=== PATIENT | male | born 1985 | race Caucasian/White ===

== ENCOUNTER → 2017-09-30 10:38 | Outpatient (CLI) | payer OTHER, SELFPAY ==
[2017-09-30 12:06] LABS: Absolute Neutrophil Count 3.9 X10^3/uL (2.0-7.7); Basophil# 0.03 X10^3/uL; Basophil% 0.4 % (0-1); Eosinophil# 0.58 X10^3/uL; Eosinophils% 7.8 % (0-5); Hematocrit 43.6 % (40-54); Lymphocyte % 32.4 % (19-41); Mean Corp Hgb Conc 34.4 g/gl (32-36); Mean Platelet Vol. 10.6 fl (6.2-12.0); Monocyte# 0.45 X10^3/uL; Monocyte% 6.1 % (0-10); Neutrophil # 3.93 X10^3/uL (2.7-7.7); Neutrophil % 53.2 % (47-70); Platelet Count 225 K/mm3 (150-450); RBC Distribution Width SD 40.1 fl (35.1-43.9); Red Blood Count 4.69 M/mm3 (4.6-6.2); White Blood Count 7.4 K/mm3 (4.4-11.0)
[2017-09-30 12:07] LABS: POSITIVE COUNT NO; POSITIVE DIFFERENTIAL NO; POSITIVE MORPHOLOGY NO
[2017-09-30 12:25] LABS: Anion Gap 8 (5-15); BUN 18 mg/dL (7-18); BUN/Creat Ratio 18.7 RATIO (10-20); Calcium,Total 8.8 mg/dL (8.5-10.1); Chloride 106 mmol/L (98-107); Creatinine, Serum 0.96 mg/dL (0.70-1.30); EST Glomerular Filtration Rate 96 mL/min (>60); Est Glom Filt Rate - Afr Amer 117 mL/min (>60); Glucose 306 mg/dL (74-106); Potassium 4.2 mmol/L (3.5-5.1); Sodium Level 136 mmol/L (136-145)
== END ==
PROVIDERS: Family Provider Family Medicine; PCP Family Medicine; Visit Provider Family Medicine
DX: E11.9 Type 2 diabetes mellitus without complications (principal); I10 Essential (primary) hypertension
CPT/HCPCS: 36415; 80048; 85025

== ENCOUNTER 2017-10-11 11:01 | Emergency (ER) | payer OTHER, SELFPAY ==
[2017-10-11 11:02] VITALS: BP 138/45; PULSE 81; RESP 10; TEMP 36.7; O2SAT 100; BMI 28.5
--- NOTE | 2017-10-11 11:31 | CT_ITS ---
STUDY: CT CHEST WITHOUT CONTRAST REASON FOR EXAM: Male, 32 years old. Trauma, pinned between tree limb and bucket truck, pain to upper back/shoulder. + LOC. RADIATION DOSAGE (If Supplied By Facility): CTDIvol = ( 24.83 ) mGy, DLP = ( 892.86 ) mGycm TECHNIQUE: Transaxial imaging was performed without the administration of intravenous contrast material. Individualized dose optimization techniques were used for this CT. COMPARISON: None. FINDINGS: There is a left lower lobe calcified granuloma. There are minimal dependent atelectatic changes. There is no demonstrated pleural abnormality. Normal heart and pericardium. Normal mediastinum. There are left hilar calcified lymph nodes.. Normal unenhanced pulmonary arteries. Normal aorta arch and descending thoracic aorta. There is an acute nondisplaced fracture of the right transverse process of C7, incompletely imaged. There is an acute nondisplaced fracture of the left 11th rib posteriorly. CT/Chest without Contrast IMPRESSION: There are fractures of the right transverse process of C7 and left 11th rib. Electronically Signed: Lashonda Leiva MD at 12:33 EDT , Service support ,
--- NOTE | 2017-10-11 11:31 | CT_ITS ---
STUDY: CT ABDOMEN AND PELVIS WITHOUT CONTRAST REASON FOR EXAM: Male, 32 years old. Trauma, pinned between tree limb and bucket truck, pain to upper back/shoulder. + LOC. RADIATION DOSAGE (If Supplied By Facility): CTDIvol = ( 24.13 ) mGy, DLP = ( 1324.85 ) mGycm TECHNIQUE: Transaxial images were obtained from the dome of the diaphragm to the symphysis pubis without oral contrast, and without intravenous contrast. Sagittal and coronal images were reconstructed. Individualized dose optimization techniques were used for this CT. COMPARISON: None. FINDINGS: Normal liver. The gallbladder is contracted. There are multiple benign calcified granulomata of the spleen. Normal pancreas. Normal bilateral adrenal glands. Normal right kidney. Normal left kidney. Normal visualized stomach. Normal small intestine. Normal colon. The appendix is visualized and appears normal. Normal abdominal aorta. Normal inferior vena cava. Normal retroperitoneum. Normal urinary bladder. Normal abdominal wall. There are acute minimally displaced fractures of the left transverse processes of L2-L4. CT/Abdomen/Pelvis without Cont IMPRESSION: There are acute minimally displaced fractures of the left transverse processes of L2-L4. Electronically Signed: Lashonda Leiva MD at 12:24 EDT , Service support ,
--- NOTE | 2017-10-11 11:31 | CT_ITS ---
STUDY: CT THORACIC SPINE WITHOUT CONTRAST REASON FOR EXAM: Male, 32 years old. Trauma, pinned between tree limb and bucket truck, pain to upper back/shoulder. + LOC. RADIATION DOSAGE (If Supplied By Facility): CTDIvol = ( 28.91 ) mGy, DLP = ( 1237.30 ) mGycm TECHNIQUE: The patient was scanned in a multi detector CT scanner. High resolution imaging was performed. Sagittal and coronal images were reconstructed. Individualized dose optimization techniques were used for this CT. COMPARISON: None. FINDINGS: Normal kyphosis of the thoracic spine. There is no substantial scoliosis. There is mild endplate spondylosis at T2-3 and T3-4 with mild loss of disc height. There is an acute nondisplaced fracture of the left 11th rib posteriorly. CT/Spine Thoracic without Contras IMPRESSION: No vertebral body fracture. Electronically Signed: Lashonda Leiva MD at 12:36 EDT , Service support ,
--- NOTE | 2017-10-11 11:31 | CT_ITS ---
STUDY: CT BRAIN WITHOUT CONTRAST REASON FOR EXAM: Male, 32 years old. History of trauma and loss of consciousness. RADIATION DOSAGE (If Supplied By Facility): CTDIvol = ( 44.99 ) mGy, DLP = ( 812.98 ) mGycm TECHNIQUE: Transaxial CT imaging of the brain was performed without administration of intravenous contrast material. Individualized dose optimization techniques were used for this CT. COMPARISON: None. FINDINGS: Normal soft tissue structures. Normal calvarium. Normal size ventricles and extra-axial spaces for the patient's age. Normal white matter tracts of the cerebral hemispheres. Normal basal ganglia and thalami. Normal brainstem. Normal cerebellum. There is no intracranial hemorrhage. There are no findings of an acute ischemic infarction. Opacification of the ethmoid sinuses bilaterally. Mucosal thickening of the maxillary sinuses. Mild mucosal thickening of the sphenoid sinus. CT/Brain/Head without Contrast IMPRESSION: Sinusitis. Electronically Signed: Bryant Swan MD at 12:37 EDT Tel [phone], Service support ,
--- NOTE | 2017-10-11 11:31 | CT_ITS ---
STUDY: CT CERVICAL SPINE WITHOUT CONTRAST REASON FOR EXAM: Male, 32 years old. History of trauma. Upper back pain and shoulder pain. Loss of consciousness. RADIATION DOSAGE (If Supplied By Facility): CTDIvol = ( 27.52 ) mGy, DLP = ( 641.04 ) mGycm TECHNIQUE: High resolution transaxial imaging was performed without contrast material. Sagittal and coronal images were reconstructed. Individualized dose optimization techniques were used for this CT. COMPARISON: None FINDINGS: Normal craniovertebral junction. Normal anterior atlantoaxial articulation. Normal odontoid process. Normal cervical lordosis. Normal vertebral bodies and posterior osseous elements. C2-3: Normal endplates. Normal disc height and morphology. Normal central canal and intervertebral neuroforamina. C3-4: Normal endplates. Normal disc height and morphology. Normal central canal and intervertebral neuroforamina. C4-5: Normal endplates. Normal disc height and morphology. Normal central canal and intervertebral neuroforamina. C5-6: There is evidence of a comminuted nondisplaced fracture of the posterior arch of the C6 vertebrae on the right side. Nondisplaced fracture along the medial aspect of the facet joint on the left side. C6-7: Nondisplaced fracture of the lateral mass of the C7 vertebrae on the right side. C7-T1: Normal endplates. Normal disc height and morphology. Normal central canal and intervertebral neuroforamina. Normal visualized soft tissue structures. CT/Spine Cervical without Contras IMPRESSION: Comminuted nondisplaced fracture of the posterior arch of the C6 vertebrae on the right side. Nondisplaced fracture of the lateral mass of the C7 vertebrae on the right side. Electronically Signed: Bryant Swan MD at 12:44 EDT Tel [phone], Service support ,
[2017-10-11 11:57] LABS: Absolute Lymphocyte Count 2.22 X10^3/ul (0.83-4.51); Absolute Neutrophil Count 3.7 X10^3/uL (2.0-7.7); Basophil# 0.04 X10^3/uL; Basophil% 0.6 % (0-1); Eosinophil# 0.46 X10^3/uL; Eosinophils% 6.7 % (0-5); Hematocrit 40.4 % (40-54); Hemoglobin 14.7 g/dl (13.0-16.5); Lymphocyte # 2.22 X10^3/ul (4.0); Lymphocyte % 32.3 % (19-41); Mean Corp Hgb Conc 36.4 g/gl (32-36); Mean Corpuscular Hgb 33.3 pg (27.0-32.0); Mean Corpuscular Volume 91.4 fL (80-94); Mean Platelet Vol. 10.4 fl (6.2-12.0); Monocyte# 0.45 X10^3/uL; Monocyte% 6.5 % (0-10); Neutrophil # 3.69 X10^3/uL (2.7-7.7); Neutrophil % 53.6 % (47-70); Platelet Count 238 K/mm3 (150-450); RBC Distribution Width CV 11.6 % (11.6-14.6); RBC Distribution Width SD 38.5 fl (35.1-43.9); Red Blood Count 4.42 M/mm3 (4.6-6.2); White Blood Count 6.9 K/mm3 (4.4-11.0)
[2017-10-11 11:58] LABS: POSITIVE COUNT NO; POSITIVE DIFFERENTIAL NO; POSITIVE MORPHOLOGY NO
[2017-10-11 12:00] LABS: Anion Gap 7 (5-15); BUN 21 mg/dL (7-18); BUN/Creat Ratio 19.6 RATIO (10-20); Calcium,Total 9.2 mg/dL (8.5-10.1); Chloride 105 mmol/L (98-107); Creatinine, Serum 1.07 mg/dL (0.70-1.30); EST Glomerular Filtration Rate 85 mL/min (>60); Est Glom Filt Rate - Afr Amer 103 mL/min (>60); Estimated Creatinine Clearance 106.54 ml/min; Glucose 295 mg/dL (74-106); International Normalized Ratio 0.9; Potassium 4.1 mmol/L (3.5-5.1); Prothrombin Time (Protime)PT. 12.4 SECONDS (11.7-14.9); Sodium Level 137 mmol/L (136-145)
[2017-10-11 12:21] VITALS: BP 113/72; PULSE 77; RESP 15; O2SAT 97; O2SAT 99
[2017-10-11] MEDS: Morphine 4 MG/ML Syringe IV (12:27)
--- NOTE | 2017-10-11 13:09 | ED.DCSUM_ITS ---
- ER Visit Summary Date of Service: 10/11/17 Chief Complaint: Back pain, injury History of Present Illness: The patient is a 32 M who was cutting down a tree when the tree and then pinned him up against another tree. He has having pain in his head, neck and back. He was unable to move his legs after this injury. He was entrapped for about 10 minutes between 2 trees. EMS then extricated him a put him in a c-collar and backboard. Physical Examination: Vital signs reviewed. HEENT exam unremarkable. C-collar is in place. He has lower cervical spine tenderness to palpation. Heart is regular rhythm. Lungs are clear. Abdomen is soft and nontender. Back exam reveals some thoracic tenderness to palpation. Skin shows no trauma. GCS 15. He has weakness of the bilateral legs with 0 out of 5 strength. His arms are 5 out of 5 strength. He has no sensation on the right below the nipple line and no sensation on the left below the waistline Test Results: Blood work is unremarkable except for glucose of 295. CAT scan of the head reveals no findings. CAT scan of the chest reveals a C7 transverse process fracture. CAT scan of the abdomen and pelvis reveals an L2 and L4 transverse process fracture. Cervical spine CT reveals a C6 posterior arch and a C7 lateral mass fracture. No thoracic spine fractures. He does have a left 11th rib fracture. Emergency Department Course and Treatment: Patient was given morphine for pain. Spinal precautions were maintained. My concern is that he has a spinal cord injury with these fractures. Patient will be transferred to [facility] for a trauma evaluation Treatment Plan: [] Disposition: Transfer Impression: C6 and C7 fracture, L2 through L4 fracture. Left 11th rib fracture. Spinal cord injury This note was generated with [employer]elli[employer] dictation software. It may contain incorrect words, spelling, and punctuation that were not noted in review of the chart prior to signing ED Disposition - Plan for ED Patient: Chief Complaint: Trauma Referrals: Eugene Rodriguez MD [Primary Care Provider] -
[2017-10-11] MEDS: HYDROmorphone 1 MG/ML Syringe IV (13:20)
[2017-10-11 13:32] VITALS: BP 118/72; PULSE 70; RESP 16; O2SAT 94
--- NOTE | 2017-10-11 13:50 | NURSING ---
CALLED ADON[facility] [place]
[2017-10-11] MEDS: fentaNYL 100 MCG/2 ML Ampul IV (14:21)
[2017-10-11 14:24] VITALS: BP 104/64; PULSE 78; RESP 18; O2SAT 96
== END 2017-10-11 14:25 | disposition short-term general hospital (02) ==
PROVIDERS: Emergency Provider Emergency Medicine; Family Provider Family Medicine; PCP Family Medicine
DX: S12.500A Unspecified displaced fracture of sixth cervical vertebra, initial encounter for closed fracture (principal); S12.600A Unspecified displaced fracture of seventh cervical vertebra, initial encounter for closed fracture; S32.029A Unspecified fracture of second lumbar vertebra, initial encounter for closed fracture; S32.039A Unspecified fracture of third lumbar vertebra, initial encounter for closed fracture; S32.049A Unspecified fracture of fourth lumbar vertebra, initial encounter for closed fracture; S22.32XA Fracture of one rib, left side, initial encounter for closed fracture; T14.8XXA Other injury of unspecified body region, initial encounter; W23.1XXA Caught, crushed, jammed, or pinched between stationary objects, initial encounter; Y93.9 Activity, unspecified; Y92.9 Unspecified place or not applicable; E11.9 Type 2 diabetes mellitus without complications; Z79.84 Long term (current) use of oral hypoglycemic drugs; Z79.899 Other long term (current) drug therapy; Z72.0 Tobacco use
CPT/HCPCS: 70450; 71250; 72125; 72128; 74176; 80048; 85025; 85610; 96374; 96375; 99285; A4216

== ENCOUNTER 2018-11-01 11:30 | Outpatient (RCR) | payer OTHER, SELFPAY ==
[2018-10-12 09:54] VITALS: BP 82/48; PULSE 93; RESP 16; TEMP 36.4; BMI 21.8
--- NOTE | 2018-10-12 17:03 | PCM.WC.HP ---
(1) Sacral decubitus ulcer, stage IV Status: Chronic Code(s): L89.154 - Pressure ulcer of sacral region, stage 4 (2) Decubitus ulcer of right buttock, stage 4 Status: Chronic Code(s): L89.314 - Pressure ulcer of right buttock, stage 4 (3) Decubitus ulcer of left buttock, stage 4 Status: Chronic Code(s): L89.324 - Pressure ulcer of left buttock, stage 4 (4) Chronic osteomyelitis involving pelvic region and thigh Status: Chronic Code(s): M86.659 - Other chronic osteomyelitis, unspecified thigh (5) Paraplegia Status: Chronic Code(s): G82.20 - Paraplegia, unspecified History of Present Illness Date of Service: 10/17/18 Chief Complaint: Non healing decubitus ulcers. History of Wound: Mr. Joyce is a 33yo who presents to the wound center for management of his chronic decubitus ulcers. Initial sacral ulcer was said to have started in November and Buttock ulcers were noted subsequently. He has had an extensive hospital stay over the last couple of months following a work related injury. Both during his hopsital and assisted stays, he had wound care ranging from surgical debridement, wound vac and collagen use. He was scheduled to be restarted on his wound Vac prior to his discharge from the [place]. He reports significant drainage from the wounds. Also of note is a history of osteomyelitis for which he was on a 6 week IV antibiotic. His however states they were informed that he had developed chronic extensive pelvic area osteomyelitis. He feels well otherwise at this time and denies chills, fever,nausea, vomitting or change in bowel habit. Past Medical History Past Medical History: Chronic Problems Sacral decubitus ulcer, stage IV (Chronic) Decubitus ulcer of right buttock, stage 4 (Chronic) Decubitus ulcer of left buttock, stage 4 (Chronic) Chronic osteomyelitis involving pelvic region and thigh (Chronic) Paraplegia (Chronic) Allergies/Adverse Reactions: Allergies lidocaine Allergy (Verified 10/12/18 10:43) Unknown Home Medications: Ambulatory Orders Medication Instructions Recorded Atorvastatin Calcium [Lipitor] 20 mg PO QHS 10/11/17 Sitagliptin Phosphate [Januvia] 100 mg PO DAILY 10/11/17 Baclofen 5 mg PO BID 10/12/18 Diazepam [Valium] 5 mg PO BID 10/12/18 Fentanyl 25 ea TD 10/12/18 Ferrous Sulfate 325 mg PO 10/12/18 Insulin Glargine,Hum.rec.anlog 10 unit SQ 10/12/18 [Lantus Solostar] Insulin Lispro [Humalog KwikPen] unit SQ 10/12/18 Magnesium Oxide [Magnesium] 400 mg PO BID 10/12/18 Melatonin 3 mg PO 10/12/18 Metoclopramide HCl [Reglan] 5 mg PO TID 10/12/18 Oxycodone [Oxyfast] 10 mg PO Q4H PRN 10/12/18 Pregabalin [Lyrica] 50 mg PO BID 10/12/18 Sitagliptin Phosphate [Januvia] 100 mg PO 10/12/18 traZODone [Desyrel] 100 mg PO QHS 10/12/18 Smoking Status: Former smoker Review of Systems Constitutional: Denies: Anorexia, Chills, Fever Eyes: Denies: Blurred vision, Redness HEENT: Denies: Difficulty Swallowing Cardiovascular: Denies: Chest Pain, Chest Tightness Respiratory: Denies: Hemoptysis Gastrointestinal: Denies: Hematemesis, Vomiting - Physical Exam Vital Signs Temp Pulse Resp BP 97.6 F L 93 16 82/48 L 10/12/18 09:54 10/12/18 09:54 10/12/18 09:54 10/12/18 09:54 General: Alert, Oriented x3, Cooperative HEENT: Atraumatic, Normocephalic Oral: Moist Mucosa Neck: Supple Abdomen: Non-Distended Extremities: No cyanosis Skin: Ulcer/ Wound Wound Measurements and Assessment WC - Nurse 1 - General Ulcer Measurement Start: 10/12/18 09:54 Freq: Status: Active Protocol: Activity Type Activity Date Activity User E-Sign Co-Sign Detail Recorded Client Recorded Date Recorded By Document 10/12/18 09:54 DL [email or web address] 10/12/18 10:36 DL 10/12/18 09:54 Wound Center Nurse 1 [Ulcer Assessment] #3 L Buttucks -Current Size (cm) - Length 10 -Current Size (cm) - Width 6.3 -Current Size (cm) - Depth 3.4 -Total Square Cm 63.0 -Photo Taken Yes -Tunneling Position (O'clock) 1 -Tunneling Distance (cm) 5 -Classification - Thickness Full Thickness without Exposed Support Structure -Exudate Amt Medium -Exudate Type Serosanguineous -Wound Margin Thickened & Rolled Under -Granulation Amt Medium (34-66%) -Granulation Quality Red -Necrosis Amt Medium (34-66%) -Necrotic Tissue Type Adherent Slough -Structure Exposed N/A -Texture (Sheyla-wound Skin Appearance) Scarring -Moisture (Sheyla-wound Skin Appearance No Abnormality ) -Color (Sheyla-wound Skin Appearance) No Abnormality -Temperature (Sheyla-wound Skin No Abnormality Appearance) (Pt Warm) -Tenderness on Palpation (Sheyla-wound No Skin Appearance) -Ulcer Cleansing Wound Cleanser -Foul Odor after Cleansing No #2 Scaral Cluster -Current Size (cm) - Length 13 -Current Size (cm) - Width 11.2 -Current Size (cm) - Depth 1.8 -Total Square Cm 145.6 -Photo Taken Yes -Undermining/Tunneling Starts (O' 7 clock) -Undermining/Tunneling Ends (O'clock) 11 -Maximum Distance (cm) 1.8 -Undermining/Tunneling Starts #2 (O' 1 clock) -Undermining/Tunneling Ends #2 (O' 4 clock) -Maximum Distance #2 (cm) 2.1 -Circular Undermining No -Classification - Thickness Full Thickness without Exposed Support Structure -Exudate Amt Medium -Exudate Type Serosanguineous -Wound Margin Thickened & Rolled Under -Granulation Amt Large (67-100%) -Granulation Quality Red -Necrosis Amt Medium (34-66%) -Necrotic Tissue Type Adherent Slough -Structure Exposed N/A -Texture (Sheyla-wound Skin Appearance) Scarring -Moisture (Sheyla-wound Skin Appearance No Abnormality ) -Color (Sheyla-wound Skin Appearance) No Abnormality -Temperature (Sheyla-wound Skin No Abnormality Appearance) (Pt Warm) -Foul Odor after Cleansing Yes, Due to Product Use #1 R Buttocks -Current Size (cm) - Length 9.7 -Current Size (cm) - Width 6 -Current Size (cm) - Depth 1.8 -Total Square Cm 58.2 -Photo Taken Yes -Undermining/Tunneling Starts (O' 12 clock) -Undermining/Tunneling Ends (O'clock) 2 -Maximum Distance (cm) 1.8 -Classification - Thickness Full Thickness without Exposed Support Structure -Exudate Amt Medium -Exudate Type Serosanguineous -Wound Margin Thickened & Rolled Under -Granulation Amt Medium (34-66%) -Granulation Quality Red -Necrosis Amt Medium (34-66%) -Necrotic Tissue Type Adherent Slough -Structure Exposed N/A -Texture (Sheyla-wound Skin Appearance) Scarring -Moisture (Sheyla-wound Skin Appearance No Abnormality ) -Color (Sheyla-wound Skin Appearance) Rubor -Temperature (Sheyla-wound Skin No Abnormality Appearance) (Pt Warm) -Tenderness on Palpation (Sheyla-wound No Skin Appearance) -Ulcer Cleansing Wound Cleanser -Foul Odor after Cleansing No WC - Nurse 2 - General Ulcer CM Notes Start: 10/12/18 09:54 Freq: Status: Active Protocol: Activity Type Activity Date Activity User E-Sign Co-Sign Detail Recorded Client Recorded Date Recorded By Document 10/12/18 11:30 MW [id number] 10/12/18 11:55 MW 10/12/18 11:30 Wound Center Nurse 2 [Procedure/Treatment] #3 L Buttucks -Time 11:33 -Correct Patient Yes -Correct Side, Site, Position Yes -Correct Procedure Yes -Procedure Performed Yes -Type of Procedure Debridement -Clinical Debridement Subcutaneous -Post Debridement Size (cm) - Length 10.0 -Post Debridement Size (cm) - Width 7.0 -Post Debridement Size (cm) - Depth 4.0 -Total Square Cm 70.00 -Wound/Ulcer Outcome Not Healed -Ulcer Cleansing Rinsed/ Irrigated with Saline -Foul Odor after Cleansing No -Bioengineered Tissue No -Bleeding Controlled with Pressure -Offloading No -Treatment Response Procedure Tolerated Well #2 Scaral Cluster -Time 11:33 -Correct Patient Yes -Correct Side, Site, Position Yes -Correct Procedure Yes -Procedure Performed Yes -Type of Procedure Debridement -Clinical Debridement Subcutaneous -Post Debridement Size (cm) - Length 12.0 -Post Debridement Size (cm) - Width 14.5 -Post Debridement Size (cm) - Depth 3.3 -Total Square Cm 174.00 -Wound/Ulcer Outcome Not Healed -Ulcer Cleansing Rinsed/ Irrigated with Saline -Foul Odor after Cleansing No -Bioengineered Tissue No -Bleeding Controlled with Pressure -Other UNDERMINING 7- 11 & 12-5, 3. 0CM -Offloading No -Treatment Response Procedure Tolerated Well #1 R Buttocks -Time 11:32 -Correct Patient Yes -Correct Side, Site, Position Yes -Correct Procedure Yes -Procedure Performed Yes -Type of Procedure Debridement -Clinical Debridement Subcutaneous -Post Debridement Size (cm) - Length 10.0 -Post Debridement Size (cm) - Width 5.0 -Post Debridement Size (cm) - Depth 2.0 -Total Square Cm 50.00 -Wound/Ulcer Outcome Not Healed -Ulcer Cleansing Rinsed/ Irrigated with Saline -Foul Odor after Cleansing No -Bioengineered Tissue No -Bleeding Controlled with Pressure -Other UNDERMINING 12- 4, 3.0CM -Offloading No -Treatment Response Procedure Tolerated Well [See Physician Procedure note for Specifics] Pain Scale: 0-10 Numeric [Pain] -Is Patient Pain Free? Yes Neurological: Cranial nerves II-XII grossly intact Psych/Mental Status: Normal Affect Debridement Note Post-Debridement Measurements/Treatment WC - Nurse 2 - General Ulcer CM Notes Start: 10/12/18 09:54 Freq: Status: Active Protocol: Activity Type Activity Date Activity User E-Sign Co-Sign Detail Recorded Client Recorded Date Recorded By Document 10/12/18 11:30 MW [id number] 10/12/18 11:55 MW 10/12/18 11:30 Wound Center Nurse 2 #3 L Buttucks -Time 11:33 -Correct Patient Yes -Correct Side, Site, Position Yes -Correct Procedure Yes -Procedure Performed Yes -Type of Procedure Debridement -Clinical Debridement Subcutaneous -Post Debridement Size (cm) - Length 10.0 -Post Debridement Size (cm) - Width 7.0 -Post Debridement Size (cm) - Depth 4.0 -Total Square Cm 70.00 -Wound/Ulcer Outcome Not Healed -Ulcer Cleansing Rinsed/ Irrigated with Saline -Foul Odor after Cleansing No -Bioengineered Tissue No -Bleeding Controlled with Pressure -Offloading No -Treatment Response Procedure Tolerated Well #2 Scaral Cluster -Time 11:33 -Correct Patient Yes -Correct Side, Site, Position Yes -Correct Procedure Yes -Procedure Performed Yes -Type of Procedure Debridement -Clinical Debridement Subcutaneous -Post Debridement Size (cm) - Length 12.0 -Post Debridement Size (cm) - Width 14.5 -Post Debridement Size (cm) - Depth 3.3 -Total Square Cm 174.00 -Wound/Ulcer Outcome Not Healed -Ulcer Cleansing Rinsed/ Irrigated with Saline -Foul Odor after Cleansing No -Bioengineered Tissue No -Bleeding Controlled with Pressure -Other UNDERMINING 7- 11 & 12-5, 3. 0CM -Offloading No -Treatment Response Procedure Tolerated Well #1 R Buttocks -Time 11:32 -Correct Patient Yes -Correct Side, Site, Position Yes -Correct Procedure Yes -Procedure Performed Yes -Type of Procedure Debridement -Clinical Debridement Subcutaneous -Post Debridement Size (cm) - Length 10.0 -Post Debridement Size (cm) - Width 5.0 -Post Debridement Size (cm) - Depth 2.0 -Total Square Cm 50.00 -Wound/Ulcer Outcome Not Healed -Ulcer Cleansing Rinsed/ Irrigated with Saline -Foul Odor after Cleansing No -Bioengineered Tissue No -Bleeding Controlled with Pressure -Other UNDERMINING 12- 4, 3.0CM -Offloading No -Treatment Response Procedure Tolerated Well Pain Scale: 0-10 Numeric Is Patient Pain Free? Yes Wound debrided: Sacral Cluster Wound Grade/Stage: Stage IV Type of Debridement: Excisional debridement Depth: Down to and including healthy tissue, in the subcutaneous layer Percentage of wound debrided: 100 Instrument Used: 7mm curette Tissue Removed: Slough and devitalized tissue Severity: Fat Layer Exposed Amount of bleeding with debridement: Mild Bleeding Controlled with: Pressure Patient tolerated procedure well - Additional Wound Wound debrided: Right Buttock Wound Grade/Stage: Stage IV Type of Debridement: Excisional debridement Depth: Down to and including healthy tissue, in the subcutaneous layer Percentage of wound debrided: 100 Instrument Used: 7mm curette Tissue Removed: Slough and devitalized tissue Severity: Fat Layer Exposed Amount of bleeding with debridement: Mild Bleeding Controlled with: Pressure Patient tolerated procedure: Patient tolerated procedure well - Additional Wound Wound debrided: Left Buttock Wound Grade/Stage: Stage IV Type of Debridement: Excisional debridement Depth: Down to and including healthy tissue, in the subcutaneous layer Percentage of wound debrided: 100 Instrument Used: 7mm curette Tissue Removed: Slough and devitalized tissue Severity: Fat Layer Exposed Amount of bleeding with debridement: Mild Bleeding Controlled with: Pressure Patient tolerated procedure: Patient tolerated procedure well Assessment/Plan Assessment: Same as above. Plan: Debridement done as documented above, procedure was well tolerated. Extensive and significant decubitus ulcers in the setting of chronic osteomyelitis. Also copious drainage mostly of the sacral ulcers. New clusters around sacral ulcer said to have started after NH discharge again largely due to concerns with drainage. Patient will definitely benefit from a wound Vac to all ulcers due to depth and drainage however, at this time he wants this only to the sacral ulcer. He states that he had concerns when he had all three ulcers bridged in the past. Diverting colostomy also recommended to reduce the risk of infection however, patient states that he is not open to this at this time. Due to his chronic osteomyeliis Carlos Manuel will be a good candidate for HBO therapy. Will get records from [facility] and begin the process to get this started. They have been applying collagen and calium aglinate dressing over top. Will continue this as they believe this is helping. They were however advsed to apply Santyl to the right top necrotoc sacral area. Continue optimal dietary and protein intake. Offloading also recommended. His questions were answered and they were advised to call with any further questions or concerns. Follow up in 1 week.
--- NOTE | 2018-10-25 11:49 | WC ---
This nurse spoke with Bailey from [facility] regarding Carlos Manuel Joyce, 87. This nurse was informed that they have not received any orders from the appointments here at the [facility]. This nurse verified fax number and sent fax with the understanding that if Bailey did not receive the physician order within 5 minutes to please call back right away to let us know. Bailey also informed this nurse that while we were on the phone, Carlos Manuel was being taken by [facility] to [facility] in [place] due to his confusion and suspected UTI. Bailey stated that she would inform the , Anitha, to call the center and let us know if he will keep his appt on , 10/26/18 or cancel due to admission to the hospital. In regards to the application of pts wound vac, this nurse informed Bailey that we will change his appointments to Wednesdays d/t his vac order stating it is to be changed three times a week. Home health is not in the home on the weekends, so the vac needs changed on Mondays, Wednesdays, and Fridays. Bailey stated that she will inform the patient's . This nurse informed Karele JOHNSTON and Juju of conversation.
[2018-11-01 11:36] VITALS: BP 98/51; PULSE 86; RESP 18; TEMP 36.5; BMI 21.8
--- NOTE | 2018-11-01 19:25 | PN.PCM_ITS ---
(1) Sacral decubitus ulcer, stage IV Status: Chronic Current Visit: Yes Code(s): L89.154 - Pressure ulcer of sacral region, stage 4 (2) Decubitus ulcer of right buttock, stage 4 Status: Chronic Current Visit: Yes Code(s): L89.314 - Pressure ulcer of right buttock, stage 4 (3) Decubitus ulcer of left buttock, stage 4 Status: Chronic Current Visit: Yes Code(s): L89.324 - Pressure ulcer of left buttock, stage 4 (4) Chronic osteomyelitis involving pelvic region and thigh Status: Chronic Current Visit: Yes Code(s): M86.659 - Other chronic osteomyelitis, unspecified thigh (5) Paraplegia Status: Chronic Current Visit: Yes Code(s): G82.20 - Paraplegia, unspecified Type of Wound Date of Service: 11/01/18 Chief Complaint: Non healing decubitus ulcers. History of Wound: Mr. Joyce is a 33yo who presents to the wound center for management of his chronic decubitus ulcers. Initial sacral ulcer was said to have started in November and Buttock ulcers were noted subsequently. He has had an extensive hospital stay over the last couple of months following a work related injury. Both during his hopsital and shelter stays, he had wound care ranging from surgical debridement, wound vac and collagen use. He was aura eduled to be restarted on his wound Vac prior to his discharge from the [facility]. He reports significant drainage from the wounds. Also of note is a history of osteomyelitis for which he was on a 6 week IV antibiotic. His however states they were informed that he had developed chronic extensive pelvic area osteomyelitis. He feels well otherwise at this time and denies chills, fever,nausea, vomitting or change in bowel habit. Progress of Wound: Status post recent hospital admission for sepsis/UTI. Recently completed antibiotics. Now approved for wound VAC. No other concerns at this time. - Physical Exam Vital Signs Temp Pulse Resp BP 97.7 F L 86 18 98/51 L 11/01/18 11:36 11/01/18 11:36 11/01/18 11:36 11/01/18 11:36 General: Alert, Oriented x3, Cooperative, No apparent distress HEENT: Atraumatic, Normocephalic Oral: Moist Mucosa Neck: Supple Lungs: Normal air movement Skin: Ulcer/ Wound Wound Measurements and Assessment WC - Nurse 1 - General Ulcer Measurement Start: 10/12/18 09:54 Freq: Status: Active Protocol: Activity Type Activity Date Activity User E-Sign Co-Sign Detail Recorded Client Recorded Date Recorded By Document 11/01/18 11:36 BABAK [id number] 11/01/18 11:57 AN 11/01/18 11:36 Wound Center Nurse 1 [Ulcer Assessment] #3 L Buttucks -Combined with other wound No -Current Size (cm) - Length 9 -Current Size (cm) - Width 6 -Current Size (cm) - Depth 2.8 -Total Square Cm 54 -Photo Taken No -Epithelialization None Present -Tunneling No -Undermining/Tunneling Yes -Undermining/Tunneling Starts (O' 12 clock) -Undermining/Tunneling Ends (O'clock) 3 -Maximum Distance (cm) 4.6 -Circular Undermining No -Exudate Amt Medium -Exudate Type Serosanguineous -Wound Margin Thickened & Rolled Under -Granulation Amt Large (67-100%) -Granulation Quality Red -Slough/Fibrin Yes -Necrosis Amt Small (1-33%) -Necrotic Tissue Type Adherent Slough -Texture (Sheyla-wound Skin Appearance) Assessed -Moisture (Sheyla-wound Skin Appearance Assessed ) -Color (Sheyla-wound Skin Appearance) Assessed, Erythema -Temperature (Sheyla-wound Skin No Abnormality Appearance) (Pt Warm) -Tenderness on Palpation (Sheyla-wound Yes Skin Appearance) -Ulcer Cleansing soap and water -Foul Odor after Cleansing No #2 Sacral Cluster -Combined with other wound No -Current Size (cm) - Length 9 -Current Size (cm) - Width 13.4 -Current Size (cm) - Depth 1.8 -Total Square Cm 120.6 -Photo Taken No -Epithelialization None Present -Tunneling No -Undermining/Tunneling Yes -Undermining/Tunneling Starts (O' 7 clock) -Undermining/Tunneling Ends (O'clock) 10 -Maximum Distance (cm) 3.3 -Undermining/Tunneling Starts #2 (O' 1 clock) -Undermining/Tunneling Ends #2 (O' 4 clock) -Maximum Distance #2 (cm) 2.8 -Circular Undermining No -Exudate Amt Medium -Exudate Type Serosanguineous -Wound Margin Thickened & Rolled Under -Granulation Amt Large (67-100%) -Granulation Quality Red -Slough/Fibrin Yes -Necrosis Amt Small (1-33%) -Necrotic Tissue Type Adherent Slough -Texture (Sheyla-wound Skin Appearance) Assessed, Scarring -Moisture (Sheyla-wound Skin Appearance Assessed ) -Color (Sheyla-wound Skin Appearance) Assessed, Erythema -Temperature (Sheyla-wound Skin No Abnormality Appearance) (Pt Warm) -Tenderness on Palpation (Sheyla-wound Yes Skin Appearance) -Ulcer Cleansing soap and water -Foul Odor after Cleansing No #1 R Buttocks -Combined with other wound No -Current Size (cm) - Length 9.7 -Current Size (cm) - Width 6.7 -Current Size (cm) - Depth 1.2 -Total Square Cm 64.99 -Photo Taken No -Epithelialization None Present -Tunneling No -Undermining/Tunneling No -Circular Undermining No -Exudate Amt Medium -Exudate Type Serosanguineous -Wound Margin Thickened & Rolled Under -Granulation Amt Large (67-100%) -Granulation Quality Red -Slough/Fibrin Yes -Necrosis Amt Small (1-33%) -Necrotic Tissue Type Adherent Slough -Texture (Sheyla-wound Skin Appearance) Assessed, Scarring -Moisture (Sheyla-wound Skin Appearance Assessed ) -Color (Sheyla-wound Skin Appearance) Assessed, Erythema -Temperature (Sheyla-wound Skin No Abnormality Appearance) (Pt Warm) -Tenderness on Palpation (Sheyla-wound Yes Skin Appearance) -Ulcer Cleansing soap and water -Foul Odor after Cleansing No WC - Nurse 2 - General Ulcer CM Notes Start: 10/12/18 09:54 Freq: Status: Active Protocol: Activity Type Activity Date Activity User E-Sign Co-Sign Detail Recorded Client Recorded Date Recorded By Document 11/01/18 12:22 MW [id number] 11/01/18 12:47 MW 11/01/18 12:22 Wound Center Nurse 2 [Procedure/Treatment] #3 L Buttucks -Time 12:22 -Correct Patient Yes -Correct Side, Site, Position Yes -Correct Procedure Yes -Procedure Performed Yes -Type of Procedure Debridement -Clinical Debridement Subcutaneous -Post Debridement Size (cm) - Length 8.5 -Post Debridement Size (cm) - Width 6.5 -Post Debridement Size (cm) - Depth 3.9 -Total Square Cm 55.25 -Wound/Ulcer Outcome Not Healed -Ulcer Cleansing Rinsed/ Irrigated with Saline -Foul Odor after Cleansing No -Bioengineered Tissue No -Bleeding Controlled with Pressure -Other tunnel @1 , 5. 9cm -Offloading No -Treatment Response Procedure Tolerated Well #2 Sacral Cluster -Time 12:23 -Correct Patient Yes -Correct Side, Site, Position Yes -Correct Procedure Yes -Procedure Performed Yes -Type of Procedure Debridement -Clinical Debridement Subcutaneous -Post Debridement Size (cm) - Length 12.0 -Post Debridement Size (cm) - Width 14.0 -Post Debridement Size (cm) - Depth 3.0 -Total Square Cm 168.00 -Wound/Ulcer Outcome Not Healed -Ulcer Cleansing Rinsed/ Irrigated with Saline -Foul Odor after Cleansing No -Bioengineered Tissue No -Bleeding Controlled with Pressure -Other undermining 7- 11, 3.5cm & 12 -5, 2.5cm -Offloading No -Treatment Response Procedure Tolerated Well #1 R Buttocks -Time 12:23 -Correct Patient Yes -Correct Side, Site, Position Yes -Correct Procedure Yes -Procedure Performed Yes -Type of Procedure Debridement -Clinical Debridement Subcutaneous -Post Debridement Size (cm) - Length 9.0 -Post Debridement Size (cm) - Width 5.0 -Post Debridement Size (cm) - Depth 1.5 -Total Square Cm 45.00 -Wound/Ulcer Outcome Not Healed -Ulcer Cleansing Rinsed/ Irrigated with Saline -Foul Odor after Cleansing No -Bioengineered Tissue No -Bleeding Controlled with Pressure -Other undermining 12- 4, 2.7cm -Offloading No -Treatment Response Procedure Tolerated Well [See Physician Procedure note for Specifics] Pain Scale: 0-10 Numeric [Pain] -Is Patient Pain Free? Yes Musculoskeletal: Muscle Wasting Neurological: Cranial nerves II-XII grossly intact Psych/Mental Status: Normal Affect Debridement Note Post-Debridement Measurements/Treatment WC - Nurse 2 - General Ulcer CM Notes Start: 10/12/18 09:54 Freq: Status: Active Protocol: Activity Type Activity Date Activity User E-Sign Co-Sign Detail Recorded Client Recorded Date Recorded By Document 10/12/18 11:30 MW [id number] 10/12/18 11:55 MW Document 11/01/18 12:22 MW [id number] 11/01/18 12:47 MW 10/12/18 11/01/18 11:30 12:22 Wound Center Nurse 2 #3 L Buttucks -Time 11:33 12:22 -Correct Patient Yes Yes -Correct Side, Site, Position Yes Yes -Correct Procedure Yes Yes -Procedure Performed Yes Yes -Type of Procedure Debridement Debridement -Clinical Debridement Subcutaneous Subcutaneous -Post Debridement Size (cm) - Length 10.0 8.5 -Post Debridement Size (cm) - Width 7.0 6.5 -Post Debridement Size (cm) - Depth 4.0 3.9 -Total Square Cm 70.00 55.25 -Wound/Ulcer Outcome Not Healed Not Healed -Ulcer Cleansing Rinsed/ Rinsed/ Irrigated with Irrigated with Saline Saline -Foul Odor after Cleansing No No -Bioengineered Tissue No No -Bleeding Controlled with Pressure Pressure -Other tunnel @1 , 5. 9cm -Offloading No No -Treatment Response Procedure Procedure Tolerated Well Tolerated Well #2 Sacral Cluster -Time 11:33 12:23 -Correct Patient Yes Yes -Correct Side, Site, Position Yes Yes -Correct Procedure Yes Yes -Procedure Performed Yes Yes -Type of Procedure Debridement Debridement -Clinical Debridement Subcutaneous Subcutaneous -Post Debridement Size (cm) - Length 12.0 12.0 -Post Debridement Size (cm) - Width 14.5 14.0 -Post Debridement Size (cm) - Depth 3.3 3.0 -Total Square Cm 174.00 168.00 -Wound/Ulcer Outcome Not Healed Not Healed -Ulcer Cleansing Rinsed/ Rinsed/ Irrigated with Irrigated with Saline Saline -Foul Odor after Cleansing No No -Bioengineered Tissue No No -Bleeding Controlled with Pressure Pressure -Other UNDERMINING 7- undermining 7- 11 & 12-5, 3. 11, 3.5cm & 12 0CM -5, 2.5cm -Offloading No No -Treatment Response Procedure Procedure Tolerated Well Tolerated Well #1 R Buttocks -Time 11:32 12:23 -Correct Patient Yes Yes -Correct Side, Site, Position Yes Yes -Correct Procedure Yes Yes -Procedure Performed Yes Yes -Type of Procedure Debridement Debridement -Clinical Debridement Subcutaneous Subcutaneous -Post Debridement Size (cm) - Length 10.0 9.0 -Post Debridement Size (cm) - Width 5.0 5.0 -Post Debridement Size (cm) - Depth 2.0 1.5 -Total Square Cm 50.00 45.00 -Wound/Ulcer Outcome Not Healed Not Healed -Ulcer Cleansing Rinsed/ Rinsed/ Irrigated with Irrigated with Saline Saline -Foul Odor after Cleansing No No -Bioengineered Tissue No No -Bleeding Controlled with Pressure Pressure -Other UNDERMINING 12- undermining 12- 4, 3.0CM 4, 2.7cm -Offloading No No -Treatment Response Procedure Procedure Tolerated Well Tolerated Well Pain Scale: 0-10 Numeric Is Patient Pain Free? Yes Yes Wound debrided: Sacrum Wound Grade/Stage: Stage IV Type of Debridement: Excisional debridement Anesthesia Used: 4% Lidocaine Solution Depth: Down to and including healthy tissue, in the subcutaneous layer Percentage of wound debrided: 100 Instrument Used: 7mm curette, #15 blade, Forceps Tissue Removed: Slough and devitalized tissue Severity: Fat Layer Exposed Amount of bleeding with debridement: Mild Bleeding Controlled with: Pressure Patient tolerated procedure well - Additional Wound Wound debrided: Right buttock Wound Grade/Stage: Stage IV Type of Debridement: Excisional debridement Anesthesia Used: 4% Lidocaine Solution Depth: Down to and including healthy tissue, in the subcutaneous layer Percentage of wound debrided: 100 Instrument Used: 7mm curette Tissue Removed: Slough and devitalized tissue Severity: Fat Layer Exposed Amount of bleeding with debridement: Mild Bleeding Controlled with: Pressure Patient tolerated procedure: Patient tolerated procedure well - Additional Wound Wound debrided: Left buttock Wound Grade/Stage: Stage IV Type of Debridement: Excisional debridement Anesthesia Used: 4% Lidocaine Solution Depth: Down to and including healthy tissue, in the subcutaneous layer Percentage of wound debrided: 100 Instrument Used: 7mm curette Tissue Removed: Slough and devitalized tissue Severity: Fat Layer Exposed Amount of bleeding with debridement: Mild Bleeding Controlled with: Pressure Patient tolerated procedure: Patient tolerated procedure well Assessment/Plan Active Problems Sacral decubitus ulcer, stage IV (Chronic) Decubitus ulcer of right buttock, stage 4 (Chronic) Decubitus ulcer of left buttock, stage 4 (Chronic) Chronic osteomyelitis involving pelvic region and thigh (Chronic) Paraplegia (Chronic) Assessment: Same as above. Plan: Debridement done as documented above, procedure was well tolerated. Ulcers largely stable. Now approved for wound VAC however he wants this Applied to his sacral ulcer for now. Start wound VAC at 125 mmHg to sacral ulcer. Change every other day. He states that he had concerns when he had all three ulcers bridged in the past. Diverting colostomy also recommended to reduce the risk of infection however, patient states that he is not open to this at this time. Due to his chronic osteomyeliis Carlos Manuel will be a good candidate for HBO therapy. Will get records from [facility] and begin the process to get this started. Continue collagen and calium aglinate dressing over top. Continue Santyl to right top sacral area before wound VAC. Continue optimal dietary and protein intake. Offloading also recommended. His questions were answered and they were advised to call with any further questions or concerns. Follow up in 1 week.
== END 2018-11-11 23:59 ==
LOC: WC 11:30
PROVIDERS: Family Provider Family Medicine; PCP Family Medicine; Visit Provider Internal Medicine
DX: L89.154 Pressure ulcer of sacral region, stage 4 (principal); G82.20 Paraplegia, unspecified; M86.659 Other chronic osteomyelitis, unspecified thigh; L89.314 Pressure ulcer of right buttock, stage 4; L89.324 Pressure ulcer of left buttock, stage 4; Z87.891 Personal history of nicotine dependence; Z79.899 Other long term (current) drug therapy
CPT/HCPCS: 11042; 11045; 99203; G0463

== ENCOUNTER 2018-11-30 11:30 | Outpatient (RCR) | payer OTHER, SELFPAY ==
[2018-11-12 01:05] VITALS: BP 98/51; PULSE 86; RESP 18; TEMP 36.5
[2018-11-16 12:12] VITALS: BP 96/53; PULSE 110; RESP 16; TEMP 36; BMI 21.8
--- NOTE | 2018-11-16 22:15 | PN.PCM_ITS ---
(1) Chronic osteomyelitis involving pelvic region and thigh Status: Chronic Current Visit: Yes Code(s): M86.659 - Other chronic osteomyelitis, unspecified thigh (2) Decubitus ulcer of left buttock, stage 4 Status: Chronic Current Visit: Yes Code(s): L89.324 - Pressure ulcer of left buttock, stage 4 (3) Decubitus ulcer of right buttock, stage 4 Status: Chronic Current Visit: Yes Code(s): L89.314 - Pressure ulcer of right buttock, stage 4 (4) Paraplegia Status: Chronic Current Visit: Yes Code(s): G82.20 - Paraplegia, unspecified (5) Sacral decubitus ulcer, stage IV Status: Chronic Current Visit: Yes Code(s): L89.154 - Pressure ulcer of sacral region, stage 4 Type of Wound Date of Service: 11/16/18 Chief Complaint: Non healing decubitus ulcers. History of Wound: Mr. Joyce is a 33yo who presents to the wound center for management of his chronic decubitus ulcers. Initial sacral ulcer was said to have started in November and Buttock ulcers were noted subsequently. He has had an extensive hospital stay over the last couple of months following a work related injury. Both during his [facility] and [facility] stays, he had wound care ranging from surgical debridement, wound vac and collagen use. He was aura eduled to be restarted on his wound Vac prior to his discharge from the [facility]. He reports significant drainage from the wounds. Also of note is a history of osteomyelitis for which he was on a 6 week IV antibiotic. His however states they were informed that he had developed chronic extensive pelvic area osteomyelitis. He feels well otherwise at this time and denies chills, fever,nausea, vomitting or change in bowel habit. Progress of Wound: Increased drainage from the sacral ulcer and worsening noted over the past week. Missed his last appointment 1 week ago and worsening said to have been noted since tuesday. Tolerated the wound vac well for a week but subsequently had problems with application./sealing. - Physical Exam Vital Signs Temp Pulse Resp BP 96.8 F L 110 H 16 96/53 L 11/16/18 12:12 11/16/18 12:12 11/16/18 12:12 11/16/18 12:12 General: No apparent distress, Lethargic HEENT: Atraumatic, Normocephalic Abdomen: Gravid Extremities: No cyanosis Skin: Ulcer/ Wound Wound Measurements and Assessment WC - Nurse 1 - General Ulcer Measurement Start: 11/16/18 12:12 Freq: Status: Active Protocol: Activity Type Activity Date Activity User E-Sign Co-Sign Detail Recorded Client Recorded Date Recorded By Document 11/16/18 12:12 [facility] [id number] 11/16/18 12:35 [facility] 11/16/18 12:12 Wound Center Nurse 1 [Ulcer Assessment] #3 L Buttucks -Combined with other wound No -Current Size (cm) - Length 9.4 -Current Size (cm) - Width 5.8 -Current Size (cm) - Depth 4 -Total Square Cm 54.52 -Photo Taken No -Epithelialization None Present -Tunneling No -Undermining/Tunneling Yes -Undermining/Tunneling Starts (O' 1 clock) -Undermining/Tunneling Ends (O'clock) 4 -Maximum Distance (cm) 4.6 -Circular Undermining No -Classification - Thickness Full Thickness with Exposed Support Structure -Exudate Amt Medium -Exudate Type Yellow/Green -Wound Margin Thickened & Rolled Under -Granulation Amt Large (67-100%) -Granulation Quality Red -Slough/Fibrin Yes -Necrosis Amt Small (1-33%) -Necrotic Tissue Type Adherent Slough -Texture (Sheyla-wound Skin Appearance) Assessed, Scarring -Moisture (Sheyla-wound Skin Appearance Assessed ) -Color (Sheyla-wound Skin Appearance) Assessed -Temperature (Sheyla-wound Skin No Abnormality Appearance) (Pt Warm) -Tenderness on Palpation (Sheyla-wound No Skin Appearance) -Ulcer Cleansing SOAP AND WATER -Foul Odor after Cleansing No #2 Sacral Cluster -Combined with other wound No -Current Size (cm) - Length 8 -Current Size (cm) - Width 13.6 -Current Size (cm) - Depth 1.7 -Total Square Cm 108.8 -Photo Taken No -Epithelialization None Present -Tunneling No -Undermining/Tunneling Yes -Undermining/Tunneling Starts (O' 8 clock) -Undermining/Tunneling Ends (O'clock) 5 -Maximum Distance (cm) 2 -Circular Undermining No -Exudate Amt Large -Exudate Type Serosanguineous -Wound Margin Thickened & Rolled Under -Granulation Amt Medium (34-66%) -Granulation Quality Red -Slough/Fibrin Yes -Necrosis Amt Medium (34-66%) -Necrotic Tissue Type Adherent Slough -Texture (Sheyla-wound Skin Appearance) Assessed, Scarring -Moisture (Sheyla-wound Skin Appearance Assessed ) -Color (Sheyla-wound Skin Appearance) Assessed -Temperature (Sheyla-wound Skin No Abnormality Appearance) (Pt Warm) -Tenderness on Palpation (Sheyla-wound No Skin Appearance) -Ulcer Cleansing SOAP AND WATER -Foul Odor after Cleansing No #1 R Buttocks -Combined with other wound No -Current Size (cm) - Length 9.3 -Current Size (cm) - Width 5.8 -Current Size (cm) - Depth 1.1 -Total Square Cm 53.94 -Photo Taken No -Epithelialization None Present -Tunneling No -Undermining/Tunneling Yes -Undermining/Tunneling Starts (O' 12 clock) -Undermining/Tunneling Ends (O'clock) 2 -Maximum Distance (cm) 2.1 -Circular Undermining No -Exudate Amt Small -Exudate Type Serosanguineous -Wound Margin Distinct, Outline Attached -Granulation Amt Large (67-100%) -Granulation Quality Red -Slough/Fibrin Yes -Necrosis Amt Small (1-33%) -Necrotic Tissue Type Adherent Slough -Texture (Sheyla-wound Skin Appearance) Assessed, Scarring -Moisture (Sheyla-wound Skin Appearance Assessed ) -Color (Sheyla-wound Skin Appearance) Assessed -Temperature (Sheyla-wound Skin No Abnormality Appearance) (Pt Warm) -Tenderness on Palpation (Sheyla-wound No Skin Appearance) -Ulcer Cleansing SOAP AND WATER -Foul Odor after Cleansing No WC - Nurse 2 - General Ulcer CM Notes Start: 11/16/18 12:12 Freq: Status: Active Protocol: Activity Type Activity Date Activity User E-Sign Co-Sign Detail Recorded Client Recorded Date Recorded By Document 11/16/18 12:42 MW [id number] 11/16/18 13:01 MW 11/16/18 12:42 Wound Center Nurse 2 [Procedure/Treatment] #4 SACRAL ULCER - SUPERIOR -Time 12:51 -Correct Patient Yes -Correct Side, Site, Position Yes -Correct Procedure Yes -Procedure Performed Yes -Type of Procedure Debridement -Clinical Debridement Subcutaneous -Post Debridement Size (cm) - Length 4.0 -Post Debridement Size (cm) - Width 3.0 -Post Debridement Size (cm) - Depth 2.0 -Total Square Cm 12.00 -Wound/Ulcer Outcome Not Healed -Ulcer Cleansing Rinsed/ Irrigated with Saline -Foul Odor after Cleansing No -Bioengineered Tissue No -Bleeding Controlled with Pressure -Other UNDERMINING 10- 5, @2 -2.0CM , @12 -2.5CM -Offloading No -Treatment Response Procedure Tolerated Well #3 L Buttucks -Time 12:45 -Correct Patient Yes -Correct Side, Site, Position Yes -Correct Procedure Yes -Procedure Performed Yes -Type of Procedure Debridement -Clinical Debridement Subcutaneous -Post Debridement Size (cm) - Length 7.5 -Post Debridement Size (cm) - Width 6.0 -Post Debridement Size (cm) - Depth 2.0 -Total Square Cm 45.00 -Wound/Ulcer Outcome Not Healed -Ulcer Cleansing Rinsed/ Irrigated with Saline -Foul Odor after Cleansing No -Bioengineered Tissue No -Bleeding Controlled with Pressure -Offloading No -Treatment Response Procedure Tolerated Well #2 Sacral Cluster -Time 12:45 -Correct Patient Yes -Correct Side, Site, Position Yes -Correct Procedure Yes -Procedure Performed Yes -Type of Procedure Debridement -Clinical Debridement Subcutaneous -Post Debridement Size (cm) - Length 7.5 -Post Debridement Size (cm) - Width 11.0 -Post Debridement Size (cm) - Depth 3.0 -Total Square Cm 82.50 -Wound/Ulcer Outcome Not Healed -Foul Odor after Cleansing No -Bioengineered Tissue No -Bleeding Controlled with Pressure -Offloading No -Treatment Response Procedure Tolerated Well #1 R Buttocks -Time 12:46 -Correct Patient Yes -Correct Side, Site, Position Yes -Correct Procedure Yes -Procedure Performed Yes -Type of Procedure Debridement -Clinical Debridement Subcutaneous -Post Debridement Size (cm) - Length 7.0 -Post Debridement Size (cm) - Width 5.0 -Post Debridement Size (cm) - Depth 3.0 -Total Square Cm 35.00 -Wound/Ulcer Outcome Not Healed -Ulcer Cleansing Rinsed/ Irrigated with Saline -Foul Odor after Cleansing No -Bioengineered Tissue No -Bleeding Controlled with Pressure -Offloading No -Treatment Response Procedure Tolerated Well [See Physician Procedure note for Specifics] Pain Scale: 0-10 Numeric [Pain] -Is Patient Pain Free? Yes Musculoskeletal: Muscle Wasting Neurological: Cranial nerves II-XII grossly intact Debridement Note Post-Debridement Measurements/Treatment WC - Nurse 2 - General Ulcer CM Notes Start: 11/16/18 12:12 Freq: Status: Active Protocol: Activity Type Activity Date Activity User E-Sign Co-Sign Detail Recorded Client Recorded Date Recorded By Document 11/16/18 12:42 MW [id number] 11/16/18 13:01 MW 11/16/18 12:42 Wound Center Nurse 2 #4 SACRAL ULCER - SUPERIOR -Time 12:51 -Correct Patient Yes -Correct Side, Site, Position Yes -Correct Procedure Yes -Procedure Performed Yes -Type of Procedure Debridement -Clinical Debridement Subcutaneous -Post Debridement Size (cm) - Length 4.0 -Post Debridement Size (cm) - Width 3.0 -Post Debridement Size (cm) - Depth 2.0 -Total Square Cm 12.00 -Wound/Ulcer Outcome Not Healed -Ulcer Cleansing Rinsed/ Irrigated with Saline -Foul Odor after Cleansing No -Bioengineered Tissue No -Bleeding Controlled with Pressure -Other UNDERMINING 10- 5, @2 -2.0CM , @12 -2.5CM -Offloading No -Treatment Response Procedure Tolerated Well #3 L Buttucks -Time 12:45 -Correct Patient Yes -Correct Side, Site, Position Yes -Correct Procedure Yes -Procedure Performed Yes -Type of Procedure Debridement -Clinical Debridement Subcutaneous -Post Debridement Size (cm) - Length 7.5 -Post Debridement Size (cm) - Width 6.0 -Post Debridement Size (cm) - Depth 2.0 -Total Square Cm 45.00 -Wound/Ulcer Outcome Not Healed -Ulcer Cleansing Rinsed/ Irrigated with Saline -Foul Odor after Cleansing No -Bioengineered Tissue No -Bleeding Controlled with Pressure -Offloading No -Treatment Response Procedure Tolerated Well #2 Sacral Cluster -Time 12:45 -Correct Patient Yes -Correct Side, Site, Position Yes -Correct Procedure Yes -Procedure Performed Yes -Type of Procedure Debridement -Clinical Debridement Subcutaneous -Post Debridement Size (cm) - Length 7.5 -Post Debridement Size (cm) - Width 11.0 -Post Debridement Size (cm) - Depth 3.0 -Total Square Cm 82.50 -Wound/Ulcer Outcome Not Healed -Foul Odor after Cleansing No -Bioengineered Tissue No -Bleeding Controlled with Pressure -Offloading No -Treatment Response Procedure Tolerated Well #1 R Buttocks -Time 12:46 -Correct Patient Yes -Correct Side, Site, Position Yes -Correct Procedure Yes -Procedure Performed Yes -Type of Procedure Debridement -Clinical Debridement Subcutaneous -Post Debridement Size (cm) - Length 7.0 -Post Debridement Size (cm) - Width 5.0 -Post Debridement Size (cm) - Depth 3.0 -Total Square Cm 35.00 -Wound/Ulcer Outcome Not Healed -Ulcer Cleansing Rinsed/ Irrigated with Saline -Foul Odor after Cleansing No -Bioengineered Tissue No -Bleeding Controlled with Pressure -Offloading No -Treatment Response Procedure Tolerated Well Pain Scale: 0-10 Numeric Is Patient Pain Free? Yes Wound debrided: Sacral ( midline ) Wound Grade/Stage: Stage IV Type of Debridement: Excisional debridement Anesthesia Used: 4% Lidocaine Solution Depth: Down to and including healthy tissue, in the subcutaneous layer Percentage of wound debrided: 100 Instrument Used: 7mm curette, #15 blade, Forceps Tissue Removed: Slough and devitalized tissue Severity: Fat Layer Exposed Amount of bleeding with debridement: Moderate Bleeding Controlled with: Pressure Patient tolerated procedure well - Additional Wound Wound debrided: Sacral ( Right sided ) Wound Grade/Stage: Stage IV Type of Debridement: Excisional debridement Anesthesia Used: 4% Lidocaine Solution Depth: Down to and including healthy tissue, in the subcutaneous layer Percentage of wound debrided: 100 Instrument Used: 7mm curette, #15 blade, Forceps Tissue Removed: SLough and devitalized tissue Severity: Fat Layer Exposed Amount of bleeding with debridement: Mild Bleeding Controlled with: Pressure Patient tolerated procedure: Patient tolerated procedure well - Additional Wound Wound debrided: Right buttock Wound Grade/Stage: Stage III Type of Debridement: Excisional debridement Anesthesia Used: 4% Lidocaine Solution Depth: Down to and including healthy tissue, in the subcutaneous layer Percentage of wound debrided: 100 Instrument Used: 7mm curette Tissue Removed: Slough and devitalized tissue Severity: Fat Layer Exposed Amount of bleeding with debridement: Mild Bleeding Controlled with: Pressure Patient tolerated procedure: Patient tolerated procedure well - Additional Wound Wound debrided: Left Buttock Wound Grade/Stage: Stage III Type of Debridement: Excisional debridement Anesthesia Used: 4% Lidocaine Solution Depth: Down to and including healthy tissue, in the subcutaneous layer Percentage of wound debrided: 100 Instrument Used: 7mm curette Tissue Removed: Slough and devitalized tissue Severity: Fat Layer Exposed Amount of bleeding with debridement: Mild Bleeding Controlled with: Pressure Patient tolerated procedure: Patient tolerated procedure well Assessment/Plan Active Problems Sacral decubitus ulcer, stage IV (Chronic) Decubitus ulcer of right buttock, stage 4 (Chronic) Decubitus ulcer of left buttock, stage 4 (Chronic) Chronic osteomyelitis involving pelvic region and thigh (Chronic) Paraplegia (Chronic) Assessment: Same as above. Plan: Mr. Joyce does not look well today. Lethargic, foul smelling decubitus ulcer with worsenng ulcer, drainage and slough. Patient was advised to go to the ER but he declined. Debridement done as documented above, procedure was well tolerated. Worsening undermining and increased slough noted. Cultures taken. Spoke with his who states that he has had a change in his Mental status/ lethargy over the last cople of days. She also states he has an appointment at the [facility] in the morning for a Broncoscopy. They would consider [facility] stay / work up at that time. For now, due to concerns for infected ulcers, will switch dressing to acetic acid BID. Vac holiday and reassses in 1 week. Due to his chronic osteomyeliis Carlos Manuel will be a good candidate for HBO therapy. Cont inue optimal dietary and protein intake. Offloading also recommended. His questions were answered and they were advised to call with any further questions or concerns. Follow up in 1 week.
[2018-11-22 11:43] VITALS: BP 86/44; PULSE 105; RESP 18; TEMP 36.6; BMI 21.8
[2018-11-22 11:56] VITALS: BMI 21.8
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
--- NOTE | 2018-11-22 18:02 | PN.PCM_ITS ---
(1) Chronic osteomyelitis involving pelvic region and thigh Status: Chronic Current Visit: Yes Code(s): M86.659 - Other chronic osteomyelitis, unspecified thigh (2) Decubitus ulcer of left buttock, stage 4 Status: Chronic Current Visit: Yes Code(s): L89.324 - Pressure ulcer of left buttock, stage 4 (3) Decubitus ulcer of right buttock, stage 4 Status: Chronic Current Visit: Yes Code(s): L89.314 - Pressure ulcer of right buttock, stage 4 (4) Paraplegia Status: Chronic Current Visit: Yes Code(s): G82.20 - Paraplegia, unspecified (5) Sacral decubitus ulcer, stage IV Status: Chronic Current Visit: Yes Code(s): L89.154 - Pressure ulcer of sacral region, stage 4 Type of Wound Date of Service: 11/22/18 Chief Complaint: Non healing decubitus ulcers. History of Wound: Mr. Joyce is a 33yo who presents to the wound center for management of his chronic decubitus ulcers. Initial sacral ulcer was said to have started in November and Buttock ulcers were noted subsequently. He has had an extensive hospital stay over the last couple of months following a work related injury. Both during his hopsital and long-term stays, he had wound care ranging from surgical debridement, wound vac and collagen use. He was aura eduled to be restarted on his wound Vac prior to his discharge from the [place]. He reports significant drainage from the wounds. Also of note is a history of osteomyelitis for which he was on a 6 week IV antibiotic. His however states they were informed that he had developed chronic extensive pelvic area osteomyelitis. He feels well otherwise at this time and denies chills, fever,nausea, vomitting or change in bowel habit. Progress of Wound: Started acetic acid dressing. No concerns. Foul smell improved. Drainage also improved. Cultures reviewed. Appreciate ID input. They deny any concerns at this time. - Physical Exam Vital Signs Temp Pulse Resp BP 98 F 105 H 18 86/44 L 11/22/18 11:43 11/22/18 11:43 11/22/18 11:43 11/22/18 11:43 General: Alert, Oriented x3, Cooperative, No apparent distress HEENT: Atraumatic, Normocephalic Oral: Moist Mucosa Neck: Supple Lungs: Normal air movement Extremities: No cyanosis Skin: Ulcer/ Wound Wound Measurements and Assessment WC - Nurse 1 - General Ulcer Measurement Start: 11/16/18 12:12 Freq: Status: Active Protocol: Activity Type Activity Date Activity User E-Sign Co-Sign Detail Recorded Client Recorded Date Recorded By Document 11/22/18 12:02 RB [id number] 11/22/18 12:03 RB Document 11/22/18 13:06 [id number] 11/22/18 13:16 11/22/18 11/22/18 12:02 13:06 Wound Center Nurse 1 [Ulcer Assessment] #4 SACRAL ULCER - SUPERIOR -Combined with other wound No No -Current Size (cm) - Length 5 5 -Current Size (cm) - Width 4 4 -Current Size (cm) - Depth 1.5 1.5 -Total Square Cm 20 20 -Photo Taken No No -Epithelialization None Present None Present -Tunneling No -Undermining/Tunneling Yes Yes -Undermining/Tunneling Starts (O' 12 12 clock) -Undermining/Tunneling Ends (O'clock) 3 3 -Maximum Distance (cm) 2.6 2.6 -Circular Undermining No No -Classification - Thickness Full Thickness Full Thickness with Exposed without Exposed Support Support Structure Structure -Classification - Pressure Ulcer Stage 4 Stage 3 -Exudate Amt Large Large -Exudate Type Serosanguineous Serosanguineous -Wound Margin Well Defined, Well Defined, Not Attached Not Attached -Granulation Amt None Present (0 None Present (0 %) %) -Granulation Quality N/A N/A -Slough/Fibrin Yes Yes -Necrosis Amt Large (67-100%) Small (1-33%) -Necrotic Tissue Type Adherent Slough Adherent Slough -Structure Exposed Tendon Fat Layer Exposed -Moisture (Sheyla-wound Skin Appearance No Abnormality, ) Assessed -Color (Sheyla-wound Skin Appearance) No Abnormality, Assessed,Palor -Temperature (Sheyla-wound Skin No Abnormality Appearance) (Pt Warm) -Tenderness on Palpation (Sheyla-wound Yes Skin Appearance) -Foul Odor after Cleansing No #3 L Buttucks -Combined with other wound No -Current Size (cm) - Length 9.6 -Current Size (cm) - Width 6.5 -Current Size (cm) - Depth 3.2 -Total Square Cm 62.40 -Photo Taken No -Epithelialization None Present -Tunneling No -Undermining/Tunneling No -Circular Undermining No -Classification - Thickness Full Thickness without Exposed Support Structure -Classification - Pressure Ulcer Stage 4 -Change in Wound Grade/Stage No Query Text:If change please identify the Stage/Grade in the comment (ie. S2 G3) -Exudate Amt Large -Exudate Type Serosanguineous -Wound Margin Distinct, Outline Attached -Granulation Amt None Present (0 %) -Granulation Quality N/A -Slough/Fibrin Yes -Necrosis Amt Small (1-33%) -Necrotic Tissue Type Adherent Slough -Structure Exposed Bone -Texture (Sheyla-wound Skin Appearance) No Abnormality, Assessed -Moisture (Sheyla-wound Skin Appearance No Abnormality, ) Assessed -Color (Sheyla-wound Skin Appearance) Assessed,Palor -Temperature (Sheyla-wound Skin No Abnormality Appearance) (Pt Warm) -Tenderness on Palpation (Sheyla-wound Yes Skin Appearance) -Foul Odor after Cleansing No #2 Sacral Cluster -Combined with other wound No -Current Size (cm) - Length 8 -Current Size (cm) - Width 13 -Current Size (cm) - Depth 3.5 -Total Square Cm 104 -Photo Taken No -Epithelialization None Present -Tunneling No -Undermining/Tunneling Yes -Undermining/Tunneling Starts (O' 7 clock) -Undermining/Tunneling Ends (O'clock) 5 -Maximum Distance (cm) 3.5 -Circular Undermining No -Classification - Thickness Full Thickness without Exposed Support Structure -Classification - Pressure Ulcer Stage 4 -Exudate Amt Large -Exudate Type Serosanguineous -Wound Margin Well Defined, Not Attached -Granulation Amt None Present (0 %) -Granulation Quality N/A -Slough/Fibrin Yes -Necrosis Amt Medium (34-66%) -Structure Exposed Bone -Texture (Sheyla-wound Skin Appearance) No Abnormality, Assessed -Moisture (Sheyla-wound Skin Appearance No Abnormality, ) Assessed -Color (Sheyla-wound Skin Appearance) Assessed,Palor -Temperature (Sheyla-wound Skin No Abnormality Appearance) (Pt Warm) -Tenderness on Palpation (Sheyla-wound Yes Skin Appearance) -Foul Odor after Cleansing No #1 R Buttocks -Combined with other wound No -Current Size (cm) - Length 10 -Current Size (cm) - Width 6 -Current Size (cm) - Depth 2 -Total Square Cm 60 -Photo Taken No -Epithelialization None Present -Undermining/Tunneling Yes -Undermining/Tunneling Starts (O' 12 clock) -Undermining/Tunneling Ends (O'clock) 3 -Maximum Distance (cm) 2.5 -Circular Undermining No -Classification - Thickness Full Thickness without Exposed Support Structure -Classification - Pressure Ulcer Stage 3 -Exudate Amt Large -Exudate Type Serosanguineous -Wound Margin Well Defined, Not Attached -Granulation Amt None Present (0 %) -Granulation Quality N/A -Slough/Fibrin Yes -Necrosis Amt Small (1-33%) -Necrotic Tissue Type Adherent Slough -Structure Exposed Fat Layer Exposed -Texture (Sheyla-wound Skin Appearance) No Abnormality, Assessed -Moisture (Sheyla-wound Skin Appearance No Abnormality, ) Assessed -Color (Sheyla-wound Skin Appearance) Assessed,Palor -Temperature (Sehyla-wound Skin No Abnormality Appearance) (Pt Warm) -Tenderness on Palpation (Sheyla-wound Yes Skin Appearance) -Foul Odor after Cleansing No [Edema Assessment] -Lower Limb Edema Present NA WC - Nurse 2 - General Ulcer CM Notes Start: 11/16/18 12:12 Freq: Status: Active Protocol: Activity Type Activity Date Activity User E-Sign Co-Sign Detail Recorded Client Recorded Date Recorded By Document 11/22/18 12:18 MW [id number] 11/22/18 12:36 MW 11/22/18 12:18 Wound Center Nurse 2 [Procedure/Treatment] #4 SACRAL ULCER - SUPERIOR -Time 12:18 -Correct Patient Yes -Correct Side, Site, Position Yes -Correct Procedure Yes -Procedure Performed Yes -Type of Procedure Debridement -Clinical Debridement Subcutaneous -Post Debridement Size (cm) - Length 5.0 -Post Debridement Size (cm) - Width 2.5 -Post Debridement Size (cm) - Depth 2.0 -Total Square Cm 12.50 -Wound/Ulcer Outcome Not Healed -Ulcer Cleansing Rinsed/ Irrigated with Saline -Foul Odor after Cleansing No -Bioengineered Tissue No -Bleeding Controlled with Pressure -Offloading No -Treatment Response Procedure Tolerated Well #3 L Buttucks -Time 12:18 -Correct Patient Yes -Correct Side, Site, Position Yes -Correct Procedure Yes -Procedure Performed Yes -Type of Procedure Debridement -Clinical Debridement Subcutaneous -Post Debridement Size (cm) - Length 9.5 -Post Debridement Size (cm) - Width 7.5 -Post Debridement Size (cm) - Depth 2.3 -Total Square Cm 71.25 -Wound/Ulcer Outcome Not Healed -Ulcer Cleansing Rinsed/ Irrigated with Saline -Foul Odor after Cleansing No -Bioengineered Tissue No -Bleeding Controlled with Pressure -Offloading No -Treatment Response Procedure Tolerated Well #2 Sacral Cluster -Time 12:18 -Correct Patient Yes -Correct Side, Site, Position Yes -Correct Procedure Yes -Procedure Performed Yes -Type of Procedure Debridement -Clinical Debridement Subcutaneous -Post Debridement Size (cm) - Length 7.0 -Post Debridement Size (cm) - Width 12.5 -Post Debridement Size (cm) - Depth 3.0 -Total Square Cm 87.50 -Wound/Ulcer Outcome Not Healed -Ulcer Cleansing Rinsed/ Irrigated with Saline -Foul Odor after Cleansing No -Bioengineered Tissue No -Bleeding Controlled with Pressure -Offloading No -Treatment Response Procedure Tolerated Well #1 R Buttocks -Time 12:18 -Correct Patient Yes -Correct Side, Site, Position Yes -Correct Procedure Yes -Procedure Performed Yes -Type of Procedure Debridement -Clinical Debridement Subcutaneous -Post Debridement Size (cm) - Length 9.5 -Post Debridement Size (cm) - Width 5.0 -Post Debridement Size (cm) - Depth 1.8 -Total Square Cm 47.50 -Wound/Ulcer Outcome Not Healed -Ulcer Cleansing Rinsed/ Irrigated with Saline -Foul Odor after Cleansing No -Bioengineered Tissue No -Bleeding Controlled with Pressure -Offloading No -Treatment Response Procedure Tolerated Well [See Physician Procedure note for Specifics] Pain Scale: 0-10 Numeric [Pain] -Is Patient Pain Free? Yes Neurological: Cranial nerves II-XII grossly intact Psych/Mental Status: Normal Affect Debridement Note Post-Debridement Measurements/Treatment WC - Nurse 2 - General Ulcer CM Notes Start: 11/16/18 12:12 Freq: Status: Active Protocol: Activity Type Activity Date Activity User E-Sign Co-Sign Detail Recorded Client Recorded Date Recorded By Document 11/16/18 12:42 MW [id number] 11/16/18 13:01 MW Document 11/22/18 12:18 MW [id number] 11/22/18 12:36 MW 11/16/18 11/22/18 12:42 12:18 Wound Center Nurse 2 #4 SACRAL ULCER - SUPERIOR -Time 12:51 12:18 -Correct Patient Yes Yes -Correct Side, Site, Position Yes Yes -Correct Procedure Yes Yes -Procedure Performed Yes Yes -Type of Procedure Debridement Debridement -Clinical Debridement Subcutaneous Subcutaneous -Post Debridement Size (cm) - Length 4.0 5.0 -Post Debridement Size (cm) - Width 3.0 2.5 -Post Debridement Size (cm) - Depth 2.0 2.0 -Total Square Cm 12.00 12.50 -Wound/Ulcer Outcome Not Healed Not Healed -Ulcer Cleansing Rinsed/ Rinsed/ Irrigated with Irrigated with Saline Saline -Foul Odor after Cleansing No No -Bioengineered Tissue No No -Bleeding Controlled with Pressure Pressure -Other UNDERMINING 10- 5, @2 -2.0CM , @12 -2.5CM -Offloading No No -Treatment Response Procedure Procedure Tolerated Well Tolerated Well #3 L Buttucks -Time 12:45 12:18 -Correct Patient Yes Yes -Correct Side, Site, Position Yes Yes -Correct Procedure Yes Yes -Procedure Performed Yes Yes -Type of Procedure Debridement Debridement -Clinical Debridement Subcutaneous Subcutaneous -Post Debridement Size (cm) - Length 7.5 9.5 -Post Debridement Size (cm) - Width 6.0 7.5 -Post Debridement Size (cm) - Depth 2.0 2.3 -Total Square Cm 45.00 71.25 -Wound/Ulcer Outcome Not Healed Not Healed -Ulcer Cleansing Rinsed/ Rinsed/ Irrigated with Irrigated with Saline Saline -Foul Odor after Cleansing No No -Bioengineered Tissue No No -Bleeding Controlled with Pressure Pressure -Offloading No No -Treatment Response Procedure Procedure Tolerated Well Tolerated Well #2 Sacral Cluster -Time 12:45 12:18 -Correct Patient Yes Yes -Correct Side, Site, Position Yes Yes -Correct Procedure Yes Yes -Procedure Performed Yes Yes -Type of Procedure Debridement Debridement -Clinical Debridement Subcutaneous Subcutaneous -Post Debridement Size (cm) - Length 7.5 7.0 -Post Debridement Size (cm) - Width 11.0 12.5 -Post Debridement Size (cm) - Depth 3.0 3.0 -Total Square Cm 82.50 87.50 -Wound/Ulcer Outcome Not Healed Not Healed -Ulcer Cleansing Rinsed/ Irrigated with Saline -Foul Odor after Cleansing No No -Bioengineered Tissue No No -Bleeding Controlled with Pressure Pressure -Offloading No No -Treatment Response Procedure Procedure Tolerated Well Tolerated Well #1 R Buttocks -Time 12:46 12:18 -Correct Patient Yes Yes -Correct Side, Site, Position Yes Yes -Correct Procedure Yes Yes -Procedure Performed Yes Yes -Type of Procedure Debridement Debridement -Clinical Debridement Subcutaneous Subcutaneous -Post Debridement Size (cm) - Length 7.0 9.5 -Post Debridement Size (cm) - Width 5.0 5.0 -Post Debridement Size (cm) - Depth 3.0 1.8 -Total Square Cm 35.00 47.50 -Wound/Ulcer Outcome Not Healed Not Healed -Ulcer Cleansing Rinsed/ Rinsed/ Irrigated with Irrigated with Saline Saline -Foul Odor after Cleansing No No -Bioengineered Tissue No No -Bleeding Controlled with Pressure Pressure -Offloading No No -Treatment Response Procedure Procedure Tolerated Well Tolerated Well Pain Scale: 0-10 Numeric Is Patient Pain Free? Yes Yes Wound debrided: Midline sacral Wound Grade/Stage: Stage IV Type of Debridement: Excisional debridement Anesthesia Used: 4% Lidocaine Solution Depth: Down to and including healthy tissue, in the subcutaneous layer Percentage of wound debrided: 100 Instrument Used: 7mm curette, #15 blade, Forceps Tissue Removed: Slough and devitalized tissue Severity: Fat Layer Exposed Amount of bleeding with debridement: Mild Bleeding Controlled with: Pressure Patient tolerated procedure well - Additional Wound Wound debrided: Right-sided sacral Wound Grade/Stage: Stage IV Type of Debridement: Excisional debridement Depth: Down to and including healthy tissue Percentage of wound debrided: 100 Instrument Used: 7mm curette, #15 blade, Forceps Tissue Removed: Slough and devitalized tissue Severity: Fat Layer Exposed Amount of bleeding with debridement: Mild Bleeding Controlled with: Pressure Patient tolerated procedure: Patient tolerated procedure well - Additional Wound Wound debrided: Left buttock Wound Grade/Stage: Stage III Type of Debridement: Excisional debridement Anesthesia Used: 4% Lidocaine Solution Depth: Down to and including healthy tissue, in the subcutaneous layer Percentage of wound debrided: 100 Instrument Used: 7mm curette Tissue Removed: Slough and devitalized tissue Severity: Fat Layer Exposed Amount of bleeding with debridement: Mild Bleeding Controlled with: Pressure Patient tolerated procedure: Patient tolerated procedure well - Additional Wound Wound debrided: Right buttock Wound Grade/Stage: Stage III Type of Debridement: Excisional debridement Anesthesia Used: 4% Lidocaine Solution Depth: Down to and including healthy tissue, in the subcutaneous layer Percentage of wound debrided: 100 Instrument Used: 7mm curette Tissue Removed: Slough and devitalized tissue Severity: Fat Layer Exposed Amount of bleeding with debridement: Mild Bleeding Controlled with: Pressure Patient tolerated procedure: Patient tolerated procedure well Assessment/Plan Active Problems Sacral decubitus ulcer, stage IV (Chronic) Decubitus ulcer of right buttock, stage 4 (Chronic) Decubitus ulcer of left buttock, stage 4 (Chronic) Chronic osteomyelitis involving pelvic region and thigh (Chronic) Paraplegia (Chronic) Assessment: Same as above. Plan: Mr. Joyce looks better today. Not lethargic. Slough and foul smell have both improved. Debridement done as documented above, procedure was well tolerated. Left decubitus ulcer tunnels to sacral. Cultures reviewed. Appreciate ID improved. Continue acetic acid BID. DC VAC for now due to his chronic osteomyeliis Carlos Manuel will be a good candidate for HBO therapy however, due to his ongoing lung/respiratory issues, will hold off HBO assessment for now. Continue optimal dietary and protein intake. Offloading also recommended. His questions were answered and they were advised to call with any further questions or concerns. Follow up in 1 week.
[2018-11-30 12:34] VITALS: BP 99/63; PULSE 94; RESP 16; TEMP 36.6; BMI 21.8
--- NOTE | 2018-11-30 14:29 | PCM.WC.PN ---
(1) Chronic osteomyelitis involving pelvic region and thigh Status: Chronic Current Visit: Yes Code(s): M86.659 - Other chronic osteomyelitis, unspecified thigh (2) Decubitus ulcer of left buttock, stage 4 Status: Chronic Current Visit: Yes Code(s): L89.324 - Pressure ulcer of left buttock, stage 4 (3) Decubitus ulcer of right buttock, stage 4 Status: Chronic Current Visit: Yes Code(s): L89.314 - Pressure ulcer of right buttock, stage 4 (4) Paraplegia Status: Chronic Current Visit: Yes Code(s): G82.20 - Paraplegia, unspecified (5) Sacral decubitus ulcer, stage IV Status: Chronic Current Visit: Yes Code(s): L89.154 - Pressure ulcer of sacral region, stage 4 Type of Wound Date of Service: 11/30/18 Chief Complaint: Non healing decubitus ulcers. History of Wound: Mr. Joyce is a 33yo who presents to the wound center for management of his chronic decubitus ulcers. Initial sacral ulcer was said to have started in November and Buttock ulcers were noted subsequently. He has had an extensive hospital stay over the last couple of months following a work related injury. Both during his hopsital and group home stays, he had wound care ranging from surgical debridement, wound vac and collagen use. He was scheduled to be restarted on his wound Vac prior to his discharge from the [place]. He reports significant drainage from the wounds. Also of note is a history of osteomyelitis for which he was on a 6 week IV antibiotic. His however states they were informed that he had developed chronic extensive pelvic area osteomyelitis. He feels well otherwise at this time and denies chills, fever,nausea, vomitting or change in bowel habit. Progress of Wound: Recent hospital admission for MRSA pneumonia. Per his , coded during and Tuesday. Currently on Zyvox. No new concerns. - Physical Exam Vital Signs Temp Pulse Resp BP 97.8 F 94 16 99/63 11/30/18 12:34 11/30/18 12:34 11/30/18 12:34 11/30/18 12:34 General: Alert, Oriented x3, Cooperative, No apparent distress HEENT: Atraumatic, Normocephalic Oral: Moist Mucosa Neck: Supple Lungs: Normal air movement Extremities: No cyanosis Skin: Ulcer/ Wound Wound Measurements and Assessment WC - Nurse 1 - General Ulcer Measurement Start: 11/16/18 12:12 Freq: Status: Active Protocol: Activity Type Activity Date Activity User E-Sign Co-Sign Detail Recorded Client Recorded Date Recorded By Document 11/30/18 12:34 PELON [id number] 11/30/18 12:49 PELON 11/30/18 12:34 Wound Center Nurse 1 [Ulcer Assessment] #4 SACRAL ULCER - SUPERIOR -Combined with other wound No -Current Size (cm) - Length 4.5 -Current Size (cm) - Width 2.8 -Current Size (cm) - Depth 1.8 -Total Square Cm 12.60 -Photo Taken No -Epithelialization None Present -Tunneling No -Undermining/Tunneling Yes -Undermining/Tunneling Starts (O' 11 clock) -Undermining/Tunneling Ends (O'clock) 2 -Maximum Distance (cm) 3.6 -Exudate Amt Large -Exudate Type Serosanguineous -Wound Margin Distinct, Outline Attached -Granulation Amt Large (67-100%) -Granulation Quality Red -Slough/Fibrin Yes -Necrosis Amt Small (1-33%) -Necrotic Tissue Type Adherent Slough -Texture (Sheyla-wound Skin Appearance) Assessed, Scarring -Moisture (Sheyla-wound Skin Appearance Assessed ) -Color (Sheyla-wound Skin Appearance) Assessed, Erythema -Temperature (Sheyla-wound Skin No Abnormality Appearance) (Pt Warm) -Tenderness on Palpation (Sheyla-wound No Skin Appearance) -Ulcer Cleansing soap and water -Foul Odor after Cleansing No #3 L Buttucks -Combined with other wound No -Current Size (cm) - Length 10 -Current Size (cm) - Width 6 -Current Size (cm) - Depth 3.2 -Total Square Cm 60 -Photo Taken No -Epithelialization None Present -Tunneling No -Undermining/Tunneling Yes -Undermining/Tunneling Starts (O' 11 clock) -Undermining/Tunneling Ends (O'clock) 1 -Maximum Distance (cm) 5 -Circular Undermining No -Exudate Amt Large -Exudate Type Serosanguineous -Wound Margin Distinct, Outline Attached -Granulation Amt Large (67-100%) -Granulation Quality Red -Texture (Sheyla-wound Skin Appearance) Assessed, Scarring -Moisture (Sheyla-wound Skin Appearance Assessed ) -Color (Sheyla-wound Skin Appearance) Assessed, Erythema -Temperature (Sheyla-wound Skin No Abnormality Appearance) (Pt Warm) -Tenderness on Palpation (Sheyla-wound No Skin Appearance) -Ulcer Cleansing soap and water -Foul Odor after Cleansing No #2 Sacral Cluster -Combined with other wound No -Current Size (cm) - Length 9.6 -Current Size (cm) - Width 12 -Current Size (cm) - Depth 2.6 -Total Square Cm 115.2 -Photo Taken No -Epithelialization None Present -Tunneling No -Undermining/Tunneling Yes -Undermining/Tunneling Starts (O' 11 clock) -Undermining/Tunneling Ends (O'clock) 2 -Maximum Distance (cm) 3 -Circular Undermining No -Exudate Amt Large -Exudate Type Serosanguineous -Granulation Amt Large (67-100%) -Granulation Quality Red -Slough/Fibrin Yes -Necrosis Amt Small (1-33%) -Necrotic Tissue Type Adherent Slough -Structure Exposed Bone -Texture (Sheyla-wound Skin Appearance) Assessed, Scarring -Moisture (Sheyla-wound Skin Appearance Assessed ) -Color (Sheyla-wound Skin Appearance) Assessed, Erythema -Temperature (Sheyla-wound Skin No Abnormality Appearance) (Pt Warm) -Tenderness on Palpation (Sheyla-wound No Skin Appearance) -Ulcer Cleansing soap and water -Foul Odor after Cleansing No #1 R Buttocks -Combined with other wound No -Current Size (cm) - Length 10 -Current Size (cm) - Width 5.4 -Current Size (cm) - Depth 2.2 -Total Square Cm 54.0 -Photo Taken No -Epithelialization None Present -Tunneling No -Undermining/Tunneling Yes -Undermining/Tunneling Starts (O' 12 clock) -Undermining/Tunneling Ends (O'clock) 2 -Maximum Distance (cm) 2.4 -Circular Undermining No -Exudate Amt Large -Exudate Type Serosanguineous -Wound Margin Distinct, Outline Attached -Granulation Amt Large (67-100%) -Granulation Quality Red -Slough/Fibrin Yes -Necrosis Amt Small (1-33%) -Necrotic Tissue Type Adherent Slough -Texture (Sheyla-wound Skin Appearance) Assessed, Scarring -Moisture (Sheyla-wound Skin Appearance Assessed ) -Color (Sheyla-wound Skin Appearance) Erythema -Temperature (Sheyla-wound Skin No Abnormality Appearance) (Pt Warm) -Tenderness on Palpation (Sheyla-wound No Skin Appearance) -Ulcer Cleansing soap and water -Foul Odor after Cleansing No WC - Nurse 2 - General Ulcer CM Notes Start: 11/16/18 12:12 Freq: Status: Active Protocol: Activity Type Activity Date Activity User E-Sign Co-Sign Detail Recorded Client Recorded Date Recorded By Document 11/30/18 12:59 MW [id number] 11/30/18 13:16 MW 11/30/18 12:59 Wound Center Nurse 2 [Procedure/Treatment] #4 SACRAL ULCER - SUPERIOR -Time 13:01 -Correct Patient Yes -Correct Side, Site, Position Yes -Correct Procedure Yes -Procedure Performed Yes -Type of Procedure Debridement -Clinical Debridement Subcutaneous -Post Debridement Size (cm) - Length 3.0 -Post Debridement Size (cm) - Width 4.5 -Post Debridement Size (cm) - Depth 2.0 -Total Square Cm 13.50 -Wound/Ulcer Outcome Not Healed -Ulcer Cleansing Rinsed/ Irrigated with Saline -Foul Odor after Cleansing No -Bioengineered Tissue No -Bleeding Controlled with Pressure -Offloading No -Treatment Response Procedure Tolerated Well #3 L Buttucks -Time 13:01 -Correct Patient Yes -Correct Side, Site, Position Yes -Correct Procedure Yes -Procedure Performed Yes -Type of Procedure Debridement -Clinical Debridement Subcutaneous -Post Debridement Size (cm) - Length 8.5 -Post Debridement Size (cm) - Width 5.5 -Post Debridement Size (cm) - Depth 2.0 -Total Square Cm 46.75 -Wound/Ulcer Outcome Not Healed -Ulcer Cleansing Rinsed/ Irrigated with Saline -Foul Odor after Cleansing No -Bioengineered Tissue No -Bleeding Controlled with Pressure -Offloading No -Treatment Response Procedure Tolerated Well #2 Sacral Cluster -Time 13:01 -Correct Patient Yes -Correct Side, Site, Position Yes -Correct Procedure Yes -Procedure Performed Yes -Type of Procedure Debridement -Clinical Debridement Subcutaneous -Post Debridement Size (cm) - Length 8.0 -Post Debridement Size (cm) - Width 12.5 -Post Debridement Size (cm) - Depth 2.5 -Total Square Cm 100.00 -Wound/Ulcer Outcome Not Healed -Ulcer Cleansing Rinsed/ Irrigated with Saline -Foul Odor after Cleansing No -Bioengineered Tissue No -Bleeding Controlled with Pressure -Offloading No -Treatment Response Procedure Tolerated Well #1 R Buttocks -Time 13:03 -Correct Patient Yes -Correct Side, Site, Position Yes -Correct Procedure Yes -Procedure Performed Yes -Type of Procedure Debridement -Clinical Debridement Subcutaneous -Post Debridement Size (cm) - Length 10.0 -Post Debridement Size (cm) - Width 7.5 -Post Debridement Size (cm) - Depth 1.7 -Total Square Cm 75.00 -Wound/Ulcer Outcome Not Healed -Ulcer Cleansing Rinsed/ Irrigated with Saline -Foul Odor after Cleansing No -Bioengineered Tissue No -Bleeding Controlled with Pressure -Offloading No -Treatment Response Procedure Tolerated Well [See Physician Procedure note for Specifics] Pain Scale: 0-10 Numeric [Pain] -Is Patient Pain Free? Yes Neurological: Cranial nerves II-XII grossly intact Psych/Mental Status: Normal Affect Debridement Note Post-Debridement Measurements/Treatment WC - Nurse 2 - General Ulcer CM Notes Start: 11/16/18 12:12 Freq: Status: Active Protocol: Activity Type Activity Date Activity User E-Sign Co-Sign Detail Recorded Client Recorded Date Recorded By Document 11/16/18 12:42 MW [id number] 11/16/18 13:01 MW Document 11/22/18 12:18 MW [id number] 11/22/18 12:36 MW Document 11/30/18 12:59 MW [id number] 11/30/18 13:16 MW 11/16/18 11/22/18 11/30/18 12:42 12:18 12:59 Wound Center Nurse 2 #4 SACRAL ULCER - SUPERIOR -Time 12:51 12:18 13:01 -Correct Patient Yes Yes Yes -Correct Side, Site, Position Yes Yes Yes -Correct Procedure Yes Yes Yes -Procedure Performed Yes Yes Yes -Type of Procedure Debridement Debridement Debridement -Clinical Debridement Subcutaneous Subcutaneous Subcutaneous -Post Debridement Size (cm) - Length 4.0 5.0 3.0 -Post Debridement Size (cm) - Width 3.0 2.5 4.5 -Post Debridement Size (cm) - Depth 2.0 2.0 2.0 -Total Square Cm 12.00 12.50 13.50 -Wound/Ulcer Outcome Not Healed Not Healed Not Healed -Ulcer Cleansing Rinsed/ Rinsed/ Rinsed/ Irrigated with Irrigated with Irrigated with Saline Saline Saline -Foul Odor after Cleansing No No No -Bioengineered Tissue No No No -Bleeding Controlled with Pressure Pressure Pressure -Other UNDERMINING 10- 5, @2 -2.0CM , @12 -2.5CM -Offloading No No No -Treatment Response Procedure Procedure Procedure Tolerated Well Tolerated Well Tolerated Well #3 L Buttucks -Time 12:45 12:18 13:01 -Correct Patient Yes Yes Yes -Correct Side, Site, Position Yes Yes Yes -Correct Procedure Yes Yes Yes -Procedure Performed Yes Yes Yes -Type of Procedure Debridement Debridement Debridement -Clinical Debridement Subcutaneous Subcutaneous Subcutaneous -Post Debridement Size (cm) - Length 7.5 9.5 8.5 -Post Debridement Size (cm) - Width 6.0 7.5 5.5 -Post Debridement Size (cm) - Depth 2.0 2.3 2.0 -Total Square Cm 45.00 71.25 46.75 -Wound/Ulcer Outcome Not Healed Not Healed Not Healed -Ulcer Cleansing Rinsed/ Rinsed/ Rinsed/ Irrigated with Irrigated with Irrigated with Saline Saline Saline -Foul Odor after Cleansing No No No -Bioengineered Tissue No No No -Bleeding Controlled with Pressure Pressure Pressure -Offloading No No No -Treatment Response Procedure Procedure Procedure Tolerated Well Tolerated Well Tolerated Well #2 Sacral Cluster -Time 12:45 12:18 13:01 -Correct Patient Yes Yes Yes -Correct Side, Site, Position Yes Yes Yes -Correct Procedure Yes Yes Yes -Procedure Performed Yes Yes Yes -Type of Procedure Debridement Debridement Debridement -Clinical Debridement Subcutaneous Subcutaneous Subcutaneous -Post Debridement Size (cm) - Length 7.5 7.0 8.0 -Post Debridement Size (cm) - Width 11.0 12.5 12.5 -Post Debridement Size (cm) - Depth 3.0 3.0 2.5 -Total Square Cm 82.50 87.50 100.00 -Wound/Ulcer Outcome Not Healed Not Healed Not Healed -Ulcer Cleansing Rinsed/ Rinsed/ Irrigated with Irrigated with Saline Saline -Foul Odor after Cleansing No No No -Bioengineered Tissue No No No -Bleeding Controlled with Pressure Pressure Pressure -Offloading No No No -Treatment Response Procedure Procedure Procedure Tolerated Well Tolerated Well Tolerated Well #1 R Buttocks -Time 12:46 12:18 13:03 -Correct Patient Yes Yes Yes -Correct Side, Site, Position Yes Yes Yes -Correct Procedure Yes Yes Yes -Procedure Performed Yes Yes Yes -Type of Procedure Debridement Debridement Debridement -Clinical Debridement Subcutaneous Subcutaneous Subcutaneous -Post Debridement Size (cm) - Length 7.0 9.5 10.0 -Post Debridement Size (cm) - Width 5.0 5.0 7.5 -Post Debridement Size (cm) - Depth 3.0 1.8 1.7 -Total Square Cm 35.00 47.50 75.00 -Wound/Ulcer Outcome Not Healed Not Healed Not Healed -Ulcer Cleansing Rinsed/ Rinsed/ Rinsed/ Irrigated with Irrigated with Irrigated with Saline Saline Saline -Foul Odor after Cleansing No No No -Bioengineered Tissue No No No -Bleeding Controlled with Pressure Pressure Pressure -Offloading No No No -Treatment Response Procedure Procedure Procedure Tolerated Well Tolerated Well Tolerated Well Pain Scale: 0-10 Numeric Is Patient Pain Free? Yes Yes Yes Wound debrided: Sacral Wound Grade/Stage: Stage IV Type of Debridement: Excisional debridement Anesthesia Used: 4% Lidocaine Solution Depth: Down to and including healthy tissue, in the subcutaneous layer Percentage of wound debrided: 100 Instrument Used: 7mm curette Tissue Removed: Slough and devitalized tissue Severity: Fat Layer Exposed Amount of bleeding with debridement: Mild Bleeding Controlled with: Pressure Patient tolerated procedure well - Additional Wound Wound debrided: Right sacral (upper) Wound Grade/Stage: Stage 3 Type of Debridement: Excisional debridement Anesthesia Used: 4% Lidocaine Solution Depth: Down to and including healthy tissue, in the subcutaneous layer Percentage of wound debrided: 100 Instrument Used: 7mm curette, #15 blade, Forceps Tissue Removed: Slough and devitalized tissue Severity: Fat Layer Exposed Amount of bleeding with debridement: Mild Bleeding Controlled with: Pressure Patient tolerated procedure: Patient tolerated procedure well - Additional Wound Wound debrided: Right buttock Wound Grade/Stage: Stage III Type of Debridement: Excisional debridement Anesthesia Used: 4% Lidocaine Solution Depth: Down to and including healthy tissue, in the subcutaneous layer Percentage of wound debrided: 100 Instrument Used: 7mm curette Tissue Removed: Slough and devitalized tissue Severity: Fat Layer Exposed Amount of bleeding with debridement: Mild Bleeding Controlled with: Pressure Patient tolerated procedure: Patient tolerated procedure well - Additional Wound Wound debrided: Left buttock Wound Grade/Stage: Stage III Type of Debridement: Excisional debridement Anesthesia Used: 4% Lidocaine Solution Depth: Down to and including healthy tissue, in the subcutaneous layer Instrument Used: 7mm curette, #15 blade, Forceps Tissue Removed: Slough and devitalized tissue Severity: Fat Layer Exposed Amount of bleeding with debridement: Mild Bleeding Controlled with: Pressure Patient tolerated procedure: Patient tolerated procedure well Assessment/Plan Active Problems Sacral decubitus ulcer, stage IV (Chronic) Decubitus ulcer of right buttock, stage 4 (Chronic) Decubitus ulcer of left buttock, stage 4 (Chronic) Chronic osteomyelitis involving pelvic region and thigh (Chronic) Paraplegia (Chronic) Assessment: Same as above. Plan: Sacral ulcers look stable/well granulated. Right and left buttock doing as well. He appears to have done better with the prior dressing. Debridement done as documented above, procedure well-tolerated. Continue acetic acid BID to sacral ulcers. Acetic acid soak to both buttocks and then calcium alginate/collagen dressing. Due to his chronic osteomyeliis Carlos Manuel will be a good candidate for HBO therapy however, due to his ongoing lung/respiratory issues, will hold off HBO assessment for now. Continue optimal dietary and protein intake. Offloading also recommended. His questions were answered and they were advised to call with any further questions or concerns. Follow up in 1 week.
== END 2018-12-11 23:59 ==
LOC: WC 11:30
PROVIDERS: Family Provider Family Medicine; PCP Family Medicine; Referring Provider Internal Medicine; Visit Provider Internal Medicine
DX: L89.154 Pressure ulcer of sacral region, stage 4 (principal); G82.20 Paraplegia, unspecified; M86.659 Other chronic osteomyelitis, unspecified thigh; L89.313 Pressure ulcer of right buttock, stage 3; L89.323 Pressure ulcer of left buttock, stage 3; Z79.899 Other long term (current) drug therapy; Z79.4 Long term (current) use of insulin; L89.153 Pressure ulcer of sacral region, stage 3
CPT/HCPCS: 11042; 11045; 87070; 87075; 87077; 87186; 87205

== ENCOUNTER 2018-12-28 10:22 | Outpatient (RCR) | payer OTHER, SELFPAY ==
[2018-12-12 00:58] VITALS: BP 99/63; PULSE 94; RESP 16; TEMP 36.6
[2018-12-28 11:28] VITALS: BP 78/39; PULSE 91; RESP 16; TEMP 37.6; BMI 21.8
--- NOTE | 2018-12-28 12:19 | PN.PCM_ITS ---
(1) Chronic osteomyelitis involving pelvic region and thigh Status: Chronic Current Visit: Yes Code(s): M86.659 - Other chronic osteomyelitis, unspecified thigh (2) Decubitus ulcer of left buttock, stage 4 Status: Chronic Current Visit: Yes Code(s): L89.324 - Pressure ulcer of left buttock, stage 4 (3) Decubitus ulcer of right buttock, stage 4 Status: Chronic Current Visit: Yes Code(s): L89.314 - Pressure ulcer of right buttock, stage 4 (4) Paraplegia Status: Chronic Current Visit: Yes Code(s): G82.20 - Paraplegia, unspecified (5) Sacral decubitus ulcer, stage IV Status: Chronic Current Visit: Yes Code(s): L89.154 - Pressure ulcer of sacral region, stage 4 Type of Wound Date of Service: 12/28/18 Chief Complaint: Non healing decubitus ulcers. History of Wound: Mr. Joyce is a 33yo who presents to the wound center for management of his chronic decubitus ulcers. Initial sacral ulcer was said to have started in November and Buttock ulcers were noted subsequently. He has had an extensive hospital stay over the last couple of months following a work related injury. Both during his hopsital and alf stays, he had wound care ranging from surgical debridement, wound vac and collagen use. He was aura eduled to be restarted on his wound Vac prior to his discharge from the [facility]. He reports significant drainage from the wounds. Also of note is a history of osteomyelitis for which he was on a 6 week IV antibiotic. His however states they were informed that he had developed chronic extensive pelvic area osteomyelitis. He feels well otherwise at this time and denies chills, fever,nausea, vomitting or change in bowel habit. Progress of Wound: No new concerns at this time. Stable Ulcers. Missed appointmenst due to hospital admission. - Physical Exam Vital Signs Temp Pulse Resp BP 99.6 F H 91 16 78/39 L 12/28/18 11:28 12/28/18 11:28 12/28/18 11:28 12/28/18 11:28 General: Alert, Oriented x3, Cooperative, No apparent distress HEENT: Atraumatic, Normocephalic Oral: Moist Mucosa Neck: Supple Extremities: No cyanosis Skin: Ulcer/ Wound Wound Measurements and Assessment WC - Nurse 1 - General Ulcer Measurement Start: 12/28/18 11:28 Freq: Status: Active Protocol: Activity Type Activity Date Activity User E-Sign Co-Sign Detail Recorded Client Recorded Date Recorded By Document 12/28/18 11:28 [id number] 12/28/18 11:39 12/28/18 11:28 Wound Center Nurse 1 [Ulcer Assessment] #4 SACRAL ULCER - SUPERIO -Combined with other wound Yes -Combined with (Name of Wound-Exactly #2 Sacral as it is documented) cluster -Current Size (cm) - Length 3 -Current Size (cm) - Width 4.4 -Current Size (cm) - Depth 1.5 -Total Square Cm 13.2 -Photo Taken No #3 L Buttucks -Current Size (cm) - Length 8.3 -Current Size (cm) - Width 6.4 -Current Size (cm) - Depth 2.5 -Total Square Cm 53.12 -Photo Taken No -Undermining/Tunneling Starts (O' 12 clock) -Undermining/Tunneling Ends (O'clock) 4 -Maximum Distance (cm) 3.5 -Exudate Amt Large -Exudate Type Serosanguineous -Wound Margin Distinct, Outline Attached -Granulation Amt Medium (34-66%) -Granulation Quality Pale,[place] -Necrosis Amt Medium (34-66%) -Necrotic Tissue Type Adherent Slough -Structure Exposed N/A -Texture (Sheyla-wound Skin Appearance) Scarring -Moisture (Sheyla-wound Skin Appearance No Abnormality ) -Color (Sheyla-wound Skin Appearance) Rubor -Temperature (Sheyla-wound Skin No Abnormality Appearance) (Pt Warm) -Tenderness on Palpation (Sheyla-wound No Skin Appearance) -Foul Odor after Cleansing No #2 Sacral Cluster -Combined with other wound Yes -Combined with (Name of Wound-Exactly #4 Sacral Sup as it is documented) -Current Size (cm) - Length 9.5 -Current Size (cm) - Width 14.1 -Current Size (cm) - Depth 1.5 -Total Square Cm 133.95 -Photo Taken No -Undermining/Tunneling Starts (O' 10 clock) -Undermining/Tunneling Ends (O'clock) 2 -Maximum Distance (cm) 3.2 -Exudate Amt Large -Exudate Type Serosanguineous -Wound Margin Thickened -Granulation Amt Medium (34-66%) -Granulation Quality Red -Necrosis Amt Medium (34-66%) -Necrotic Tissue Type Adherent Slough -Structure Exposed N/A -Texture (Sheyla-wound Skin Appearance) Scarring -Moisture (Sheyla-wound Skin Appearance No Abnormality ) -Color (Sheyla-wound Skin Appearance) Rubor -Temperature (Sheyla-wound Skin No Abnormality Appearance) (Pt Warm) -Tenderness on Palpation (Sheyla-wound No Skin Appearance) -Ulcer Cleansing Wound Cleanser -Foul Odor after Cleansing No #1 R Buttocks -Current Size (cm) - Length 9.9 -Current Size (cm) - Width 7.2 -Current Size (cm) - Depth 1.2 -Total Square Cm 71.28 -Undermining/Tunneling Starts (O' 12 clock) -Undermining/Tunneling Ends (O'clock) 1 -Maximum Distance (cm) 1.1 -Exudate Amt Large -Exudate Type Serosanguineous -Wound Margin Distinct, Outline Attached -Granulation Amt Medium (34-66%) -Granulation Quality Pale,[place] -Necrosis Amt Medium (34-66%) -Necrotic Tissue Type Adherent Slough -Structure Exposed Bone -Texture (Sheyla-wound Skin Appearance) Scarring -Moisture (Sheyla-wound Skin Appearance No Abnormality ) -Color (Sheyla-wound Skin Appearance) Rubor -Temperature (Sheyla-wound Skin No Abnormality Appearance) (Pt Warm) -Tenderness on Palpation (Sheyla-wound No Skin Appearance) -Ulcer Cleansing Wound Cleanser -Foul Odor after Cleansing No WC - Nurse 2 - General Ulcer CM Notes Start: 12/28/18 11:28 Freq: Status: Active Protocol: Activity Type Activity Date Activity User E-Sign Co-Sign Detail Recorded Client Recorded Date Recorded By Document 12/28/18 11:46 MW [id number] 12/28/18 11:56 MW 12/28/18 11:46 Wound Center Nurse 2 [Procedure/Treatment] #3 L Buttucks -Time 11:46 -Correct Patient Yes -Correct Side, Site, Position Yes -Correct Procedure Yes -Procedure Performed Yes -Type of Procedure Debridement -Clinical Debridement Subcutaneous -Post Debridement Size (cm) - Length 7.9 -Post Debridement Size (cm) - Width 6.0 -Post Debridement Size (cm) - Depth 2.0 -Total Square Cm 47.40 -Wound/Ulcer Outcome Not Healed -Ulcer Cleansing Rinsed/ Irrigated with Saline -Foul Odor after Cleansing No -Bioengineered Tissue No -Bleeding Controlled with Pressure -Offloading No -Treatment Response Procedure Tolerated Well #2 Sacral Cluster -Time 11:46 -Correct Patient Yes -Correct Side, Site, Position Yes -Correct Procedure Yes -Procedure Performed Yes -Type of Procedure Debridement -Clinical Debridement Subcutaneous -Post Debridement Size (cm) - Length 9.5 -Post Debridement Size (cm) - Width 15.5 -Post Debridement Size (cm) - Depth 2.0 -Total Square Cm 147.25 -Wound/Ulcer Outcome Not Healed -Ulcer Cleansing Rinsed/ Irrigated with Saline -Foul Odor after Cleansing No -Bioengineered Tissue No -Bleeding Controlled with Pressure -Offloading No #1 R Buttocks -Time 11:47 -Correct Patient Yes -Correct Side, Site, Position Yes -Correct Procedure Yes -Procedure Performed Yes -Type of Procedure Debridement -Clinical Debridement Subcutaneous -Post Debridement Size (cm) - Length 9.0 -Post Debridement Size (cm) - Width 7.2 -Post Debridement Size (cm) - Depth 1.1 -Total Square Cm 64.80 -Wound/Ulcer Outcome Not Healed -Ulcer Cleansing Rinsed/ Irrigated with Saline -Foul Odor after Cleansing No -Bioengineered Tissue No -Bleeding Controlled with Pressure -Offloading No -Treatment Response Procedure Tolerated Well [See Physician Procedure note for Specifics] Pain Scale: 0-10 Numeric [Pain] -Is Patient Pain Free? Yes Neurological: Cranial nerves II-XII grossly intact Psych/Mental Status: Normal Affect Debridement Note Post-Debridement Measurements/Treatment WC - Nurse 2 - General Ulcer CM Notes Start: 12/28/18 11:28 Freq: Status: Active Protocol: Activity Type Activity Date Activity User E-Sign Co-Sign Detail Recorded Client Recorded Date Recorded By Document 12/28/18 11:46 MW [id number] 12/28/18 11:56 MW 12/28/18 11:46 Wound Center Nurse 2 #3 L Buttucks -Time 11:46 -Correct Patient Yes -Correct Side, Site, Position Yes -Correct Procedure Yes -Procedure Performed Yes -Type of Procedure Debridement -Clinical Debridement Subcutaneous -Post Debridement Size (cm) - Length 7.9 -Post Debridement Size (cm) - Width 6.0 -Post Debridement Size (cm) - Depth 2.0 -Total Square Cm 47.40 -Wound/Ulcer Outcome Not Healed -Ulcer Cleansing Rinsed/ Irrigated with Saline -Foul Odor after Cleansing No -Bioengineered Tissue No -Bleeding Controlled with Pressure -Offloading No -Treatment Response Procedure Tolerated Well #2 Sacral Cluster -Time 11:46 -Correct Patient Yes -Correct Side, Site, Position Yes -Correct Procedure Yes -Procedure Performed Yes -Type of Procedure Debridement -Clinical Debridement Subcutaneous -Post Debridement Size (cm) - Length 9.5 -Post Debridement Size (cm) - Width 15.5 -Post Debridement Size (cm) - Depth 2.0 -Total Square Cm 147.25 -Wound/Ulcer Outcome Not Healed -Ulcer Cleansing Rinsed/ Irrigated with Saline -Foul Odor after Cleansing No -Bioengineered Tissue No -Bleeding Controlled with Pressure -Offloading No #1 R Buttocks -Time 11:47 -Correct Patient Yes -Correct Side, Site, Position Yes -Correct Procedure Yes -Procedure Performed Yes -Type of Procedure Debridement -Clinical Debridement Subcutaneous -Post Debridement Size (cm) - Length 9.0 -Post Debridement Size (cm) - Width 7.2 -Post Debridement Size (cm) - Depth 1.1 -Total Square Cm 64.80 -Wound/Ulcer Outcome Not Healed -Ulcer Cleansing Rinsed/ Irrigated with Saline -Foul Odor after Cleansing No -Bioengineered Tissue No -Bleeding Controlled with Pressure -Offloading No -Treatment Response Procedure Tolerated Well Pain Scale: 0-10 Numeric Is Patient Pain Free? Yes Wound debrided: Sacral Cluster Wound Grade/Stage: Stage IV Type of Debridement: Excisional debridement Anesthesia Used: 4% Lidocaine Solution Depth: Down to and including healthy tissue, in the subcutaneous layer Percentage of wound debrided: 100 Instrument Used: 7mm curette, #15 blade, Forceps Tissue Removed: Slough and devitalized tissue Severity: Fat Layer Exposed Amount of bleeding with debridement: Mild Bleeding Controlled with: Pressure Patient tolerated procedure well - Additional Wound Wound debrided: Right Buttock Wound Grade/Stage: Stage IV Type of Debridement: Excisional debridement Anesthesia Used: 4% Lidocaine Solution Depth: Down to and including healthy tissue, in the subcutaneous layer Percentage of wound debrided: 100 Instrument Used: 7mm curette Tissue Removed: Slough and devitalized tissue Severity: Fat Layer Exposed Amount of bleeding with debridement: Mild Bleeding Controlled with: Pressure Patient tolerated procedure: Patient tolerated procedure well - Additional Wound Wound debrided: Left Buttock Wound Grade/Stage: Stage IV Type of Debridement: Excisional debridement Anesthesia Used: 4% Lidocaine Solution Depth: Down to and including healthy tissue, in the subcutaneous layer Instrument Used: 7mm curette Tissue Removed: Slough and devitalized tissue Severity: Fat Layer Exposed Amount of bleeding with debridement: Mild Bleeding Controlled with: Pressure Patient tolerated procedure: Patient tolerated procedure well Assessment/Plan Active Problems Sacral decubitus ulcer, stage IV (Chronic) Decubitus ulcer of right buttock, stage 4 (Chronic) Decubitus ulcer of left buttock, stage 4 (Chronic) Chronic osteomyelitis involving pelvic region and thigh (Chronic) Paraplegia (Chronic) Assessment: Same as above. Plan: Stable Ulcers. No concerns at this time. Sacral ulcer now clustered. Left buttock communicates with sacrum. Debridement done as documented above, procedure well-tolerated. Continue 10 minute Acetic acid soak to all ulcers then calcium alginate/collagen dressing. Due to his chronic osteomyeliis Carlos Manuel will be a good candidate for HBO therapy however, due to his ongoing lung/respiratory issues, will hold off HBO assessment for now. Continue optimal dietary and protein intake. Offloading also recommended. His questions were answered and they were advised to call with any further questions or concerns. Follow up in 1 week.
== END 2019-01-11 23:59 ==
LOC: WC 10:22
PROVIDERS: Family Provider Family Medicine; PCP Family Medicine; Referring Provider Internal Medicine; Visit Provider Internal Medicine
DX: L89.154 Pressure ulcer of sacral region, stage 4 (principal); L89.324 Pressure ulcer of left buttock, stage 4; L89.314 Pressure ulcer of right buttock, stage 4; G82.20 Paraplegia, unspecified; M86.659 Other chronic osteomyelitis, unspecified thigh
CPT/HCPCS: 11042; 11045

== ENCOUNTER 2019-03-01 09:15 | Outpatient (RCR) | payer OTHER, SELFPAY ==
[2019-02-22 12:14] VITALS: BMI 21.8
--- NOTE | 2019-02-22 13:56 | HP.PCM_ITS ---
(1) Chronic osteomyelitis involving pelvic region and thigh Status: Chronic Current Visit: Yes Code(s): M86.659 - Other chronic osteomyelitis, unspecified thigh (2) Decubitus ulcer of left buttock, stage 4 Status: Chronic Current Visit: Yes Code(s): L89.324 - Pressure ulcer of left buttock, stage 4 (3) Decubitus ulcer of right buttock, stage 4 Status: Chronic Current Visit: Yes Code(s): L89.314 - Pressure ulcer of right buttock, stage 4 (4) Paraplegia Status: Chronic Current Visit: Yes Code(s): G82.20 - Paraplegia, unspecified (5) Sacral decubitus ulcer, stage IV Status: Chronic Current Visit: Yes Code(s): L89.154 - Pressure ulcer of sacral region, stage 4 History of Present Illness Date of Service: 02/22/19 Chief Complaint: Non healing decubitus ulcers. History of Wound: Mr. Joyce is a 33yo well known to the wound center but was last seen here over a month ago. Initial sacral ulcer was said to have started in November and Buttock ulcers were noted subsequently. He has had an extensive hospital stay over the last couple of months following a work related injury. Both during his hopsital and assisted stays, he had wound care ranging from surgical debridement, wound vac and collagen use. He was scheduled to be restarted on his wound Vac prior to his discharge from the [place]. He reports significant drainage from the wounds. Also of note is a history of osteomyelitis for which he was on a 6 week IV antibiotic. His however states they were informed that he had developed chronic extensive pelvic area osteomyelitis. He feels well otherwise at this time and denies chills, fever,nausea, vomitting or change in bowel habit. 02/22/2019: Above, he was last seen here over a month ago. Had an extensive hospital stay [facility] due to complications from prior neck surgery. They state that his ulcers have been stable. Been doing the acetic acid soak for 10 minutes and then calcium alginate/collagen dressings. Is any concerns at this time. Past Medical History Past Medical History: Chronic Problems Sacral decubitus ulcer, stage IV (Chronic) Decubitus ulcer of right buttock, stage 4 (Chronic) Decubitus ulcer of left buttock, stage 4 (Chronic) Chronic osteomyelitis involving pelvic region and thigh (Chronic) Paraplegia (Chronic) Allergies/Adverse Reactions: Allergies lidocaine Allergy (Verified 10/12/18 10:43) Unknown Home Medications: Ambulatory Orders Medication Instructions Recorded Sitagliptin Phosphate [Januvia] 100 mg PO DAILY 10/11/17 Baclofen 5 mg PO BID 10/12/18 Diazepam [Valium] 5 mg PO BID 10/12/18 Fentanyl 200 ea TD 10/12/18 Ferrous Sulfate 325 mg PO 10/12/18 Insulin Glargine,Hum.rec.anlog 10 unit SQ 10/12/18 [Lantus Solostar] Insulin Lispro [Humalog KwikPen] unit SQ 10/12/18 Magnesium Oxide [Magnesium] 400 mg PO BID 10/12/18 Melatonin 3 mg PO 10/12/18 Metoclopramide HCl [Reglan] 5 mg PO TID 10/12/18 Oxycodone [Oxyfast] 30 mg PO Q4H PRN 10/12/18 Pregabalin [Lyrica] 50 mg PO BID 10/12/18 Sitagliptin Phosphate [Januvia] 100 mg PO 10/12/18 traZODone [Desyrel] 50 mg PO QHS 10/12/18 Smoking Status: Never smoker Review of Systems Constitutional: Denies: Anorexia, Chills, Fever Eyes: Denies: Pain HEENT: Denies: Difficulty Hearing, Head Aches Cardiovascular: Denies: Chest Pain, Chest Pressure Gastrointestinal: Denies: Hematemesis Skin: Denies: Jaundice - Physical Exam General: Alert, Oriented x3, Cooperative, No apparent distress HEENT: Atraumatic, Normocephalic Oral: Moist Mucosa Neck: Supple Extremities: No cyanosis Skin: Ulcer/ Wound Wound Measurements and Assessment WC - Nurse 1 - General Ulcer Measurement Start: 02/22/19 12:14 Freq: Status: Active Protocol: Activity Type Activity Date Activity User E-Sign Co-Sign Detail Recorded Client Recorded Date Recorded By Document 02/22/19 12:14 DL [id number] 02/22/19 12:37 DL 02/22/19 12:14 Wound Center Nurse 1 [Ulcer Assessment] #7 Sacral -Current Size (cm) - Length 10.5 -Current Size (cm) - Width 15 -Current Size (cm) - Depth 1.1 -Total Square Cm 157.5 -Photo Taken Yes -Undermining/Tunneling Starts (O' 9 clock) -Undermining/Tunneling Ends (O'clock) 2 -Maximum Distance (cm) 4.5 -Classification - Thickness Full Thickness with Exposed Support Structure -Exudate Amt Medium -Wound Margin Thickened & Rolled Under -Granulation Amt Large (67-100%) -Granulation Quality Red -Necrosis Amt Small (1-33%) -Necrotic Tissue Type Adherent Slough -Structure Exposed Bone -Texture (Sheyla-wound Skin Appearance) Scarring -Moisture (Sheyla-wound Skin Appearance No Abnormality ) -Color (Sheyla-wound Skin Appearance) No Abnormality -Temperature (Sheyla-wound Skin No Abnormality Appearance) (Pt Warm) -Tenderness on Palpation (Sheyla-wound No Skin Appearance) -Ulcer Cleansing Wound Cleanser -Foul Odor after Cleansing No #6 R Buttocks -Current Size (cm) - Length 9.5 -Current Size (cm) - Width 7 -Current Size (cm) - Depth 1.3 -Total Square Cm 66.5 -Photo Taken Yes -Undermining/Tunneling Starts (O' 10 clock) -Undermining/Tunneling Ends (O'clock) 1 -Maximum Distance (cm) 1.1 -Classification - Thickness Full Thickness with Exposed Support Structure -Exudate Amt Medium -Exudate Type Serosanguineous -Wound Margin Thickened & Rolled Under -Granulation Amt Large (67-100%) -Granulation Quality Red -Necrosis Amt Small (1-33%) -Necrotic Tissue Type Adherent Slough -Structure Exposed Bone -Texture (Sheyla-wound Skin Appearance) Scarring -Moisture (Sheyla-wound Skin Appearance No Abnormality ) -Color (Sheyla-wound Skin Appearance) No Abnormality -Temperature (Sheyla-wound Skin No Abnormality Appearance) (Pt Warm) -Tenderness on Palpation (Sheyla-wound No Skin Appearance) -Ulcer Cleansing Wound Cleanser -Foul Odor after Cleansing No #5 L Buttocks -Current Size (cm) - Length 8.4 -Current Size (cm) - Width 6.5 -Current Size (cm) - Depth 1.4 -Total Square Cm 54.60 -Photo Taken Yes -Undermining/Tunneling Starts (O' 11 clock) -Undermining/Tunneling Ends (O'clock) 2 -Maximum Distance (cm) 3.6 -Exudate Amt Medium -Exudate Type Serosanguineous -Wound Margin Thickened & Rolled Under -Granulation Amt Large (67-100%) -Granulation Quality Red -Necrosis Amt Small (1-33%) -Necrotic Tissue Type Adherent Slough -Structure Exposed N/A -Texture (Sheyla-wound Skin Appearance) Scarring -Moisture (Sheyla-wound Skin Appearance No Abnormality ) -Color (Sheyla-wound Skin Appearance) No Abnormality -Temperature (Sheyla-wound Skin No Abnormality Appearance) (Pt Warm) -Tenderness on Palpation (Sheyla-wound No Skin Appearance) -Ulcer Cleansing Wound Cleanser -Foul Odor after Cleansing No WC - Nurse 2 - General Ulcer CM Notes Start: 02/22/19 12:14 Freq: Status: Active Protocol: Activity Type Activity Date Activity User E-Sign Co-Sign Detail Recorded Client Recorded Date Recorded By Document 02/22/19 12:49 MW [id number] 02/22/19 13:01 MW 02/22/19 12:49 Wound Center Nurse 2 [Procedure/Treatment] #7 Sacral -Time 12:51 -Correct Patient Yes -Correct Side, Site, Position Yes -Correct Procedure Yes -Procedure Performed Yes -Type of Procedure Debridement -Clinical Debridement Subcutaneous -Post Debridement Size (cm) - Length 7.0 -Post Debridement Size (cm) - Width 14.5 -Post Debridement Size (cm) - Depth 2.0 -Total Square Cm 101.50 -Wound/Ulcer Outcome Not Healed -Ulcer Cleansing Rinsed/ Irrigated with Saline -Foul Odor after Cleansing No -Bioengineered Tissue No -Bleeding Controlled with Pressure -Other undermining @12 - 3.3cm -Offloading No -Treatment Response Procedure Tolerated Well #6 R Buttocks -Time 12:51 -Correct Patient Yes -Correct Side, Site, Position Yes -Correct Procedure Yes -Procedure Performed Yes -Type of Procedure Debridement -Clinical Debridement Subcutaneous -Post Debridement Size (cm) - Length 10.0 -Post Debridement Size (cm) - Width 5.0 -Post Debridement Size (cm) - Depth 2.0 -Total Square Cm 50.00 -Wound/Ulcer Outcome Not Healed -Ulcer Cleansing Rinsed/ Irrigated with Saline -Foul Odor after Cleansing No -Bioengineered Tissue No -Bleeding Controlled with Pressure -Other undermining @12 - 2.7cm -Offloading No -Treatment Response Procedure Tolerated Well #5 L Buttocks -Time 12:51 -Correct Patient Yes -Correct Side, Site, Position Yes -Correct Procedure Yes -Procedure Performed Yes -Type of Procedure Debridement -Clinical Debridement Subcutaneous -Post Debridement Size (cm) - Length 8.0 -Post Debridement Size (cm) - Width 6.0 -Post Debridement Size (cm) - Depth 1.8 -Total Square Cm 48.00 -Wound/Ulcer Outcome Not Healed -Ulcer Cleansing Rinsed/ Irrigated with Saline -Foul Odor after Cleansing No -Bioengineered Tissue No -Bleeding Controlled with Pressure -Other undermining @12 - 4.5cm -Offloading No -Treatment Response Procedure Tolerated Well [See Physician Procedure note for Specifics] Pain Scale: 0-10 Numeric [Pain] -Is Patient Pain Free? Yes Neurological: Cranial nerves II-XII grossly intact Psych/Mental Status: Normal Affect Debridement Note Post-Debridement Measurements/Treatment WC - Nurse 2 - General Ulcer CM Notes Start: 02/22/19 12:14 Freq: Status: Active Protocol: Activity Type Activity Date Activity User E-Sign Co-Sign Detail Recorded Client Recorded Date Recorded By Document 02/22/19 12:49 MW [id number] 02/22/19 13:01 MW 02/22/19 12:49 Wound Center Nurse 2 #7 Sacral -Time 12:51 -Correct Patient Yes -Correct Side, Site, Position Yes -Correct Procedure Yes -Procedure Performed Yes -Type of Procedure Debridement -Clinical Debridement Subcutaneous -Post Debridement Size (cm) - Length 7.0 -Post Debridement Size (cm) - Width 14.5 -Post Debridement Size (cm) - Depth 2.0 -Total Square Cm 101.50 -Wound/Ulcer Outcome Not Healed -Ulcer Cleansing Rinsed/ Irrigated with Saline -Foul Odor after Cleansing No -Bioengineered Tissue No -Bleeding Controlled with Pressure -Other undermining @12 - 3.3cm -Offloading No -Treatment Response Procedure Tolerated Well #6 R Buttocks -Time 12:51 -Correct Patient Yes -Correct Side, Site, Position Yes -Correct Procedure Yes -Procedure Performed Yes -Type of Procedure Debridement -Clinical Debridement Subcutaneous -Post Debridement Size (cm) - Length 10.0 -Post Debridement Size (cm) - Width 5.0 -Post Debridement Size (cm) - Depth 2.0 -Total Square Cm 50.00 -Wound/Ulcer Outcome Not Healed -Ulcer Cleansing Rinsed/ Irrigated with Saline -Foul Odor after Cleansing No -Bioengineered Tissue No -Bleeding Controlled with Pressure -Other undermining @12 - 2.7cm -Offloading No -Treatment Response Procedure Tolerated Well #5 L Buttocks -Time 12:51 -Correct Patient Yes -Correct Side, Site, Position Yes -Correct Procedure Yes -Procedure Performed Yes -Type of Procedure Debridement -Clinical Debridement Subcutaneous -Post Debridement Size (cm) - Length 8.0 -Post Debridement Size (cm) - Width 6.0 -Post Debridement Size (cm) - Depth 1.8 -Total Square Cm 48.00 -Wound/Ulcer Outcome Not Healed -Ulcer Cleansing Rinsed/ Irrigated with Saline -Foul Odor after Cleansing No -Bioengineered Tissue No -Bleeding Controlled with Pressure -Other undermining @12 - 4.5cm -Offloading No -Treatment Response Procedure Tolerated Well Pain Scale: 0-10 Numeric Is Patient Pain Free? Yes Wound debrided: Sacral cluster Wound Grade/Stage: Stage 4 Type of Debridement: Excisional debridement Anesthesia Used: 4% Lidocaine Solution Depth: Down to and including healthy tissue, in the subcutaneous layer Percentage of wound debrided: 100 Instrument Used: 7mm curette Tissue Removed: Slough and devitalized tissue Severity: Fat Layer Exposed Amount of bleeding with debridement: Mild Bleeding Controlled with: Pressure Patient tolerated procedure well - Additional Wound Wound debrided: Left Buttock Wound Grade/Stage: Stage IV Type of Debridement: Excisional debridement Depth: Down to and including healthy tissue, in the subcutaneous layer Percentage of wound debrided: 100 Instrument Used: 7mm curette Tissue Removed: Slough and devitalized tissue Severity: Fat Layer Exposed Amount of bleeding with debridement: Mild Bleeding Controlled with: Pressure Patient tolerated procedure: Patient tolerated procedure well - Additional Wound Wound debrided: Right Buttock Wound Grade/Stage: Stage IV Type of Debridement: Excisional debridement Depth: Down to and including healthy tissue, in the subcutaneous layer Percentage of wound debrided: 100 Instrument Used: 7mm curette Tissue Removed: Slough and devitalized tissue Severity: Fat Layer Exposed Amount of bleeding with debridement: Mild Bleeding Controlled with: Pressure Patient tolerated procedure: Patient tolerated procedure well Assessment/Plan Active Problems Sacral decubitus ulcer, stage IV (Chronic) Decubitus ulcer of right buttock, stage 4 (Chronic) Decubitus ulcer of left buttock, stage 4 (Chronic) Chronic osteomyelitis involving pelvic region and thigh (Chronic) Paraplegia (Chronic) Assessment: Same as above. Plan: Stable Ulcers. No concerns at this time. Sacral ulcer still clustered andLeft buttock communicates with sacrum. Debridement done as documented above, procedure well-tolerated. Continue 10 minute Acetic acid soak to all ulcers then calcium alginate/collagen dressing. Due to his chronic osteomyeliis Carlos Manuel will be a good candidate for HBO therapy however, due to his ongoing lung/respiratory issues, will hold off HBO assessment for now. Continue optimal dietary and protein intake. Offloading also recommended. His questions were answered and they were advised to call with any further questions or concerns. Follow up in 1 week. This note was generated with [employer] dictation software. It may contain incorrect words, spelling, and punctuation that were not noted in checking the note before signing. Multi Select Codes - Visit Charges Office Visit/Consults: 12658 OV L3 Est - E and M level 3 - Integumentary Integumentary CPT Codes: 47589 [place] subq tissue 20 sq cm/< - Additional sq cm debrided. Please refer to clinical note.
[2019-03-01 09:13] VITALS: BP 90/45; PULSE 90; RESP 18; TEMP 37.1; BMI 21.8
--- NOTE | 2019-03-01 11:57 | PCM.WC.PN ---
(1) Chronic osteomyelitis involving pelvic region and thigh Status: Chronic Current Visit: Yes Code(s): M86.659 - Other chronic osteomyelitis, unspecified thigh (2) Decubitus ulcer of left buttock, stage 4 Status: Chronic Current Visit: Yes Code(s): L89.324 - Pressure ulcer of left buttock, stage 4 (3) Decubitus ulcer of right buttock, stage 4 Status: Chronic Current Visit: Yes Code(s): L89.314 - Pressure ulcer of right buttock, stage 4 (4) Paraplegia Status: Chronic Current Visit: Yes Code(s): G82.20 - Paraplegia, unspecified (5) Sacral decubitus ulcer, stage IV Status: Chronic Current Visit: Yes Code(s): L89.154 - Pressure ulcer of sacral region, stage 4 Type of Wound Date of Service: 03/01/19 Chief Complaint: Non healing decubitus ulcers. History of Wound: Mr. Joyce is a 33yo well known to the wound center but was last seen here over a month ago. Initial sacral ulcer was said to have started in November and Buttock ulcers were noted subsequently. He has had an extensive hospital stay over the last couple of months following a work related injury. Both during his hopsital and custodial stays, he had wound care ranging from surgical debridement, wound vac and collagen use. He was scheduled to be restarted on his wound Vac prior to his discharge from the [place]. He reports significant drainage from the wounds. Also of note is a history of osteomyelitis for which he was on a 6 week IV antibiotic. His however states they were informed that he had developed chronic extensive pelvic area osteomyelitis. He feels well otherwise at this time and denies chills, fever,nausea, vomitting or change in bowel habit. 02/22/2019: Above, he was last seen here over a month ago. Had an extensive hospital stay [facility] due to complications from prior neck surgery. They state that his ulcers have been stable. Been doing the acetic acid soak for 10 minutes and then calcium alginate/collagen dressings. Is any concerns at this time. Progress of Wound: No new concerns. Stable. - Physical Exam Vital Signs Temp Pulse Resp BP 98.8 F 90 18 90/45 L 03/01/19 09:13 03/01/19 09:13 03/01/19 09:13 03/01/19 09:13 General: Alert, Oriented x3, No apparent distress HEENT: Atraumatic Oral: Moist Mucosa Lungs: Normal air movement Extremities: No cyanosis Skin: Ulcer/ Wound Wound Measurements and Assessment WC - Nurse 1 - General Ulcer Measurement Start: 02/22/19 12:14 Freq: Status: Active Protocol: Activity Type Activity Date Activity User E-Sign Co-Sign Detail Recorded Client Recorded Date Recorded By Document 03/01/19 09:13 [id number] 03/01/19 09:31 HERBER 03/01/19 09:13 Wound Center Nurse 1 [Ulcer Assessment] #7 Sacral -Current Size (cm) - Length 10.4 -Current Size (cm) - Width 15.1 -Current Size (cm) - Depth 1.5 -Total Square Cm 157.04 -Photo Taken No -Undermining/Tunneling Starts (O' 10 clock) -Undermining/Tunneling Ends (O'clock) 2 -Maximum Distance (cm) 5 -Exudate Amt Medium -Exudate Type Serosanguineous -Wound Margin Distinct, Outline Attached -Granulation Amt Medium (34-66%) -Granulation Quality Red -Necrosis Amt Medium (34-66%) -Necrotic Tissue Type Adherent Slough -Structure Exposed Bone -Texture (Sheyla-wound Skin Appearance) Excoriation, Scarring -Moisture (Sheyla-wound Skin Appearance No Abnormality ) -Color (Sheyla-wound Skin Appearance) Rubor -Temperature (Sheyla-wound Skin No Abnormality Appearance) (Pt Warm) -Tenderness on Palpation (Sheyla-wound No Skin Appearance) -Ulcer Cleansing Wound Cleanser -Foul Odor after Cleansing No #6 R Buttocks -Current Size (cm) - Length 10.3 -Current Size (cm) - Width 5.6 -Current Size (cm) - Depth 1.7 -Total Square Cm 57.68 -Photo Taken No -Exudate Amt Medium -Exudate Type Serosanguineous -Wound Margin Thickened & Rolled Under -Granulation Amt Large (67-100%) -Granulation Quality Red -Necrosis Amt Small (1-33%) -Necrotic Tissue Type Adherent Slough -Texture (Sheyla-wound Skin Appearance) Excoriation, Scarring -Moisture (Sheyla-wound Skin Appearance No Abnormality ) -Color (Sheyla-wound Skin Appearance) Rubor -Temperature (Sheyla-wound Skin No Abnormality Appearance) (Pt Warm) -Tenderness on Palpation (Sheyla-wound No Skin Appearance) -Ulcer Cleansing Wound Cleanser -Foul Odor after Cleansing No #5 L Buttocks -Current Size (cm) - Length 7.8 -Current Size (cm) - Width 8.8 -Current Size (cm) - Depth 2.5 -Total Square Cm 68.64 -Photo Taken No -Exudate Amt Medium -Exudate Type Serosanguineous -Wound Margin Thickened & Rolled Under -Granulation Amt Medium (34-66%) -Granulation Quality Red -Necrosis Amt Medium (34-66%) -Necrotic Tissue Type Adherent Slough -Structure Exposed N/A -Texture (Sheyla-wound Skin Appearance) Excoriation, Scarring -Moisture (Sheyla-wound Skin Appearance No Abnormality ) -Color (Sheyla-wound Skin Appearance) Rubor -Temperature (Sheyla-wound Skin No Abnormality Appearance) (Pt Warm) -Tenderness on Palpation (Sheyla-wound No Skin Appearance) -Ulcer Cleansing Wound Cleanser -Foul Odor after Cleansing No [Edema Assessment] -Lower Limb Edema Present NA WC - Nurse 2 - General Ulcer CM Notes Start: 02/22/19 12:14 Freq: Status: Active Protocol: Activity Type Activity Date Activity User E-Sign Co-Sign Detail Recorded Client Recorded Date Recorded By Document 03/01/19 09:38 MW [id number] 03/01/19 09:55 MW 03/01/19 09:38 Wound Center Nurse 2 [Procedure/Treatment] #7 Sacral -Time 09:41 -Correct Patient Yes -Correct Side, Site, Position Yes -Correct Procedure Yes -Procedure Performed Yes -Type of Procedure Debridement -Clinical Debridement Subcutaneous -Post Debridement Size (cm) - Length 9.0 -Post Debridement Size (cm) - Width 14.5 -Post Debridement Size (cm) - Depth 2.0 -Total Square Cm 130.50 -Wound/Ulcer Outcome Not Healed -Ulcer Cleansing Rinsed/ Irrigated with Saline -Foul Odor after Cleansing No -Bioengineered Tissue No -Bleeding Controlled with Pressure -Other undermining @12 , 2.2cm -Offloading No -Treatment Response Procedure Tolerated Well #6 R Buttocks -Time 09:41 -Correct Patient Yes -Correct Side, Site, Position Yes -Correct Procedure Yes -Procedure Performed Yes -Type of Procedure Debridement -Clinical Debridement Subcutaneous -Post Debridement Size (cm) - Length 10.0 -Post Debridement Size (cm) - Width 6.0 -Post Debridement Size (cm) - Depth 1.0 -Total Square Cm 60.00 -Wound/Ulcer Outcome Not Healed -Ulcer Cleansing Rinsed/ Irrigated with Saline -Foul Odor after Cleansing No -Bioengineered Tissue No -Bleeding Controlled with Pressure -Other undermining @12 , 2.0cm -Offloading No -Treatment Response Procedure Tolerated Well #5 L Buttocks -Time 09:41 -Correct Patient Yes -Correct Side, Site, Position Yes -Correct Procedure Yes -Procedure Performed Yes -Type of Procedure Debridement -Clinical Debridement Subcutaneous -Post Debridement Size (cm) - Length 9.0 -Post Debridement Size (cm) - Width 7.0 -Post Debridement Size (cm) - Depth 2.5 -Total Square Cm 63.00 -Wound/Ulcer Outcome Not Healed -Ulcer Cleansing Rinsed/ Irrigated with Saline -Foul Odor after Cleansing No -Bioengineered Tissue No -Bleeding Controlled with Pressure -Other underming @12, 3.5cm -Offloading No -Treatment Response Procedure Tolerated Well [See Physician Procedure note for Specifics] Pain Scale: 0-10 Numeric [Pain] -Is Patient Pain Free? Yes Psych/Mental Status: Normal Affect Debridement Note Post-Debridement Measurements/Treatment WC - Nurse 2 - General Ulcer CM Notes Start: 02/22/19 12:14 Freq: Status: Active Protocol: Activity Type Activity Date Activity User E-Sign Co-Sign Detail Recorded Client Recorded Date Recorded By Document 02/22/19 12:49 MW [id number] 02/22/19 13:01 MW Document 03/01/19 09:38 MW [id number] 03/01/19 09:55 MW 02/22/19 03/01/19 12:49 09:38 Wound Center Nurse 2 #7 Sacral -Time 12:51 09:41 -Correct Patient Yes Yes -Correct Side, Site, Position Yes Yes -Correct Procedure Yes Yes -Procedure Performed Yes Yes -Type of Procedure Debridement Debridement -Clinical Debridement Subcutaneous Subcutaneous -Post Debridement Size (cm) - Length 7.0 9.0 -Post Debridement Size (cm) - Width 14.5 14.5 -Post Debridement Size (cm) - Depth 2.0 2.0 -Total Square Cm 101.50 130.50 -Wound/Ulcer Outcome Not Healed Not Healed -Ulcer Cleansing Rinsed/ Rinsed/ Irrigated with Irrigated with Saline Saline -Foul Odor after Cleansing No No -Bioengineered Tissue No No -Bleeding Controlled with Pressure Pressure -Other undermining @12 undermining @12 - 3.3cm , 2.2cm -Offloading No No -Treatment Response Procedure Procedure Tolerated Well Tolerated Well #6 R Buttocks -Time 12:51 09:41 -Correct Patient Yes Yes -Correct Side, Site, Position Yes Yes -Correct Procedure Yes Yes -Procedure Performed Yes Yes -Type of Procedure Debridement Debridement -Clinical Debridement Subcutaneous Subcutaneous -Post Debridement Size (cm) - Length 10.0 10.0 -Post Debridement Size (cm) - Width 5.0 6.0 -Post Debridement Size (cm) - Depth 2.0 1.0 -Total Square Cm 50.00 60.00 -Wound/Ulcer Outcome Not Healed Not Healed -Ulcer Cleansing Rinsed/ Rinsed/ Irrigated with Irrigated with Saline Saline -Foul Odor after Cleansing No No -Bioengineered Tissue No No -Bleeding Controlled with Pressure Pressure -Other undermining @12 undermining @12 - 2.7cm , 2.0cm -Offloading No No -Treatment Response Procedure Procedure Tolerated Well Tolerated Well #5 L Buttocks -Time 12:51 09:41 -Correct Patient Yes Yes -Correct Side, Site, Position Yes Yes -Correct Procedure Yes Yes -Procedure Performed Yes Yes -Type of Procedure Debridement Debridement -Clinical Debridement Subcutaneous Subcutaneous -Post Debridement Size (cm) - Length 8.0 9.0 -Post Debridement Size (cm) - Width 6.0 7.0 -Post Debridement Size (cm) - Depth 1.8 2.5 -Total Square Cm 48.00 63.00 -Wound/Ulcer Outcome Not Healed Not Healed -Ulcer Cleansing Rinsed/ Rinsed/ Irrigated with Irrigated with Saline Saline -Foul Odor after Cleansing No No -Bioengineered Tissue No No -Bleeding Controlled with Pressure Pressure -Other undermining @12 underming @12, - 4.5cm 3.5cm -Offloading No No -Treatment Response Procedure Procedure Tolerated Well Tolerated Well Pain Scale: 0-10 Numeric Is Patient Pain Free? Yes Yes Wound debrided: Sacral Wound Grade/Stage: Stage IV Type of Debridement: Excisional debridement Anesthesia Used: 4% Lidocaine Solution Depth: Down to and including healthy tissue, in the subcutaneous layer Percentage of wound debrided: 100 Instrument Used: 7mm curette Tissue Removed: Slough and devitalized tissue Severity: Fat Layer Exposed Amount of bleeding with debridement: Mild Bleeding Controlled with: Pressure Patient tolerated procedure well - Additional Wound Wound debrided: Right Buttock Wound Grade/Stage: Stage IV Type of Debridement: Excisional debridement Anesthesia Used: 4% Lidocaine Solution Depth: Down to and including healthy tissue, in the subcutaneous layer Percentage of wound debrided: 100 Instrument Used: 7mm curette Tissue Removed: Slough and devitalized tissue Severity: Fat Layer Exposed Amount of bleeding with debridement: Mild Bleeding Controlled with: Pressure Patient tolerated procedure: Patient tolerated procedure well - Additional Wound Wound debrided: Left Buttock Wound Grade/Stage: Stage IV Type of Debridement: Excisional debridement Anesthesia Used: 4% Lidocaine Solution Depth: Down to and including healthy tissue, in the subcutaneous layer Percentage of wound debrided: 100 Instrument Used: 7mm curette Tissue Removed: Slough and devitalized tissue Severity: Fat Layer Exposed Amount of bleeding with debridement: Mild Bleeding Controlled with: Pressure Patient tolerated procedure: Patient tolerated procedure well Assessment/Plan Active Problems Sacral decubitus ulcer, stage IV (Chronic) Decubitus ulcer of right buttock, stage 4 (Chronic) Decubitus ulcer of left buttock, stage 4 (Chronic) Chronic osteomyelitis involving pelvic region and thigh (Chronic) Paraplegia (Chronic) Assessment: Same as above. Plan: Stable Ulcers. No concerns at this time. Sacral ulcer still clustered and Left buttock communicates with sacrum. Debridement done as documented above, procedure well-tolerated. Continue 10 minute Acetic acid soak to all ulcers then calcium alginate/collagen dressing. Due to his chronic osteomyeliis Carlos Manuel will be a good candidate for HBO therapy however, due to his ongoing lung/respiratory issues, will hold off HBO. Continue optimal dietary and protein intake. Offloading also recommended. His questions were answered and they were advised to call with any further questions or concerns. Follow up in 2 weeks. This note was generated with [employer] software. It may contain incorrect words, spelling, and punctuation that were not noted in checking the note before signing. Code Visit [id number]: [id number] [place] subq tissue 20 sq cm/< - Additional Sq CM debrided. Please refer to clinical note.
== END 2019-03-13 23:59 ==
LOC: WC 09:15
PROVIDERS: Family Provider Family Medicine; PCP Family Medicine; Visit Provider Internal Medicine
DX: L89.154 Pressure ulcer of sacral region, stage 4 (principal); L89.314 Pressure ulcer of right buttock, stage 4; L89.324 Pressure ulcer of left buttock, stage 4; M86.659 Other chronic osteomyelitis, unspecified thigh; G82.20 Paraplegia, unspecified
CPT/HCPCS: 11042; 11045; 99213; G0463

== ENCOUNTER 2019-04-12 11:00 | Outpatient (RCR) | payer OTHER, SELFPAY ==
[2019-03-14 01:05] VITALS: BP 90/45; PULSE 90; RESP 18; TEMP 37.1
[2019-03-15 13:17] VITALS: BP 100/36; PULSE 86; RESP 18; TEMP 37.6; BMI 21.8
--- NOTE | 2019-03-15 14:38 | PN.PCM_ITS ---
(1) Chronic osteomyelitis involving pelvic region and thigh Status: Chronic Current Visit: Yes Code(s): M86.659 - Other chronic osteomyelitis, unspecified thigh (2) Decubitus ulcer of left buttock, stage 4 Status: Chronic Current Visit: Yes Code(s): L89.324 - Pressure ulcer of left buttock, stage 4 (3) Decubitus ulcer of right buttock, stage 4 Status: Chronic Current Visit: Yes Code(s): L89.314 - Pressure ulcer of right buttock, stage 4 (4) Paraplegia Status: Chronic Current Visit: Yes Code(s): G82.20 - Paraplegia, unspecified (5) Sacral decubitus ulcer, stage IV Status: Chronic Current Visit: Yes Code(s): L89.154 - Pressure ulcer of sacral region, stage 4 Type of Wound Date of Service: 03/15/19 Chief Complaint: Non healing decubitus ulcers. History of Wound: Mr. Joyce is a 33yo well known to the wound center but was last seen here over a month ago. Initial sacral ulcer was said to have started in November and Buttock ulcers were noted subsequently. He has had an extensive hospital stay over the last couple of months following a work related injury. Both during his hopsital and longterm stays, he had wound care ranging from surgical debridement, wound vac and collagen use. He was scheduled to be restarted on his wound Vac prior to his discharge from the [facility]. He reports significant drainage from the wounds. Also of note is a history of osteomyelitis for which he was on a 6 week IV antibiotic. His however states they were informed that he had developed chronic extensive pelvic area osteomyelitis. He feels well otherwise at this time and denies chills, fever,nausea, vomitting or change in bowel habit. 02/22/2019: Above, he was last seen here over a month ago. Had an extensive hospital stay [facility] due to complications from prior neck surgery. They state that his ulcers have been stable. Been doing the acetic acid soak for 10 minutes and then calcium alginate/collagen dressings. Is any concerns at this time. Progress of Wound: courtesy visit for Dr. Holland-No new concerns. Stable. - Physical Exam Vital Signs Temp Pulse Resp BP 99.6 F H 86 18 100/36 L 03/15/19 13:17 03/15/19 13:17 03/15/19 13:17 03/15/19 13:17 General: Alert, Oriented x3, Cooperative, No apparent distress HEENT: Atraumatic Oral: Moist Mucosa Lungs: Clear to auscultation, Normal air movement Cardiovascular: Regular rate Abdomen: Soft, Non Tender Extremities: No clubbing, No cyanosis, No edema Skin: Ulcer/ Wound - see nursing documentation, slough and devitalized tissue present, no signs of obvious infection at this time Wound Measurements and Assessment WC - Nurse 1 - General Ulcer Measurement Start: 03/15/19 13:17 Freq: Status: Active Protocol: Activity Type Activity Date Activity User E-Sign Co-Sign Detail Recorded Client Recorded Date Recorded By Document 03/15/19 13:17 DL [id number] 03/15/19 13:24 DL 03/15/19 13:17 Wound Center Nurse 1 [Ulcer Assessment] #7 Sacral -Current Size (cm) - Length 8.2 -Current Size (cm) - Width 15.4 -Current Size (cm) - Depth 1.5 -Total Square Cm 126.28 -Undermining/Tunneling Starts (O' 10 clock) -Undermining/Tunneling Ends (O'clock) 2 -Maximum Distance (cm) 4.2 -Exudate Amt Medium -Exudate Type Serosanguineous -Wound Margin Thickened & Rolled Under -Granulation Amt Large (67-100%) -Granulation Quality Pale,Red -Necrosis Amt Small (1-33%) -Necrotic Tissue Type Adherent Slough -Structure Exposed N/A -Texture (Sheyla-wound Skin Appearance) Scarring -Moisture (Sheyla-wound Skin Appearance No Abnormality ) -Color (Sheyla-wound Skin Appearance) No Abnormality -Temperature (Sheyla-wound Skin No Abnormality Appearance) (Pt Warm) -Tenderness on Palpation (Sheyla-wound No Skin Appearance) -Ulcer Cleansing Wound Cleanser -Foul Odor after Cleansing No #6 R Buttocks -Current Size (cm) - Length 11 -Current Size (cm) - Width 5.5 -Current Size (cm) - Depth 1.5 -Total Square Cm 60.5 -Photo Taken No -Undermining/Tunneling Starts (O' 12 clock) -Undermining/Tunneling Ends (O'clock) 2 -Maximum Distance (cm) 1.8 -Exudate Amt Medium -Exudate Type Serosanguineous -Wound Margin Thickened & Rolled Under -Granulation Amt Large (67-100%) -Granulation Quality Pale,Red -Slough/Fibrin Yes -Necrosis Amt Small (1-33%) -Necrotic Tissue Type Adherent Slough -Structure Exposed N/A -Texture (Sheyla-wound Skin Appearance) Scarring -Moisture (Sheyla-wound Skin Appearance No Abnormality ) -Color (Sheyla-wound Skin Appearance) No Abnormality -Temperature (Sheyla-wound Skin No Abnormality Appearance) (Pt Warm) -Tenderness on Palpation (Sheyla-wound No Skin Appearance) #5 L Buttocks -Current Size (cm) - Length 5.5 -Current Size (cm) - Width 9.7 -Current Size (cm) - Depth 2.1 -Total Square Cm 53.35 -Photo Taken No -Undermining/Tunneling Starts (O' 12 clock) -Undermining/Tunneling Ends (O'clock) 4 -Maximum Distance (cm) 3.3 -Exudate Amt Medium -Exudate Type Serosanguineous -Wound Margin Thickened & Rolled Under -Granulation Amt Large (67-100%) -Granulation Quality Edie,Red -Necrosis Amt Small (1-33%) -Necrotic Tissue Type Adherent Slough -Structure Exposed N/A -Texture (Sheyla-wound Skin Appearance) Scarring -Moisture (Sheyla-wound Skin Appearance No Abnormality ) -Color (Sheyla-wound Skin Appearance) No Abnormality -Temperature (Sheyla-wound Skin No Abnormality Appearance) (Pt Warm) -Tenderness on Palpation (Sheyla-wound No Skin Appearance) -Ulcer Cleansing Wound Cleanser -Foul Odor after Cleansing No WC - Nurse 2 - General Ulcer CM Notes Start: 03/15/19 13:17 Freq: Status: Active Protocol: Activity Type Activity Date Activity User E-Sign Co-Sign Detail Recorded Client Recorded Date Recorded By Document 03/15/19 13:31 DL [id number] 03/15/19 13:41 DL 03/15/19 13:31 Wound Center Nurse 2 [Procedure/Treatment] #7 Sacral -Time 13:31 -Correct Patient Yes -Correct Side, Site, Position Yes -Correct Procedure Yes -Procedure Performed Yes -Type of Procedure Debridement -Clinical Debridement Subcutaneous -Post Debridement Size (cm) - Length 9.5 -Post Debridement Size (cm) - Width 16.0 -Post Debridement Size (cm) - Depth 2.5 -Total Square Cm 152.00 -Wound/Ulcer Outcome Not Healed -Ulcer Cleansing Rinsed/ Irrigated with Saline -Foul Odor after Cleansing No -Bioengineered Tissue No -Bleeding Controlled with Pressure -Other undermining @12 , 3.8cm -Offloading No -Treatment Response Procedure Tolerated Well #6 R Buttocks -Time 13:32 -Correct Patient Yes -Correct Side, Site, Position Yes -Correct Procedure Yes -Procedure Performed Yes -Type of Procedure Debridement -Clinical Debridement Subcutaneous -Post Debridement Size (cm) - Length 11.0 -Post Debridement Size (cm) - Width 8.0 -Post Debridement Size (cm) - Depth 1.8 -Total Square Cm 88.00 -Wound/Ulcer Outcome Not Healed -Ulcer Cleansing Rinsed/ Irrigated with Saline -Foul Odor after Cleansing No -Bioengineered Tissue No -Bleeding Controlled with Pressure -Other undermining @ 12, 2.0cm -Offloading No -Treatment Response Procedure Tolerated Well #5 L Buttocks -Time 13:32 -Correct Patient Yes -Correct Side, Site, Position Yes -Correct Procedure Yes -Procedure Performed Yes -Type of Procedure Debridement -Clinical Debridement Subcutaneous -Post Debridement Size (cm) - Length 9.0 -Post Debridement Size (cm) - Width 9.3 -Post Debridement Size (cm) - Depth 2.8 -Total Square Cm 83.70 -Wound/Ulcer Outcome Not Healed -Ulcer Cleansing Rinsed/ Irrigated with Saline -Foul Odor after Cleansing No -Bioengineered Tissue No -Bleeding Controlled with Pressure -Other underminging @ 12, 3.6cm -Offloading No -Treatment Response Procedure Tolerated Well [See Physician Procedure note for Specifics] Pain Scale: 0-10 Numeric [Pain] -Is Patient Pain Free? Yes Neurological: Neuro grossly intact Psych/Mental Status: Normal Affect, Appropriate, Alert and oriented to time, place, person, mood and affect Debridement Note Post-Debridement Measurements/Treatment WC - Nurse 2 - General Ulcer CM Notes Start: 03/15/19 13:17 Freq: Status: Active Protocol: Activity Type Activity Date Activity User E-Sign Co-Sign Detail Recorded Client Recorded Date Recorded By Document 03/15/19 13:31 DL [id number] 03/15/19 13:41 DL 03/15/19 13:31 Wound Center Nurse 2 #7 Sacral -Time 13:31 -Correct Patient Yes -Correct Side, Site, Position Yes -Correct Procedure Yes -Procedure Performed Yes -Type of Procedure Debridement -Clinical Debridement Subcutaneous -Post Debridement Size (cm) - Length 9.5 -Post Debridement Size (cm) - Width 16.0 -Post Debridement Size (cm) - Depth 2.5 -Total Square Cm 152.00 -Wound/Ulcer Outcome Not Healed -Ulcer Cleansing Rinsed/ Irrigated with Saline -Foul Odor after Cleansing No -Bioengineered Tissue No -Bleeding Controlled with Pressure -Other undermining @12 , 3.8cm -Offloading No -Treatment Response Procedure Tolerated Well #6 R Buttocks -Time 13:32 -Correct Patient Yes -Correct Side, Site, Position Yes -Correct Procedure Yes -Procedure Performed Yes -Type of Procedure Debridement -Clinical Debridement Subcutaneous -Post Debridement Size (cm) - Length 11.0 -Post Debridement Size (cm) - Width 8.0 -Post Debridement Size (cm) - Depth 1.8 -Total Square Cm 88.00 -Wound/Ulcer Outcome Not Healed -Ulcer Cleansing Rinsed/ Irrigated with Saline -Foul Odor after Cleansing No -Bioengineered Tissue No -Bleeding Controlled with Pressure -Other undermining @ 12, 2.0cm -Offloading No -Treatment Response Procedure Tolerated Well #5 L Buttocks -Time 13:32 -Correct Patient Yes -Correct Side, Site, Position Yes -Correct Procedure Yes -Procedure Performed Yes -Type of Procedure Debridement -Clinical Debridement Subcutaneous -Post Debridement Size (cm) - Length 9.0 -Post Debridement Size (cm) - Width 9.3 -Post Debridement Size (cm) - Depth 2.8 -Total Square Cm 83.70 -Wound/Ulcer Outcome Not Healed -Ulcer Cleansing Rinsed/ Irrigated with Saline -Foul Odor after Cleansing No -Bioengineered Tissue No -Bleeding Controlled with Pressure -Other underminging @ 12, 3.6cm -Offloading No -Treatment Response Procedure Tolerated Well Pain Scale: 0-10 Numeric Is Patient Pain Free? Yes Wound debrided: Stage IV right buttock, stage IV left buttock, stage IV sacral Type of Debridement: Excisional debridement Anesthesia Used: 5% Lidocaine Gel Depth: in the subcutaneous layer Percentage of wound debrided: 100 Instrument Used: 7mm curette Tissue Removed: Slough and devitalized tissue Severity: Fat Layer Exposed Amount of bleeding with debridement: Mild Bleeding Controlled with: Pressure Patient tolerated procedure well Assessment/Plan Active Problems Sacral decubitus ulcer, stage IV (Chronic) Decubitus ulcer of right buttock, stage 4 (Chronic) Decubitus ulcer of left buttock, stage 4 (Chronic) Chronic osteomyelitis involving pelvic region and thigh (Chronic) Paraplegia (Chronic) Assessment: Same as above. Plan: Courtesy visit for Dr. Holland?stable Ulcers. No concerns at this time. Sacral ulcer still clustered and Left buttock communicates with sacrum. Debridement done as documented above, procedure well-tolerated. Continue 10 minute Acetic acid soak to all ulcers then calcium alginate/collagen dressing. Due to his chronic osteomyeliis Carlos Manuel will be a good candidate for HBO therapy however, due to his ongoing lung/respiratory issues, will hold off HBO. Continue optimal dietary and protein intake. Offloading also recommended. His questions were answered and they were advised to call with any further questions or concerns. Follow up in 2 weeks. This note was generated with Etable dictation software. It may contain incorrect words, spelling, and punctuation that were not noted in checking the note before signing. Code Visit 111xxx-113xx: 28377 [place] subq tissue 20 sq cm/< Add On Codes: 87179 Oxana subq tissue add-on
[2019-03-29 09:44] VITALS: BP 105/60; PULSE 96; RESP 16; TEMP 37.1; BMI 21.8
--- NOTE | 2019-03-29 10:48 | PN.PCM_ITS ---
(1) Chronic osteomyelitis involving pelvic region and thigh Status: Chronic Current Visit: Yes Code(s): M86.659 - Other chronic osteomyelitis, unspecified thigh (2) Decubitus ulcer of left buttock, stage 4 Status: Chronic Current Visit: Yes Code(s): L89.324 - Pressure ulcer of left buttock, stage 4 (3) Decubitus ulcer of right buttock, stage 4 Status: Chronic Current Visit: Yes Code(s): L89.314 - Pressure ulcer of right buttock, stage 4 (4) Paraplegia Status: Chronic Current Visit: Yes Code(s): G82.20 - Paraplegia, unspecified (5) Sacral decubitus ulcer, stage IV Status: Chronic Current Visit: Yes Code(s): L89.154 - Pressure ulcer of sacral region, stage 4 Type of Wound Date of Service: 03/29/19 Chief Complaint: Non healing decubitus ulcers. History of Wound: Mr. Joyce is a 33yo well known to the wound center but was last seen here over a month ago. Initial sacral ulcer was said to have started in November and Buttock ulcers were noted subsequently. He has had an extensive hospital stay over the last couple of months following a work related injury. Both during his hopsital and long-term stays, he had wound care ranging from surgical debridement, wound vac and collagen use. He was scheduled to be restarted on his wound Vac prior to his discharge from the [place]. He reports significant drainage from the wounds. Also of note is a history of osteomyelitis for which he was on a 6 week IV antibiotic. His however states they were informed that he had developed chronic extensive pelvic area osteomyelitis. He feels well otherwise at this time and denies chills, fever,nausea, vomitting or change in bowel habit. 02/22/2019: Above, he was last seen here over a month ago. Had an extensive hospital stay [facility] due to complications from prior neck surgery. They state that his ulcers have been stable. Been doing the acetic acid soak for 10 minutes and then calcium alginate/collagen dressings. Is any concerns at this time. Progress of Wound: No new concerns. Stable. - Physical Exam Vital Signs Temp Pulse Resp BP 98.7 F 96 16 105/60 03/29/19 09:44 03/29/19 09:44 03/29/19 09:44 03/29/19 09:44 General: Alert, Oriented x3, Cooperative, No apparent distress HEENT: Atraumatic, Normocephalic Oral: Moist Mucosa Neck: Supple Lungs: Normal air movement Extremities: No cyanosis Skin: Ulcer/ Wound Wound Measurements and Assessment WC - Nurse 1 - General Ulcer Measurement Start: 03/15/19 13:17 Freq: Status: Active Protocol: Activity Type Activity Date Activity User E-Sign Co-Sign Detail Recorded Client Recorded Date Recorded By Document 03/29/19 09:44 [id number] 03/29/19 09:52 HERBER 03/29/19 09:44 Wound Center Nurse 1 [Ulcer Assessment] #7 Sacral -Combined with other wound No -Current Size (cm) - Length 8.5 -Current Size (cm) - Width 14.3 -Current Size (cm) - Depth 0.9 -Total Square Cm 121.55 -Photo Taken No -Epithelialization None Present -Tunneling No -Undermining/Tunneling Yes -Undermining/Tunneling Starts (O' 7 clock) -Undermining/Tunneling Ends (O'clock) 3 -Maximum Distance (cm) 3.9 -Circular Undermining No -Exudate Amt Large -Exudate Type Serosanguineous -Wound Margin Flat & Intact -Granulation Amt Large (67-100%) -Granulation Quality Red -Slough/Fibrin Yes -Necrosis Amt Small (1-33%) -Necrotic Tissue Type Adherent Slough -Structure Exposed Bone -Texture (Sheyla-wound Skin Appearance) Assessed -Moisture (Sheyla-wound Skin Appearance Assessed,Dry/ ) Scaly -Color (Sheyla-wound Skin Appearance) Assessed -Temperature (Sheyla-wound Skin No Abnormality Appearance) (Pt Warm) -Tenderness on Palpation (Sheyla-wound No Skin Appearance) -Ulcer Cleansing Wound Cleanser -Foul Odor after Cleansing No #6 R Buttocks -Combined with other wound No -Current Size (cm) - Length 11.9 -Current Size (cm) - Width 6.7 -Total Square Cm 79.73 -Photo Taken No -Epithelialization None Present -Tunneling No -Undermining/Tunneling No -Circular Undermining No -Exudate Amt Large -Exudate Type Serosanguineous -Wound Margin Flat & Intact -Granulation Amt Large (67-100%) -Granulation Quality Red -Slough/Fibrin Yes -Necrosis Amt Small (1-33%) -Necrotic Tissue Type Adherent Slough -Texture (Sheyla-wound Skin Appearance) Assessed, Friable -Moisture (Sheyla-wound Skin Appearance Assessed,Dry/ ) Scaly -Color (Sheyla-wound Skin Appearance) Assessed -Temperature (Sheyla-wound Skin No Abnormality Appearance) (Pt Warm) -Tenderness on Palpation (Sheyla-wound No Skin Appearance) -Ulcer Cleansing Rinsed/ Irrigated with Saline -Foul Odor after Cleansing No #5 L Buttocks -Combined with other wound No -Current Size (cm) - Length 11.6 -Current Size (cm) - Width 5.7 -Current Size (cm) - Depth 1.1 -Total Square Cm 66.12 -Photo Taken No -Epithelialization None Present -Tunneling No -Undermining/Tunneling Yes -Undermining/Tunneling Starts (O' 10 clock) -Undermining/Tunneling Ends (O'clock) 4 -Maximum Distance (cm) 2.6 -Circular Undermining No -Exudate Amt Large -Exudate Type Serosanguineous -Wound Margin Flat & Intact -Granulation Amt Medium (34-66%) -Granulation Quality Red -Slough/Fibrin Yes -Necrosis Amt Medium (34-66%) -Necrotic Tissue Type Adherent Slough -Structure Exposed Bone -Texture (Sheyla-wound Skin Appearance) Assessed -Moisture (Sheyla-wound Skin Appearance Dry/Scaly ) -Color (Sheyla-wound Skin Appearance) Assessed -Temperature (Sheyla-wound Skin No Abnormality Appearance) (Pt Warm) -Tenderness on Palpation (Sheyla-wound No Skin Appearance) -Ulcer Cleansing Wound Cleanser -Foul Odor after Cleansing No WC - Nurse 2 - General Ulcer CM Notes Start: 03/15/19 13:17 Freq: Status: Active Protocol: Activity Type Activity Date Activity User E-Sign Co-Sign Detail Recorded Client Recorded Date Recorded By Document 03/29/19 10:27 MW [id number] 03/29/19 10:37 MW 03/29/19 10:27 Wound Center Nurse 2 [Procedure/Treatment] #7 Sacral -Time 10:28 -Correct Patient Yes -Correct Side, Site, Position Yes -Correct Procedure Yes -Procedure Performed Yes -Type of Procedure Debridement -Clinical Debridement Subcutaneous -Post Debridement Size (cm) - Length 9.0 -Post Debridement Size (cm) - Width 13.5 -Post Debridement Size (cm) - Depth 2.0 -Total Square Cm 121.50 -Wound/Ulcer Outcome Not Healed -Ulcer Cleansing Rinsed/ Irrigated with Saline -Foul Odor after Cleansing No -Bioengineered Tissue No -Bleeding Controlled with Pressure -Offloading No -Treatment Response Procedure Tolerated Well #6 R Buttocks -Time 10:28 -Correct Patient Yes -Correct Side, Site, Position Yes -Correct Procedure Yes -Procedure Performed Yes -Type of Procedure Debridement -Clinical Debridement Subcutaneous -Post Debridement Size (cm) - Length 11.0 -Post Debridement Size (cm) - Width 5.5 -Post Debridement Size (cm) - Depth 1.6 -Total Square Cm 60.50 -Wound/Ulcer Outcome Not Healed -Ulcer Cleansing Rinsed/ Irrigated with Saline -Foul Odor after Cleansing No -Bioengineered Tissue No -Bleeding Controlled with Pressure -Offloading No -Treatment Response Procedure Tolerated Well #5 L Buttocks -Time 10:28 -Correct Patient Yes -Correct Side, Site, Position Yes -Correct Procedure Yes -Procedure Performed Yes -Type of Procedure Debridement -Clinical Debridement Subcutaneous -Post Debridement Size (cm) - Length 10.5 -Post Debridement Size (cm) - Width 6.0 -Post Debridement Size (cm) - Depth 2.5 -Total Square Cm 63.00 -Wound/Ulcer Outcome Not Healed -Ulcer Cleansing Rinsed/ Irrigated with Saline -Foul Odor after Cleansing No -Bioengineered Tissue No -Bleeding Controlled with Pressure -Offloading No -Treatment Response Procedure Tolerated Well [See Physician Procedure note for Specifics] Pain Scale: 0-10 Numeric [Pain] -Is Patient Pain Free? Yes Musculoskeletal: No Muscle Wasting Neurological: Cranial nerves II-XII grossly intact Psych/Mental Status: Normal Affect Debridement Note Post-Debridement Measurements/Treatment WC - Nurse 2 - General Ulcer CM Notes Start: 03/15/19 13:17 Freq: Status: Active Protocol: Activity Type Activity Date Activity User E-Sign Co-Sign Detail Recorded Client Recorded Date Recorded By Document 03/15/19 13:31 DL [id number] 03/15/19 13:41 DL Document 03/29/19 10:27 MW [id number] 03/29/19 10:37 MW 03/15/19 03/29/19 13:31 10:27 Wound Center Nurse 2 #7 Sacral -Time 13:31 10:28 -Correct Patient Yes Yes -Correct Side, Site, Position Yes Yes -Correct Procedure Yes Yes -Procedure Performed Yes Yes -Type of Procedure Debridement Debridement -Clinical Debridement Subcutaneous Subcutaneous -Post Debridement Size (cm) - Length 9.5 9.0 -Post Debridement Size (cm) - Width 16.0 13.5 -Post Debridement Size (cm) - Depth 2.5 2.0 -Total Square Cm 152.00 121.50 -Wound/Ulcer Outcome Not Healed Not Healed -Ulcer Cleansing Rinsed/ Rinsed/ Irrigated with Irrigated with Saline Saline -Foul Odor after Cleansing No No -Bioengineered Tissue No No -Bleeding Controlled with Pressure Pressure -Other undermining @12 , 3.8cm -Offloading No No -Treatment Response Procedure Procedure Tolerated Well Tolerated Well #6 R Buttocks -Time 13:32 10:28 -Correct Patient Yes Yes -Correct Side, Site, Position Yes Yes -Correct Procedure Yes Yes -Procedure Performed Yes Yes -Type of Procedure Debridement Debridement -Clinical Debridement Subcutaneous Subcutaneous -Post Debridement Size (cm) - Length 11.0 11.0 -Post Debridement Size (cm) - Width 8.0 5.5 -Post Debridement Size (cm) - Depth 1.8 1.6 -Total Square Cm 88.00 60.50 -Wound/Ulcer Outcome Not Healed Not Healed -Ulcer Cleansing Rinsed/ Rinsed/ Irrigated with Irrigated with Saline Saline -Foul Odor after Cleansing No No -Bioengineered Tissue No No -Bleeding Controlled with Pressure Pressure -Other undermining @ 12, 2.0cm -Offloading No No -Treatment Response Procedure Procedure Tolerated Well Tolerated Well #5 L Buttocks -Time 13:32 10:28 -Correct Patient Yes Yes -Correct Side, Site, Position Yes Yes -Correct Procedure Yes Yes -Procedure Performed Yes Yes -Type of Procedure Debridement Debridement -Clinical Debridement Subcutaneous Subcutaneous -Post Debridement Size (cm) - Length 9.0 10.5 -Post Debridement Size (cm) - Width 9.3 6.0 -Post Debridement Size (cm) - Depth 2.8 2.5 -Total Square Cm 83.70 63.00 -Wound/Ulcer Outcome Not Healed Not Healed -Ulcer Cleansing Rinsed/ Rinsed/ Irrigated with Irrigated with Saline Saline -Foul Odor after Cleansing No No -Bioengineered Tissue No No -Bleeding Controlled with Pressure Pressure -Other underminging @ 12, 3.6cm -Offloading No No -Treatment Response Procedure Procedure Tolerated Well Tolerated Well Pain Scale: 0-10 Numeric Is Patient Pain Free? Yes Yes Wound debrided: Scaral Cluster Wound Grade/Stage: Stage IV Type of Debridement: Excisional debridement Anesthesia Used: 4% Lidocaine Solution Depth: Down to and including healthy tissue, in the subcutaneous layer Percentage of wound debrided: 100 Instrument Used: 7mm curette Tissue Removed: Slough and devitalized tissue Severity: Fat Layer Exposed Amount of bleeding with debridement: Mild Bleeding Controlled with: Pressure Patient tolerated procedure well - Additional Wound Wound debrided: Right Buttock Wound Grade/Stage: Stage IV Type of Debridement: Excisional debridement Anesthesia Used: 4% Lidocaine Solution Depth: Down to and including healthy tissue, in the subcutaneous layer Percentage of wound debrided: 100 Instrument Used: 7mm curette Tissue Removed: Slough and devitalized tissue Severity: Fat Layer Exposed Amount of bleeding with debridement: Mild Bleeding Controlled with: Pressure Patient tolerated procedure: Patient tolerated procedure well - Additional Wound Wound debrided: Left Buttock Wound Grade/Stage: Stage IV Type of Debridement: Excisional debridement Anesthesia Used: 4% Lidocaine Solution Depth: Down to and including healthy tissue, in the subcutaneous layer Percentage of wound debrided: 100 Instrument Used: 7mm curette Tissue Removed: Slough and devitalized tissue Severity: Fat Layer Exposed Amount of bleeding with debridement: Mild Bleeding Controlled with: Pressure Patient tolerated procedure: Patient tolerated procedure well Assessment/Plan Active Problems Sacral decubitus ulcer, stage IV (Chronic) Decubitus ulcer of right buttock, stage 4 (Chronic) Decubitus ulcer of left buttock, stage 4 (Chronic) Chronic osteomyelitis involving pelvic region and thigh (Chronic) Paraplegia (Chronic) Assessment: Same as above. Plan: Stable Ulcers. No concerns at this time. Sacral ulcer still clustered and Left buttock communicates with sacrum. Debridement done as documented above, procedure well-tolerated. Continue 10 minute Acetic acid soak to all ulcers then calcium alginate/collagen dressing. Due to his chronic osteomyeliis Carlos Manuel will be a good candidate for HBO therapy however, due to his ongoing lung/respiratory issues, will hold off HBO. Continue optimal dietary and protein intake. Offloading also recommended. His questions were answered and they were advised to call with any further questions or concerns. Follow up in 2 weeks. This note was generated with [employer] dictation software. It may contain incorrect words, spelling, and punctuation that were not noted in checking the note before signing. Code Visit [id number]: [id number] [place] subq tissue 20 sq cm/< - Additional Sq CM debrided. Please refer to clinical note
[2019-04-12 11:04] VITALS: BP 89/57; PULSE 88; RESP 18; TEMP 37.5; BMI 21.8
--- NOTE | 2019-04-12 12:42 | PN.PCM_ITS ---
(1) Chronic osteomyelitis involving pelvic region and thigh Status: Chronic Current Visit: Yes Code(s): M86.659 - Other chronic osteomyelitis, unspecified thigh (2) Decubitus ulcer of left buttock, stage 4 Status: Chronic Current Visit: Yes Code(s): L89.324 - Pressure ulcer of left buttock, stage 4 (3) Decubitus ulcer of right buttock, stage 4 Status: Chronic Current Visit: Yes Code(s): L89.314 - Pressure ulcer of right buttock, stage 4 (4) Paraplegia Status: Chronic Current Visit: Yes Code(s): G82.20 - Paraplegia, unspecified (5) Sacral decubitus ulcer, stage IV Status: Chronic Current Visit: Yes Code(s): L89.154 - Pressure ulcer of sacral region, stage 4 Type of Wound Date of Service: 04/12/19 Chief Complaint: Non healing decubitus ulcers. History of Wound: Mr. Joyce is a 33yo well known to the wound center but was last seen here over a month ago. Initial sacral ulcer was said to have started in November and Buttock ulcers were noted subsequently. He has had an extensive hospital stay over the last couple of months following a work related injury. Both during his [facility] and [facility] stays, he had wound care ranging from surgical debridement, wound vac and collagen use. He was scheduled to be restarted on his wound Vac prior to his discharge from [facility] [place]. He reports significant drainage from the wounds. Also of note is a history of osteomyelitis for which he was on a 6 week IV antibiotic. His however states they were informed that he had developed chronic extensive pelvic area osteomyelitis. He feels well otherwise at this time and denies chills, fever,nausea, vomitting or change in bowel habit. 02/22/2019: Above, he was last seen here over a month ago. Had an extensive hospital stay [facility] due to complications from prior neck surgery. They state that his ulcers have been stable. Been doing the acetic acid soak for 10 minutes and then calcium alginate/collagen dressings. Is any concerns at this time. Progress of Wound: No new concerns. Stable. - Physical Exam Vital Signs Temp Pulse Resp BP 99.5 F H 88 18 89/57 L 04/12/19 11:04 04/12/19 11:04 04/12/19 11:04 04/12/19 11:04 General: Alert, Oriented x3, Cooperative, No apparent distress HEENT: Atraumatic, Normocephalic Oral: Moist Mucosa Neck: Supple Lungs: Normal air movement Extremities: No cyanosis Skin: Ulcer/ Wound Wound Measurements and Assessment WC - Nurse 1 - General Ulcer Measurement Start: 03/15/19 13:17 Freq: Status: Active Protocol: Activity Type Activity Date Activity User E-Sign Co-Sign Detail Recorded Client Recorded Date Recorded By Document 04/12/19 11:04 HERBER [id number] 04/12/19 11:17 HERBER 04/12/19 11:04 Wound Center Nurse 1 [Ulcer Assessment] #7 Sacral -Combined with other wound No -Current Size (cm) - Length 8 -Current Size (cm) - Width 16.1 -Current Size (cm) - Depth 1.5 -Total Square Cm 128.8 -Tunneling No -Undermining/Tunneling Yes -Undermining/Tunneling Starts (O' 10 clock) -Undermining/Tunneling Ends (O'clock) 3 -Maximum Distance (cm) 4.5 -Exudate Amt Large -Exudate Type Serosanguineous -Wound Margin Thickened & Rolled Under -Granulation Amt Large (67-100%) -Granulation Quality [place] -Slough/Fibrin Yes -Necrosis Amt Medium (34-66%) -Necrotic Tissue Type Adherent Slough -Structure Exposed N/A -Texture (Sheyla-wound Skin Appearance) Excoriation -Moisture (Sheyla-wound Skin Appearance Assessed ) -Color (Sheyla-wound Skin Appearance) Assessed -Temperature (Sheyla-wound Skin No Abnormality Appearance) (Pt Warm) -Tenderness on Palpation (Sheyla-wound No Skin Appearance) -Ulcer Cleansing Wound Cleanser -Foul Odor after Cleansing No #6 R Buttocks -Combined with other wound No -Current Size (cm) - Length 12.6 -Current Size (cm) - Width 6.3 -Current Size (cm) - Depth 2.9 -Total Square Cm 79.38 -Tunneling No -Undermining/Tunneling Yes -Undermining/Tunneling Starts (O' 12 clock) -Undermining/Tunneling Ends (O'clock) 12 -Maximum Distance (cm) 1.1 -Exudate Amt Large -Exudate Type Serosanguineous -Wound Margin Thickened & Rolled Under -Granulation Amt Large (67-100%) -Granulation Quality [place] -Slough/Fibrin Yes -Necrosis Amt Small (1-33%) -Necrotic Tissue Type Adherent Slough -Structure Exposed N/A -Texture (Sheyla-wound Skin Appearance) Assessed, Excoriation, Friable -Moisture (Sheyla-wound Skin Appearance Assessed ) -Color (Sheyla-wound Skin Appearance) Assessed -Temperature (Sheyla-wound Skin No Abnormality Appearance) (Pt Warm) -Tenderness on Palpation (Sheyla-wound No Skin Appearance) -Ulcer Cleansing Wound Cleanser -Foul Odor after Cleansing No #5 L Buttocks -Combined with other wound No -Current Size (cm) - Length 9.6 -Current Size (cm) - Width 7 -Current Size (cm) - Depth 2.3 -Total Square Cm 67.2 -Tunneling No -Undermining/Tunneling Yes -Undermining/Tunneling Starts (O' 11 clock) -Undermining/Tunneling Ends (O'clock) 11 -Maximum Distance (cm) 3.2 -Exudate Amt Large -Exudate Type Serosanguineous -Wound Margin Thickened & Rolled Under -Granulation Amt Large (67-100%) -Granulation Quality [place] -Slough/Fibrin Yes -Necrosis Amt Small (1-33%) -Necrotic Tissue Type Adherent Slough -Structure Exposed N/A -Texture (Sheyla-wound Skin Appearance) Assessed, Excoriation, Friable -Moisture (Sheyla-wound Skin Appearance Assessed ) -Color (Sheyla-wound Skin Appearance) Assessed -Temperature (Sheyla-wound Skin No Abnormality Appearance) (Pt Warm) -Tenderness on Palpation (Sheyla-wound No Skin Appearance) -Ulcer Cleansing Wound Cleanser -Foul Odor after Cleansing No WC - Nurse 2 - General Ulcer CM Notes Start: 03/15/19 13:17 Freq: Status: Active Protocol: Activity Type Activity Date Activity User E-Sign Co-Sign Detail Recorded Client Recorded Date Recorded By Document 04/12/19 11:38 MW [id number] 04/12/19 11:52 MW 04/12/19 11:38 Wound Center Nurse 2 [Procedure/Treatment] #7 Sacral -Time 11:40 -Correct Patient Yes -Correct Side, Site, Position Yes -Correct Procedure Yes -Procedure Performed Yes -Type of Procedure Debridement -Clinical Debridement Subcutaneous -Post Debridement Size (cm) - Length 7.8 -Post Debridement Size (cm) - Width 15.0 -Post Debridement Size (cm) - Depth 1.8 -Total Square Cm 117.00 -Wound/Ulcer Outcome Not Healed -Ulcer Cleansing Rinsed/ Irrigated with Saline -Foul Odor after Cleansing No -Bioengineered Tissue No -Bleeding Controlled with Pressure -Other undermining @10 -11, 4.5cm -Offloading No -Treatment Response Procedure Tolerated Well #6 R Buttocks -Time 11:40 -Correct Patient Yes -Correct Side, Site, Position Yes -Correct Procedure Yes -Procedure Performed Yes -Type of Procedure Debridement -Clinical Debridement Subcutaneous -Post Debridement Size (cm) - Length 9.7 -Post Debridement Size (cm) - Width 6.0 -Post Debridement Size (cm) - Depth 2.1 -Total Square Cm 58.20 -Wound/Ulcer Outcome Not Healed -Ulcer Cleansing Rinsed/ Irrigated with Saline -Foul Odor after Cleansing No -Bioengineered Tissue No -Bleeding Controlled with Pressure -Offloading No -Treatment Response Procedure Tolerated Well #5 L Buttocks -Time 11:41 -Correct Patient Yes -Correct Side, Site, Position Yes -Correct Procedure Yes -Procedure Performed Yes -Type of Procedure Debridement -Clinical Debridement Subcutaneous -Post Debridement Size (cm) - Length 11.0 -Post Debridement Size (cm) - Width 5.5 -Post Debridement Size (cm) - Depth 2.3 -Total Square Cm 60.50 -Wound/Ulcer Outcome Not Healed -Ulcer Cleansing Rinsed/ Irrigated with Saline -Foul Odor after Cleansing No -Bioengineered Tissue No -Bleeding Controlled with Pressure -Other undermining @12 , 4.0 cm -Offloading No -Treatment Response Procedure Tolerated Well [See Physician Procedure note for Specifics] Pain Scale: 0-10 Numeric [Pain] -Is Patient Pain Free? Yes Neurological: Cranial nerves II-XII grossly intact Psych/Mental Status: Normal Affect Debridement Note Post-Debridement Measurements/Treatment WC - Nurse 2 - General Ulcer CM Notes Start: 03/15/19 13:17 Freq: Status: Active Protocol: Activity Type Activity Date Activity User E-Sign Co-Sign Detail Recorded Client Recorded Date Recorded By Document 03/15/19 13:31 DL [id number] 03/15/19 13:41 DL Document 03/29/19 10:27 MW [id number] 03/29/19 10:37 MW Document 04/12/19 11:38 MW [id number] 04/12/19 11:52 MW 03/15/19 03/29/19 04/12/19 13:31 10:27 11:38 Wound Center Nurse 2 #7 Sacral -Time 13:31 10:28 11:40 -Correct Patient Yes Yes Yes -Correct Side, Site, Position Yes Yes Yes -Correct Procedure Yes Yes Yes -Procedure Performed Yes Yes Yes -Type of Procedure Debridement Debridement Debridement -Clinical Debridement Subcutaneous Subcutaneous Subcutaneous -Post Debridement Size (cm) - Length 9.5 9.0 7.8 -Post Debridement Size (cm) - Width 16.0 13.5 15.0 -Post Debridement Size (cm) - Depth 2.5 2.0 1.8 -Total Square Cm 152.00 121.50 117.00 -Wound/Ulcer Outcome Not Healed Not Healed Not Healed -Ulcer Cleansing Rinsed/ Rinsed/ Rinsed/ Irrigated with Irrigated with Irrigated with Saline Saline Saline -Foul Odor after Cleansing No No No -Bioengineered Tissue No No No -Bleeding Controlled with Pressure Pressure Pressure -Other undermining @12 undermining @10 , 3.8cm -11, 4.5cm -Offloading No No No -Treatment Response Procedure Procedure Procedure Tolerated Well Tolerated Well Tolerated Well #6 R Buttocks -Time 13:32 10:28 11:40 -Correct Patient Yes Yes Yes -Correct Side, Site, Position Yes Yes Yes -Correct Procedure Yes Yes Yes -Procedure Performed Yes Yes Yes -Type of Procedure Debridement Debridement Debridement -Clinical Debridement Subcutaneous Subcutaneous Subcutaneous -Post Debridement Size (cm) - Length 11.0 11.0 9.7 -Post Debridement Size (cm) - Width 8.0 5.5 6.0 -Post Debridement Size (cm) - Depth 1.8 1.6 2.1 -Total Square Cm 88.00 60.50 58.20 -Wound/Ulcer Outcome Not Healed Not Healed Not Healed -Ulcer Cleansing Rinsed/ Rinsed/ Rinsed/ Irrigated with Irrigated with Irrigated with Saline Saline Saline -Foul Odor after Cleansing No No No -Bioengineered Tissue No No No -Bleeding Controlled with Pressure Pressure Pressure -Other undermining @ 12, 2.0cm -Offloading No No No -Treatment Response Procedure Procedure Procedure Tolerated Well Tolerated Well Tolerated Well #5 L Buttocks -Time 13:32 10:28 11:41 -Correct Patient Yes Yes Yes -Correct Side, Site, Position Yes Yes Yes -Correct Procedure Yes Yes Yes -Procedure Performed Yes Yes Yes -Type of Procedure Debridement Debridement Debridement -Clinical Debridement Subcutaneous Subcutaneous Subcutaneous -Post Debridement Size (cm) - Length 9.0 10.5 11.0 -Post Debridement Size (cm) - Width 9.3 6.0 5.5 -Post Debridement Size (cm) - Depth 2.8 2.5 2.3 -Total Square Cm 83.70 63.00 60.50 -Wound/Ulcer Outcome Not Healed Not Healed Not Healed -Ulcer Cleansing Rinsed/ Rinsed/ Rinsed/ Irrigated with Irrigated with Irrigated with Saline Saline Saline -Foul Odor after Cleansing No No No -Bioengineered Tissue No No No -Bleeding Controlled with Pressure Pressure Pressure -Other underminging @ undermining @12 12, 3.6cm , 4.0 cm -Offloading No No No -Treatment Response Procedure Procedure Procedure Tolerated Well Tolerated Well Tolerated Well Pain Scale: 0-10 Numeric Is Patient Pain Free? Yes Yes Yes Wound debrided: Sacral Wound Grade/Stage: Stage IV Type of Debridement: Excisional debridement Anesthesia Used: 4% Lidocaine Solution Depth: Down to and including healthy tissue, in the subcutaneous layer Percentage of wound debrided: 100 Instrument Used: 7mm curette Tissue Removed: Slough and devitalized tissue Severity: Fat Layer Exposed Amount of bleeding with debridement: Mild Bleeding Controlled with: Pressure Patient tolerated procedure well - Additional Wound Wound debrided: Left buttock Wound Grade/Stage: Stage IV Type of Debridement: Excisional debridement Anesthesia Used: 4% Lidocaine Solution Depth: Down to and including healthy tissue, in the subcutaneous layer Percentage of wound debrided: 100 Instrument Used: 7mm curette Tissue Removed: Slough and devitalized tissue Severity: Fat Layer Exposed Amount of bleeding with debridement: Mild Bleeding Controlled with: Pressure Patient tolerated procedure: Patient tolerated procedure well - Additional Wound Wound debrided: Right buttock Wound Grade/Stage: Stage IV Type of Debridement: Excisional debridement Anesthesia Used: 4% Lidocaine Solution Depth: Down to and including healthy tissue, in the subcutaneous layer Percentage of wound debrided: 100 Instrument Used: 7mm curette Tissue Removed: Slough and devitalized tissue Severity: Fat Layer Exposed Amount of bleeding with debridement: Mild Bleeding Controlled with: Pressure Patient tolerated procedure: Patient tolerated procedure well Assessment/Plan Active Problems Sacral decubitus ulcer, stage IV (Chronic) Decubitus ulcer of right buttock, stage 4 (Chronic) Decubitus ulcer of left buttock, stage 4 (Chronic) Chronic osteomyelitis involving pelvic region and thigh (Chronic) Paraplegia (Chronic) Assessment: Same as above. Plan: Stable Ulcers. No concerns at this time. Sacral ulcer still clustered and Left buttock communicates with sacrum. Debridement done as documented above, procedure well-tolerated. Continue 10 minute Acetic acid soak to all ulcers then calcium alginate/collagen dressing. Due to his chronic osteomyeliis Carlos Manuel will be a good candidate for HBO therapy however, this was held due to his respiratory issues however, he is remained stable since January. Will revisit this shortly. Continue optimal dietary and protein intake. Offloading also recommended. His questions were answered and they were advised to call with any further questions or concerns. Follow up in 2 weeks. This note was generated with [employer] dictation software. It may contain incorrect words, spelling, and punctuation that were not noted in checking the note before signing. Code Visit [id number]: [id number] [place] subq tissue 20 sq cm/< - Additional square centimeter debrided. Please refer to clinical note.
== END 2019-04-13 23:59 ==
LOC: WC 11:00
PROVIDERS: Family Provider Family Medicine; PCP Family Medicine; Visit Provider Internal Medicine
DX: L89.154 Pressure ulcer of sacral region, stage 4 (principal); L89.324 Pressure ulcer of left buttock, stage 4; L89.314 Pressure ulcer of right buttock, stage 4; G82.20 Paraplegia, unspecified; M86.68 Other chronic osteomyelitis, other site
CPT/HCPCS: 11042; 11045

== ENCOUNTER 2019-05-10 10:30 | Outpatient (RCR) | payer OTHER, SELFPAY ==
[2019-04-14 00:57] VITALS: BP 89/57; PULSE 88; RESP 18; TEMP 37.5
[2019-04-26 11:14] VITALS: BP 81/42; PULSE 91; RESP 18; TEMP 37.6; BMI 21.8
--- NOTE | 2019-04-26 12:43 | PN.PCM_ITS ---
(1) Chronic osteomyelitis involving pelvic region and thigh Status: Chronic Current Visit: Yes Code(s): M86.659 - Other chronic osteomyelitis, unspecified thigh (2) Decubitus ulcer of left buttock, stage 4 Status: Chronic Current Visit: Yes Code(s): L89.324 - Pressure ulcer of left buttock, stage 4 (3) Decubitus ulcer of right buttock, stage 4 Status: Chronic Current Visit: Yes Code(s): L89.314 - Pressure ulcer of right buttock, stage 4 (4) Paraplegia Status: Chronic Current Visit: Yes Code(s): G82.20 - Paraplegia, unspecified (5) Sacral decubitus ulcer, stage IV Status: Chronic Current Visit: Yes Code(s): L89.154 - Pressure ulcer of sacral region, stage 4 Type of Wound Date of Service: 04/26/19 Chief Complaint: Non healing decubitus ulcers. History of Wound: Mr. Joyce is a 33yo well known to the wound center but was last seen here over a month ago. Initial sacral ulcer was said to have started in November and Buttock ulcers were noted subsequently. He has had an extensive hospital stay over the last couple of months following a work related injury. Both during his [facility] and [facility] stays, he had wound care ranging from surgical debridement, wound vac and collagen use. He was scheduled to be restarted on his wound Vac prior to his discharge from the [place]. He reports significant drainage from the wounds. Also of note is a history of osteomyelitis for which he was on a 6 week IV antibiotic. His however states they were informed that he had developed chronic extensive pelvic area osteomyelitis. He feels well otherwise at this time and denies chills, fever,nausea, vomitting or change in bowel habit. 02/22/2019: Above, he was last seen here over a month ago. Had an extensive hospital stay [facility] due to complications from prior neck surgery. They state that his ulcers have been stable. Been doing the acetic acid soak for 10 minutes and then calcium alginate/collagen dressings. Is any concerns at this time. Progress of Wound: No new concerns. Stable. - Physical Exam Vital Signs Temp Pulse Resp BP 99.6 F H 91 18 81/42 L 04/26/19 11:14 04/26/19 11:14 04/26/19 11:14 04/26/19 11:14 General: Alert, Oriented x3, Cooperative, No apparent distress HEENT: Atraumatic, Normocephalic Neck: Supple Lungs: Normal air movement Extremities: No cyanosis Skin: Ulcer/ Wound Wound Measurements and Assessment WC - Nurse 1 - General Ulcer Measurement Start: 04/26/19 11:14 Freq: Status: Active Protocol: Activity Type Activity Date Activity User E-Sign Co-Sign Detail Recorded Client Recorded Date Recorded By Document 04/26/19 11:14 RB [id number] 04/26/19 11:20 RB 04/26/19 11:14 Wound Center Nurse 1 [Ulcer Assessment] #7 Sacral -Combined with other wound No -Current Size (cm) - Length 8.3 -Current Size (cm) - Width 15.2 -Current Size (cm) - Depth 1.6 -Total Square Cm 126.16 -Tunneling No -Undermining/Tunneling Yes -Undermining/Tunneling Starts (O' 10 clock) -Undermining/Tunneling Ends (O'clock) 12 -Maximum Distance (cm) 3.5 -Undermining/Tunneling Starts #2 (O' 1 clock) -Undermining/Tunneling Ends #2 (O' 4 clock) -Maximum Distance #2 (cm) 4 -Circular Undermining No -Exudate Amt Medium -Exudate Type Serosanguineous -Wound Margin Thickened & Rolled Under -Granulation Amt Large (67-100%) -Granulation Quality [place],Red -Slough/Fibrin Yes -Necrosis Amt Small (1-33%) -Necrotic Tissue Type Adherent Slough -Structure Exposed N/A -Texture (Sheyla-wound Skin Appearance) Assessed, Scarring -Moisture (Sheyla-wound Skin Appearance Assessed, ) Maceration -Color (Sheyla-wound Skin Appearance) Assessed -Temperature (Sheyla-wound Skin No Abnormality Appearance) (Pt Warm) -Tenderness on Palpation (Sheyla-wound No Skin Appearance) -Ulcer Cleansing Wound Cleanser -Foul Odor after Cleansing No #6 R Buttocks -Combined with other wound No -Current Size (cm) - Length 11.5 -Current Size (cm) - Width 1.3 -Current Size (cm) - Depth 1.5 -Total Square Cm 14.95 -Tunneling No -Undermining/Tunneling Yes -Undermining/Tunneling Starts (O' 1 clock) -Undermining/Tunneling Ends (O'clock) 4 -Maximum Distance (cm) 1.8 -Exudate Amt Large -Exudate Type Serosanguineous -Wound Margin Thickened & Rolled Under -Granulation Amt Medium (34-66%) -Granulation Quality [place] -Slough/Fibrin Yes -Necrosis Amt Large (67-100%) -Necrotic Tissue Type Adherent Slough -Structure Exposed N/A -Texture (Sheyla-wound Skin Appearance) Assessed, Scarring -Moisture (Sheyla-wound Skin Appearance Assessed ) -Color (Sheyla-wound Skin Appearance) Assessed -Temperature (Sheyla-wound Skin No Abnormality Appearance) (Pt Warm) -Tenderness on Palpation (Sheyla-wound No Skin Appearance) -Ulcer Cleansing Wound Cleanser -Foul Odor after Cleansing No #5 L Buttocks -Combined with other wound No -Current Size (cm) - Length 10.2 -Current Size (cm) - Width 5.5 -Current Size (cm) - Depth 2 -Total Square Cm 56.10 -Photo Taken No -Tunneling No -Undermining/Tunneling Yes -Undermining/Tunneling Starts (O' 1 clock) -Undermining/Tunneling Ends (O'clock) 5 -Maximum Distance (cm) 3.8 -Circular Undermining No -Exudate Amt Large -Exudate Type Serosanguineous -Wound Margin Thickened & Rolled Under -Granulation Amt Medium (34-66%) -Granulation Quality [place] -Slough/Fibrin Yes -Necrosis Amt Medium (34-66%) -Necrotic Tissue Type Adherent Slough -Structure Exposed N/A -Texture (Sheyla-wound Skin Appearance) Assessed, Scarring -Moisture (Sheyla-wound Skin Appearance Assessed ) -Color (Sheyla-wound Skin Appearance) Assessed -Temperature (Sheyla-wound Skin No Abnormality Appearance) (Pt Warm) -Tenderness on Palpation (Sheyla-wound No Skin Appearance) -Ulcer Cleansing Wound Cleanser -Foul Odor after Cleansing No WC - Nurse 2 - General Ulcer CM Notes Start: 04/26/19 11:14 Freq: Status: Active Protocol: Activity Type Activity Date Activity User E-Sign Co-Sign Detail Recorded Client Recorded Date Recorded By Document 04/26/19 11:50 MW [id number] 04/26/19 12:07 MW 04/26/19 11:50 Wound Center Nurse 2 [Procedure/Treatment] #7 Sacral -Time 11:53 -Correct Patient Yes -Correct Side, Site, Position Yes -Correct Procedure Yes -Procedure Performed Yes -Type of Procedure Debridement -Clinical Debridement Subcutaneous -Post Debridement Size (cm) - Length 6.5 -Post Debridement Size (cm) - Width 14.0 -Post Debridement Size (cm) - Depth 1.8 -Total Square Cm 91.00 -Wound/Ulcer Outcome Not Healed -Ulcer Cleansing Rinsed/ Irrigated with Saline -Foul Odor after Cleansing No -Bioengineered Tissue No -Bleeding Controlled with Pressure -Other UNDERMINING @ 11, 2.5CM -Offloading No -Treatment Response Procedure Tolerated Well #6 R Buttocks -Time 11:53 -Correct Patient Yes -Correct Side, Site, Position Yes -Correct Procedure Yes -Procedure Performed Yes -Type of Procedure Debridement -Clinical Debridement Subcutaneous -Post Debridement Size (cm) - Length 11.5 -Post Debridement Size (cm) - Width 5.0 -Post Debridement Size (cm) - Depth 2.0 -Total Square Cm 57.50 -Wound/Ulcer Outcome Not Healed -Ulcer Cleansing Rinsed/ Irrigated with Saline -Foul Odor after Cleansing No -Bioengineered Tissue No -Bleeding Controlled with Pressure -Other UNDERMINING @ 12, 2.0CM -Offloading No -Treatment Response Procedure Tolerated Well #5 L Buttocks -Time 11:54 -Correct Patient Yes -Correct Side, Site, Position Yes -Correct Procedure Yes -Procedure Performed Yes -Type of Procedure Debridement -Clinical Debridement Subcutaneous -Post Debridement Size (cm) - Length 10.0 -Post Debridement Size (cm) - Width 5.5 -Post Debridement Size (cm) - Depth 2.3 -Total Square Cm 55.00 -Wound/Ulcer Outcome Not Healed -Ulcer Cleansing Rinsed/ Irrigated with Saline -Foul Odor after Cleansing No -Bioengineered Tissue No -Bleeding Controlled with Pressure -Other UNDERMINING @ 12, 4.0CM -Offloading No -Treatment Response Procedure Tolerated Well [See Physician Procedure note for Specifics] Pain Scale: 0-10 Numeric [Pain] -Is Patient Pain Free? Yes Neurological: Cranial nerves II-XII grossly intact Psych/Mental Status: Normal Affect Debridement Note Post-Debridement Measurements/Treatment WC - Nurse 2 - General Ulcer CM Notes Start: 04/26/19 11:14 Freq: Status: Active Protocol: Activity Type Activity Date Activity User E-Sign Co-Sign Detail Recorded Client Recorded Date Recorded By Document 04/26/19 11:50 MW [id number] 04/26/19 12:07 MW 04/26/19 11:50 Wound Center Nurse 2 #7 Sacral -Time 11:53 -Correct Patient Yes -Correct Side, Site, Position Yes -Correct Procedure Yes -Procedure Performed Yes -Type of Procedure Debridement -Clinical Debridement Subcutaneous -Post Debridement Size (cm) - Length 6.5 -Post Debridement Size (cm) - Width 14.0 -Post Debridement Size (cm) - Depth 1.8 -Total Square Cm 91.00 -Wound/Ulcer Outcome Not Healed -Ulcer Cleansing Rinsed/ Irrigated with Saline -Foul Odor after Cleansing No -Bioengineered Tissue No -Bleeding Controlled with Pressure -Other UNDERMINING @ 11, 2.5CM -Offloading No -Treatment Response Procedure Tolerated Well #6 R Buttocks -Time 11:53 -Correct Patient Yes -Correct Side, Site, Position Yes -Correct Procedure Yes -Procedure Performed Yes -Type of Procedure Debridement -Clinical Debridement Subcutaneous -Post Debridement Size (cm) - Length 11.5 -Post Debridement Size (cm) - Width 5.0 -Post Debridement Size (cm) - Depth 2.0 -Total Square Cm 57.50 -Wound/Ulcer Outcome Not Healed -Ulcer Cleansing Rinsed/ Irrigated with Saline -Foul Odor after Cleansing No -Bioengineered Tissue No -Bleeding Controlled with Pressure -Other UNDERMINING @ 12, 2.0CM -Offloading No -Treatment Response Procedure Tolerated Well #5 L Buttocks -Time 11:54 -Correct Patient Yes -Correct Side, Site, Position Yes -Correct Procedure Yes -Procedure Performed Yes -Type of Procedure Debridement -Clinical Debridement Subcutaneous -Post Debridement Size (cm) - Length 10.0 -Post Debridement Size (cm) - Width 5.5 -Post Debridement Size (cm) - Depth 2.3 -Total Square Cm 55.00 -Wound/Ulcer Outcome Not Healed -Ulcer Cleansing Rinsed/ Irrigated with Saline -Foul Odor after Cleansing No -Bioengineered Tissue No -Bleeding Controlled with Pressure -Other UNDERMINING @ 12, 4.0CM -Offloading No -Treatment Response Procedure Tolerated Well Pain Scale: 0-10 Numeric Is Patient Pain Free? Yes Wound debrided: Sacral Cluster Wound Grade/Stage: Stage IV Type of Debridement: Excisional debridement Anesthesia Used: 4% Lidocaine Solution Depth: Down to and including healthy tissue, in the subcutaneous layer Percentage of wound debrided: 100 Instrument Used: 7mm curette Tissue Removed: Slough and devitalized tissue Severity: Fat Layer Exposed Amount of bleeding with debridement: Mild Bleeding Controlled with: Pressure Patient tolerated procedure well - Additional Wound Wound debrided: Right Buttock Wound Grade/Stage: Stage IV Anesthesia Used: 4% Lidocaine Solution Depth: Down to and including healthy tissue, in the subcutaneous layer Percentage of wound debrided: 100 Instrument Used: 7mm curette Tissue Removed: Slough and devitalized tissue Severity: Fat Layer Exposed Amount of bleeding with debridement: Mild Bleeding Controlled with: Pressure Patient tolerated procedure: Patient tolerated procedure well - Additional Wound Wound debrided: Left Buttock Wound Grade/Stage: Stage IV Type of Debridement: Excisional debridement Anesthesia Used: 4% Lidocaine Solution Depth: Down to and including healthy tissue, in the subcutaneous layer Percentage of wound debrided: 100 Instrument Used: 7mm curette Tissue Removed: Slough and devitalized tissue Severity: Fat Layer Exposed Amount of bleeding with debridement: Mild Bleeding Controlled with: Pressure Patient tolerated procedure: Patient tolerated procedure well Assessment/Plan Active Problems Sacral decubitus ulcer, stage IV (Chronic) Decubitus ulcer of right buttock, stage 4 (Chronic) Decubitus ulcer of left buttock, stage 4 (Chronic) Chronic osteomyelitis involving pelvic region and thigh (Chronic) Paraplegia (Chronic) Assessment: Same as above. Plan: Stable Ulcers. No concerns at this time. Sacral ulcer still clustered and Left buttock communicates with sacrum. Debridement done as documented above, procedure well-tolerated. Continue 10 minute Acetic acid soak to all ulcers then calcium alginate/collagen dressing. Due to his chronic osteomyeliis Carlos Manuel will be a good candidate for HBO therapy however, this was held due to his respiratory issues however, he is remained stable since January. He is open to this but need needs more time to think about it. Continue optimal dietary and protein intake. Offloading also recommended. His questions were answered and they were advised to call with any further questions or concerns. Follow up in 2 weeks. This note was generated with [employer]ent[employer] software. It may contain incorrect words, spelling, and punctuation that were not noted in checking the note before signing. Code Visit [id number]: [id number] [place] subq tissue 20 sq cm/< - Additional Sq Cm debrided. Please refer to the clinical note.
[2019-05-10 11:24] VITALS: BP 89/59; PULSE 110; RESP 16; TEMP 37.6; BMI 21.8
--- NOTE | 2019-05-10 16:27 | PCM.WC.PN ---
(1) Chronic osteomyelitis involving pelvic region and thigh Status: Chronic Current Visit: Yes Code(s): M86.659 - Other chronic osteomyelitis, unspecified thigh (2) Decubitus ulcer of left buttock, stage 4 Status: Chronic Current Visit: Yes Code(s): L89.324 - Pressure ulcer of left buttock, stage 4 (3) Decubitus ulcer of right buttock, stage 4 Status: Chronic Current Visit: Yes Code(s): L89.314 - Pressure ulcer of right buttock, stage 4 (4) Paraplegia Status: Chronic Current Visit: Yes Code(s): G82.20 - Paraplegia, unspecified (5) Sacral decubitus ulcer, stage IV Status: Chronic Current Visit: Yes Code(s): L89.154 - Pressure ulcer of sacral region, stage 4 Type of Wound Date of Service: 05/10/19 Chief Complaint: Non healing decubitus ulcers. History of Wound: Mr. Joyce is a 33yo well known to the wound center but was last seen here over a month ago. Initial sacral ulcer was said to have started in November and Buttock ulcers were noted subsequently. He has had an extensive hospital stay over the last couple of months following a work related injury. Both during his hopsital and jail stays, he had wound care ranging from surgical debridement, wound vac and collagen use. He was scheduled to be restarted on his wound Vac prior to his discharge from the [place]. He reports significant drainage from the wounds. Also of note is a history of osteomyelitis for which he was on a 6 week IV antibiotic. His however states they were informed that he had developed chronic extensive pelvic area osteomyelitis. He feels well otherwise at this time and denies chills, fever,nausea, vomitting or change in bowel habit. 02/22/2019: Above, he was last seen here over a month ago. Had an extensive hospital stay [facility] due to complications from prior neck surgery. They state that his ulcers have been stable. Been doing the acetic acid soak for 10 minutes and then calcium alginate/collagen dressings. Is any concerns at this time. Progress of Wound: No new concerns. Stable. - Physical Exam Vital Signs Temp Pulse Resp BP 99.6 F H 110 H 16 89/59 L 05/10/19 11:24 05/10/19 11:24 05/10/19 11:24 05/10/19 11:24 General: Alert, Oriented x3, Cooperative, No apparent distress HEENT: Atraumatic, Normocephalic Oral: Moist Mucosa Neck: Supple Extremities: No cyanosis Skin: Ulcer/ Wound Wound Measurements and Assessment WC - Nurse 1 - General Ulcer Measurement Start: 04/26/19 11:14 Freq: Status: Active Protocol: Activity Type Activity Date Activity User E-Sign Co-Sign Detail Recorded Client Recorded Date Recorded By Document 05/10/19 11:24 [facility] [id number] 05/10/19 11:40 [facility] 05/10/19 11:24 Wound Center Nurse 1 [Ulcer Assessment] #7 Sacral -Combined with other wound No -Current Size (cm) - Length 9.4 -Current Size (cm) - Width 15.3 -Current Size (cm) - Depth 1.5 -Total Square Cm 143.82 -Photo Taken Yes -Epithelialization Small 1-33% -Tunneling No -Undermining/Tunneling No -Circular Undermining No -Exudate Amt Large -Exudate Type Serosanguineous -Wound Margin Thickened & Rolled Under -Granulation Amt Large (67-100%) -Granulation Quality Pale,Red -Slough/Fibrin Yes -Necrosis Amt Small (1-33%) -Necrotic Tissue Type Adherent Slough -Texture (Sheyla-wound Skin Appearance) Assessed, Scarring -Moisture (Sheyla-wound Skin Appearance Assessed ) -Color (Sheyla-wound Skin Appearance) Assessed -Temperature (Sheyla-wound Skin No Abnormality Appearance) (Pt Warm) -Tenderness on Palpation (Sheyla-wound No Skin Appearance) -Ulcer Cleansing soapy water -Foul Odor after Cleansing No #6 R Buttocks -Combined with other wound No -Current Size (cm) - Length 11 -Current Size (cm) - Width 5.9 -Current Size (cm) - Depth 1.2 -Total Square Cm 64.9 -Photo Taken No -Epithelialization None Present -Tunneling No -Undermining/Tunneling Yes -Undermining/Tunneling Starts (O' 12 clock) -Undermining/Tunneling Ends (O'clock) 4 -Maximum Distance (cm) 1.5 -Circular Undermining No -Exudate Amt Large -Exudate Type Serosanguineous -Wound Margin Distinct, Outline Attached -Granulation Amt Large (67-100%) -Granulation Quality Pale,Red -Slough/Fibrin Yes -Necrosis Amt Small (1-33%) -Necrotic Tissue Type Adherent Slough -Texture (Sheyla-wound Skin Appearance) Assessed, Scarring -Moisture (Sheyla-wound Skin Appearance Assessed ) -Color (Sheyla-wound Skin Appearance) Assessed -Temperature (Sheyla-wound Skin No Abnormality Appearance) (Pt Warm) -Tenderness on Palpation (Sheyla-wound No Skin Appearance) -Ulcer Cleansing soapy water -Foul Odor after Cleansing No #5 L Buttocks -Combined with other wound No -Current Size (cm) - Length 6.5 -Current Size (cm) - Width 7.7 -Current Size (cm) - Depth 3.5 -Total Square Cm 50.05 -Photo Taken No -Epithelialization None Present -Tunneling No -Undermining/Tunneling Yes -Undermining/Tunneling Starts (O' 12 clock) -Undermining/Tunneling Ends (O'clock) 5 -Maximum Distance (cm) 1.9 -Circular Undermining No -Exudate Amt Small -Exudate Type Sanguineous -Wound Margin Thickened & Rolled Under -Granulation Amt Large (67-100%) -Granulation Quality Pale,Red -Slough/Fibrin Yes -Necrosis Amt Small (1-33%) -Necrotic Tissue Type Adherent Slough -Texture (Sheyla-wound Skin Appearance) Assessed, Scarring -Moisture (Sheyla-wound Skin Appearance Assessed ) -Color (Sheyla-wound Skin Appearance) Assessed -Temperature (Sheyla-wound Skin No Abnormality Appearance) (Pt Warm) -Tenderness on Palpation (Sheyla-wound No Skin Appearance) -Ulcer Cleansing soapy water -Foul Odor after Cleansing No WC - Nurse 2 - General Ulcer CM Notes Start: 04/26/19 11:14 Freq: Status: Active Protocol: Activity Type Activity Date Activity User E-Sign Co-Sign Detail Recorded Client Recorded Date Recorded By Document 05/10/19 12:23 MW [id number] 05/10/19 12:27 MW 05/10/19 12:23 Wound Center Nurse 2 [Procedure/Treatment] #7 Sacral -Time 12:23 -Correct Patient Yes -Correct Side, Site, Position Yes -Correct Procedure Yes -Procedure Performed Yes -Type of Procedure Debridement -Clinical Debridement Subcutaneous -Post Debridement Size (cm) - Length 8.5 -Post Debridement Size (cm) - Width 14.0 -Post Debridement Size (cm) - Depth 2.0 -Total Square Cm 119.00 -Wound/Ulcer Outcome Not Healed -Ulcer Cleansing Rinsed/ Irrigated with Saline -Foul Odor after Cleansing No -Bioengineered Tissue No -Bleeding Controlled with Pressure -Offloading No -Treatment Response Procedure Tolerated Well #6 R Buttocks -Time 12:24 -Correct Patient Yes -Correct Side, Site, Position Yes -Correct Procedure Yes -Procedure Performed Yes -Type of Procedure Debridement -Clinical Debridement Subcutaneous -Post Debridement Size (cm) - Length 11.0 -Post Debridement Size (cm) - Width 5.0 -Post Debridement Size (cm) - Depth 1.5 -Total Square Cm 55.00 -Wound/Ulcer Outcome Not Healed -Ulcer Cleansing Rinsed/ Irrigated with Saline -Foul Odor after Cleansing No -Bioengineered Tissue No -Bleeding Controlled with Pressure -Offloading No -Treatment Response Procedure Tolerated Well #5 L Buttocks -Time 12:24 -Correct Patient Yes -Correct Side, Site, Position Yes -Procedure Performed Yes -Type of Procedure Debridement -Clinical Debridement Subcutaneous -Post Debridement Size (cm) - Length 9.0 -Post Debridement Size (cm) - Width 6.0 -Post Debridement Size (cm) - Depth 2.0 -Total Square Cm 54.00 -Wound/Ulcer Outcome Not Healed -Ulcer Cleansing Rinsed/ Irrigated with Saline -Foul Odor after Cleansing No -Bioengineered Tissue No -Bleeding Controlled with Pressure -Offloading No -Treatment Response Procedure Tolerated Well [See Physician Procedure note for Specifics] Pain Scale: 0-10 Numeric [Pain] -Is Patient Pain Free? Yes Neurological: Cranial nerves II-XII grossly intact Psych/Mental Status: Normal Affect Debridement Note Post-Debridement Measurements/Treatment WC - Nurse 2 - General Ulcer CM Notes Start: 04/26/19 11:14 Freq: Status: Active Protocol: Activity Type Activity Date Activity User E-Sign Co-Sign Detail Recorded Client Recorded Date Recorded By Document 04/26/19 11:50 MW [id number] 04/26/19 12:07 MW Document 05/10/19 12:23 MW [id number] 05/10/19 12:27 MW 04/26/19 05/10/19 11:50 12:23 Wound Center Nurse 2 #7 Sacral -Time 11:53 12:23 -Correct Patient Yes Yes -Correct Side, Site, Position Yes Yes -Correct Procedure Yes Yes -Procedure Performed Yes Yes -Type of Procedure Debridement Debridement -Clinical Debridement Subcutaneous Subcutaneous -Post Debridement Size (cm) - Length 6.5 8.5 -Post Debridement Size (cm) - Width 14.0 14.0 -Post Debridement Size (cm) - Depth 1.8 2.0 -Total Square Cm 91.00 119.00 -Wound/Ulcer Outcome Not Healed Not Healed -Ulcer Cleansing Rinsed/ Rinsed/ Irrigated with Irrigated with Saline Saline -Foul Odor after Cleansing No No -Bioengineered Tissue No No -Bleeding Controlled with Pressure Pressure -Other UNDERMINING @ 11, 2.5CM -Offloading No No -Treatment Response Procedure Procedure Tolerated Well Tolerated Well #6 R Buttocks -Time 11:53 12:24 -Correct Patient Yes Yes -Correct Side, Site, Position Yes Yes -Correct Procedure Yes Yes -Procedure Performed Yes Yes -Type of Procedure Debridement Debridement -Clinical Debridement Subcutaneous Subcutaneous -Post Debridement Size (cm) - Length 11.5 11.0 -Post Debridement Size (cm) - Width 5.0 5.0 -Post Debridement Size (cm) - Depth 2.0 1.5 -Total Square Cm 57.50 55.00 -Wound/Ulcer Outcome Not Healed Not Healed -Ulcer Cleansing Rinsed/ Rinsed/ Irrigated with Irrigated with Saline Saline -Foul Odor after Cleansing No No -Bioengineered Tissue No No -Bleeding Controlled with Pressure Pressure -Other UNDERMINING @ 12, 2.0CM -Offloading No No -Treatment Response Procedure Procedure Tolerated Well Tolerated Well #5 L Buttocks -Time 11:54 12:24 -Correct Patient Yes Yes -Correct Side, Site, Position Yes Yes -Correct Procedure Yes -Procedure Performed Yes Yes -Type of Procedure Debridement Debridement -Clinical Debridement Subcutaneous Subcutaneous -Post Debridement Size (cm) - Length 10.0 9.0 -Post Debridement Size (cm) - Width 5.5 6.0 -Post Debridement Size (cm) - Depth 2.3 2.0 -Total Square Cm 55.00 54.00 -Wound/Ulcer Outcome Not Healed Not Healed -Ulcer Cleansing Rinsed/ Rinsed/ Irrigated with Irrigated with Saline Saline -Foul Odor after Cleansing No No -Bioengineered Tissue No No -Bleeding Controlled with Pressure Pressure -Other UNDERMINING @ 12, 4.0CM -Offloading No No -Treatment Response Procedure Procedure Tolerated Well Tolerated Well Pain Scale: 0-10 Numeric Is Patient Pain Free? Yes Yes Wound debrided: Sacral Wound Grade/Stage: Stage IV Type of Debridement: Excisional debridement Anesthesia Used: 4% Lidocaine Solution Depth: Down to and including healthy tissue, in the subcutaneous layer Percentage of wound debrided: 100 Instrument Used: 7mm curette Tissue Removed: Slough and devitalized tissue Severity: Fat Layer Exposed Amount of bleeding with debridement: Mild Bleeding Controlled with: Pressure Patient tolerated procedure well - Additional Wound Wound debrided: Right Buttock Wound Grade/Stage: Stage IV Type of Debridement: Excisional debridement Anesthesia Used: 4% Lidocaine Solution Depth: Down to and including healthy tissue, in the subcutaneous layer Percentage of wound debrided: 100 Instrument Used: 7mm curette Tissue Removed: Slough and devitalized tissue Severity: Fat Layer Exposed Amount of bleeding with debridement: Mild Bleeding Controlled with: Pressure Patient tolerated procedure: Patient tolerated procedure well - Additional Wound Wound debrided: Left Buttock Wound Grade/Stage: Stage IV Type of Debridement: Excisional debridement Anesthesia Used: 4% Lidocaine Solution Depth: Down to and including healthy tissue, in the subcutaneous layer Percentage of wound debrided: 100 Instrument Used: 7mm curette Tissue Removed: Slough and devitalized tissue Severity: Fat Layer Exposed Amount of bleeding with debridement: Mild Bleeding Controlled with: Pressure Patient tolerated procedure: Patient tolerated procedure well Assessment/Plan Active Problems Sacral decubitus ulcer, stage IV (Chronic) Decubitus ulcer of right buttock, stage 4 (Chronic) Decubitus ulcer of left buttock, stage 4 (Chronic) Chronic osteomyelitis involving pelvic region and thigh (Chronic) Paraplegia (Chronic) Assessment: Same as above. Plan: Stable Ulcers. No concerns at this time. Sacral ulcer still clustered and Left buttock communicates with sacrum. Debridement done as documented above, procedure well-tolerated. Continue 10 minute Acetic acid soak to all ulcers then calcium alginate/collagen dressing. Due to his chronic osteomyeliis Carlos Manuel will be a good candidate for HBO therapy however, this was held due to his respiratory issues however, he has remained stable since January. He is now open to this. Continue optimal dietary and protein intake. Offloading also recommended. His questions were answered and they were advised to call with any further questions or concerns. Follow up in 1 week. This note was generated with [employer] dictation software. It may contain incorrect words, spelling, and punctuation that were not noted in checking the note before signing. Code Visit 111xxx-113xx: 81084 Oxana subq tissue 20 sq cm/< Add On Codes: 81889 Oxana subq tissue add-on - Refer to clinical panel for additional sq cm debrided.
== END 2019-05-12 23:59 ==
LOC: WC 10:30
PROVIDERS: Family Provider Family Medicine; PCP Family Medicine; Visit Provider Internal Medicine
DX: L89.154 Pressure ulcer of sacral region, stage 4 (principal); L89.314 Pressure ulcer of right buttock, stage 4; G82.20 Paraplegia, unspecified; M86.68 Other chronic osteomyelitis, other site; L89.324 Pressure ulcer of left buttock, stage 4
CPT/HCPCS: 11042; 11045

== ENCOUNTER 2019-06-07 10:45 | Outpatient (RCR) | payer OTHER, SELFPAY ==
[2019-05-13 00:43] VITALS: BP 89/59; PULSE 110; RESP 16; TEMP 37.6
[2019-05-17 11:18] VITALS: BP 100/40; PULSE 96; RESP 18; TEMP 36.6; BMI 21.8
--- NOTE | 2019-05-17 12:00 | PCM.WC.PN ---
(1) Decubitus ulcer of left buttock, stage 4 Status: Chronic Current Visit: Yes Code(s): L89.324 - Pressure ulcer of left buttock, stage 4 (2) Decubitus ulcer of right buttock, stage 4 Status: Chronic Current Visit: Yes Code(s): L89.314 - Pressure ulcer of right buttock, stage 4 (3) Paraplegia Status: Chronic Current Visit: Yes Code(s): G82.20 - Paraplegia, unspecified (4) Sacral decubitus ulcer, stage IV Status: Chronic Current Visit: Yes Code(s): L89.154 - Pressure ulcer of sacral region, stage 4 (5) Chronic osteomyelitis involving pelvic region and thigh Status: Chronic Current Visit: Yes Code(s): M86.659 - Other chronic osteomyelitis, unspecified thigh Type of Wound Date of Service: 05/17/19 Chief Complaint: Non healing decubitus ulcers. History of Wound: Mr. Joyce is a 33yo well known to the wound center but was last seen here over a month ago. Initial sacral ulcer was said to have started in November and Buttock ulcers were noted subsequently. He has had an extensive hospital stay over the last couple of months following a work related injury. Both during his hopsital and long-term stays, he had wound care ranging from surgical debridement, wound vac and collagen use. He was scheduled to be restarted on his wound Vac prior to his discharge from the [place]. He reports significant drainage from the wounds. Also of note is a history of osteomyelitis for which he was on a 6 week IV antibiotic. His however states they were informed that he had developed chronic extensive pelvic area osteomyelitis. He feels well otherwise at this time and denies chills, fever,nausea, vomitting or change in bowel habit. 02/22/2019: Above, he was last seen here over a month ago. Had an extensive hospital stay [facility] due to complications from prior neck surgery. They state that his ulcers have been stable. Been doing the acetic acid soak for 10 minutes and then calcium alginate/collagen dressings. Is any concerns at this time. Progress of Wound: No new concerns. Stable. - Physical Exam Vital Signs Temp Pulse Resp BP 97.8 F 96 18 100/40 L 05/17/19 11:18 05/17/19 11:18 05/17/19 11:18 05/17/19 11:18 General: Alert, Oriented x3, Cooperative, No apparent distress HEENT: Atraumatic, Normocephalic Oral: Moist Mucosa Neck: Supple Lungs: Normal air movement Cardiovascular: Regular rate, Regular Rhythm, Normal S1, Normal S2 Abdomen: Non Tender Extremities: No cyanosis Skin: Ulcer/ Wound Wound Measurements and Assessment WC - Nurse 1 - General Ulcer Measurement Start: 05/17/19 11:18 Freq: Status: Active Protocol: Activity Type Activity Date Activity User E-Sign Co-Sign Detail Recorded Client Recorded Date Recorded By Document 05/17/19 11:18 DL [id number] 05/17/19 11:37 DL 05/17/19 11:18 Wound Center Nurse 1 [Ulcer Assessment] #7 Sacral -Combined with other wound No -Current Size (cm) - Length 8 -Current Size (cm) - Width 15 -Current Size (cm) - Depth 1.6 -Total Square Cm 120 -Date of Last Picture (Recall this 05/17/19 field) -Photo Taken Yes -Epithelialization None Present -Tunneling No -Undermining/Tunneling Yes -Undermining/Tunneling Starts (O' 10 clock) -Undermining/Tunneling Ends (O'clock) 12 -Maximum Distance (cm) 3.6 -Undermining/Tunneling Starts #2 (O' 1 clock) -Undermining/Tunneling Ends #2 (O' 4 clock) -Maximum Distance #2 (cm) 4 -Circular Undermining No -Exudate Amt Medium -Exudate Type Serosanguineous -Wound Margin Thickened -Granulation Amt Medium (34-66%) -Granulation Quality Pale,Red -Slough/Fibrin No -Necrosis Amt None Present (0 %) -Texture (Sheyla-wound Skin Appearance) Assessed, Scarring -Moisture (Sheyla-wound Skin Appearance Assessed ) -Color (Sheyla-wound Skin Appearance) Assessed -Temperature (Sheyla-wound Skin No Abnormality Appearance) (Pt Warm) -Tenderness on Palpation (Sheyla-wound No Skin Appearance) -Ulcer Cleansing soapy water -Foul Odor after Cleansing No #6 R Buttocks -Combined with other wound No -Current Size (cm) - Length 11.2 -Current Size (cm) - Width 4.2 -Current Size (cm) - Depth 1.5 -Total Square Cm 47.04 -Date of Last Picture (Recall this 05/17/19 field) -Photo Taken Yes -Epithelialization None Present -Tunneling No -Undermining/Tunneling Yes -Undermining/Tunneling Starts (O' 1 clock) -Undermining/Tunneling Ends (O'clock) 4 -Maximum Distance (cm) 2 -Circular Undermining No -Exudate Amt Medium -Exudate Type Serosanguineous -Wound Margin Thickened -Granulation Amt Large (67-100%) -Granulation Quality Pale,Red -Slough/Fibrin No -Necrosis Amt None Present (0 %) -Texture (Sheyla-wound Skin Appearance) Assessed, Scarring -Moisture (Sheyla-wound Skin Appearance Assessed ) -Color (Sheyla-wound Skin Appearance) Assessed -Temperature (Sheyla-wound Skin No Abnormality Appearance) (Pt Warm) -Tenderness on Palpation (Sheyla-wound No Skin Appearance) -Ulcer Cleansing soapy water -Foul Odor after Cleansing No #5 L Buttocks -Combined with other wound No -Current Size (cm) - Length 10.3 -Current Size (cm) - Width 5 -Current Size (cm) - Depth 3.2 -Total Square Cm 51.5 -Date of Last Picture (Recall this 05/17/19 field) -Photo Taken Yes -Epithelialization None Present -Tunneling No -Undermining/Tunneling Yes -Undermining/Tunneling Starts (O' 11 clock) -Undermining/Tunneling Ends (O'clock) 5 -Maximum Distance (cm) 2 -Circular Undermining No -Exudate Amt Medium -Exudate Type Serosanguineous -Wound Margin Thickened -Granulation Amt Large (67-100%) -Granulation Quality Pale,Red -Slough/Fibrin No -Necrosis Amt None Present (0 %) -Texture (Sheyla-wound Skin Appearance) Assessed, Scarring -Moisture (Sheyla-wound Skin Appearance Assessed ) -Color (Sheyla-wound Skin Appearance) Assessed -Temperature (Sheyla-wound Skin No Abnormality Appearance) (Pt Warm) -Tenderness on Palpation (Sheyla-wound No Skin Appearance) -Ulcer Cleansing soapy water -Foul Odor after Cleansing No Neurological: Cranial nerves II-XII grossly intact Psych/Mental Status: Normal Affect Debridement Note Wound debrided: Sacral Wound Grade/Stage: Stage IV Type of Debridement: Excisional debridement Anesthesia Used: 4% Lidocaine Solution Depth: Down to and including healthy tissue, in the subcutaneous layer Percentage of wound debrided: 100 Instrument Used: 7mm curette Tissue Removed: Slough and devitalized tissue Severity: Fat Layer Exposed Amount of bleeding with debridement: Mild Bleeding Controlled with: Compression and gauze Patient tolerated procedure well - Additional Wound Wound debrided: Left Buttock Wound Grade/Stage: Stage IV Type of Debridement: Excisional debridement Anesthesia Used: 4% Lidocaine Solution Depth: Down to and including healthy tissue, in the subcutaneous layer Percentage of wound debrided: 100 Instrument Used: 7mm curette Tissue Removed: Slough and devitalized tissue Severity: Fat Layer Exposed Amount of bleeding with debridement: Mild Bleeding Controlled with: Pressure Patient tolerated procedure: Patient tolerated procedure well - Additional Wound Wound debrided: Right Buttock Wound Grade/Stage: Stage IV Type of Debridement: Excisional debridement Anesthesia Used: 4% Lidocaine Solution Depth: Down to and including healthy tissue, in the subcutaneous layer Percentage of wound debrided: 100 Instrument Used: 7mm curette Tissue Removed: Slough and devitalized tissue Severity: Fat Layer Exposed Amount of bleeding with debridement: Mild Bleeding Controlled with: Pressure Patient tolerated procedure: Patient tolerated procedure well Assessment/Plan Active Problems Sacral decubitus ulcer, stage IV (Chronic) Decubitus ulcer of right buttock, stage 4 (Chronic) Decubitus ulcer of left buttock, stage 4 (Chronic) Chronic osteomyelitis involving pelvic region and thigh (Chronic) Paraplegia (Chronic) Assessment: Same as above. Plan: Stable Ulcers. No concerns at this time. Sacral ulcer still clustered and Left buttock communicates with sacrum. Debridement done as documented above, procedure well-tolerated. Continue 10 minute Acetic acid soak to all ulcers then calcium alginate/collagen dressing. Due to his chronic osteomyeliis Carlos Manuel will be a good candidate for HBO therapy however, this was held due to his respiratory issues however, he has remained stable since January. He is now open to this. Continue optimal dietary and protein intake. Offloading also recommended. His questions were answered and they were advised to call with any further questions or concerns. Follow up in 2 weeks per patient preference. This note was generated with [employer] software. It may contain incorrect words, spelling, and punctuation that were not noted in checking the note before signing. 111xxx-113xx: [id number] Oxana subq tissue 20 sq cm/< Add On Codes: 41787 Oxana subq tissue add-on
--- NOTE | 2019-05-17 12:37 | HBO.CON.PC_ITS ---
(1) Decubitus ulcer of left buttock, stage 4 Status: Chronic Current Visit: Yes Code(s): L89.324 - Pressure ulcer of left buttock, stage 4 (2) Decubitus ulcer of right buttock, stage 4 Status: Chronic Current Visit: Yes Code(s): L89.314 - Pressure ulcer of right buttock, stage 4 (3) Paraplegia Status: Chronic Current Visit: Yes Code(s): G82.20 - Paraplegia, unspecified (4) Sacral decubitus ulcer, stage IV Status: Chronic Current Visit: Yes Code(s): L89.154 - Pressure ulcer of sacral region, stage 4 (5) Chronic osteomyelitis involving pelvic region and thigh Status: Chronic Current Visit: Yes Code(s): M86.659 - Other chronic osteomyelitis, unspecified thigh History of Present Illness Date of Service: 05/17/19 Presenting Chief Complaint: Non healing decubitus ulcers. The patient is a 34 year old M who [facility] the possibility of initiating hyperbaric oxygen therapy for treatment of nonhealing sacral ( Stage IV ) ,bilateral buttock decubitus ulcers (stage IV) and chronic osteomyelitis of his pelvic region. Mr. Joyce is paraplegic following an accident. Sacral ulcer was said to have started in October 2017 and bilateral buttock ulcers in December 2017. He had been extensively managed at the [facility] and had management including surgical debridement, 6- week course of antibiotics treatment for osteomyelitis. Over the last couple of months/years, his ulcers have largely been stable however no significant progress reduction in size. HBO had been recommended due to chronicity and chronic pelvic osteomyelitis however, this was held off due to his respiratory issues. Now off trach and has been cleared by his [employer] to undergo HBO therapy. He denies chest or ear pain. He has had no recent hospitalizations. No known history of heart disease. He feels well at this time. Past Medical History Chronic Problems Sacral decubitus ulcer, stage IV (Chronic) Decubitus ulcer of right buttock, stage 4 (Chronic) Decubitus ulcer of left buttock, stage 4 (Chronic) Chronic osteomyelitis involving pelvic region and thigh (Chronic) Paraplegia (Chronic) Allergies/Adverse Reactions: Allergies lidocaine Allergy (Verified 10/12/18 10:43) Unknown Home Medications: Ambulatory Orders Medication Instructions Recorded Sitagliptin Phosphate [Januvia] 100 mg PO DAILY 10/11/17 Baclofen 5 mg PO BID 10/12/18 Diazepam [Valium] 5 mg PO BID 10/12/18 Fentanyl 200 ea TD 10/12/18 Ferrous Sulfate 325 mg PO 10/12/18 Insulin Glargine,Hum.rec.anlog 10 unit SQ 10/12/18 [Lantus Solostar] Insulin Lispro [Humalog KwikPen] unit SQ 10/12/18 Magnesium Oxide [Magnesium] 400 mg PO BID 10/12/18 Melatonin 3 mg PO 10/12/18 Metoclopramide HCl [Reglan] 5 mg PO TID 10/12/18 Oxycodone [Oxyfast] 30 mg PO Q4H PRN 10/12/18 Pregabalin [Lyrica] 50 mg PO BID 10/12/18 Sitagliptin Phosphate [Januvia] 100 mg PO 10/12/18 traZODone [Desyrel] 50 mg PO QHS 10/12/18 Meloxicam 7.5 mg PO BID PRN 05/17/19 Methenamine Hippurate [Hiprex] 1 gm PO BID 05/17/19 Smoking Status: Former smoker Review of Systems Constitutional: Denies: Anorexia, Chills, Fever Eyes: Denies: Blurred vision, Pain, Redness HEENT: Denies: Difficulty Hearing, Difficulty Swallowing Cardiovascular: Denies: Chest Pain, Chest Pressure Respiratory: Denies: Hemoptysis Gastrointestinal: Denies: Abdominal Pain, Hematemesis, Vomiting Skin: Denies: Jaundice - Physical Exam Vital Signs Temp Pulse Resp BP 97.8 F 96 18 100/40 L 05/17/19 11:18 05/17/19 11:18 05/17/19 11:18 05/17/19 11:18 General: Alert, Oriented x3, Cooperative, No apparent distress HEENT: Atraumatic, Normocephalic Oral: Moist Mucosa Neck: Supple Lungs: Clear to auscultation, Normal air movement Cardiovascular: Regular rate, Regular Rhythm, Normal S1, Normal S2 Abdomen: Non Tender Extremities: No cyanosis Skin: Ulcer/ Wound Wound Measurements and Assessment WC - Nurse 1 - General Ulcer Measurement Start: 05/17/19 11:18 Freq: Status: Active Protocol: Activity Type Activity Date Activity User E-Sign Co-Sign Detail Recorded Client Recorded Date Recorded By Document 05/17/19 11:18 PELON [id number] 05/17/19 11:37 DL 05/17/19 11:18 Wound Center Nurse 1 [Ulcer Assessment] #7 Sacral -Combined with other wound No -Current Size (cm) - Length 8 -Current Size (cm) - Width 15 -Current Size (cm) - Depth 1.6 -Total Square Cm 120 -Date of Last Picture (Recall this 05/17/19 field) -Photo Taken Yes -Epithelialization None Present -Tunneling No -Undermining/Tunneling Yes -Undermining/Tunneling Starts (O' 10 clock) -Undermining/Tunneling Ends (O'clock) 12 -Maximum Distance (cm) 3.6 -Undermining/Tunneling Starts #2 (O' 1 clock) -Undermining/Tunneling Ends #2 (O' 4 clock) -Maximum Distance #2 (cm) 4 -Circular Undermining No -Exudate Amt Medium -Exudate Type Serosanguineous -Wound Margin Thickened -Granulation Amt Medium (34-66%) -Granulation Quality Pale,Red -Slough/Fibrin No -Necrosis Amt None Present (0 %) -Texture (Sheyla-wound Skin Appearance) Assessed, Scarring -Moisture (Sheyla-wound Skin Appearance Assessed ) -Color (Sheyla-wound Skin Appearance) Assessed -Temperature (Sheyla-wound Skin No Abnormality Appearance) (Pt Warm) -Tenderness on Palpation (Sheyla-wound No Skin Appearance) -Ulcer Cleansing soapy water -Foul Odor after Cleansing No #6 R Buttocks -Combined with other wound No -Current Size (cm) - Length 11.2 -Current Size (cm) - Width 4.2 -Current Size (cm) - Depth 1.5 -Total Square Cm 47.04 -Date of Last Picture (Recall this 05/17/19 field) -Photo Taken Yes -Epithelialization None Present -Tunneling No -Undermining/Tunneling Yes -Undermining/Tunneling Starts (O' 1 clock) -Undermining/Tunneling Ends (O'clock) 4 -Maximum Distance (cm) 2 -Circular Undermining No -Exudate Amt Medium -Exudate Type Serosanguineous -Wound Margin Thickened -Granulation Amt Large (67-100%) -Granulation Quality Pale,Red -Slough/Fibrin No -Necrosis Amt None Present (0 %) -Texture (Sheyla-wound Skin Appearance) Assessed, Scarring -Moisture (Sheyla-wound Skin Appearance Assessed ) -Color (Sheyla-wound Skin Appearance) Assessed -Temperature (Sheyla-wound Skin No Abnormality Appearance) (Pt Warm) -Tenderness on Palpation (Sheyla-wound No Skin Appearance) -Ulcer Cleansing soapy water -Foul Odor after Cleansing No #5 L Buttocks -Combined with other wound No -Current Size (cm) - Length 10.3 -Current Size (cm) - Width 5 -Current Size (cm) - Depth 3.2 -Total Square Cm 51.5 -Date of Last Picture (Recall this 05/17/19 field) -Photo Taken Yes -Epithelialization None Present -Tunneling No -Undermining/Tunneling Yes -Undermining/Tunneling Starts (O' 11 clock) -Undermining/Tunneling Ends (O'clock) 5 -Maximum Distance (cm) 2 -Circular Undermining No -Exudate Amt Medium -Exudate Type Serosanguineous -Wound Margin Thickened -Granulation Amt Large (67-100%) -Granulation Quality Pale,Red -Slough/Fibrin No -Necrosis Amt None Present (0 %) -Texture (Sheyla-wound Skin Appearance) Assessed, Scarring -Moisture (Sheyla-wound Skin Appearance Assessed ) -Color (Sheyla-wound Skin Appearance) Assessed -Temperature (Sheyla-wound Skin No Abnormality Appearance) (Pt Warm) -Tenderness on Palpation (Sheyla-wound No Skin Appearance) -Ulcer Cleansing soapy water -Foul Odor after Cleansing No WC - Nurse 2 - General Ulcer CM Notes Start: 05/17/19 11:18 Freq: Status: Active Protocol: Activity Type Activity Date Activity User E-Sign Co-Sign Detail Recorded Client Recorded Date Recorded By Document 05/17/19 12:06 MW [id number] 05/17/19 12:16 MW 05/17/19 12:06 Wound Center Nurse 2 [Procedure/Treatment] #7 Sacral -Time 12:09 -Correct Patient Yes -Correct Side, Site, Position Yes -Correct Procedure Yes -Procedure Performed Yes -Type of Procedure Debridement -Clinical Debridement Subcutaneous -Post Debridement Size (cm) - Length 7.5 -Post Debridement Size (cm) - Width 15.0 -Post Debridement Size (cm) - Depth 2.0 -Total Square Cm 112.50 -Wound/Ulcer Outcome Not Healed -Ulcer Cleansing Rinsed/ Irrigated with Saline -Foul Odor after Cleansing No -Bioengineered Tissue No -Bleeding Controlled with Pressure -Offloading No -Treatment Response Procedure Tolerated Well #6 R Buttocks -Time 12:09 -Correct Patient Yes -Correct Side, Site, Position Yes -Correct Procedure Yes -Procedure Performed Yes -Type of Procedure Debridement -Clinical Debridement Subcutaneous -Post Debridement Size (cm) - Length 12.0 -Post Debridement Size (cm) - Width 6.0 -Post Debridement Size (cm) - Depth 1.5 -Total Square Cm 72.00 -Wound/Ulcer Outcome Not Healed -Ulcer Cleansing Rinsed/ Irrigated with Saline -Foul Odor after Cleansing No -Bioengineered Tissue No -Bleeding Controlled with Pressure -Offloading No -Treatment Response Procedure Tolerated Well #5 L Buttocks -Time 12:09 -Correct Patient Yes -Correct Side, Site, Position Yes -Correct Procedure Yes -Procedure Performed Yes -Type of Procedure Debridement -Clinical Debridement Subcutaneous -Post Debridement Size (cm) - Length 11.0 -Post Debridement Size (cm) - Width 5.5 -Post Debridement Size (cm) - Depth 2.8 -Total Square Cm 60.50 -Wound/Ulcer Outcome Not Healed -Ulcer Cleansing Rinsed/ Irrigated with Saline -Foul Odor after Cleansing No -Bioengineered Tissue No -Bleeding Controlled with Pressure -Offloading No -Treatment Response Procedure Tolerated Well [See Physician Procedure note for Specifics] Pain Scale: 0-10 Numeric [Pain] -Is Patient Pain Free? Yes Neurological: Cranial nerves II-XII grossly intact Assessment/Plan Active Problems Sacral decubitus ulcer, stage IV (Chronic) Decubitus ulcer of right buttock, stage 4 (Chronic) Decubitus ulcer of left buttock, stage 4 (Chronic) Chronic osteomyelitis involving pelvic region and thigh (Chronic) Paraplegia (Chronic) GABBI JOYCE is an appropriate candidate for hyperbaric oxygen therapy. Hyperbaric Oxygen Therapy would be an essential adjunct in the resolution and treatment of this patient's presenting problem. This patient has sufficient physiologic and psychological stamina to undergo the rigors of hyperbaric oxygen therapy. He has also been cleared by his [employer] to undergo HBO. Records requested. As such, I recommend the following: Hyperbaric Oxygen Treatments at 2.0 KRISTEN in 100% Oxygen for 90 minutes per treatment, for 40 treatments. I have discussed the possible benefits of hyperbaric oxygen therapy with this patient. I have also presented and described the risks, including: air gas embolism, pneumothorax, central nervous system and pulmonary oxygen toxicity, flash pulmonary edema, hypoglycemia, reversible visual refractive changes, ear and sinus matthew-trauma, and confinement anxiety. The patient has verbalized understanding of these risks, and is still wanting to undergo hyperbaric oxygen therapy. The patient understands the significant time and transportation commitment involved in daily treatments of up to two hours duration and has stated that they are willing to commit to this therapy. - HBOT Diagnosis Chronic Refractory Osteomyelitis (730.1) Recent X - ray, EKG and blood work at the [facility]. Records requested. Wax build up also noted bilaterally. OTC Debrox recommended. revaluate at next visit Office Visits / Consults: [id number] OV L4 Est - HBO Consult.
== END 2019-06-12 23:59 ==
LOC: WC 10:45
PROVIDERS: Family Provider Family Medicine; PCP Family Medicine; Visit Provider Internal Medicine
DX: L89.314 Pressure ulcer of right buttock, stage 4 (principal); L89.324 Pressure ulcer of left buttock, stage 4; G82.20 Paraplegia, unspecified; L89.154 Pressure ulcer of sacral region, stage 4; M86.68 Other chronic osteomyelitis, other site; Z79.899 Other long term (current) drug therapy
CPT/HCPCS: 11042; 11045

== ENCOUNTER 2019-07-12 11:00 | Outpatient (RCR) | payer OTHER, SELFPAY ==
[2019-05-17 11:18] VITALS: BMI 21.8
[2019-06-13 00:34] VITALS: BP 100/40; PULSE 96; RESP 18; TEMP 36.6
[2019-06-14 11:32] VITALS: BP 95/54; PULSE 91; RESP 16; TEMP 36.5; BMI 21.8
--- NOTE | 2019-06-14 12:03 | PCM.WC.PN ---
(1) Chronic osteomyelitis involving pelvic region and thigh Status: Chronic Current Visit: Yes Code(s): M86.659 - Other chronic osteomyelitis, unspecified thigh (2) Decubitus ulcer of left buttock, stage 4 Status: Chronic Current Visit: Yes Code(s): L89.324 - Pressure ulcer of left buttock, stage 4 (3) Decubitus ulcer of right buttock, stage 4 Status: Chronic Current Visit: Yes Code(s): L89.314 - Pressure ulcer of right buttock, stage 4 (4) Paraplegia Status: Chronic Current Visit: Yes Code(s): G82.20 - Paraplegia, unspecified (5) Sacral decubitus ulcer, stage IV Status: Chronic Current Visit: Yes Code(s): L89.154 - Pressure ulcer of sacral region, stage 4 Type of Wound Date of Service: 06/14/19 Chief Complaint: Non healing decubitus ulcers. History of Wound: Mr. Joyce is a 33yo well known to the wound center but was last seen here over a month ago. Initial sacral ulcer was said to have started in November and Buttock ulcers were noted subsequently. He has had an extensive hospital stay over the last couple of months following a work related injury. Both during his [facility] and [facility] stays, he had wound care ranging from surgical debridement, wound vac and collagen use. He was scheduled to be restarted on his wound Vac prior to his discharge from the [facility]. He reports significant drainage from the wounds. Also of note is a history of osteomyelitis for which he was on a 6 week IV antibiotic. His however states they were informed that he had developed chronic extensive pelvic area osteomyelitis. He feels well otherwise at this time and denies chills, fever,nausea, vomitting or change in bowel habit. 02/22/2019: Above, he was last seen here over a month ago. Had an extensive hospital stay [facility] due to complications from prior neck surgery. They state that his ulcers have been stable. Been doing the acetic acid soak for 10 minutes and then calcium alginate/collagen dressings. Is any concerns at this time. Progress of Wound: Increased drainage and skin tear. - Physical Exam Vital Signs Temp Pulse Resp BP 97.7 F L 91 16 95/54 L 06/14/19 11:32 06/14/19 11:32 06/14/19 11:32 06/14/19 11:32 General: Alert, Oriented x3, Cooperative, No apparent distress HEENT: Atraumatic, Normocephalic Oral: Moist Mucosa Neck: Supple Abdomen: Non Tender Extremities: No cyanosis Skin: Ulcer/ Wound Wound Measurements and Assessment WC - Nurse 1 - General Ulcer Measurement Start: 06/14/19 11:32 Freq: Status: Active Protocol: Activity Type Activity Date Activity User E-Sign Co-Sign Detail Recorded Client Recorded Date Recorded By Document 06/14/19 11:32 [facility] [id number] 06/14/19 11:35 [facility] 06/14/19 11:32 Wound Center Nurse 1 [Ulcer Assessment] #7 Sacral -Combined with other wound No -Current Size (cm) - Length 8 -Current Size (cm) - Width 14.6 -Current Size (cm) - Depth 1.2 -Total Square Cm 116.8 -Date of Last Picture (Recall this 06/14/19 field) -Photo Taken Yes -Epithelialization Small 1-33% -Tunneling No -Undermining/Tunneling Yes -Undermining/Tunneling Starts (O' 10 clock) -Undermining/Tunneling Ends (O'clock) 4 -Maximum Distance (cm) 4.1 -Circular Undermining No -Exudate Amt Large -Exudate Type Serosanguineous -Wound Margin Thickened & Rolled Under -Granulation Amt Large (67-100%) -Granulation Quality Pale,Red -Slough/Fibrin Yes -Necrosis Amt Small (1-33%) -Necrotic Tissue Type Adherent Slough -Texture (Sheyla-wound Skin Appearance) Assessed, Scarring -Moisture (Sheyla-wound Skin Appearance Assessed ) -Color (Sheyla-wound Skin Appearance) Assessed -Temperature (Sheyla-wound Skin No Abnormality Appearance) (Pt Warm) -Tenderness on Palpation (Sheyla-wound No Skin Appearance) -Ulcer Cleansing soapy water -Foul Odor after Cleansing No #6 R Buttocks -Combined with other wound No -Current Size (cm) - Length 10.5 -Current Size (cm) - Width 5.5 -Current Size (cm) - Depth 1.6 -Total Square Cm 57.75 -Date of Last Picture (Recall this 06/14/19 field) -Photo Taken Yes -Epithelialization Small 1-33% -Tunneling No -Undermining/Tunneling No -Circular Undermining No -Exudate Amt Medium -Exudate Type Serosanguineous -Wound Margin Distinct, Outline Attached -Granulation Amt Large (67-100%) -Granulation Quality Red -Slough/Fibrin Yes -Necrosis Amt Small (1-33%) -Necrotic Tissue Type Adherent Slough -Texture (Sheyla-wound Skin Appearance) Assessed, Scarring -Moisture (Sheyla-wound Skin Appearance Assessed ) -Color (Sheyla-wound Skin Appearance) Assessed -Temperature (Sheyla-wound Skin No Abnormality Appearance) (Pt Warm) -Tenderness on Palpation (Sheyla-wound No Skin Appearance) -Ulcer Cleansing soapy water -Foul Odor after Cleansing No #5 L Buttocks -Combined with other wound No -Current Size (cm) - Length 9.8 -Current Size (cm) - Width 5.7 -Current Size (cm) - Depth 3.2 -Total Square Cm 55.86 -Date of Last Picture (Recall this 06/14/19 field) -Photo Taken Yes -Epithelialization Small 1-33% -Tunneling No -Undermining/Tunneling No -Circular Undermining No -Exudate Amt Medium -Exudate Type Serosanguineous -Wound Margin Thickened & Rolled Under -Granulation Amt Large (67-100%) -Granulation Quality Pale,Red -Slough/Fibrin Yes -Necrosis Amt Small (1-33%) -Necrotic Tissue Type Adherent Slough -Texture (Sheyla-wound Skin Appearance) Assessed, Scarring -Moisture (Sheyla-wound Skin Appearance Assessed ) -Color (Sheyla-wound Skin Appearance) Assessed -Temperature (Sheyla-wound Skin No Abnormality Appearance) (Pt Warm) -Tenderness on Palpation (Sheyla-wound No Skin Appearance) -Ulcer Cleansing soapy water -Foul Odor after Cleansing No WC - Nurse 2 - General Ulcer CM Notes Start: 06/14/19 11:32 Freq: Status: Active Protocol: Activity Type Activity Date Activity User E-Sign Co-Sign Detail Recorded Client Recorded Date Recorded By Document 06/14/19 11:38 MW [id number] 06/14/19 11:54 MW 06/14/19 11:38 Wound Center Nurse 2 [Procedure/Treatment] #7 Sacral -Time 11:43 -Correct Patient Yes -Correct Side, Site, Position Yes -Correct Procedure Yes -Procedure Performed Yes -Type of Procedure Debridement -Clinical Debridement Subcutaneous -Post Debridement Size (cm) - Length 8.0 -Post Debridement Size (cm) - Width 14.0 -Post Debridement Size (cm) - Depth 2.0 -Total Square Cm 112.00 -Wound/Ulcer Outcome Not Healed -Ulcer Cleansing Rinsed/ Irrigated with Saline -Foul Odor after Cleansing No -Bioengineered Tissue No -Bleeding Controlled with Pressure -Offloading No -Treatment Response Procedure Tolerated Well #6 R Buttocks -Time 11:43 -Correct Patient Yes -Correct Side, Site, Position Yes -Correct Procedure Yes -Procedure Performed Yes -Type of Procedure Debridement -Clinical Debridement Subcutaneous -Post Debridement Size (cm) - Length 10.0 -Post Debridement Size (cm) - Width 6.0 -Post Debridement Size (cm) - Depth 1.6 -Total Square Cm 60.00 -Wound/Ulcer Outcome Not Healed -Ulcer Cleansing Rinsed/ Irrigated with Saline -Foul Odor after Cleansing No -Bioengineered Tissue No -Bleeding Controlled with Pressure -Offloading No -Treatment Response Procedure Tolerated Well #5 L Buttocks -Time 11:44 -Correct Patient Yes -Correct Side, Site, Position Yes -Correct Procedure Yes -Procedure Performed Yes -Type of Procedure Debridement -Clinical Debridement Subcutaneous -Post Debridement Size (cm) - Length 10.0 -Post Debridement Size (cm) - Width 6.5 -Post Debridement Size (cm) - Depth 2.3 -Total Square Cm 65.00 -Wound/Ulcer Outcome Not Healed -Ulcer Cleansing Rinsed/ Irrigated with Saline -Foul Odor after Cleansing No -Bioengineered Tissue No -Bleeding Controlled with Pressure -Offloading No -Treatment Response Procedure Tolerated Well [See Physician Procedure note for Specifics] Pain Scale: 0-10 Numeric [Pain] -Is Patient Pain Free? Yes Neurological: Cranial nerves II-XII grossly intact Psych/Mental Status: Normal Affect Debridement Note Post-Debridement Measurements/Treatment WC - Nurse 2 - General Ulcer CM Notes Start: 06/14/19 11:32 Freq: Status: Active Protocol: Activity Type Activity Date Activity User E-Sign Co-Sign Detail Recorded Client Recorded Date Recorded By Document 06/14/19 11:38 MW [id number] 06/14/19 11:54 MW 06/14/19 11:38 Wound Center Nurse 2 #7 Sacral -Time 11:43 -Correct Patient Yes -Correct Side, Site, Position Yes -Correct Procedure Yes -Procedure Performed Yes -Type of Procedure Debridement -Clinical Debridement Subcutaneous -Post Debridement Size (cm) - Length 8.0 -Post Debridement Size (cm) - Width 14.0 -Post Debridement Size (cm) - Depth 2.0 -Total Square Cm 112.00 -Wound/Ulcer Outcome Not Healed -Ulcer Cleansing Rinsed/ Irrigated with Saline -Foul Odor after Cleansing No -Bioengineered Tissue No -Bleeding Controlled with Pressure -Offloading No -Treatment Response Procedure Tolerated Well #6 R Buttocks -Time 11:43 -Correct Patient Yes -Correct Side, Site, Position Yes -Correct Procedure Yes -Procedure Performed Yes -Type of Procedure Debridement -Clinical Debridement Subcutaneous -Post Debridement Size (cm) - Length 10.0 -Post Debridement Size (cm) - Width 6.0 -Post Debridement Size (cm) - Depth 1.6 -Total Square Cm 60.00 -Wound/Ulcer Outcome Not Healed -Ulcer Cleansing Rinsed/ Irrigated with Saline -Foul Odor after Cleansing No -Bioengineered Tissue No -Bleeding Controlled with Pressure -Offloading No -Treatment Response Procedure Tolerated Well #5 L Buttocks -Time 11:44 -Correct Patient Yes -Correct Side, Site, Position Yes -Correct Procedure Yes -Procedure Performed Yes -Type of Procedure Debridement -Clinical Debridement Subcutaneous -Post Debridement Size (cm) - Length 10.0 -Post Debridement Size (cm) - Width 6.5 -Post Debridement Size (cm) - Depth 2.3 -Total Square Cm 65.00 -Wound/Ulcer Outcome Not Healed -Ulcer Cleansing Rinsed/ Irrigated with Saline -Foul Odor after Cleansing No -Bioengineered Tissue No -Bleeding Controlled with Pressure -Offloading No -Treatment Response Procedure Tolerated Well Pain Scale: 0-10 Numeric Is Patient Pain Free? Yes Wound debrided: Sacral Ulcer Wound Grade/Stage: Stage IV Type of Debridement: Excisional debridement Anesthesia Used: 4% Lidocaine Solution Depth: Down to and including healthy tissue, in the subcutaneous layer Percentage of wound debrided: 100 Instrument Used: 7mm curette Tissue Removed: Slough and devitalized tissue Severity: Fat Layer Exposed Amount of bleeding with debridement: Mild Bleeding Controlled with: Pressure Patient tolerated procedure well - Additional Wound Wound debrided: Left Buttock Wound Grade/Stage: Stage IV Type of Debridement: Excisional debridement Anesthesia Used: 4% Lidocaine Solution Depth: Down to and including healthy tissue, in the subcutaneous layer Percentage of wound debrided: 100 Instrument Used: 7mm curette Tissue Removed: Slough and devitalized tissue Severity: Fat Layer Exposed Amount of bleeding with debridement: Mild Bleeding Controlled with: Pressure Patient tolerated procedure: Patient tolerated procedure well - Additional Wound Wound debrided: Right Buttock Wound Grade/Stage: Stage IV Type of Debridement: Excisional debridement Anesthesia Used: 4% Lidocaine Solution Depth: Down to and including healthy tissue, in the subcutaneous layer Percentage of wound debrided: 100 Instrument Used: 7mm curette Tissue Removed: Slough and devitalized tissue Severity: Fat Layer Exposed Amount of bleeding with debridement: Mild Bleeding Controlled with: Pressure Patient tolerated procedure: Patient tolerated procedure well Assessment/Plan Active Problems Sacral decubitus ulcer, stage IV (Chronic) Decubitus ulcer of right buttock, stage 4 (Chronic) Decubitus ulcer of left buttock, stage 4 (Chronic) Chronic osteomyelitis involving pelvic region and thigh (Chronic) Paraplegia (Chronic) Assessment: Same as above. Plan: Superfiscial skin breakdown ? due to increased draiange. Sacral ulcer still clustered and Left buttock communicates with sacrum. Debridement done as documented above, procedure well-tolerated. Cultures taken due to drainage and breakdown. Continue 10 minute Acetic acid soak to all ulcers then calcium alginate/collagen dressing. Change daily to twice daily depending on drainage. Due to his chronic osteomyeliis Carlos Manuel will be a good candidate for HBO therapy however, this was held due to his respiratory issues however, he has remained stable since January. He is now open to this. Continue optimal dietary and protein intake. Offloading also recommended. His questions were answered and they were advised to call with any further questions or concerns. Follow up in 2 weeks. This note was generated with [email or web address] software. It may contain incorrect words, spelling, and punctuation that were not noted in checking the note before signing. [id number]: [id number] Oxana subq tissue 20 sq cm/< Add On Codes: [id number] Oxana subq tissue add-on - Additional Sq Cm debrided. Please refer to clinical note.
[2019-06-28 11:14] VITALS: BP 89/34; PULSE 80; RESP 18; TEMP 37.4; BMI 21.8
--- NOTE | 2019-06-28 12:26 | PN.PCM_ITS ---
(1) Chronic osteomyelitis involving pelvic region and thigh Status: Chronic Current Visit: Yes Code(s): M86.659 - Other chronic osteomyelitis, unspecified thigh (2) Decubitus ulcer of left buttock, stage 4 Status: Chronic Current Visit: Yes Code(s): L89.324 - Pressure ulcer of left buttock, stage 4 (3) Decubitus ulcer of right buttock, stage 4 Status: Chronic Current Visit: Yes Code(s): L89.314 - Pressure ulcer of right buttock, stage 4 (4) Paraplegia Status: Chronic Current Visit: Yes Code(s): G82.20 - Paraplegia, unspecified (5) Sacral decubitus ulcer, stage IV Status: Chronic Current Visit: Yes Code(s): L89.154 - Pressure ulcer of sacral region, stage 4 Type of Wound Date of Service: 06/28/19 Chief Complaint: Non healing decubitus ulcers. History of Wound: Mr. Joyce is a 33yo well known to the wound center but was last seen here over a month ago. Initial sacral ulcer was said to have started in November and Buttock ulcers were noted subsequently. He has had an extensive hospital stay over the last couple of months following a work related injury. Both during his hopsital and alf stays, he had wound care ranging from surgical debridement, wound vac and collagen use. He was scheduled to be restarted on his wound Vac prior to his discharge from the [place]. He reports significant drainage from the wounds. Also of note is a history of osteomyelitis for which he was on a 6 week IV antibiotic. His however states they were informed that he had developed chronic extensive pelvic area osteomyelitis. He feels well otherwise at this time and denies chills, fever,nausea, vomitting or change in bowel habit. 02/22/2019: Above, he was last seen here over a month ago. Had an extensive hospital stay [facility] [place] [place] due to complications from prior neck surgery. They state that his ulcers have been stable. Been doing the acetic acid soak for 10 minutes and then calcium alginate/collagen dressings. Is any concerns at this time. Progress of Wound: Started on antibiotics per culture and sensitivity. Drainage and skin breakdown has improved. - Physical Exam Vital Signs Temp Pulse Resp BP 99.4 F H 80 18 89/34 L 06/28/19 11:14 06/28/19 11:14 06/28/19 11:14 06/28/19 11:14 General: Alert, Oriented x3, Cooperative, No apparent distress HEENT: Atraumatic, Normocephalic Oral: Moist Mucosa Neck: Supple Lungs: Normal air movement Extremities: No cyanosis Skin: Ulcer/ Wound Wound Measurements and Assessment WC - Nurse 1 - General Ulcer Measurement Start: 06/14/19 11:32 Freq: Status: Active Protocol: Activity Type Activity Date Activity User E-Sign Co-Sign Detail Recorded Client Recorded Date Recorded By Document 06/28/19 11:14 PL [id number] 06/28/19 11:33 PL 06/28/19 11:14 Wound Center Nurse 1 [Ulcer Assessment] #7 Sacral -Combined with other wound No -Current Size (cm) - Length 7 -Current Size (cm) - Width 13 -Current Size (cm) - Depth 3 -Total Square Cm 91 -Photo Taken No -Epithelialization Small 1-33% -Undermining/Tunneling Yes -Undermining/Tunneling Starts (O' 9 clock) -Undermining/Tunneling Ends (O'clock) 2 -Maximum Distance (cm) 3.5 -Circular Undermining No -Exudate Amt Large -Exudate Type Serosanguineous -Granulation Amt Large (67-100%) -Granulation Quality Eighty Four,Red -Slough/Fibrin Yes -Necrosis Amt Small (1-33%) -Necrotic Tissue Type Eschar -Texture (Sheyla-wound Skin Appearance) No Abnormality -Moisture (Sheyla-wound Skin Appearance No Abnormality ) -Color (Sheyla-wound Skin Appearance) No Abnormality -Temperature (Sheyla-wound Skin No Abnormality Appearance) (Pt Warm) -Ulcer Cleansing soap and water -Foul Odor after Cleansing No #6 R Buttocks -Combined with other wound No -Current Size (cm) - Length 8 -Current Size (cm) - Width 5 -Current Size (cm) - Depth 1 -Total Square Cm 40 -Photo Taken No -Epithelialization None Present -Undermining/Tunneling Yes -Undermining/Tunneling Starts (O' 1 clock) -Undermining/Tunneling Ends (O'clock) 3 -Maximum Distance (cm) 1 -Circular Undermining No -Exudate Amt Large -Exudate Type Serosanguineous -Granulation Amt Large (67-100%) -Granulation Quality Eighty Four,Red -Slough/Fibrin Yes -Necrosis Amt Small (1-33%) -Necrotic Tissue Type Adherent Slough -Texture (Sheyla-wound Skin Appearance) No Abnormality -Moisture (Sheyla-wound Skin Appearance No Abnormality ) -Color (Sheyla-wound Skin Appearance) No Abnormality -Temperature (Sheyla-wound Skin No Abnormality Appearance) (Pt Warm) -Tenderness on Palpation (Sheyla-wound No Skin Appearance) -Ulcer Cleansing soap and water #5 L Buttocks -Combined with other wound No -Current Size (cm) - Length 9.5 -Current Size (cm) - Width 5.5 -Current Size (cm) - Depth 3 -Total Square Cm 52.25 -Photo Taken No -Epithelialization None Present -Tunneling Yes -Tunneling Position (O'clock) 12 -Tunneling Distance (cm) 2.5 -Undermining/Tunneling Yes -Undermining/Tunneling Starts (O' 1 clock) -Undermining/Tunneling Ends (O'clock) 3 -Maximum Distance (cm) 1 -Circular Undermining No -Exudate Amt Large -Exudate Type Serosanguineous -Granulation Amt Large (67-100%) -Granulation Quality Eighty Four,Red -Slough/Fibrin Yes -Necrosis Amt Small (1-33%) -Necrotic Tissue Type Adherent Slough -Texture (Sheyla-wound Skin Appearance) No Abnormality -Moisture (Sheyla-wound Skin Appearance No Abnormality ) -Color (Sheyla-wound Skin Appearance) No Abnormality -Temperature (Sheyla-wound Skin No Abnormality Appearance) (Pt Warm) -Tenderness on Palpation (Sheyla-wound No Skin Appearance) -Ulcer Cleansing soap and water WC - Nurse 2 - General Ulcer CM Notes Start: 06/14/19 11:32 Freq: Status: Active Protocol: Activity Type Activity Date Activity User E-Sign Co-Sign Detail Recorded Client Recorded Date Recorded By Document 06/28/19 11:45 MW [id number] 06/28/19 11:53 MW 06/28/19 11:45 Wound Center Nurse 2 [Procedure/Treatment] #7 Sacral -Time 11:45 -Correct Patient Yes -Correct Side, Site, Position Yes -Correct Procedure Yes -Procedure Performed Yes -Type of Procedure Debridement -Clinical Debridement Subcutaneous -Post Debridement Size (cm) - Length 7.5 -Post Debridement Size (cm) - Width 14.5 -Post Debridement Size (cm) - Depth 1.5 -Total Square Cm 108.75 -Wound/Ulcer Outcome Not Healed -Ulcer Cleansing Rinsed/ Irrigated with Saline -Foul Odor after Cleansing No -Bioengineered Tissue No -Bleeding Controlled with Pressure -Offloading No -Treatment Response Procedure Tolerated Well #6 R Buttocks -Time 11:45 -Correct Patient Yes -Correct Side, Site, Position Yes -Correct Procedure Yes -Procedure Performed Yes -Type of Procedure Debridement -Clinical Debridement Subcutaneous -Post Debridement Size (cm) - Length 9.5 -Post Debridement Size (cm) - Width 5.3 -Post Debridement Size (cm) - Depth 1.8 -Total Square Cm 50.35 -Wound/Ulcer Outcome Not Healed -Ulcer Cleansing Rinsed/ Irrigated with Saline -Foul Odor after Cleansing No -Bioengineered Tissue No -Bleeding Controlled with Pressure -Offloading No -Treatment Response Procedure Tolerated Well #5 L Buttocks -Time 11:45 -Correct Patient Yes -Correct Side, Site, Position Yes -Correct Procedure Yes -Procedure Performed Yes -Type of Procedure Debridement -Clinical Debridement Subcutaneous -Post Debridement Size (cm) - Length 9.5 -Post Debridement Size (cm) - Width 6.5 -Post Debridement Size (cm) - Depth 2.5 -Total Square Cm 61.75 -Wound/Ulcer Outcome Not Healed -Ulcer Cleansing Rinsed/ Irrigated with Saline -Foul Odor after Cleansing No -Bioengineered Tissue No -Bleeding Controlled with Pressure -Offloading No -Treatment Response Procedure Tolerated Well [See Physician Procedure note for Specifics] Pain Scale: 0-10 Numeric [Pain] -Is Patient Pain Free? Yes Musculoskeletal: No Muscle Wasting Neurological: Cranial nerves II-XII grossly intact Psych/Mental Status: Normal Affect Debridement Note Post-Debridement Measurements/Treatment WC - Nurse 2 - General Ulcer CM Notes Start: 06/14/19 11:32 Freq: Status: Active Protocol: Activity Type Activity Date Activity User E-Sign Co-Sign Detail Recorded Client Recorded Date Recorded By Document 06/14/19 11:38 MW [id number] 06/14/19 11:54 MW Document 06/28/19 11:45 MW [id number] 06/28/19 11:53 MW 06/14/19 06/28/19 11:38 11:45 Wound Center Nurse 2 #7 Sacral -Time 11:43 11:45 -Correct Patient Yes Yes -Correct Side, Site, Position Yes Yes -Correct Procedure Yes Yes -Procedure Performed Yes Yes -Type of Procedure Debridement Debridement -Clinical Debridement Subcutaneous Subcutaneous -Post Debridement Size (cm) - Length 8.0 7.5 -Post Debridement Size (cm) - Width 14.0 14.5 -Post Debridement Size (cm) - Depth 2.0 1.5 -Total Square Cm 112.00 108.75 -Wound/Ulcer Outcome Not Healed Not Healed -Ulcer Cleansing Rinsed/ Rinsed/ Irrigated with Irrigated with Saline Saline -Foul Odor after Cleansing No No -Bioengineered Tissue No No -Bleeding Controlled with Pressure Pressure -Offloading No No -Treatment Response Procedure Procedure Tolerated Well Tolerated Well #6 R Buttocks -Time 11:43 11:45 -Correct Patient Yes Yes -Correct Side, Site, Position Yes Yes -Correct Procedure Yes Yes -Procedure Performed Yes Yes -Type of Procedure Debridement Debridement -Clinical Debridement Subcutaneous Subcutaneous -Post Debridement Size (cm) - Length 10.0 9.5 -Post Debridement Size (cm) - Width 6.0 5.3 -Post Debridement Size (cm) - Depth 1.6 1.8 -Total Square Cm 60.00 50.35 -Wound/Ulcer Outcome Not Healed Not Healed -Ulcer Cleansing Rinsed/ Rinsed/ Irrigated with Irrigated with Saline Saline -Foul Odor after Cleansing No No -Bioengineered Tissue No No -Bleeding Controlled with Pressure Pressure -Offloading No No -Treatment Response Procedure Procedure Tolerated Well Tolerated Well #5 L Buttocks -Time 11:44 11:45 -Correct Patient Yes Yes -Correct Side, Site, Position Yes Yes -Correct Procedure Yes Yes -Procedure Performed Yes Yes -Type of Procedure Debridement Debridement -Clinical Debridement Subcutaneous Subcutaneous -Post Debridement Size (cm) - Length 10.0 9.5 -Post Debridement Size (cm) - Width 6.5 6.5 -Post Debridement Size (cm) - Depth 2.3 2.5 -Total Square Cm 65.00 61.75 -Wound/Ulcer Outcome Not Healed Not Healed -Ulcer Cleansing Rinsed/ Rinsed/ Irrigated with Irrigated with Saline Saline -Foul Odor after Cleansing No No -Bioengineered Tissue No No -Bleeding Controlled with Pressure Pressure -Offloading No No -Treatment Response Procedure Procedure Tolerated Well Tolerated Well Pain Scale: 0-10 Numeric Is Patient Pain Free? Yes Yes Wound debrided: Sacral Wound Grade/Stage: Stage IV Type of Debridement: Excisional debridement Anesthesia Used: 4% Lidocaine Solution Depth: Down to and including healthy tissue, in the subcutaneous layer Percentage of wound debrided: 100 Instrument Used: 7mm curette Tissue Removed: Slough and devitalized tissue Severity: Fat Layer Exposed Amount of bleeding with debridement: Mild Bleeding Controlled with: Pressure Patient tolerated procedure well - Additional Wound Wound debrided: Left Buttock Wound Grade/Stage: Stage IV Type of Debridement: Excisional debridement Anesthesia Used: 4% Lidocaine Solution Depth: Down to and including healthy tissue, in the subcutaneous layer Percentage of wound debrided: 100 Instrument Used: 7mm curette Tissue Removed: Slough and devitalized tissue Severity: Fat Layer Exposed Amount of bleeding with debridement: Mild Bleeding Controlled with: Pressure Patient tolerated procedure: Patient tolerated procedure well - Additional Wound Wound debrided: Right Buttock Wound Grade/Stage: Stage IV Type of Debridement: Excisional debridement Anesthesia Used: 4% Lidocaine Solution Depth: Down to and including healthy tissue, in the subcutaneous layer Percentage of wound debrided: 100 Instrument Used: 7mm curette Tissue Removed: Slough and devitalized tissue Severity: Fat Layer Exposed Amount of bleeding with debridement: Mild Bleeding Controlled with: Pressure Assessment/Plan Active Problems Sacral decubitus ulcer, stage IV (Chronic) Decubitus ulcer of right buttock, stage 4 (Chronic) Decubitus ulcer of left buttock, stage 4 (Chronic) Chronic osteomyelitis involving pelvic region and thigh (Chronic) Paraplegia (Chronic) Assessment: Same as above. Plan: Ulcers stable. Skin breakdown has improved. Still on antibiotics. Debridement done as documented above, procedure well-tolerated. Continue 10 minute Acetic acid soak to all ulcers then calcium alginate/collagen dressing. Change daily to twice daily depending on drainage. Due to his chronic osteomyeliis Carlos Manuel is be a good candidate for HBO therapy however, this was held due to his respiratory issues however, he has remained stable since January. He is now open to this and has been cleared by his [employer]. Continue optimal dietary and protein intake. Offloading also recommended. His questions were answered and they were advised to call with any further questions or concerns. Follow up in 2 weeks. This note was generated with [employer] software. It may contain incorrect words, spelling, and punctuation that were not noted in checking the note before signing. [id number]: [id number] Oxana subq tissue 20 sq cm/< Add On Codes: [id number] Oxana subq tissue add-on - Additional Sq Cm debrided. Please refer to clinical note.
== END 2019-07-12 23:59 ==
LOC: WC 11:00
PROVIDERS: Family Provider Family Medicine; PCP Family Medicine; Visit Provider Internal Medicine
DX: L89.314 Pressure ulcer of right buttock, stage 4 (principal); L89.324 Pressure ulcer of left buttock, stage 4; M86.68 Other chronic osteomyelitis, other site; L89.154 Pressure ulcer of sacral region, stage 4; G82.20 Paraplegia, unspecified
CPT/HCPCS: 11042; 11045; 87070; 87075; 87077; 87186; 87205

== ENCOUNTER 2019-08-02 11:33 | Outpatient (RCR) | payer OTHER, SELFPAY ==
[2019-06-28 11:14] VITALS: BMI 21.8
[2019-07-13 00:12] VITALS: BP 89/34; PULSE 80; RESP 18; TEMP 37.4
[2019-08-02 11:46] VITALS: BP 88/55; PULSE 73; RESP 18; TEMP 36.2; BMI 21.8
--- NOTE | 2019-08-02 12:57 | PCM.WC.PN ---
(1) Chronic osteomyelitis involving pelvic region and thigh Status: Chronic Current Visit: Yes Code(s): M86.659 - Other chronic osteomyelitis, unspecified thigh (2) Decubitus ulcer of left buttock, stage 4 Status: Chronic Current Visit: Yes Code(s): L89.324 - Pressure ulcer of left buttock, stage 4 (3) Decubitus ulcer of right buttock, stage 4 Status: Chronic Current Visit: Yes Code(s): L89.314 - Pressure ulcer of right buttock, stage 4 (4) Paraplegia Status: Chronic Current Visit: Yes Code(s): G82.20 - Paraplegia, unspecified (5) Sacral decubitus ulcer, stage IV Status: Chronic Current Visit: No Code(s): L89.154 - Pressure ulcer of sacral region, stage 4 Type of Wound Date of Service: 08/02/19 Chief Complaint: Non healing decubitus ulcers. History of Wound: Mr. Joyce is a 33yo well known to the wound center but was last seen here over a month ago. Initial sacral ulcer was said to have started in November and Buttock ulcers were noted subsequently. He has had an extensive hospital stay over the last couple of months following a work related injury. Both during his hopsital and residential stays, he had wound care ranging from surgical debridement, wound vac and collagen use. He was scheduled to be restarted on his wound Vac prior to his discharge from the [place]. He reports significant drainage from the wounds. Also of note is a history of osteomyelitis for which he was on a 6 week IV antibiotic. His however states they were informed that he had developed chronic extensive pelvic area osteomyelitis. He feels well otherwise at this time and denies chills, fever,nausea, vomitting or change in bowel habit. 02/22/2019: Above, he was last seen here over a month ago. Had an extensive hospital stay [facility] due to complications from prior neck surgery. They state that his ulcers have been stable. Been doing the acetic acid soak for 10 minutes and then calcium alginate/collagen dressings. Is any concerns at this time. Progress of Wound: S/P Recent hospital admission with perforated esophagus. Doing well. Currently on a 6 week course of Unasyn. - Physical Exam Vital Signs Temp Pulse Resp BP 97.2 F L 73 18 88/55 L 08/02/19 11:46 08/02/19 11:46 08/02/19 11:46 08/02/19 11:46 General: Alert, Oriented x3, Cooperative, No apparent distress HEENT: Atraumatic, Normocephalic Oral: Moist Mucosa Neck: Supple Lungs: Normal air movement Skin: Ulcer/ Wound Wound Measurements and Assessment WC - Nurse 1 - General Ulcer Measurement Start: 08/02/19 11:46 Freq: Status: Active Protocol: Activity Type Activity Date Activity User E-Sign Co-Sign Detail Recorded Client Recorded Date Recorded By Document 08/02/19 11:46 DL [id number] 08/02/19 12:04 DL 08/02/19 11:46 Wound Center Nurse 1 [Ulcer Assessment] #7 Sacral -Current Size (cm) - Length 7.8 -Current Size (cm) - Width 15 -Current Size (cm) - Depth 1.5 -Total Square Cm 117.0 -Photo Taken Yes -Undermining/Tunneling Starts (O' 10 clock) -Undermining/Tunneling Ends (O'clock) 2 -Maximum Distance (cm) 3 -Circular Undermining No -Exudate Amt Medium -Exudate Type Serosanguineous -Wound Margin Thickened -Granulation Amt Large (67-100%) -Granulation Quality Red -Slough/Fibrin Yes -Necrosis Amt Small (1-33%) -Necrotic Tissue Type Adherent Slough -Structure Exposed N/A -Texture (Sheyla-wound Skin Appearance) Scarring -Moisture (Sheyla-wound Skin Appearance No Abnormality ) -Color (Sheyla-wound Skin Appearance) Rubor -Temperature (Sheyla-wound Skin No Abnormality Appearance) (Pt Warm) -Tenderness on Palpation (Sheyla-wound No Skin Appearance) -Ulcer Cleansing Wound Cleanser -Foul Odor after Cleansing No #6 R Buttocks -Current Size (cm) - Length 9 -Current Size (cm) - Width 4.7 -Current Size (cm) - Depth 1.3 -Total Square Cm 42.3 -Photo Taken Yes -Undermining/Tunneling Starts (O' 12 clock) -Undermining/Tunneling Ends (O'clock) 1 -Maximum Distance (cm) 1.3 -Exudate Amt Medium -Exudate Type Serosanguineous -Wound Margin Distinct, Outline Attached -Granulation Amt Large (67-100%) -Granulation Quality [place],Red -Necrosis Amt Small (1-33%) -Necrotic Tissue Type Adherent Slough -Structure Exposed N/A -Texture (Sheyla-wound Skin Appearance) Scarring -Moisture (Sheyla-wound Skin Appearance No Abnormality ) -Color (Sheyla-wound Skin Appearance) Rubor -Ulcer Cleansing Wound Cleanser -Foul Odor after Cleansing No -Anesthetic Used 4% Lidocaine Solution #5 L Buttocks -Current Size (cm) - Length 7 -Current Size (cm) - Width 7 -Current Size (cm) - Depth 1.7 -Total Square Cm 49 -Photo Taken Yes -Undermining/Tunneling Starts (O' 12 clock) -Undermining/Tunneling Ends (O'clock) 6 -Maximum Distance (cm) 1.3 -Exudate Amt Medium -Exudate Type Serosanguineous -Wound Margin Distinct, Outline Attached -Granulation Amt Large (67-100%) -Granulation Quality Flow[place]ree,Red -Necrosis Amt Small (1-33%) -Necrotic Tissue Type Adherent Slough -Structure Exposed N/A -Texture (Sheyla-wound Skin Appearance) Scarring -Moisture (Sheyla-wound Skin Appearance No Abnormality ) -Color (Sheyla-wound Skin Appearance) Rubor -Temperature (Sheyla-wound Skin No Abnormality Appearance) (Pt Warm) -Tenderness on Palpation (Sheyla-wound No Skin Appearance) -Ulcer Cleansing Wound Cleanser -Foul Odor after Cleansing No WC - Nurse 2 - General Ulcer CM Notes Start: 08/02/19 11:46 Freq: Status: Active Protocol: Activity Type Activity Date Activity User E-Sign Co-Sign Detail Recorded Client Recorded Date Recorded By Document 08/02/19 12:21 MW [id number] 08/02/19 12:25 MW 08/02/19 12:21 Wound Center Nurse 2 [Procedure/Treatment] #7 Sacral -Time 12:21 -Correct Patient Yes -Correct Side, Site, Position Yes -Correct Procedure Yes -Procedure Performed Yes -Type of Procedure Debridement -Clinical Debridement Subcutaneous -Post Debridement Size (cm) - Length 7.0 -Post Debridement Size (cm) - Width 14.0 -Post Debridement Size (cm) - Depth 1.5 -Total Square Cm 98.00 -Wound/Ulcer Outcome Not Healed -Ulcer Cleansing Rinsed/ Irrigated with Saline -Foul Odor after Cleansing No -Bioengineered Tissue No -Bleeding Controlled with Pressure -Offloading No -Treatment Response Procedure Tolerated Well #6 R Buttocks -Time 12:21 -Correct Patient Yes -Correct Side, Site, Position Yes -Correct Procedure Yes -Procedure Performed Yes -Type of Procedure Debridement -Clinical Debridement Subcutaneous -Post Debridement Size (cm) - Length 8.5 -Post Debridement Size (cm) - Width 5.0 -Post Debridement Size (cm) - Depth 1.5 -Total Square Cm 42.50 -Wound/Ulcer Outcome Not Healed -Ulcer Cleansing Rinsed/ Irrigated with Saline -Foul Odor after Cleansing No -Bioengineered Tissue No -Bleeding Controlled with Pressure -Offloading No -Treatment Response Procedure Tolerated Well #5 L Buttocks -Time 12:21 -Correct Patient Yes -Correct Side, Site, Position Yes -Correct Procedure Yes -Procedure Performed Yes -Type of Procedure Debridement -Clinical Debridement Subcutaneous -Post Debridement Size (cm) - Length 8.0 -Post Debridement Size (cm) - Width 6.0 -Post Debridement Size (cm) - Depth 2.3 -Total Square Cm 48.00 -Wound/Ulcer Outcome Not Healed -Ulcer Cleansing Rinsed/ Irrigated with Saline -Foul Odor after Cleansing No -Bioengineered Tissue No -Bleeding Controlled with Pressure -Offloading No -Treatment Response Procedure Tolerated Well [See Physician Procedure note for Specifics] Pain Scale: 0-10 Numeric [Pain] -Is Patient Pain Free? Yes Musculoskeletal: No Muscle Wasting Neurological: Cranial nerves II-XII grossly intact Psych/Mental Status: Normal Affect Debridement Note Post-Debridement Measurements/Treatment WC - Nurse 2 - General Ulcer CM Notes Start: 08/02/19 11:46 Freq: Status: Active Protocol: Activity Type Activity Date Activity User E-Sign Co-Sign Detail Recorded Client Recorded Date Recorded By Document 08/02/19 12:21 MW [id number] 08/02/19 12:25 MW 08/02/19 12:21 Wound Center Nurse 2 #7 Sacral -Time 12:21 -Correct Patient Yes -Correct Side, Site, Position Yes -Correct Procedure Yes -Procedure Performed Yes -Type of Procedure Debridement -Clinical Debridement Subcutaneous -Post Debridement Size (cm) - Length 7.0 -Post Debridement Size (cm) - Width 14.0 -Post Debridement Size (cm) - Depth 1.5 -Total Square Cm 98.00 -Wound/Ulcer Outcome Not Healed -Ulcer Cleansing Rinsed/ Irrigated with Saline -Foul Odor after Cleansing No -Bioengineered Tissue No -Bleeding Controlled with Pressure -Offloading No -Treatment Response Procedure Tolerated Well #6 R Buttocks -Time 12:21 -Correct Patient Yes -Correct Side, Site, Position Yes -Correct Procedure Yes -Procedure Performed Yes -Type of Procedure Debridement -Clinical Debridement Subcutaneous -Post Debridement Size (cm) - Length 8.5 -Post Debridement Size (cm) - Width 5.0 -Post Debridement Size (cm) - Depth 1.5 -Total Square Cm 42.50 -Wound/Ulcer Outcome Not Healed -Ulcer Cleansing Rinsed/ Irrigated with Saline -Foul Odor after Cleansing No -Bioengineered Tissue No -Bleeding Controlled with Pressure -Offloading No -Treatment Response Procedure Tolerated Well #5 L Buttocks -Time 12:21 -Correct Patient Yes -Correct Side, Site, Position Yes -Correct Procedure Yes -Procedure Performed Yes -Type of Procedure Debridement -Clinical Debridement Subcutaneous -Post Debridement Size (cm) - Length 8.0 -Post Debridement Size (cm) - Width 6.0 -Post Debridement Size (cm) - Depth 2.3 -Total Square Cm 48.00 -Wound/Ulcer Outcome Not Healed -Ulcer Cleansing Rinsed/ Irrigated with Saline -Foul Odor after Cleansing No -Bioengineered Tissue No -Bleeding Controlled with Pressure -Offloading No -Treatment Response Procedure Tolerated Well Pain Scale: 0-10 Numeric Is Patient Pain Free? Yes Wound debrided: Sacral Wound Grade/Stage: Stage IV Type of Debridement: Excisional debridement Anesthesia Used: 4% Lidocaine Solution Depth: Down to and including healthy tissue, in the subcutaneous layer Percentage of wound debrided: 100 Instrument Used: 5mm curette Tissue Removed: Slough and devitalized tissue Severity: Fat Layer Exposed Amount of bleeding with debridement: Mild Bleeding Controlled with: Pressure Patient tolerated procedure well - Additional Wound Wound debrided: Left Buttock Wound Grade/Stage: Stage IV Type of Debridement: Excisional debridement Anesthesia Used: 4% Lidocaine Solution Depth: Down to and including healthy tissue, in the subcutaneous layer Percentage of wound debrided: 100 Instrument Used: 5mm curette Tissue Removed: Slough and devitalized tissue Severity: Fat Layer Exposed Amount of bleeding with debridement: Mild Bleeding Controlled with: Pressure Patient tolerated procedure: Patient tolerated procedure well - Additional Wound Wound debrided: Right Buttock Wound Grade/Stage: Stage IV Type of Debridement: Excisional debridement Anesthesia Used: 4% Lidocaine Solution Depth: Down to and including healthy tissue, in the subcutaneous layer Percentage of wound debrided: 100 Instrument Used: 5mm curette Tissue Removed: Slough and devitalized tissue Severity: Fat Layer Exposed Amount of bleeding with debridement: Mild Bleeding Controlled with: Pressure Patient tolerated procedure: Patient tolerated procedure well Assessment/Plan Active Problems Decubitus ulcer of right buttock, stage 4 (Chronic) Decubitus ulcer of left buttock, stage 4 (Chronic) Chronic osteomyelitis involving pelvic region and thigh (Chronic) Paraplegia (Chronic) Assessment: Same as above. Plan: Stable ulcers. Debridement done as documented above, procedure well-tolerated. Continue 10 minute Acetic acid soak to all ulcers then calcium alginate/collagen dressing. Change daily to twice daily depending on drainage. Due to his chronic osteomyeliis Carlos Manuel is a good candidate for HBO therapy however, this was held due to his respiratory issues. He has remained stable since January. He is now open to this and has been cleared by his [employer]. Continue optimal dietary and protein intake. Offloading also recommended. His questions were answered and they were advised to call with any further questions or concerns. Follow up in 2 weeks. This note was generated with [employer] dictation software. It may contain incorrect words, spelling, and punctuation that were not noted in checking the note before signing. [id number]: [id number] Oxana subq tissue 20 sq cm/< Add On Codes: 18814 Oxana subq tissue add-on - Additional square centimeter debrided, please refer to clinical note.
== END 2019-08-12 23:59 ==
LOC: WC 11:33
PROVIDERS: Family Provider Family Medicine; PCP Family Medicine; Visit Provider Internal Medicine
DX: L89.324 Pressure ulcer of left buttock, stage 4 (principal); L89.314 Pressure ulcer of right buttock, stage 4; G82.20 Paraplegia, unspecified; L89.154 Pressure ulcer of sacral region, stage 4; M86.68 Other chronic osteomyelitis, other site
CPT/HCPCS: 11042; 11045; 99213; G0463

== ENCOUNTER 2019-09-11 08:30 | Outpatient (RCR) | payer OTHER, SELFPAY ==
[2019-08-13 00:24] VITALS: BP 88/55; PULSE 73; RESP 18; TEMP 36.2
[2019-08-16 11:30] VITALS: BP 98/62; PULSE 99; RESP 18; TEMP 36.8; BMI 21.8
--- NOTE | 2019-08-16 12:32 | PN.PCM_ITS ---
(1) Chronic osteomyelitis involving pelvic region and thigh Status: Chronic Current Visit: Yes Code(s): M86.659 - Other chronic osteomyelitis, unspecified thigh (2) Decubitus ulcer of left buttock, stage 4 Status: Chronic Current Visit: Yes Code(s): L89.324 - Pressure ulcer of left buttock, stage 4 (3) Decubitus ulcer of right buttock, stage 4 Status: Chronic Current Visit: Yes Code(s): L89.314 - Pressure ulcer of right buttock, stage 4 (4) Paraplegia Status: Chronic Current Visit: Yes Code(s): G82.20 - Paraplegia, unspecified (5) Sacral decubitus ulcer, stage IV Status: Chronic Current Visit: Yes Code(s): L89.154 - Pressure ulcer of sacral region, stage 4 Type of Wound Date of Service: 08/16/19 Chief Complaint: Non healing decubitus ulcers. History of Wound: Mr. Joyce is a 33yo well known to the wound center but was last seen here over a month ago. Initial sacral ulcer was said to have started in November and Buttock ulcers were noted subsequently. He has had an extensive hospital stay over the last couple of months following a work related injury. Both during his hopsital and intermediate stays, he had wound care ranging from surgical debridement, wound vac and collagen use. He was scheduled to be restarted on his wound Vac prior to his discharge from the [place]. He reports significant drainage from the wounds. Also of note is a history of osteomyelitis for which he was on a 6 week IV antibiotic. His however states they were informed that he had developed chronic extensive pelvic area osteomyelitis. He feels well otherwise at this time and denies chills, fever,nausea, vomitting or change in bowel habit. 02/22/2019: Above, he was last seen here over a month ago. Had an extensive hospital stay [facility] due to complications from prior neck surgery. They state that his ulcers have been stable. Been doing the acetic acid soak for 10 minutes and then calcium alginate/collagen dressings. Is any concerns at this time. Progress of Wound: No new concerns. HBO approval underway. - Physical Exam Vital Signs Temp Pulse Resp BP 98.3 F 99 18 98/62 08/16/19 11:30 08/16/19 11:30 08/16/19 11:30 08/16/19 11:30 General: Alert, Oriented x3, Cooperative, No apparent distress HEENT: Atraumatic, Normocephalic Oral: Moist Mucosa Neck: Supple Lungs: Normal air movement Abdomen: Non Tender Skin: Ulcer/ Wound Wound Measurements and Assessment WC - Nurse 1 - General Ulcer Measurement Start: 08/16/19 11:30 Freq: Status: Active Protocol: Activity Type Activity Date Activity User E-Sign Co-Sign Detail Recorded Client Recorded Date Recorded By Document 08/16/19 11:30 [facility] [id number] 08/16/19 11:42 [facility] 08/16/19 11:30 Wound Center Nurse 1 [Ulcer Assessment] #7 Sacral -Combined with other wound No -Current Size (cm) - Length 7.7 -Current Size (cm) - Width 14 -Current Size (cm) - Depth 1.3 -Total Square Cm 107.8 -Epithelialization None Present -Tunneling No -Undermining/Tunneling Yes -Undermining/Tunneling Starts (O' 10 clock) -Undermining/Tunneling Ends (O'clock) 11 -Maximum Distance (cm) 3.5 -Undermining/Tunneling Starts #2 (O' 1 clock) -Undermining/Tunneling Ends #2 (O' 3 clock) -Maximum Distance #2 (cm) 2.8 -Circular Undermining No -Exudate Amt Medium -Exudate Type Serosanguineous -Wound Margin Thickened & Rolled Under -Granulation Amt Large (67-100%) -Granulation Quality N/A,Pale,Red -Slough/Fibrin Yes -Necrosis Amt Small (1-33%) -Necrotic Tissue Type Adherent Slough -Texture (Sheyla-wound Skin Appearance) Assessed, Scarring -Moisture (Sheyla-wound Skin Appearance Assessed ) -Color (Sheyla-wound Skin Appearance) Assessed -Temperature (Sheyla-wound Skin No Abnormality Appearance) (Pt Warm) -Tenderness on Palpation (Sheyla-wound No Skin Appearance) -Ulcer Cleansing soapy water -Foul Odor after Cleansing No #6 R Buttocks -Combined with other wound No -Current Size (cm) - Length 10 -Current Size (cm) - Width 6 -Current Size (cm) - Depth 1 -Total Square Cm 60 -Photo Taken No -Epithelialization None Present -Tunneling No -Undermining/Tunneling No -Circular Undermining No -Exudate Amt Medium -Exudate Type Serosanguineous -Wound Margin Thickened & Rolled Under -Granulation Amt Large (67-100%) -Granulation Quality Pale,Red -Slough/Fibrin Yes -Necrosis Amt Small (1-33%) -Necrotic Tissue Type Adherent Slough -Texture (Sheyla-wound Skin Appearance) Assessed, Scarring -Moisture (Sheyla-wound Skin Appearance Assessed, ) Maceration -Color (Sheyla-wound Skin Appearance) Assessed -Temperature (Sheyla-wound Skin No Abnormality Appearance) (Pt Warm) -Tenderness on Palpation (Sheyla-wound No Skin Appearance) -Ulcer Cleansing soapy water -Foul Odor after Cleansing No #5 L Buttocks -Combined with other wound No -Current Size (cm) - Length 10 -Current Size (cm) - Width 5.8 -Current Size (cm) - Depth 3.4 -Total Square Cm 58.0 -Photo Taken No -Tunneling Yes -Tunneling Position (O'clock) 1 -Tunneling Distance (cm) 2.3 -Undermining/Tunneling No -Circular Undermining No -Exudate Amt Medium -Exudate Type Serosanguineous -Wound Margin Thickened & Rolled Under -Granulation Amt Large (67-100%) -Granulation Quality Pale,Red -Slough/Fibrin Yes -Necrosis Amt Small (1-33%) -Necrotic Tissue Type Adherent Slough -Texture (Sheyla-wound Skin Appearance) Assessed, Scarring -Moisture (Sheyla-wound Skin Appearance Assessed, ) Maceration -Color (Sheyla-wound Skin Appearance) Assessed,Palor -Temperature (Sheyla-wound Skin No Abnormality Appearance) (Pt Warm) -Tenderness on Palpation (Sheyla-wound No Skin Appearance) -Ulcer Cleansing soapy water -Foul Odor after Cleansing No WC - Nurse 2 - General Ulcer CM Notes Start: 08/16/19 11:30 Freq: Status: Active Protocol: Activity Type Activity Date Activity User E-Sign Co-Sign Detail Recorded Client Recorded Date Recorded By Document 08/16/19 12:07 MW [id number] 08/16/19 12:11 MW 08/16/19 12:07 Wound Center Nurse 2 [Procedure/Treatment] #7 Sacral -Time 12:07 -Correct Patient Yes -Correct Side, Site, Position Yes -Correct Procedure Yes -Procedure Performed Yes -Type of Procedure Debridement -Clinical Debridement Subcutaneous -Post Debridement Size (cm) - Length 7.0 -Post Debridement Size (cm) - Width 14.5 -Post Debridement Size (cm) - Depth 1.5 -Total Square Cm 101.50 -Wound/Ulcer Outcome Not Healed -Ulcer Cleansing Rinsed/ Irrigated with Saline -Foul Odor after Cleansing No -Bioengineered Tissue No -Bleeding Controlled with Pressure -Offloading No -Treatment Response Procedure Tolerated Well #6 R Buttocks -Time 12:07 -Correct Patient Yes -Correct Side, Site, Position Yes -Correct Procedure Yes -Procedure Performed Yes -Type of Procedure Debridement -Clinical Debridement Subcutaneous -Post Debridement Size (cm) - Length 8.5 -Post Debridement Size (cm) - Width 6.0 -Post Debridement Size (cm) - Depth 1.4 -Total Square Cm 51.00 -Wound/Ulcer Outcome Not Healed -Ulcer Cleansing Rinsed/ Irrigated with Saline -Foul Odor after Cleansing No -Bioengineered Tissue No -Bleeding Controlled with Pressure -Offloading No -Treatment Response Procedure Tolerated Well #5 L Buttocks -Time 12:08 -Correct Patient Yes -Correct Side, Site, Position Yes -Correct Procedure Yes -Procedure Performed Yes -Type of Procedure Debridement -Clinical Debridement Subcutaneous -Post Debridement Size (cm) - Length 9.5 -Post Debridement Size (cm) - Width 5.5 -Post Debridement Size (cm) - Depth 2.3 -Total Square Cm 52.25 -Wound/Ulcer Outcome Not Healed -Ulcer Cleansing Rinsed/ Irrigated with Saline -Foul Odor after Cleansing No -Bioengineered Tissue No -Bleeding Controlled with Pressure -Offloading No -Treatment Response Procedure Tolerated Well [See Physician Procedure note for Specifics] Pain Scale: 0-10 Numeric [Pain] -Is Patient Pain Free? Yes Musculoskeletal: No Muscle Wasting Neurological: Cranial nerves II-XII grossly intact Psych/Mental Status: Normal Affect Debridement Note Post-Debridement Measurements/Treatment WC - Nurse 2 - General Ulcer CM Notes Start: 08/16/19 11:30 Freq: Status: Active Protocol: Activity Type Activity Date Activity User E-Sign Co-Sign Detail Recorded Client Recorded Date Recorded By Document 08/16/19 12:07 MW [id number] 08/16/19 12:11 MW 08/16/19 12:07 Wound Center Nurse 2 #7 Sacral -Time 12:07 -Correct Patient Yes -Correct Side, Site, Position Yes -Correct Procedure Yes -Procedure Performed Yes -Type of Procedure Debridement -Clinical Debridement Subcutaneous -Post Debridement Size (cm) - Length 7.0 -Post Debridement Size (cm) - Width 14.5 -Post Debridement Size (cm) - Depth 1.5 -Total Square Cm 101.50 -Wound/Ulcer Outcome Not Healed -Ulcer Cleansing Rinsed/ Irrigated with Saline -Foul Odor after Cleansing No -Bioengineered Tissue No -Bleeding Controlled with Pressure -Offloading No -Treatment Response Procedure Tolerated Well #6 R Buttocks -Time 12:07 -Correct Patient Yes -Correct Side, Site, Position Yes -Correct Procedure Yes -Procedure Performed Yes -Type of Procedure Debridement -Clinical Debridement Subcutaneous -Post Debridement Size (cm) - Length 8.5 -Post Debridement Size (cm) - Width 6.0 -Post Debridement Size (cm) - Depth 1.4 -Total Square Cm 51.00 -Wound/Ulcer Outcome Not Healed -Ulcer Cleansing Rinsed/ Irrigated with Saline -Foul Odor after Cleansing No -Bioengineered Tissue No -Bleeding Controlled with Pressure -Offloading No -Treatment Response Procedure Tolerated Well #5 L Buttocks -Time 12:08 -Correct Patient Yes -Correct Side, Site, Position Yes -Correct Procedure Yes -Procedure Performed Yes -Type of Procedure Debridement -Clinical Debridement Subcutaneous -Post Debridement Size (cm) - Length 9.5 -Post Debridement Size (cm) - Width 5.5 -Post Debridement Size (cm) - Depth 2.3 -Total Square Cm 52.25 -Wound/Ulcer Outcome Not Healed -Ulcer Cleansing Rinsed/ Irrigated with Saline -Foul Odor after Cleansing No -Bioengineered Tissue No -Bleeding Controlled with Pressure -Offloading No -Treatment Response Procedure Tolerated Well Pain Scale: 0-10 Numeric Is Patient Pain Free? Yes Wound debrided: Sacral Wound Grade/Stage: Stage IV Type of Debridement: Excisional debridement Anesthesia Used: 4% Lidocaine Solution Depth: Down to and including healthy tissue, in the subcutaneous layer Percentage of wound debrided: 100 Instrument Used: 7mm curette Tissue Removed: Slough and devitalized tissue Severity: Fat Layer Exposed Amount of bleeding with debridement: Mild Bleeding Controlled with: Pressure Patient tolerated procedure well - Additional Wound Wound debrided: Right Buttock Wound Grade/Stage: Stage IV Type of Debridement: Excisional debridement Anesthesia Used: 4% Lidocaine Solution Depth: Down to and including healthy tissue, in the subcutaneous layer Percentage of wound debrided: 100 Instrument Used: 7mm curette Tissue Removed: Slough and devitalized tissue Severity: Fat Layer Exposed Amount of bleeding with debridement: Mild Bleeding Controlled with: Pressure Patient tolerated procedure: Patient tolerated procedure well - Additional Wound Wound debrided: Left Buttock Wound Grade/Stage: Stage IV Type of Debridement: Excisional debridement Anesthesia Used: 4% Lidocaine Solution Depth: Down to and including healthy tissue, in the subcutaneous layer Percentage of wound debrided: 100 Instrument Used: 7mm curette Tissue Removed: Slough and devitalized tissue Severity: Fat Layer Exposed Amount of bleeding with debridement: Mild Bleeding Controlled with: Pressure Patient tolerated procedure: Patient tolerated procedure well Assessment/Plan Active Problems Sacral decubitus ulcer, stage IV (Chronic) Decubitus ulcer of right buttock, stage 4 (Chronic) Decubitus ulcer of left buttock, stage 4 (Chronic) Chronic osteomyelitis involving pelvic region and thigh (Chronic) Paraplegia (Chronic) Assessment: Same as above. Plan: Stable ulcers. Debridement done as documented above, procedure well-tolerated. Continue 10 minute Acetic acid soak to all ulcers then calcium alginate/collagen dressing. Change daily to twice daily depending on drainage. Due to his chronic osteomyeliis Carlos Manuel is a good candidate for HBO therapy however, this was held due to his respiratory issues. He has remained stable since January. He is now open to this and has been cleared by his [employer]. Approval is underway. Continue optimal dietary and protein intake. Offloading also recommended. His questions were answered and they were advised to call with any further questions or concerns. Follow up in 2 weeks. This note was generated with [employer] software. It may contain incorrect words, spelling, and punctuation that were not noted in checking the note before signing. [id number]: [id number] Oxana subq tissue 20 sq cm/< Add On Codes: [id number] Oxana subq tissue add-on - Additional Sq Cm debrided. Please refer to clinical note.
--- NOTE | 2019-08-16 12:55 | RAD_ITS ---
STUDY: X-RAY CHEST REASON FOR EXAM: Male, 34 years old. CHRONIC OSTEOMYELITIS, PRE HYPERBARIC, NO CURRENT CHEST COMPLAINTS TECHNIQUE: PA and lateral views of the chest. COMPARISON: None. FINDINGS: Minimal increased linear markings at the left lung base suggestive overlying atelectasis and/or scarring. There is no demonstrated pleural abnormality. Normal size heart. Normal mediastinum and lesly. Normal visualized pulmonary arteries. Normal visualized aortic arch and descending thoracic aorta. Normal visualized thoracic spine. Prior laminectomy and fusion of the lower cervical spine. There is no demonstrated abnormality of the visualized soft tissue structures of the upper abdomen. RAD/Chest PA and Lateral IMPRESSION: Minimal increased linear markings at the left lung base suggestive of linear atelectasis and/or scarring. Electronically Signed: Bryant Swan, at 13:24 EDT , Service support ,
[2019-08-30 10:42] VITALS: BP 100/53; PULSE 105; RESP 18; TEMP 36.9; BMI 21.8
--- NOTE | 2019-08-30 11:48 | PCM.WC.PN ---
(1) Chronic osteomyelitis involving pelvic region and thigh Status: Chronic Current Visit: Yes Code(s): M86.659 - Other chronic osteomyelitis, unspecified thigh (2) Decubitus ulcer of left buttock, stage 4 Status: Chronic Current Visit: Yes Code(s): L89.324 - Pressure ulcer of left buttock, stage 4 (3) Decubitus ulcer of right buttock, stage 4 Status: Chronic Current Visit: Yes Code(s): L89.314 - Pressure ulcer of right buttock, stage 4 (4) Paraplegia Status: Chronic Current Visit: Yes Code(s): G82.20 - Paraplegia, unspecified (5) Sacral decubitus ulcer, stage IV Status: Chronic Current Visit: Yes Code(s): L89.154 - Pressure ulcer of sacral region, stage 4 Type of Wound Date of Service: 08/30/19 Chief Complaint: Non healing decubitus ulcers. History of Wound: Mr. Joyce is a 33yo well known to the wound center but was last seen here over a month ago. Initial sacral ulcer was said to have started in November and Buttock ulcers were noted subsequently. He has had an extensive hospital stay over the last couple of months following a work related injury. Both during his hopsital and senior care stays, he had wound care ranging from surgical debridement, wound vac and collagen use. He was scheduled to be restarted on his wound Vac prior to his discharge from the [place]. He reports significant drainage from the wounds. Also of note is a history of osteomyelitis for which he was on a 6 week IV antibiotic. His however states they were informed that he had developed chronic extensive pelvic area osteomyelitis. He feels well otherwise at this time and denies chills, fever,nausea, vomitting or change in bowel habit. 02/22/2019: Above, he was last seen here over a month ago. Had an extensive hospital stay [facility] due to complications from prior neck surgery. They state that his ulcers have been stable. Been doing the acetic acid soak for 10 minutes and then calcium alginate/collagen dressings. Is any concerns at this time. Progress of Wound: No new concerns. HBO approval underway. - Physical Exam Vital Signs Temp Pulse Resp BP 98.5 F 105 H 18 100/53 L 08/30/19 10:42 08/30/19 10:42 08/30/19 10:42 08/30/19 10:42 General: Alert, Oriented x3, Cooperative, No apparent distress HEENT: Atraumatic, Normocephalic Oral: Moist Mucosa Neck: Supple Lungs: Normal air movement Extremities: No cyanosis Skin: Ulcer/ Wound Wound Measurements and Assessment WC - Nurse 1 - General Ulcer Measurement Start: 08/16/19 11:30 Freq: Status: Active Protocol: Activity Type Activity Date Activity User E-Sign Co-Sign Detail Recorded Client Recorded Date Recorded By Document 08/30/19 10:42 PELON [id number] 08/30/19 11:01 DL 08/30/19 10:42 Wound Center Nurse 1 [Ulcer Assessment] #7 Sacral -Current Size (cm) - Length 8.5 -Current Size (cm) - Width 9 -Current Size (cm) - Depth 1.2 -Total Square Cm 76.5 -Undermining/Tunneling Starts (O' 11 clock) -Undermining/Tunneling Ends (O'clock) 2 -Maximum Distance (cm) 3.3 -Exudate Amt Medium -Exudate Type Yellow/Green -Wound Margin Distinct, Outline Attached -Granulation Amt Large (67-100%) -Granulation Quality [place],Red -Necrosis Amt Small (1-33%) -Necrotic Tissue Type Adherent Slough -Structure Exposed N/A -Texture (Sheyla-wound Skin Appearance) Scarring -Moisture (Sheyla-wound Skin Appearance Maceration ) -Color (Sheyla-wound Skin Appearance) Ecchymosis, Rubor -Temperature (Sheyla-wound Skin No Abnormality Appearance) (Pt Warm) -Tenderness on Palpation (Sheyla-wound No Skin Appearance) -Ulcer Cleansing Wound Cleanser -Foul Odor after Cleansing No #6 R Buttocks -Current Size (cm) - Length 8.6 -Current Size (cm) - Width 5.7 -Current Size (cm) - Depth 1.2 -Total Square Cm 49.02 -Photo Taken No -Exudate Amt Medium -Exudate Type Yellow/Green -Wound Margin Distinct, Outline Attached -Granulation Amt Large (67-100%) -Granulation Quality [place],Red -Necrotic Tissue Type Adherent Slough -Structure Exposed N/A -Texture (Sheyla-wound Skin Appearance) Scarring -Moisture (Sheyla-wound Skin Appearance Maceration ) -Color (Sheyla-wound Skin Appearance) Erythema,Rubor -Temperature (Sheyla-wound Skin No Abnormality Appearance) (Pt Warm) -Tenderness on Palpation (Sheyla-wound No Skin Appearance) -Ulcer Cleansing Wound Cleanser -Foul Odor after Cleansing No #5 L Buttocks -Current Size (cm) - Length 5 -Current Size (cm) - Width 8 -Current Size (cm) - Depth 3.4 -Total Square Cm 40 -Photo Taken No -Exudate Amt Medium -Exudate Type Yellow/Green -Granulation Amt Large (67-100%) -Granulation Quality [place],Red -Necrosis Amt Small (1-33%) -Necrotic Tissue Type Adherent Slough -Structure Exposed N/A -Texture (Sheyla-wound Skin Appearance) Scarring -Moisture (Sheyla-wound Skin Appearance Maceration ) -Color (Sheyla-wound Skin Appearance) Erythema,Rubor -Temperature (Sheyla-wound Skin No Abnormality Appearance) (Pt Warm) -Tenderness on Palpation (Sheyla-wound No Skin Appearance) -Ulcer Cleansing Wound Cleanser -Foul Odor after Cleansing No Musculoskeletal: No Muscle Wasting Neurological: Cranial nerves II-XII grossly intact Psych/Mental Status: Normal Affect Debridement Note Post-Debridement Measurements/Treatment WC - Nurse 2 - General Ulcer CM Notes Start: 08/16/19 11:30 Freq: Status: Active Protocol: Activity Type Activity Date Activity User E-Sign Co-Sign Detail Recorded Client Recorded Date Recorded By Document 08/16/19 12:07 MW [id number] 08/16/19 12:11 MW 08/16/19 12:07 Wound Center Nurse 2 #7 Sacral -Time 12:07 -Correct Patient Yes -Correct Side, Site, Position Yes -Correct Procedure Yes -Procedure Performed Yes -Type of Procedure Debridement -Clinical Debridement Subcutaneous -Post Debridement Size (cm) - Length 7.0 -Post Debridement Size (cm) - Width 14.5 -Post Debridement Size (cm) - Depth 1.5 -Total Square Cm 101.50 -Wound/Ulcer Outcome Not Healed -Ulcer Cleansing Rinsed/ Irrigated with Saline -Foul Odor after Cleansing No -Bioengineered Tissue No -Bleeding Controlled with Pressure -Offloading No -Treatment Response Procedure Tolerated Well #6 R Buttocks -Time 12:07 -Correct Patient Yes -Correct Side, Site, Position Yes -Correct Procedure Yes -Procedure Performed Yes -Type of Procedure Debridement -Clinical Debridement Subcutaneous -Post Debridement Size (cm) - Length 8.5 -Post Debridement Size (cm) - Width 6.0 -Post Debridement Size (cm) - Depth 1.4 -Total Square Cm 51.00 -Wound/Ulcer Outcome Not Healed -Ulcer Cleansing Rinsed/ Irrigated with Saline -Foul Odor after Cleansing No -Bioengineered Tissue No -Bleeding Controlled with Pressure -Offloading No -Treatment Response Procedure Tolerated Well #5 L Buttocks -Time 12:08 -Correct Patient Yes -Correct Side, Site, Position Yes -Correct Procedure Yes -Procedure Performed Yes -Type of Procedure Debridement -Clinical Debridement Subcutaneous -Post Debridement Size (cm) - Length 9.5 -Post Debridement Size (cm) - Width 5.5 -Post Debridement Size (cm) - Depth 2.3 -Total Square Cm 52.25 -Wound/Ulcer Outcome Not Healed -Ulcer Cleansing Rinsed/ Irrigated with Saline -Foul Odor after Cleansing No -Bioengineered Tissue No -Bleeding Controlled with Pressure -Offloading No -Treatment Response Procedure Tolerated Well Pain Scale: 0-10 Numeric Is Patient Pain Free? Yes Wound debrided: Sacral Wound Grade/Stage: Stage IV Type of Debridement: Excisional debridement Anesthesia Used: 4% Lidocaine Solution Depth: Down to and including healthy tissue, in the subcutaneous layer Percentage of wound debrided: 100 Instrument Used: 7mm curette Tissue Removed: Slough and devitalized tissue Severity: Fat Layer Exposed Amount of bleeding with debridement: Mild Bleeding Controlled with: Pressure Patient tolerated procedure well - Additional Wound Wound debrided: Right buttock Wound Grade/Stage: Stage 4 Type of Debridement: Excisional debridement Anesthesia Used: 4% Lidocaine Solution Depth: Down to and including healthy tissue, in the subcutaneous layer Percentage of wound debrided: 100 Instrument Used: 7mm curette Tissue Removed: Slough and devitalized tissue Severity: Fat Layer Exposed Amount of bleeding with debridement: Mild Bleeding Controlled with: Pressure Patient tolerated procedure: Patient tolerated procedure well - Additional Wound Wound debrided: Left buttock Wound Grade/Stage: Stage 4 Type of Debridement: Excisional debridement Anesthesia Used: 4% Lidocaine Solution Depth: Down to and including healthy tissue, in the subcutaneous layer Percentage of wound debrided: 100 Instrument Used: 7mm curette Tissue Removed: Slough and devitalized tissue Severity: Fat Layer Exposed Amount of bleeding with debridement: Mild Bleeding Controlled with: Pressure Patient tolerated procedure: Patient tolerated procedure well Assessment/Plan Clinical Impression(s) from Imaging Studies Chest X-Ray 08/16/19 12:55 IMPRESSION: Minimal increased linear markings at the left lung base suggestive of linear atelectasis and/or scarring. Electronically Signed: Bryant Swan, at 13:24 EDT , Service support , Active Problems Sacral decubitus ulcer, stage IV (Chronic) Decubitus ulcer of right buttock, stage 4 (Chronic) Decubitus ulcer of left buttock, stage 4 (Chronic) Chronic osteomyelitis involving pelvic region and thigh (Chronic) Paraplegia (Chronic) Assessment: Same as above. Plan: Stable ulcers. Debridement done as documented above, procedure well-tolerated. Continue 10 minute Acetic acid soak to all ulcers then calcium alginate/collagen dressing. Change daily to twice daily depending on drainage. Due to his chronic osteomyeliis Carlos Manuel is a good candidate for HBO therapy however, this was held due to his respiratory issues. He has remained stable since January. Has an appointment with [place] [facility]. Approval is underway. Continue optimal dietary and protein intake. Offloading also recommended. His questions were answered and they were advised to call with any further questions or concerns. Follow up in 2 weeks. This note was generated with [email or web address] dictation software. It may contain incorrect words, spelling, and punctuation that were not noted in checking the note before signing. [id number]: [id number] Oxana subq tissue 20 sq cm/< Add On Codes: [id number] Oxana subq tissue add-on - Additional square centimeter debrided, please refer to clinical note
[2019-09-10 09:51] LABS: Bedside Glucose 157 mg/dL (70-110)
[2019-09-10 12:20] LABS: Bedside Glucose 106 mg/dL (70-110)
--- NOTE | 2019-09-10 15:46 | PCM.HBO.PN ---
History of Present Illness Date of Service: 09/10/19 Presenting Chief Complaint: Non healing decubitus ulcers. GABBI CARBAJAL is a 34 year old currently undergoing hyperbaric oxygen therapy for Chronic Refractory Osteomyelitis right posterior proximal thigh. Progress:Today represents 1st hyperbaric oxygen treatment of 40 planned treatments. Tolerance of hyperbaric oxygen therapy: Hyperbaric oxygen treatment was provided as per the facility's protocol at 2.0 KRISTEN and 100% oxygen for 90 minutes. The patient tolerated hyperbaric oxygen well, without complications or complaints. Upon emergence of the hyperbaric chamber the patient's vital signs remained stable. Pre and post blood glucose levels as documented. Past Medical History Chronic Problems (Last Reviewed 09/04/19 @ 08:49 by Corazon Lehman) Sacral decubitus ulcer, stage IV (Chronic) Decubitus ulcer of right buttock, stage 4 (Chronic) Decubitus ulcer of left buttock, stage 4 (Chronic) Chronic osteomyelitis involving pelvic region and thigh (Chronic) Paraplegia (Chronic) Allergies/Adverse Reactions: Allergies lidocaine Allergy (Verified 09/03/19 13:05) Unknown Home Medications: Ambulatory Orders Medication Instructions Recorded Sitagliptin Phosphate [Januvia] 100 mg PO DAILY 10/11/17 Baclofen 5 mg PO BID 10/12/18 Diazepam [Valium] 5 mg PO BID 10/12/18 Fentanyl 200 ea TD 10/12/18 Ferrous Sulfate 325 mg PO 10/12/18 Insulin Glargine,Hum.rec.anlog 10 unit SQ 10/12/18 [Lantus Solostar] Insulin Lispro [Humalog KwikPen] unit SQ 10/12/18 Magnesium Oxide [Magnesium] 400 mg PO BID 10/12/18 Melatonin 3 mg PO 10/12/18 Metoclopramide HCl [Reglan] 5 mg PO TID 10/12/18 Oxycodone [Oxyfast] 30 mg PO Q4H PRN 10/12/18 Pregabalin [Lyrica] 50 mg PO BID 10/12/18 Sitagliptin Phosphate [Januvia] 100 mg PO 10/12/18 traZODone [Desyrel] 50 mg PO QHS 10/12/18 Meloxicam 7.5 mg PO BID PRN 05/17/19 Methenamine Hippurate [Hiprex] 1 gm PO BID 05/17/19 Smoking Status: Former smoker Physical Exam Vital Signs Temp Pulse Resp BP 98.5 F 105 H 18 100/53 L 08/30/19 10:42 08/30/19 10:42 08/30/19 10:42 08/30/19 10:42 General: Alert, Oriented x3, Cooperative HEENT: Atraumatic Lungs: Clear to auscultation, Normal air movement Cardiovascular: Regular rate, Regular Rhythm Psych/Mental Status: Normal Affect, Appropriate Assessment/Plan Active Problems (Last Reviewed 09/04/19 @ 08:49 by Corazon Lehman) Sacral decubitus ulcer, stage IV (Chronic) Decubitus ulcer of right buttock, stage 4 (Chronic) Decubitus ulcer of left buttock, stage 4 (Chronic) Chronic osteomyelitis involving pelvic region and thigh (Chronic) Paraplegia (Chronic) The patient tolerated the Hyperbaric oxygen treatment well, which will be continued as per his medical plan. [id number]
[2019-09-10 16:13] VITALS: BP 120/55; BP 91/65; PULSE 79; PULSE 97; RESP 18; TEMP 36.8; TEMP 36.9
[2019-09-11 08:45] LABS: Bedside Glucose 148 mg/dL (70-110)
[2019-09-11 10:51] LABS: Bedside Glucose 108 mg/dL (70-110)
[2019-09-11 11:21] VITALS: BP 102/58; BP 99/61; PULSE 83; PULSE 91; RESP 18; TEMP 37.1
--- NOTE | 2019-09-11 13:21 | PCM.HBO.PN ---
History of Present Illness Date of Service: 09/11/19 Presenting Chief Complaint: Non healing, chronic decubitus pressure ulcers, stage IV, with osteomyelitis. GABBI CARBAJAL is a 34 year old currently undergoing hyperbaric oxygen therapy for stage IV pressure ulceration and chronic refractory osteomyelitis right posterior proximal thigh/buttock/sacral region. Progress:Today represents 2nd hyperbaric oxygen treatment of 40 planned treatments. Tolerance of hyperbaric oxygen therapy: Hyperbaric oxygen treatment was provided as per the facility's protocol at 2.0 KRISTEN and 100% oxygen for 90 minutes. The patient tolerated hyperbaric oxygen well, without complications or complaints. Upon emergence of the hyperbaric chamber the patient's vital signs remained stable. Pre and post blood glucose levels as documented. Patient was discharged in good condition. Past Medical History Chronic Problems (Last Reviewed 09/04/19 @ 08:49 by Corazon Lehman) Sacral decubitus ulcer, stage IV (Chronic) Decubitus ulcer of right buttock, stage 4 (Chronic) Decubitus ulcer of left buttock, stage 4 (Chronic) Chronic osteomyelitis involving pelvic region and thigh (Chronic) Paraplegia (Chronic) Allergies/Adverse Reactions: Allergies lidocaine Allergy (Verified 09/03/19 13:05) Unknown Home Medications: Ambulatory Orders Medication Instructions Recorded Sitagliptin Phosphate [Januvia] 100 mg PO DAILY 10/11/17 Baclofen 5 mg PO BID 10/12/18 Diazepam [Valium] 5 mg PO BID 10/12/18 Fentanyl 200 ea TD 10/12/18 Ferrous Sulfate 325 mg PO 10/12/18 Insulin Glargine,Hum.rec.anlog 10 unit SQ 10/12/18 [Lantus Solostar] Insulin Lispro [Humalog KwikPen] unit SQ 10/12/18 Magnesium Oxide [Magnesium] 400 mg PO BID 10/12/18 Melatonin 3 mg PO 10/12/18 Metoclopramide HCl [Reglan] 5 mg PO TID 10/12/18 Oxycodone [Oxyfast] 30 mg PO Q4H PRN 10/12/18 Pregabalin [Lyrica] 50 mg PO BID 10/12/18 Sitagliptin Phosphate [Januvia] 100 mg PO 10/12/18 traZODone [Desyrel] 50 mg PO QHS 10/12/18 Meloxicam 7.5 mg PO BID PRN 05/17/19 Methenamine Hippurate [Hiprex] 1 gm PO BID 05/17/19 Smoking Status: Former smoker Physical Exam Vital Signs Temp Pulse Resp BP 98.7 F 83 18 102/58 L 09/11/19 11:21 09/11/19 11:21 09/11/19 11:21 09/11/19 11:21 General: Alert, Oriented x3, Cooperative, No apparent distress, Well developed, - - The patient is noted to be wheelchair-bound, consistent with his diagnosis of paraplegia. HEENT: Atraumatic, PERRLA, EOMI, Normocephalic Lungs: Normal air movement Psych/Mental Status: Normal Affect, Appropriate, Alert and oriented to time, place, person, mood and affect Assessment/Plan Active Problems (Last Reviewed 09/04/19 @ 08:49 by Corazon Lehman) Sacral decubitus ulcer, stage IV (Chronic) Decubitus ulcer of right buttock, stage 4 (Chronic) Decubitus ulcer of left buttock, stage 4 (Chronic) Chronic osteomyelitis involving pelvic region and thigh (Chronic) Paraplegia (Chronic) The patient tolerated hyperbaric oxygen therapy well, which will be continued as per the patient's medical plan.
== END 2019-09-11 23:59 ==
LOC: WC 08:30
PROVIDERS: Family Provider Family Medicine; Referring Provider Internal Medicine; Visit Provider Internal Medicine
DX: L89.324 Pressure ulcer of left buttock, stage 4 (principal); L89.314 Pressure ulcer of right buttock, stage 4; G82.20 Paraplegia, unspecified; L89.154 Pressure ulcer of sacral region, stage 4; M86.68 Other chronic osteomyelitis, other site; Z79.899 Other long term (current) drug therapy; Z87.891 Personal history of nicotine dependence
CPT/HCPCS: 11042; 11045; 71046; 82962; 99183; G0277

== ENCOUNTER 2019-10-12 10:15 | Outpatient (RCR) | payer OTHER, SELFPAY ==
[2019-08-30 10:42] VITALS: BMI 21.8
[2019-09-12 00:24] VITALS: BP 102/58; PULSE 83; RESP 18; TEMP 37.1
--- NOTE | 2019-09-12 14:24 | PCM.HBO.PN ---
History of Present Illness Date of Service: 09/12/19 Presenting Chief Complaint: Non healing, chronic decubitus pressure ulcers, stage IV, with osteomyelitis. GABBI CARBAJAL is a 34 year old currently undergoing hyperbaric oxygen therapy for stage IV pressure ulceration and chronic refractory osteomyelitis right posterior proximal thigh/buttock/sacral region. Progress:Today represents 3rd hyperbaric oxygen treatment of 40 planned treatments. Tolerance of hyperbaric oxygen therapy: Hyperbaric oxygen treatment was provided as per the facility's protocol at 2.0 KRISTEN and 100% oxygen for 90 minutes. The patient tolerated hyperbaric oxygen well, without complications or complaints. Upon emergence of the hyperbaric chamber the patient's vital signs remained stable. Pre and post blood glucose levels as documented. Patient was discharged in good condition. Past Medical History Chronic Problems (Last Reviewed 09/04/19 @ 08:49 by Corazon Lehman) Sacral decubitus ulcer, stage IV (Chronic) Decubitus ulcer of right buttock, stage 4 (Chronic) Decubitus ulcer of left buttock, stage 4 (Chronic) Chronic osteomyelitis involving pelvic region and thigh (Chronic) Paraplegia (Chronic) Allergies/Adverse Reactions: Allergies lidocaine Allergy (Verified 09/03/19 13:05) Unknown Home Medications: Ambulatory Orders Medication Instructions Recorded Sitagliptin Phosphate [Januvia] 100 mg PO DAILY 10/11/17 Baclofen 5 mg PO BID 10/12/18 Diazepam [Valium] 5 mg PO BID 10/12/18 Fentanyl 200 ea TD 10/12/18 Ferrous Sulfate 325 mg PO 10/12/18 Insulin Glargine,Hum.rec.anlog 10 unit SQ 10/12/18 [Lantus Solostar] Insulin Lispro [Humalog KwikPen] unit SQ 10/12/18 Magnesium Oxide [Magnesium] 400 mg PO BID 10/12/18 Melatonin 3 mg PO 10/12/18 Metoclopramide HCl [Reglan] 5 mg PO TID 10/12/18 Oxycodone [Oxyfast] 30 mg PO Q4H PRN 10/12/18 Pregabalin [Lyrica] 50 mg PO BID 10/12/18 Sitagliptin Phosphate [Januvia] 100 mg PO 10/12/18 traZODone [Desyrel] 50 mg PO QHS 10/12/18 Meloxicam 7.5 mg PO BID PRN 05/17/19 Methenamine Hippurate [Hiprex] 1 gm PO BID 05/17/19 Smoking Status: Former smoker Physical Exam Vital Signs Temp Pulse Resp BP 98.7 F 83 18 102/58 L 09/12/19 00:24 09/12/19 00:24 09/12/19 00:24 09/12/19 00:24 General: Alert, Oriented x3, Cooperative HEENT: Atraumatic, - - right TM with increased fluid but no pain or pressure left TM slightly cloudy but no pain or pressure Lungs: Clear to auscultation, Normal air movement Cardiovascular: Regular rate, Regular Rhythm Psych/Mental Status: Normal Affect, Appropriate, Alert and oriented to time, place, person, mood and affect Assessment/Plan Treatment Course Number Treatment Course Number 1 Treatment # 3 Other - Detail Chronic Refractory Yes Osteomyelitis (specify site in comment) The patient tolerated hyperbaric oxygen therapy well, which will be continued as per the patient's medical plan.
[2019-09-12 14:50] LABS: Bedside Glucose 149 mg/dL (70-110)
[2019-09-12 15:45] LABS: Bedside Glucose 167 mg/dL (70-110)
[2019-09-13 08:38] VITALS: BP 104/62; BP 110/65; PULSE 85; PULSE 86; RESP 18; TEMP 36.5; TEMP 36.6
[2019-09-13 09:06] LABS: Bedside Glucose 151 mg/dL (70-110)
[2019-09-13 09:29] VITALS: BP 105/59; BP 96/52; PULSE 101; PULSE 85; RESP 18; TEMP 36.6; TEMP 36.8
[2019-09-13 11:11] LABS: Bedside Glucose 101 mg/dL (70-110)
[2019-09-13 11:16] VITALS: BP 105/59; PULSE 85; RESP 18; TEMP 36.6; BMI 21.8
--- NOTE | 2019-09-13 12:16 | PN.PCM_ITS ---
(1) Chronic osteomyelitis involving pelvic region and thigh Status: Chronic Current Visit: Yes Code(s): M86.659 - Other chronic osteomyelitis, unspecified thigh (2) Decubitus ulcer of left buttock, stage 4 Status: Chronic Current Visit: Yes Code(s): L89.324 - Pressure ulcer of left buttock, stage 4 (3) Decubitus ulcer of right buttock, stage 4 Status: Chronic Current Visit: Yes Code(s): L89.314 - Pressure ulcer of right buttock, stage 4 (4) Paraplegia Status: Chronic Current Visit: Yes Code(s): G82.20 - Paraplegia, unspecified (5) Sacral decubitus ulcer, stage IV Status: Chronic Current Visit: Yes Code(s): L89.154 - Pressure ulcer of sacral region, stage 4 Type of Wound Date of Service: 09/13/19 Chief Complaint: Non healing, chronic decubitus pressure ulcers, stage IV, with osteomyelitis. History of Wound: Mr. Joyce is a 33yo well known to the wound center but was last seen here over a month ago. Initial sacral ulcer was said to have started in November and Buttock ulcers were noted subsequently. He has had an extensive hospital stay over the last couple of months following a work related injury. Both during his hopsital and half-way stays, he had wound care ranging from surgical debridement, wound vac and collagen use. He was scheduled to be restarted on his wound Vac prior to his discharge from the [place]. He reports significant drainage from the wounds. Also of note is a history of osteomyelitis for which he was on a 6 week IV antibiotic. His however states they were informed that he had developed chronic extensive pelvic area osteomyelitis. He feels well otherwise at this time and denies chills, fever,nausea, vomitting or change in bowel habit. 02/22/2019: Above, he was last seen here over a month ago. Had an extensive hospital stay [facility] due to c omplications from prior neck surgery. They state that his ulcers have been stable. Been doing the acetic acid soak for 10 minutes and then calcium alginate/collagen dressings. Is any concerns at this time. Progress of Wound: No new concerns in regards to ulcers. Tolerating HBO well, has had 4 sessions. - Physical Exam Vital Signs Temp Pulse Resp BP 97.8 F 85 18 105/59 L 09/13/19 11:16 09/13/19 11:16 09/13/19 11:16 09/13/19 11:16 General: Alert, Oriented x3, Cooperative, No apparent distress HEENT: Atraumatic, Normocephalic Oral: Moist Mucosa Neck: Supple Lungs: Normal air movement Extremities: No cyanosis Skin: Ulcer/ Wound Wound Measurements and Assessment WC - Nurse 1 - General Ulcer Measurement Start: 09/12/19 14:10 Freq: Status: Active Protocol: Activity Type Activity Date Activity User E-Sign Co-Sign Detail Recorded Client Recorded Date Recorded By Document 09/13/19 11:16 DV [id number] 09/13/19 11:21 DV 09/13/19 11:16 Wound Center Nurse 1 [Ulcer Assessment] #7 Sacral -Combined with other wound No -Current Size (cm) - Length 7.6 -Current Size (cm) - Width 14.7 -Current Size (cm) - Depth 1.1 -Total Square Cm 111.72 -Tunneling No -Undermining/Tunneling Yes -Undermining/Tunneling Starts (O' 11 clock) -Undermining/Tunneling Ends (O'clock) 3 -Maximum Distance (cm) 3.2 -Exudate Amt Large -Exudate Type Serosanguineous -Wound Margin Thickened & Rolled Under -Granulation Amt Large (67-100%) -Granulation Quality Red -Slough/Fibrin Yes -Necrosis Amt Small (1-33%) -Necrotic Tissue Type Adherent Slough -Structure Exposed N/A -Texture (Sheyla-wound Skin Appearance) Scarring -Moisture (Sheyla-wound Skin Appearance Assessed ) -Color (Sheyla-wound Skin Appearance) Assessed, Erythema -Temperature (Sheyla-wound Skin No Abnormality Appearance) (Pt Warm) -Tenderness on Palpation (Sheyla-wound No Skin Appearance) -Ulcer Cleansing Wound Cleanser -Foul Odor after Cleansing No #6 R Buttocks -Combined with other wound No -Current Size (cm) - Length 9.8 -Current Size (cm) - Width 5.8 -Current Size (cm) - Depth 1 -Total Square Cm 56.84 -Tunneling No -Undermining/Tunneling No -Circular Undermining No -Exudate Amt Large -Exudate Type Serosanguineous -Wound Margin Thickened & Rolled Under -Granulation Amt Large (67-100%) -Granulation Quality Red -Slough/Fibrin Yes -Necrosis Amt Small (1-33%) -Necrotic Tissue Type Adherent Slough -Structure Exposed N/A -Texture (Sheyla-wound Skin Appearance) Assessed -Moisture (Sheyla-wound Skin Appearance Maceration ) -Color (Sheyla-wound Skin Appearance) Assessed -Temperature (Sheyla-wound Skin No Abnormality Appearance) (Pt Warm) -Tenderness on Palpation (Sheyla-wound No Skin Appearance) -Ulcer Cleansing Wound Cleanser -Foul Odor after Cleansing No #5 L Buttocks -Combined with other wound No -Current Size (cm) - Length 7.9 -Current Size (cm) - Width 6.1 -Current Size (cm) - Depth 2.9 -Total Square Cm 48.19 -Tunneling No -Undermining/Tunneling Yes -Undermining/Tunneling Starts (O' 12 clock) -Undermining/Tunneling Ends (O'clock) 5 -Maximum Distance (cm) 1.2 -Circular Undermining No -Exudate Amt Large -Exudate Type Serosanguineous -Wound Margin Thickened & Rolled Under -Granulation Amt Large (67-100%) -Granulation Quality Red -Slough/Fibrin Yes -Necrosis Amt Small (1-33%) -Necrotic Tissue Type Adherent Slough -Structure Exposed N/A -Texture (Sheyla-wound Skin Appearance) Assessed -Moisture (Sheyla-wound Skin Appearance Maceration ) -Color (Sheyla-wound Skin Appearance) Assessed -Temperature (Sheyla-wound Skin No Abnormality Appearance) (Pt Warm) -Tenderness on Palpation (Sheyla-wound No Skin Appearance) -Ulcer Cleansing Wound Cleanser -Foul Odor after Cleansing No WC - Nurse 2 - General Ulcer CM Notes Start: 09/12/19 14:10 Freq: Status: Active Protocol: Activity Type Activity Date Activity User E-Sign Co-Sign Detail Recorded Client Recorded Date Recorded By Document 09/13/19 11:47 MW [id number] 09/13/19 11:51 MW 09/13/19 11:47 Wound Center Nurse 2 [Procedure/Treatment] #7 Sacral -Time 11:48 -Correct Patient Yes -Correct Side, Site, Position Yes -Correct Procedure Yes -Procedure Performed Yes -Type of Procedure Debridement -Clinical Debridement Subcutaneous -Post Debridement Size (cm) - Length 7.5 -Post Debridement Size (cm) - Width 14.0 -Post Debridement Size (cm) - Depth 1.5 -Total Square Cm 105.00 -Wound/Ulcer Outcome Not Healed -Ulcer Cleansing Rinsed/ Irrigated with Saline -Foul Odor after Cleansing No -Bioengineered Tissue No -Bleeding Controlled with Pressure -Offloading No -Treatment Response Procedure Tolerated Well #6 R Buttocks -Time 11:48 -Correct Patient Yes -Correct Side, Site, Position Yes -Correct Procedure Yes -Procedure Performed Yes -Type of Procedure Debridement -Clinical Debridement Subcutaneous -Post Debridement Size (cm) - Length 9.0 -Post Debridement Size (cm) - Width 5.0 -Post Debridement Size (cm) - Depth 1.5 -Total Square Cm 45.00 -Wound/Ulcer Outcome Not Healed -Ulcer Cleansing Rinsed/ Irrigated with Saline -Foul Odor after Cleansing No -Bioengineered Tissue No -Bleeding Controlled with Pressure -Offloading No -Treatment Response Procedure Tolerated Well #5 L Buttocks -Time 11:48 -Correct Patient Yes -Correct Side, Site, Position Yes -Correct Procedure Yes -Procedure Performed Yes -Type of Procedure Debridement -Clinical Debridement Subcutaneous -Post Debridement Size (cm) - Length 9.0 -Post Debridement Size (cm) - Width 6.0 -Post Debridement Size (cm) - Depth 2.3 -Total Square Cm 54.00 -Wound/Ulcer Outcome Not Healed -Ulcer Cleansing Rinsed/ Irrigated with Saline -Foul Odor after Cleansing No -Bioengineered Tissue No -Bleeding Controlled with Pressure -Offloading No -Treatment Response Procedure Tolerated Well [See Physician Procedure note for Specifics] Pain Scale: 0-10 Numeric [Pain] -Is Patient Pain Free? Yes Musculoskeletal: No Muscle Wasting Neurological: Cranial nerves II-XII grossly intact Psych/Mental Status: Normal Affect Debridement Note Post-Debridement Measurements/Treatment WC - Nurse 2 - General Ulcer CM Notes Start: 09/12/19 14:10 Freq: Status: Active Protocol: Activity Type Activity Date Activity User E-Sign Co-Sign Detail Recorded Client Recorded Date Recorded By Document 09/13/19 11:47 MW [id number] 09/13/19 11:51 MW 09/13/19 11:47 Wound Center Nurse 2 #7 Sacral -Time 11:48 -Correct Patient Yes -Correct Side, Site, Position Yes -Correct Procedure Yes -Procedure Performed Yes -Type of Procedure Debridement -Clinical Debridement Subcutaneous -Post Debridement Size (cm) - Length 7.5 -Post Debridement Size (cm) - Width 14.0 -Post Debridement Size (cm) - Depth 1.5 -Total Square Cm 105.00 -Wound/Ulcer Outcome Not Healed -Ulcer Cleansing Rinsed/ Irrigated with Saline -Foul Odor after Cleansing No -Bioengineered Tissue No -Bleeding Controlled with Pressure -Offloading No -Treatment Response Procedure Tolerated Well #6 R Buttocks -Time 11:48 -Correct Patient Yes -Correct Side, Site, Position Yes -Correct Procedure Yes -Procedure Performed Yes -Type of Procedure Debridement -Clinical Debridement Subcutaneous -Post Debridement Size (cm) - Length 9.0 -Post Debridement Size (cm) - Width 5.0 -Post Debridement Size (cm) - Depth 1.5 -Total Square Cm 45.00 -Wound/Ulcer Outcome Not Healed -Ulcer Cleansing Rinsed/ Irrigated with Saline -Foul Odor after Cleansing No -Bioengineered Tissue No -Bleeding Controlled with Pressure -Offloading No -Treatment Response Procedure Tolerated Well #5 L Buttocks -Time 11:48 -Correct Patient Yes -Correct Side, Site, Position Yes -Correct Procedure Yes -Procedure Performed Yes -Type of Procedure Debridement -Clinical Debridement Subcutaneous -Post Debridement Size (cm) - Length 9.0 -Post Debridement Size (cm) - Width 6.0 -Post Debridement Size (cm) - Depth 2.3 -Total Square Cm 54.00 -Wound/Ulcer Outcome Not Healed -Ulcer Cleansing Rinsed/ Irrigated with Saline -Foul Odor after Cleansing No -Bioengineered Tissue No -Bleeding Controlled with Pressure -Offloading No -Treatment Response Procedure Tolerated Well Pain Scale: 0-10 Numeric Is Patient Pain Free? Yes Wound debrided: Sacral Wound Grade/Stage: Stage IV Type of Debridement: Excisional debridement Anesthesia Used: 4% Lidocaine Solution Depth: Down to and including healthy tissue, in the subcutaneous layer Percentage of wound debrided: 100 Instrument Used: 7mm curette Tissue Removed: Slough and devitalized tissue Severity: Fat Layer Exposed Amount of bleeding with debridement: Mild Bleeding Controlled with: Pressure Patient tolerated procedure well - Additional Wound Wound debrided: Right Buttock Wound Grade/Stage: Stage IV Type of Debridement: Excisional debridement Anesthesia Used: 4% Lidocaine Solution Depth: Down to and including healthy tissue, in the subcutaneous layer Percentage of wound debrided: 100 Instrument Used: 7mm curette Tissue Removed: Slough and devitalized tissue Severity: Fat Layer Exposed Amount of bleeding with debridement: Mild Bleeding Controlled with: Pressure Patient tolerated procedure: Patient tolerated procedure well - Additional Wound Wound debrided: Left Buttock Wound Grade/Stage: Stage IV Type of Debridement: Excisional debridement Anesthesia Used: 4% Lidocaine Solution Depth: Down to and including healthy tissue, in the subcutaneous layer Percentage of wound debrided: 100 Instrument Used: 7mm curette Tissue Removed: Slough and devitalized tissue Severity: Fat Layer Exposed Amount of bleeding with debridement: Mild Bleeding Controlled with: Pressure Patient tolerated procedure: Patient tolerated procedure well Assessment/Plan Active Problems (Last Reviewed 09/04/19 @ 08:49 by Corazon Lehman) Sacral decubitus ulcer, stage IV (Chronic) Decubitus ulcer of right buttock, stage 4 (Chronic) Decubitus ulcer of left buttock, stage 4 (Chronic) Chronic osteomyelitis involving pelvic region and thigh (Chronic) Paraplegia (Chronic) Assessment: Same as above. Plan: Stable ulcers. Debridement done as documented above, procedure well- tolerated. Continue 10 minute Acetic acid soak to all ulcers then calcium alginate/collagen dressing. Change daily to twice daily depending on drainage. Due to his chronic osteomyeliis Carlos Manuel is a good candidate for HBO theray. Had 4 sessions and tolerating them well so far. Continue optimal dietary and protein intake. Offloading also recommended. His questions were answered and they were advised to call with any further questions or concerns. Follow up in 2 weeks. This note was generated with [employer] dictation software. It may contain incorrect words, spelling, and punctuation that were not noted in checking the note before signing. [id number]: [id number] Oxana subq tissue 20 sq cm/< Add On Codes: 21124 Oxana subq tissue add-on - Additional square centimeter debrided, please refer to clinical note
--- NOTE | 2019-09-13 12:22 | PCM.HBO.PN ---
History of Present Illness Date of Service: 09/13/19 Presenting Chief Complaint: Non healing, chronic decubitus pressure ulcers, stage IV, with osteomyelitis. GABBI CARBAJAL is a 34 year old currently undergoing hyperbaric oxygen therapy for stage IV pressure ulceration and chronic refractory osteomyelitis right posterior proximal thigh/buttock/sacral region. Progress:Today represents 4th hyperbaric oxygen treatment of 40 planned treatments. Tolerance of hyperbaric oxygen therapy: Hyperbaric oxygen treatment was provided as per the facility's protocol at 2.0 KRISTEN and 100% oxygen for 90 minutes. The patient tolerated hyperbaric oxygen well, without complications or complaints. Upon emergence of the hyperbaric chamber the patient's vital signs remained stable. Pre and post blood glucose levels as documented. Patient was discharged in good condition. Past Medical History Chronic Problems (Last Reviewed 09/04/19 @ 08:49 by Corazon Lehman) Sacral decubitus ulcer, stage IV (Chronic) Decubitus ulcer of right buttock, stage 4 (Chronic) Decubitus ulcer of left buttock, stage 4 (Chronic) Chronic osteomyelitis involving pelvic region and thigh (Chronic) Paraplegia (Chronic) Allergies/Adverse Reactions: Allergies lidocaine Allergy (Verified 09/03/19 13:05) Unknown Home Medications: Ambulatory Orders Medication Instructions Recorded Sitagliptin Phosphate [Januvia] 100 mg PO DAILY 10/11/17 Baclofen 5 mg PO BID 10/12/18 Diazepam [Valium] 5 mg PO BID 10/12/18 Fentanyl 200 ea TD 10/12/18 Ferrous Sulfate 325 mg PO 10/12/18 Insulin Glargine,Hum.rec.anlog 10 unit SQ 10/12/18 [Lantus Solostar] Insulin Lispro [Humalog KwikPen] unit SQ 10/12/18 Magnesium Oxide [Magnesium] 400 mg PO BID 10/12/18 Melatonin 3 mg PO 10/12/18 Metoclopramide HCl [Reglan] 5 mg PO TID 10/12/18 Oxycodone [Oxyfast] 30 mg PO Q4H PRN 10/12/18 Pregabalin [Lyrica] 50 mg PO BID 10/12/18 Sitagliptin Phosphate [Januvia] 100 mg PO 10/12/18 traZODone [Desyrel] 50 mg PO QHS 10/12/18 Meloxicam 7.5 mg PO BID PRN 05/17/19 Methenamine Hippurate [Hiprex] 1 gm PO BID 05/17/19 Smoking Status: Former smoker Physical Exam Vital Signs Temp Pulse Resp BP 97.8 F 85 18 105/59 L 09/13/19 11:16 09/13/19 11:16 09/13/19 11:16 09/13/19 11:16 General: Alert, Oriented x3, Cooperative, No apparent distress HEENT: Atraumatic, Normocephalic Lungs: Normal air movement Psych/Mental Status: Normal Affect Assessment/Plan Active Problems (Last Reviewed 09/04/19 @ 08:49 by Corazon Lehman) Sacral decubitus ulcer, stage IV (Chronic) Decubitus ulcer of right buttock, stage 4 (Chronic) Decubitus ulcer of left buttock, stage 4 (Chronic) Chronic osteomyelitis involving pelvic region and thigh (Chronic) Paraplegia (Chronic) Same as above. Treatment Course Number Number of HBO Treatments 40 Ordered Treatment Course Number 1 Treatment # 4 Chamber # 674-40 Chamber Type Monoplace Other - Detail Chronic Refractory Yes Osteomyelitis (specify site in comment) Treatment Plan KRISTEN (Atmospheric Absolute) 2.0 Number of Minutes 90 Number of Air Breaks 0 Patient tolerated hyperbaric oxygen therapy well which will be continued as per the patient's medical plan. HBO supervision.
[2019-09-17 09:13] VITALS: BP 105/72; BP 114/63; PULSE 103; PULSE 106; RESP 16; RESP 18; TEMP 36.6
[2019-09-17 09:16] LABS: Bedside Glucose 166 mg/dL (70-110)
[2019-09-17 11:15] LABS: Bedside Glucose 225 mg/dL (70-110)
--- NOTE | 2019-09-17 12:20 | PCM.HBO.PN ---
History of Present Illness Date of Service: 09/17/19 Presenting Chief Complaint: Non healing, chronic decubitus pressure ulcers, stage IV, with osteomyelitis. GABBI CARBAJAL is a 34 year old currently undergoing hyperbaric oxygen therapy for stage IV pressure ulceration and chronic refractory osteomyelitis right posterior proximal thigh/buttock/sacral region. Progress:Today represents 5th hyperbaric oxygen treatment of 40 planned treatments. Tolerance of hyperbaric oxygen therapy: Hyperbaric oxygen treatment was provided as per the facility's protocol at 2.0 KRISTEN and 100% oxygen for 90 minutes. The patient tolerated hyperbaric oxygen well, without complications or complaints. Upon emergence of the hyperbaric chamber the patient's vital signs remained stable. Pre and post blood glucose levels as documented. Patient was discharged in good condition. Past Medical History Chronic Problems (Last Reviewed 09/04/19 @ 08:49 by Corazon Lehman) Sacral decubitus ulcer, stage IV (Chronic) Decubitus ulcer of right buttock, stage 4 (Chronic) Decubitus ulcer of left buttock, stage 4 (Chronic) Chronic osteomyelitis involving pelvic region and thigh (Chronic) Paraplegia (Chronic) Allergies/Adverse Reactions: Allergies lidocaine Allergy (Verified 09/03/19 13:05) Unknown Home Medications: Ambulatory Orders Medication Instructions Recorded Sitagliptin Phosphate [Januvia] 100 mg PO DAILY 10/11/17 Baclofen 5 mg PO BID 10/12/18 Diazepam [Valium] 5 mg PO BID 10/12/18 Fentanyl 200 ea TD 10/12/18 Ferrous Sulfate 325 mg PO 10/12/18 Insulin Glargine,Hum.rec.anlog 10 unit SQ 10/12/18 [Lantus Solostar] Insulin Lispro [Humalog KwikPen] unit SQ 10/12/18 Magnesium Oxide [Magnesium] 400 mg PO BID 10/12/18 Melatonin 3 mg PO 10/12/18 Metoclopramide HCl [Reglan] 5 mg PO TID 10/12/18 Oxycodone [Oxyfast] 30 mg PO Q4H PRN 10/12/18 Pregabalin [Lyrica] 50 mg PO BID 10/12/18 Sitagliptin Phosphate [Januvia] 100 mg PO 10/12/18 traZODone [Desyrel] 50 mg PO QHS 10/12/18 Meloxicam 7.5 mg PO BID PRN 05/17/19 Methenamine Hippurate [Hiprex] 1 gm PO BID 05/17/19 Smoking Status: Former smoker Physical Exam Vital Signs Temp Pulse Resp BP 97.8 F 103 H 18 105/72 09/17/19 09:13 09/17/19 09:13 09/17/19 09:13 09/17/19 09:13 General: Alert, Oriented x3, Cooperative HEENT: Atraumatic Lungs: Clear to auscultation, Normal air movement Cardiovascular: Regular rate, Regular Rhythm Psych/Mental Status: Normal Affect, Appropriate Assessment/Plan Active Problems (Last Reviewed 09/04/19 @ 08:49 by Corazon Lehman) Sacral decubitus ulcer, stage IV (Chronic) Decubitus ulcer of right buttock, stage 4 (Chronic) Decubitus ulcer of left buttock, stage 4 (Chronic) Chronic osteomyelitis involving pelvic region and thigh (Chronic) Paraplegia (Chronic) ASSESSMENT 1. Sacral decubitus ulcer, stage IV 2. Decubitus ulcer of right buttock, stage 4 3. Decubitus ulcer of left buttock, stage 4 4. Chronic osteomyelitis involving pelvic region and thigh 5. Paraplegia PLAN The patient tolerated the Hyperbaric oxygen treatment well, which he will continue as per his medical plan. Treatment Course Number Number of HBO Treatments 40 Ordered Treatment Course Number 1 Treatment # 5 Chamber # 674-40 Chamber Type Monoplace Diabetes - Detail Diabetes Diabetes Type II Other - Detail Chronic Refractory Yes: Pelvic region and thigh Osteomyelitis (specify site in comment) Treatment Plan KRISTEN (Atmospheric Absolute) 2 Number of Minutes 90 Number of Air Breaks 0 [id number]
[2019-09-18 09:11] LABS: Bedside Glucose 217 mg/dL (70-110)
[2019-09-18 09:20] VITALS: BP 117/66; BP 123/60; PULSE 74; PULSE 89; RESP 16; TEMP 37; TEMP 37.4
[2019-09-18 11:20] LABS: Bedside Glucose 192 mg/dL (70-110)
--- NOTE | 2019-09-18 13:50 | PCM.HBO.PN ---
History of Present Illness Date of Service: 09/18/19 Presenting Chief Complaint: Non healing, chronic decubitus pressure ulcers, stage IV, with osteomyelitis - thigh, buttock, sacrum. GABBI CARBAJAL is a 34 year old currently undergoing hyperbaric oxygen therapy for stage IV pressure ulceration and chronic refractory osteomyelitis right posterior proximal thigh/buttock/sacral region. Progress:Today represents 6th hyperbaric oxygen treatment of 40 planned treatments. Tolerance of hyperbaric oxygen therapy: Hyperbaric oxygen treatment was provided as per the facility's protocol at 2.0 KRISTEN and 100% oxygen for 90 minutes. There were no air breaks. The patient tolerated hyperbaric oxygen well, without complications or complaints. Upon emergence of the hyperbaric chamber the patient's vital signs remained stable. Pre and post blood glucose levels as documented. Patient was discharged in good condition. Past Medical History Chronic Problems (Last Reviewed 09/04/19 @ 08:49 by Corazon Lehman) Sacral decubitus ulcer, stage IV (Chronic) Decubitus ulcer of right buttock, stage 4 (Chronic) Decubitus ulcer of left buttock, stage 4 (Chronic) Chronic osteomyelitis involving pelvic region and thigh (Chronic) Paraplegia (Chronic) Allergies/Adverse Reactions: Allergies lidocaine Allergy (Verified 09/03/19 13:05) Unknown Home Medications: Ambulatory Orders Medication Instructions Recorded Sitagliptin Phosphate [Januvia] 100 mg PO DAILY 10/11/17 Baclofen 5 mg PO BID 10/12/18 Diazepam [Valium] 5 mg PO BID 10/12/18 Fentanyl 200 ea TD 10/12/18 Ferrous Sulfate 325 mg PO 10/12/18 Insulin Glargine,Hum.rec.anlog 10 unit SQ 10/12/18 [Lantus Solostar] Insulin Lispro [Humalog KwikPen] unit SQ 10/12/18 Magnesium Oxide [Magnesium] 400 mg PO BID 10/12/18 Melatonin 3 mg PO 10/12/18 Metoclopramide HCl [Reglan] 5 mg PO TID 10/12/18 Oxycodone [Oxyfast] 30 mg PO Q4H PRN 10/12/18 Pregabalin [Lyrica] 50 mg PO BID 10/12/18 Sitagliptin Phosphate [Januvia] 100 mg PO 10/12/18 traZODone [Desyrel] 50 mg PO QHS 10/12/18 Meloxicam 7.5 mg PO BID PRN 05/17/19 Methenamine Hippurate [Hiprex] 1 gm PO BID 05/17/19 Smoking Status: Former smoker Physical Exam Vital Signs Temp Pulse Resp BP 99.3 F H 74 16 123/60 H 09/18/19 09:20 09/18/19 09:20 09/18/19 09:20 09/18/19 09:20 General: Alert, Oriented x3, Cooperative, No apparent distress, - - The patient is wheelchair-bound and paraplegic HEENT: Atraumatic, PERRLA, EOMI, Normocephalic Lungs: Normal air movement Psych/Mental Status: Normal Affect, Appropriate, Alert and oriented to time, place, person, mood and affect Assessment/Plan Active Problems (Last Reviewed 09/04/19 @ 08:49 by Corazon Lehman) Sacral decubitus ulcer, stage IV (Chronic) Decubitus ulcer of right buttock, stage 4 (Chronic) Decubitus ulcer of left buttock, stage 4 (Chronic) Chronic osteomyelitis involving pelvic region and thigh (Chronic) Paraplegia (Chronic) The patient appears to be tolerating hyperbaric oxygen therapy, which will be continued as per the patient's medical treatment plan. Treatment Course Number Number of HBO Treatments 40 Ordered Treatment Course Number 1 Treatment # 6 Chamber # 674-40 Chamber Type Monoplace Diabetes - Detail Diabetes Diabetes Type II Other - Detail Chronic Refractory Yes: Pelvic region and thigh Osteomyelitis (specify site in comment) Treatment Plan KRISTEN (Atmospheric Absolute) 2 Number of Minutes 90 Number of Air Breaks 0
[2019-09-20 13:05] LABS: Bedside Glucose 150 mg/dL (70-110)
--- NOTE | 2019-09-20 13:17 | PCM.HBO.PN ---
History of Present Illness Date of Service: 09/20/19 Presenting Chief Complaint: Non healing, chronic decubitus pressure ulcers, stage IV, with osteomyelitis - thigh, buttock, sacrum. GABBI CARBAJAL is a 34 year old currently undergoing hyperbaric oxygen therapy for stage IV pressure ulceration and chronic refractory osteomyelitis right posterior proximal thigh/buttock/sacral region. Progress:Today represents 7th hyperbaric oxygen treatment of 40 planned treatments. Tolerance of hyperbaric oxygen therapy: Hyperbaric oxygen treatment was provided as per the facility's protocol at 2.0 KRISTEN and 100% oxygen for 90 minutes. There were no air breaks. The patient tolerated hyperbaric oxygen well, without complications or complaints. Upon emergence of the hyperbaric chamber the patient's vital signs remained stable. Pre and post blood glucose levels as documented. Patient was discharged in good condition. Past Medical History Chronic Problems (Last Reviewed 09/04/19 @ 08:49 by Corazon Lehman) Sacral decubitus ulcer, stage IV (Chronic) Decubitus ulcer of right buttock, stage 4 (Chronic) Decubitus ulcer of left buttock, stage 4 (Chronic) Chronic osteomyelitis involving pelvic region and thigh (Chronic) Paraplegia (Chronic) Allergies/Adverse Reactions: Allergies lidocaine Allergy (Verified 09/03/19 13:05) Unknown Home Medications: Ambulatory Orders Medication Instructions Recorded Sitagliptin Phosphate [Januvia] 100 mg PO DAILY 10/11/17 Baclofen 5 mg PO BID 10/12/18 Diazepam [Valium] 5 mg PO BID 10/12/18 Fentanyl 200 ea TD 10/12/18 Ferrous Sulfate 325 mg PO 10/12/18 Insulin Glargine,Hum.rec.anlog 10 unit SQ 10/12/18 [Lantus Solostar] Insulin Lispro [Humalog KwikPen] unit SQ 10/12/18 Magnesium Oxide [Magnesium] 400 mg PO BID 10/12/18 Melatonin 3 mg PO 10/12/18 Metoclopramide HCl [Reglan] 5 mg PO TID 10/12/18 Oxycodone [Oxyfast] 30 mg PO Q4H PRN 10/12/18 Pregabalin [Lyrica] 50 mg PO BID 10/12/18 Sitagliptin Phosphate [Januvia] 100 mg PO 10/12/18 traZODone [Desyrel] 50 mg PO QHS 10/12/18 Meloxicam 7.5 mg PO BID PRN 05/17/19 Methenamine Hippurate [Hiprex] 1 gm PO BID 05/17/19 Smoking Status: Former smoker Physical Exam Vital Signs Temp Pulse Resp BP 99.3 F H 74 16 123/60 H 09/18/19 09:20 09/18/19 09:20 09/18/19 09:20 09/18/19 09:20 General: Alert, Oriented x3, Cooperative HEENT: Atraumatic, TM's Clear Lungs: Clear to auscultation, Normal air movement Cardiovascular: Regular rate, Regular Rhythm Psych/Mental Status: Normal Affect, Appropriate, Alert and oriented to time, place, person, mood and affect Assessment/Plan Active Problems (Last Reviewed 09/04/19 @ 08:49 by Corazon Lehman) Sacral decubitus ulcer, stage IV (Chronic) Decubitus ulcer of right buttock, stage 4 (Chronic) Decubitus ulcer of left buttock, stage 4 (Chronic) Chronic osteomyelitis involving pelvic region and thigh (Chronic) Paraplegia (Chronic) Treatment Course Number Number of HBO Treatments 40 Ordered Treatment Course Number 1 Treatment # 7 Chamber # [id number] Chamber Type Monoplace Diabetes - Detail Diabetes Diabetes Type II Other - Detail Chronic Refractory Yes: Pelvic region and thigh Osteomyelitis (specify site in comment) Treatment Plan KRISTEN (Atmospheric Absolute) 2 Number of Minutes 90 Number of Air Breaks 0
[2019-09-20 13:30] VITALS: BP 102/56; BP 115/70; PULSE 86; PULSE 87; RESP 16; TEMP 36.8; TEMP 37.2
[2019-09-20 15:16] LABS: Bedside Glucose 118 mg/dL (70-110)
[2019-09-21 09:31] LABS: Bedside Glucose 219 mg/dL (70-110)
[2019-09-21 09:31] LABS: Bedside Glucose 265 mg/dL (70-110)
[2019-09-21 09:35] VITALS: BP 109/77; BP 121/73; PULSE 100; PULSE 82; RESP 16; RESP 18; TEMP 37.3
[2019-09-21 11:41] LABS: Bedside Glucose 169 mg/dL (70-110)
--- NOTE | 2019-09-21 15:33 | PCM.HBO.PN ---
History of Present Illness Date of Service: 09/21/19 Presenting Chief Complaint: Non healing, chronic decubitus pressure ulcers, stage IV, with osteomyelitis - thigh, buttock, sacrum. GABBI CARBAJAL is a 34 year old currently undergoing hyperbaric oxygen therapy for stage IV pressure ulceration and chronic refractory osteomyelitis right posterior proximal thigh/buttock/sacral region. Progress:Today represents 8th hyperbaric oxygen treatment of 40 planned treatments. Tolerance of hyperbaric oxygen therapy: Hyperbaric oxygen treatment was provided as per the facility's protocol at 2.0 KRISTEN and 100% oxygen for 90 minutes. There were no air breaks. The patient tolerated hyperbaric oxygen well, without complications or complaints. Upon emergence of the hyperbaric chamber the patient's vital signs remained stable. Pre and post blood glucose levels as documented. Patient was discharged in good condition. Past Medical History Chronic Problems (Last Reviewed 09/04/19 @ 08:49 by Corazon Lehman) Sacral decubitus ulcer, stage IV (Chronic) Decubitus ulcer of right buttock, stage 4 (Chronic) Decubitus ulcer of left buttock, stage 4 (Chronic) Chronic osteomyelitis involving pelvic region and thigh (Chronic) Paraplegia (Chronic) Allergies/Adverse Reactions: Allergies lidocaine Allergy (Verified 09/03/19 13:05) Unknown Home Medications: Ambulatory Orders Medication Instructions Recorded Sitagliptin Phosphate [Januvia] 100 mg PO DAILY 10/11/17 Baclofen 5 mg PO BID 10/12/18 Diazepam [Valium] 5 mg PO BID 10/12/18 Fentanyl 200 ea TD 10/12/18 Ferrous Sulfate 325 mg PO 10/12/18 Insulin Glargine,Hum.rec.anlog 10 unit SQ 10/12/18 [Lantus Solostar] Insulin Lispro [Humalog KwikPen] unit SQ 10/12/18 Magnesium Oxide [Magnesium] 400 mg PO BID 10/12/18 Melatonin 3 mg PO 10/12/18 Metoclopramide HCl [Reglan] 5 mg PO TID 10/12/18 Oxycodone [Oxyfast] 30 mg PO Q4H PRN 10/12/18 Pregabalin [Lyrica] 50 mg PO BID 10/12/18 Sitagliptin Phosphate [Januvia] 100 mg PO 10/12/18 traZODone [Desyrel] 50 mg PO QHS 10/12/18 Meloxicam 7.5 mg PO BID PRN 05/17/19 Methenamine Hippurate [Hiprex] 1 gm PO BID 05/17/19 Maternal Family History: No pertinent history Lives: Spouse/ Significant Other Smoking Status: Former smoker Tobacco Use: Non-smoker Alcohol: None Drugs: None Physical Exam Vital Signs Temp Pulse Resp BP 99.1 F 100 16 109/77 09/21/19 09:35 09/21/19 09:35 09/21/19 09:35 09/21/19 09:35 General: Alert, Oriented x3, Cooperative, No apparent distress Psych/Mental Status: Normal Affect, Appropriate Assessment/Plan Active Problems (Last Reviewed 09/04/19 @ 08:49 by Corazon Lehman) Sacral decubitus ulcer, stage IV (Chronic) Decubitus ulcer of right buttock, stage 4 (Chronic) Decubitus ulcer of left buttock, stage 4 (Chronic) Chronic osteomyelitis involving pelvic region and thigh (Chronic) Paraplegia (Chronic) The patient appears to be tolerating hyperbaric oxygen therapy, which will be continued as per the patient's medical treatment plan. Treatment Course Number Number of HBO Treatments 40 Ordered Treatment Course Number 1 Treatment # 8 Chamber # 674-40 Chamber Type Monoplace Diabetes - Detail Diabetes Diabetes Type II Other - Detail Chronic Refractory Yes: Pelvic region and Thigh Osteomyelitis (specify site in comment) Treatment Plan KRISTEN (Atmospheric Absolute) 2 Number of Minutes 90 Number of Air Breaks 0
[2019-09-24 09:10] LABS: Bedside Glucose 157 mg/dL (70-110)
[2019-09-24 09:49] VITALS: BP 103/46; BP 112/65; PULSE 95; PULSE 97; RESP 14; RESP 16; TEMP 36.6; TEMP 37
[2019-09-24 11:40] LABS: Bedside Glucose 107 mg/dL (70-110)
--- NOTE | 2019-09-24 13:20 | PCM.HBO.PN ---
History of Present Illness Date of Service: 09/24/19 Presenting Chief Complaint: Non healing, chronic decubitus pressure ulcers, stage IV, with osteomyelitis - thigh, buttock, sacrum. GABBI CARBAJAL is a 34 year old currently undergoing hyperbaric oxygen therapy for stage IV pressure ulceration and chronic refractory osteomyelitis right posterior proximal thigh/buttock/sacral region. Progress:Today represents 9th hyperbaric oxygen treatment of 40 planned treatments. Tolerance of hyperbaric oxygen therapy: Hyperbaric oxygen treatment was provided as per the facility's protocol at 2.0 KRISTEN and 100% oxygen for 90 minutes. There were no air breaks. The patient tolerated hyperbaric oxygen well, without complications or complaints. Upon emergence of the hyperbaric chamber the patient's vital signs remained stable. Pre and post blood glucose levels as documented. Patient was discharged in good condition. Past Medical History Chronic Problems (Last Reviewed 09/04/19 @ 08:49 by Corazon Lehman) Sacral decubitus ulcer, stage IV (Chronic) Decubitus ulcer of right buttock, stage 4 (Chronic) Decubitus ulcer of left buttock, stage 4 (Chronic) Chronic osteomyelitis involving pelvic region and thigh (Chronic) Paraplegia (Chronic) Allergies/Adverse Reactions: Allergies lidocaine Allergy (Verified 09/03/19 13:05) Unknown Home Medications: Ambulatory Orders Medication Instructions Recorded Sitagliptin Phosphate [Januvia] 100 mg PO DAILY 10/11/17 Baclofen 5 mg PO BID 10/12/18 Diazepam [Valium] 5 mg PO BID 10/12/18 Fentanyl 200 ea TD 10/12/18 Ferrous Sulfate 325 mg PO 10/12/18 Insulin Glargine,Hum.rec.anlog 10 unit SQ 10/12/18 [Lantus Solostar] Insulin Lispro [Humalog KwikPen] unit SQ 10/12/18 Magnesium Oxide [Magnesium] 400 mg PO BID 10/12/18 Melatonin 3 mg PO 10/12/18 Metoclopramide HCl [Reglan] 5 mg PO TID 10/12/18 Oxycodone [Oxyfast] 30 mg PO Q4H PRN 10/12/18 Pregabalin [Lyrica] 50 mg PO BID 10/12/18 Sitagliptin Phosphate [Januvia] 100 mg PO 10/12/18 traZODone [Desyrel] 50 mg PO QHS 10/12/18 Meloxicam 7.5 mg PO BID PRN 05/17/19 Methenamine Hippurate [Hiprex] 1 gm PO BID 05/17/19 Maternal Family History: No pertinent history Lives: Spouse/ Significant Other Smoking Status: Former smoker Tobacco Use: Non-smoker Alcohol: None Drugs: None Physical Exam Vital Signs Temp Pulse Resp BP 98.6 F 95 14 112/65 09/24/19 09:49 09/24/19 09:49 09/24/19 09:49 09/24/19 09:49 General: Alert, Oriented x3, Cooperative HEENT: Atraumatic, TM's Clear - Bilateral TM clear. Right ear canal is mildly erythematous. Lungs: Clear to auscultation, Normal air movement Cardiovascular: Regular rate, Regular Rhythm Psych/Mental Status: Normal Affect, Appropriate Assessment/Plan Active Problems (Last Reviewed 09/04/19 @ 08:49 by Corazon Lehman) Sacral decubitus ulcer, stage IV (Chronic) Decubitus ulcer of right buttock, stage 4 (Chronic) Decubitus ulcer of left buttock, stage 4 (Chronic) Chronic osteomyelitis involving pelvic region and thigh (Chronic) Paraplegia (Chronic) The patient appears to be tolerating hyperbaric oxygen therapy, which will be continued as per the patient's medical treatment plan. Treatment Course Number Number of HBO Treatments 40 Ordered Treatment Course Number 1 Treatment # 9 Chamber # 674-40 Chamber Type Monoplace Diabetes - Detail Diabetes Diabetes Type II Other - Detail Chronic Refractory Yes: Pelvic region and Thigh Osteomyelitis (specify site in comment) Treatment Plan KRISTEN (Atmospheric Absolute) 2 Number of Minutes 90 Number of Air Breaks 0 [id number]
[2019-09-25 09:26] LABS: Bedside Glucose 199 mg/dL (70-110)
[2019-09-25 10:24] VITALS: BP 133/58; BP 99/54; PULSE 90; PULSE 99; RESP 16; TEMP 36.6; TEMP 37.2
[2019-09-25 11:31] LABS: Bedside Glucose 137 mg/dL (70-110)
--- NOTE | 2019-09-25 14:36 | PCM.HBO.PN ---
History of Present Illness Date of Service: 09/25/19 Presenting Chief Complaint: Non healing, chronic decubitus pressure ulcers, stage IV, with osteomyelitis - thigh, buttock, sacrum. GABBI CARBAJAL is a 34 year old currently undergoing hyperbaric oxygen therapy for stage IV pressure ulceration and chronic refractory osteomyelitis right posterior proximal thigh/buttock/sacral region. Progress:Today represents 10th hyperbaric oxygen treatment of 40 planned treatments. Tolerance of hyperbaric oxygen therapy: Hyperbaric oxygen treatment was provided as per the facility's protocol at 2.0 KRISTEN and 100% oxygen for 90 minutes. There were no air breaks. The patient tolerated hyperbaric oxygen well, without complications or complaints. Upon emergence of the hyperbaric chamber the patient's vital signs remained stable. Pre and post blood glucose levels as documented. Patient was discharged in good condition. Past Medical History Chronic Problems (Last Reviewed 09/04/19 @ 08:49 by Corazon Lehman) Sacral decubitus ulcer, stage IV (Chronic) Decubitus ulcer of right buttock, stage 4 (Chronic) Decubitus ulcer of left buttock, stage 4 (Chronic) Chronic osteomyelitis involving pelvic region and thigh (Chronic) Paraplegia (Chronic) Allergies/Adverse Reactions: Allergies lidocaine Allergy (Verified 09/03/19 13:05) Unknown Home Medications: Ambulatory Orders Medication Instructions Recorded Sitagliptin Phosphate [Januvia] 100 mg PO DAILY 10/11/17 Baclofen 5 mg PO BID 10/12/18 Diazepam [Valium] 5 mg PO BID 10/12/18 Fentanyl 200 ea TD 10/12/18 Ferrous Sulfate 325 mg PO 10/12/18 Insulin Glargine,Hum.rec.anlog 10 unit SQ 10/12/18 [Lantus Solostar] Insulin Lispro [Humalog KwikPen] unit SQ 10/12/18 Magnesium Oxide [Magnesium] 400 mg PO BID 10/12/18 Melatonin 3 mg PO 10/12/18 Metoclopramide HCl [Reglan] 5 mg PO TID 10/12/18 Oxycodone [Oxyfast] 30 mg PO Q4H PRN 10/12/18 Pregabalin [Lyrica] 50 mg PO BID 10/12/18 Sitagliptin Phosphate [Januvia] 100 mg PO 10/12/18 traZODone [Desyrel] 50 mg PO QHS 10/12/18 Meloxicam 7.5 mg PO BID PRN 05/17/19 Methenamine Hippurate [Hiprex] 1 gm PO BID 05/17/19 Maternal Family History: No pertinent history Lives: Spouse/ Significant Other Smoking Status: Former smoker Tobacco Use: Non-smoker Alcohol: None Drugs: None Physical Exam Vital Signs Temp Pulse Resp BP 98.9 F 99 16 99/54 L 09/25/19 10:24 09/25/19 10:24 09/25/19 10:24 09/25/19 10:24 General: Alert, Oriented x3, Cooperative, No apparent distress, Well developed HEENT: Atraumatic, PERRLA, EOMI, Normocephalic Lungs: Normal air movement Psych/Mental Status: Normal Affect, Appropriate, Alert and oriented to time, place, person, mood and affect Assessment/Plan Active Problems (Last Reviewed 09/04/19 @ 08:49 by Corazon Lehman) Sacral decubitus ulcer, stage IV (Chronic) Decubitus ulcer of right buttock, stage 4 (Chronic) Decubitus ulcer of left buttock, stage 4 (Chronic) Chronic osteomyelitis involving pelvic region and thigh (Chronic) Paraplegia (Chronic) The patient appears to be tolerating hyperbaric oxygen therapy well, which will be continued as per the patient's medical plan. Treatment Course Number Number of HBO Treatments 40 Ordered Treatment Course Number 1 Treatment # 10 Chamber # 674-40 Chamber Type Monoplace Diabetes - Detail Diabetes Diabetes Type II Other - Detail Chronic Refractory Yes: Pelvic region and Thigh Osteomyelitis (specify site in comment) Treatment Plan KRISTEN (Atmospheric Absolute) 2 Number of Minutes 90 Number of Air Breaks 0
[2019-09-26 10:45] LABS: Bedside Glucose 183 mg/dL (70-110)
[2019-09-26 11:08] VITALS: BP 106/61; BP 107/54; PULSE 105; PULSE 99; RESP 16; TEMP 36.9; TEMP 37.6
--- NOTE | 2019-09-26 12:34 | PCM.HBO.PN ---
History of Present Illness Date of Service: 09/26/19 Presenting Chief Complaint: Non healing, chronic decubitus pressure ulcers, stage IV, with osteomyelitis - thigh, buttock, sacrum. GABBI CARBAJAL is a 34 year old currently undergoing hyperbaric oxygen therapy for stage IV pressure ulceration and chronic refractory osteomyelitis right posterior proximal thigh/buttock/sacral region. Progress:Today represents 11th hyperbaric oxygen treatment of 40 planned treatments. Tolerance of hyperbaric oxygen therapy: Hyperbaric oxygen treatment was provided as per the facility's protocol at 2.0 KRISTEN and 100% oxygen for 90 minutes. There were no air breaks. The patient tolerated hyperbaric oxygen well, without complications or complaints. Upon emergence of the hyperbaric chamber the patient's vital signs remained stable. Pre and post blood glucose levels as documented. Patient was discharged in good condition. Past Medical History Chronic Problems (Last Reviewed 09/04/19 @ 08:49 by Corazon Lehman) Sacral decubitus ulcer, stage IV (Chronic) Decubitus ulcer of right buttock, stage 4 (Chronic) Decubitus ulcer of left buttock, stage 4 (Chronic) Chronic osteomyelitis involving pelvic region and thigh (Chronic) Paraplegia (Chronic) Allergies/Adverse Reactions: Allergies lidocaine Allergy (Verified 09/03/19 13:05) Unknown Home Medications: Ambulatory Orders Medication Instructions Recorded Sitagliptin Phosphate [Januvia] 100 mg PO DAILY 10/11/17 Baclofen 5 mg PO BID 10/12/18 Diazepam [Valium] 5 mg PO BID 10/12/18 Fentanyl 200 ea TD 10/12/18 Ferrous Sulfate 325 mg PO 10/12/18 Insulin Glargine,Hum.rec.anlog 10 unit SQ 10/12/18 [Lantus Solostar] Insulin Lispro [Humalog KwikPen] unit SQ 10/12/18 Magnesium Oxide [Magnesium] 400 mg PO BID 10/12/18 Melatonin 3 mg PO 10/12/18 Metoclopramide HCl [Reglan] 5 mg PO TID 10/12/18 Oxycodone [Oxyfast] 30 mg PO Q4H PRN 10/12/18 Pregabalin [Lyrica] 50 mg PO BID 10/12/18 Sitagliptin Phosphate [Januvia] 100 mg PO 10/12/18 traZODone [Desyrel] 50 mg PO QHS 10/12/18 Meloxicam 7.5 mg PO BID PRN 05/17/19 Methenamine Hippurate [Hiprex] 1 gm PO BID 05/17/19 Maternal Family History: No pertinent history Lives: Spouse/ Significant Other Smoking Status: Former smoker Tobacco Use: Non-smoker Alcohol: None Drugs: None Physical Exam Vital Signs Temp Pulse Resp BP 99.6 F H 99 16 107/54 L 09/26/19 11:08 09/26/19 11:08 09/26/19 11:08 09/26/19 11:08 Assessment/Plan Active Problems (Last Reviewed 09/04/19 @ 08:49 by Corazon Lehman) Sacral decubitus ulcer, stage IV (Chronic) Decubitus ulcer of right buttock, stage 4 (Chronic) Decubitus ulcer of left buttock, stage 4 (Chronic) Chronic osteomyelitis involving pelvic region and thigh (Chronic) Paraplegia (Chronic) The patient appears to be tolerating hyperbaric oxygen therapy well, which will be continued as per the patient's medical plan. Treatment Course Number Number of HBO Treatments 40 Ordered Treatment Course Number 1 Treatment # 11 Chamber # [id number] Chamber Type Monoplace Diabetes - Detail Diabetes Diabetes Type II Other - Detail Chronic Refractory Yes: Pelvic region and Thigh Osteomyelitis (specify site in comment) Treatment Plan KRISTEN (Atmospheric Absolute) 2 Number of Minutes 90 Number of Air Breaks 0
[2019-09-26 12:45] LABS: Bedside Glucose 92 mg/dL (70-110)
[2019-09-27 09:25] VITALS: BP 115/55; PULSE 98; RESP 18; TEMP 36.5; BMI 21.8
[2019-09-27 10:45] LABS: Bedside Glucose 152 mg/dL (70-110)
--- NOTE | 2019-09-27 10:57 | PN.PCM_ITS ---
(1) Chronic osteomyelitis involving pelvic region and thigh Status: Chronic Current Visit: Yes Code(s): M86.659 - Other chronic osteomyelitis, unspecified thigh (2) Decubitus ulcer of left buttock, stage 4 Status: Chronic Current Visit: Yes Code(s): L89.324 - Pressure ulcer of left buttock, stage 4 (3) Decubitus ulcer of right buttock, stage 4 Status: Chronic Current Visit: Yes Code(s): L89.314 - Pressure ulcer of right buttock, stage 4 (4) Paraplegia Status: Chronic Current Visit: Yes Code(s): G82.20 - Paraplegia, unspecified (5) Sacral decubitus ulcer, stage IV Status: Chronic Current Visit: Yes Code(s): L89.154 - Pressure ulcer of sacral region, stage 4 Type of Wound Date of Service: 09/27/19 Chief Complaint: Non healing, chronic decubitus pressure ulcers, stage IV, with osteomyelitis - thigh, buttock, sacrum. History of Wound: Mr. Joyce is a 33yo well known to the wound center but was last seen here over a month ago. Initial sacral ulcer was said to have started in November and Buttock ulcers were noted subsequently. He has had an extensive hospital stay over the last couple of months following a work related injury. Both during his hopsital and longterm stays, he had wound care ranging from surgical debridement, wound vac and collagen use. He was scheduled to be restarted on his wound Vac prior to his discharge from the [facility]. He reports significant drainage from the wounds. Also of note is a history of osteomyelitis for which he was on a 6 week IV antibiotic. His however states they were informed that he had developed chronic extensive pelvic area osteomyelitis. He feels well otherwise at this time and denies chills, fever,nausea, vomitting or change in bowel habit. 02/22/2019: Above, he was last seen here over a month ago. Had an extensive hospital stay [facility] due to complications from prior neck surgery. They state that his ulcers have been stable. Been doing the acetic acid soak for 10 minutes and then calcium alginate/collagen dressings. Is any concerns at this time. Progress of Wound: No new concerns in regards to ulcers. Tolerating HBO well. - Physical Exam Vital Signs Temp Pulse Resp BP 97.7 F L 98 18 115/55 L 07/16/20 09:25 09/27/19 09:25 09/27/19 09:25 09/27/19 09:25 General: Alert, Oriented x3, Cooperative, No apparent distress HEENT: Atraumatic, Normocephalic Oral: Moist Mucosa Neck: Supple Lungs: Normal air movement Extremities: No cyanosis Wound Measurements and Assessment WC - Nurse 1 - General Ulcer Measurement Start: 09/12/19 14:10 Freq: Status: Active Protocol: Activity Type Activity Date Activity User E-Sign Co-Sign Detail Recorded Client Recorded Date Recorded By Document 09/27/19 09:25 PL [id number] 09/27/19 09:46 PL 09/27/19 09:25 Wound Center Nurse 1 [Ulcer Assessment] #7 Sacral -Current Size (cm) - Length 6.0 -Current Size (cm) - Width 12.0 -Current Size (cm) - Depth 1.0 -Total Square Cm 72.00 -Undermining/Tunneling Yes -Undermining/Tunneling Starts (O' 1 clock) -Undermining/Tunneling Ends (O'clock) 2 -Maximum Distance (cm) 3 -Wound Margin Thickened & Rolled Under -Granulation Amt Large (67-100%) -Granulation Quality Goehner,Red -Texture (Sheyla-wound Skin Appearance) No Abnormality -Moisture (Sheyla-wound Skin Appearance No Abnormality ) -Color (Sheyla-wound Skin Appearance) No Abnormality -Temperature (Sheyla-wound Skin No Abnormality Appearance) (Pt Warm) -Ulcer Cleansing Rinsed/ Irrigated with Saline -Foul Odor after Cleansing No #6 R Buttocks -Combined with other wound No -Current Size (cm) - Length 8.0 -Current Size (cm) - Width 5.5 -Current Size (cm) - Depth 0.5 -Total Square Cm 44.00 -Photo Taken No -Epithelialization None Present -Tunneling No -Undermining/Tunneling No -Exudate Amt Large -Exudate Type Serosanguineous -Granulation Amt Large (67-100%) -Granulation Quality Goehner,Red -Slough/Fibrin Yes -Necrosis Amt Small (1-33%) -Necrotic Tissue Type Adherent Slough -Texture (Sheyla-wound Skin Appearance) No Abnormality -Moisture (Sheyla-wound Skin Appearance No Abnormality ) -Color (Sheyla-wound Skin Appearance) No Abnormality -Temperature (Sheyla-wound Skin No Abnormality Appearance) (Pt Warm) -Ulcer Cleansing Rinsed/ Irrigated with Saline -Foul Odor after Cleansing No #5 L Buttocks -Current Size (cm) - Length 8.5 -Current Size (cm) - Width 4.0 -Current Size (cm) - Depth 1.6 -Total Square Cm 34.00 -Photo Taken No -Epithelialization None Present -Tunneling No -Undermining/Tunneling No -Exudate Amt Large -Exudate Type Serosanguineous -Granulation Amt Large (67-100%) -Granulation Quality Goehner,Red -Necrosis Amt None Present (0 %) -Necrotic Tissue Type Adherent Slough -Texture (Sheyla-wound Skin Appearance) No Abnormality -Moisture (Sheyla-wound Skin Appearance No Abnormality ) -Color (Sheyla-wound Skin Appearance) No Abnormality -Temperature (Sheyla-wound Skin No Abnormality Appearance) (Pt Warm) -Ulcer Cleansing Rinsed/ Irrigated with Saline -Foul Odor after Cleansing No WC - Nurse 2 - General Ulcer CM Notes Start: 09/12/19 14:10 Freq: Status: Active Protocol: Activity Type Activity Date Activity User E-Sign Co-Sign Detail Recorded Client Recorded Date Recorded By Document 09/27/19 09:57 MW [id number] 09/27/19 10:03 MW 09/27/19 09:57 Wound Center Nurse 2 [Procedure/Treatment] #7 Sacral -Time 09:57 -Correct Patient Yes -Correct Side, Site, Position Yes -Correct Procedure Yes -Procedure Performed Yes -Type of Procedure Debridement -Clinical Debridement Subcutaneous -Post Debridement Size (cm) - Length 6.6 -Post Debridement Size (cm) - Width 14.0 -Post Debridement Size (cm) - Depth 1.5 -Total Square Cm 92.40 -Wound/Ulcer Outcome Not Healed -Ulcer Cleansing Rinsed/ Irrigated with Saline -Foul Odor after Cleansing No -Bioengineered Tissue No -Bleeding Controlled with Pressure -Offloading No -Treatment Response Procedure Tolerated Well #6 R Buttocks -Time 09:57 -Correct Patient Yes -Correct Side, Site, Position Yes -Correct Procedure Yes -Procedure Performed Yes -Type of Procedure Debridement -Clinical Debridement Subcutaneous -Post Debridement Size (cm) - Length 8.5 -Post Debridement Size (cm) - Width 5.5 -Post Debridement Size (cm) - Depth 1.4 -Total Square Cm 46.75 -Wound/Ulcer Outcome Not Healed -Ulcer Cleansing Rinsed/ Irrigated with Saline -Foul Odor after Cleansing No -Bioengineered Tissue No -Bleeding Controlled with Pressure -Offloading No -Treatment Response Procedure Tolerated Well #5 L Buttocks -Time 09:57 -Correct Patient Yes -Correct Side, Site, Position Yes -Correct Procedure Yes -Procedure Performed Yes -Type of Procedure Debridement -Clinical Debridement Subcutaneous -Post Debridement Size (cm) - Length 8.5 -Post Debridement Size (cm) - Width 6.5 -Post Debridement Size (cm) - Depth 2.3 -Total Square Cm 55.25 -Wound/Ulcer Outcome Not Healed -Ulcer Cleansing Rinsed/ Irrigated with Saline -Foul Odor after Cleansing No -Bioengineered Tissue No -Bleeding Controlled with Pressure -Offloading No -Treatment Response Procedure Tolerated Well [See Physician Procedure note for Specifics] Pain Scale: 0-10 Numeric [Pain] -Is Patient Pain Free? Yes Musculoskeletal: No Muscle Wasting Neurological: Cranial nerves II-XII grossly intact Psych/Mental Status: Normal Affect Debridement Note Post-Debridement Measurements/Treatment WC - Nurse 2 - General Ulcer CM Notes Start: 09/12/19 14:10 Freq: Status: Active Protocol: Activity Type Activity Date Activity User E-Sign Co-Sign Detail Recorded Client Recorded Date Recorded By Document 09/13/19 11:47 MW [id number] 09/13/19 11:51 MW Document 09/27/19 09:57 MW [id number] 09/27/19 10:03 MW 09/13/19 09/27/19 11:47 09:57 Wound Center Nurse 2 #7 Sacral -Time 11:48 09:57 -Correct Patient Yes Yes -Correct Side, Site, Position Yes Yes -Correct Procedure Yes Yes -Procedure Performed Yes Yes -Type of Procedure Debridement Debridement -Clinical Debridement Subcutaneous Subcutaneous -Post Debridement Size (cm) - Length 7.5 6.6 -Post Debridement Size (cm) - Width 14.0 14.0 -Post Debridement Size (cm) - Depth 1.5 1.5 -Total Square Cm 105.00 92.40 -Wound/Ulcer Outcome Not Healed Not Healed -Ulcer Cleansing Rinsed/ Rinsed/ Irrigated with Irrigated with Saline Saline -Foul Odor after Cleansing No No -Bioengineered Tissue No No -Bleeding Controlled with Pressure Pressure -Offloading No No -Treatment Response Procedure Procedure Tolerated Well Tolerated Well #6 R Buttocks -Time 11:48 09:57 -Correct Patient Yes Yes -Correct Side, Site, Position Yes Yes -Correct Procedure Yes Yes -Procedure Performed Yes Yes -Type of Procedure Debridement Debridement -Clinical Debridement Subcutaneous Subcutaneous -Post Debridement Size (cm) - Length 9.0 8.5 -Post Debridement Size (cm) - Width 5.0 5.5 -Post Debridement Size (cm) - Depth 1.5 1.4 -Total Square Cm 45.00 46.75 -Wound/Ulcer Outcome Not Healed Not Healed -Ulcer Cleansing Rinsed/ Rinsed/ Irrigated with Irrigated with Saline Saline -Foul Odor after Cleansing No No -Bioengineered Tissue No No -Bleeding Controlled with Pressure Pressure -Offloading No No -Treatment Response Procedure Procedure Tolerated Well Tolerated Well #5 L Buttocks -Time 11:48 09:57 -Correct Patient Yes Yes -Correct Side, Site, Position Yes Yes -Correct Procedure Yes Yes -Procedure Performed Yes Yes -Type of Procedure Debridement Debridement -Clinical Debridement Subcutaneous Subcutaneous -Post Debridement Size (cm) - Length 9.0 8.5 -Post Debridement Size (cm) - Width 6.0 6.5 -Post Debridement Size (cm) - Depth 2.3 2.3 -Total Square Cm 54.00 55.25 -Wound/Ulcer Outcome Not Healed Not Healed -Ulcer Cleansing Rinsed/ Rinsed/ Irrigated with Irrigated with Saline Saline -Foul Odor after Cleansing No No -Bioengineered Tissue No No -Bleeding Controlled with Pressure Pressure -Offloading No No -Treatment Response Procedure Procedure Tolerated Well Tolerated Well Pain Scale: 0-10 Numeric Is Patient Pain Free? Yes Yes Wound debrided: Sacral Wound Grade/Stage: Stage IV Type of Debridement: Excisional debridement Anesthesia Used: 4% Lidocaine Solution Depth: Down to and including healthy tissue, in the subcutaneous layer Percentage of wound debrided: 100 Instrument Used: 7mm curette Tissue Removed: Slough and devitalized tissue Severity: Fat Layer Exposed Amount of bleeding with debridement: Mild Bleeding Controlled with: Pressure Patient tolerated procedure well - Additional Wound Wound debrided: Left Buttock Wound Grade/Stage: Stage IV Type of Debridement: Excisional debridement Anesthesia Used: 4% Lidocaine Solution Depth: Down to and including healthy tissue, in the subcutaneous layer Percentage of wound debrided: 100 Instrument Used: 7mm curette Tissue Removed: Slough and devitalized tissue Severity: Fat Layer Exposed Amount of bleeding with debridement: Mild Bleeding Controlled with: Pressure Patient tolerated procedure: Patient tolerated procedure well - Additional Wound Wound debrided: Right Buttock Wound Grade/Stage: Stage IV Type of Debridement: Excisional debridement Anesthesia Used: 4% Lidocaine Solution Depth: Down to and including healthy tissue, in the subcutaneous layer Percentage of wound debrided: 100 Instrument Used: 7mm curette Tissue Removed: Slough and devitalized tissue Severity: Fat Layer Exposed Amount of bleeding with debridement: Mild Bleeding Controlled with: Pressure Patient tolerated procedure: Patient tolerated procedure well Assessment/Plan Active Problems (Last Reviewed 09/04/19 @ 08:49 by Corazon Lehman) Sacral decubitus ulcer, stage IV (Chronic) Decubitus ulcer of right buttock, stage 4 (Chronic) Decubitus ulcer of left buttock, stage 4 (Chronic) Chronic osteomyelitis involving pelvic region and thigh (Chronic) Paraplegia (Chronic) Assessment: Same as above. Plan: Stable ulcers. Debridement done as documented above, procedure well- tolerated. Continue 10 minute Acetic acid soak to all ulcers then calcium alginate/collagen dressing. Change daily to twice daily depending on drainage. Due to his chronic osteomyeliis Carlos Manuel is a good candidate for HBO theray. Had 4 sessions and tolerating them well so far. Continue optimal dietary and protein intake. Offloading also recommended. His questions were answered and they were advised to call with any further questions or concerns. Follow up in 2 weeks. This note was generated with [employer] dictation software. It may contain incorrect words, spelling, and punctuation that were not noted in checking the note before signing. [id number]: [id number] Oxana subq tissue 20 sq cm/< Add On Codes: [id number] Oxana musc/fascia add-on - Additional Sq Cm debrided, please refer to clinical note.
[2019-09-27 11:04] VITALS: BP 115/55; BP 117/51; PULSE 93; PULSE 98; RESP 18; TEMP 36.4; TEMP 36.6
--- NOTE | 2019-09-27 11:07 | PCM.HBO.PN ---
History of Present Illness Date of Service: 09/27/19 Presenting Chief Complaint: Non healing, chronic decubitus pressure ulcers, stage IV, with osteomyelitis - thigh, buttock, sacrum. GABBI CARBAJAL is a 34 year old currently undergoing hyperbaric oxygen therapy for stage IV pressure ulceration and chronic refractory osteomyelitis right posterior proximal thigh/buttock/sacral region. Progress:Today represents 12th hyperbaric oxygen treatment of 40 planned treatments. Tolerance of hyperbaric oxygen therapy: Hyperbaric oxygen treatment was provided as per the facility's protocol at 2.0 KRISTEN and 100% oxygen for 90 minutes. There were no air breaks. The patient tolerated hyperbaric oxygen well, without complications or complaints. Upon emergence of the hyperbaric chamber the patient's vital signs remained stable. Pre and post blood glucose levels as documented. Patient was discharged in good condition. Past Medical History Chronic Problems (Last Reviewed 09/04/19 @ 08:49 by Corazon Lehman) Sacral decubitus ulcer, stage IV (Chronic) Decubitus ulcer of right buttock, stage 4 (Chronic) Decubitus ulcer of left buttock, stage 4 (Chronic) Chronic osteomyelitis involving pelvic region and thigh (Chronic) Paraplegia (Chronic) Allergies/Adverse Reactions: Allergies lidocaine Allergy (Verified 09/03/19 13:05) Unknown Home Medications: Ambulatory Orders Medication Instructions Recorded Sitagliptin Phosphate [Januvia] 100 mg PO DAILY 10/11/17 Baclofen 5 mg PO BID 10/12/18 Diazepam [Valium] 5 mg PO BID 10/12/18 Fentanyl 200 ea TD 10/12/18 Ferrous Sulfate 325 mg PO 10/12/18 Insulin Glargine,Hum.rec.anlog 10 unit SQ 10/12/18 [Lantus Solostar] Insulin Lispro [Humalog KwikPen] unit SQ 10/12/18 Magnesium Oxide [Magnesium] 400 mg PO BID 10/12/18 Melatonin 3 mg PO 10/12/18 Metoclopramide HCl [Reglan] 5 mg PO TID 10/12/18 Oxycodone [Oxyfast] 30 mg PO Q4H PRN 10/12/18 Pregabalin [Lyrica] 50 mg PO BID 10/12/18 Sitagliptin Phosphate [Januvia] 100 mg PO 10/12/18 traZODone [Desyrel] 50 mg PO QHS 10/12/18 Meloxicam 7.5 mg PO BID PRN 05/17/19 Methenamine Hippurate [Hiprex] 1 gm PO BID 05/17/19 Maternal Family History: No pertinent history Lives: Spouse/ Significant Other Smoking Status: Former smoker Tobacco Use: Non-smoker Alcohol: None Drugs: None Physical Exam Vital Signs Temp Pulse Resp BP 97.7 F L 98 18 115/55 L 09/27/19 09:25 09/27/19 09:25 09/27/19 09:25 09/27/19 09:25 General: Alert, Oriented x3, Cooperative, No apparent distress HEENT: Atraumatic, Normocephalic Lungs: Normal air movement Psych/Mental Status: Normal Affect Assessment/Plan Active Problems (Last Reviewed 09/04/19 @ 08:49 by Corazon Lehman) Sacral decubitus ulcer, stage IV (Chronic) Decubitus ulcer of right buttock, stage 4 (Chronic) Decubitus ulcer of left buttock, stage 4 (Chronic) Chronic osteomyelitis involving pelvic region and thigh (Chronic) Paraplegia (Chronic) The patient appears to be tolerating hyperbaric oxygen therapy well, which will be continued as per the patient's medical plan. Treatment Course Number Number of HBO Treatments 40 Ordered Treatment Course Number 1 Treatment # 12 Chamber # [id number] Chamber Type Monoplace Diabetes - Detail Diabetes Diabetes Type II Other - Detail Chronic Refractory Yes: Pelvic region and Thigh Osteomyelitis (specify site in comment) Treatment Plan KRISTEN (Atmospheric Absolute) 2 Number of Minutes 90 Number of Air Breaks 0 Multi Select Codes - Addendum HBO supervision.
[2019-09-27 12:46] LABS: Bedside Glucose 82 mg/dL (70-110)
[2019-09-28 10:36] LABS: Bedside Glucose 209 mg/dL (70-110)
[2019-09-28 12:46] LABS: Bedside Glucose 160 mg/dL (70-110)
[2019-09-28 12:51] VITALS: BP 129/77; BP 140/83; PULSE 110; PULSE 82; RESP 18; TEMP 36.7; TEMP 36.8
--- NOTE | 2019-09-28 16:20 | PCM.HBO.PN ---
History of Present Illness Date of Service: 09/28/19 Presenting Chief Complaint: Non healing, chronic decubitus pressure ulcers, stage IV, with osteomyelitis - thigh, buttock, sacrum. GABBI CARBAJAL is a 34 year old currently undergoing hyperbaric oxygen therapy for stage IV pressure ulceration and chronic refractory osteomyelitis right posterior proximal thigh/buttock/sacral region. Progress:Today represents 12th hyperbaric oxygen treatment of 40 planned treatments. Tolerance of hyperbaric oxygen therapy: Hyperbaric oxygen treatment was provided as per the facility's protocol at 2.0 KRISTEN and 100% oxygen for 90 minutes. There were no air breaks. The patient tolerated hyperbaric oxygen well, without complications or complaints. Upon emergence of the hyperbaric chamber the patient's vital signs remained stable. Pre and post blood glucose levels as documented. Patient was discharged in good condition. Past Medical History Chronic Problems (Last Reviewed 09/04/19 @ 08:49 by Corazon Lehman) Sacral decubitus ulcer, stage IV (Chronic) Decubitus ulcer of right buttock, stage 4 (Chronic) Decubitus ulcer of left buttock, stage 4 (Chronic) Chronic osteomyelitis involving pelvic region and thigh (Chronic) Paraplegia (Chronic) Allergies/Adverse Reactions: Allergies lidocaine Allergy (Verified 09/03/19 13:05) Unknown Home Medications: Ambulatory Orders Medication Instructions Recorded Sitagliptin Phosphate [Januvia] 100 mg PO DAILY 10/11/17 Baclofen 5 mg PO BID 10/12/18 Diazepam [Valium] 5 mg PO BID 10/12/18 Fentanyl 200 ea TD 10/12/18 Ferrous Sulfate 325 mg PO 10/12/18 Insulin Glargine,Hum.rec.anlog 10 unit SQ 10/12/18 [Lantus Solostar] Insulin Lispro [Humalog KwikPen] unit SQ 10/12/18 Magnesium Oxide [Magnesium] 400 mg PO BID 10/12/18 Melatonin 3 mg PO 10/12/18 Metoclopramide HCl [Reglan] 5 mg PO TID 10/12/18 Oxycodone [Oxyfast] 30 mg PO Q4H PRN 10/12/18 Pregabalin [Lyrica] 50 mg PO BID 10/12/18 Sitagliptin Phosphate [Januvia] 100 mg PO 10/12/18 traZODone [Desyrel] 50 mg PO QHS 10/12/18 Meloxicam 7.5 mg PO BID PRN 05/17/19 Methenamine Hippurate [Hiprex] 1 gm PO BID 05/17/19 Maternal Family History: No pertinent history Lives: Spouse/ Significant Other Smoking Status: Former smoker Tobacco Use: Non-smoker Alcohol: None Drugs: None Physical Exam Vital Signs Temp Pulse Resp BP 98.2 F 110 H 18 129/77 H 09/28/19 12:51 09/28/19 12:51 09/28/19 12:51 09/28/19 12:51 General: Alert, Oriented x3, Cooperative, No apparent distress Psych/Mental Status: Normal Affect, Appropriate Assessment/Plan Active Problems (Last Reviewed 09/04/19 @ 08:49 by Corazon Lehman) Sacral decubitus ulcer, stage IV (Chronic) Decubitus ulcer of right buttock, stage 4 (Chronic) Decubitus ulcer of left buttock, stage 4 (Chronic) Chronic osteomyelitis involving pelvic region and thigh (Chronic) Paraplegia (Chronic) The patient appears to be tolerating hyperbaric oxygen therapy well, which will be continued as per the patient's medical plan. Treatment Course Number Number of HBO Treatments 40 Ordered Treatment Course Number 1 Treatment # 13 Chamber # [id number] Chamber Type Monoplace Diabetes - Detail Diabetes Diabetes Type II Other - Detail Chronic Refractory Yes Osteomyelitis (specify site in comment) Treatment Plan KRISTEN (Atmospheric Absolute) 2.0 Number of Minutes 90 Number of Air Breaks 0
[2019-10-02 12:54] VITALS: BP 103/49; BP 85/54; PULSE 106; PULSE 87; RESP 16; TEMP 36.6; TEMP 37
--- NOTE | 2019-10-02 13:02 | PCM.HBO.PN ---
History of Present Illness Date of Service: 10/02/19 Presenting Chief Complaint: Non healing, chronic decubitus pressure ulcers, stage IV, with osteomyelitis - thigh, buttock, sacrum. GABBI CARBAJAL is a 34 year old currently undergoing hyperbaric oxygen therapy for stage IV pressure ulceration and chronic refractory osteomyelitis right posterior proximal thigh/buttock/sacral region. Progress:Today represents 13th hyperbaric oxygen treatment of 40 planned treatments. Tolerance of hyperbaric oxygen therapy: Hyperbaric oxygen treatment was provided as per the facility's protocol at 2.0 KRISTEN and 100% oxygen for 90 minutes. There were no air breaks. The patient tolerated hyperbaric oxygen well, without complications or complaints. Upon emergence of the hyperbaric chamber the patient's vital signs remained stable. Pre and post blood glucose levels as documented. Patient was discharged in good condition. Past Medical History Chronic Problems (Last Reviewed 09/04/19 @ 08:49 by Corazon Lehman) Sacral decubitus ulcer, stage IV (Chronic) Decubitus ulcer of right buttock, stage 4 (Chronic) Decubitus ulcer of left buttock, stage 4 (Chronic) Chronic osteomyelitis involving pelvic region and thigh (Chronic) Paraplegia (Chronic) Allergies/Adverse Reactions: Allergies lidocaine Allergy (Verified 09/03/19 13:05) Unknown Home Medications: Ambulatory Orders Medication Instructions Recorded Sitagliptin Phosphate [Januvia] 100 mg PO DAILY 10/11/17 Baclofen 5 mg PO BID 10/12/18 Diazepam [Valium] 5 mg PO BID 10/12/18 Fentanyl 200 ea TD 10/12/18 Ferrous Sulfate 325 mg PO 10/12/18 Insulin Glargine,Hum.rec.anlog 10 unit SQ 10/12/18 [Lantus Solostar] Insulin Lispro [Humalog KwikPen] unit SQ 10/12/18 Magnesium Oxide [Magnesium] 400 mg PO BID 10/12/18 Melatonin 3 mg PO 10/12/18 Metoclopramide HCl [Reglan] 5 mg PO TID 10/12/18 Oxycodone [Oxyfast] 30 mg PO Q4H PRN 10/12/18 Pregabalin [Lyrica] 50 mg PO BID 10/12/18 Sitagliptin Phosphate [Januvia] 100 mg PO 10/12/18 traZODone [Desyrel] 50 mg PO QHS 10/12/18 Meloxicam 7.5 mg PO BID PRN 05/17/19 Methenamine Hippurate [Hiprex] 1 gm PO BID 05/17/19 Maternal Family History: No pertinent history Lives: Spouse/ Significant Other Smoking Status: Former smoker Tobacco Use: Non-smoker Alcohol: None Drugs: None Physical Exam Vital Signs Temp Pulse Resp BP 97.8 F 106 H 16 85/54 L 10/02/19 12:54 10/02/19 12:54 10/02/19 12:54 10/02/19 12:54 General: Alert, Oriented x3, Cooperative, No apparent distress, Well developed, Well nourished HEENT: Atraumatic, PERRLA, EOMI, Normocephalic Lungs: Normal air movement Psych/Mental Status: Normal Affect, Appropriate, Alert and oriented to time, place, person, mood and affect Assessment/Plan Active Problems (Last Reviewed 09/04/19 @ 08:49 by Corazon Lehman) Sacral decubitus ulcer, stage IV (Chronic) Decubitus ulcer of right buttock, stage 4 (Chronic) Decubitus ulcer of left buttock, stage 4 (Chronic) Chronic osteomyelitis involving pelvic region and thigh (Chronic) Paraplegia (Chronic) The patient appears to be tolerating hyperbaric oxygen therapy well, which will be continued as per the patient's medical plan. Treatment Course Number Number of HBO Treatments 40 Ordered Treatment Course Number 1 Treatment # 13 Chamber # 2 Chamber Type Monoplace Diabetes - Detail Diabetes Diabetes Type II Other - Detail Chronic Refractory Yes Osteomyelitis (specify site in comment) Treatment Plan KRISTEN (Atmospheric Absolute) 2 Number of Minutes 90 Number of Air Breaks 0
[2019-10-03 10:11] LABS: Bedside Glucose 153 mg/dL (70-110)
--- NOTE | 2019-10-03 12:15 | PCM.HBO.PN ---
History of Present Illness Date of Service: 10/03/19 Presenting Chief Complaint: Non healing, chronic decubitus pressure ulcers, stage IV, with osteomyelitis - thigh, buttock, sacrum. GABBI CARBAJAL is a 34 year old currently undergoing hyperbaric oxygen therapy for stage IV pressure ulceration and chronic refractory osteomyelitis right posterior proximal thigh/buttock/sacral region. Progress:Today represents 13th hyperbaric oxygen treatment of 40 planned treatments. Tolerance of hyperbaric oxygen therapy: Hyperbaric oxygen treatment was provided as per the facility's protocol at 2.0 KRISTEN and 100% oxygen for 90 minutes. There were no air breaks. The patient tolerated hyperbaric oxygen well, without complications or complaints. Upon emergence of the hyperbaric chamber the patient's vital signs remained stable. Pre and post blood glucose levels as documented. Patient was discharged in good condition. Past Medical History Chronic Problems (Last Reviewed 09/04/19 @ 08:49 by Corazon Lehman) Sacral decubitus ulcer, stage IV (Chronic) Decubitus ulcer of right buttock, stage 4 (Chronic) Decubitus ulcer of left buttock, stage 4 (Chronic) Chronic osteomyelitis involving pelvic region and thigh (Chronic) Paraplegia (Chronic) Allergies/Adverse Reactions: Allergies lidocaine Allergy (Verified 09/03/19 13:05) Unknown Home Medications: Ambulatory Orders Medication Instructions Recorded Sitagliptin Phosphate [Januvia] 100 mg PO DAILY 10/11/17 Baclofen 5 mg PO BID 10/12/18 Diazepam [Valium] 5 mg PO BID 10/12/18 Fentanyl 200 ea TD 10/12/18 Ferrous Sulfate 325 mg PO 10/12/18 Insulin Glargine,Hum.rec.anlog 10 unit SQ 10/12/18 [Lantus Solostar] Insulin Lispro [Humalog KwikPen] unit SQ 10/12/18 Magnesium Oxide [Magnesium] 400 mg PO BID 10/12/18 Melatonin 3 mg PO 10/12/18 Metoclopramide HCl [Reglan] 5 mg PO TID 10/12/18 Oxycodone [Oxyfast] 30 mg PO Q4H PRN 10/12/18 Pregabalin [Lyrica] 50 mg PO BID 10/12/18 Sitagliptin Phosphate [Januvia] 100 mg PO 10/12/18 traZODone [Desyrel] 50 mg PO QHS 10/12/18 Meloxicam 7.5 mg PO BID PRN 05/17/19 Methenamine Hippurate [Hiprex] 1 gm PO BID 05/17/19 Maternal Family History: No pertinent history Lives: Spouse/ Significant Other Smoking Status: Former smoker Tobacco Use: Non-smoker Alcohol: None Drugs: None Physical Exam Vital Signs Temp Pulse Resp BP 97.8 F 106 H 16 85/54 L 10/02/19 12:54 10/02/19 12:54 10/02/19 12:54 10/02/19 12:54 Assessment/Plan Active Problems (Last Reviewed 09/04/19 @ 08:49 by Corazon Lehman) Sacral decubitus ulcer, stage IV (Chronic) Decubitus ulcer of right buttock, stage 4 (Chronic) Decubitus ulcer of left buttock, stage 4 (Chronic) Chronic osteomyelitis involving pelvic region and thigh (Chronic) Paraplegia (Chronic) The patient appears to be tolerating hyperbaric oxygen therapy well, which will be continued as per the patient's medical plan. Treatment Course Number Number of HBO Treatments 40 Ordered Treatment Course Number 1 Treatment # 13 Chamber # 2 Chamber Type Monoplace Diabetes - Detail Diabetes Diabetes Type II Other - Detail Chronic Refractory Yes Osteomyelitis (specify site in comment) Treatment Plan KRISTEN (Atmospheric Absolute) 2 Number of Minutes 90 Number of Air Breaks 0
[2019-10-03 12:20] VITALS: BP 100/48; BP 110/53; PULSE 80; PULSE 84; RESP 16; TEMP 35.8; TEMP 36.9
[2019-10-03 12:25] LABS: Bedside Glucose 138 mg/dL (70-110)
[2019-10-04 10:02] VITALS: BP 92/45; PULSE 102; RESP 16; TEMP 36.6; BMI 21.8
--- NOTE | 2019-10-04 10:29 | PCM.WC.PN ---
(1) Chronic osteomyelitis involving pelvic region and thigh Status: Chronic Current Visit: Yes Code(s): M86.659 - Other chronic osteomyelitis, unspecified thigh (2) Decubitus ulcer of left buttock, stage 4 Status: Chronic Current Visit: Yes Code(s): L89.324 - Pressure ulcer of left buttock, stage 4 (3) Decubitus ulcer of right buttock, stage 4 Status: Chronic Current Visit: Yes Code(s): L89.314 - Pressure ulcer of right buttock, stage 4 (4) Paraplegia Status: Chronic Current Visit: Yes Code(s): G82.20 - Paraplegia, unspecified (5) Sacral decubitus ulcer, stage IV Status: Chronic Current Visit: Yes Code(s): L89.154 - Pressure ulcer of sacral region, stage 4 Type of Wound Date of Service: 10/04/19 Chief Complaint: Non healing, chronic decubitus pressure ulcers, stage IV, with osteomyelitis - thigh, buttock, sacrum. History of Wound: Mr. Joyce is a 33yo well known to the wound center but was last seen here over a month ago. Initial sacral ulcer was said to have started in November and Buttock ulcers were noted subsequently. He has had an extensive hospital stay over the last couple of months following a work related injury. Both during his hopsital and half-way stays, he had wound care ranging from surgical debridement, wound vac and collagen use. He was scheduled to be restarted on his wound Vac prior to his discharge from the [facility]. He reports significant drainage from the wounds. Also of note is a history of osteomyelitis for which he was on a 6 week IV antibiotic. His however states they were informed that he had developed chronic extensive pelvic area osteomyelitis. He feels well otherwise at this time and denies chills, fever,nausea, vomitting or change in bowel habit. 02/22/2019: Above, he was last seen here over a month ago. Had an extensive hospital stay [facility] due to complications from prior neck surgery. They state that his ulcers have been stable. Been doing the acetic acid soak for 10 minutes and then calcium alginate/collagen dressings. Is any concerns at this time. Progress of Wound: No new concerns. Stable/Improving ulcers. - Physical Exam Vital Signs Temp Pulse Resp BP 97.8 F 102 H 16 92/45 L 10/04/19 10:02 10/04/19 10:02 10/04/19 10:02 10/04/19 10:02 General: Alert, Oriented x3, Cooperative, No apparent distress HEENT: Atraumatic, Normocephalic Oral: Moist Mucosa Neck: Supple Lungs: Normal air movement Extremities: No cyanosis Skin: Ulcer/ Wound Wound Measurements and Assessment WC - Nurse 1 - General Ulcer Measurement Start: 09/12/19 14:10 Freq: Status: Active Protocol: Activity Type Activity Date Activity User E-Sign Co-Sign Detail Recorded Client Recorded Date Recorded By Document 10/04/19 10:02 [facility] [id number] 10/04/19 10:11 [facility] 10/04/19 10:02 Wound Center Nurse 1 [Ulcer Assessment] #7 Sacral -Combined with other wound No -Current Size (cm) - Length 8.1 -Current Size (cm) - Width 14.5 -Current Size (cm) - Depth 1.5 -Total Square Cm 117.45 -Photo Taken No -Epithelialization Small 1-33% -Tunneling No -Undermining/Tunneling Yes -Undermining/Tunneling Starts (O' 10 clock) -Undermining/Tunneling Ends (O'clock) 12 -Maximum Distance (cm) 4 -Undermining/Tunneling Starts #2 (O' 1 clock) -Undermining/Tunneling Ends #2 (O' 2 clock) -Maximum Distance #2 (cm) 3.4 -Circular Undermining No -Exudate Amt Medium -Exudate Type Serosanguineous -Wound Margin Thickened & Rolled Under -Granulation Amt Large (67-100%) -Granulation Quality Pale,Red -Slough/Fibrin Yes -Necrosis Amt Small (1-33%) -Necrotic Tissue Type Adherent Slough -Texture (Sheyla-wound Skin Appearance) Assessed, Scarring -Moisture (Sheyla-wound Skin Appearance Assessed ) -Color (Sheyla-wound Skin Appearance) Assessed -Temperature (Sheyla-wound Skin No Abnormality Appearance) (Pt Warm) -Tenderness on Palpation (Sheyla-wound No Skin Appearance) -Ulcer Cleansing soaqpy water -Foul Odor after Cleansing No #6 R Buttocks -Combined with other wound No -Current Size (cm) - Length 8.5 -Current Size (cm) - Width 5.5 -Current Size (cm) - Depth 1.9 -Total Square Cm 46.75 -Photo Taken No -Epithelialization Small 1-33% -Tunneling No -Undermining/Tunneling No -Circular Undermining No -Exudate Amt Medium -Exudate Type Serosanguineous -Wound Margin Thickened & Rolled Under -Granulation Amt Large (67-100%) -Granulation Quality Pale,Red -Slough/Fibrin Yes -Necrosis Amt Small (1-33%) -Necrotic Tissue Type Adherent Slough -Texture (Sheyla-wound Skin Appearance) Assessed, Scarring -Moisture (Sheyla-wound Skin Appearance Assessed ) -Color (Sheyla-wound Skin Appearance) Assessed -Temperature (Sheyla-wound Skin No Abnormality Appearance) (Pt Warm) -Tenderness on Palpation (Sheyla-wound No Skin Appearance) -Ulcer Cleansing soapy water -Foul Odor after Cleansing No #5 L Buttocks -Combined with other wound No -Current Size (cm) - Length 4.8 -Current Size (cm) - Width 5.4 -Current Size (cm) - Depth 2.7 -Total Square Cm 25.92 -Photo Taken No -Epithelialization Small 1-33% -Tunneling No -Undermining/Tunneling No -Circular Undermining No -Exudate Amt Medium -Exudate Type Serosanguineous -Wound Margin Thickened & Rolled Under -Granulation Amt Large (67-100%) -Granulation Quality Pale,Red -Slough/Fibrin Yes -Necrosis Amt Small (1-33%) -Necrotic Tissue Type Adherent Slough -Texture (Sheyla-wound Skin Appearance) Assessed, Scarring -Moisture (Sheyla-wound Skin Appearance Assessed ) -Color (Sheyla-wound Skin Appearance) Assessed -Temperature (Sheyla-wound Skin No Abnormality Appearance) (Pt Warm) -Tenderness on Palpation (Sheyla-wound No Skin Appearance) -Ulcer Cleansing soapy water -Foul Odor after Cleansing No Musculoskeletal: No Muscle Wasting Neurological: Cranial nerves II-XII grossly intact Psych/Mental Status: Normal Affect Debridement Note Post-Debridement Measurements/Treatment WC - Nurse 2 - General Ulcer CM Notes Start: 09/12/19 14:10 Freq: Status: Active Protocol: Activity Type Activity Date Activity User E-Sign Co-Sign Detail Recorded Client Recorded Date Recorded By Document 09/13/19 11:47 MW [id number] 09/13/19 11:51 MW Document 09/27/19 09:57 MW [id number] 09/27/19 10:03 MW 09/13/19 09/27/19 11:47 09:57 Wound Center Nurse 2 #7 Sacral -Time 11:48 09:57 -Correct Patient Yes Yes -Correct Side, Site, Position Yes Yes -Correct Procedure Yes Yes -Procedure Performed Yes Yes -Type of Procedure Debridement Debridement -Clinical Debridement Subcutaneous Subcutaneous -Post Debridement Size (cm) - Length 7.5 6.6 -Post Debridement Size (cm) - Width 14.0 14.0 -Post Debridement Size (cm) - Depth 1.5 1.5 -Total Square (cm) 105.00 92.40 -Wound/Ulcer Outcome Not Healed Not Healed -Ulcer Cleansing Rinsed/ Rinsed/ Irrigated with Irrigated with Saline Saline -Foul Odor after Cleansing No No -Bioengineered Tissue No No -Bleeding Controlled with Pressure Pressure -Offloading No No -Treatment Response Procedure Procedure Tolerated Well Tolerated Well #6 R Buttocks -Time 11:48 09:57 -Correct Patient Yes Yes -Correct Side, Site, Position Yes Yes -Correct Procedure Yes Yes -Procedure Performed Yes Yes -Type of Procedure Debridement Debridement -Clinical Debridement Subcutaneous Subcutaneous -Post Debridement Size (cm) - Length 9.0 8.5 -Post Debridement Size (cm) - Width 5.0 5.5 -Post Debridement Size (cm) - Depth 1.5 1.4 -Total Square (cm) 45.00 46.75 -Wound/Ulcer Outcome Not Healed Not Healed -Ulcer Cleansing Rinsed/ Rinsed/ Irrigated with Irrigated with Saline Saline -Foul Odor after Cleansing No No -Bioengineered Tissue No No -Bleeding Controlled with Pressure Pressure -Offloading No No -Treatment Response Procedure Procedure Tolerated Well Tolerated Well #5 L Buttocks -Time 11:48 09:57 -Correct Patient Yes Yes -Correct Side, Site, Position Yes Yes -Correct Procedure Yes Yes -Procedure Performed Yes Yes -Type of Procedure Debridement Debridement -Clinical Debridement Subcutaneous Subcutaneous -Post Debridement Size (cm) - Length 9.0 8.5 -Post Debridement Size (cm) - Width 6.0 6.5 -Post Debridement Size (cm) - Depth 2.3 2.3 -Total Square (cm) 54.00 55.25 -Wound/Ulcer Outcome Not Healed Not Healed -Ulcer Cleansing Rinsed/ Rinsed/ Irrigated with Irrigated with Saline Saline -Foul Odor after Cleansing No No -Bioengineered Tissue No No -Bleeding Controlled with Pressure Pressure -Offloading No No -Treatment Response Procedure Procedure Tolerated Well Tolerated Well Pain Scale: 0-10 Numeric Is Patient Pain Free? Yes Yes Wound debrided: Sacral Wound Grade/Stage: Stage IV Type of Debridement: Excisional debridement Anesthesia Used: 4% Lidocaine Solution Depth: Down to and including healthy tissue, in the subcutaneous layer Percentage of wound debrided: 100 Instrument Used: 7mm curette Tissue Removed: Slough and devitalized tissue Severity: Fat Layer Exposed Amount of bleeding with debridement: Mild Bleeding Controlled with: Pressure Patient tolerated procedure well - Additional Wound Wound debrided: Left Buttock Wound Grade/Stage: Stage IV Type of Debridement: Excisional debridement Anesthesia Used: 4% Lidocaine Solution Depth: Down to and including healthy tissue, in the subcutaneous layer Percentage of wound debrided: 100 Instrument Used: 7mm curette Tissue Removed: Slough and devitalized tissue Severity: Fat Layer Exposed Amount of bleeding with debridement: Mild Bleeding Controlled with: Pressure Patient tolerated procedure: Patient tolerated procedure well - Additional Wound Wound debrided: Right Buttock Wound Grade/Stage: Stage IV Type of Debridement: Excisional debridement Anesthesia Used: 4% Lidocaine Solution Depth: Down to and including healthy tissue, in the subcutaneous layer Percentage of wound debrided: 100 Instrument Used: 5mm curette Tissue Removed: Slough and devitalized tissue Severity: Fat Layer Exposed Amount of bleeding with debridement: Mild Bleeding Controlled with: Pressure Patient tolerated procedure: Patient tolerated procedure well Assessment/Plan Active Problems (Last Reviewed 09/04/19 @ 08:49 by Corazon Lehman) Sacral decubitus ulcer, stage IV (Chronic) Decubitus ulcer of right buttock, stage 4 (Chronic) Decubitus ulcer of left buttock, stage 4 (Chronic) Chronic osteomyelitis involving pelvic region and thigh (Chronic) Paraplegia (Chronic) Assessment: Same as above. Plan: Stable/improving ulcers. Debridement done as documented above, procedure well-tolerated. Continue 10 minute Acetic acid soak to all ulcers then calcium alginate/collagen dressing. Change daily to twice daily depending on drainage. Continue optimal dietary and protein intake. Offloading also recommended. His questions were answered and they were advised to call with any further questions or concerns. Follow up in 1 week. This note was generated with Dragon dictation software. It may contain incorrect words, spelling, and punctuation that were not noted in checking the note before signing. [id number]: [id number] Oxana subq tissue 20 sq cm/< Add On Codes: 68139 Oxana subq tissue add-on - Additional square centimeter debrided, please refer to clinical note.
[2019-10-04 11:50] LABS: Bedside Glucose 152 mg/dL (70-110)
--- NOTE | 2019-10-04 13:04 | PCM.HBO.PN ---
History of Present Illness Date of Service: 10/04/19 Presenting Chief Complaint: Non healing, chronic decubitus pressure ulcers, stage IV, with osteomyelitis - thigh, buttock, sacrum. GABBI CARBAJAL is a 34 year old currently undergoing hyperbaric oxygen therapy for stage IV pressure ulceration and chronic refractory osteomyelitis right posterior proximal thigh/buttock/sacral region. Progress:Today represents 14th hyperbaric oxygen treatment of 40 planned treatments. Tolerance of hyperbaric oxygen therapy: Hyperbaric oxygen treatment was provided as per the facility's protocol at 2.0 KRISTEN and 100% oxygen for 90 minutes. There were no air breaks. The patient tolerated hyperbaric oxygen well, without complications or complaints. Upon emergence of the hyperbaric chamber the patient's vital signs remained stable. Pre and post blood glucose levels as documented. Patient was discharged in good condition. Past Medical History Chronic Problems (Last Reviewed 09/04/19 @ 08:49 by Corazon Lehman) Sacral decubitus ulcer, stage IV (Chronic) Decubitus ulcer of right buttock, stage 4 (Chronic) Decubitus ulcer of left buttock, stage 4 (Chronic) Chronic osteomyelitis involving pelvic region and thigh (Chronic) Paraplegia (Chronic) Allergies/Adverse Reactions: Allergies lidocaine Allergy (Verified 09/03/19 13:05) Unknown Home Medications: Ambulatory Orders Medication Instructions Recorded Sitagliptin Phosphate [Januvia] 100 mg PO DAILY 10/11/17 Baclofen 5 mg PO BID 10/12/18 Diazepam [Valium] 5 mg PO BID 10/12/18 Fentanyl 200 ea TD 10/12/18 Ferrous Sulfate 325 mg PO 10/12/18 Insulin Glargine,Hum.rec.anlog 10 unit SQ 10/12/18 [Lantus Solostar] Insulin Lispro [Humalog KwikPen] unit SQ 10/12/18 Magnesium Oxide [Magnesium] 400 mg PO BID 10/12/18 Melatonin 3 mg PO 10/12/18 Metoclopramide HCl [Reglan] 5 mg PO TID 10/12/18 Oxycodone [Oxyfast] 30 mg PO Q4H PRN 10/12/18 Pregabalin [Lyrica] 50 mg PO BID 10/12/18 Sitagliptin Phosphate [Januvia] 100 mg PO 10/12/18 traZODone [Desyrel] 50 mg PO QHS 10/12/18 Meloxicam 7.5 mg PO BID PRN 05/17/19 Methenamine Hippurate [Hiprex] 1 gm PO BID 05/17/19 Maternal Family History: No pertinent history Lives: Spouse/ Significant Other Smoking Status: Former smoker Tobacco Use: Non-smoker Alcohol: None Drugs: None Physical Exam Vital Signs Temp Pulse Resp BP 97.8 F 102 H 16 92/45 L 10/04/19 10:02 10/04/19 10:02 10/04/19 10:02 10/04/19 10:02 General: Alert, Oriented x3, Cooperative, No apparent distress HEENT: Atraumatic, Normocephalic Lungs: Normal air movement Psych/Mental Status: Normal Affect Assessment/Plan Active Problems (Last Reviewed 09/04/19 @ 08:49 by Corazon Lehman) Sacral decubitus ulcer, stage IV (Chronic) Decubitus ulcer of right buttock, stage 4 (Chronic) Decubitus ulcer of left buttock, stage 4 (Chronic) Chronic osteomyelitis involving pelvic region and thigh (Chronic) Paraplegia (Chronic) The patient appears to be tolerating hyperbaric oxygen therapy well, which will be continued as per the patient's medical plan. Treatment Course Number Number of HBO Treatments 40 Ordered Treatment Course Number 1 Treatment # 14 Chamber # 670 Chamber Type Monoplace Diabetes - Detail Diabetes Diabetes Type II Other - Detail Chronic Refractory Yes Osteomyelitis (specify site in comment) Treatment Plan KRISTEN (Atmospheric Absolute) 2.0 Number of Minutes 90 Number of Air Breaks 0 HBO supervision.
[2019-10-04 13:20] VITALS: BP 113/66; BP 92/45; PULSE 102; PULSE 80; RESP 16; TEMP 36.6; TEMP 36.7
[2019-10-04 14:15] LABS: Bedside Glucose 153 mg/dL (70-110)
[2019-10-05 10:40] LABS: Bedside Glucose 233 mg/dL (70-110)
[2019-10-05 12:46] LABS: Bedside Glucose 131 mg/dL (70-110)
[2019-10-05 13:55] VITALS: BP 124/80; BP 131/79; PULSE 84; PULSE 85; RESP 18; TEMP 36.4; TEMP 36.6
--- NOTE | 2019-10-05 16:15 | PCM.HBO.PN ---
History of Present Illness Date of Service: 10/05/19 Presenting Chief Complaint: Non healing, chronic decubitus pressure ulcers, stage IV, with osteomyelitis - thigh, buttock, sacrum. GABBI CARBAJAL is a 34 year old currently undergoing hyperbaric oxygen therapy for stage IV pressure ulceration and chronic refractory osteomyelitis right posterior proximal thigh/buttock/sacral region. Progress:Today represents 15th hyperbaric oxygen treatment of 40 planned treatments. Tolerance of hyperbaric oxygen therapy: Hyperbaric oxygen treatment was provided as per the facility's protocol at 2.0 KRISTEN and 100% oxygen for 90 minutes. There were no air breaks. The patient tolerated hyperbaric oxygen well, without complications or complaints. Upon emergence of the hyperbaric chamber the patient's vital signs remained stable. Pre and post blood glucose levels as documented. Patient was discharged in good condition. Past Medical History Chronic Problems (Last Reviewed 09/04/19 @ 08:49 by Corazon Lehman) Sacral decubitus ulcer, stage IV (Chronic) Decubitus ulcer of right buttock, stage 4 (Chronic) Decubitus ulcer of left buttock, stage 4 (Chronic) Chronic osteomyelitis involving pelvic region and thigh (Chronic) Paraplegia (Chronic) Allergies/Adverse Reactions: Allergies lidocaine Allergy (Verified 09/03/19 13:05) Unknown Home Medications: Ambulatory Orders Medication Instructions Recorded Sitagliptin Phosphate [Januvia] 100 mg PO DAILY 10/11/17 Baclofen 5 mg PO BID 10/12/18 Diazepam [Valium] 5 mg PO BID 10/12/18 Fentanyl 200 ea TD 10/12/18 Ferrous Sulfate 325 mg PO 10/12/18 Insulin Glargine,Hum.rec.anlog 10 unit SQ 10/12/18 [Lantus Solostar] Insulin Lispro [Humalog KwikPen] unit SQ 10/12/18 Magnesium Oxide [Magnesium] 400 mg PO BID 10/12/18 Melatonin 3 mg PO 10/12/18 Metoclopramide HCl [Reglan] 5 mg PO TID 10/12/18 Oxycodone [Oxyfast] 30 mg PO Q4H PRN 10/12/18 Pregabalin [Lyrica] 50 mg PO BID 10/12/18 Sitagliptin Phosphate [Januvia] 100 mg PO 10/12/18 traZODone [Desyrel] 50 mg PO QHS 10/12/18 Meloxicam 7.5 mg PO BID PRN 05/17/19 Methenamine Hippurate [Hiprex] 1 gm PO BID 05/17/19 Maternal Family History: No pertinent history Lives: Spouse/ Significant Other Smoking Status: Former smoker Tobacco Use: Non-smoker Alcohol: None Drugs: None Physical Exam Vital Signs Temp Pulse Resp BP 97.8 F 84 18 131/79 H 10/05/19 13:55 10/05/19 13:55 10/05/19 13:55 10/05/19 13:55 General: Alert, Oriented x3, Cooperative, No apparent distress Psych/Mental Status: Normal Affect, Appropriate Assessment/Plan Active Problems (Last Reviewed 09/04/19 @ 08:49 by Corazon Lehman) Sacral decubitus ulcer, stage IV (Chronic) Decubitus ulcer of right buttock, stage 4 (Chronic) Decubitus ulcer of left buttock, stage 4 (Chronic) Chronic osteomyelitis involving pelvic region and thigh (Chronic) Paraplegia (Chronic) The patient appears to be tolerating hyperbaric oxygen therapy well, which will be continued as per the patient's medical plan. Treatment Course Number Number of HBO Treatments 40 Ordered Treatment Course Number 1 Treatment # 17 Chamber # [id number] Chamber Type Monoplace Diabetes - Detail Diabetes Diabetes Type II Other - Detail Chronic Refractory Yes Osteomyelitis (specify site in comment) Treatment Plan KRISTEN (Atmospheric Absolute) 2.0 Number of Minutes 90 Number of Air Breaks 0
[2019-10-08 11:01] LABS: Bedside Glucose 241 mg/dL (70-110)
[2019-10-08 12:08] VITALS: BP 101/66; BP 112/72; PULSE 77; PULSE 86; RESP 16; TEMP 36.7; TEMP 36.9
[2019-10-08 13:11] LABS: Bedside Glucose 104 mg/dL (70-110)
--- NOTE | 2019-10-08 13:32 | PCM.HBO.PN ---
History of Present Illness Date of Service: 10/08/19 Presenting Chief Complaint: Non healing, chronic decubitus pressure ulcers, stage IV, with osteomyelitis - thigh, buttock, sacrum. GABBI CARBAJAL is a 34 year old currently undergoing hyperbaric oxygen therapy for stage IV pressure ulceration and chronic refractory osteomyelitis right posterior proximal thigh/buttock/sacral region. Progress:Today represents 17th hyperbaric oxygen treatment of 40 planned treatments. Tolerance of hyperbaric oxygen therapy: Hyperbaric oxygen treatment was provided as per the facility's protocol at 2.0 KRISTEN and 100% oxygen for 90 minutes. There were no air breaks. The patient tolerated hyperbaric oxygen well, without complications or complaints. Upon emergence of the hyperbaric chamber the patient's vital signs remained stable. Pre and post blood glucose levels as documented. Patient was discharged in good condition. Past Medical History Chronic Problems (Last Reviewed 09/04/19 @ 08:49 by Corazon Lehman) Sacral decubitus ulcer, stage IV (Chronic) Decubitus ulcer of right buttock, stage 4 (Chronic) Decubitus ulcer of left buttock, stage 4 (Chronic) Chronic osteomyelitis involving pelvic region and thigh (Chronic) Paraplegia (Chronic) Allergies/Adverse Reactions: Allergies lidocaine Allergy (Verified 09/03/19 13:05) Unknown Home Medications: Ambulatory Orders Medication Instructions Recorded Sitagliptin Phosphate [Januvia] 100 mg PO DAILY 10/11/17 Baclofen 5 mg PO BID 10/12/18 Diazepam [Valium] 5 mg PO BID 10/12/18 Fentanyl 200 ea TD 10/12/18 Ferrous Sulfate 325 mg PO 10/12/18 Insulin Glargine,Hum.rec.anlog 10 unit SQ 10/12/18 [Lantus Solostar] Insulin Lispro [Humalog KwikPen] unit SQ 10/12/18 Magnesium Oxide [Magnesium] 400 mg PO BID 10/12/18 Melatonin 3 mg PO 10/12/18 Metoclopramide HCl [Reglan] 5 mg PO TID 10/12/18 Oxycodone [Oxyfast] 30 mg PO Q4H PRN 10/12/18 Pregabalin [Lyrica] 50 mg PO BID 10/12/18 Sitagliptin Phosphate [Januvia] 100 mg PO 10/12/18 traZODone [Desyrel] 50 mg PO QHS 10/12/18 Meloxicam 7.5 mg PO BID PRN 05/17/19 Methenamine Hippurate [Hiprex] 1 gm PO BID 05/17/19 Maternal Family History: No pertinent history Lives: Spouse/ Significant Other Smoking Status: Former smoker Tobacco Use: Non-smoker Alcohol: None Drugs: None Physical Exam Vital Signs Temp Pulse Resp BP 98.4 F 77 16 101/66 10/08/19 12:08 10/08/19 12:08 10/08/19 12:08 10/08/19 12:08 General: Alert, Oriented x3, Cooperative HEENT: Atraumatic, TM's Clear Lungs: Clear to auscultation, Normal air movement Cardiovascular: Regular rate, Regular Rhythm Psych/Mental Status: Normal Affect, Appropriate Assessment/Plan Active Problems (Last Reviewed 09/04/19 @ 08:49 by Corazon Lehman) Sacral decubitus ulcer, stage IV (Chronic) Decubitus ulcer of right buttock, stage 4 (Chronic) Decubitus ulcer of left buttock, stage 4 (Chronic) Chronic osteomyelitis involving pelvic region and thigh (Chronic) Paraplegia (Chronic) The patient appears to be tolerating hyperbaric oxygen therapy well, which will be continued as per the patient's medical plan. Treatment Course Number Number of HBO Treatments 40 Ordered Treatment Course Number 1 Treatment # 18 Chamber # [id number] Chamber Type Monoplace Diabetes - Detail Diabetes Diabetes Type II Diabetes Control Controlled Other - Detail Chronic Refractory Yes Osteomyelitis (specify site in comment) Treatment Plan KRISTEN (Atmospheric Absolute) 2 Number of Minutes 90 Number of Air Breaks [id number]
[2019-10-09 10:41] LABS: Bedside Glucose 250 mg/dL (70-110)
[2019-10-09 13:01] LABS: Bedside Glucose 142 mg/dL (70-110)
[2019-10-09 13:03] VITALS: BP 117/44; BP 95/53; PULSE 100; PULSE 54; RESP 16; TEMP 36.7
--- NOTE | 2019-10-09 14:21 | PCM.HBO.PN ---
History of Present Illness Date of Service: 10/09/19 Presenting Chief Complaint: Non healing, chronic decubitus pressure ulcers, stage IV, with osteomyelitis - thigh, buttock, sacrum. GABBI CARBAJAL is a 34 year old currently undergoing hyperbaric oxygen therapy for stage IV pressure ulceration and chronic refractory osteomyelitis right posterior proximal thigh/buttock/sacral region. Progress:Today represents the th hyperbaric oxygen treatment of 40 planned treatments. Tolerance of hyperbaric oxygen therapy: Hyperbaric oxygen treatment was provided as per the facility's protocol at 2.0 KRISTEN and 100% oxygen for 90 minutes. There were no air breaks. The patient tolerated hyperbaric oxygen well, without complications or complaints. Upon emergence of the hyperbaric chamber the patient's vital signs remained stable. Pre and post blood glucose levels as documented. Patient was discharged in good condition. Past Medical History Chronic Problems (Last Reviewed 09/04/19 @ 08:49 by Corazon Lehman) Sacral decubitus ulcer, stage IV (Chronic) Decubitus ulcer of right buttock, stage 4 (Chronic) Decubitus ulcer of left buttock, stage 4 (Chronic) Chronic osteomyelitis involving pelvic region and thigh (Chronic) Paraplegia (Chronic) Allergies/Adverse Reactions: Allergies lidocaine Allergy (Verified 09/03/19 13:05) Unknown Home Medications: Ambulatory Orders Medication Instructions Recorded Sitagliptin Phosphate [Januvia] 100 mg PO DAILY 10/11/17 Baclofen 5 mg PO BID 10/12/18 Diazepam [Valium] 5 mg PO BID 10/12/18 Fentanyl 200 ea TD 10/12/18 Ferrous Sulfate 325 mg PO 10/12/18 Insulin Glargine,Hum.rec.anlog 10 unit SQ 10/12/18 [Lantus Solostar] Insulin Lispro [Humalog KwikPen] unit SQ 10/12/18 Magnesium Oxide [Magnesium] 400 mg PO BID 10/12/18 Melatonin 3 mg PO 10/12/18 Metoclopramide HCl [Reglan] 5 mg PO TID 10/12/18 Oxycodone [Oxyfast] 30 mg PO Q4H PRN 10/12/18 Pregabalin [Lyrica] 50 mg PO BID 10/12/18 Sitagliptin Phosphate [Januvia] 100 mg PO 10/12/18 traZODone [Desyrel] 50 mg PO QHS 10/12/18 Meloxicam 7.5 mg PO BID PRN 05/17/19 Methenamine Hippurate [Hiprex] 1 gm PO BID 05/17/19 Maternal Family History: No pertinent history Lives: Spouse/ Significant Other Smoking Status: Former smoker Tobacco Use: Non-smoker Alcohol: None Drugs: None Physical Exam Vital Signs Temp Pulse Resp BP 98.1 F 54 L 16 95/53 L 10/09/19 13:03 10/09/19 13:03 10/09/19 13:03 10/09/19 13:03 General: Alert, Oriented x3, Cooperative, No apparent distress HEENT: Atraumatic, PERRLA, EOMI, Normocephalic Lungs: Normal air movement Psych/Mental Status: Normal Affect, Appropriate, Alert and oriented to time, place, person, mood and affect Assessment/Plan Active Problems (Last Reviewed 09/04/19 @ 08:49 by Corazon Lehman) Sacral decubitus ulcer, stage IV (Chronic) Decubitus ulcer of right buttock, stage 4 (Chronic) Decubitus ulcer of left buttock, stage 4 (Chronic) Chronic osteomyelitis involving pelvic region and thigh (Chronic) Paraplegia (Chronic) The patient appears to be tolerating hyperbaric oxygen therapy well, which will be continued as per the patient's medical plan. Treatment Course Number Number of HBO Treatments 40 Ordered Treatment Course Number 1 Treatment # 19 Chamber # 2 Chamber Type Monoplace Diabetes - Detail Diabetes Diabetes Type II Diabetes Control Controlled Other - Detail Chronic Refractory Yes Osteomyelitis (specify site in comment) Treatment Plan KRISTEN (Atmospheric Absolute) 2 Number of Minutes 90 Number of Air Breaks 0
[2019-10-11 09:54] VITALS: BP 117/52; PULSE 83; RESP 16; TEMP 36.3; BMI 21.8
[2019-10-11 11:51] VITALS: BP 117/52; BP 122/76; PULSE 83; PULSE 94; RESP 16; TEMP 36.3; TEMP 36.5
--- NOTE | 2019-10-11 12:22 | PN.PCM_ITS ---
(1) Chronic osteomyelitis involving pelvic region and thigh Status: Chronic Current Visit: Yes Code(s): M86.659 - Other chronic osteomyelitis, unspecified thigh (2) Decubitus ulcer of left buttock, stage 4 Status: Chronic Current Visit: Yes Code(s): L89.324 - Pressure ulcer of left buttock, stage 4 (3) Decubitus ulcer of right buttock, stage 4 Status: Chronic Current Visit: Yes Code(s): L89.314 - Pressure ulcer of right buttock, stage 4 (4) Paraplegia Status: Chronic Current Visit: Yes Code(s): G82.20 - Paraplegia, unspecified (5) Sacral decubitus ulcer, stage IV Status: Chronic Current Visit: Yes Code(s): L89.154 - Pressure ulcer of sacral region, stage 4 Type of Wound Date of Service: 10/11/19 Chief Complaint: Non healing, chronic decubitus pressure ulcers, stage IV, with osteomyelitis - thigh, buttock, sacrum. History of Wound: Mr. Joyce is a 33yo well known to the wound center but was last seen here over a month ago. Initial sacral ulcer was said to have started in November and Buttock ulcers were noted subsequently. He has had an extensive hospital stay over the last couple of months following a work related injury. Both during his hopsital and half-way stays, he had wound care ranging from surgical debridement, wound vac and collagen use. He was scheduled to be restarted on his wound Vac prior to his discharge from the [facility]. He reports significant drainage from the wounds. Also of note is a history of osteomyelitis for which he was on a 6 week IV antibiotic. His however states they were informed that he had developed chronic extensive pelvic area osteomyelitis. He feels well otherwise at this time and denies chills, fever,nausea, vomitting or change in bowel habit. 02/22/2019: Above, he was last seen here over a month ago. Had an extensive hospital stay [facility] due to complications from prior neck surgery. They state that his ulcers have been stable. Been doing the acetic acid soak for 10 minutes and then calcium alginate/collagen dressings. Is any concerns at this time. Progress of Wound: No new concerns. Stable/Improving ulcers. - Physical Exam Vital Signs Temp Pulse Resp BP 97.4 F L 83 16 117/52 L 10/11/19 09:54 10/11/19 09:54 10/11/19 09:54 10/11/19 09:54 General: Alert, Oriented x3, Cooperative, No apparent distress HEENT: Atraumatic, Normocephalic Oral: Moist Mucosa Neck: Supple Lungs: Normal air movement Extremities: No cyanosis Skin: Ulcer/ Wound Wound Measurements and Assessment WC - Nurse 1 - General Ulcer Measurement Start: 09/12/19 14:10 Freq: Status: Active Protocol: Activity Type Activity Date Activity User E-Sign Co-Sign Detail Recorded Client Recorded Date Recorded By Document 10/11/19 09:54 [facility] [id number] 10/11/19 10:02 [facility] 10/11/19 09:54 Wound Center Nurse 1 [Ulcer Assessment] #7 Sacral -Combined with other wound No -Current Size (cm) - Length 14 -Current Size (cm) - Width 7 -Current Size (cm) - Depth 0.2 -Total Square Cm 98 -Undermining/Tunneling Yes -Undermining/Tunneling Starts (O' 10 clock) -Undermining/Tunneling Ends (O'clock) 11 -Maximum Distance (cm) 4 -Undermining/Tunneling Starts #2 (O' 1 clock) -Undermining/Tunneling Ends #2 (O' 3 clock) -Maximum Distance #2 (cm) 3.6 -Exudate Amt Large -Exudate Type Yellow/Green -Wound Margin Thickened & Rolled Under -Granulation Amt Large (67-100%) -Granulation Quality Pale,Red -Slough/Fibrin No -Necrosis Amt None Present (0 %) -Texture (Sheyla-wound Skin Appearance) Assessed -Moisture (Sheyla-wound Skin Appearance Assessed ) -Color (Sheyla-wound Skin Appearance) Assessed -Temperature (Sheyla-wound Skin No Abnormality Appearance) (Pt Warm) -Tenderness on Palpation (Sheyla-wound No Skin Appearance) -Ulcer Cleansing SOAPY WATER -Foul Odor after Cleansing No #6 R Buttocks -Combined with other wound No -Current Size (cm) - Length 9.7 -Current Size (cm) - Width 6 -Current Size (cm) - Depth 0.2 -Total Square Cm 58.2 -Photo Taken No -Epithelialization Small 1-33% -Tunneling No -Undermining/Tunneling No -Circular Undermining No -Exudate Amt Medium -Exudate Type Yellow/Green -Wound Margin Thickened & Rolled Under -Granulation Amt Large (67-100%) -Granulation Quality Pale,Red -Slough/Fibrin No -Necrosis Amt None Present (0 %) -Texture (Sheyla-wound Skin Appearance) Assessed, Scarring -Moisture (Sheyla-wound Skin Appearance Assessed ) -Color (Sheyla-wound Skin Appearance) Assessed -Temperature (Sheyla-wound Skin No Abnormality Appearance) (Pt Warm) -Tenderness on Palpation (Sheyla-wound No Skin Appearance) -Ulcer Cleansing SOAPY WATER -Foul Odor after Cleansing No #5 L Buttocks -Combined with other wound No -Current Size (cm) - Length 9 -Current Size (cm) - Width 7 -Current Size (cm) - Depth 1.4 -Total Square Cm 63 -Epithelialization Small 1-33% -Tunneling No -Undermining/Tunneling No -Circular Undermining Yes -Exudate Amt Medium -Exudate Type Yellow/Green -Wound Margin Thickened & Rolled Under -Granulation Amt Large (67-100%) -Granulation Quality Pale,Red -Slough/Fibrin No -Necrosis Amt None Present (0 %) -Texture (Sheyla-wound Skin Appearance) Assessed, Scarring -Moisture (Sheyla-wound Skin Appearance Assessed ) -Color (Sheyla-wound Skin Appearance) Assessed -Temperature (Sheyla-wound Skin No Abnormality Appearance) (Pt Warm) -Tenderness on Palpation (Sheyla-wound No Skin Appearance) -Ulcer Cleansing SOAPY WATER -Foul Odor after Cleansing No WC - Nurse 2 - General Ulcer CM Notes Start: 09/12/19 14:10 Freq: Status: Active Protocol: Activity Type Activity Date Activity User E-Sign Co-Sign Detail Recorded Client Recorded Date Recorded By Document 10/11/19 10:16 MW [id number] 10/11/19 10:25 MW 10/11/19 10:16 Wound Center Nurse 2 [Procedure/Treatment] #7 Sacral -Time 10:18 -Correct Patient Yes -Correct Side, Site, Position Yes -Correct Procedure Yes -Procedure Performed Yes -Type of Procedure Debridement -Clinical Debridement Subcutaneous -Post Debridement Size (cm) - Length 6.5 -Post Debridement Size (cm) - Width 14.0 -Post Debridement Size (cm) - Depth 1.5 -Total Square (cm) 91.00 -Wound/Ulcer Outcome Not Healed -Ulcer Cleansing Rinsed/ Irrigated with Saline -Foul Odor after Cleansing No -Bioengineered Tissue No -Bleeding Controlled with Pressure -Offloading No -Treatment Response Procedure Tolerated Well #6 R Buttocks -Time 10:18 -Correct Patient Yes -Correct Side, Site, Position Yes -Correct Procedure Yes -Procedure Performed Yes -Type of Procedure Debridement -Clinical Debridement Subcutaneous -Post Debridement Size (cm) - Length 8.0 -Post Debridement Size (cm) - Width 5.0 -Post Debridement Size (cm) - Depth 1.5 -Total Square (cm) 40.00 -Wound/Ulcer Outcome Not Healed -Ulcer Cleansing Rinsed/ Irrigated with Saline -Foul Odor after Cleansing No -Bioengineered Tissue No -Bleeding Controlled with Pressure -Offloading No -Treatment Response Procedure Tolerated Well #5 L Buttocks -Time 10:18 -Correct Patient Yes -Correct Side, Site, Position Yes -Correct Procedure Yes -Procedure Performed Yes -Type of Procedure Debridement -Clinical Debridement Subcutaneous -Post Debridement Size (cm) - Length 8.5 -Post Debridement Size (cm) - Width 6.5 -Post Debridement Size (cm) - Depth 2.5 -Total Square (cm) 55.25 -Wound/Ulcer Outcome Not Healed -Ulcer Cleansing Rinsed/ Irrigated with Saline -Foul Odor after Cleansing No -Bioengineered Tissue No -Bleeding Controlled with Pressure -Offloading No -Treatment Response Procedure Tolerated Well [See Physician Procedure note for Specifics] Pain Scale: 0-10 Numeric [Pain] -Is Patient Pain Free? Yes Musculoskeletal: No Muscle Wasting Neurological: Cranial nerves II-XII grossly intact Psych/Mental Status: Normal Affect Debridement Note Post-Debridement Measurements/Treatment WC - Nurse 2 - General Ulcer CM Notes Start: 09/12/19 14:10 Freq: Status: Active Protocol: Activity Type Activity Date Activity User E-Sign Co-Sign Detail Recorded Client Recorded Date Recorded By Document 09/13/19 11:47 MW [id number] 09/13/19 11:51 MW Document 09/27/19 09:57 MW [id number] 09/27/19 10:03 MW Document 10/04/19 13:07 PL [id number] 10/04/19 13:08 PL Document 10/11/19 10:16 MW [id number] 10/11/19 10:25 MW 09/13/19 09/27/19 10/04/19 11:47 09:57 13:07 Wound Center Nurse 2 #7 Sacral -Time 11: 09:57 10:15 -Correct Patient Yes Yes Yes -Correct Side, Site, Position Yes Yes Yes -Correct Procedure Yes Yes Yes -Procedure Performed Yes Yes Yes -Type of Procedure Debridement Debridement Debridement -Clinical Debridement Subcutaneous Subcutaneous Subcutaneous -Post Debridement Size (cm) - Length 7.5 6.6 6.5 -Post Debridement Size (cm) - Width 14.0 14.0 14 -Post Debridement Size (cm) - Depth 1.5 1.5 1.6 -Total Square (cm) 105.00 92.40 91.0 -Wound/Ulcer Outcome Not Healed Not Healed Not Healed -Ulcer Cleansing Rinsed/ Rinsed/ Rinsed/ Irrigated with Irrigated with Irrigated with Saline Saline Saline -Foul Odor after Cleansing No No No -Bioengineered Tissue No No -Bleeding Controlled with Pressure Pressure Pressure -Offloading No No -Treatment Response Procedure Procedure Procedure Tolerated Well Tolerated Well Tolerated Well #6 R Buttocks -Time 09:57 10:15 -Correct Patient Yes Yes Yes -Correct Side, Site, Position Yes Yes Yes -Correct Procedure Yes Yes Yes -Procedure Performed Yes Yes Yes -Type of Procedure Debridement Debridement Debridement -Clinical Debridement Subcutaneous Subcutaneous Subcutaneous -Post Debridement Size (cm) - Length 9.0 8.5 7.5 -Post Debridement Size (cm) - Width 5.0 5.5 4.4 -Post Debridement Size (cm) - Depth 1.5 1.4 1.6 -Total Square (cm) 45.00 46.75 33.00 -Wound/Ulcer Outcome Not Healed Not Healed Not Healed -Ulcer Cleansing Rinsed/ Rinsed/ Rinsed/ Irrigated with Irrigated with Irrigated with Saline Saline Saline -Foul Odor after Cleansing No No No -Bioengineered Tissue No No -Bleeding Controlled with Pressure Pressure Pressure -Offloading No No -Treatment Response Procedure Procedure Procedure Tolerated Well Tolerated Well Tolerated Well #5 L Buttocks -Time 09:57 10:15 -Correct Patient Yes Yes Yes -Correct Side, Site, Position Yes Yes Yes -Correct Procedure Yes Yes Yes -Procedure Performed Yes Yes Yes -Type of Procedure Debridement Debridement Debridement -Clinical Debridement Subcutaneous Subcutaneous Subcutaneous -Post Debridement Size (cm) - Length 9.0 8.5 8 -Post Debridement Size (cm) - Width 6.0 6.5 6 -Post Debridement Size (cm) - Depth 2.3 2.3 2.5 -Total Square (cm) 54.00 55.25 48 -Wound/Ulcer Outcome Not Healed Not Healed Not Healed -Ulcer Cleansing Rinsed/ Rinsed/ Rinsed/ Irrigated with Irrigated with Irrigated with Saline Saline Saline -Foul Odor after Cleansing No No No -Bioengineered Tissue No No -Bleeding Controlled with Pressure Pressure Pressure -Offloading No No -Treatment Response Procedure Procedure Procedure Tolerated Well Tolerated Well Tolerated Well Pain Scale: 0-10 Numeric Is Patient Pain Free? Yes Yes Yes 10/11/19 10:16 Wound Center Nurse 2 #7 Sacral -Time 10:18 -Correct Patient Yes -Correct Side, Site, Position Yes -Correct Procedure Yes -Procedure Performed Yes -Type of Procedure Debridement -Clinical Debridement Subcutaneous -Post Debridement Size (cm) - Length 6.5 -Post Debridement Size (cm) - Width 14.0 -Post Debridement Size (cm) - Depth 1.5 -Total Square (cm) 91.00 -Wound/Ulcer Outcome Not Healed -Ulcer Cleansing Rinsed/ Irrigated with Saline -Foul Odor after Cleansing No -Bioengineered Tissue No -Bleeding Controlled with Pressure -Offloading No -Treatment Response Procedure Tolerated Well #6 R Buttocks -Time 10:18 -Correct Patient Yes -Correct Side, Site, Position Yes -Correct Procedure Yes -Procedure Performed Yes -Type of Procedure Debridement -Clinical Debridement Subcutaneous -Post Debridement Size (cm) - Length 8.0 -Post Debridement Size (cm) - Width 5.0 -Post Debridement Size (cm) - Depth 1.5 -Total Square (cm) 40.00 -Wound/Ulcer Outcome Not Healed -Ulcer Cleansing Rinsed/ Irrigated with Saline -Foul Odor after Cleansing No -Bioengineered Tissue No -Bleeding Controlled with Pressure -Offloading No -Treatment Response Procedure Tolerated Well #5 L Buttocks -Time 10:18 -Correct Patient Yes -Correct Side, Site, Position Yes -Correct Procedure Yes -Procedure Performed Yes -Type of Procedure Debridement -Clinical Debridement Subcutaneous -Post Debridement Size (cm) - Length 8.5 -Post Debridement Size (cm) - Width 6.5 -Post Debridement Size (cm) - Depth 2.5 -Total Square (cm) 55.25 -Wound/Ulcer Outcome Not Healed -Ulcer Cleansing Rinsed/ Irrigated with Saline -Foul Odor after Cleansing No -Bioengineered Tissue No -Bleeding Controlled with Pressure -Offloading No -Treatment Response Procedure Tolerated Well Pain Scale: 0-10 Numeric Is Patient Pain Free? Yes Wound debrided: Sacral Wound Grade/Stage: Stage IV Type of Debridement: Excisional debridement Anesthesia Used: 4% Lidocaine Solution Depth: Down to and including healthy tissue, in the subcutaneous layer Percentage of wound debrided: 100 Instrument Used: 7mm curette Tissue Removed: Slough and devitalized tissue Severity: Fat Layer Exposed Amount of bleeding with debridement: Mild Bleeding Controlled with: Pressure Patient tolerated procedure well - Additional Wound Wound debrided: Right Buttock Wound Grade/Stage: Stage IV Type of Debridement: Excisional debridement Anesthesia Used: 4% Lidocaine Solution Depth: Down to and including healthy tissue, in the subcutaneous layer Instrument Used: 7mm curette Tissue Removed: Slough and devitalized tissue Severity: Fat Layer Exposed Amount of bleeding with debridement: Mild - Additional Wound Wound debrided: Left Buttock Wound Grade/Stage: Stage IV Type of Debridement: Excisional debridement Anesthesia Used: 4% Lidocaine Solution Depth: Down to and including healthy tissue, in the subcutaneous layer Percentage of wound debrided: 100 Instrument Used: 7mm curette Tissue Removed: Slough and devitalized tissue Severity: Fat Layer Exposed Amount of bleeding with debridement: Mild Bleeding Controlled with: Pressure Patient tolerated procedure: Patient tolerated procedure well Assessment/Plan Active Problems (Last Reviewed 09/04/19 @ 08:49 by Corazon Lehman) Sacral decubitus ulcer, stage IV (Chronic) Decubitus ulcer of right buttock, stage 4 (Chronic) Decubitus ulcer of left buttock, stage 4 (Chronic) Chronic osteomyelitis involving pelvic region and thigh (Chronic) Paraplegia (Chronic) Assessment: Same as above. Plan: Stable/improving ulcers. Debridement done as documented above, procedure well-tolerated. Continue 10 minute Acetic acid soak to all ulcers then calcium alginate/collagen dressing. Change daily to twice daily depending on drainage. Continue optimal dietary and protein intake. Offloading also recommended. His questions were answered and they were advised to call with any further questions or concerns. Follow up in 1 week. This note was generated with [employer] software. It may contain incorrect words, spelling, and punctuation th at were not noted in checking the note before signing. [id number]: [id number] Oxana subq tissue 20 sq cm/< Add On Codes: [id number] Oxana subq tissue add-on - Additional square centimeters debrided, please refer to clinical note.
--- NOTE | 2019-10-11 12:43 | PCM.HBO.PN ---
History of Present Illness Date of Service: 10/11/19 Presenting Chief Complaint: Non healing, chronic decubitus pressure ulcers, stage IV, with osteomyelitis - thigh, buttock, sacrum. GABBI CARBAJAL is a 34 year old currently undergoing hyperbaric oxygen therapy for stage IV pressure ulceration and chronic refractory osteomyelitis right posterior proximal thigh/buttock/sacral region. Progress:Today represents 20th hyperbaric oxygen treatment of 40 planned treatments. Tolerance of hyperbaric oxygen therapy: Hyperbaric oxygen treatment was provided as per the facility's protocol at 2.0 KRISTEN and 100% oxygen for 90 minutes. There were no air breaks. The patient tolerated hyperbaric oxygen well, without complications or complaints. Upon emergence of the hyperbaric chamber the patient's vital signs remained stable. Pre and post blood glucose levels as documented. Patient was discharged in good condition. Past Medical History Chronic Problems (Last Reviewed 09/04/19 @ 08:49 by Corazon Lehman) Sacral decubitus ulcer, stage IV (Chronic) Decubitus ulcer of right buttock, stage 4 (Chronic) Decubitus ulcer of left buttock, stage 4 (Chronic) Chronic osteomyelitis involving pelvic region and thigh (Chronic) Paraplegia (Chronic) Allergies/Adverse Reactions: Allergies lidocaine Allergy (Verified 09/03/19 13:05) Unknown Home Medications: Ambulatory Orders Medication Instructions Recorded Sitagliptin Phosphate [Januvia] 100 mg PO DAILY 10/11/17 Baclofen 5 mg PO BID 10/12/18 Diazepam [Valium] 5 mg PO BID 10/12/18 Fentanyl 200 ea TD 10/12/18 Ferrous Sulfate 325 mg PO 10/12/18 Insulin Glargine,Hum.rec.anlog 10 unit SQ 10/12/18 [Lantus Solostar] Insulin Lispro [Humalog KwikPen] unit SQ 10/12/18 Magnesium Oxide [Magnesium] 400 mg PO BID 10/12/18 Melatonin 3 mg PO 10/12/18 Metoclopramide HCl [Reglan] 5 mg PO TID 10/12/18 Oxycodone [Oxyfast] 30 mg PO Q4H PRN 10/12/18 Pregabalin [Lyrica] 50 mg PO BID 10/12/18 Sitagliptin Phosphate [Januvia] 100 mg PO 10/12/18 traZODone [Desyrel] 50 mg PO QHS 10/12/18 Meloxicam 7.5 mg PO BID PRN 05/17/19 Methenamine Hippurate [Hiprex] 1 gm PO BID 05/17/19 Maternal Family History: No pertinent history Lives: Spouse/ Significant Other Smoking Status: Former smoker Tobacco Use: Non-smoker Alcohol: None Drugs: None Physical Exam Vital Signs Temp Pulse Resp BP 97.4 F L 83 16 117/52 L 10/11/19 09:54 10/11/19 09:54 10/11/19 09:54 10/11/19 09:54 General: Alert, Oriented x3, Cooperative, No apparent distress HEENT: Atraumatic, Normocephalic Lungs: Normal air movement Psych/Mental Status: Normal Affect Assessment/Plan Active Problems (Last Reviewed 09/04/19 @ 08:49 by Corazon Lehman) Sacral decubitus ulcer, stage IV (Chronic) Decubitus ulcer of right buttock, stage 4 (Chronic) Decubitus ulcer of left buttock, stage 4 (Chronic) Chronic osteomyelitis involving pelvic region and thigh (Chronic) Paraplegia (Chronic) The patient appears to be tolerating hyperbaric oxygen therapy well, which will be continued as per the patient's medical plan. Treatment Course Number Number of HBO Treatments 40 Ordered Treatment Course Number 1 Treatment # 20 Chamber # [id number] Chamber Type Monoplace Diabetes - Detail Diabetes Diabetes Type II Diabetes Control Controlled Other - Detail Chronic Refractory Yes Osteomyelitis (specify site in comment) Treatment Plan KRISTEN (Atmospheric Absolute) 2 Number of Minutes 90 Number of Air Breaks 0 HBO supervision
[2019-10-11 13:11] LABS: Bedside Glucose 137 mg/dL (70-110)
[2019-10-12 10:01] LABS: Bedside Glucose 242 mg/dL (70-110)
[2019-10-12 12:00] LABS: Bedside Glucose 135 mg/dL (70-110)
--- NOTE | 2019-10-12 13:42 | PCM.HBO.PN ---
History of Present Illness Date of Service: 10/12/19 Presenting Chief Complaint: Non healing, chronic decubitus pressure ulcers, stage IV, with osteomyelitis - thigh, buttock, sacrum. GABBI CARBAJAL is a 34 year old currently undergoing hyperbaric oxygen therapy for stage IV pressure ulceration and chronic refractory osteomyelitis right posterior proximal thigh/buttock/sacral region. Progress:Today represents 21st hyperbaric oxygen treatment of 40 planned treatments. Tolerance of hyperbaric oxygen therapy: Hyperbaric oxygen treatment was provided as per the facility's protocol at 2.0 KRISTEN and 100% oxygen for 90 minutes. There were no air breaks. The patient tolerated hyperbaric oxygen well, without complications or complaints. Upon emergence of the hyperbaric chamber the patient's vital signs remained stable. Pre and post blood glucose levels as documented. Patient was discharged in good condition. Past Medical History Chronic Problems (Last Reviewed 09/04/19 @ 08:49 by Corazon Lehman) Sacral decubitus ulcer, stage IV (Chronic) Decubitus ulcer of right buttock, stage 4 (Chronic) Decubitus ulcer of left buttock, stage 4 (Chronic) Chronic osteomyelitis involving pelvic region and thigh (Chronic) Paraplegia (Chronic) Allergies/Adverse Reactions: Allergies lidocaine Allergy (Verified 09/03/19 13:05) Unknown Home Medications: Ambulatory Orders Medication Instructions Recorded Sitagliptin Phosphate [Januvia] 100 mg PO DAILY 10/11/17 Baclofen 5 mg PO BID 10/12/18 Diazepam [Valium] 5 mg PO BID 10/12/18 Fentanyl 200 ea TD 10/12/18 Ferrous Sulfate 325 mg PO 10/12/18 Insulin Glargine,Hum.rec.anlog 10 unit SQ 10/12/18 [Lantus Solostar] Insulin Lispro [Humalog KwikPen] unit SQ 10/12/18 Magnesium Oxide [Magnesium] 400 mg PO BID 10/12/18 Melatonin 3 mg PO 10/12/18 Metoclopramide HCl [Reglan] 5 mg PO TID 10/12/18 Oxycodone [Oxyfast] 30 mg PO Q4H PRN 10/12/18 Pregabalin [Lyrica] 50 mg PO BID 10/12/18 Sitagliptin Phosphate [Januvia] 100 mg PO 10/12/18 traZODone [Desyrel] 50 mg PO QHS 10/12/18 Meloxicam 7.5 mg PO BID PRN 05/17/19 Methenamine Hippurate [Hiprex] 1 gm PO BID 05/17/19 Maternal Family History: No pertinent history Lives: Spouse/ Significant Other Smoking Status: Former smoker Tobacco Use: Non-smoker Alcohol: None Drugs: None Physical Exam Vital Signs Temp Pulse Resp BP 97.4 F L 83 16 117/52 L 10/11/19 11:51 10/11/19 11:51 10/11/19 11:51 10/11/19 11:51 General: Alert, Oriented x3, Cooperative, No apparent distress Psych/Mental Status: Normal Affect, Appropriate Assessment/Plan Active Problems (Last Reviewed 09/04/19 @ 08:49 by Corazon Lehman) Sacral decubitus ulcer, stage IV (Chronic) Decubitus ulcer of right buttock, stage 4 (Chronic) Decubitus ulcer of left buttock, stage 4 (Chronic) Chronic osteomyelitis involving pelvic region and thigh (Chronic) Paraplegia (Chronic) The patient appears to be tolerating hyperbaric oxygen therapy well, which will be continued as per the patient's medical plan. Treatment Course Number Number of HBO Treatments 40 Ordered Treatment Course Number 1 Treatment # 20 Chamber # [id number] Chamber Type Monoplace Diabetes - Detail Diabetes Diabetes Type II Diabetes Control Controlled Other - Detail Chronic Refractory Yes Osteomyelitis (specify site in comment) Treatment Plan KRISTEN (Atmospheric Absolute) 2 Number of Minutes 90 Number of Air Breaks 0
[2019-10-12 15:26] LABS: Bedside Glucose 121 mg/dL (70-110)
[2019-10-12 15:26] LABS: Bedside Glucose 144 mg/dL (70-110)
[2019-10-12 16:47] VITALS: BP 106/64; BP 115/67; PULSE 105; PULSE 94; RESP 18; TEMP 36.4; TEMP 36.6
== END 2019-10-12 23:59 ==
LOC: WC 10:15
PROVIDERS: Family Provider Family Medicine; Referring Provider Internal Medicine; Visit Provider Internal Medicine
DX: L89.324 Pressure ulcer of left buttock, stage 4 (principal); G82.20 Paraplegia, unspecified; L89.314 Pressure ulcer of right buttock, stage 4; L89.154 Pressure ulcer of sacral region, stage 4; M86.68 Other chronic osteomyelitis, other site; Z79.899 Other long term (current) drug therapy; Z87.891 Personal history of nicotine dependence; E11.9 Type 2 diabetes mellitus without complications; Z79.4 Long term (current) use of insulin
CPT/HCPCS: 11042; 11045; 82962; 99183; G0277

== ENCOUNTER 2019-11-12 10:00 | Outpatient (RCR) | payer OTHER, SELFPAY ==
[2019-10-11 09:54] VITALS: BMI 21.8
[2019-10-13 00:24] VITALS: BP 115/67; PULSE 94; RESP 18; TEMP 36.6
[2019-10-15 10:10] LABS: Bedside Glucose 187 mg/dL (70-110)
[2019-10-15 10:21] VITALS: BP 102/53; BP 92/61; PULSE 105; PULSE 96; RESP 16; RESP 18; TEMP 36.8; TEMP 37
--- NOTE | 2019-10-15 10:54 | HBO.PN.PCM_ITS ---
History of Present Illness Date of Service: 10/15/19 Presenting Chief Complaint: Non healing, chronic decubitus pressure ulcers, stage IV, with osteomyelitis - thigh, buttock, sacrum. GABBI CARBAJAL is a 34 year old currently undergoing hyperbaric oxygen therapy for for stage IV pressure ulceration and chronic refractory osteomyelitis right posterior proximal thigh/buttock/sacral region. Progress: Today represents 22nd hyperbaric oxygen treatment of 40 planned treatments. Tolerance of hyperbaric oxygen therapy: Hyperbaric oxygen treatment was provided as per the facility's protocol at 2.0 KRISTEN and 100% oxygen for 90 minutes. There were no air breaks. The patient tolerated hyperbaric oxygen wel l, without complications or complaints. Upon emergence of the hyperbaric chamber the patient's vital signs remained stable. Pre and post blood glucose levels as documented. Patient was discharged in good condition. Past Medical History Chronic Problems (Last Reviewed 09/04/19 @ 08:49 by Corazon Lehman) Sacral decubitus ulcer, stage IV (Chronic) Decubitus ulcer of right buttock, stage 4 (Chronic) Decubitus ulcer of left buttock, stage 4 (Chronic) Chronic osteomyelitis involving pelvic region and thigh (Chronic) Paraplegia (Chronic) Allergies/Adverse Reactions: Allergies lidocaine Allergy (Verified 09/03/19 13:05) Unknown Home Medications: Ambulatory Orders Medication Instructions Recorded Sitagliptin Phosphate [Januvia] 100 mg PO DAILY 10/11/17 Baclofen 5 mg PO BID 10/12/18 Diazepam [Valium] 5 mg PO BID 10/12/18 Fentanyl 200 ea TD 10/12/18 Ferrous Sulfate 325 mg PO 10/12/18 Insulin Glargine,Hum.rec.anlog 10 unit SQ 10/12/18 [Lantus Solostar] Insulin Lispro [Humalog KwikPen] unit SQ 10/12/18 Magnesium Oxide [Magnesium] 400 mg PO BID 10/12/18 Melatonin 3 mg PO 10/12/18 Metoclopramide HCl [Reglan] 5 mg PO TID 10/12/18 Oxycodone [Oxyfast] 30 mg PO Q4H PRN 10/12/18 Pregabalin [Lyrica] 50 mg PO BID 10/12/18 Sitagliptin Phosphate [Januvia] 100 mg PO 10/12/18 traZODone [Desyrel] 50 mg PO QHS 10/12/18 Meloxicam 7.5 mg PO BID PRN 05/17/19 Methenamine Hippurate [Hiprex] 1 gm PO BID 05/17/19 Maternal Family History: No pertinent history Smoking Status: Former smoker Tobacco Use: Non-smoker Physical Exam Vital Signs Temp Pulse Resp BP 98.2 F 105 H 18 92/61 10/15/19 10:21 10/15/19 10:21 10/15/19 10:21 10/15/19 10:21 General: Alert, Oriented x3, Cooperative HEENT: Atraumatic, TM's Clear Lungs: Clear to auscultation, Normal air movement Cardiovascular: Regular rate, Regular Rhythm Psych/Mental Status: Normal Affect, Appropriate Assessment/Plan ASSESSMENT Sacral decubitus ulcer, stage IV (Chronic) Decubitus ulcer of right buttock, stage 4 (Chronic) Decubitus ulcer of left buttock, stage 4 (Chronic) Chronic osteomyelitis involving pelvic region and thigh (Chronic) Paraplegia (Chronic) PLAN The patient appears to be tolerating hyperbaric oxygen therapy well, which will be continued as per the patient's medical plan. Treatment Course Number Number of HBO Treatments 40 Ordered Treatment Course Number 1 Treatment # 22 Chamber # [id number] Chamber Type Monoplace HBO Diagnosis/Indication Diagnosis/Indication(s) for Standard/Conservative Hyperbaric Therapy Diabetes - Detail Diabetes Diabetes Type II Diabetes Control Uncontrolled Other - Detail Chronic Refractory Yes: Pelvic Region and Thigh Osteomyelitis (specify site in comment) Treatment Plan KRISTEN (Atmospheric Absolute) 2 Number of Minutes 90 Number of Air Breaks 0 [id number] HBOT FINISH REPAIRER coverage
[2019-10-15 13:10] LABS: Bedside Glucose 168 mg/dL (70-110)
[2019-10-16 10:00] LABS: Bedside Glucose 209 mg/dL (70-110)
[2019-10-16 12:00] LABS: Bedside Glucose 172 mg/dL (70-110)
--- NOTE | 2019-10-16 13:02 | HBO.PN.PCM_ITS ---
History of Present Illness Date of Service: 10/16/19 Presenting Chief Complaint: Non healing, chronic decubitus pressure ulcers, stage IV, with osteomyelitis - thigh, buttock, sacrum. GABBI CARBAJAL is a 34 year old currently undergoing hyperbaric oxygen therapy for for stage IV pressure ulceration and chronic refractory osteomyelitis right posterior proximal thigh/buttock/sacral region. Progress: Today represents hyperbaric oxygen treatment of 40 planned treatments. Tolerance of hyperbaric oxygen therapy: Hyperbaric oxygen treatment was provided as per the facility's protocol at 2.0 KRISTEN and 100% oxygen for 90 minutes. There were no air breaks. The patient tolerated hyperbaric oxygen wel l, without complications or complaints. Upon emergence of the hyperbaric chamber the patient's vital signs remained stable. Pre and post blood glucose levels as documented. Patient was discharged in good condition. Past Medical History Chronic Problems (Last Reviewed 09/04/19 @ 08:49 by Corazon Lehman) Sacral decubitus ulcer, stage IV (Chronic) Decubitus ulcer of right buttock, stage 4 (Chronic) Decubitus ulcer of left buttock, stage 4 (Chronic) Chronic osteomyelitis involving pelvic region and thigh (Chronic) Paraplegia (Chronic) Allergies/Adverse Reactions: Allergies lidocaine Allergy (Verified 09/03/19 13:05) Unknown Home Medications: Ambulatory Orders Medication Instructions Recorded Sitagliptin Phosphate [Januvia] 100 mg PO DAILY 10/11/17 Baclofen 5 mg PO BID 10/12/18 Diazepam [Valium] 5 mg PO BID 10/12/18 Fentanyl 200 ea TD 10/12/18 Ferrous Sulfate 325 mg PO 10/12/18 Insulin Glargine,Hum.rec.anlog 10 unit SQ 10/12/18 [Lantus Solostar] Insulin Lispro [Humalog KwikPen] unit SQ 10/12/18 Magnesium Oxide [Magnesium] 400 mg PO BID 10/12/18 Melatonin 3 mg PO 10/12/18 Metoclopramide HCl [Reglan] 5 mg PO TID 10/12/18 Oxycodone [Oxyfast] 30 mg PO Q4H PRN 10/12/18 Pregabalin [Lyrica] 50 mg PO BID 10/12/18 Sitagliptin Phosphate [Januvia] 100 mg PO 10/12/18 traZODone [Desyrel] 50 mg PO QHS 10/12/18 Meloxicam 7.5 mg PO BID PRN 05/17/19 Methenamine Hippurate [Hiprex] 1 gm PO BID 05/17/19 Maternal Family History: No pertinent history Smoking Status: Former smoker Tobacco Use: Non-smoker Physical Exam Vital Signs Temp Pulse Resp BP 98.2 F 105 H 18 92/61 10/15/19 10:21 10/15/19 10:21 10/15/19 10:21 10/15/19 10:21 General: Alert, Oriented x3, Cooperative, No apparent distress, Well developed, Well nourished HEENT: Atraumatic, PERRLA, EOMI, Normocephalic Lungs: Normal air movement Psych/Mental Status: Normal Affect, Appropriate, Alert and oriented to time, place, person, mood and affect Assessment/Plan The patient appears to be tolerating hyperbaric oxygen therapy treatment well, which will be continued as per the patient's medical plan. Treatment Course Number Number of HBO Treatments 40 Ordered Treatment Course Number 1 Treatment # 22 Chamber # [id number] Chamber Type Monoplace HBO Diagnosis/Indication Diagnosis/Indication(s) for Standard/Conservative Hyperbaric Therapy Diabetes - Detail Diabetes Diabetes Type II Diabetes Control Uncontrolled Other - Detail Chronic Refractory Yes: Pelvic Region and Thigh Osteomyelitis (specify site in comment) Treatment Plan KRISTEN (Atmospheric Absolute) 2 Number of Minutes 90 Number of Air Breaks 0
[2019-10-16 13:06] VITALS: BP 133/84; BP 90/56; PULSE 112; PULSE 96; RESP 16; RESP 18; TEMP 36.5; TEMP 36.6
[2019-10-17 09:40] LABS: Bedside Glucose 167 mg/dL (70-110)
[2019-10-17 09:48] VITALS: BP 89/59; BP 94/61; PULSE 90; PULSE 91; RESP 16; TEMP 36.2; TEMP 37.2
--- NOTE | 2019-10-17 10:58 | HBO.PN.PCM_ITS ---
History of Present Illness Date of Service: 10/17/19 Presenting Chief Complaint: Non healing, chronic decubitus pressure ulcers, stage IV, with osteomyelitis - thigh, buttock, sacrum. GABBI CARBAJAL is a 34 year old currently undergoing hyperbaric oxygen therapy for for stage IV pressure ulceration and chronic refractory osteomyelitis right posterior proximal thigh/buttock/sacral region. Progress: Today represents 24 hyperbaric oxygen treatment of 40 planned treatments. Tolerance of hyperbaric oxygen therapy: Hyperbaric oxygen treatment was provided as per the facility's protocol at 2.0 KRISTEN and 100% oxygen for 90 minutes. There were no air breaks. The patient tolerated hyperbaric oxygen wel l, without complications or complaints. Upon emergence of the hyperbaric chamber the patient's vital signs remained stable. Pre and post blood glucose levels as documented. Patient was discharged in good condition. Past Medical History Chronic Problems (Last Reviewed 09/04/19 @ 08:49 by Corazon Lehman) Sacral decubitus ulcer, stage IV (Chronic) Decubitus ulcer of right buttock, stage 4 (Chronic) Decubitus ulcer of left buttock, stage 4 (Chronic) Chronic osteomyelitis involving pelvic region and thigh (Chronic) Paraplegia (Chronic) Allergies/Adverse Reactions: Allergies lidocaine Allergy (Verified 09/03/19 13:05) Unknown Home Medications: Ambulatory Orders Medication Instructions Recorded Sitagliptin Phosphate [Januvia] 100 mg PO DAILY 10/11/17 Baclofen 5 mg PO BID 10/12/18 Diazepam [Valium] 5 mg PO BID 10/12/18 Fentanyl 200 ea TD 10/12/18 Ferrous Sulfate 325 mg PO 10/12/18 Insulin Glargine,Hum.rec.anlog 10 unit SQ 10/12/18 [Lantus Solostar] Insulin Lispro [Humalog KwikPen] unit SQ 10/12/18 Magnesium Oxide [Magnesium] 400 mg PO BID 10/12/18 Melatonin 3 mg PO 10/12/18 Metoclopramide HCl [Reglan] 5 mg PO TID 10/12/18 Oxycodone [Oxyfast] 30 mg PO Q4H PRN 10/12/18 Pregabalin [Lyrica] 50 mg PO BID 10/12/18 Sitagliptin Phosphate [Januvia] 100 mg PO 10/12/18 traZODone [Desyrel] 50 mg PO QHS 10/12/18 Meloxicam 7.5 mg PO BID PRN 05/17/19 Methenamine Hippurate [Hiprex] 1 gm PO BID 05/17/19 Maternal Family History: No pertinent history Smoking Status: Former smoker Tobacco Use: Non-smoker Physical Exam Vital Signs Temp Pulse Resp BP 97.2 F L 90 16 89/59 L 10/17/19 09:48 10/17/19 09:48 10/17/19 09:48 10/17/19 09:48 Assessment/Plan The patient appears to be tolerating hyperbaric oxygen therapy treatment well, which will be continued as per the patient's medical plan. Treatment Course Number Number of HBO Treatments 40 Ordered Treatment Course Number 1 Treatment # 24 Chamber # [id number] Chamber Type Monoplace HBO Diagnosis/Indication Diagnosis/Indication(s) for Standard/Conservative Hyperbaric Therapy Diabetes - Detail Diabetes Diabetes Type II Diabetes Control Uncontrolled Other - Detail Chronic Refractory Yes: Pelvic Region and Thigh Osteomyelitis (specify site in comment) Treatment Plan KRISTEN (Atmospheric Absolute) 2 Number of Minutes 90 Number of Air Breaks 0
[2019-10-17 11:50] LABS: Bedside Glucose 134 mg/dL (70-110)
--- NOTE | 2019-10-22 11:41 | HBO.PN.PCM_ITS ---
History of Present Illness Date of Service: 10/22/19 Presenting Chief Complaint: Non healing, chronic decubitus pressure ulcers, stage IV, with osteomyelitis - thigh, buttock, sacrum. GABBI CARBAJAL is a 34 year old currently undergoing hyperbaric oxygen therapy for for stage IV pressure ulceration and chronic refractory osteomyelitis right posterior proximal thigh/buttock/sacral region. Progress: Today represents 25th hyperbaric oxygen treatment of 40 planned treatments. Tolerance of hyperbaric oxygen therapy: Hyperbaric oxygen treatment was provided as per the facility's protocol at 2.0 KRISTEN and 100% oxygen for 90 minutes. There were no air breaks. The patient tolerated hyperbaric oxygen wel l, without complications or complaints. Upon emergence of the hyperbaric chamber the patient's vital signs remained stable. Pre and post blood glucose levels as documented. Patient was discharged in good condition. Past Medical History Chronic Problems (Last Reviewed 09/04/19 @ 08:49 by Corazon Lehman) Sacral decubitus ulcer, stage IV (Chronic) Decubitus ulcer of right buttock, stage 4 (Chronic) Decubitus ulcer of left buttock, stage 4 (Chronic) Chronic osteomyelitis involving pelvic region and thigh (Chronic) Paraplegia (Chronic) Allergies/Adverse Reactions: Allergies lidocaine Allergy (Verified 09/03/19 13:05) Unknown Home Medications: Ambulatory Orders Medication Instructions Recorded Sitagliptin Phosphate [Januvia] 100 mg PO DAILY 10/11/17 Baclofen 5 mg PO BID 10/12/18 Diazepam [Valium] 5 mg PO BID 10/12/18 Fentanyl 200 ea TD 10/12/18 Ferrous Sulfate 325 mg PO 10/12/18 Insulin Glargine,Hum.rec.anlog 10 unit SQ 10/12/18 [Lantus Solostar] Insulin Lispro [Humalog KwikPen] unit SQ 10/12/18 Magnesium Oxide [Magnesium] 400 mg PO BID 10/12/18 Melatonin 3 mg PO 10/12/18 Metoclopramide HCl [Reglan] 5 mg PO TID 10/12/18 Oxycodone [Oxyfast] 30 mg PO Q4H PRN 10/12/18 Pregabalin [Lyrica] 50 mg PO BID 10/12/18 Sitagliptin Phosphate [Januvia] 100 mg PO 10/12/18 traZODone [Desyrel] 50 mg PO QHS 10/12/18 Meloxicam 7.5 mg PO BID PRN 05/17/19 Methenamine Hippurate [Hiprex] 1 gm PO BID 05/17/19 Maternal Family History: No pertinent history Smoking Status: Former smoker Tobacco Use: Non-smoker Physical Exam Vital Signs Temp Pulse Resp BP 97.2 F L 90 16 89/59 L 10/17/19 09:48 10/17/19 09:48 10/17/19 09:48 10/17/19 09:48 General: Alert, Oriented x3, Cooperative, No apparent distress HEENT: Atraumatic, TM's Clear Lungs: Clear to auscultation, Normal air movement Cardiovascular: Regular rate, Regular Rhythm Psych/Mental Status: Normal Affect, Appropriate, Alert and oriented to time, place, person, mood and affect Assessment/Plan Treatment Course Number Number of HBO Treatments 40 Ordered Treatment Course Number 1 Treatment # 25 Chamber # [id number] Chamber Type Monoplace HBO Diagnosis/Indication Diagnosis/Indication(s) for Standard/Conservative Hyperbaric Therapy Diabetes - Detail Diabetes Diabetes Type II Diabetes Control Uncontrolled Other - Detail Chronic Refractory Yes: Pelvic Region and Thigh Osteomyelitis (specify site in comment) Treatment Plan KRISTEN (Atmospheric Absolute) 2 Number of Minutes 90 Number of Air Breaks 0 Has tolerated therapy well, which will be continued as per the patient's medical.
[2019-10-22 12:07] VITALS: BP 136/78; BP 87/56; PULSE 104; PULSE 81; RESP 16; TEMP 35.6; TEMP 35.9
[2019-10-22 12:10] LABS: Bedside Glucose 180 mg/dL (70-110)
[2019-10-22 13:15] LABS: Bedside Glucose 143 mg/dL (70-110)
[2019-10-23 11:41] LABS: Bedside Glucose 312 mg/dL (70-110)
[2019-10-23 11:41] LABS: Bedside Glucose 317 mg/dL (70-110)
[2019-10-23 11:56] LABS: Bedside Glucose 333 mg/dL (70-110)
--- NOTE | 2019-10-23 12:09 | WC ---
Patient arrived for his tx today. First initial blood sugar registered at 317 at 1059. Patient's spouse had some of the pt's insulin with them, Spouse administered four units at 1103. Rechecked pt's blood sugar at 1126, which registered at 312. Discussed the situation with Dr. Copeland, Dr. Copeland ordered the pt's blood sugar to be retaken after waiting another 20 minutes. At 1147, pt's blood sugar registered at 333. Notified Dr. Copeland, to which he had ordered to cancel today's tx d/t elevated blood sugar. Notified pt today's tx was canceled, pt voiced understanding.
[2019-10-24 11:01] LABS: Bedside Glucose 265 mg/dL (70-110)
[2019-10-24 11:25] LABS: Bedside Glucose 255 mg/dL (70-110)
[2019-10-24 12:25] LABS: Bedside Glucose 225 mg/dL (70-110)
[2019-10-24 12:25] LABS: Bedside Glucose 251 mg/dL (70-110)
[2019-10-24 12:45] VITALS: BP 122/73; BP 144/56; PULSE 102; PULSE 85; RESP 16; TEMP 36.4; TEMP 37.3
[2019-10-24 13:11] LABS: Bedside Glucose 173 mg/dL (70-110)
--- NOTE | 2019-10-24 15:12 | HBO.PN.PCM_ITS ---
History of Present Illness Date of Service: 10/24/19 Presenting Chief Complaint: Non healing, chronic decubitus pressure ulcers, stage IV, with osteomyelitis - thigh, buttock, sacrum. GABBI CARBAJAL is a 34 year old currently undergoing hyperbaric oxygen therapy for for stage IV pressure ulceration and chronic refractory osteomyelitis right posterior proximal thigh/buttock/sacral region. Progress: Today represents 26th hyperbaric oxygen treatment of 40 planned treatments. Tolerance of hyperbaric oxygen therapy: He initially presented today and during his initial evaluation was found to have an elevated blood glucose level. He had just recently been treated with 2 units of Humalog, he was retested to watch for response to that medication. Additional blood glucose levels did show some decline. After the peak of the medication his blood glucose level was in a safe range for him to have hyperbaric oxygen therapy. Therapy was initiated per protocol. Upon reaching 13.5 PSI, the patient reported increased pressure to the right ear and the inability to relieve that pressure. Decompression was began. Symptoms improved upon emergence of the hyperbaric oxygen therapy chamber. Symptoms were not completely resolved. He has been referred to an research chief engineer for evaluation and possible treatment. Past Medical History Chronic Problems (Last Reviewed 09/04/19 @ 08:49 by Corazon Lehman) Sacral decubitus ulcer, stage IV (Chronic) Decubitus ulcer of right buttock, stage 4 (Chronic) Decubitus ulcer of left buttock, stage 4 (Chronic) Chronic osteomyelitis involving pelvic region and thigh (Chronic) Paraplegia (Chronic) Allergies/Adverse Reactions: Allergies lidocaine Allergy (Verified 09/03/19 13:05) Unknown Home Medications: Ambulatory Orders Medication Instructions Recorded Sitagliptin Phosphate [Januvia] 100 mg PO DAILY 10/11/17 Baclofen 5 mg PO BID 10/12/18 Diazepam [Valium] 5 mg PO BID 10/12/18 Fentanyl 200 ea TD 10/12/18 Ferrous Sulfate 325 mg PO 10/12/18 Insulin Glargine,Hum.rec.anlog 10 unit SQ 10/12/18 [Lantus Solostar] Insulin Lispro [Humalog KwikPen] unit SQ 10/12/18 Magnesium Oxide [Magnesium] 400 mg PO BID 10/12/18 Melatonin 3 mg PO 10/12/18 Metoclopramide HCl [Reglan] 5 mg PO TID 10/12/18 Oxycodone [Oxyfast] 30 mg PO Q4H PRN 10/12/18 Pregabalin [Lyrica] 50 mg PO BID 10/12/18 Sitagliptin Phosphate [Januvia] 100 mg PO 10/12/18 traZODone [Desyrel] 50 mg PO QHS 10/12/18 Meloxicam 7.5 mg PO BID PRN 05/17/19 Methenamine Hippurate [Hiprex] 1 gm PO BID 05/17/19 Maternal Family History: No pertinent history Smoking Status: Former smoker Tobacco Use: Non-smoker Physical Exam Vital Signs Temp Pulse Resp BP 97.5 F L 102 H 16 122/73 H 10/24/19 12:45 10/24/19 12:45 10/24/19 12:45 10/24/19 12:45 General: Alert, Oriented x3, Cooperative, No apparent distress HEENT: Atraumatic, TM's Clear Lungs: Clear to auscultation, Normal air movement Cardiovascular: Regular rate, Regular Rhythm Psych/Mental Status: Normal Affect, Appropriate, Alert and oriented to time, place, person, mood and affect Assessment/Plan Treatment Course Number Number of HBO Treatments 40 Ordered Treatment Course Number 1 Treatment # 26 Chamber # [id number] Chamber Type Monoplace HBO Diagnosis/Indication Diagnosis/Indication(s) for Standard/Conservative Hyperbaric Therapy Diabetes - Detail Diabetes Diabetes Type II Diabetes Control Uncontrolled Other - Detail Chronic Refractory Yes: Pelvic Region and Thigh Osteomyelitis (specify site in comment) Treatment Plan KRISTEN (Atmospheric Absolute) 2 Number of Minutes 90 Number of Air Breaks 0 Patient was not able to tolerate full depth of dive today. He has been referred to research chief engineer for evaluation.
[2019-10-25 10:45] LABS: Bedside Glucose 193 mg/dL (70-110)
--- NOTE | 2019-10-25 13:08 | PCM.HBO.PN ---
History of Present Illness Date of Service: 10/25/19 Presenting Chief Complaint: Non healing, chronic decubitus pressure ulcers, stage IV, with osteomyelitis - thigh, buttock, sacrum. GABBI CARBAJAL is a 34 year old currently undergoing hyperbaric oxygen therapy for for stage IV pressure ulceration and chronic refractory osteomyelitis right posterior proximal thigh/buttock/sacral region. Progress: Today represents 26th hyperbaric oxygen treatment of 40 planned treatments. Tolerance of hyperbaric oxygen therapy: Hyperbaric oxygen treatment was provided as per the facility's protocol at 2.0 KRISTEN and 100% oxygen for 90 minutes. There were no air breaks. The patient tolerated hyperbaric oxygen well, without complications or complaints. He underwent bilateral myringotomy tube placement on October 25, 2019. Upon emergence of the hyperbaric chamber the patient's vital signs remained stable. Pre and post blood glucose levels as documented. Patient was discharged in good condition. Past Medical History Chronic Problems (Last Reviewed 09/04/19 @ 08:49 by Corazon Lehman) Sacral decubitus ulcer, stage IV (Chronic) Decubitus ulcer of right buttock, stage 4 (Chronic) Decubitus ulcer of left buttock, stage 4 (Chronic) Chronic osteomyelitis involving pelvic region and thigh (Chronic) Paraplegia (Chronic) Allergies/Adverse Reactions: Allergies lidocaine Allergy (Verified 09/03/19 13:05) Unknown Home Medications: Ambulatory Orders Medication Instructions Recorded Sitagliptin Phosphate [Januvia] 100 mg PO DAILY 10/11/17 Baclofen 5 mg PO BID 10/12/18 Diazepam [Valium] 5 mg PO BID 10/12/18 Fentanyl 200 ea TD 10/12/18 Ferrous Sulfate 325 mg PO 10/12/18 Insulin Glargine,Hum.rec.anlog 10 unit SQ 10/12/18 [Lantus Solostar] Insulin Lispro [Humalog KwikPen] unit SQ 10/12/18 Magnesium Oxide [Magnesium] 400 mg PO BID 10/12/18 Melatonin 3 mg PO 10/12/18 Metoclopramide HCl [Reglan] 5 mg PO TID 10/12/18 Oxycodone [Oxyfast] 30 mg PO Q4H PRN 10/12/18 Pregabalin [Lyrica] 50 mg PO BID 10/12/18 Sitagliptin Phosphate [Januvia] 100 mg PO 10/12/18 traZODone [Desyrel] 50 mg PO QHS 10/12/18 Meloxicam 7.5 mg PO BID PRN 05/17/19 Methenamine Hippurate [Hiprex] 1 gm PO BID 05/17/19 Maternal Family History: No pertinent history Smoking Status: Former smoker Tobacco Use: Non-smoker Physical Exam Vital Signs Temp Pulse Resp BP 97.5 F L 102 H 16 122/73 H 10/24/19 12:45 10/24/19 12:45 10/24/19 12:45 10/24/19 12:45 General: Alert, Oriented x3, Cooperative, No apparent distress HEENT: Atraumatic, TM's Clear Lungs: Clear to auscultation, Normal air movement Cardiovascular: Regular Rhythm Psych/Mental Status: Normal Affect, Appropriate, Alert and oriented to time, place, person, mood and affect Assessment/Plan Treatment Course Number Number of HBO Treatments 40 Ordered Treatment Course Number 1 Treatment # 25 Chamber # [id number] Chamber Type Monoplace HBO Diagnosis/Indication Diagnosis/Indication(s) for Standard/Conservative Hyperbaric Therapy Diabetes - Detail Diabetes Diabetes Type II Diabetes Control Uncontrolled Other - Detail Chronic Refractory Yes: Pelvic Region and Thigh Osteomyelitis (specify site in comment) Treatment Plan KRISTEN (Atmospheric Absolute) 2 Number of Minutes 90 Number of Air Breaks 0
[2019-10-25 13:16] LABS: Bedside Glucose 142 mg/dL (70-110)
[2019-10-25 13:43] VITALS: BP 106/59; BP 119/71; PULSE 85; PULSE 88; RESP 16; TEMP 36.4; TEMP 37.1
[2019-10-26 11:16] VITALS: BP 133/71; BP 85/56; PULSE 100; PULSE 84; RESP 16; RESP 18; TEMP 36.4; TEMP 36.7
[2019-10-26 11:25] LABS: Bedside Glucose 169 mg/dL (70-110)
[2019-10-26 13:06] LABS: Bedside Glucose 145 mg/dL (70-110)
--- NOTE | 2019-10-26 15:44 | PCM.HBO.PN ---
History of Present Illness Date of Service: 10/26/19 Presenting Chief Complaint: Non healing, chronic decubitus pressure ulcers, stage IV, with osteomyelitis - thigh, buttock, sacrum. GABBI CARBAJAL is a 34 year old currently undergoing hyperbaric oxygen therapy for for stage IV pressure ulceration and chronic refractory osteomyelitis right posterior proximal thigh/buttock/sacral region. Progress: Today represents 27th hyperbaric oxygen treatment of 40 planned treatments. Tolerance of hyperbaric oxygen therapy: Hyperbaric oxygen treatment was provided as per the facility's protocol at 2.0 KRISTEN and 100% oxygen for 90 minutes. There were no air breaks. The patient tolerated hyperbaric oxygen well, without complications or complaints. He underwent bilateral myringotomy tube placement on October 25, 2019. Upon emergence of the hyperbaric chamber the patient's vital signs remained stable. Pre and post blood glucose levels as documented. Patient was discharged in good condition. Past Medical History Chronic Problems (Last Reviewed 09/04/19 @ 08:49 by Corazon Lehman) Sacral decubitus ulcer, stage IV (Chronic) Decubitus ulcer of right buttock, stage 4 (Chronic) Decubitus ulcer of left buttock, stage 4 (Chronic) Chronic osteomyelitis involving pelvic region and thigh (Chronic) Paraplegia (Chronic) Allergies/Adverse Reactions: Allergies lidocaine Allergy (Verified 09/03/19 13:05) Unknown Home Medications: Ambulatory Orders Medication Instructions Recorded Sitagliptin Phosphate [Januvia] 100 mg PO DAILY 10/11/17 Baclofen 5 mg PO BID 10/12/18 Diazepam [Valium] 5 mg PO BID 10/12/18 Fentanyl 200 ea TD 10/12/18 Ferrous Sulfate 325 mg PO 10/12/18 Insulin Glargine,Hum.rec.anlog 10 unit SQ 10/12/18 [Lantus Solostar] Insulin Lispro [Humalog KwikPen] unit SQ 10/12/18 Magnesium Oxide [Magnesium] 400 mg PO BID 10/12/18 Melatonin 3 mg PO 10/12/18 Metoclopramide HCl [Reglan] 5 mg PO TID 10/12/18 Oxycodone [Oxyfast] 30 mg PO Q4H PRN 10/12/18 Pregabalin [Lyrica] 50 mg PO BID 10/12/18 Sitagliptin Phosphate [Januvia] 100 mg PO 10/12/18 traZODone [Desyrel] 50 mg PO QHS 10/12/18 Meloxicam 7.5 mg PO BID PRN 05/17/19 Methenamine Hippurate [Hiprex] 1 gm PO BID 05/17/19 Maternal Family History: No pertinent history Smoking Status: Former smoker Tobacco Use: Non-smoker Physical Exam Vital Signs Temp Pulse Resp BP 97.5 F L 100 18 85/56 L 10/26/19 11:16 10/26/19 11:16 10/26/19 11:16 10/26/19 11:16 General: Alert, Oriented x3, Cooperative, No apparent distress Psych/Mental Status: Normal Affect, Appropriate Assessment/Plan Active Problems (Last Reviewed 09/04/19 @ 08:49 by Corazon Lehman) Sacral decubitus ulcer, stage IV (Chronic) Decubitus ulcer of right buttock, stage 4 (Chronic) Decubitus ulcer of left buttock, stage 4 (Chronic) Chronic osteomyelitis involving pelvic region and thigh (Chronic) Paraplegia (Chronic) The patient appears to be tolerating hyperbaric oxygen therapy treatment well, which will be continued as per the patient's medical plan. Treatment Course Number Number of HBO Treatments 40 Ordered Treatment Course Number 1 Treatment # 28 Chamber # [id number] Chamber Type Monoplace HBO Diagnosis/Indication Diagnosis/Indication(s) for Standard/Conservative Hyperbaric Therapy Diabetes - Detail Diabetes Diabetes Type II Diabetes Control Uncontrolled Other - Detail Chronic Refractory Yes: Pelvic Region and Thigh Osteomyelitis (specify site in comment) Treatment Plan KRISTEN (Atmospheric Absolute) 2 Number of Minutes 90 Number of Air Breaks 0
[2019-10-30 10:55] LABS: Bedside Glucose 187 mg/dL (70-110)
[2019-10-30 13:01] LABS: Bedside Glucose 132 mg/dL (70-110)
[2019-10-30 13:05] VITALS: BP 100/75; BP 114/55; PULSE 80; PULSE 91; RESP 16; TEMP 36.6
--- NOTE | 2019-10-30 13:28 | PCM.HBO.PN ---
History of Present Illness Date of Service: 10/30/19 Presenting Chief Complaint: Non healing, chronic decubitus pressure ulcers, stage IV, with osteomyelitis - thigh, buttock, sacrum. GABBI CARBAJAL is a 34 year old currently undergoing hyperbaric oxygen therapy for for stage IV pressure ulceration and chronic refractory osteomyelitis right posterior proximal thigh/buttock/sacral region. Progress: Today represents 29th hyperbaric oxygen treatment of 40 planned treatments. Tolerance of hyperbaric oxygen therapy: Hyperbaric oxygen treatment was provided as per the facility's protocol at 2.0 KRISTEN and 100% oxygen for 90 minutes. There were no air breaks. The patient tolerated hyperbaric oxygen well, without complications or complaints. He underwent bilateral myringotomy tube placement on October 25, 2019. Upon emergence of the hyperbaric chamber the patient's vital signs remained stable. Pre and post blood glucose levels as documented. Patient was discharged in good condition. Past Medical History Chronic Problems (Last Updated 10/26/19 @ 15:[address] Meena Coyne, DO) Sacral decubitus ulcer, stage IV (Chronic) Decubitus ulcer of right buttock, stage 4 (Chronic) Decubitus ulcer of left buttock, stage 4 (Chronic) Chronic osteomyelitis involving pelvic region and thigh (Chronic) Paraplegia (Chronic) Allergies/Adverse Reactions: Allergies lidocaine Allergy (Verified 09/03/19 13:05) Unknown Home Medications: Ambulatory Orders Medication Instructions Recorded Sitagliptin Phosphate [Januvia] 100 mg PO DAILY 10/11/17 Baclofen 5 mg PO BID 10/12/18 Diazepam [Valium] 5 mg PO BID 10/12/18 Fentanyl 200 ea TD 10/12/18 Ferrous Sulfate 325 mg PO 10/12/18 Insulin Glargine,Hum.rec.anlog 10 unit SQ 10/12/18 [Lantus Solostar] Insulin Lispro [Humalog KwikPen] unit SQ 10/12/18 Magnesium Oxide [Magnesium] 400 mg PO BID 10/12/18 Melatonin 3 mg PO 10/12/18 Metoclopramide HCl [Reglan] 5 mg PO TID 10/12/18 Oxycodone [Oxyfast] 30 mg PO Q4H PRN 10/12/18 Pregabalin [Lyrica] 50 mg PO BID 10/12/18 Sitagliptin Phosphate [Januvia] 100 mg PO 10/12/18 traZODone [Desyrel] 50 mg PO QHS 10/12/18 Meloxicam 7.5 mg PO BID PRN 05/17/19 Methenamine Hippurate [Hiprex] 1 gm PO BID 05/17/19 Maternal Family History: No pertinent history Smoking Status: Former smoker Tobacco Use: Non-smoker Physical Exam Vital Signs Temp Pulse Resp BP 97.8 F 91 16 100/75 10/30/19 13:05 10/30/19 13:05 10/30/19 13:05 10/30/19 13:05 General: Alert, Oriented x3, Cooperative, No apparent distress, Well developed, Well nourished HEENT: Atraumatic, PERRLA, EOMI, Normocephalic Lungs: Normal air movement Psych/Mental Status: Normal Affect, Appropriate, Alert and oriented to time, place, person, mood and affect Assessment/Plan The patient appears to be tolerating hyperbaric oxygen therapy well, which will be continued as per the patient's medical plan. Treatment Course Number Number of HBO Treatments 40 Ordered Treatment Course Number 1 Treatment # 29 Chamber # 2 Chamber Type Monoplace HBO Diagnosis/Indication Diagnosis/Indication(s) for Standard/Conservative Hyperbaric Therapy Diabetes - Detail Diabetes Diabetes Type II Diabetes Control Uncontrolled Other - Detail Chronic Refractory Yes: Pelvic Region and Thigh Osteomyelitis (specify site in comment) Treatment Plan KRISTEN (Atmospheric Absolute) 2 Number of Minutes 90 Number of Air Breaks 0
[2019-10-31 10:11] LABS: Bedside Glucose 164 mg/dL (70-110)
--- NOTE | 2019-10-31 11:33 | PCM.HBO.PN ---
History of Present Illness Date of Service: 10/31/19 Presenting Chief Complaint: Non healing, chronic decubitus pressure ulcers, stage IV, with osteomyelitis - thigh, buttock, sacrum. GABBI CARBAJAL is a 34 year old currently undergoing hyperbaric oxygen therapy for for stage IV pressure ulceration and chronic refractory osteomyelitis right posterior proximal thigh/buttock/sacral region. Progress: Today represents 30th hyperbaric oxygen treatment of 40 planned treatments. Tolerance of hyperbaric oxygen therapy: Hyperbaric oxygen treatment was provided as per the facility's protocol at 2.0 KRISTEN and 100% oxygen for 90 minutes. There were no air breaks. The patient tolerated hyperbaric oxygen well, without complications or complaints. He underwent bilateral myringotomy tube placement on October 25, 2019. Upon emergence of the hyperbaric chamber the patient's vital signs remained stable. Pre and post blood glucose levels as documented. Patient was discharged in good condition. Past Medical History Chronic Problems (Last Updated 10/26/19 @ 15:[address] Meena Coyne, DO) Sacral decubitus ulcer, stage IV (Chronic) Decubitus ulcer of right buttock, stage 4 (Chronic) Decubitus ulcer of left buttock, stage 4 (Chronic) Chronic osteomyelitis involving pelvic region and thigh (Chronic) Paraplegia (Chronic) Allergies/Adverse Reactions: Allergies lidocaine Allergy (Verified 09/03/19 13:05) Unknown Home Medications: Ambulatory Orders Medication Instructions Recorded Sitagliptin Phosphate [Januvia] 100 mg PO DAILY 10/11/17 Baclofen 5 mg PO BID 10/12/18 Diazepam [Valium] 5 mg PO BID 10/12/18 Fentanyl 200 ea TD 10/12/18 Ferrous Sulfate 325 mg PO 10/12/18 Insulin Glargine,Hum.rec.anlog 10 unit SQ 10/12/18 [Lantus Solostar] Insulin Lispro [Humalog KwikPen] unit SQ 10/12/18 Magnesium Oxide [Magnesium] 400 mg PO BID 10/12/18 Melatonin 3 mg PO 10/12/18 Metoclopramide HCl [Reglan] 5 mg PO TID 10/12/18 Oxycodone [Oxyfast] 30 mg PO Q4H PRN 10/12/18 Pregabalin [Lyrica] 50 mg PO BID 10/12/18 Sitagliptin Phosphate [Januvia] 100 mg PO 10/12/18 traZODone [Desyrel] 50 mg PO QHS 10/12/18 Meloxicam 7.5 mg PO BID PRN 05/17/19 Methenamine Hippurate [Hiprex] 1 gm PO BID 05/17/19 Maternal Family History: No pertinent history Smoking Status: Former smoker Tobacco Use: Non-smoker Physical Exam Vital Signs Temp Pulse Resp BP 97.8 F 91 16 100/75 10/30/19 13:05 10/30/19 13:05 10/30/19 13:05 10/30/19 13:05 Assessment/Plan The patient appears to be tolerating hyperbaric oxygen therapy well, which will be continued as per the patient's medical plan. Treatment Course Number Number of HBO Treatments 40 Ordered Treatment Course Number 1 Treatment # 29 Chamber # 2 Chamber Type Monoplace HBO Diagnosis/Indication Diagnosis/Indication(s) for Standard/Conservative Hyperbaric Therapy Diabetes - Detail Diabetes Diabetes Type II Diabetes Control Uncontrolled Other - Detail Chronic Refractory Yes: Pelvic Region and Thigh Osteomyelitis (specify site in comment) Treatment Plan KRISTEN (Atmospheric Absolute) 2 Number of Minutes 90 Number of Air Breaks 0
[2019-10-31 12:11] LABS: Bedside Glucose 155 mg/dL (70-110)
[2019-10-31 13:16] VITALS: BP 110/70; BP 89/55; PULSE 83; PULSE 92; RESP 18; TEMP 36.4
[2019-11-01 10:22] VITALS: BP 107/63; PULSE 88; RESP 16; TEMP 36.6; BMI 21.8
--- NOTE | 2019-11-01 11:26 | PCM.WC.PN ---
(1) Chronic osteomyelitis involving pelvic region and thigh Status: Chronic Current Visit: Yes Code(s): M86.659 - Other chronic osteomyelitis, unspecified thigh (2) Decubitus ulcer of left buttock, stage 4 Status: Chronic Current Visit: Yes Code(s): L89.324 - Pressure ulcer of left buttock, stage 4 (3) Decubitus ulcer of right buttock, stage 4 Status: Chronic Current Visit: Yes Code(s): L89.314 - Pressure ulcer of right buttock, stage 4 (4) Paraplegia Status: Chronic Current Visit: Yes Code(s): G82.20 - Paraplegia, unspecified (5) Sacral decubitus ulcer, stage IV Status: Chronic Current Visit: Yes Code(s): L89.154 - Pressure ulcer of sacral region, stage 4 Type of Wound Date of Service: 11/01/19 Chief Complaint: Non healing, chronic decubitus pressure ulcers, stage IV, with osteomyelitis - thigh, buttock, sacrum. History of Wound: Mr. Joyce is a 33yo well known to the wound center but was last seen here over a month ago. Initial sacral ulcer was said to have started in November and Buttock ulcers were noted subsequently. He has had an extensive hospital stay over the last couple of months following a work related injury. Both during his hopsital and halfway stays, he had wound care ranging from surgical debridement, wound vac and collagen use. He was scheduled to be restarted on his wound Vac prior to his discharge from the [place]. He reports significant drainage from the wounds. Also of note is a history of osteomyelitis for which he was on a 6 week IV antibiotic. His however states they were informed that he had developed chronic extensive pelvic area osteomyelitis. He feels well otherwise at this time and denies chills, fever,nausea, vomitting or change in bowel habit. 02/22/2019: Above, he was last seen here over a month ago. Had an extensive hospital stay [facility] due to complications from prior neck surgery. They state that his ulcers have been stable. Been doing the acetic acid soak for 10 minutes and then calcium alginate/collagen dressings. Is any concerns at this time. Progress of Wound: No new concerns. Stable/Improving ulcers. - Physical Exam Vital Signs Temp Pulse Resp BP 97.8 F 88 16 107/63 11/01/19 10:22 11/01/19 10:22 11/01/19 10:22 11/01/19 10:22 General: Alert, Oriented x3, Cooperative, No apparent distress HEENT: Atraumatic, Normocephalic Oral: Moist Mucosa Neck: Supple Lungs: Normal air movement Extremities: No cyanosis Skin: Ulcer/ Wound Wound Measurements and Assessment WC - Nurse 1 - General Ulcer Measurement Start: 10/15/19 10:21 Freq: Status: Active Protocol: Activity Type Activity Date Activity User E-Sign Co-Sign Detail Recorded Client Recorded Date Recorded By Document 11/01/19 10:22 OK [id number] 11/01/19 10:37 OK 11/01/19 10:22 Wound Center Nurse 1 [Ulcer Assessment] #7 Sacral -Combined with other wound No -Current Size (cm) - Length 6.8 -Current Size (cm) - Width 14.5 -Current Size (cm) - Depth 0.3 -Total Square Cm 98.60 -Photo Taken No -Epithelialization None Present -Tunneling No -Undermining/Tunneling Yes -Undermining/Tunneling Starts (O' 9 clock) -Undermining/Tunneling Ends (O'clock) 11 -Maximum Distance (cm) 6.1 -Undermining/Tunneling Starts #2 (O' 1 clock) -Undermining/Tunneling Ends #2 (O' 3 clock) -Maximum Distance #2 (cm) 3.2 -Circular Undermining Yes -Exudate Amt Medium -Exudate Type Serosanguineous -Wound Margin Distinct, Outline Attached -Granulation Amt Large (67-100%) -Granulation Quality Pale,Red -Slough/Fibrin No -Necrosis Amt None Present (0 %) -Texture (Sheyla-wound Skin Appearance) Assessed, Scarring -Moisture (Sheyla-wound Skin Appearance Assessed ) -Color (Sheyla-wound Skin Appearance) Assessed -Temperature (Sheyla-wound Skin No Abnormality Appearance) (Pt Warm) -Tenderness on Palpation (Sheyla-wound No Skin Appearance) -Ulcer Cleansing soapy water -Foul Odor after Cleansing No #6 R Buttocks -Combined with other wound No -Current Size (cm) - Length 9.5 -Current Size (cm) - Width 4.9 -Current Size (cm) - Depth 0.9 -Total Square Cm 46.55 -Photo Taken No -Epithelialization None Present -Tunneling No -Undermining/Tunneling No -Circular Undermining Yes -Exudate Amt Medium -Exudate Type Serosanguineous -Wound Margin Distinct, Outline Attached -Granulation Amt Large (67-100%) -Granulation Quality Pale,Red -Slough/Fibrin No -Necrosis Amt None Present (0 %) -Texture (Sheyla-wound Skin Appearance) Assessed, Scarring -Moisture (Sheyla-wound Skin Appearance Assessed ) -Color (Sheyla-wound Skin Appearance) Assessed -Temperature (Sheyla-wound Skin No Abnormality Appearance) (Pt Warm) -Tenderness on Palpation (Sheyla-wound No Skin Appearance) -Ulcer Cleansing soapy water -Foul Odor after Cleansing No #5 L Buttocks -Combined with other wound No -Current Size (cm) - Length 8.5 -Current Size (cm) - Width 6 -Current Size (cm) - Depth 4 -Total Square Cm 51.0 -Photo Taken No -Epithelialization Small 1-33% -Tunneling No -Undermining/Tunneling No -Circular Undermining No -Exudate Type Sanguineous -Wound Margin Distinct, Outline Attached -Granulation Amt Large (67-100%) -Granulation Quality Pale,Red -Slough/Fibrin No -Necrosis Amt None Present (0 %) -Texture (Sheyla-wound Skin Appearance) Assessed, Scarring -Moisture (Sheyla-wound Skin Appearance Assessed ) -Color (Sheyla-wound Skin Appearance) Assessed -Temperature (Sheyla-wound Skin No Abnormality Appearance) (Pt Warm) -Tenderness on Palpation (Sheyla-wound No Skin Appearance) -Ulcer Cleansing soapy water -Foul Odor after Cleansing No WC - Nurse 2 - General Ulcer CM Notes Start: 10/29/19 10:29 Freq: Status: Active Protocol: Activity Type Activity Date Activity User E-Sign Co-Sign Detail Recorded Client Recorded Date Recorded By Document 11/01/19 10:46 MW [id number] 11/01/19 10:52 MW 11/01/19 10:46 Wound Center Nurse 2 [Procedure/Treatment] #7 Sacral -Time 10:47 -Correct Patient Yes -Correct Side, Site, Position Yes -Correct Procedure Yes -Procedure Performed Yes -Type of Procedure Debridement -Clinical Debridement Subcutaneous -Tissue Removed Subcutaneous -Post Debridement (cm) - Length 6.5 -Post Debridement (cm) - Width 13.0 -Post Debridement (cm) - Depth 1.8 -Total Square (Post) (cm) 84.50 -Area of Debridement (cm) - Length 6.5 -Area of Debridement (cm) - Width 13.0 -Total Square (Area) (cm) 84.50 -Tunneling No -Undermining/Tunneling No -Circular Undermining No -Wound/Ulcer Outcome Not Healed -Ulcer Cleansing Rinsed/ Irrigated with Saline -Foul Odor after Cleansing No -Bioengineered Tissue No -Bleeding Controlled with Pressure -Offloading No -Treatment Response Procedure Tolerated Well -Debridement - Subq, 1st 20sq cm No #6 R Buttocks -Time 10:48 -Correct Patient Yes -Correct Side, Site, Position Yes -Correct Procedure Yes -Procedure Performed Yes -Type of Procedure Debridement -Clinical Debridement Subcutaneous -Tissue Removed Subcutaneous -Post Debridement (cm) - Length 8.5 -Post Debridement (cm) - Width 4.4 -Post Debridement (cm) - Depth 1.0 -Total Square (Post) (cm) 37.40 -Area of Debridement (cm) - Length 8.5 -Area of Debridement (cm) - Width 4.4 -Total Square (Area) (cm) 37.40 -Tunneling No -Undermining/Tunneling No -Circular Undermining No -Wound/Ulcer Outcome Not Healed -Ulcer Cleansing Rinsed/ Irrigated with Saline -Foul Odor after Cleansing No -Bioengineered Tissue No -Bleeding Controlled with Pressure -Offloading No -Debridement - Subq, 1st 20sq cm No #5 L Buttocks -Time 10:48 -Correct Patient Yes -Correct Side, Site, Position Yes -Correct Procedure Yes -Procedure Performed Yes -Type of Procedure Debridement -Clinical Debridement Subcutaneous -Tissue Removed Subcutaneous -Post Debridement (cm) - Length 8.0 -Post Debridement (cm) - Width 5.0 -Post Debridement (cm) - Depth 1.8 -Total Square (Post) (cm) 40.00 -Area of Debridement (cm) - Length 8.0 -Area of Debridement (cm) - Width 5.0 -Total Square (Area) (cm) 40.00 -Tunneling No -Undermining/Tunneling No -Circular Undermining No -Ulcer Cleansing Rinsed/ Irrigated with Saline -Foul Odor after Cleansing No -Bioengineered Tissue No -Bleeding Controlled with Pressure -Offloading No -Debridement - Subq, 1st 20sq cm Yes -Debridement, SubQ, ea addt'l 20sq cm 8 or part thereof [See Physician Procedure note for Specifics] Pain Scale: 0-10 Numeric [Pain] -Is Patient Pain Free? Yes - Nurse 3 - General Ulcer D/C NN Start: 10/29/19 23:27 Freq: Status: Active Protocol: Activity Type Activity Date Activity User E-Sign Co-Sign Detail Recorded Client Recorded Date Recorded By Document 10/30/19 13:05 JF [id number] 10/30/19 13:08 JF Document 11/01/19 11:02 RB [id number] 11/01/19 11:07 RB 10/30/19 11/01/19 13:05 11:02 Wound Care Nurse 3 [Wound Dressing] #7 Sacral -Ulcer Cleansing acetic acid 0. 25% then rinse w saline to all ulcer -Other Dressing collagen then calcium alginate mepilex #6 R Buttocks -Ulcer Cleansing acetic ACID then rinse saline -Other Dressing collagen , clacium alginate then abd #5 L Buttocks -Ulcer Cleansing acetic acid the rinse saline -Other Dressing collagen then calcium alginate , abd [Post Procedure Tolerated] -Treatment Response Procedure Tolerated Well Pain Scale: 0-10 Numeric [Pain] -Is Patient Pain Free? Yes Yes Teaching: Wound Center [Wound Center Education] (Items with an * have Printed Materials Available- Please identify what is given to patient under the Teaching materials given to patient and caregiver Section. Offload: Mattress, Cushion, Reposition -Person Taught Patient,Primary Caregiver -Teaching Method Discussion -Response to teaching Verbalize understanding - Visit Discharge [Visit Discharge Information] -Discharge Condition Stable Stable -Ambulatory Status Wheelchair Stretcher -Transportation Private Auto Private Auto -Accompanied by -Medication Reconcilliation completed Yes No & provided to patient/care provider -Clinical Summary of Care Provided Yes Yes -Notes: pt to HBO after appointment Musculoskeletal: No Muscle Wasting Neurological: Cranial nerves II-XII grossly intact Psych/Mental Status: Normal Affect Debridement Note Post-Debridement Measurements/Treatment - Nurse 2 - General Ulcer CM Notes Start: 10/29/19 10:29 Freq: Status: Active Protocol: Activity Type Activity Date Activity User E-Sign Co-Sign Detail Recorded Client Recorded Date Recorded By Document 11/01/19 10:46 MW [id number] 11/01/19 10:52 MW 11/01/19 10:46 Wound Center Nurse 2 #7 Sacral -Time 10:47 -Correct Patient Yes -Correct Side, Site, Position Yes -Correct Procedure Yes -Procedure Performed Yes -Type of Procedure Debridement -Clinical Debridement Subcutaneous -Tissue Removed Subcutaneous -Post Debridement (cm) - Length 6.5 -Post Debridement (cm) - Width 13.0 -Post Debridement (cm) - Depth 1.8 -Total Square (Post) (cm) 84.50 -Area of Debridement (cm) - Length 6.5 -Area of Debridement (cm) - Width 13.0 -Total Square (Area) (cm) 84.50 -Tunneling No -Undermining/Tunneling No -Circular Undermining No -Wound/Ulcer Outcome Not Healed -Ulcer Cleansing Rinsed/ Irrigated with Saline -Foul Odor after Cleansing No -Bioengineered Tissue No -Bleeding Controlled with Pressure -Offloading No -Treatment Response Procedure Tolerated Well -Debridement - Subq, 1st 20sq cm No #6 R Buttocks -Time 10:48 -Correct Patient Yes -Correct Side, Site, Position Yes -Correct Procedure Yes -Procedure Performed Yes -Type of Procedure Debridement -Clinical Debridement Subcutaneous -Tissue Removed Subcutaneous -Post Debridement (cm) - Length 8.5 -Post Debridement (cm) - Width 4.4 -Post Debridement (cm) - Depth 1.0 -Total Square (Post) (cm) 37.40 -Area of Debridement (cm) - Length 8.5 -Area of Debridement (cm) - Width 4.4 -Total Square (Area) (cm) 37.40 -Tunneling No -Undermining/Tunneling No -Circular Undermining No -Wound/Ulcer Outcome Not Healed -Ulcer Cleansing Rinsed/ Irrigated with Saline -Foul Odor after Cleansing No -Bioengineered Tissue No -Bleeding Controlled with Pressure -Offloading No -Debridement - Subq, 1st 20sq cm No #5 L Buttocks -Time 10:48 -Correct Patient Yes -Correct Side, Site, Position Yes -Correct Procedure Yes -Procedure Performed Yes -Type of Procedure Debridement -Clinical Debridement Subcutaneous -Tissue Removed Subcutaneous -Post Debridement (cm) - Length 8.0 -Post Debridement (cm) - Width 5.0 -Post Debridement (cm) - Depth 1.8 -Total Square (Post) (cm) 40.00 -Area of Debridement (cm) - Length 8.0 -Area of Debridement (cm) - Width 5.0 -Total Square (Area) (cm) 40.00 -Tunneling No -Undermining/Tunneling No -Circular Undermining No -Ulcer Cleansing Rinsed/ Irrigated with Saline -Foul Odor after Cleansing No -Bioengineered Tissue No -Bleeding Controlled with Pressure -Offloading No -Debridement - Subq, 1st 20sq cm Yes -Debridement, SubQ, ea addt'l 20sq cm 8 or part thereof Pain Scale: 0-10 Numeric Is Patient Pain Free? Yes - Nurse 3 - General Ulcer D/C NN Start: 10/29/19 23:27 Freq: Status: Active Protocol: Activity Type Activity Date Activity User E-Sign Co-Sign Detail Recorded Client Recorded Date Recorded By Document 10/30/19 13:05 [id number] 10/30/19 13:08 Document 11/01/19 11:02 RB [id number] 11/01/19 11:07 RB 10/30/19 11/01/19 13:05 11:02 Wound Care Nurse 3 #7 Sacral -Ulcer Cleansing acetic acid 0. 25% then rinse w saline to all ulcer -Other Dressing collagen then calcium alginate mepilex #6 R Buttocks -Ulcer Cleansing acetic ACID then rinse saline -Other Dressing collagen , clacium alginate then abd #5 L Buttocks -Ulcer Cleansing acetic acid the rinse saline -Other Dressing collagen then calcium alginate , abd Treatment Response Procedure Tolerated Well Pain Scale: 0-10 Numeric Is Patient Pain Free? Yes Yes Teaching: Wound Center Offload: Mattress, Cushion, Reposition -Person Taught Patient,Primary Caregiver -Teaching Method Discussion -Response to teaching Verbalize understanding WC - Visit Discharge Discharge Condition Stable Stable Ambulatory Status Wheelchair Stretcher Transportation Private Auto Private Auto Accompanied by Medication Reconcilliation completed & Yes No provided to patient/care provider Clinical Summary of Care Provided Yes Yes Notes: pt to HBO after appointment Wound debrided: Sacral Ulcer Wound Grade/Stage: Stage IV Type of Debridement: Excisional debridement Anesthesia Used: 4% Lidocaine Solution Depth: Down to and including healthy tissue, in the subcutaneous layer Percentage of wound debrided: 100 Instrument Used: 5mm curette Tissue Removed: Slough and devitalized tissue Severity: Fat Layer Exposed Amount of bleeding with debridement: Mild Bleeding Controlled with: Pressure Patient tolerated procedure well - Additional Wound Wound debrided: Right Buttock Wound Grade/Stage: Stage IV Type of Debridement: Excisional debridement Anesthesia Used: 4% Lidocaine Solution Depth: Down to and including healthy tissue, in the subcutaneous layer Percentage of wound debrided: 100 Instrument Used: 5mm curette Tissue Removed: Slough and devitalized tissue Severity: Fat Layer Exposed Amount of bleeding with debridement: Mild Bleeding Controlled with: Pressure Patient tolerated procedure: Patient tolerated procedure well - Additional Wound Wound debrided: Left Buttock Wound Grade/Stage: Stage IV Type of Debridement: Excisional debridement Anesthesia Used: 4% Lidocaine Solution Depth: Down to and including healthy tissue, in the subcutaneous layer Percentage of wound debrided: 100 Instrument Used: 5mm curette Tissue Removed: Slough and devitalized tissue Severity: Fat Layer Exposed Amount of bleeding with debridement: Mild Bleeding Controlled with: Pressure Patient tolerated procedure: Patient tolerated procedure well Assessment/Plan Active Problems (Last Updated 10/26/19 @ 15:[address] Meena Coyne, DO) Sacral decubitus ulcer, stage IV (Chronic) Decubitus ulcer of right buttock, stage 4 (Chronic) Decubitus ulcer of left buttock, stage 4 (Chronic) Chronic osteomyelitis involving pelvic region and thigh (Chronic) Paraplegia (Chronic) Assessment: Same as above. Plan: Stable/improving ulcers. Debridement done as documented above, procedure well-tolerated. Continue 10 minute Acetic acid soak to all ulcers then calcium alginate/collagen dressing. Change daily to twice daily depending on drainage. Continue optimal dietary and protein intake. Offloading also recommended. His questions were answered and they were advised to call with any further questions or concerns. Follow up in 1 week. This note was generated with [employer] software. It may contain incorrect words, spelling, and punctuation that were not noted in checking the note before signing. [id number]: [id number] Oxana subq tissue 20 sq cm/< Add On Codes: 15969 Oxana subq tissue add-on - Additional Sq Cm debrided. Please refer to clinical note.
[2019-11-01 11:41] LABS: Bedside Glucose 131 mg/dL (70-110)
[2019-11-01 11:59] VITALS: BP 107/63; BP 109/84; PULSE 80; PULSE 88; RESP 16; RESP 18; TEMP 36.3; TEMP 36.6
--- NOTE | 2019-11-01 12:30 | PCM.CONHBO ---
(1) Chronic osteomyelitis involving pelvic region and thigh Status: Chronic Current Visit: Yes Code(s): M86.659 - Other chronic osteomyelitis, unspecified thigh (2) Decubitus ulcer of left buttock, stage 4 Status: Chronic Current Visit: Yes Code(s): L89.324 - Pressure ulcer of left buttock, stage 4 (3) Decubitus ulcer of right buttock, stage 4 Status: Chronic Current Visit: Yes Code(s): L89.314 - Pressure ulcer of right buttock, stage 4 (4) Paraplegia Status: Chronic Current Visit: Yes Code(s): G82.20 - Paraplegia, unspecified (5) Sacral decubitus ulcer, stage IV Status: Chronic Current Visit: Yes Code(s): L89.154 - Pressure ulcer of sacral region, stage 4 History of Present Illness Date of Service: 11/01/19 Presenting Chief Complaint: Non healing, chronic decubitus pressure ulcers, stage IV, with osteomyelitis - thigh, buttock, sacrum. The patient is a 34 year old M who [facility] ongoing hyperbaric oxygen therapy for treatment of sacral and bilateral buttock decubitus ulcers. Has had about 30 treatments so far and has tolerated them really well. Ulcers are improving. Past Medical History Chronic Problems (Last Updated 10/26/19 @ 15:[address] Meena Coyne DO) Sacral decubitus ulcer, stage IV (Chronic) Decubitus ulcer of right buttock, stage 4 (Chronic) Decubitus ulcer of left buttock, stage 4 (Chronic) Chronic osteomyelitis involving pelvic region and thigh (Chronic) Paraplegia (Chronic) Allergies/Adverse Reactions: Allergies lidocaine Allergy (Verified 09/03/19 13:05) Unknown Home Medications: Ambulatory Orders Medication Instructions Recorded Sitagliptin Phosphate [Januvia] 100 mg PO DAILY 10/11/17 Baclofen 5 mg PO BID 10/12/18 Diazepam [Valium] 5 mg PO BID 10/12/18 Fentanyl 200 ea TD 10/12/18 Ferrous Sulfate 325 mg PO 10/12/18 Insulin Glargine,Hum.rec.anlog 10 unit SQ 10/12/18 [Lantus Solostar] Insulin Lispro [Humalog KwikPen] unit SQ 10/12/18 Magnesium Oxide [Magnesium] 400 mg PO BID 10/12/18 Melatonin 3 mg PO 10/12/18 Metoclopramide HCl [Reglan] 5 mg PO TID 10/12/18 Oxycodone [Oxyfast] 30 mg PO Q4H PRN 10/12/18 Pregabalin [Lyrica] 50 mg PO BID 10/12/18 Sitagliptin Phosphate [Januvia] 100 mg PO 10/12/18 traZODone [Desyrel] 50 mg PO QHS 10/12/18 Meloxicam 7.5 mg PO BID PRN 05/17/19 Methenamine Hippurate [Hiprex] 1 gm PO BID 05/17/19 Maternal Family History: No pertinent history Smoking Status: Former smoker Tobacco Use: Non-smoker Review of Systems Constitutional: Denies: Anorexia, Chills, Fever, Night Sweats Eyes: Denies: Blurred vision, Pain, Redness HEENT: Denies: Difficulty Hearing, Difficulty Swallowing Cardiovascular: Denies: Chest Pain, Claudication, Orthopnea, Palpitations Respiratory: Denies: Hemoptysis, Pleuritic Pain Gastrointestinal: Denies: Abdominal Pain, Hematemesis, Vomiting Skin: Denies: Dryness, Jaundice - Physical Exam Vital Signs Temp Pulse Resp BP 97.8 F 88 16 107/63 11/01/19 10:22 11/01/19 10:22 11/01/19 10:22 11/01/19 10:22 General: Alert, Oriented x3, Cooperative, No apparent distress HEENT: Atraumatic, Normocephalic Oral: Moist Mucosa Neck: Supple Lungs: Normal air movement Abdomen: Soft, Non Tender Extremities: No cyanosis Skin: Ulcer/ Wound Wound Measurements and Assessment - Nurse 1 - General Ulcer Measurement Start: 10/15/19 10:21 Freq: Status: Active Protocol: Activity Type Activity Date Activity User E-Sign Co-Sign Detail Recorded Client Recorded Date Recorded By Document 11/01/19 10:22 MD [id number] 11/01/19 10:37 MD 11/01/19 10:22 Wound Center Nurse 1 [Ulcer Assessment] #7 Sacral -Combined with other wound No -Current Size (cm) - Length 6.8 -Current Size (cm) - Width 14.5 -Current Size (cm) - Depth 0.3 -Total Square Cm 98.60 -Photo Taken No -Epithelialization None Present -Tunneling No -Undermining/Tunneling Yes -Undermining/Tunneling Starts (O' 9 clock) -Undermining/Tunneling Ends (O'clock) 11 -Maximum Distance (cm) 6.1 -Undermining/Tunneling Starts #2 (O' 1 clock) -Undermining/Tunneling Ends #2 (O' 3 clock) -Maximum Distance #2 (cm) 3.2 -Circular Undermining Yes -Exudate Amt Medium -Exudate Type Serosanguineous -Wound Margin Distinct, Outline Attached -Granulation Amt Large (67-100%) -Granulation Quality Pale,Red -Slough/Fibrin No -Necrosis Amt None Present (0 %) -Texture (Sheyla-wound Skin Appearance) Assessed, Scarring -Moisture (Sheyla-wound Skin Appearance Assessed ) -Color (Sheyla-wound Skin Appearance) Assessed -Temperature (Sheyla-wound Skin No Abnormality Appearance) (Pt Warm) -Tenderness on Palpation (Sheyla-wound No Skin Appearance) -Ulcer Cleansing soapy water -Foul Odor after Cleansing No #6 R Buttocks -Combined with other wound No -Current Size (cm) - Length 9.5 -Current Size (cm) - Width 4.9 -Current Size (cm) - Depth 0.9 -Total Square Cm 46.55 -Photo Taken No -Epithelialization None Present -Tunneling No -Undermining/Tunneling No -Circular Undermining Yes -Exudate Amt Medium -Exudate Type Serosanguineous -Wound Margin Distinct, Outline Attached -Granulation Amt Large (67-100%) -Granulation Quality Pale,Red -Slough/Fibrin No -Necrosis Amt None Present (0 %) -Texture (Sheyla-wound Skin Appearance) Assessed, Scarring -Moisture (Sheyla-wound Skin Appearance Assessed ) -Color (Sheyla-wound Skin Appearance) Assessed -Temperature (Sheyla-wound Skin No Abnormality Appearance) (Pt Warm) -Tenderness on Palpation (Sheyla-wound No Skin Appearance) -Ulcer Cleansing soapy water -Foul Odor after Cleansing No #5 L Buttocks -Combined with other wound No -Current Size (cm) - Length 8.5 -Current Size (cm) - Width 6 -Current Size (cm) - Depth 4 -Total Square Cm 51.0 -Photo Taken No -Epithelialization Small 1-33% -Tunneling No -Undermining/Tunneling No -Circular Undermining No -Exudate Type Sanguineous -Wound Margin Distinct, Outline Attached -Granulation Amt Large (67-100%) -Granulation Quality Pale,Red -Slough/Fibrin No -Necrosis Amt None Present (0 %) -Texture (Sheyla-wound Skin Appearance) Assessed, Scarring -Moisture (Sheyla-wound Skin Appearance Assessed ) -Color (Sheyla-wound Skin Appearance) Assessed -Temperature (Sheyla-wound Skin No Abnormality Appearance) (Pt Warm) -Tenderness on Palpation (Sheyla-wound No Skin Appearance) -Ulcer Cleansing soapy water -Foul Odor after Cleansing No WC - Nurse 2 - General Ulcer CM Notes Start: 10/29/19 10:29 Freq: Status: Active Protocol: Activity Type Activity Date Activity User E-Sign Co-Sign Detail Recorded Client Recorded Date Recorded By Document 11/01/19 10:46 MW [id number] 11/01/19 10:52 MW 11/01/19 10:46 Wound Center Nurse 2 [Procedure/Treatment] #7 Sacral -Time 10:47 -Correct Patient Yes -Correct Side, Site, Position Yes -Correct Procedure Yes -Procedure Performed Yes -Type of Procedure Debridement -Clinical Debridement Subcutaneous -Tissue Removed Subcutaneous -Post Debridement (cm) - Length 6.5 -Post Debridement (cm) - Width 13.0 -Post Debridement (cm) - Depth 1.8 -Total Square (Post) (cm) 84.50 -Area of Debridement (cm) - Length 6.5 -Area of Debridement (cm) - Width 13.0 -Total Square (Area) (cm) 84.50 -Tunneling No -Undermining/Tunneling No -Circular Undermining No -Wound/Ulcer Outcome Not Healed -Ulcer Cleansing Rinsed/ Irrigated with Saline -Foul Odor after Cleansing No -Bioengineered Tissue No -Bleeding Controlled with Pressure -Offloading No -Treatment Response Procedure Tolerated Well -Debridement - Subq, 1st 20sq cm No #6 R Buttocks -Time 10:48 -Correct Patient Yes -Correct Side, Site, Position Yes -Correct Procedure Yes -Procedure Performed Yes -Type of Procedure Debridement -Clinical Debridement Subcutaneous -Tissue Removed Subcutaneous -Post Debridement (cm) - Length 8.5 -Post Debridement (cm) - Width 4.4 -Post Debridement (cm) - Depth 1.0 -Total Square (Post) (cm) 37.40 -Area of Debridement (cm) - Length 8.5 -Area of Debridement (cm) - Width 4.4 -Total Square (Area) (cm) 37.40 -Tunneling No -Undermining/Tunneling No -Circular Undermining No -Wound/Ulcer Outcome Not Healed -Ulcer Cleansing Rinsed/ Irrigated with Saline -Foul Odor after Cleansing No -Bioengineered Tissue No -Bleeding Controlled with Pressure -Offloading No -Debridement - Subq, 1st 20sq cm No #5 L Buttocks -Time 10:48 -Correct Patient Yes -Correct Side, Site, Position Yes -Correct Procedure Yes -Procedure Performed Yes -Type of Procedure Debridement -Clinical Debridement Subcutaneous -Tissue Removed Subcutaneous -Post Debridement (cm) - Length 8.0 -Post Debridement (cm) - Width 5.0 -Post Debridement (cm) - Depth 1.8 -Total Square (Post) (cm) 40.00 -Area of Debridement (cm) - Length 8.0 -Area of Debridement (cm) - Width 5.0 -Total Square (Area) (cm) 40.00 -Tunneling No -Undermining/Tunneling No -Circular Undermining No -Ulcer Cleansing Rinsed/ Irrigated with Saline -Foul Odor after Cleansing No -Bioengineered Tissue No -Bleeding Controlled with Pressure -Offloading No -Debridement - Subq, 1st 20sq cm Yes -Debridement, SubQ, ea addt'l 20sq cm 8 or part thereof [See Physician Procedure note for Specifics] Pain Scale: 0-10 Numeric [Pain] -Is Patient Pain Free? Yes WC - Nurse 3 - General Ulcer D/C NN Start: 10/29/19 23:27 Freq: Status: Active Protocol: Activity Type Activity Date Activity User E-Sign Co-Sign Detail Recorded Client Recorded Date Recorded By Document 10/30/19 13:05 [id number] 10/30/19 13:08 JF Document 11/01/19 11:02 RB [id number] 11/01/19 11:07 RB 10/30/19 11/01/19 13:05 11:02 Wound Care Nurse 3 [Wound Dressing] #7 Sacral -Ulcer Cleansing acetic acid 0. 25% then rinse w saline to all ulcer -Other Dressing collagen then calcium alginate mepilex #6 R Buttocks -Ulcer Cleansing acetic ACID then rinse saline -Other Dressing collagen , clacium alginate then abd #5 L Buttocks -Ulcer Cleansing acetic acid the rinse saline -Other Dressing collagen then calcium alginate , abd [Post Procedure Tolerated] -Treatment Response Procedure Tolerated Well Pain Scale: 0-10 Numeric [Pain] -Is Patient Pain Free? Yes Yes Teaching: Wound Center [Wound Center Education] (Items with an * have Printed Materials Available- Please identify what is given to patient under the Teaching materials given to patient and caregiver Section. Offload: Mattress, Cushion, Reposition -Person Taught Patient,Primary Caregiver -Teaching Method Discussion -Response to teaching Verbalize understanding WC - Visit Discharge [Visit Discharge Information] -Discharge Condition Stable Stable -Ambulatory Status Wheelchair Stretcher -Transportation Private Auto Private Auto -Accompanied by -Medication Reconcilliation completed Yes No & provided to patient/care provider -Clinical Summary of Care Provided Yes Yes -Notes: pt to HBO after appointment Musculoskeletal: No Muscle Wasting Neurological: Cranial nerves II-XII grossly intact Psych/Mental Status: Normal Affect Assessment/Plan Active Problems (Last Updated 10/26/19 @ 15:[address] Menea Coyne, DO) Sacral decubitus ulcer, stage IV (Chronic) Decubitus ulcer of right buttock, stage 4 (Chronic) Decubitus ulcer of left buttock, stage 4 (Chronic) Chronic osteomyelitis involving pelvic region and thigh (Chronic) Paraplegia (Chronic) GABBI YORK RAVEN is an appropriate candidate for hyperbaric oxygen therapy. Hyperbaric Oxygen Therapy would be an essential adjunct in the resolution and treatment of this patient's presenting problem. This patient has sufficient physiologic and psychological stamina to undergo the rigors of hyperbaric oxygen therapy. As such, I recommend the following: Continued Hyperbaric Oxygen Treatments at 2.0 KRISTEN in 100% Oxygen for 90 minutes per treatment. I have discussed the possible benefits of hyperbaric oxygen therapy with this patient. I have also presented and described the risks, including: air gas embolism, pneumothorax, central nervous system and pulmonary oxygen toxicity, flash pulmonary edema, hypoglycemia, reversible visual refractive changes, ear and sinus matthew-trauma, and confinement anxiety. The patient has verbalized understanding of these risks, and is still wanting to undergo hyperbaric oxygen therapy. The patient understands the significant time and transportation commitment involved in daily treatments of up to two hours duration and has stated that they are willing to commit to this therapy. HBO Supervision.
[2019-11-01 13:46] LABS: Bedside Glucose 138 mg/dL (70-110)
[2019-11-05 09:56] LABS: Bedside Glucose 203 mg/dL (70-110)
[2019-11-05 10:27] VITALS: BP 91/53; BP 96/63; PULSE 79; PULSE 86; RESP 16; TEMP 35.8; TEMP 36.3
--- NOTE | 2019-11-05 10:35 | PCM.HBO.PN ---
History of Present Illness Date of Service: 11/05/19 Presenting Chief Complaint: Non healing, chronic decubitus pressure ulcers, stage IV, with osteomyelitis - thigh, buttock, sacrum. GABBI CARBAJAL is a 34 year old currently undergoing hyperbaric oxygen therapy for for stage IV pressure ulceration and chronic refractory osteomyelitis right posterior proximal thigh/buttock/sacral region. Progress: Today represents 32nd hyperbaric oxygen treatment of 40 planned treatments. Tolerance of hyperbaric oxygen therapy: Hyperbaric oxygen treatment was provided as per the facility's protocol at 2.0 KRISTEN and 100% oxygen for 90 minutes. There were no air breaks. The patient tolerated hyperbaric oxygen well, without complications or complaints. He underwent bilateral myringotomy tube placement on October 25, 2019. Upon emergence of the hyperbaric chamber the patient's vital signs remained stable. Pre and post blood glucose levels as documented. Patient was discharged in good condition. Past Medical History Chronic Problems (Last Updated 10/26/19 @ 15:[address] Meena Coyne, DO) Sacral decubitus ulcer, stage IV (Chronic) Decubitus ulcer of right buttock, stage 4 (Chronic) Decubitus ulcer of left buttock, stage 4 (Chronic) Chronic osteomyelitis involving pelvic region and thigh (Chronic) Paraplegia (Chronic) Allergies/Adverse Reactions: Allergies lidocaine Allergy (Verified 09/03/19 13:05) Unknown Home Medications: Ambulatory Orders Medication Instructions Recorded Sitagliptin Phosphate [Januvia] 100 mg PO DAILY 10/11/17 Baclofen 5 mg PO BID 10/12/18 Diazepam [Valium] 5 mg PO BID 10/12/18 Fentanyl 200 ea TD 10/12/18 Ferrous Sulfate 325 mg PO 10/12/18 Insulin Glargine,Hum.rec.anlog 10 unit SQ 10/12/18 [Lantus Solostar] Insulin Lispro [Humalog KwikPen] unit SQ 10/12/18 Magnesium Oxide [Magnesium] 400 mg PO BID 10/12/18 Melatonin 3 mg PO 10/12/18 Metoclopramide HCl [Reglan] 5 mg PO TID 10/12/18 Oxycodone [Oxyfast] 30 mg PO Q4H PRN 10/12/18 Pregabalin [Lyrica] 50 mg PO BID 10/12/18 Sitagliptin Phosphate [Januvia] 100 mg PO 10/12/18 traZODone [Desyrel] 50 mg PO QHS 10/12/18 Meloxicam 7.5 mg PO BID PRN 05/17/19 Methenamine Hippurate [Hiprex] 1 gm PO BID 05/17/19 Maternal Family History: No pertinent history Smoking Status: Former smoker Tobacco Use: Non-smoker Physical Exam Vital Signs Temp Pulse Resp BP 97.8 F 88 18 107/63 11/01/19 11:59 11/01/19 11:59 11/01/19 11:59 11/01/19 11:59 General: Alert, Oriented x3, Cooperative, No apparent distress HEENT: Atraumatic, TM's Clear Lungs: Clear to auscultation, Normal air movement Cardiovascular: Regular rate, Regular Rhythm Psych/Mental Status: Normal Affect, Appropriate, Alert and oriented to time, place, person, mood and affect Assessment/Plan Active Problems (Last Updated 10/26/19 @ 15:[address] Meena Coyne, DO) Sacral decubitus ulcer, stage IV (Chronic) Decubitus ulcer of right buttock, stage 4 (Chronic) Decubitus ulcer of left buttock, stage 4 (Chronic) Chronic osteomyelitis involving pelvic region and thigh (Chronic) Paraplegia (Chronic) Treatment Course Number Number of HBO Treatments 40 Ordered Treatment Course Number 1 Treatment # 32 Chamber # [id number] Chamber Type Monoplace HBO Diagnosis/Indication Diagnosis/Indication(s) for Standard/Conservative Hyperbaric Therapy Diabetes - Detail Diabetes Diabetes Type II Diabetes Control Uncontrolled Other - Detail Chronic Refractory Yes Osteomyelitis (specify site in comment) Treatment Plan KRISTEN (Atmospheric Absolute) 2 Number of Minutes 90 Number of Air Breaks 0 2
[2019-11-05 12:21] LABS: Bedside Glucose 132 mg/dL (70-110)
[2019-11-06 09:56] LABS: Bedside Glucose 172 mg/dL (70-110)
[2019-11-06 12:05] LABS: Bedside Glucose 140 mg/dL (70-110)
[2019-11-06 12:48] VITALS: BP 116/61; BP 90/53; PULSE 101; PULSE 94; RESP 16; TEMP 36.7; TEMP 37.1
--- NOTE | 2019-11-06 12:51 | PCM.HBO.PN ---
History of Present Illness Date of Service: 11/06/19 Presenting Chief Complaint: Non healing, chronic decubitus pressure ulcers, stage IV, with osteomyelitis - thigh, buttock, sacrum. GABBI CARBAJAL is a 34 year old currently undergoing hyperbaric oxygen therapy for for stage IV pressure ulceration and chronic refractory osteomyelitis right posterior proximal thigh/buttock/sacral region. Progress: Today represents 33rd hyperbaric oxygen treatment of 40 planned treatments. Tolerance of hyperbaric oxygen therapy: Hyperbaric oxygen treatment was provided as per the facility's protocol at 2.0 KRISTEN and 100% oxygen for 90 minutes. There were no air breaks. The patient tolerated hyperbaric oxygen well, without complications or complaints. He underwent bilateral myringotomy tube placement on October 25, 2019. Upon emergence of the hyperbaric chamber the patient's vital signs remained stable. Pre and post blood glucose levels as documented. Patient was discharged in good condition. Past Medical History Chronic Problems (Last Updated 10/26/19 @ 15:[address] Meena Coyne, DO) Sacral decubitus ulcer, stage IV (Chronic) Decubitus ulcer of right buttock, stage 4 (Chronic) Decubitus ulcer of left buttock, stage 4 (Chronic) Chronic osteomyelitis involving pelvic region and thigh (Chronic) Paraplegia (Chronic) Allergies/Adverse Reactions: Allergies lidocaine Allergy (Verified 09/03/19 13:05) Unknown Home Medications: Ambulatory Orders Medication Instructions Recorded Sitagliptin Phosphate [Januvia] 100 mg PO DAILY 10/11/17 Baclofen 5 mg PO BID 10/12/18 Diazepam [Valium] 5 mg PO BID 10/12/18 Fentanyl 200 ea TD 10/12/18 Ferrous Sulfate 325 mg PO 10/12/18 Insulin Glargine,Hum.rec.anlog 10 unit SQ 10/12/18 [Lantus Solostar] Insulin Lispro [Humalog KwikPen] unit SQ 10/12/18 Magnesium Oxide [Magnesium] 400 mg PO BID 10/12/18 Melatonin 3 mg PO 10/12/18 Metoclopramide HCl [Reglan] 5 mg PO TID 10/12/18 Oxycodone [Oxyfast] 30 mg PO Q4H PRN 10/12/18 Pregabalin [Lyrica] 50 mg PO BID 10/12/18 Sitagliptin Phosphate [Januvia] 100 mg PO 10/12/18 traZODone [Desyrel] 50 mg PO QHS 10/12/18 Meloxicam 7.5 mg PO BID PRN 05/17/19 Methenamine Hippurate [Hiprex] 1 gm PO BID 05/17/19 Maternal Family History: No pertinent history Smoking Status: Former smoker Tobacco Use: Non-smoker Physical Exam Vital Signs Temp Pulse Resp BP 98.0 F 94 16 90/53 L 11/06/19 12:48 11/06/19 12:48 11/06/19 12:48 11/06/19 12:48 General: Alert, Oriented x3, Cooperative, No apparent distress, Well developed, Well nourished HEENT: Atraumatic, PERRLA, EOMI, Normocephalic Lungs: Normal air movement Psych/Mental Status: Normal Affect, Appropriate, Alert and oriented to time, place, person, mood and affect Assessment/Plan Active Problems (Last Updated 10/26/19 @ 15:[address] Meena Coyne, DO) Sacral decubitus ulcer, stage IV (Chronic) Decubitus ulcer of right buttock, stage 4 (Chronic) Decubitus ulcer of left buttock, stage 4 (Chronic) Chronic osteomyelitis involving pelvic region and thigh (Chronic) Paraplegia (Chronic) The patient appears to be tolerating hyperbaric oxygen therapy well, which will be continued as per the patient's medical plan. Treatment Course Number Number of HBO Treatments 40 Ordered Treatment Course Number 1 Treatment # 33 Chamber # 2 Chamber Type Monoplace HBO Diagnosis/Indication Diagnosis/Indication(s) for Standard/Conservative Hyperbaric Therapy Diabetes - Detail Diabetes Diabetes Type II Diabetes Control Uncontrolled Other - Detail Chronic Refractory Yes Osteomyelitis (specify site in comment) Treatment Plan KRISTEN (Atmospheric Absolute) 2 Number of Minutes 90 Number of Air Breaks 0
[2019-11-07 10:06] LABS: Bedside Glucose 172 mg/dL (70-110)
[2019-11-07 12:10] LABS: Bedside Glucose 188 mg/dL (70-110)
--- NOTE | 2019-11-07 12:33 | PCM.HBO.PN ---
History of Present Illness Date of Service: 11/07/19 Presenting Chief Complaint: Non healing, chronic decubitus pressure ulcers, stage IV, with osteomyelitis - thigh, buttock, sacrum. GABBI CARBAJAL is a 34 year old currently undergoing hyperbaric oxygen therapy for for stage IV pressure ulceration and chronic refractory osteomyelitis right posterior proximal thigh/buttock/sacral region. Progress: Today represents 34th hyperbaric oxygen treatment of 40 planned treatments. Tolerance of hyperbaric oxygen therapy: Hyperbaric oxygen treatment was provided as per the facility's protocol at 2.0 KRISTEN and 100% oxygen for 90 minutes. There were no air breaks. The patient tolerated hyperbaric oxygen well, without complications or complaints. He underwent bilateral myringotomy tube placement on October 25, 2019. Upon emergence of the hyperbaric chamber the patient's vital signs remained stable. Pre and post blood glucose levels as documented. Patient was discharged in good condition. Past Medical History Chronic Problems (Last Updated 10/26/19 @ 15:[address] Meena Coyen, DO) Sacral decubitus ulcer, stage IV (Chronic) Decubitus ulcer of right buttock, stage 4 (Chronic) Decubitus ulcer of left buttock, stage 4 (Chronic) Chronic osteomyelitis involving pelvic region and thigh (Chronic) Paraplegia (Chronic) Allergies/Adverse Reactions: Allergies lidocaine Allergy (Verified 09/03/19 13:05) Unknown Home Medications: Ambulatory Orders Medication Instructions Recorded Sitagliptin Phosphate [Januvia] 100 mg PO DAILY 10/11/17 Baclofen 5 mg PO BID 10/12/18 Diazepam [Valium] 5 mg PO BID 10/12/18 Fentanyl 200 ea TD 10/12/18 Ferrous Sulfate 325 mg PO 10/12/18 Insulin Glargine,Hum.rec.anlog 10 unit SQ 10/12/18 [Lantus Solostar] Insulin Lispro [Humalog KwikPen] unit SQ 10/12/18 Magnesium Oxide [Magnesium] 400 mg PO BID 10/12/18 Melatonin 3 mg PO 10/12/18 Metoclopramide HCl [Reglan] 5 mg PO TID 10/12/18 Oxycodone [Oxyfast] 30 mg PO Q4H PRN 10/12/18 Pregabalin [Lyrica] 50 mg PO BID 10/12/18 Sitagliptin Phosphate [Januvia] 100 mg PO 10/12/18 traZODone [Desyrel] 50 mg PO QHS 10/12/18 Meloxicam 7.5 mg PO BID PRN 05/17/19 Methenamine Hippurate [Hiprex] 1 gm PO BID 05/17/19 Maternal Family History: No pertinent history Smoking Status: Former smoker Tobacco Use: Non-smoker Physical Exam Vital Signs Temp Pulse Resp BP 98.0 F 94 16 90/53 L 11/06/19 12:48 11/06/19 12:48 11/06/19 12:48 11/06/19 12:48 Assessment/Plan Active Problems (Last Updated 10/26/19 @ 15:[address] Meena Coyne, DO) Sacral decubitus ulcer, stage IV (Chronic) Decubitus ulcer of right buttock, stage 4 (Chronic) Decubitus ulcer of left buttock, stage 4 (Chronic) Chronic osteomyelitis involving pelvic region and thigh (Chronic) Paraplegia (Chronic) The patient appears to be tolerating hyperbaric oxygen therapy well, which will be continued as per the patient's medical plan. Treatment Course Number Number of HBO Treatments 40 Ordered Treatment Course Number 1 Treatment # 33 Chamber # 2 Chamber Type Monoplace HBO Diagnosis/Indication Diagnosis/Indication(s) for Standard/Conservative Hyperbaric Therapy Diabetes - Detail Diabetes Diabetes Type II Diabetes Control Uncontrolled Other - Detail Chronic Refractory Yes Osteomyelitis (specify site in comment) Treatment Plan KRISTEN (Atmospheric Absolute) 2 Number of Minutes 90 Number of Air Breaks 0
[2019-11-07 15:01] VITALS: BP 110/61; BP 133/52; PULSE 80; PULSE 81; RESP 18; TEMP 36; TEMP 36.6
[2019-11-08 09:41] VITALS: BP 92/34; PULSE 85; RESP 16; TEMP 36.4; BMI 21.8
--- NOTE | 2019-11-08 10:15 | PCM.WC.PN ---
(1) Chronic osteomyelitis involving pelvic region and thigh Status: Chronic Current Visit: Yes Code(s): M86.659 - Other chronic osteomyelitis, unspecified thigh (2) Decubitus ulcer of left buttock, stage 4 Status: Chronic Current Visit: Yes Code(s): L89.324 - Pressure ulcer of left buttock, stage 4 (3) Decubitus ulcer of right buttock, stage 4 Status: Chronic Current Visit: Yes Code(s): L89.314 - Pressure ulcer of right buttock, stage 4 (4) Paraplegia Status: Chronic Current Visit: Yes Code(s): G82.20 - Paraplegia, unspecified (5) Sacral decubitus ulcer, stage IV Status: Chronic Current Visit: Yes Code(s): L89.154 - Pressure ulcer of sacral region, stage 4 Type of Wound Date of Service: 11/08/19 Chief Complaint: Non healing, chronic decubitus pressure ulcers, stage IV, with osteomyelitis - thigh, buttock, sacrum. History of Wound: Mr. Joyce is a 33yo well known to the wound center but was last seen here over a month ago. Initial sacral ulcer was said to have started in November and Buttock ulcers were noted subsequently. He has had an extensive hospital stay over the last couple of months following a work related injury. Both during his hopsital and care home stays, he had wound care ranging from surgical debridement, wound vac and collagen use. He was scheduled to be restarted on his wound Vac prior to his discharge from the [facility]. He reports significant drainage from the wounds. Also of note is a history of osteomyelitis for which he was on a 6 week IV antibiotic. His however states they were informed that he had developed chronic extensive pelvic area osteomyelitis. He feels well otherwise at this time and denies chills, fever,nausea, vomitting or change in bowel habit. 02/22/2019: Above, he was last seen here over a month ago. Had an extensive hospital stay [facility] due to complications from prior neck surgery. They state that his ulcers have been stable. Been doing the acetic acid soak for 10 minutes and then calcium alginate/collagen dressings. Is any concerns at this time. Progress of Wound: No new concerns. Stable/Improving ulcers. - Physical Exam Vital Signs Temp Pulse Resp BP 97.5 F L 85 16 92/34 L 11/08/19 09:41 11/08/19 09:41 11/08/19 09:41 11/08/19 09:41 General: Alert, Oriented x3, Cooperative, No apparent distress HEENT: Atraumatic, Normocephalic Oral: Moist Mucosa Neck: Supple Lungs: Normal air movement Extremities: No cyanosis Skin: Ulcer/ Wound Wound Measurements and Assessment WC - Nurse 1 - General Ulcer Measurement Start: 10/15/19 10:21 Freq: Status: Active Protocol: Activity Type Activity Date Activity User E-Sign Co-Sign Detail Recorded Client Recorded Date Recorded By Document 11/08/19 09:41 [facility] [id number] 11/08/19 09:53 [facility] 11/08/19 09:41 Wound Center Nurse 1 [Ulcer Assessment] #7 Sacral -Combined with other wound No -Current Size (cm) - Length 6 -Current Size (cm) - Width 13.4 -Current Size (cm) - Depth 1.3 -Total Square Cm 80.4 -Photo Taken No -Tunneling No -Undermining/Tunneling Yes -Undermining/Tunneling Starts (O' 1 clock) -Undermining/Tunneling Ends (O'clock) 3 -Maximum Distance (cm) 3.1 -Circular Undermining No -Exudate Amt Large -Exudate Type Serosanguineous -Wound Margin Thickened & Rolled Under -Granulation Amt Medium (34-66%) -Granulation Quality Red -Slough/Fibrin Yes -Necrosis Amt Small (1-33%) -Necrotic Tissue Type Adherent Slough -Structure Exposed N/A -Texture (Sheyla-wound Skin Appearance) Assessed -Moisture (Sheyla-wound Skin Appearance Maceration ) -Color (Sheyla-wound Skin Appearance) Assessed -Temperature (Sheyla-wound Skin No Abnormality Appearance) (Pt Warm) -Tenderness on Palpation (Sheyla-wound No Skin Appearance) -Ulcer Cleansing Wound Cleanser -Foul Odor after Cleansing No #6 R Buttocks -Combined with other wound No -Current Size (cm) - Length 8.6 -Current Size (cm) - Width 4.2 -Current Size (cm) - Depth 1.4 -Total Square Cm 36.12 -Photo Taken No -Tunneling Yes -Tunneling Position (O'clock) 1 -Tunneling Distance (cm) 1.2 -Undermining/Tunneling No -Circular Undermining No -Exudate Amt Large -Exudate Type Serosanguineous -Wound Margin Flat & Intact -Granulation Amt Large (67-100%) -Granulation Quality Red -Slough/Fibrin Yes -Necrosis Amt Small (1-33%) -Necrotic Tissue Type Adherent Slough -Structure Exposed N/A -Texture (Sheyla-wound Skin Appearance) Assessed -Moisture (Sheyla-wound Skin Appearance Assessed ) -Color (Sheyla-wound Skin Appearance) Assessed -Temperature (Sheyla-wound Skin No Abnormality Appearance) (Pt Warm) -Tenderness on Palpation (Sheyla-wound No Skin Appearance) -Ulcer Cleansing Wound Cleanser -Foul Odor after Cleansing No #5 L Buttocks -Combined with other wound No -Current Size (cm) - Length 7.8 -Current Size (cm) - Width 4.9 -Current Size (cm) - Depth 2 -Total Square Cm 38.22 -Photo Taken No -Tunneling No -Undermining/Tunneling Yes -Undermining/Tunneling Starts (O' 12 clock) -Undermining/Tunneling Ends (O'clock) 5 -Maximum Distance (cm) 1.9 -Circular Undermining No -Exudate Amt Large -Exudate Type Serosanguineous -Wound Margin Flat & Intact -Granulation Amt Large (67-100%) -Granulation Quality Red -Slough/Fibrin Yes -Necrosis Amt Small (1-33%) -Necrotic Tissue Type Adherent Slough -Structure Exposed N/A -Texture (Sheyla-wound Skin Appearance) Assessed -Moisture (Sheyla-wound Skin Appearance Assessed ) -Color (Sheyla-wound Skin Appearance) Assessed -Temperature (Sheyla-wound Skin No Abnormality Appearance) (Pt Warm) -Tenderness on Palpation (Sheyla-wound No Skin Appearance) -Ulcer Cleansing Wound Cleanser -Foul Odor after Cleansing No WC - Nurse 2 - General Ulcer CM Notes Start: 10/29/19 10:29 Freq: Status: Active Protocol: Activity Type Activity Date Activity User E-Sign Co-Sign Detail Recorded Client Recorded Date Recorded By Document 11/08/19 10:00 MW [id number] 11/08/19 10:05 MW 11/08/19 10:00 Wound Center Nurse 2 [Procedure/Treatment] #7 Sacral -Time 10:01 -Correct Patient Yes -Correct Side, Site, Position Yes -Correct Procedure Yes -Procedure Performed Yes -Type of Procedure Debridement -Clinical Debridement Subcutaneous -Tissue Removed Subcutaneous -Post Debridement (cm) - Length 6.1 -Post Debridement (cm) - Width 13.0 -Post Debridement (cm) - Depth 1.5 -Total Square (Post) (cm) 79.30 -Area of Debridement (cm) - Length 6.1 -Area of Debridement (cm) - Width 13.0 -Total Square (Area) (cm) 79.30 -Tunneling No -Undermining/Tunneling No -Circular Undermining No -Wound/Ulcer Outcome Not Healed -Ulcer Cleansing Rinsed/ Irrigated with Saline -Foul Odor after Cleansing No -Bioengineered Tissue No -Bleeding Controlled with Pressure -Offloading No -Treatment Response Procedure Tolerated Well -Debridement - Subq, 1st 20sq cm Yes -Debridement, SubQ, ea addt'l 20sq cm 7 or part thereof #6 R Buttocks -Time 10:02 -Correct Patient Yes -Correct Side, Site, Position Yes -Correct Procedure Yes -Procedure Performed Yes -Type of Procedure Debridement -Clinical Debridement Subcutaneous -Post Debridement (cm) - Length 7.5 -Post Debridement (cm) - Width 4.5 -Post Debridement (cm) - Depth 1.5 -Total Square (Post) (cm) 33.75 -Area of Debridement (cm) - Length 7.5 -Area of Debridement (cm) - Width 4.5 -Total Square (Area) (cm) 33.75 -Tunneling No -Undermining/Tunneling No -Circular Undermining No -Wound/Ulcer Outcome Not Healed -Ulcer Cleansing Rinsed/ Irrigated with Saline -Foul Odor after Cleansing No -Bioengineered Tissue No -Bleeding Controlled with Pressure -Offloading No -Debridement - Subq, 1st 20sq cm No #5 L Buttocks -Time 10:03 -Correct Patient Yes -Correct Side, Site, Position Yes -Correct Procedure Yes -Procedure Performed Yes -Type of Procedure Debridement -Clinical Debridement Subcutaneous -Tissue Removed Subcutaneous -Post Debridement (cm) - Length 8.0 -Post Debridement (cm) - Width 5.5 -Post Debridement (cm) - Depth 2.1 -Total Square (Post) (cm) 44.00 -Area of Debridement (cm) - Length 8.0 -Area of Debridement (cm) - Width 5.5 -Total Square (Area) (cm) 44.00 -Tunneling No -Undermining/Tunneling No -Circular Undermining No -Wound/Ulcer Outcome Not Healed -Ulcer Cleansing Rinsed/ Irrigated with Saline -Foul Odor after Cleansing No -Bioengineered Tissue No -Bleeding Controlled with Pressure -Offloading No -Treatment Response Procedure Tolerated Well -Debridement - Subq, 1st 20sq cm No [See Physician Procedure note for Specifics] Pain Scale: 0-10 Numeric [Pain] -Is Patient Pain Free? Yes - Nurse 3 - General Ulcer D/C NN Start: 10/29/19 23:27 Freq: Status: Active Protocol: Activity Type Activity Date Activity User E-Sign Co-Sign Detail Recorded Client Recorded Date Recorded By Document 11/06/19 12:48 [id number] 11/06/19 12:51 11/06/19 12:48 -Is Patient Pain Free? Yes - Visit Discharge [Visit Discharge Information] -Discharge Condition Stable -Ambulatory Status Wheelchair -Transportation Private Auto -Accompanied by caregiver -Medication Reconcilliation completed Yes & provided to patient/care provider -Clinical Summary of Care Provided Yes Musculoskeletal: No Muscle Wasting Neurological: Cranial nerves II-XII grossly intact Psych/Mental Status: Normal Affect Debridement Note Post-Debridement Measurements/Treatment - Nurse 2 - General Ulcer CM Notes Start: 10/29/19 10:29 Freq: Status: Active Protocol: Activity Type Activity Date Activity User E-Sign Co-Sign Detail Recorded Client Recorded Date Recorded By Document 11/01/19 10:46 MW [id number] 11/01/19 10:52 MW Document 11/08/19 10:00 MW [id number] 11/08/19 10:05 MW 11/01/19 11/08/19 10:46 10:00 Wound Center Nurse 2 #7 Sacral -Time 10:47 10:01 -Correct Patient Yes Yes -Correct Side, Site, Position Yes Yes -Correct Procedure Yes Yes -Procedure Performed Yes Yes -Type of Procedure Debridement Debridement -Clinical Debridement Subcutaneous Subcutaneous -Tissue Removed Subcutaneous Subcutaneous -Post Debridement (cm) - Length 6.5 6.1 -Post Debridement (cm) - Width 13.0 13.0 -Post Debridement (cm) - Depth 1.8 1.5 -Total Square (Post) (cm) 84.50 79.30 -Area of Debridement (cm) - Length 6.5 6.1 -Area of Debridement (cm) - Width 13.0 13.0 -Total Square (Area) (cm) 84.50 79.30 -Tunneling No No -Undermining/Tunneling No No -Circular Undermining No No -Wound/Ulcer Outcome Not Healed Not Healed -Ulcer Cleansing Rinsed/ Rinsed/ Irrigated with Irrigated with Saline Saline -Foul Odor after Cleansing No No -Bioengineered Tissue No No -Bleeding Controlled with Pressure Pressure -Offloading No No -Treatment Response Procedure Procedure Tolerated Well Tolerated Well -Debridement - Subq, 1st 20sq cm No Yes -Debridement, SubQ, ea addt'l 20sq cm 7 or part thereof #6 R Buttocks -Time 10:48 10:02 -Correct Patient Yes Yes -Correct Side, Site, Position Yes Yes -Correct Procedure Yes Yes -Procedure Performed Yes Yes -Type of Procedure Debridement Debridement -Clinical Debridement Subcutaneous Subcutaneous -Tissue Removed Subcutaneous -Post Debridement (cm) - Length 8.5 7.5 -Post Debridement (cm) - Width 4.4 4.5 -Post Debridement (cm) - Depth 1.0 1.5 -Total Square (Post) (cm) 37.40 33.75 -Area of Debridement (cm) - Length 8.5 7.5 -Area of Debridement (cm) - Width 4.4 4.5 -Total Square (Area) (cm) 37.40 33.75 -Tunneling No No -Undermining/Tunneling No No -Circular Undermining No No -Wound/Ulcer Outcome Not Healed Not Healed -Ulcer Cleansing Rinsed/ Rinsed/ Irrigated with Irrigated with Saline Saline -Foul Odor after Cleansing No No -Bioengineered Tissue No No -Bleeding Controlled with Pressure Pressure -Offloading No No -Debridement - Subq, 1st 20sq cm No No #5 L Buttocks -Time 10:48 10:03 -Correct Patient Yes Yes -Correct Side, Site, Position Yes Yes -Correct Procedure Yes Yes -Procedure Performed Yes Yes -Type of Procedure Debridement Debridement -Clinical Debridement Subcutaneous Subcutaneous -Tissue Removed Subcutaneous Subcutaneous -Post Debridement (cm) - Length 8.0 8.0 -Post Debridement (cm) - Width 5.0 5.5 -Post Debridement (cm) - Depth 1.8 2.1 -Total Square (Post) (cm) 40.00 44.00 -Area of Debridement (cm) - Length 8.0 8.0 -Area of Debridement (cm) - Width 5.0 5.5 -Total Square (Area) (cm) 40.00 44.00 -Tunneling No No -Undermining/Tunneling No No -Circular Undermining No No -Wound/Ulcer Outcome Not Healed -Ulcer Cleansing Rinsed/ Rinsed/ Irrigated with Irrigated with Saline Saline -Foul Odor after Cleansing No No -Bioengineered Tissue No No -Bleeding Controlled with Pressure Pressure -Offloading No No -Treatment Response Procedure Tolerated Well -Debridement - Subq, 1st 20sq cm Yes No -Debridement, SubQ, ea addt'l 20sq cm 8 or part thereof Pain Scale: 0-10 Numeric Is Patient Pain Free? Yes Yes - Nurse 3 - General Ulcer D/C NN Start: 10/29/19 23:27 Freq: Status: Active Protocol: Activity Type Activity Date Activity User E-Sign Co-Sign Detail Recorded Client Recorded Date Recorded By Document 10/30/19 13:05 [id number] 10/30/19 13:08 Document 11/01/19 11:02 RB [id number] 11/01/19 11:07 Document 11/06/19 12:48 [id number] 11/06/19 12:51 10/30/19 11/01/19 11/06/19 13:05 11:02 12:48 Wound Care Nurse 3 #7 Sacral -Ulcer Cleansing acetic acid 0. 25% then rinse w saline to all ulcer -Other Dressing collagen then calcium alginate mepilex #6 R Buttocks -Ulcer Cleansing acetic ACID then rinse saline -Other Dressing collagen , clacium alginate then abd #5 L Buttocks -Ulcer Cleansing acetic acid the rinse saline -Other Dressing collagen then calcium alginate , abd Treatment Response Procedure Tolerated Well Pain Scale: 0-10 Numeric Is Patient Pain Free? Yes Yes Yes Teaching: Wound Center Offload: Mattress, Cushion, Reposition -Person Taught Patient,Primary Caregiver -Teaching Method Discussion -Response to teaching Verbalize understanding - Visit Discharge Discharge Condition Stable Stable Stable Ambulatory Status Wheelchair Stretcher Wheelchair Transportation Private Auto Private Auto Private Auto Accompanied by caregiver Medication Reconcilliation completed & Yes No Yes provided to patient/care provider Clinical Summary of Care Provided Yes Yes Yes Notes: pt to HBO after appointment Wound debrided: Sacral Wound Grade/Stage: Stage IV Type of Debridement: Excisional debridement Anesthesia Used: 4% Lidocaine Solution Depth: Down to and including healthy tissue, in the subcutaneous layer Percentage of wound debrided: 100 Instrument Used: 7mm curette Tissue Removed: Slough and devitalized tissue Severity: Fat Layer Exposed Amount of bleeding with debridement: Mild Bleeding Controlled with: Pressure Patient tolerated procedure well - Additional Wound Wound debrided: Right Buttock Wound Grade/Stage: Stage IV Type of Debridement: Excisional debridement Anesthesia Used: 4% Lidocaine Solution Depth: Down to and including healthy tissue, in the subcutaneous layer Percentage of wound debrided: 100 Instrument Used: 7mm curette Tissue Removed: Slough and devitalized tissue Severity: Fat Layer Exposed Amount of bleeding with debridement: Mild Bleeding Controlled with: Pressure Patient tolerated procedure: Patient tolerated procedure well - Additional Wound Wound debrided: Left Buttock Wound Grade/Stage: Stage IV Type of Debridement: Excisional debridement Anesthesia Used: 4% Lidocaine Solution Depth: Down to and including healthy tissue, in the subcutaneous layer Percentage of wound debrided: 100 Instrument Used: 7mm curette Tissue Removed: Slough and devitalized tissue Severity: Fat Layer Exposed Amount of bleeding with debridement: Mild Bleeding Controlled with: Pressure Patient tolerated procedure: Patient tolerated procedure well Assessment/Plan Active Problems (Last Updated 10/26/19 @ 15:[address] Meena Coyne DO) Sacral decubitus ulcer, stage IV (Chronic) Decubitus ulcer of right buttock, stage 4 (Chronic) Decubitus ulcer of left buttock, stage 4 (Chronic) Chronic osteomyelitis involving pelvic region and thigh (Chronic) Paraplegia (Chronic) Assessment: Same as above. Plan: Stable/improving ulcers. Debridement done as documented above, procedure well-tolerated. Continue 10 minute Acetic acid soak to all ulcers then calcium alginate/collagen dressing. Change daily to twice daily depending on drainage. Continue optimal dietary and protein intake. Offloading also recommended. His questions were answered and they were advised to call with any further questions or concerns. Follow up in 1 week. This note was generated with [employer] software. It may contain incorrect words, spelling, and punctuation that were not noted in checking the note before signing. [id number]: [id number] Oxana subq tissue 20 sq cm/< Add On Codes: 37772 Oxana subq tissue add-on - Additional Sq Cm debrided, please refer to clinical note.
[2019-11-08 10:46] LABS: Bedside Glucose 267 mg/dL (70-110)
[2019-11-08 11:02] VITALS: BP 132/50; BP 92/34; PULSE 84; PULSE 85; RESP 16; RESP 18; TEMP 36.2; TEMP 36.6
--- NOTE | 2019-11-08 12:24 | PCM.HBO.PN ---
History of Present Illness Date of Service: 11/08/19 Presenting Chief Complaint: Non healing, chronic decubitus pressure ulcers, stage IV, with osteomyelitis - thigh, buttock, sacrum. GABBI CARBAJAL is a 34 year old currently undergoing hyperbaric oxygen therapy for for stage IV pressure ulceration and chronic refractory osteomyelitis right posterior proximal thigh/buttock/sacral region. Progress: Today represents 35th hyperbaric oxygen treatment of 40 planned treatments for this session. Tolerance of hyperbaric oxygen therapy: Hyperbaric oxygen treatment was provided as per the facility's protocol at 2.0 KRISTEN and 100% oxygen for 90 minutes. There were no air breaks. The patient tolerated hyperbaric oxygen well, without complications or complaints. He underwent bilateral myringotomy tube placement on October 25, 2019. Upon emergence of the hyperbaric chamber the patient's vital signs remained stable. Pre and post blood glucose levels as documented. Patient was discharged in good condition. Past Medical History Chronic Problems (Last Updated 10/26/19 @ 15:[address] Meena Coyne, DO) Sacral decubitus ulcer, stage IV (Chronic) Decubitus ulcer of right buttock, stage 4 (Chronic) Decubitus ulcer of left buttock, stage 4 (Chronic) Chronic osteomyelitis involving pelvic region and thigh (Chronic) Paraplegia (Chronic) Allergies/Adverse Reactions: Allergies lidocaine Allergy (Verified 09/03/19 13:05) Unknown Home Medications: Ambulatory Orders Medication Instructions Recorded Sitagliptin Phosphate [Januvia] 100 mg PO DAILY 10/11/17 Baclofen 5 mg PO BID 10/12/18 Diazepam [Valium] 5 mg PO BID 10/12/18 Fentanyl 200 ea TD 10/12/18 Ferrous Sulfate 325 mg PO 10/12/18 Insulin Glargine,Hum.rec.anlog 10 unit SQ 10/12/18 [Lantus Solostar] Insulin Lispro [Humalog KwikPen] unit SQ 10/12/18 Magnesium Oxide [Magnesium] 400 mg PO BID 10/12/18 Melatonin 3 mg PO 10/12/18 Metoclopramide HCl [Reglan] 5 mg PO TID 10/12/18 Oxycodone [Oxyfast] 30 mg PO Q4H PRN 10/12/18 Pregabalin [Lyrica] 50 mg PO BID 10/12/18 Sitagliptin Phosphate [Januvia] 100 mg PO 10/12/18 traZODone [Desyrel] 50 mg PO QHS 10/12/18 Meloxicam 7.5 mg PO BID PRN 05/17/19 Methenamine Hippurate [Hiprex] 1 gm PO BID 05/17/19 Maternal Family History: No pertinent history Smoking Status: Former smoker Tobacco Use: Non-smoker Physical Exam Vital Signs Temp Pulse Resp BP 97.5 F L 85 16 92/34 L 11/08/19 09:41 11/08/19 09:41 11/08/19 09:41 11/08/19 09:41 General: Alert, Oriented x3, Cooperative, No apparent distress HEENT: Atraumatic, Normocephalic Lungs: Normal air movement Cardiovascular: Regular Rhythm Psych/Mental Status: Normal Affect Assessment/Plan Active Problems (Last Updated 10/26/19 @ 15:[address] Meena Coyen, DO) Sacral decubitus ulcer, stage IV (Chronic) Decubitus ulcer of right buttock, stage 4 (Chronic) Decubitus ulcer of left buttock, stage 4 (Chronic) Chronic osteomyelitis involving pelvic region and thigh (Chronic) Paraplegia (Chronic) The patient appears to be tolerating hyperbaric oxygen therapy well, which will be continued as per the patient's medical plan. Treatment Course Number Number of HBO Treatments 40 Ordered Treatment Course Number 1 Treatment # 35 Chamber # [id number] Chamber Type Monoplace HBO Diagnosis/Indication Diagnosis/Indication(s) for Standard/Conservative Hyperbaric Therapy Diabetes - Detail Diabetes Diabetes Type II Diabetes Control Uncontrolled Other - Detail Chronic Refractory Yes Osteomyelitis (specify site in comment) Treatment Plan KRISTEN (Atmospheric Absolute) 2 Number of Minutes 90 Number of Air Breaks 0 HBO supervision.
[2019-11-08 12:36] LABS: Bedside Glucose 167 mg/dL (70-110)
[2019-11-09 10:16] LABS: Bedside Glucose 153 mg/dL (70-110)
[2019-11-09 12:10] LABS: Bedside Glucose 178 mg/dL (70-110)
[2019-11-09 12:54] VITALS: BP 105/79; BP 88/42; PULSE 91; PULSE 96; RESP 18; TEMP 37.3; TEMP 38.1
--- NOTE | 2019-11-09 16:22 | HBO.PN.PCM_ITS ---
History of Present Illness Date of Service: 11/09/19 Presenting Chief Complaint: Non healing, chronic decubitus pressure ulcers, stage IV, with osteomyelitis - thigh, buttock, sacrum. GABBI CARBAJAL is a 34 year old currently undergoing hyperbaric oxygen therapy for for stage IV pressure ulceration and chronic refractory osteomyelitis right posterior proximal thigh/buttock/sacral region. Progress: Today represents 36th hyperbaric oxygen treatment of 40 planned treatments for this session. Tolerance of hyperbaric oxygen therapy: Hyperbaric oxygen treatment was provided as per the facility's protocol at 2.0 KRISTEN and 100% oxygen for 90 minutes. There were no air breaks. The patient tolerated hyperbaric oxygen well, without complications or complaints. He underwent bilateral myringotomy tube placement on October 25, 2019. Upon emergence of the hyperbaric chamber the patient's vital signs remained stable. Pre and post blood glucose levels as documented. Patient was discharged in good condition. While preparing to transfer the patient from the stretcher, his nurse noted erythema and warmth to his left inner thigh, this was not present when he entered the chamber or this morning when she was getting him dressed. His temperature was checked and it was 100.5. Earlier he had a temperature of 99.2. I examined the patient and he denied any tenderness, no palpable cords present. I recommended that he be started on antibiotics to treat for cellulitis given his clinical appearance and history. Augmentin 875/125 mg twice daily for 10 days prescribed and called into his pharmacy. The area was outlined with marker and they were encouraged to go to ER if it spread beyond the markings. They a greed with the plan. Past Medical History Chronic Problems (Last Updated 10/26/19 @ 15:[address] Meena Coyne, DO) Sacral decubitus ulcer, stage IV (Chronic) Decubitus ulcer of right buttock, stage 4 (Chronic) Decubitus ulcer of left buttock, stage 4 (Chronic) Chronic osteomyelitis involving pelvic region and thigh (Chronic) Paraplegia (Chronic) Allergies/Adverse Reactions: Allergies lidocaine Allergy (Verified 09/03/19 13:05) Unknown Home Medications: Ambulatory Orders Medication Instructions Recorded Sitagliptin Phosphate [Januvia] 100 mg PO DAILY 10/11/17 Baclofen 5 mg PO BID 10/12/18 Diazepam [Valium] 5 mg PO BID 10/12/18 Fentanyl 200 ea TD 10/12/18 Ferrous Sulfate 325 mg PO 10/12/18 Insulin Glargine,Hum.rec.anlog 10 unit SQ 10/12/18 [Lantus Solostar] Insulin Lispro [Humalog KwikPen] unit SQ 10/12/18 Magnesium Oxide [Magnesium] 400 mg PO BID 10/12/18 Melatonin 3 mg PO 10/12/18 Metoclopramide HCl [Reglan] 5 mg PO TID 10/12/18 Oxycodone [Oxyfast] 30 mg PO Q4H PRN 10/12/18 Pregabalin [Lyrica] 50 mg PO BID 10/12/18 Sitagliptin Phosphate [Januvia] 100 mg PO 10/12/18 traZODone [Desyrel] 50 mg PO QHS 10/12/18 Meloxicam 7.5 mg PO BID PRN 05/17/19 Methenamine Hippurate [Hiprex] 1 gm PO BID 05/17/19 Maternal Family History: No pertinent history Smoking Status: Former smoker Tobacco Use: Non-smoker Physical Exam Vital Signs Temp Pulse Resp BP 99.2 F H 91 18 88/42 L 11/09/19 12:54 11/09/19 12:54 11/09/19 12:54 11/09/19 12:54 General: Alert, Oriented x3, Cooperative, No apparent distress Psych/Mental Status: Normal Affect, Appropriate Comment: left inner thigh from groin to mid thigh mildly erythematous and warm Assessment/Plan Active Problems (Last Updated 10/26/19 @ 15:[address] Meena Coyne, DO) Sacral decubitus ulcer, stage IV (Chronic) Decubitus ulcer of right buttock, stage 4 (Chronic) Decubitus ulcer of left buttock, stage 4 (Chronic) Chronic osteomyelitis involving pelvic region and thigh (Chronic) Paraplegia (Chronic) The patient appears to be tolerating hyperbaric oxygen therapy well, which will be continued as per the patient's medical plan. Treatment Course Number Number of HBO Treatments 40 Ordered Treatment Course Number 1 Treatment # 36 Chamber # [id number] Chamber Type Monoplace HBO Diagnosis/Indication Diagnosis/Indication(s) for Standard/Conservative Hyperbaric Therapy Diabetes - Detail Diabetes Diabetes Type II Diabetes Control Uncontrolled Other - Detail Chronic Refractory Yes Osteomyelitis (specify site in comment) Treatment Plan KRISTEN (Atmospheric Absolute) 2.0 Number of Minutes 90 Number of Air Breaks 0
[2019-11-12 09:56] LABS: Bedside Glucose 122 mg/dL (70-110)
[2019-11-12 10:11] LABS: Bedside Glucose 137 mg/dL (70-110)
[2019-11-12 10:25] VITALS: BP 110/67; BP 127/76; PULSE 89; PULSE 97; RESP 16; TEMP 36.9
[2019-11-12 12:10] LABS: Bedside Glucose 199 mg/dL (70-110)
--- NOTE | 2019-11-12 13:03 | PCM.HBO.PN ---
History of Present Illness Date of Service: 11/12/19 Presenting Chief Complaint: Non healing, chronic decubitus pressure ulcers, stage IV, with osteomyelitis - thigh, buttock, sacrum. GABBI CARBAJAL is a 34 year old currently undergoing hyperbaric oxygen therapy for for stage IV pressure ulceration and chronic refractory osteomyelitis right posterior proximal thigh/buttock/sacral region. Progress: Today represents 37th hyperbaric oxygen treatment of 40 planned treatments for this session. Tolerance of hyperbaric oxygen therapy: Hyperbaric oxygen treatment was provided as per the facility's protocol at 2.0 KRISTEN and 100% oxygen for 90 minutes. There were no air breaks. The patient tolerated hyperbaric oxygen well, without complications or complaints. He underwent bilateral myringotomy tube placement on October 25, 2019. Upon emergence of the hyperbaric chamber the patient's vital signs remained stable. Pre and post blood glucose levels as documented. Patient was discharged in good condition. Past Medical History Chronic Problems (Last Updated 10/26/19 @ 15:[address] Meena Coyne, DO) Sacral decubitus ulcer, stage IV (Chronic) Decubitus ulcer of right buttock, stage 4 (Chronic) Decubitus ulcer of left buttock, stage 4 (Chronic) Chronic osteomyelitis involving pelvic region and thigh (Chronic) Paraplegia (Chronic) Allergies/Adverse Reactions: Allergies lidocaine Allergy (Verified 09/03/19 13:05) Unknown Home Medications: Ambulatory Orders Medication Instructions Recorded Sitagliptin Phosphate [Januvia] 100 mg PO DAILY 10/11/17 Baclofen 5 mg PO BID 10/12/18 Diazepam [Valium] 5 mg PO BID 10/12/18 Fentanyl 200 ea TD 10/12/18 Ferrous Sulfate 325 mg PO 10/12/18 Insulin Glargine,Hum.rec.anlog 10 unit SQ 10/12/18 [Lantus Solostar] Insulin Lispro [Humalog KwikPen] unit SQ 10/12/18 Magnesium Oxide [Magnesium] 400 mg PO BID 10/12/18 Melatonin 3 mg PO 10/12/18 Metoclopramide HCl [Reglan] 5 mg PO TID 10/12/18 Oxycodone [Oxyfast] 30 mg PO Q4H PRN 10/12/18 Pregabalin [Lyrica] 50 mg PO BID 10/12/18 Sitagliptin Phosphate [Januvia] 100 mg PO 10/12/18 traZODone [Desyrel] 50 mg PO QHS 10/12/18 Meloxicam 7.5 mg PO BID PRN 05/17/19 Methenamine Hippurate [Hiprex] 1 gm PO BID 05/17/19 Maternal Family History: No pertinent history Smoking Status: Former smoker Tobacco Use: Non-smoker Physical Exam Vital Signs Temp Pulse Resp BP 98.4 F 97 16 110/67 11/12/19 10:25 11/12/19 10:25 11/12/19 10:25 11/12/19 10:25 General: Alert, Oriented x3, Cooperative, No apparent distress HEENT: Atraumatic, TM's Clear Lungs: Clear to auscultation, Normal air movement Cardiovascular: Regular rate, Regular Rhythm Psych/Mental Status: Normal Affect, Appropriate, Alert and oriented to time, place, person, mood and affect Assessment/Plan Active Problems (Last Updated 10/26/19 @ 15:[address] Meena Coyne, DO) Sacral decubitus ulcer, stage IV (Chronic) Decubitus ulcer of right buttock, stage 4 (Chronic) Decubitus ulcer of left buttock, stage 4 (Chronic) Chronic osteomyelitis involving pelvic region and thigh (Chronic) Paraplegia (Chronic) Treatment Course Number Number of HBO Treatments 40 Ordered Treatment Course Number 1 Treatment # 37 Chamber # [id number] Chamber Type Monoplace HBO Diagnosis/Indication Diagnosis/Indication(s) for Standard/Conservative Hyperbaric Therapy Diabetes - Detail Diabetes Diabetes Type II Diabetes Control Uncontrolled Other - Detail Chronic Refractory Yes Osteomyelitis (specify site in comment) Treatment Plan KRISTEN (Atmospheric Absolute) 2 Number of Minutes 90 Number of Air Breaks 0
== END 2019-11-12 23:59 ==
LOC: WC 10:00
PROVIDERS: Family Provider Family Medicine; Referring Provider Internal Medicine; Visit Provider Internal Medicine
DX: L89.324 Pressure ulcer of left buttock, stage 4 (principal); L89.314 Pressure ulcer of right buttock, stage 4; L89.154 Pressure ulcer of sacral region, stage 4; G82.20 Paraplegia, unspecified; M86.68 Other chronic osteomyelitis, other site; Z87.891 Personal history of nicotine dependence; Z79.899 Other long term (current) drug therapy; E11.9 Type 2 diabetes mellitus without complications; Z79.4 Long term (current) use of insulin
CPT/HCPCS: 11042; 11045; 82962; 99183; G0277

== ENCOUNTER 2019-12-12 10:30 | Outpatient (RCR) | payer OTHER, SELFPAY ==
[2019-11-08 09:41] VITALS: BMI 21.8
[2019-11-15 10:02] VITALS: BP 102/73; PULSE 93; RESP 18; TEMP 36.4; BMI 21.8
[2019-11-15 11:54] VITALS: BP 102/73; BP 116/54; PULSE 85; PULSE 93; RESP 16; RESP 18; TEMP 36.4
[2019-11-16 12:38] VITALS: BP 100/49; BP 133/64; PULSE 90; PULSE 95; RESP 16; TEMP 36.7; TEMP 36.9
--- NOTE | 2019-11-21 12:51 | PCM.HBO.PN ---
History of Present Illness Date of Service: 11/21/19 Presenting Chief Complaint: Non healing, chronic decubitus pressure ulcers, stage IV, with osteomyelitis - thigh, buttock, sacrum. GABBI CARBAJAL is a 34 year old currently undergoing hyperbaric oxygen therapy for osteomyelitis Progress:this is his 40th treatment and is receiving KRISTEN 2.0 90 min per treatment with no air breaks Tolerance of hyperbaric oxygen therapy:vital geoffrey stable before and after treatment Past Medical History Chronic Problems (Last Updated 10/26/19 @ 15:[address] Meena Coyne, DO) Chronic osteomyelitis involving pelvic region and thigh (Chronic) Sacral decubitus ulcer, stage IV (Chronic) Decubitus ulcer of right buttock, stage 4 (Chronic) Decubitus ulcer of left buttock, stage 4 (Chronic) Chronic osteomyelitis involving pelvic region and thigh (Chronic) Paraplegia (Chronic) Allergies/Adverse Reactions: Allergies lidocaine Allergy (Verified 09/03/19 13:05) Unknown Home Medications: Ambulatory Orders Medication Instructions Recorded Sitagliptin Phosphate [Januvia] 100 mg PO DAILY 10/11/17 Baclofen 5 mg PO BID 10/12/18 Diazepam [Valium] 5 mg PO BID 10/12/18 Fentanyl 200 ea TD 10/12/18 Ferrous Sulfate 325 mg PO 10/12/18 Insulin Glargine,Hum.rec.anlog 10 unit SQ 10/12/18 [Lantus Solostar] Insulin Lispro [Humalog KwikPen] unit SQ 10/12/18 Magnesium Oxide [Magnesium] 400 mg PO BID 10/12/18 Melatonin 3 mg PO 10/12/18 Metoclopramide HCl [Reglan] 5 mg PO TID 10/12/18 Oxycodone [Oxyfast] 30 mg PO Q4H PRN 10/12/18 Pregabalin [Lyrica] 50 mg PO BID 10/12/18 Sitagliptin Phosphate [Januvia] 100 mg PO 10/12/18 traZODone [Desyrel] 50 mg PO QHS 10/12/18 Meloxicam 7.5 mg PO BID PRN 05/17/19 Methenamine Hippurate [Hiprex] 1 gm PO BID 05/17/19 Maternal Family History: No pertinent history Smoking Status: Former smoker Physical Exam Vital Signs Temp Pulse Resp BP 97.5 F L 93 18 102/73 11/15/19 10:02 11/15/19 10:02 11/15/19 10:02 11/15/19 10:02 Assessment/Plan Chronic decubitus ulcer stage IV with osteomyelitis of thigh buttocks and sacrum Treatment Course Number Treatment Course Number 1 Treatment # 39 HBO Diagnosis/Indication Diagnosis/Indication(s) for Standard/Conservative Hyperbaric Therapy Diabetes - Detail Diabetes Diabetes Type II Other - Detail Chronic Refractory Yes Osteomyelitis (specify site in comment)
[2019-11-21 17:36] VITALS: BP 103/69; BP 107/68; PULSE 78; PULSE 90; RESP 16; RESP 18; TEMP 36.4; TEMP 36.9
[2019-11-22 08:10] LABS: Bedside Glucose 167 mg/dL (70-110)
[2019-11-22 08:10] LABS: Bedside Glucose 241 mg/dL (70-110)
[2019-11-22 10:56] LABS: Bedside Glucose 224 mg/dL (70-110)
[2019-11-22 12:36] LABS: Bedside Glucose 297 mg/dL (70-110)
[2019-11-22 12:36] LABS: Bedside Glucose 186 mg/dL (70-110)
[2019-11-22 13:21] LABS: Bedside Glucose 147 mg/dL (70-110)
[2019-11-22 17:26] VITALS: BP 126/79; BP 127/54; PULSE 73; PULSE 91; RESP 18; TEMP 36.4; TEMP 36.8
[2019-11-26 11:05] LABS: Bedside Glucose 206 mg/dL (70-110)
[2019-11-26 12:17] VITALS: BP 122/70; BP 96/63; PULSE 70; PULSE 77; RESP 16; TEMP 36.1; TEMP 36.4
[2019-11-26 13:00] LABS: Bedside Glucose 168 mg/dL (70-110)
--- NOTE | 2019-11-26 13:18 | PCM.HBO.PN ---
History of Present Illness Date of Service: 11/26/19 Presenting Chief Complaint: Non healing, chronic decubitus pressure ulcers, stage IV, with osteomyelitis - thigh, buttock, sacrum. GABBI CARBAJAL is a 34 year old currently undergoing hyperbaric oxygen therapy for osteomyelitis Progress:this is his 42nd treatment and is receiving KRISTEN 2.0 90 min per treatment with no air breaks Tolerance of hyperbaric oxygen therapy:vital signs stable before and after treatment. Pre-treatment blood glucose was 206 and post-treatment blood glucose was 168. Past Medical History Chronic Problems (Last Updated 10/26/19 @ 15:[address] Meena Coyne, DO) Chronic osteomyelitis involving pelvic region and thigh (Chronic) Sacral decubitus ulcer, stage IV (Chronic) Decubitus ulcer of right buttock, stage 4 (Chronic) Decubitus ulcer of left buttock, stage 4 (Chronic) Chronic osteomyelitis involving pelvic region and thigh (Chronic) Paraplegia (Chronic) Allergies/Adverse Reactions: Allergies lidocaine Allergy (Verified 09/03/19 13:05) Unknown Home Medications: Ambulatory Orders Medication Instructions Recorded Sitagliptin Phosphate [Januvia] 100 mg PO DAILY 10/11/17 Baclofen 5 mg PO BID 10/12/18 Diazepam [Valium] 5 mg PO BID 10/12/18 Fentanyl 200 ea TD 10/12/18 Ferrous Sulfate 325 mg PO 10/12/18 Insulin Glargine,Hum.rec.anlog 10 unit SQ 10/12/18 [Lantus Solostar] Insulin Lispro [Humalog KwikPen] unit SQ 10/12/18 Magnesium Oxide [Magnesium] 400 mg PO BID 10/12/18 Melatonin 3 mg PO 10/12/18 Metoclopramide HCl [Reglan] 5 mg PO TID 10/12/18 Oxycodone [Oxyfast] 30 mg PO Q4H PRN 10/12/18 Pregabalin [Lyrica] 50 mg PO BID 10/12/18 Sitagliptin Phosphate [Januvia] 100 mg PO 10/12/18 traZODone [Desyrel] 50 mg PO QHS 10/12/18 Meloxicam 7.5 mg PO BID PRN 05/17/19 Methenamine Hippurate [Hiprex] 1 gm PO BID 05/17/19 Maternal Family History: No pertinent history Smoking Status: Former smoker Physical Exam Vital Signs Temp Pulse Resp BP 97.0 F L 70 16 122/70 H 11/26/19 12:17 11/26/19 12:17 11/26/19 12:17 11/26/19 12:17 Assessment/Plan Treatment Course Number Number of HBO Treatments 42 Ordered Treatment Course Number 1 Treatment # 60 Chamber # [id number] Chamber Type Monoplace HBO Diagnosis/Indication Diagnosis/Indication(s) for Standard/Conservative Hyperbaric Therapy Diabetes - Detail Diabetes Diabetes Type II Other - Detail Chronic Refractory Yes Osteomyelitis (specify site in comment) Compromised/Failed Flap/Graft Yes (specify site in comment) Treatment Plan KRISTEN (Atmospheric Absolute) 2 Number of Minutes 90 Number of Air Breaks 0 Hyperbaric Charges CPT - 80435 ICD-10 - M86.659, L89.154, L89.314, L89.324
[2019-11-28 11:06] LABS: Bedside Glucose 224 mg/dL (70-110)
--- NOTE | 2019-11-28 12:31 | PCM.HBO.PN ---
History of Present Illness Date of Service: 11/28/19 Presenting Chief Complaint: Non healing, chronic decubitus pressure ulcers, stage IV, with osteomyelitis - thigh, buttock, sacrum. GABBI CARBAJAL is a 34 year old currently undergoing hyperbaric oxygen therapy for osteomyelitis Progress:this is his 42nd treatment and is receiving KRISTEN 2.0 90 min per treatment with no air breaks Tolerance of hyperbaric oxygen therapy:vital signs stable before and after treatment. Pre-treatment blood glucose was 206 and post-treatment blood glucose was 168. Past Medical History Chronic Problems (Last Updated 10/26/19 @ 15:[address] Meena Coyne, DO) Chronic osteomyelitis involving pelvic region and thigh (Chronic) Sacral decubitus ulcer, stage IV (Chronic) Decubitus ulcer of right buttock, stage 4 (Chronic) Decubitus ulcer of left buttock, stage 4 (Chronic) Chronic osteomyelitis involving pelvic region and thigh (Chronic) Paraplegia (Chronic) Allergies/Adverse Reactions: Allergies lidocaine Allergy (Verified 09/03/19 13:05) Unknown Home Medications: Ambulatory Orders Medication Instructions Recorded Sitagliptin Phosphate [Januvia] 100 mg PO DAILY 10/11/17 Baclofen 5 mg PO BID 10/12/18 Diazepam [Valium] 5 mg PO BID 10/12/18 Fentanyl 200 ea TD 10/12/18 Ferrous Sulfate 325 mg PO 10/12/18 Insulin Glargine,Hum.rec.anlog 10 unit SQ 10/12/18 [Lantus Solostar] Insulin Lispro [Humalog KwikPen] unit SQ 10/12/18 Magnesium Oxide [Magnesium] 400 mg PO BID 10/12/18 Melatonin 3 mg PO 10/12/18 Metoclopramide HCl [Reglan] 5 mg PO TID 10/12/18 Oxycodone [Oxyfast] 30 mg PO Q4H PRN 10/12/18 Pregabalin [Lyrica] 50 mg PO BID 10/12/18 Sitagliptin Phosphate [Januvia] 100 mg PO 10/12/18 traZODone [Desyrel] 50 mg PO QHS 10/12/18 Meloxicam 7.5 mg PO BID PRN 05/17/19 Methenamine Hippurate [Hiprex] 1 gm PO BID 05/17/19 Maternal Family History: No pertinent history Smoking Status: Former smoker Physical Exam Vital Signs Temp Pulse Resp BP 97.0 F L 70 16 122/70 H 11/26/19 12:17 11/26/19 12:17 11/26/19 12:17 11/26/19 12:17 Assessment/Plan Chronic decubitus ulcer stage IV with osteomyelitis of thigh buttocks and sacrum Treatment Course Number Number of HBO Treatments 42 Ordered Treatment Course Number 1 Treatment # 60 Chamber # [id number] Chamber Type Monoplace HBO Diagnosis/Indication Diagnosis/Indication(s) for Standard/Conservative Hyperbaric Therapy Diabetes - Detail Diabetes Diabetes Type II Other - Detail Chronic Refractory Yes Osteomyelitis (specify site in comment) Compromised/Failed Flap/Graft Yes (specify site in comment) Treatment Plan KRISTEN (Atmospheric Absolute) 2 Number of Minutes 90 Number of Air Breaks 0
[2019-11-28 13:00] LABS: Bedside Glucose 150 mg/dL (70-110)
[2019-11-28 17:24] VITALS: BP 124/80; BP 142/78; PULSE 71; PULSE 78; RESP 18; TEMP 35.9; TEMP 36.8
[2019-11-29 14:45] LABS: Bedside Glucose 142 mg/dL (70-110)
[2019-11-29 15:21] VITALS: BP 144/88; BP 87/64; PULSE 75; PULSE 84; RESP 16; RESP 18; TEMP 35.9; TEMP 36
--- NOTE | 2019-11-29 16:04 | PCM.HBO.PN ---
History of Present Illness Date of Service: 11/29/19 Presenting Chief Complaint: Non healing, chronic decubitus pressure ulcers, stage IV, with osteomyelitis - thigh, buttock, sacrum. GABBI CARBAJAL is a 34 year old currently undergoing hyperbaric oxygen therapy for osteomyelitis Progress:this is his 44th treatment and is receiving KRISTEN 2.0 90 min per treatment with no air breaks Tolerance of hyperbaric oxygen therapy:vital signs stable before and after treatment. Pre-treatment blood glucose documented in the chart Past Medical History Chronic Problems (Last Updated 10/26/19 @ 15:[address] Meena Coyne, DO) Chronic osteomyelitis involving pelvic region and thigh (Chronic) Sacral decubitus ulcer, stage IV (Chronic) Decubitus ulcer of right buttock, stage 4 (Chronic) Decubitus ulcer of left buttock, stage 4 (Chronic) Chronic osteomyelitis involving pelvic region and thigh (Chronic) Paraplegia (Chronic) Allergies/Adverse Reactions: Allergies lidocaine Allergy (Verified 09/03/19 13:05) Unknown Home Medications: Ambulatory Orders Medication Instructions Recorded Sitagliptin Phosphate [Januvia] 100 mg PO DAILY 10/11/17 Baclofen 5 mg PO BID 10/12/18 Diazepam [Valium] 5 mg PO BID 10/12/18 Fentanyl 200 ea TD 10/12/18 Ferrous Sulfate 325 mg PO 10/12/18 Insulin Glargine,Hum.rec.anlog 10 unit SQ 10/12/18 [Lantus Solostar] Insulin Lispro [Humalog KwikPen] unit SQ 10/12/18 Magnesium Oxide [Magnesium] 400 mg PO BID 10/12/18 Melatonin 3 mg PO 10/12/18 Metoclopramide HCl [Reglan] 5 mg PO TID 10/12/18 Oxycodone [Oxyfast] 30 mg PO Q4H PRN 10/12/18 Pregabalin [Lyrica] 50 mg PO BID 10/12/18 Sitagliptin Phosphate [Januvia] 100 mg PO 10/12/18 traZODone [Desyrel] 50 mg PO QHS 10/12/18 Meloxicam 7.5 mg PO BID PRN 05/17/19 Methenamine Hippurate [Hiprex] 1 gm PO BID 05/17/19 Maternal Family History: No pertinent history Smoking Status: Former smoker Physical Exam Vital Signs Temp Pulse Resp BP 96.8 F L 84 18 87/64 L 11/29/19 15:21 11/29/19 15:21 11/29/19 15:21 11/29/19 15:21 General: Alert, Oriented x3, Cooperative, No apparent distress HEENT: Atraumatic, PERRLA, Normocephalic, TM's Clear, - - Bilateral tympanostomy tubes Lungs: Clear to auscultation, Normal air movement, No rhonchi, No wheeze, No rales Cardiovascular: Regular rate, Regular Rhythm, Normal S1, Normal S2 Psych/Mental Status: Normal Affect, Appropriate, Alert and oriented to time, place, person, mood and affect Assessment/Plan Chronic decubitus ulcer stage IV with osteomyelitis of thigh buttocks and sacrum Treatment Course Number Number of HBO Treatments 60 Ordered Treatment Course Number 1 Treatment # 44 Chamber # [id number] Chamber Type Monoplace HBO Diagnosis/Indication Diagnosis/Indication(s) for Standard/Conservative Hyperbaric Therapy Diabetes - Detail Diabetes Diabetes Type II Other - Detail Chronic Refractory Yes Osteomyelitis (specify site in comment) Compromised/Failed Flap/Graft Yes (specify site in comment) Treatment Plan KRISTEN (Atmospheric Absolute) 2 Number of Minutes 90 Number of Air Breaks 0 The patient appears to be tolerating hyperbaric oxygen therapy well, which will be continued as per the patient's medical plan.
[2019-11-29 16:55] LABS: Bedside Glucose 129 mg/dL (70-110)
[2019-11-30 10:45] LABS: Bedside Glucose 153 mg/dL (70-110)
[2019-11-30 13:06] LABS: Bedside Glucose 144 mg/dL (70-110)
[2019-11-30 13:25] VITALS: BP 114/42; BP 97/64; PULSE 70; PULSE 81; RESP 16; TEMP 36.3; TEMP 36.9
--- NOTE | 2019-11-30 16:58 | PCM.HBO.PN ---
History of Present Illness Date of Service: 11/30/19 Presenting Chief Complaint: Non healing, chronic decubitus pressure ulcers, stage IV, with osteomyelitis - thigh, buttock, sacrum. GABBI CARBAJAL is a 34 year old currently undergoing hyperbaric oxygen therapy for osteomyelitis, Stage 4 pressure ulcer sacrum, thigh, buttock Progress: Today is the 45th treatment of hyperbaric oxygen therapy. The patient is scheduled for 60 treatments total. Tolerance of hyperbaric oxygen therapy: Hyperbaric oxygen treatment was provided as per the facility's protocol at 2.0 KRISTEN in 100% oxygen for 90 minutes without air breaks. The patient tolerated hyperbaric oxygen well, without complications or complaints. Pre and post blood sugar readings are noted in the clinical panel. Upon emergence of the hyperbaric chamber, the patient's vital signs remained stable. Past Medical History Chronic Problems (Last Updated 10/26/19 @ 15:[address] Meena Coyne, DO) Chronic osteomyelitis involving pelvic region and thigh (Chronic) Sacral decubitus ulcer, stage IV (Chronic) Decubitus ulcer of right buttock, stage 4 (Chronic) Decubitus ulcer of left buttock, stage 4 (Chronic) Chronic osteomyelitis involving pelvic region and thigh (Chronic) Paraplegia (Chronic) Allergies/Adverse Reactions: Allergies lidocaine Allergy (Verified 09/03/19 13:05) Unknown Home Medications: Ambulatory Orders Medication Instructions Recorded Sitagliptin Phosphate [Januvia] 100 mg PO DAILY 10/11/17 Baclofen 5 mg PO BID 10/12/18 Diazepam [Valium] 5 mg PO BID 10/12/18 Fentanyl 200 ea TD 10/12/18 Ferrous Sulfate 325 mg PO 10/12/18 Insulin Glargine,Hum.rec.anlog 10 unit SQ 10/12/18 [Lantus Solostar] Insulin Lispro [Humalog KwikPen] unit SQ 10/12/18 Magnesium Oxide [Magnesium] 400 mg PO BID 10/12/18 Melatonin 3 mg PO 10/12/18 Metoclopramide HCl [Reglan] 5 mg PO TID 10/12/18 Oxycodone [Oxyfast] 30 mg PO Q4H PRN 10/12/18 Pregabalin [Lyrica] 50 mg PO BID 10/12/18 Sitagliptin Phosphate [Januvia] 100 mg PO 10/12/18 traZODone [Desyrel] 50 mg PO QHS 10/12/18 Meloxicam 7.5 mg PO BID PRN 05/17/19 Methenamine Hippurate [Hiprex] 1 gm PO BID 05/17/19 Maternal Family History: No pertinent history Lives: Spouse/ Significant Other Smoking Status: Former smoker Tobacco Use: Non-smoker Alcohol: None Drugs: None Physical Exam Vital Signs Temp Pulse Resp BP 98.5 F 81 16 97/64 11/30/19 13:25 11/30/19 13:25 11/30/19 13:25 11/30/19 13:25 General: Alert, Oriented x3, Cooperative, No apparent distress Psych/Mental Status: Normal Affect, Appropriate Assessment/Plan Active Problems (Last Updated 10/26/19 @ 15:[address] Meena Coyne, DO) Sacral decubitus ulcer, stage IV (Chronic) Decubitus ulcer of right buttock, stage 4 (Chronic) Decubitus ulcer of left buttock, stage 4 (Chronic) Chronic osteomyelitis involving pelvic region and thigh (Chronic) Paraplegia (Chronic) Chronic decubitus ulcer stage IV with osteomyelitis of thigh buttocks and sacrum The patient appears to be tolerating hyperbaric oxygen therapy well, which will be continued as per his medical treatment plan. Treatment Course Number Number of HBO Treatments 60 Ordered Treatment Course Number 1 Treatment # 45 Chamber # 2 Chamber Type Monoplace HBO Diagnosis/Indication Diagnosis/Indication(s) for Standard/Conservative Hyperbaric Therapy Diabetes - Detail Diabetes Diabetes Type II Other - Detail Chronic Refractory Yes Osteomyelitis (specify site in comment) Compromised/Failed Flap/Graft Yes (specify site in comment) Treatment Plan KRISTEN (Atmospheric Absolute) 2 Number of Minutes 90 Number of Air Breaks 0
[2019-12-03 10:46] LABS: Bedside Glucose 176 mg/dL (70-110)
--- NOTE | 2019-12-03 11:09 | PCM.HBO.PN ---
History of Present Illness Date of Service: 12/03/19 Presenting Chief Complaint: Non healing, chronic decubitus pressure ulcers, stage IV, with osteomyelitis - thigh, buttock, sacrum. GABBI CARBAJAL is a 34 year old currently undergoing hyperbaric oxygen therapy for osteomyelitis, Stage 4 pressure ulcer sacrum, thigh, and buttock. Progress: Today is the 46th treatment of hyperbaric oxygen therapy. The patient is scheduled for 60 treatments total. Tolerance of hyperbaric oxygen therapy: Hyperbaric oxygen treatment was provided as per the facility's protocol at 2.0 KRISTEN in 100% oxygen for 90 minutes without air breaks. The patient tolerated hyperbaric oxygen well, without complications or complaints. Pre and post blood sugar readings are noted in the clinical panel. Upon emergence of the hyperbaric chamber, the patient's vital signs remained stable. Past Medical History Chronic Problems (Last Updated 11/30/19 @ 17:[address] Meena Coyne, DO) Chronic osteomyelitis involving pelvic region and thigh (Chronic) Sacral decubitus ulcer, stage IV (Chronic) Decubitus ulcer of right buttock, stage 4 (Chronic) Decubitus ulcer of left buttock, stage 4 (Chronic) Chronic osteomyelitis involving pelvic region and thigh (Chronic) Paraplegia (Chronic) Allergies/Adverse Reactions: Allergies lidocaine Allergy (Verified 09/03/19 13:05) Unknown Home Medications: Ambulatory Orders Medication Instructions Recorded Sitagliptin Phosphate [Januvia] 100 mg PO DAILY 10/11/17 Baclofen 5 mg PO BID 10/12/18 Diazepam [Valium] 5 mg PO BID 10/12/18 Fentanyl 200 ea TD 10/12/18 Ferrous Sulfate 325 mg PO 10/12/18 Insulin Glargine,Hum.rec.anlog 10 unit SQ 10/12/18 [Lantus Solostar] Insulin Lispro [Humalog KwikPen] unit SQ 10/12/18 Magnesium Oxide [Magnesium] 400 mg PO BID 10/12/18 Melatonin 3 mg PO 10/12/18 Metoclopramide HCl [Reglan] 5 mg PO TID 10/12/18 Oxycodone [Oxyfast] 30 mg PO Q4H PRN 10/12/18 Pregabalin [Lyrica] 50 mg PO BID 10/12/18 Sitagliptin Phosphate [Januvia] 100 mg PO 10/12/18 traZODone [Desyrel] 50 mg PO QHS 10/12/18 Meloxicam 7.5 mg PO BID PRN 05/17/19 Methenamine Hippurate [Hiprex] 1 gm PO BID 05/17/19 Maternal Family History: No pertinent history Lives: Spouse/ Significant Other Smoking Status: Former smoker Tobacco Use: Non-smoker Alcohol: None Drugs: None Physical Exam Vital Signs Temp Pulse Resp BP 98.5 F 81 16 97/64 11/30/19 13:25 11/30/19 13:25 11/30/19 13:25 11/30/19 13:25 General: Alert, Oriented x3, Cooperative, No apparent distress HEENT: Atraumatic, TM's Clear Lungs: Clear to auscultation, Normal air movement Cardiovascular: Regular rate, Regular Rhythm Psych/Mental Status: Normal Affect, Appropriate, Alert and oriented to time, place, person, mood and affect Assessment/Plan Treatment Course Number Number of HBO Treatments 60 Ordered Treatment Course Number 1 Treatment # 46 Chamber # 2 Chamber Type Monoplace HBO Diagnosis/Indication Diagnosis/Indication(s) for Standard/Conservative Hyperbaric Therapy Diabetes - Detail Diabetes Diabetes Type II Other - Detail Chronic Refractory Yes Osteomyelitis (specify site in comment) Compromised/Failed Flap/Graft Yes (specify site in comment) Treatment Plan KRISTEN (Atmospheric Absolute) 2 Number of Minutes 90 Number of Air Breaks 0
[2019-12-03 11:22] VITALS: BP 106/67; BP 130/86; PULSE 87; PULSE 91; RESP 16; TEMP 36.4; TEMP 36.7
[2019-12-03 13:01] LABS: Bedside Glucose 102 mg/dL (70-110)
[2019-12-05 11:30] VITALS: BP 96/52; PULSE 90; RESP 18; TEMP 36.2
[2019-12-05 20:01] LABS: Bedside Glucose 112 mg/dL (70-110)
[2019-12-05 20:01] LABS: Bedside Glucose 119 mg/dL (70-110)
[2019-12-05 20:01] LABS: Bedside Glucose 115 mg/dL (70-110)
[2019-12-06 10:06] VITALS: BP 131/47; PULSE 79; RESP 18; TEMP 35.9; BMI 21.8
[2019-12-06 10:46] VITALS: BP 130/47; PULSE 60; RESP 18
[2019-12-06 10:50] LABS: Bedside Glucose 167 mg/dL (70-110)
--- NOTE | 2019-12-06 11:47 | PN.PCM_ITS ---
(1) Decubitus ulcer of left buttock, stage 4 Status: Chronic Current Visit: Yes Code(s): L89.324 - Pressure ulcer of left buttock, stage 4 (2) Decubitus ulcer of right buttock, stage 4 Status: Chronic Current Visit: Yes Code(s): L89.314 - Pressure ulcer of right buttock, stage 4 (3) Sacral decubitus ulcer, stage IV Status: Acute Current Visit: Yes Code(s): L89.154 - Pressure ulcer of sacral region, stage 4 (4) Chronic osteomyelitis involving pelvic region and thigh Status: Chronic Current Visit: Yes Code(s): M86.659 - Other chronic osteomyelitis, unspecified thigh (5) Paraplegia Status: Chronic Current Visit: Yes Code(s): G82.20 - Paraplegia, unspecified Type of Wound Date of Service: 12/06/19 Chief Complaint: Non healing, chronic decubitus pressure ulcers, stage IV, with osteomyelitis - thigh, buttock, sacrum. History of Wound: Mr. Joyce is a 33yo well known to the wound center but was last seen here over a month ago. Initial sacral ulcer was said to have started in November and Buttock ulcers were noted subsequently. He has had an extensive hospital stay over the last couple of months following a work related injury. Both during his hopsital and halfway stays, he had wound care ranging from surgical debridement, wound vac and collagen use. He was scheduled to be restarted on his wound Vac prior to his discharge from the [facility]. He reports significant drainage from the wounds. Also of note is a history of osteomyelitis for which he was on a 6 week IV antibiotic. His however states they were informed that he had developed chronic extensive pelvic area osteomyelitis. He feels well otherwise at this time and denies chills, fever,nausea, vomitting or change in bowel habit. 02/22/2019: Above, he was last seen here over a month ago. Had an extensive hospital stay [facility] due to complications from prior neck surgery. They state that his ulcers have been stable. Been doing the acetic acid soak for 10 minutes and then calcium alginate/collagen dressings. Is any concerns at this time. Progress of Wound: No new concerns at this time. Slowly improving. - Physical Exam Vital Signs Temp Pulse Resp BP 96.7 F L 60 18 130/47 H 12/06/19 10:06 12/06/19 10:46 12/06/19 10:46 12/06/19 10:46 General: Alert, Oriented x3, Cooperative, No apparent distress HEENT: Atraumatic, Normocephalic Oral: Moist Mucosa Neck: Supple Lungs: Normal air movement Extremities: No cyanosis Skin: Ulcer/ Wound Wound Measurements and Assessment WC - Nurse 1 - General Ulcer Measurement Start: 11/15/19 10:02 Freq: Status: Active Protocol: Activity Type Activity Date Activity User E-Sign Co-Sign Detail Recorded Client Recorded Date Recorded By Document 12/06/19 10:06 IA [id number] 12/06/19 10:12 IA 12/06/19 10:06 Wound Center Nurse 1 [Ulcer Assessment] #7 Sacral -Current Size (cm) - Length 6 -Current Size (cm) - Width 12 -Current Size (cm) - Depth 0.3 -Total Square Cm 72 -Undermining/Tunneling Yes -Undermining/Tunneling Starts (O' 10 clock) -Undermining/Tunneling Ends (O'clock) 11 -Maximum Distance (cm) 5.3 -Undermining/Tunneling Starts #2 (O' 1 clock) -Undermining/Tunneling Ends #2 (O' 3 clock) -Maximum Distance #2 (cm) 3.2 -Exudate Amt Medium -Exudate Type Purulent -Wound Margin Thickened -Granulation Amt Medium (34-66%) -Granulation Quality Pale,[place] -Necrosis Amt Medium (34-66%) -Necrotic Tissue Type Adherent Slough -Texture (Sheyla-wound Skin Appearance) Assessed -Moisture (Sheyla-wound Skin Appearance Assessed ) -Color (Sheyla-wound Skin Appearance) Assessed -Temperature (Sheyla-wound Skin No Abnormality Appearance) (Pt Warm) -Tenderness on Palpation (Sheyla-wound No Skin Appearance) -Ulcer Cleansing Rinsed/ Irrigated with Saline -Foul Odor after Cleansing No #6 R Buttocks -Current Size (cm) - Length 9.5 -Current Size (cm) - Width 5.0 -Current Size (cm) - Depth 0.8 -Total Square Cm 47.50 -Exudate Amt Small -Exudate Type Serosanguineous -Wound Margin Thickened -Granulation Amt Medium (34-66%) -Granulation Quality Pale,[place] -Necrosis Amt Medium (34-66%) -Necrotic Tissue Type Adherent Slough -Texture (Sheyla-wound Skin Appearance) Assessed -Moisture (Sheyla-wound Skin Appearance Assessed ) -Color (Sheyla-wound Skin Appearance) Assessed -Temperature (Sheyla-wound Skin No Abnormality Appearance) (Pt Warm) -Tenderness on Palpation (Sheyla-wound No Skin Appearance) -Ulcer Cleansing Rinsed/ Irrigated with Saline -Foul Odor after Cleansing No #5 L Buttocks -Current Size (cm) - Length 8.7 -Current Size (cm) - Width 5.1 -Current Size (cm) - Depth 2.0 -Total Square Cm 44.37 -Tunneling Distance (cm) 3.7 -Exudate Amt Small -Exudate Type Serosanguineous -Wound Margin Thickened -Granulation Amt Medium (34-66%) -Granulation Quality Pale,[place] -Necrosis Amt Medium (34-66%) -Necrotic Tissue Type Adherent Slough -Texture (Sheyla-wound Skin Appearance) Assessed -Moisture (Sheyla-wound Skin Appearance Assessed ) -Color (Sheyla-wound Skin Appearance) Assessed -Temperature (Sheyla-wound Skin No Abnormality Appearance) (Pt Warm) -Tenderness on Palpation (Sheyla-wound No Skin Appearance) -Ulcer Cleansing Wound Cleanser -Foul Odor after Cleansing No [Edema Assessment] -Lower Limb Edema Present NA WC - Nurse 2 - General Ulcer CM Notes Start: 11/15/19 10:02 Freq: Status: Active Protocol: Activity Type Activity Date Activity User E-Sign Co-Sign Detail Recorded Client Recorded Date Recorded By Document 12/06/19 10:35 MW [id number] 12/06/19 10:39 MW 12/06/19 10:35 Wound Center Nurse 2 [Procedure/Treatment] #7 Sacral -Time 10:35 -Correct Patient Yes -Correct Side, Site, Position Yes -Correct Procedure Yes -Procedure Performed Yes -Type of Procedure Debridement -Clinical Debridement Subcutaneous -Tissue Removed Subcutaneous -Post Debridement (cm) - Length 5.5 -Post Debridement (cm) - Width 13.0 -Post Debridement (cm) - Depth 1.3 -Total Square (Post) (cm) 71.50 -Area of Debridement (cm) - Length 5.5 -Area of Debridement (cm) - Width 13.0 -Total Square (Area) (cm) 71.50 -Tunneling No -Undermining/Tunneling No -Circular Undermining No -Wound/Ulcer Outcome Not Healed -Ulcer Cleansing Rinsed/ Irrigated with Saline -Foul Odor after Cleansing No -Bioengineered Tissue No -Bleeding Controlled with Pressure -Offloading No -Treatment Response Procedure Tolerated Well -Debridement - Subq, 1st 20sq cm Yes -Debridement, SubQ, ea addt'l 20sq cm 7 or part thereof #6 R Buttocks -Time 10:35 -Correct Patient Yes -Correct Side, Site, Position Yes -Correct Procedure Yes -Procedure Performed Yes -Type of Procedure Debridement -Clinical Debridement Subcutaneous -Tissue Removed Subcutaneous -Post Debridement (cm) - Length 7.5 -Post Debridement (cm) - Width 4.0 -Post Debridement (cm) - Depth 1.3 -Total Square (Post) (cm) 30.00 -Area of Debridement (cm) - Length 7.5 -Area of Debridement (cm) - Width 4.0 -Total Square (Area) (cm) 30.00 -Tunneling No -Undermining/Tunneling No -Circular Undermining No -Wound/Ulcer Outcome Not Healed -Ulcer Cleansing Rinsed/ Irrigated with Saline -Foul Odor after Cleansing No -Bioengineered Tissue No -Bleeding Controlled with Pressure -Offloading No -Debridement - Subq, 1st 20sq cm No #5 L Buttocks -Time 10:35 -Correct Patient Yes -Correct Side, Site, Position Yes -Correct Procedure Yes -Procedure Performed Yes -Type of Procedure Debridement -Clinical Debridement Subcutaneous -Tissue Removed Subcutaneous -Post Debridement (cm) - Length 8.0 -Post Debridement (cm) - Width 6.0 -Post Debridement (cm) - Depth 2.0 -Total Square (Post) (cm) 48.00 -Area of Debridement (cm) - Length 8.0 -Area of Debridement (cm) - Width 6.0 -Total Square (Area) (cm) 48.00 -Tunneling No -Undermining/Tunneling No -Circular Undermining No -Wound/Ulcer Outcome Not Healed -Ulcer Cleansing Rinsed/ Irrigated with Saline -Foul Odor after Cleansing No -Bioengineered Tissue No -Bleeding Controlled with Pressure -Offloading No -Debridement - Subq, 1st 20sq cm No [See Physician Procedure note for Specifics] Pain Scale: 0-10 Numeric [Pain] -Is Patient Pain Free? Yes WC - Nurse 3 - General Ulcer D/C NN Start: 11/15/19 10:02 Freq: Status: Active Protocol: Activity Type Activity Date Activity User E-Sign Co-Sign Detail Recorded Client Recorded Date Recorded By Document 12/06/19 10:46 RB [id number] 12/06/19 10:49 RB 12/06/19 10:46 Wound Care Nurse 3 [Wound Dressing] #7 Sacral -Other Dressing collagen,calium alginate, mepilex per family #6 R Buttocks -Other Dressing collagen,calium alginate ,abd -Primary Dressing Covered/Secured Secured with with Tape #5 L Buttocks -Other Dressing collagen, calicium alginate, abd -Primary Dressing Covered/Secured Secured with with Tape Vital Signs [Pulse] -Pulse Rate (60-100 beats/min) 60 -Pulse Location Monitor [Respirations] -Respiratory Rate (12-18 breaths/min) 18 -Respiratory rate source Observation [Blood Pressure] -Blood Pressure (90/60-120/80 mm Hg) 130/47 H -Blood Pressure Mean (mm Hg) 74 -Source Monitor -Position Supine -Blood Pressure Location Left Arm Pain Scale: 0-10 Numeric [Pain] -Is Patient Pain Free? Yes - Visit Discharge [Visit Discharge Information] -Discharge Condition Stable -Ambulatory Status Stretcher -Transportation Private Auto -Medication Reconcilliation completed No & provided to patient/care provider -Clinical Summary of Care Provided Yes Musculoskeletal: No Muscle Wasting Neurological: Cranial nerves II-XII grossly intact Debridement Note Post-Debridement Measurements/Treatment - Nurse 2 - General Ulcer CM Notes Start: 11/15/19 10:02 Freq: Status: Active Protocol: Activity Type Activity Date Activity User E-Sign Co-Sign Detail Recorded Client Recorded Date Recorded By Document 11/15/19 12:11 MW [id number] 12/05/19 13:39 MW Document 12/06/19 10:35 MW [id number] 12/06/19 10:39 MW 11/15/19 12/06/19 12:11 10:35 Wound Center Nurse 2 #7 Sacral -Time 12:11 10:35 -Correct Patient Yes Yes -Correct Side, Site, Position Yes Yes -Correct Procedure Yes Yes -Procedure Performed Yes Yes -Type of Procedure Debridement Debridement -Clinical Debridement Subcutaneous Subcutaneous -Tissue Removed Subcutaneous Subcutaneous -Post Debridement (cm) - Length 6.5 5.5 -Post Debridement (cm) - Width 13.5 13.0 -Post Debridement (cm) - Depth 1.5 1.3 -Total Square (Post) (cm) 87.75 71.50 -Area of Debridement (cm) - Length 6.5 5.5 -Area of Debridement (cm) - Width 13.5 13.0 -Total Square (Area) (cm) 87.75 71.50 -Tunneling No No -Undermining/Tunneling No No -Circular Undermining No No -Wound/Ulcer Outcome Not Healed Not Healed -Ulcer Cleansing Rinsed/ Rinsed/ Irrigated with Irrigated with Saline Saline -Foul Odor after Cleansing No No -Bioengineered Tissue No No -Bleeding Controlled with Pressure Pressure -Offloading No No -Treatment Response Procedure Procedure Tolerated Well Tolerated Well -Debridement - Subq, 1st 20sq cm Yes Yes -Debridement, SubQ, ea addt'l 20sq cm 8 7 or part thereof #6 R Buttocks -Time 12:11 10:35 -Correct Patient Yes Yes -Correct Side, Site, Position Yes Yes -Correct Procedure Yes Yes -Procedure Performed Yes Yes -Type of Procedure Debridement Debridement -Clinical Debridement Subcutaneous Subcutaneous -Tissue Removed Subcutaneous Subcutaneous -Post Debridement (cm) - Length 7.5 7.5 -Post Debridement (cm) - Width 5.0 4.0 -Post Debridement (cm) - Depth 1.2 1.3 -Total Square (Post) (cm) 37.50 30.00 -Area of Debridement (cm) - Length 7.5 7.5 -Area of Debridement (cm) - Width 5.0 4.0 -Total Square (Area) (cm) 37.50 30.00 -Tunneling No No -Undermining/Tunneling No No -Circular Undermining No No -Wound/Ulcer Outcome Not Healed Not Healed -Ulcer Cleansing Rinsed/ Rinsed/ Irrigated with Irrigated with Saline Saline -Foul Odor after Cleansing No No -Bioengineered Tissue No No -Bleeding Controlled with Pressure Pressure -Offloading No No -Treatment Response Procedure Tolerated Well -Debridement - Subq, 1st 20sq cm No No #5 L Buttocks -Time 12:14 10:35 -Correct Patient Yes Yes -Correct Side, Site, Position Yes Yes -Correct Procedure Yes Yes -Procedure Performed Yes Yes -Type of Procedure Incision & Debridement Drainage -Clinical Debridement Subcutaneous Subcutaneous -Tissue Removed Subcutaneous Subcutaneous -Post Debridement (cm) - Length 7.3 8.0 -Post Debridement (cm) - Width 6.5 6.0 -Post Debridement (cm) - Depth 2.0 2.0 -Total Square (Post) (cm) 47.45 48.00 -Area of Debridement (cm) - Length 7.3 8.0 -Area of Debridement (cm) - Width 6.5 6.0 -Total Square (Area) (cm) 47.45 48.00 -Tunneling No No -Undermining/Tunneling No No -Circular Undermining No No -Wound/Ulcer Outcome Not Healed Not Healed -Ulcer Cleansing Rinsed/ Rinsed/ Irrigated with Irrigated with Saline Saline -Foul Odor after Cleansing No No -Bioengineered Tissue No No -Bleeding Controlled with Pressure Pressure -Offloading No No -Treatment Response Procedure Tolerated Well -Debridement - Subq, 1st 20sq cm No No Pain Scale: 0-10 Numeric Is Patient Pain Free? Yes Yes - Nurse 3 - General Ulcer D/C NN Start: 11/15/19 10:02 Freq: Status: Active Protocol: Activity Type Activity Date Activity User E-Sign Co-Sign Detail Recorded Client Recorded Date Recorded By Document 11/16/19 12:38 [id number] 12/05/19 16:57 Document 11/30/19 13:25 [id number] 11/30/19 13:27 Document 12/06/19 10:46 RB [id number] 12/06/19 10:49 RB 11/16/19 11/30/19 12/06/19 12:38 13:25 10:46 Wound Care Nurse 3 #7 Sacral -Other Dressing collagen,calium alginate, mepilex per family #6 R Buttocks -Other Dressing collagen,calium alginate ,abd -Primary Dressing Covered/Secured with Secured with Tape #5 L Buttocks -Other Dressing collagen, calicium alginate, abd -Primary Dressing Covered/Secured with Secured with Tape Vital Signs Pulse Rate (60-100 beats/min) 60 Pulse Location Monitor Respiratory Rate (12-18 breaths/min) 18 Respiratory rate source Observation Blood Pressure (90/60-120/80 mm Hg) 130/47 H Blood Pressure Mean (mm Hg) 74 Source Monitor Position Supine Blood Pressure Location Left Arm Pain Scale: 0-10 Numeric Is Patient Pain Free? Yes Yes - Visit Discharge Discharge Condition Stable Stable Stable Ambulatory Status Wheelchair Wheelchair Stretcher Transportation Private Auto Private Auto Private Auto Accompanied by Carmen Morales Medication Reconcilliation completed & Yes No No provided to patient/care provider Clinical Summary of Care Provided Yes No Yes Wound debrided: Sacral Wound Grade/Stage: Stage IV Type of Debridement: Excisional debridement Anesthesia Used: 4% Lidocaine Solution Depth: Down to and including healthy tissue, in the subcutaneous layer Instrument Used: 7mm curette Tissue Removed: Slough and devitalized tissue Severity: Fat Layer Exposed Amount of bleeding with debridement: Mild Bleeding Controlled with: Pressure Patient tolerated procedure well - Additional Wound Wound debrided: Left buttock Wound Grade/Stage: Stage IV Type of Debridement: Excisional debridement Anesthesia Used: 4% Lidocaine Solution Depth: Down to and including healthy tissue, in the subcutaneous layer Percentage of wound debrided: 100 Instrument Used: 7mm curette Tissue Removed: Slough and devitalized tissue Severity: Fat Layer Exposed Amount of bleeding with debridement: Mild Bleeding Controlled with: Pressure Patient tolerated procedure: Patient tolerated procedure well - Additional Wound Wound debrided: Right buttock Wound Grade/Stage: Stage IV Type of Debridement: Excisional debridement Anesthesia Used: 4% Lidocaine Solution Depth: Down to and including healthy tissue, in the subcutaneous layer Percentage of wound debrided: 100 Instrument Used: 7mm curette Tissue Removed: Slough and devitalized tissue Severity: Fat Layer Exposed Amount of bleeding with debridement: Mild Patient tolerated procedure: Patient tolerated procedure well Assessment/Plan Active Problems (Last Updated 11/30/19 @ 17:[address] Meena Coyne, DO) Sacral decubitus ulcer, stage IV (Acute) Decubitus ulcer of right buttock, stage 4 (Chronic) Decubitus ulcer of left buttock, stage 4 (Chronic) Paraplegia (Chronic) Chronic osteomyelitis involving pelvic region and thigh (Chronic) Assessment: Same as above. Plan: Stable ulcers. Debridement done as documented above, procedure well- tolerated. Continue 10 minute Acetic acid soak to all ulcers then calcium alginate/collagen dressing. Change daily to twice daily depending on drainage. Continue optimal dietary and protein intake. Offloading also recommended. His questions were answered and they were advised to call with any further questions or concerns. Follow up in 1 week. This note was generated with [employer] software. It may contain incorrect words, spelling, and punctuation that were not noted in checking the note before signing. [id number]: [id number] Oxana subq tissue 20 sq cm/< Add On Codes: [id number] Oxana subq tissue add-on - Additional square centimeter debrided, please refer to clinical note.
[2019-12-06 11:54] VITALS: BP 119/58; BP 130/47; PULSE 70; RESP 16; TEMP 35.9
--- NOTE | 2019-12-06 12:09 | PCM.HBO.PN ---
History of Present Illness Date of Service: 12/06/19 Presenting Chief Complaint: Non healing, chronic decubitus pressure ulcers, stage IV, with osteomyelitis - thigh, buttock, sacrum. GABBI CARBAJAL is a 34 year old currently undergoing hyperbaric oxygen therapy for osteomyelitis, Stage 4 pressure ulcer sacrum, thigh, and buttock. Progress: Today is the 48th treatment of hyperbaric oxygen therapy. Tolerance of hyperbaric oxygen therapy: Hyperbaric oxygen treatment was provided as per the facility's protocol at 2.0 KRISTEN in 100% oxygen for 90 minutes without air breaks. The patient tolerated hyperbaric oxygen well, without complications or complaints. Pre and post blood sugar readings are noted in the clinical panel. Upon emergence of the hyperbaric chamber, the patient's vital signs remained stable. Past Medical History Chronic Problems (Last Updated 11/30/19 @ 17:[address] Meena Coyne DO) Decubitus ulcer of right buttock, stage 4 (Chronic) Decubitus ulcer of left buttock, stage 4 (Chronic) Chronic osteomyelitis involving pelvic region and thigh (Chronic) Paraplegia (Chronic) Sacral decubitus ulcer, stage IV (Chronic) Decubitus ulcer of right buttock, stage 4 (Chronic) Decubitus ulcer of left buttock, stage 4 (Chronic) Chronic osteomyelitis involving pelvic region and thigh (Chronic) Paraplegia (Chronic) Allergies/Adverse Reactions: Allergies lidocaine Allergy (Verified 09/03/19 13:05) Unknown Home Medications: Ambulatory Orders Medication Instructions Recorded Sitagliptin Phosphate [Januvia] 100 mg PO DAILY 10/11/17 Baclofen 5 mg PO BID 10/12/18 Diazepam [Valium] 5 mg PO BID 10/12/18 Fentanyl 200 ea TD 10/12/18 Ferrous Sulfate 325 mg PO 10/12/18 Insulin Glargine,Hum.rec.anlog 10 unit SQ 10/12/18 [Lantus Solostar] Insulin Lispro [Humalog KwikPen] unit SQ 10/12/18 Magnesium Oxide [Magnesium] 400 mg PO BID 10/12/18 Melatonin 3 mg PO 10/12/18 Metoclopramide HCl [Reglan] 5 mg PO TID 10/12/18 Oxycodone [Oxyfast] 30 mg PO Q4H PRN 10/12/18 Pregabalin [Lyrica] 50 mg PO BID 10/12/18 Sitagliptin Phosphate [Januvia] 100 mg PO 10/12/18 traZODone [Desyrel] 50 mg PO QHS 10/12/18 Meloxicam 7.5 mg PO BID PRN 05/17/19 Methenamine Hippurate [Hiprex] 1 gm PO BID 05/17/19 Maternal Family History: No pertinent history Lives: Spouse/ Significant Other Smoking Status: Former smoker Tobacco Use: Non-smoker Alcohol: None Drugs: None Physical Exam Vital Signs Temp Pulse Resp BP 96.7 F L 60 18 130/47 H 12/06/19 10:06 12/06/19 10:46 12/06/19 10:46 12/06/19 10:46 General: Alert, Oriented x3, Cooperative, No apparent distress HEENT: Atraumatic, Normocephalic Lungs: Normal air movement Psych/Mental Status: Normal Affect Assessment/Plan Active Problems (Last Updated 11/30/19 @ 17:[address] Meena Coyne, DO) Sacral decubitus ulcer, stage IV (Acute) Decubitus ulcer of right buttock, stage 4 (Chronic) Decubitus ulcer of left buttock, stage 4 (Chronic) Paraplegia (Chronic) Chronic osteomyelitis involving pelvic region and thigh (Chronic) The patient appears to be tolerating hyperbaric oxygen therapy well, which will be continued as per his medical treatment plan. Treatment Course Number Number of HBO Treatments 60 Ordered Treatment Course Number 1 Treatment # 48 Chamber # [id number] Chamber Type Monoplace HBO Diagnosis/Indication Diagnosis/Indication(s) for Standard/Conservative Hyperbaric Therapy Diabetes - Detail Diabetes Diabetes Type II Diabetes Control Uncontrolled Other - Detail Chronic Refractory Yes Osteomyelitis (specify site in comment) Compromised/Failed Flap/Graft Yes (specify site in comment) Treatment Plan KRISTEN (Atmospheric Absolute) 2 Number of Minutes 90 Number of Air Breaks 0 HBO Supervision
[2019-12-06 13:06] LABS: Bedside Glucose 112 mg/dL (70-110)
[2019-12-07 11:18] VITALS: BP 130/69; BP 135/81; PULSE 78; PULSE 80; RESP 16; RESP 18; TEMP 36.6; TEMP 36.7
[2019-12-07 11:35] LABS: Bedside Glucose 207 mg/dL (70-110)
--- NOTE | 2019-12-07 13:53 | PCM.HBO.PN ---
History of Present Illness Date of Service: 12/07/19 Presenting Chief Complaint: Non healing, chronic decubitus pressure ulcers, stage IV, with osteomyelitis - thigh, buttock, sacrum. GABBI CARBAJAL is a 34 year old currently undergoing hyperbaric oxygen therapy for osteomyelitis, Stage 4 pressure ulcer sacrum, thigh, and buttock. Progress: Today is the 49th treatment of hyperbaric oxygen therapy. Tolerance of hyperbaric oxygen therapy: Hyperbaric oxygen treatment was provided as per the facility's protocol at 2.0 KRISTEN in 100% oxygen for 90 minutes without air breaks. The patient tolerated hyperbaric oxygen well, without complications or complaints. Pre and post blood sugar readings are noted in the clinical panel. Upon emergence of the hyperbaric chamber, the patient's vital signs remained stable. Past Medical History Chronic Problems (Last Updated 11/30/19 @ 17:[address] Meena Coyne, ) Decubitus ulcer of right buttock, stage 4 (Chronic) Decubitus ulcer of left buttock, stage 4 (Chronic) Chronic osteomyelitis involving pelvic region and thigh (Chronic) Paraplegia (Chronic) Sacral decubitus ulcer, stage IV (Chronic) Decubitus ulcer of right buttock, stage 4 (Chronic) Decubitus ulcer of left buttock, stage 4 (Chronic) Chronic osteomyelitis involving pelvic region and thigh (Chronic) Paraplegia (Chronic) Allergies/Adverse Reactions: Allergies lidocaine Allergy (Verified 09/03/19 13:05) Unknown Home Medications: Ambulatory Orders Medication Instructions Recorded Sitagliptin Phosphate [Januvia] 100 mg PO DAILY 10/11/17 Baclofen 5 mg PO BID 10/12/18 Diazepam [Valium] 5 mg PO BID 10/12/18 Fentanyl 200 ea TD 10/12/18 Ferrous Sulfate 325 mg PO 10/12/18 Insulin Glargine,Hum.rec.anlog 10 unit SQ 10/12/18 [Lantus Solostar] Insulin Lispro [Humalog KwikPen] unit SQ 10/12/18 Magnesium Oxide [Magnesium] 400 mg PO BID 10/12/18 Melatonin 3 mg PO 10/12/18 Metoclopramide HCl [Reglan] 5 mg PO TID 10/12/18 Oxycodone [Oxyfast] 30 mg PO Q4H PRN 10/12/18 Pregabalin [Lyrica] 50 mg PO BID 10/12/18 Sitagliptin Phosphate [Januvia] 100 mg PO 10/12/18 traZODone [Desyrel] 50 mg PO QHS 10/12/18 Meloxicam 7.5 mg PO BID PRN 05/17/19 Methenamine Hippurate [Hiprex] 1 gm PO BID 05/17/19 Maternal Family History: No pertinent history Lives: Spouse/ Significant Other Smoking Status: Former smoker Tobacco Use: Non-smoker Alcohol: None Drugs: None Physical Exam Vital Signs Temp Pulse Resp BP 98.1 F 78 18 130/69 H 12/07/19 11:18 12/07/19 11:18 12/07/19 11:18 12/07/19 11:18 General: Alert, Oriented x3, Cooperative, No apparent distress Psych/Mental Status: Normal Affect, Appropriate Assessment/Plan Active Problems (Last Updated 11/30/19 @ 17:[address] Meena Coyne, DO) Sacral decubitus ulcer, stage IV (Acute) Decubitus ulcer of right buttock, stage 4 (Chronic) Decubitus ulcer of left buttock, stage 4 (Chronic) Paraplegia (Chronic) Chronic osteomyelitis involving pelvic region and thigh (Chronic) The patient appears to be tolerating hyperbaric oxygen therapy well, which will be continued as per his medical treatment plan. Treatment Course Number Number of HBO Treatments 60 Ordered Treatment Course Number 1 Treatment # 49 Chamber # [id number] Chamber Type Monoplace HBO Diagnosis/Indication Diagnosis/Indication(s) for Standard/Conservative Hyperbaric Therapy Diabetes - Detail Diabetes Diabetes Type II Diabetes Control Uncontrolled Other - Detail Chronic Refractory Yes Osteomyelitis (specify site in comment) Compromised/Failed Flap/Graft Yes (specify site in comment) Treatment Plan KRISTEN (Atmospheric Absolute) 2 Number of Minutes 90 Number of Air Breaks 0
[2019-12-07 14:06] LABS: Bedside Glucose 153 mg/dL (70-110)
[2019-12-11 12:10] LABS: Bedside Glucose 171 mg/dL (70-110)
[2019-12-11 12:56] LABS: Bedside Glucose 113 mg/dL (70-110)
--- NOTE | 2019-12-11 13:08 | PCM.HBO.PN ---
History of Present Illness Date of Service: 12/11/19 Presenting Chief Complaint: Non healing, chronic decubitus pressure ulcers, stage IV, with osteomyelitis - thigh, buttock, sacrum. GABBI CARBAJAL is a 34 year old currently undergoing hyperbaric oxygen therapy for osteomyelitis, Stage 4 pressure ulcer sacrum, thigh, and buttock. Progress: Today is the 49th treatment of hyperbaric oxygen therapy. Tolerance of hyperbaric oxygen therapy: Hyperbaric oxygen treatment was provided as per the facility's protocol at 2.0 KRISTEN in 100% oxygen for 90 minutes without air breaks. The patient tolerated hyperbaric oxygen well, without complications or complaints. Pre and post blood sugar readings are noted in the clinical panel. Upon emergence of the hyperbaric chamber, the patient's vital signs remained stable. Patient was discharged in good condition. Past Medical History Chronic Problems (Last Updated 11/30/19 @ 17:[address] Meena Coyne, DO) Decubitus ulcer of right buttock, stage 4 (Chronic) Decubitus ulcer of left buttock, stage 4 (Chronic) Chronic osteomyelitis involving pelvic region and thigh (Chronic) Paraplegia (Chronic) Sacral decubitus ulcer, stage IV (Chronic) Decubitus ulcer of right buttock, stage 4 (Chronic) Decubitus ulcer of left buttock, stage 4 (Chronic) Chronic osteomyelitis involving pelvic region and thigh (Chronic) Paraplegia (Chronic) Allergies/Adverse Reactions: Allergies lidocaine Allergy (Verified 09/03/19 13:05) Unknown Home Medications: Ambulatory Orders Medication Instructions Recorded Sitagliptin Phosphate [Januvia] 100 mg PO DAILY 10/11/17 Baclofen 5 mg PO BID 10/12/18 Diazepam [Valium] 5 mg PO BID 10/12/18 Fentanyl 200 ea TD 10/12/18 Ferrous Sulfate 325 mg PO 10/12/18 Insulin Glargine,Hum.rec.anlog 10 unit SQ 10/12/18 [Lantus Solostar] Insulin Lispro [Humalog KwikPen] unit SQ 10/12/18 Magnesium Oxide [Magnesium] 400 mg PO BID 10/12/18 Melatonin 3 mg PO 10/12/18 Metoclopramide HCl [Reglan] 5 mg PO TID 10/12/18 Oxycodone [Oxyfast] 30 mg PO Q4H PRN 10/12/18 Pregabalin [Lyrica] 50 mg PO BID 10/12/18 Sitagliptin Phosphate [Januvia] 100 mg PO 10/12/18 traZODone [Desyrel] 50 mg PO QHS 10/12/18 Meloxicam 7.5 mg PO BID PRN 05/17/19 Methenamine Hippurate [Hiprex] 1 gm PO BID 05/17/19 Maternal Family History: No pertinent history Lives: Spouse/ Significant Other Smoking Status: Former smoker Tobacco Use: Non-smoker Alcohol: None Drugs: None Physical Exam Vital Signs Temp Pulse Resp BP 98.1 F 78 18 130/69 H 12/07/19 11:18 12/07/19 11:18 12/07/19 11:18 12/07/19 11:18 General: Alert, Oriented x3, Cooperative, No apparent distress, Well developed, Well nourished HEENT: Atraumatic, PERRLA, EOMI, Normocephalic Lungs: Normal air movement Psych/Mental Status: Normal Affect, Appropriate, Alert and oriented to time, place, person, mood and affect Assessment/Plan Active Problems (Last Updated 11/30/19 @ 17:[address] Meena Coyne, DO) Sacral decubitus ulcer, stage IV (Acute) Decubitus ulcer of right buttock, stage 4 (Chronic) Decubitus ulcer of left buttock, stage 4 (Chronic) Paraplegia (Chronic) Chronic osteomyelitis involving pelvic region and thigh (Chronic) Patient appears to be tolerating hyperbaric oxygen therapy well, which will be continued as per the patient's medical plan. Treatment Course Number Number of HBO Treatments 60 Ordered Treatment Course Number 1 Treatment # 49 Chamber # [id number] Chamber Type Monoplace HBO Diagnosis/Indication Diagnosis/Indication(s) for Standard/Conservative Hyperbaric Therapy Diabetes - Detail Diabetes Diabetes Type II Diabetes Control Uncontrolled Other - Detail Chronic Refractory Yes Osteomyelitis (specify site in comment) Compromised/Failed Flap/Graft Yes (specify site in comment) Treatment Plan KRISTEN (Atmospheric Absolute) 2 Number of Minutes 90 Number of Air Breaks 0
[2019-12-11 13:27] VITALS: BP 125/69; BP 128/60; PULSE 74; PULSE 93; RESP 16; TEMP 36.3; TEMP 36.6
[2019-12-12 10:26] LABS: Bedside Glucose 226 mg/dL (70-110)
[2019-12-12 12:46] LABS: Bedside Glucose 189 mg/dL (70-110)
[2019-12-12 15:12] VITALS: BP 115/71; BP 136/63; PULSE 77; PULSE 81; RESP 18; TEMP 36.4; TEMP 36.6
[2019-12-15 15:20] LABS: Bedside Glucose 141 mg/dL (70-110)
== END 2019-12-12 23:59 ==
LOC: WC 10:30
PROVIDERS: Visit Provider Nurse Practitioner Family
DX: L89.324 Pressure ulcer of left buttock, stage 4 (principal); L89.154 Pressure ulcer of sacral region, stage 4; L89.314 Pressure ulcer of right buttock, stage 4; G82.20 Paraplegia, unspecified; M86.68 Other chronic osteomyelitis, other site; E11.69 Type 2 diabetes mellitus with other specified complication
CPT/HCPCS: 11042; 11045; 82962; 99183; G0277

== ENCOUNTER 2020-01-11 10:30 | Outpatient (RCR) | payer OTHER, SELFPAY ==
[2019-12-06 10:06] VITALS: BMI 21.8
[2019-12-13 00:41] VITALS: BP 115/71; PULSE 81; RESP 18; TEMP 36.6
[2019-12-14 12:56] LABS: Bedside Glucose 88 mg/dL (70-110)
[2019-12-14 13:08] VITALS: BP 116/71; BP 117/79; PULSE 85; PULSE 89; RESP 16; RESP 18; TEMP 36.2; TEMP 36.6
--- NOTE | 2019-12-14 15:13 | PCM.HBO.PN ---
History of Present Illness Date of Service: 12/14/19 Presenting Chief Complaint: Non healing, chronic decubitus pressure ulcers, stage IV, with osteomyelitis - thigh, buttock, sacrum. GABBI CARBAJAL is a 34 year old currently undergoing hyperbaric oxygen therapy for osteomyelitis, Stage 4 pressure ulcer sacrum, thigh, and buttock. Progress: Today is the 51st treatment of hyperbaric oxygen therapy. The patient is scheduled for 60 treatments total. Tolerance of hyperbaric oxygen therapy: Hyperbaric oxygen treatment was provided as per the facility's protocol at 2.0 KRISTEN in 100% oxygen for 90 minutes without air breaks. The patient tolerated hyperbaric oxygen well, without complications or complaints. Upon emergence of the hyperbaric chamber, the patient's vital signs remained stable. Past Medical History Chronic Problems (Last Updated 11/30/19 @ 17:[address] Meena Coyne DO) Decubitus ulcer of right buttock, stage 4 (Chronic) Decubitus ulcer of left buttock, stage 4 (Chronic) Chronic osteomyelitis involving pelvic region and thigh (Chronic) Paraplegia (Chronic) Sacral decubitus ulcer, stage IV (Chronic) Decubitus ulcer of right buttock, stage 4 (Chronic) Decubitus ulcer of left buttock, stage 4 (Chronic) Chronic osteomyelitis involving pelvic region and thigh (Chronic) Paraplegia (Chronic) Allergies/Adverse Reactions: Allergies lidocaine Allergy (Verified 09/03/19 13:05) Unknown Home Medications: Ambulatory Orders Medication Instructions Recorded Sitagliptin Phosphate [Januvia] 100 mg PO DAILY 10/11/17 Baclofen 5 mg PO BID 10/12/18 Diazepam [Valium] 5 mg PO BID 10/12/18 Fentanyl 200 ea TD 10/12/18 Ferrous Sulfate 325 mg PO 10/12/18 Insulin Glargine,Hum.rec.anlog 10 unit SQ 10/12/18 [Lantus Solostar] Insulin Lispro [Humalog KwikPen] unit SQ 10/12/18 Magnesium Oxide [Magnesium] 400 mg PO BID 10/12/18 Melatonin 3 mg PO 10/12/18 Metoclopramide HCl [Reglan] 5 mg PO TID 10/12/18 Oxycodone [Oxyfast] 30 mg PO Q4H PRN 10/12/18 Pregabalin [Lyrica] 50 mg PO BID 10/12/18 Sitagliptin Phosphate [Januvia] 100 mg PO 10/12/18 traZODone [Desyrel] 50 mg PO QHS 10/12/18 Meloxicam 7.5 mg PO BID PRN 05/17/19 Methenamine Hippurate [Hiprex] 1 gm PO BID 05/17/19 Maternal Family History: No pertinent history Smoking Status: Former smoker Tobacco Use: Non-smoker Physical Exam Vital Signs Temp Pulse Resp BP 97.8 F 85 18 117/79 12/14/19 13:08 12/14/19 13:08 12/14/19 13:08 12/14/19 13:08 General: Alert, Oriented x3, Cooperative, No apparent distress Psych/Mental Status: Normal Affect, Appropriate Assessment/Plan Active Problems (Last Updated 11/30/19 @ 17:[address] Meena Coyne, DO) Sacral decubitus ulcer, stage IV (Chronic) Decubitus ulcer of right buttock, stage 4 (Chronic) Decubitus ulcer of left buttock, stage 4 (Chronic) Chronic osteomyelitis involving pelvic region and thigh (Chronic) Paraplegia (Chronic) The patient appears to be tolerating hyperbaric oxygen therapy well, which will be continued as per his medical treatment plan. Treatment Course Number Treatment Course Number 1 Treatment # 51 Chamber # 2 Chamber Type Monoplace HBO Diagnosis/Indication Diagnosis/Indication(s) for Standard/Conservative Hyperbaric Therapy Diabetes - Detail Diabetes Diabetes Type II Other - Detail Chronic Refractory Yes Osteomyelitis (specify site in comment) Compromised/Failed Flap/Graft Yes (specify site in comment) Treatment Plan KRISTEN (Atmospheric Absolute) 2.0 Number of Minutes 90 Number of Air Breaks 0
[2019-12-17 10:41] LABS: Bedside Glucose 195 mg/dL (70-110)
--- NOTE | 2019-12-17 11:28 | PCM.HBO.PN ---
History of Present Illness Date of Service: 12/17/19 Presenting Chief Complaint: Non healing, chronic decubitus pressure ulcers, stage IV, with osteomyelitis - thigh, buttock, sacrum. GABBI CARBAJAL is a 34 year old currently undergoing hyperbaric oxygen therapy for osteomyelitis, Stage 4 pressure ulcer sacrum, thigh, and buttock. Progress: Today is the 52nd treatment of hyperbaric oxygen therapy. The patient is scheduled for 60 treatments total. Tolerance of hyperbaric oxygen therapy: Hyperbaric oxygen treatment was provided as per the facility's protocol at 2.0 KRISTEN in 100% oxygen for 90 minutes without air breaks. The patient tolerated hyperbaric oxygen well, without complications or complaints. Upon emergence of the hyperbaric chamber, the patient's vital signs remained stable. Past Medical History Chronic Problems (Last Updated 12/14/19 @ 15:[address] Meena Coyne, DO) Decubitus ulcer of right buttock, stage 4 (Chronic) Decubitus ulcer of left buttock, stage 4 (Chronic) Chronic osteomyelitis involving pelvic region and thigh (Chronic) Paraplegia (Chronic) Sacral decubitus ulcer, stage IV (Chronic) Decubitus ulcer of right buttock, stage 4 (Chronic) Decubitus ulcer of left buttock, stage 4 (Chronic) Chronic osteomyelitis involving pelvic region and thigh (Chronic) Paraplegia (Chronic) Allergies/Adverse Reactions: Allergies lidocaine Allergy (Verified 09/03/19 13:05) Unknown Home Medications: Ambulatory Orders Medication Instructions Recorded Sitagliptin Phosphate [Januvia] 100 mg PO DAILY 10/11/17 Baclofen 5 mg PO BID 10/12/18 Diazepam [Valium] 5 mg PO BID 10/12/18 Fentanyl 200 ea TD 10/12/18 Ferrous Sulfate 325 mg PO 10/12/18 Insulin Glargine,Hum.rec.anlog 10 unit SQ 10/12/18 [Lantus Solostar] Insulin Lispro [Humalog KwikPen] unit SQ 10/12/18 Magnesium Oxide [Magnesium] 400 mg PO BID 10/12/18 Melatonin 3 mg PO 10/12/18 Metoclopramide HCl [Reglan] 5 mg PO TID 10/12/18 Oxycodone [Oxyfast] 30 mg PO Q4H PRN 10/12/18 Pregabalin [Lyrica] 50 mg PO BID 10/12/18 Sitagliptin Phosphate [Januvia] 100 mg PO 10/12/18 traZODone [Desyrel] 50 mg PO QHS 10/12/18 Meloxicam 7.5 mg PO BID PRN 05/17/19 Methenamine Hippurate [Hiprex] 1 gm PO BID 05/17/19 Maternal Family History: No pertinent history Smoking Status: Former smoker Tobacco Use: Non-smoker Physical Exam Vital Signs Temp Pulse Resp BP 97.8 F 85 18 117/79 12/14/19 13:08 12/14/19 13:08 12/14/19 13:08 12/14/19 13:08 General: Alert, Oriented x3, Cooperative, No apparent distress HEENT: Atraumatic, TM's Clear Lungs: Clear to auscultation, Normal air movement Cardiovascular: Regular rate, Regular Rhythm Psych/Mental Status: Normal Affect, Appropriate, Alert and oriented to time, place, person, mood and affect Assessment/Plan Active Problems (Last Updated 12/14/19 @ 15:[address] Meena Coyne, DO) Sacral decubitus ulcer, stage IV (Chronic) Decubitus ulcer of right buttock, stage 4 (Chronic) Decubitus ulcer of left buttock, stage 4 (Chronic) Chronic osteomyelitis involving pelvic region and thigh (Chronic) Paraplegia (Chronic) Treatment Course Number Treatment Course Number 1 Treatment # 52 Chamber # 2 Chamber Type Monoplace HBO Diagnosis/Indication Diagnosis/Indication(s) for Standard/Conservative Hyperbaric Therapy Diabetes - Detail Diabetes Diabetes Type II Other - Detail Chronic Refractory Yes Osteomyelitis (specify site in comment) Compromised/Failed Flap/Graft Yes (specify site in comment) Treatment Plan KRISTEN (Atmospheric Absolute) 2.0 Number of Minutes 90 Number of Air Breaks 0
[2019-12-17 12:02] VITALS: BP 107/66; BP 128/74; PULSE 81; PULSE 84; RESP 16; RESP 18; TEMP 36.2; TEMP 36.9
[2019-12-17 12:55] LABS: Bedside Glucose 96 mg/dL (70-110)
[2019-12-18 10:35] LABS: Bedside Glucose 133 mg/dL (70-110)
--- NOTE | 2019-12-18 12:42 | PCM.HBO.PN ---
History of Present Illness Date of Service: 12/18/19 Presenting Chief Complaint: Non healing, chronic decubitus pressure ulcers, stage IV, with osteomyelitis - thigh, buttock, sacrum. GABBI CARBAJAL is a 34 year old currently undergoing hyperbaric oxygen therapy for osteomyelitis, Stage 4 pressure ulcer sacrum, thigh, and buttock. Progress: Today is the 53rd treatment of hyperbaric oxygen therapy. The patient is scheduled for 60 treatments total. Tolerance of hyperbaric oxygen therapy: Hyperbaric oxygen treatment was provided as per the facility's protocol at 2.0 KRISTEN in 100% oxygen for 90 minutes without air breaks. The patient tolerated hyperbaric oxygen well, without complications or complaints. Upon emergence of the hyperbaric chamber, the patient's vital signs remained stable. He was discharged in good condition. Pre- and post- blood sugars are documented elsewhere. Past Medical History Chronic Problems (Last Updated 12/14/19 @ 15:[address] Meena Coyne DO) Decubitus ulcer of right buttock, stage 4 (Chronic) Decubitus ulcer of left buttock, stage 4 (Chronic) Chronic osteomyelitis involving pelvic region and thigh (Chronic) Paraplegia (Chronic) Sacral decubitus ulcer, stage IV (Chronic) Decubitus ulcer of right buttock, stage 4 (Chronic) Decubitus ulcer of left buttock, stage 4 (Chronic) Chronic osteomyelitis involving pelvic region and thigh (Chronic) Paraplegia (Chronic) Allergies/Adverse Reactions: Allergies lidocaine Allergy (Verified 09/03/19 13:05) Unknown Home Medications: Ambulatory Orders Medication Instructions Recorded Sitagliptin Phosphate [Januvia] 100 mg PO DAILY 10/11/17 Baclofen 5 mg PO BID 10/12/18 Diazepam [Valium] 5 mg PO BID 10/12/18 Fentanyl 200 ea TD 10/12/18 Ferrous Sulfate 325 mg PO 10/12/18 Insulin Glargine,Hum.rec.anlog 10 unit SQ 10/12/18 [Lantus Solostar] Insulin Lispro [Humalog KwikPen] unit SQ 10/12/18 Magnesium Oxide [Magnesium] 400 mg PO BID 10/12/18 Melatonin 3 mg PO 10/12/18 Metoclopramide HCl [Reglan] 5 mg PO TID 10/12/18 Oxycodone [Oxyfast] 30 mg PO Q4H PRN 10/12/18 Pregabalin [Lyrica] 50 mg PO BID 10/12/18 Sitagliptin Phosphate [Januvia] 100 mg PO 10/12/18 traZODone [Desyrel] 50 mg PO QHS 10/12/18 Meloxicam 7.5 mg PO BID PRN 05/17/19 Methenamine Hippurate [Hiprex] 1 gm PO BID 05/17/19 Maternal Family History: No pertinent history Smoking Status: Former smoker Tobacco Use: Non-smoker Physical Exam Vital Signs Temp Pulse Resp BP 98.5 F 81 18 107/66 12/17/19 12:02 12/17/19 12:02 12/17/19 12:02 12/17/19 12:02 General: Alert, Oriented x3, Cooperative, No apparent distress, Well developed, Well nourished HEENT: Atraumatic, PERRLA, EOMI, Normocephalic Lungs: Normal air movement Psych/Mental Status: Normal Affect, Appropriate, Alert and oriented to time, place, person, mood and affect Assessment/Plan Active Problems (Last Updated 12/14/19 @ 15:[address] Meena Coyne, DO) Sacral decubitus ulcer, stage IV (Chronic) Decubitus ulcer of right buttock, stage 4 (Chronic) Decubitus ulcer of left buttock, stage 4 (Chronic) Chronic osteomyelitis involving pelvic region and thigh (Chronic) Paraplegia (Chronic) The patient appears to be tolerating hyperbaric oxygen therapy well, which will be continued as per the patient's medical plan. Treatment Course Number Number of HBO Treatments 72 Ordered Treatment Course Number 1 Treatment # 52 Chamber # [id number] Chamber Type Monoplace HBO Diagnosis/Indication Diagnosis/Indication(s) for Standard/Conservative Hyperbaric Therapy Diabetes - Detail Diabetes Diabetes Type II Other - Detail Chronic Refractory Yes Osteomyelitis (specify site in comment) Compromised/Failed Flap/Graft Yes (specify site in comment) Treatment Plan KRISTEN (Atmospheric Absolute) 2 Number of Minutes 90 Number of Air Breaks 0
[2019-12-18 13:05] VITALS: BP 128/62; BP 138/65; PULSE 102; PULSE 104; RESP 16; RESP 18; TEMP 36; TEMP 36.1
[2019-12-18 13:06] LABS: Bedside Glucose 128 mg/dL (70-110)
[2019-12-19 10:51] LABS: Bedside Glucose 203 mg/dL (70-110)
[2019-12-19 12:50] LABS: Bedside Glucose 109 mg/dL (70-110)
--- NOTE | 2019-12-19 13:02 | PCM.HBO.PN ---
History of Present Illness Date of Service: 12/19/19 Presenting Chief Complaint: Non healing, chronic decubitus pressure ulcers, stage IV, with osteomyelitis - thigh, buttock, sacrum. GABBI CARBAJAL is a 34 year old currently undergoing hyperbaric oxygen therapy for osteomyelitis, Stage 4 pressure ulcer sacrum, thigh, and buttock. Progress: Today is the 54rd treatment of hyperbaric oxygen therapy. The patient is scheduled for 60 treatments total. Tolerance of hyperbaric oxygen therapy: Hyperbaric oxygen treatment was provided as per the facility's protocol at 2.0 KRISTEN in 100% oxygen for 90 minutes without air breaks. The patient tolerated hyperbaric oxygen well, without complications or complaints. Upon emergence of the hyperbaric chamber, the patient's vital signs remained stable. He was discharged in good condition. Pre- and post- blood sugars are documented elsewhere. Past Medical History Chronic Problems (Last Updated 12/14/19 @ 15:[address] Meena Coyne DO) Decubitus ulcer of right buttock, stage 4 (Chronic) Decubitus ulcer of left buttock, stage 4 (Chronic) Chronic osteomyelitis involving pelvic region and thigh (Chronic) Paraplegia (Chronic) Sacral decubitus ulcer, stage IV (Chronic) Decubitus ulcer of right buttock, stage 4 (Chronic) Decubitus ulcer of left buttock, stage 4 (Chronic) Chronic osteomyelitis involving pelvic region and thigh (Chronic) Paraplegia (Chronic) Allergies/Adverse Reactions: Allergies lidocaine Allergy (Verified 09/03/19 13:05) Unknown Home Medications: Ambulatory Orders Medication Instructions Recorded Sitagliptin Phosphate [Januvia] 100 mg PO DAILY 10/11/17 Baclofen 5 mg PO BID 10/12/18 Diazepam [Valium] 5 mg PO BID 10/12/18 Fentanyl 200 ea TD 10/12/18 Ferrous Sulfate 325 mg PO 10/12/18 Insulin Glargine,Hum.rec.anlog 10 unit SQ 10/12/18 [Lantus Solostar] Insulin Lispro [Humalog KwikPen] unit SQ 10/12/18 Magnesium Oxide [Magnesium] 400 mg PO BID 10/12/18 Melatonin 3 mg PO 10/12/18 Metoclopramide HCl [Reglan] 5 mg PO TID 10/12/18 Oxycodone [Oxyfast] 30 mg PO Q4H PRN 10/12/18 Pregabalin [Lyrica] 50 mg PO BID 10/12/18 Sitagliptin Phosphate [Januvia] 100 mg PO 10/12/18 traZODone [Desyrel] 50 mg PO QHS 10/12/18 Meloxicam 7.5 mg PO BID PRN 05/17/19 Methenamine Hippurate [Hiprex] 1 gm PO BID 05/17/19 Maternal Family History: No pertinent history Smoking Status: Former smoker Tobacco Use: Non-smoker Physical Exam Vital Signs Temp Pulse Resp BP 96.9 F L 102 H 18 138/65 H 12/18/19 13:05 12/18/19 13:05 12/18/19 13:05 12/18/19 13:05 Assessment/Plan Active Problems (Last Updated 12/14/19 @ 15:[address] Meena Coyne, DO) Sacral decubitus ulcer, stage IV (Chronic) Decubitus ulcer of right buttock, stage 4 (Chronic) Decubitus ulcer of left buttock, stage 4 (Chronic) Chronic osteomyelitis involving pelvic region and thigh (Chronic) Paraplegia (Chronic) The patient appears to be tolerating hyperbaric oxygen therapy well, which will be continued as per the patient's medical plan. Treatment Course Number Number of HBO Treatments 72 Ordered Treatment Course Number 1 Treatment # 53 Chamber # 2 Chamber Type Monoplace HBO Diagnosis/Indication Diagnosis/Indication(s) for Standard/Conservative Hyperbaric Therapy Diabetes - Detail Diabetes Diabetes Type II Other - Detail Chronic Refractory Yes Osteomyelitis (specify site in comment) Compromised/Failed Flap/Graft Yes (specify site in comment) Treatment Plan KRISTEN (Atmospheric Absolute) 2.0 Number of Minutes 90 Number of Air Breaks 0
[2019-12-19 17:08] VITALS: BP 117/60; BP 141/79; PULSE 86; PULSE 87; RESP 18; TEMP 36.6; TEMP 36.7
[2019-12-25 10:35] LABS: Bedside Glucose 201 mg/dL (70-110)
[2019-12-25 12:55] LABS: Bedside Glucose 196 mg/dL (70-110)
--- NOTE | 2019-12-25 13:08 | PCM.HBO.PN ---
History of Present Illness Date of Service: 12/25/19 Presenting Chief Complaint: Non healing, chronic decubitus pressure ulcers, stage IV, with osteomyelitis - thigh, buttock, sacrum. GABBI CARBAJAL is a 34 year old currently undergoing hyperbaric oxygen therapy for osteomyelitis, Stage 4 pressure ulcer sacrum, thigh, and buttock. Progress: Today is the 55th treatment of hyperbaric oxygen therapy. The patient is scheduled for 60 treatments total. Tolerance of hyperbaric oxygen therapy: Hyperbaric oxygen treatment was provided as per the facility's protocol at 2.0 KRISTEN in 100% oxygen for 90 minutes without air breaks. The patient tolerated hyperbaric oxygen well, without complications or complaints. Upon emergence of the hyperbaric chamber, the patient's vital signs remained stable. He was discharged in good condition. Pre- and post- blood sugars are documented elsewhere. Past Medical History Chronic Problems (Last Updated 12/14/19 @ 15:[address] Meena Coyne DO) Decubitus ulcer of right buttock, stage 4 (Chronic) Decubitus ulcer of left buttock, stage 4 (Chronic) Chronic osteomyelitis involving pelvic region and thigh (Chronic) Paraplegia (Chronic) Sacral decubitus ulcer, stage IV (Chronic) Decubitus ulcer of right buttock, stage 4 (Chronic) Decubitus ulcer of left buttock, stage 4 (Chronic) Chronic osteomyelitis involving pelvic region and thigh (Chronic) Paraplegia (Chronic) Allergies/Adverse Reactions: Allergies lidocaine Allergy (Verified 09/03/19 13:05) Unknown Home Medications: Ambulatory Orders Medication Instructions Recorded Sitagliptin Phosphate [Januvia] 100 mg PO DAILY 10/11/17 Baclofen 5 mg PO BID 10/12/18 Diazepam [Valium] 5 mg PO BID 10/12/18 Fentanyl 200 ea TD 10/12/18 Ferrous Sulfate 325 mg PO 10/12/18 Insulin Glargine,Hum.rec.anlog 10 unit SQ 10/12/18 [Lantus Solostar] Insulin Lispro [Humalog KwikPen] unit SQ 10/12/18 Magnesium Oxide [Magnesium] 400 mg PO BID 10/12/18 Melatonin 3 mg PO 10/12/18 Metoclopramide HCl [Reglan] 5 mg PO TID 10/12/18 Oxycodone [Oxyfast] 30 mg PO Q4H PRN 10/12/18 Pregabalin [Lyrica] 50 mg PO BID 10/12/18 Sitagliptin Phosphate [Januvia] 100 mg PO 10/12/18 traZODone [Desyrel] 50 mg PO QHS 10/12/18 Meloxicam 7.5 mg PO BID PRN 05/17/19 Methenamine Hippurate [Hiprex] 1 gm PO BID 05/17/19 Maternal Family History: No pertinent history Smoking Status: Former smoker Tobacco Use: Non-smoker Physical Exam Vital Signs Temp Pulse Resp BP 98.1 F 86 18 117/60 12/19/19 17:08 12/19/19 17:08 12/19/19 17:08 12/19/19 17:08 General: Alert, Oriented x3, Cooperative, No apparent distress, Well developed, Well nourished HEENT: Atraumatic, PERRLA, EOMI, Normocephalic Lungs: Normal air movement Psych/Mental Status: Normal Affect, Appropriate, Alert and oriented to time, place, person, mood and affect Assessment/Plan Active Problems (Last Updated 12/14/19 @ 15:[address] Meena Coyne, DO) Sacral decubitus ulcer, stage IV (Chronic) Decubitus ulcer of right buttock, stage 4 (Chronic) Decubitus ulcer of left buttock, stage 4 (Chronic) Chronic osteomyelitis involving pelvic region and thigh (Chronic) Paraplegia (Chronic) The patient appears to be tolerating hyperbaric oxygen therapy well, which will continue as per the patient's medical plan. Treatment Course Number Number of HBO Treatments 72 Ordered Treatment Course Number 1 Treatment # 54 Chamber # [id number] Chamber Type Monoplace HBO Diagnosis/Indication Diagnosis/Indication(s) for Standard/Conservative Hyperbaric Therapy Diabetes - Detail Diabetes Diabetes Type II Other - Detail Chronic Refractory Yes Osteomyelitis (specify site in comment) Compromised/Failed Flap/Graft Yes (specify site in comment) Treatment Plan KRISTEN (Atmospheric Absolute) 2.0 Number of Minutes 90 Number of Air Breaks 0
[2019-12-25 13:49] VITALS: BP 125/74; BP 147/65; PULSE 71; PULSE 81; RESP 16; TEMP 36.5; TEMP 36.6
[2019-12-26 11:06] LABS: Bedside Glucose 288 mg/dL (70-110)
[2019-12-26 11:06] LABS: Bedside Glucose 317 mg/dL (70-110)
[2019-12-27 09:19] VITALS: BP 136/81; PULSE 91; RESP 18; TEMP 37.1; BMI 21.8
--- NOTE | 2019-12-27 10:00 | PN.PCM_ITS ---
(1) Decubitus ulcer of left buttock, stage 4 Status: Chronic Code(s): L89.324 - Pressure ulcer of left buttock, stage 4 (2) Decubitus ulcer of right buttock, stage 4 Status: Chronic Code(s): L89.314 - Pressure ulcer of right buttock, stage 4 (3) Sacral decubitus ulcer, stage IV Status: Chronic Code(s): L89.154 - Pressure ulcer of sacral region, stage 4 (4) Sacral decubitus ulcer, stage IV Status: Acute Code(s): L89.154 - Pressure ulcer of sacral region, stage 4 (5) Chronic osteomyelitis involving pelvic region and thigh Status: Chronic Code(s): M86.659 - Other chronic osteomyelitis, unspecified thigh (6) Paraplegia Status: Chronic Code(s): G82.20 - Paraplegia, unspecified Type of Wound Date of Service: 12/27/19 Chief Complaint: Non healing, chronic decubitus pressure ulcers, stage IV, with osteomyelitis - thigh, buttock, sacrum. History of Wound: Mr. Joyce is a 33yo well known to the wound center but was last seen here over a month ago. Initial sacral ulcer was said to have started in November and Buttock ulcers were noted subsequently. He has had an extensive hospital stay over the last couple of months following a work related injury. Both during his hopsital and senior living stays, he had wound care ranging from surgical debridement, wound vac and collagen use. He was scheduled to be restarted on his wound Vac prior to his discharge from the [facility]. He reports significant drainage from the wounds. Also of note is a history of osteomyelitis for which he was on a 6 week IV antibiotic. His however states they were informed that he had developed chronic extensive pelvic area osteomyelitis. He feels well otherwise at this time and denies chills, fever,nausea, vomitting or change in bowel habit. 02/22/2019: Above, he was last seen here over a month ago. Had an extensive hospital stay [facility] due to complications from prior neck surgery. They state that his ulcers have been stable. Been doing the acetic acid soak for 10 minutes and then calcium alginate/collagen dressings. Is any concerns at this time. Progress of Wound: No new concerns at this time. Slowly improving. - Physical Exam Vital Signs Temp Pulse Resp BP 98.7 F 91 18 136/81 H 12/27/19 09:19 12/27/19 09:19 12/27/19 09:19 12/27/19 09:19 General: Alert, Oriented x3, Cooperative, No apparent distress HEENT: Atraumatic, Normocephalic Oral: Moist Mucosa Neck: Supple Lungs: Normal air movement Extremities: No cyanosis Skin: Ulcer/ Wound Wound Measurements and Assessment WC - Nurse 1 - General Ulcer Measurement Start: 12/14/19 13:08 Freq: Status: Active Protocol: Activity Type Activity Date Activity User E-Sign Co-Sign Detail Recorded Client Recorded Date Recorded By Document 12/27/19 09:19 NH [id number] 12/27/19 09:47 NH 12/27/19 09:19 Wound Center Nurse 1 [Ulcer Assessment] #7 Sacral -Current Size (cm) - Length 6 -Current Size (cm) - Width 13 -Current Size (cm) - Depth 1.6 -Total Square Cm 78 -Undermining/Tunneling Yes -Undermining/Tunneling Starts (O' 10 clock) -Undermining/Tunneling Ends (O'clock) 11 -Maximum Distance (cm) 5.9 -Undermining/Tunneling Starts #2 (O' 1 clock) -Undermining/Tunneling Ends #2 (O' 2 clock) -Maximum Distance #2 (cm) 3.5 -Exudate Amt Small -Exudate Type Sanguineous -Wound Margin Thickened & Rolled Under -Granulation Amt Large (67-100%) -Granulation Quality Pale,[place],Red -Texture (Sheyla-wound Skin Appearance) Assessed -Moisture (Sheyla-wound Skin Appearance Assessed ) -Color (Sheyla-wound Skin Appearance) Assessed -Temperature (Sheyla-wound Skin No Abnormality Appearance) (Pt Warm) -Tenderness on Palpation (Sheyla-wound No Skin Appearance) -Ulcer Cleansing Wound Cleanser -Foul Odor after Cleansing No #6 R Buttocks -Current Size (cm) - Length 9.5 -Current Size (cm) - Width 4.4 -Current Size (cm) - Depth 0.7 -Total Square Cm 41.80 -Undermining/Tunneling Yes -Undermining/Tunneling Starts (O' 3 clock) -Undermining/Tunneling Ends (O'clock) 6 -Maximum Distance (cm) 2.1 -Exudate Amt Small -Exudate Type Serosanguineous -Wound Margin Thickened & Rolled Under -Granulation Amt Large (67-100%) -Granulation Quality Pale,[place],Red -Texture (Sheyla-wound Skin Appearance) Assessed -Moisture (Sheyla-wound Skin Appearance Assessed ) -Color (Sheyla-wound Skin Appearance) Assessed -Temperature (Sheyla-wound Skin No Abnormality Appearance) (Pt Warm) -Tenderness on Palpation (Sheyla-wound No Skin Appearance) -Ulcer Cleansing Wound Cleanser -Foul Odor after Cleansing No #5 L Buttocks -Current Size (cm) - Length 7.5 -Current Size (cm) - Width 9 -Current Size (cm) - Depth 2.5 -Total Square Cm 67.5 -Undermining/Tunneling Yes -Undermining/Tunneling Starts (O' 6 clock) -Undermining/Tunneling Ends (O'clock) 9 -Maximum Distance (cm) 2.4 -Wound Margin Flat & Intact -Granulation Amt Large (67-100%) -Granulation Quality Pale,[place],Red -Slough/Fibrin No -Texture (Sheyla-wound Skin Appearance) Assessed -Moisture (Sheyla-wound Skin Appearance Assessed ) -Color (Sheyla-wound Skin Appearance) Assessed -Temperature (Sheyla-wound Skin No Abnormality Appearance) (Pt Warm) -Tenderness on Palpation (Sheyla-wound No Skin Appearance) -Ulcer Cleansing Wound Cleanser -Foul Odor after Cleansing No [Edema Assessment] -Lower Limb Edema Present NA WC - Nurse 2 - General Ulcer CM Notes Start: 12/14/19 13:08 Freq: Status: Active Protocol: Activity Type Activity Date Activity User E-Sign Co-Sign Detail Recorded Client Recorded Date Recorded By Document 12/27/19 09:48 MW [id number] 12/27/19 09:54 MW 12/27/19 09:48 Wound Center Nurse 2 [Procedure/Treatment] #7 Sacral -Time 09:48 -Correct Patient Yes -Correct Side, Site, Position Yes -Correct Procedure Yes -Procedure Performed Yes -Type of Procedure Debridement -Clinical Debridement Subcutaneous -Tissue Removed Subcutaneous -Post Debridement (cm) - Length 5.0 -Post Debridement (cm) - Width 12.5 -Post Debridement (cm) - Depth 1.7 -Total Square (Post) (cm) 62.50 -Area of Debridement (cm) - Length 5.0 -Area of Debridement (cm) - Width 12.5 -Total Square (Area) (cm) 62.50 -Tunneling No -Undermining/Tunneling No -Circular Undermining No -Wound/Ulcer Outcome Not Healed -Ulcer Cleansing Rinsed/ Irrigated with Saline -Foul Odor after Cleansing No -Bioengineered Tissue No -Bleeding Controlled with Pressure -Offloading No -Treatment Response Procedure Tolerated Well -Debridement - Subq, 1st 20sq cm Yes -Debridement, SubQ, ea addt'l 20sq cm 3 or part thereof #6 R Buttocks -Time 09:48 -Correct Patient Yes -Correct Side, Site, Position Yes -Correct Procedure Yes -Procedure Performed Yes -Type of Procedure Debridement -Clinical Debridement Subcutaneous -Tissue Removed Subcutaneous -Post Debridement (cm) - Length 8.0 -Post Debridement (cm) - Width 3.3 -Post Debridement (cm) - Depth 1.7 -Total Square (Post) (cm) 26.40 -Area of Debridement (cm) - Length 8.0 -Area of Debridement (cm) - Width 3.3 -Total Square (Area) (cm) 26.40 -Tunneling No -Undermining/Tunneling No -Circular Undermining No -Ulcer Cleansing Rinsed/ Irrigated with Saline -Foul Odor after Cleansing No -Bioengineered Tissue No -Bleeding Controlled with Pressure -Offloading No -Treatment Response Procedure Tolerated Well -Debridement - Subq, 1st 20sq cm No -Debridement, SubQ, ea addt'l 20sq cm 1 or part thereof #5 L Buttocks -Time 09:49 -Correct Patient Yes -Correct Side, Site, Position Yes -Correct Procedure Yes -Procedure Performed Yes -Type of Procedure Debridement -Clinical Debridement Subcutaneous -Tissue Removed Subcutaneous -Post Debridement (cm) - Length 8.0 -Post Debridement (cm) - Width 5.0 -Post Debridement (cm) - Depth 2.5 -Total Square (Post) (cm) 40.00 -Area of Debridement (cm) - Length 8.0 -Area of Debridement (cm) - Width 5.0 -Total Square (Area) (cm) 40.00 -Tunneling No -Undermining/Tunneling No -Circular Undermining No -Ulcer Cleansing Rinsed/ Irrigated with Saline -Foul Odor after Cleansing No -Bioengineered Tissue No -Bleeding Controlled with Pressure -Offloading No -Treatment Response Procedure Tolerated Well -Debridement - Subq, 1st 20sq cm No [See Physician Procedure note for Specifics] Pain Scale: 0-10 Numeric [Pain] -Is Patient Pain Free? Yes - Nurse 3 - General Ulcer D/C NN Start: 12/14/19 13:08 Freq: Status: Active Protocol: Activity Type Activity Date Activity User E-Sign Co-Sign Detail Recorded Client Recorded Date Recorded By Document 12/25/19 13:49 [id number] 12/25/19 13:54 12/25/19 13:49 - Visit Discharge [Visit Discharge Information] -Discharge Condition Stable -Ambulatory Status Wheelchair -Transportation Private Auto -Accompanied by -Medication Reconcilliation completed Yes & provided to patient/care provider -Clinical Summary of Care Provided Yes Musculoskeletal: No Muscle Wasting Neurological: Cranial nerves II-XII grossly intact Psych/Mental Status: Normal Affect Debridement Note Post-Debridement Measurements/Treatment - Nurse 2 - General Ulcer CM Notes Start: 12/14/19 13:08 Freq: Status: Active Protocol: Activity Type Activity Date Activity User E-Sign Co-Sign Detail Recorded Client Recorded Date Recorded By Document 12/27/19 09:48 MW [id number] 12/27/19 09:54 MW 12/27/19 09:48 Wound Center Nurse 2 #7 Sacral -Time 09:48 -Correct Patient Yes -Correct Side, Site, Position Yes -Correct Procedure Yes -Procedure Performed Yes -Type of Procedure Debridement -Clinical Debridement Subcutaneous -Tissue Removed Subcutaneous -Post Debridement (cm) - Length 5.0 -Post Debridement (cm) - Width 12.5 -Post Debridement (cm) - Depth 1.7 -Total Square (Post) (cm) 62.50 -Area of Debridement (cm) - Length 5.0 -Area of Debridement (cm) - Width 12.5 -Total Square (Area) (cm) 62.50 -Tunneling No -Undermining/Tunneling No -Circular Undermining No -Wound/Ulcer Outcome Not Healed -Ulcer Cleansing Rinsed/ Irrigated with Saline -Foul Odor after Cleansing No -Bioengineered Tissue No -Bleeding Controlled with Pressure -Offloading No -Treatment Response Procedure Tolerated Well -Debridement - Subq, 1st 20sq cm Yes -Debridement, SubQ, ea addt'l 20sq cm 3 or part thereof #6 R Buttocks -Time 09:48 -Correct Patient Yes -Correct Side, Site, Position Yes -Correct Procedure Yes -Procedure Performed Yes -Type of Procedure Debridement -Clinical Debridement Subcutaneous -Tissue Removed Subcutaneous -Post Debridement (cm) - Length 8.0 -Post Debridement (cm) - Width 3.3 -Post Debridement (cm) - Depth 1.7 -Total Square (Post) (cm) 26.40 -Area of Debridement (cm) - Length 8.0 -Area of Debridement (cm) - Width 3.3 -Total Square (Area) (cm) 26.40 -Tunneling No -Undermining/Tunneling No -Circular Undermining No -Ulcer Cleansing Rinsed/ Irrigated with Saline -Foul Odor after Cleansing No -Bioengineered Tissue No -Bleeding Controlled with Pressure -Offloading No -Treatment Response Procedure Tolerated Well -Debridement - Subq, 1st 20sq cm No -Debridement, SubQ, ea addt'l 20sq cm 1 or part thereof #5 L Buttocks -Time 09:49 -Correct Patient Yes -Correct Side, Site, Position Yes -Correct Procedure Yes -Procedure Performed Yes -Type of Procedure Debridement -Clinical Debridement Subcutaneous -Tissue Removed Subcutaneous -Post Debridement (cm) - Length 8.0 -Post Debridement (cm) - Width 5.0 -Post Debridement (cm) - Depth 2.5 -Total Square (Post) (cm) 40.00 -Area of Debridement (cm) - Length 8.0 -Area of Debridement (cm) - Width 5.0 -Total Square (Area) (cm) 40.00 -Tunneling No -Undermining/Tunneling No -Circular Undermining No -Ulcer Cleansing Rinsed/ Irrigated with Saline -Foul Odor after Cleansing No -Bioengineered Tissue No -Bleeding Controlled with Pressure -Offloading No -Treatment Response Procedure Tolerated Well -Debridement - Subq, 1st 20sq cm No Pain Scale: 0-10 Numeric Is Patient Pain Free? Yes WC - Nurse 3 - General Ulcer D/C NN Start: 12/14/19 13:08 Freq: Status: Active Protocol: Activity Type Activity Date Activity User E-Sign Co-Sign Detail Recorded Client Recorded Date Recorded By Document 12/14/19 13:08 HERBER [id number] 12/14/19 13:13 Document 12/18/19 13:05 HERBER [id number] 12/18/19 13:09 JF Document 12/25/19 13:49 [id number] 12/25/19 13:54 JF 12/14/19 12/18/19 12/25/19 13:08 13:05 13:49 Pain Scale: 0-10 Numeric Is Patient Pain Free? Yes WC - Visit Discharge Discharge Condition Stable Stable Stable Ambulatory Status Wheelchair Wheelchair Wheelchair Transportation Private Auto Private Auto Private Auto Accompanied by Carmen Carmen Medication Reconcilliation completed & Yes Yes Yes provided to patient/care provider Clinical Summary of Care Provided Yes Yes Yes Wound debrided: Sacral Wound Grade/Stage: Stage 4 Type of Debridement: Excisional debridement Anesthesia Used: 4% Lidocaine Solution Depth: Down to and including healthy tissue, in the subcutaneous layer Percentage of wound debrided: 100 Instrument Used: 7mm curette Tissue Removed: Slough and devitalized tissue Severity: Fat Layer Exposed Amount of bleeding with debridement: Mild Bleeding Controlled with: Pressure Patient tolerated procedure well - Additional Wound Wound debrided: Left Buttock Wound Grade/Stage: Stage IV Type of Debridement: Excisional debridement Anesthesia Used: 4% Lidocaine Solution Depth: Down to and including healthy tissue, in the subcutaneous layer Percentage of wound debrided: 100 Instrument Used: 7mm curette Tissue Removed: Slough and devitalized tissue Severity: Fat Layer Exposed Amount of bleeding with debridement: Mild Bleeding Controlled with: Pressure Patient tolerated procedure: Patient tolerated procedure well - Additional Wound Wound debrided: Right Buttock Wound Grade/Stage: Stage IV Type of Debridement: Excisional debridement Anesthesia Used: 4% Lidocaine Solution Depth: Down to and including healthy tissue, in the subcutaneous layer Percentage of wound debrided: 100 Instrument Used: 7mm curette Tissue Removed: Slough and devitalized tissue Severity: Fat Layer Exposed Amount of bleeding with debridement: Mild Bleeding Controlled with: Pressure Patient tolerated procedure: Patient tolerated procedure well Assessment/Plan Active Problems (Last Updated 12/14/19 @ 15:[address] Meena Coyne DO) Sacral decubitus ulcer, stage IV (Chronic) Decubitus ulcer of right buttock, stage 4 (Chronic) Decubitus ulcer of left buttock, stage 4 (Chronic) Chronic osteomyelitis involving pelvic region and thigh (Chronic) Paraplegia (Chronic) Assessment: Same as above. Plan: Stable ulcers. Debridement done as documented above, procedure well- tolerated. Continue 10 minute Acetic acid soak to all ulcers then calcium alginate/collagen dressing. Change daily to twice daily depending on drainage. Continue optimal dietary and protein intake. Offloading also recommended. His q uestions were answered and they were advised to call with any further questions or concerns. Follow up in 1 week. This note was generated with [employer] dictation software. It may contain incorrect words, spelling, and punctuation that were not noted in checking the note before signing. [id number]: [id number] Oxana subq tissue 20 sq cm/< Add On Codes: 05474 Oxana subq tissue add-on - Additional square centimeter debrided, please refer to clinical note.
[2019-12-27 10:01] VITALS: BP 136/81
[2019-12-27 10:06] LABS: Bedside Glucose 182 mg/dL (70-110)
[2019-12-27 11:13] VITALS: BP 138/45; BP 98/76; PULSE 86; PULSE 90; RESP 16; TEMP 36.4; TEMP 36.6
--- NOTE | 2019-12-27 12:59 | PCM.HBO.PN ---
History of Present Illness Date of Service: 12/27/19 Presenting Chief Complaint: Non healing, chronic decubitus pressure ulcers, stage IV, with osteomyelitis - thigh, buttock, sacrum. GABBI CARBAJAL is a 34 year old currently undergoing hyperbaric oxygen therapy for osteomyelitis, Stage 4 pressure ulcer sacrum, thigh, and buttock. Progress: Today is the 56th treatment of hyperbaric oxygen therapy. The patient is scheduled for 60 treatments total. Tolerance of hyperbaric oxygen therapy: Hyperbaric oxygen treatment was provided as per the facility's protocol at 2.0 KRISTEN in 100% oxygen for 90 minutes without air breaks. The patient tolerated hyperbaric oxygen well, without complications or complaints. Upon emergence of the hyperbaric chamber, the patient's vital signs remained stable. He was discharged in good condition. Pre- and post- blood sugars are documented elsewhere. Past Medical History Chronic Problems (Last Updated 12/14/19 @ 15:[address] Meena Coyne DO) Decubitus ulcer of right buttock, stage 4 (Chronic) Decubitus ulcer of left buttock, stage 4 (Chronic) Chronic osteomyelitis involving pelvic region and thigh (Chronic) Paraplegia (Chronic) Sacral decubitus ulcer, stage IV (Chronic) Decubitus ulcer of right buttock, stage 4 (Chronic) Decubitus ulcer of left buttock, stage 4 (Chronic) Chronic osteomyelitis involving pelvic region and thigh (Chronic) Paraplegia (Chronic) Allergies/Adverse Reactions: Allergies lidocaine Allergy (Verified 09/03/19 13:05) Unknown Home Medications: Ambulatory Orders Medication Instructions Recorded Sitagliptin Phosphate [Januvia] 100 mg PO DAILY 10/11/17 Baclofen 5 mg PO BID 10/12/18 Diazepam [Valium] 5 mg PO BID 10/12/18 Fentanyl 200 ea TD 10/12/18 Ferrous Sulfate 325 mg PO 10/12/18 Insulin Glargine,Hum.rec.anlog 10 unit SQ 10/12/18 [Lantus Solostar] Insulin Lispro [Humalog KwikPen] unit SQ 10/12/18 Magnesium Oxide [Magnesium] 400 mg PO BID 10/12/18 Melatonin 3 mg PO 10/12/18 Metoclopramide HCl [Reglan] 5 mg PO TID 10/12/18 Oxycodone [Oxyfast] 30 mg PO Q4H PRN 10/12/18 Pregabalin [Lyrica] 50 mg PO BID 10/12/18 Sitagliptin Phosphate [Januvia] 100 mg PO 10/12/18 traZODone [Desyrel] 50 mg PO QHS 10/12/18 Meloxicam 7.5 mg PO BID PRN 05/17/19 Methenamine Hippurate [Hiprex] 1 gm PO BID 05/17/19 Maternal Family History: No pertinent history Smoking Status: Former smoker Tobacco Use: Non-smoker Physical Exam Vital Signs Temp Pulse Resp BP 97.9 F 90 16 138/45 H 12/27/19 11:13 12/27/19 11:13 12/27/19 11:13 12/27/19 11:13 General: Alert, Oriented x3, Cooperative, No apparent distress HEENT: Atraumatic, Normocephalic Lungs: Normal air movement Psych/Mental Status: Normal Affect Assessment/Plan Active Problems (Last Updated 12/14/19 @ 15:[address] Meena Coyne, DO) Sacral decubitus ulcer, stage IV (Acute) Chronic osteomyelitis involving pelvic region and thigh (Chronic) Paraplegia (Chronic) Sacral decubitus ulcer, stage IV (Chronic) Decubitus ulcer of right buttock, stage 4 (Chronic) Decubitus ulcer of left buttock, stage 4 (Chronic) Chronic osteomyelitis involving pelvic region and thigh (Chronic) Paraplegia (Chronic) The patient appears to be tolerating hyperbaric oxygen therapy well, which will continue as per the patient's medical plan. Treatment Course Number Number of HBO Treatments 72 Ordered Treatment Course Number 1 Treatment # 56 Chamber # [id number] Chamber Type Monoplace HBO Diagnosis/Indication Diagnosis/Indication(s) for Standard/Conservative Hyperbaric Therapy Diabetes - Detail Diabetes Diabetes Type II Other - Detail Chronic Refractory Yes Osteomyelitis (specify site in comment) Compromised/Failed Flap/Graft Yes (specify site in comment) Treatment Plan KRISTEN (Atmospheric Absolute) 2 Number of Minutes 90 Number of Air Breaks 0 HBO supervision
[2019-12-27 13:20] LABS: Bedside Glucose 143 mg/dL (70-110)
[2019-12-28 10:56] LABS: Bedside Glucose 146 mg/dL (70-110)
[2019-12-28 12:55] LABS: Bedside Glucose 107 mg/dL (70-110)
[2019-12-28 13:28] VITALS: BP 106/63; BP 128/80; PULSE 72; PULSE 78; RESP 16; RESP 18; TEMP 36.4; TEMP 36.6
--- NOTE | 2019-12-28 14:33 | PCM.HBO.PN ---
History of Present Illness Date of Service: 12/28/19 Presenting Chief Complaint: Non healing, chronic decubitus pressure ulcers, stage IV, with osteomyelitis - thigh, buttock, sacrum. GABBI CARBAJAL is a 34 year old currently undergoing hyperbaric oxygen therapy for osteomyelitis, Stage 4 pressure ulcer sacrum, thigh, and buttock. Progress: Today is the 57th treatment of hyperbaric oxygen therapy. The patient is scheduled for 60 treatments total. Tolerance of hyperbaric oxygen therapy: Hyperbaric oxygen treatment was provided as per the facility's protocol at 2.0 KRISTEN in 100% oxygen for 90 minutes without air breaks. The patient tolerated hyperbaric oxygen well, without complications or complaints. Upon emergence of the hyperbaric chamber, the patient's vital signs remained stable. He was discharged in good condition. Pre- and post- blood sugars are documented elsewhere. Past Medical History Chronic Problems (Last Updated 12/14/19 @ 15:[address] Meena Coyne DO) Decubitus ulcer of right buttock, stage 4 (Chronic) Decubitus ulcer of left buttock, stage 4 (Chronic) Chronic osteomyelitis involving pelvic region and thigh (Chronic) Paraplegia (Chronic) Sacral decubitus ulcer, stage IV (Chronic) Decubitus ulcer of right buttock, stage 4 (Chronic) Decubitus ulcer of left buttock, stage 4 (Chronic) Chronic osteomyelitis involving pelvic region and thigh (Chronic) Paraplegia (Chronic) Allergies/Adverse Reactions: Allergies lidocaine Allergy (Verified 09/03/19 13:05) Unknown Home Medications: Ambulatory Orders Medication Instructions Recorded Sitagliptin Phosphate [Januvia] 100 mg PO DAILY 10/11/17 Baclofen 5 mg PO BID 10/12/18 Diazepam [Valium] 5 mg PO BID 10/12/18 Fentanyl 200 ea TD 10/12/18 Ferrous Sulfate 325 mg PO 10/12/18 Insulin Glargine,Hum.rec.anlog 10 unit SQ 10/12/18 [Lantus Solostar] Insulin Lispro [Humalog KwikPen] unit SQ 10/12/18 Magnesium Oxide [Magnesium] 400 mg PO BID 10/12/18 Melatonin 3 mg PO 10/12/18 Metoclopramide HCl [Reglan] 5 mg PO TID 10/12/18 Oxycodone [Oxyfast] 30 mg PO Q4H PRN 10/12/18 Pregabalin [Lyrica] 50 mg PO BID 10/12/18 Sitagliptin Phosphate [Januvia] 100 mg PO 10/12/18 traZODone [Desyrel] 50 mg PO QHS 10/12/18 Meloxicam 7.5 mg PO BID PRN 05/17/19 Methenamine Hippurate [Hiprex] 1 gm PO BID 05/17/19 Maternal Family History: No pertinent history Smoking Status: Former smoker Tobacco Use: Non-smoker Physical Exam Vital Signs Temp Pulse Resp BP 97.8 F 78 16 106/63 12/28/19 13:28 12/28/19 13:28 12/28/19 13:28 12/28/19 13:28 General: Alert, Oriented x3, Cooperative, No apparent distress Psych/Mental Status: Normal Affect, Appropriate Assessment/Plan Active Problems (Last Updated 12/14/19 @ 15:[address] Meena Coyne, DO) Sacral decubitus ulcer, stage IV (Acute) Chronic osteomyelitis involving pelvic region and thigh (Chronic) Paraplegia (Chronic) Sacral decubitus ulcer, stage IV (Chronic) Decubitus ulcer of right buttock, stage 4 (Chronic) Decubitus ulcer of left buttock, stage 4 (Chronic) Chronic osteomyelitis involving pelvic region and thigh (Chronic) Paraplegia (Chronic) The patient appears to be tolerating hyperbaric oxygen therapy well, which will continue as per the patient's medical plan. Treatment Course Number Number of HBO Treatments 72 Ordered Treatment Course Number 1 Treatment # 57 Chamber # 2 Chamber Type Monoplace HBO Diagnosis/Indication Diagnosis/Indication(s) for Standard/Conservative Hyperbaric Therapy Diabetes - Detail Diabetes Diabetes Type II Other - Detail Chronic Refractory Yes Osteomyelitis (specify site in comment) Compromised/Failed Flap/Graft Yes (specify site in comment) Treatment Plan KRISTEN (Atmospheric Absolute) 2.0 Number of Minutes 90 Number of Air Breaks 0
[2020-01-02 10:56] LABS: Bedside Glucose 182 mg/dL (70-110)
--- NOTE | 2020-01-02 12:47 | PCM.HBO.PN ---
History of Present Illness Date of Service: 01/02/20 Presenting Chief Complaint: Non healing, chronic decubitus pressure ulcers, stage IV, with osteomyelitis - thigh, buttock, sacrum. GABBI CARBAJAL is a 34 year old currently undergoing hyperbaric oxygen therapy for osteomyelitis, Stage 4 pressure ulcer sacrum, thigh, and buttock. Progress: Today is the 58th treatment of hyperbaric oxygen therapy. The patient is scheduled for 60 treatments total. Tolerance of hyperbaric oxygen therapy: Hyperbaric oxygen treatment was provided as per the facility's protocol at 2.0 KRISTEN in 100% oxygen for 90 minutes without air breaks. The patient tolerated hyperbaric oxygen well, without complications or complaints. Upon emergence of the hyperbaric chamber, the patient's vital signs remained stable. He was discharged in good condition. Pre- and post- blood sugars are documented elsewhere. Past Medical History Chronic Problems (Last Updated 12/14/19 @ 15:[address] Meena Coyne DO) Decubitus ulcer of right buttock, stage 4 (Chronic) Decubitus ulcer of left buttock, stage 4 (Chronic) Chronic osteomyelitis involving pelvic region and thigh (Chronic) Paraplegia (Chronic) Sacral decubitus ulcer, stage IV (Chronic) Decubitus ulcer of right buttock, stage 4 (Chronic) Decubitus ulcer of left buttock, stage 4 (Chronic) Chronic osteomyelitis involving pelvic region and thigh (Chronic) Paraplegia (Chronic) Allergies/Adverse Reactions: Allergies lidocaine Allergy (Verified 09/03/19 13:05) Unknown Home Medications: Ambulatory Orders Medication Instructions Recorded Sitagliptin Phosphate [Januvia] 100 mg PO DAILY 10/11/17 Baclofen 5 mg PO BID 10/12/18 Diazepam [Valium] 5 mg PO BID 10/12/18 Fentanyl 200 ea TD 10/12/18 Ferrous Sulfate 325 mg PO 10/12/18 Insulin Glargine,Hum.rec.anlog 10 unit SQ 10/12/18 [Lantus Solostar] Insulin Lispro [Humalog KwikPen] unit SQ 10/12/18 Magnesium Oxide [Magnesium] 400 mg PO BID 10/12/18 Melatonin 3 mg PO 10/12/18 Metoclopramide HCl [Reglan] 5 mg PO TID 10/12/18 Oxycodone [Oxyfast] 30 mg PO Q4H PRN 10/12/18 Pregabalin [Lyrica] 50 mg PO BID 10/12/18 Sitagliptin Phosphate [Januvia] 100 mg PO 10/12/18 traZODone [Desyrel] 50 mg PO QHS 10/12/18 Meloxicam 7.5 mg PO BID PRN 05/17/19 Methenamine Hippurate [Hiprex] 1 gm PO BID 05/17/19 Maternal Family History: No pertinent history Smoking Status: Former smoker Tobacco Use: Non-smoker Physical Exam Vital Signs Temp Pulse Resp BP 97.8 F 78 16 106/63 12/28/19 13:28 12/28/19 13:28 12/28/19 13:28 12/28/19 13:28 Assessment/Plan Active Problems (Last Updated 12/14/19 @ 15:[address] Meena Coyne, DO) Sacral decubitus ulcer, stage IV (Acute) Chronic osteomyelitis involving pelvic region and thigh (Chronic) Paraplegia (Chronic) Sacral decubitus ulcer, stage IV (Chronic) Decubitus ulcer of right buttock, stage 4 (Chronic) Decubitus ulcer of left buttock, stage 4 (Chronic) Chronic osteomyelitis involving pelvic region and thigh (Chronic) Paraplegia (Chronic) The patient appears to be tolerating hyperbaric oxygen therapy well, which will continue as per the patient's medical plan. Treatment Course Number Number of HBO Treatments 72 Ordered Treatment Course Number 1 Treatment # 57 Chamber # 2 Chamber Type Monoplace HBO Diagnosis/Indication Diagnosis/Indication(s) for Standard/Conservative Hyperbaric Therapy Diabetes - Detail Diabetes Diabetes Type II Other - Detail Chronic Refractory Yes Osteomyelitis (specify site in comment) Compromised/Failed Flap/Graft Yes (specify site in comment) Treatment Plan KRISTEN (Atmospheric Absolute) 2.0 Number of Minutes 90 Number of Air Breaks 0
[2020-01-02 13:06] LABS: Bedside Glucose 101 mg/dL (70-110)
[2020-01-02 17:28] VITALS: BP 100/64; BP 85/52; PULSE 80; PULSE 81; RESP 18; TEMP 36.5; TEMP 36.6
[2020-01-03 09:30] VITALS: BP 133/71; PULSE 91; RESP 16; TEMP 37; BMI 21.8
[2020-01-03 10:13] VITALS: BP 130/68; PULSE 89; RESP 18
[2020-01-03 10:51] LABS: Bedside Glucose 230 mg/dL (70-110)
[2020-01-03 12:40] LABS: Bedside Glucose 205 mg/dL (70-110)
--- NOTE | 2020-01-03 12:51 | PN.PCM_ITS ---
(1) Decubitus ulcer of left buttock, stage 4 Status: Chronic Code(s): L89.324 - Pressure ulcer of left buttock, stage 4 (2) Decubitus ulcer of right buttock, stage 4 Status: Chronic Code(s): L89.314 - Pressure ulcer of right buttock, stage 4 (3) Sacral decubitus ulcer, stage IV Status: Chronic Code(s): L89.154 - Pressure ulcer of sacral region, stage 4 (4) Sacral decubitus ulcer, stage IV Status: Acute Code(s): L89.154 - Pressure ulcer of sacral region, stage 4 (5) Chronic osteomyelitis involving pelvic region and thigh Status: Chronic Code(s): M86.659 - Other chronic osteomyelitis, unspecified thigh (6) Paraplegia Status: Chronic Code(s): G82.20 - Paraplegia, unspecified Type of Wound Date of Service: 01/03/20 Chief Complaint: Non healing, chronic decubitus pressure ulcers, stage IV, with osteomyelitis - thigh, buttock, sacrum. History of Wound: Mr. Joyce is a 33yo well known to the wound center but was last seen here over a month ago. Initial sacral ulcer was said to have started in November and Buttock ulcers were noted subsequently. He has had an extensive hospital stay over the last couple of months following a work related injury. Both during his [facility] and [facility] stays, he had wound care ranging from surgical debridement, wound vac and collagen use. He was scheduled to be restarted on his wound Vac prior to his discharge from the [facility]. He reports significant drainage from the wounds. Also of note is a history of osteomyelitis for which he was on a 6 week IV antibiotic. His however states they were informed that he had developed chronic extensive pelvic area osteomyelitis. He feels well otherwise at this time and denies chills, fever,nausea, vomitting or change in bowel habit. 02/22/2019: Above, he was last seen here over a month ago. Had an extensive hospital stay [facility] due to complications from prior neck surgery. They state that his ulcers have been stable. Been doing the acetic acid soak for 10 minutes and then calcium alginate/collagen dressings. Is any concerns at this time. Progress of Wound: No new concerns at this time. Improvement noted. - Physical Exam Vital Signs Temp Pulse Resp BP 98.6 F 89 18 130/68 H 01/03/20 09:30 01/03/20 10:13 01/03/20 10:13 01/03/20 10:13 General: Alert, Oriented x3, Cooperative, No apparent distress HEENT: Atraumatic, Normocephalic Oral: Moist Mucosa Neck: Supple Lungs: Normal air movement Extremities: No cyanosis Skin: Ulcer/ Wound Wound Measurements and Assessment WC - Nurse 1 - General Ulcer Measurement Start: 12/14/19 13:08 Freq: Status: Active Protocol: Activity Type Activity Date Activity User E-Sign Co-Sign Detail Recorded Client Recorded Date Recorded By Document 01/03/20 09:30 [facility] [id number] 01/03/20 09:45 [facility] 01/03/20 09:30 Wound Center Nurse 1 [Ulcer Assessment] #7 Sacral -Combined with other wound No -Current Size (cm) - Length 4.4 -Current Size (cm) - Width 10.8 -Current Size (cm) - Depth 1 -Total Square Cm 47.52 -Photo Taken No -Epithelialization None Present -Tunneling No -Undermining/Tunneling Yes -Undermining/Tunneling Starts (O' 10 clock) -Undermining/Tunneling Ends (O'clock) 11 -Maximum Distance (cm) 5.5 -Undermining/Tunneling Starts #2 (O' 1 clock) -Undermining/Tunneling Ends #2 (O' 3 clock) -Maximum Distance #2 (cm) 2.5 -Circular Undermining No -Exudate Amt Medium -Exudate Type Serosanguineous -Wound Margin Thickened & Rolled Under -Granulation Amt Large (67-100%) -Granulation Quality [place] -Slough/Fibrin No -Necrosis Amt None Present (0 %) -Texture (Sheyla-wound Skin Appearance) Assessed, Scarring -Moisture (Sheyla-wound Skin Appearance Assessed ) -Color (Sheyla-wound Skin Appearance) Assessed -Temperature (Sheyla-wound Skin No Abnormality Appearance) (Pt Warm) -Tenderness on Palpation (Sheyla-wound No Skin Appearance) -Ulcer Cleansing SOAPY WATER -Foul Odor after Cleansing No #6 R Buttocks -Combined with other wound No -Current Size (cm) - Length 7 -Current Size (cm) - Width 2.6 -Current Size (cm) - Depth 1.7 -Total Square Cm 18.2 -Photo Taken No -Epithelialization None Present -Tunneling No -Undermining/Tunneling Yes -Undermining/Tunneling Starts (O' 12 clock) -Undermining/Tunneling Ends (O'clock) 4 -Maximum Distance (cm) 2 -Circular Undermining No -Exudate Amt Small -Exudate Type Serosanguineous -Wound Margin Thickened -Granulation Amt Large (67-100%) -Granulation Quality Pale,[place] -Slough/Fibrin No -Necrosis Amt None Present (0 %) -Texture (Sheyla-wound Skin Appearance) Assessed, Scarring -Moisture (Sheyla-wound Skin Appearance Assessed ) -Color (Sheyla-wound Skin Appearance) Assessed -Temperature (Sheyla-wound Skin No Abnormality Appearance) (Pt Warm) -Tenderness on Palpation (Sheyla-wound No Skin Appearance) -Ulcer Cleansing SOAPY WATER -Foul Odor after Cleansing No #5 L Buttocks -Combined with other wound No -Current Size (cm) - Length 6 -Current Size (cm) - Width 4.8 -Current Size (cm) - Depth 2.2 -Total Square Cm 28.8 -Photo Taken No -Epithelialization None Present -Tunneling No -Undermining/Tunneling No -Circular Undermining No -Exudate Amt Medium -Exudate Type Serosanguineous -Wound Margin Thickened & Rolled Under -Granulation Amt Large (67-100%) -Granulation Quality Pale,[place] -Slough/Fibrin No -Necrosis Amt None Present (0 %) -Texture (Sheyla-wound Skin Appearance) Assessed, Scarring -Moisture (Sheyla-wound Skin Appearance Assessed ) -Color (Sheyla-wound Skin Appearance) Assessed -Temperature (Sheyla-wound Skin No Abnormality Appearance) (Pt Warm) -Tenderness on Palpation (Sheyla-wound No Skin Appearance) -Ulcer Cleansing SOAPY WATER -Foul Odor after Cleansing No WC - Nurse 2 - General Ulcer CM Notes Start: 12/14/19 13:08 Freq: Status: Active Protocol: Activity Type Activity Date Activity User E-Sign Co-Sign Detail Recorded Client Recorded Date Recorded By Document 01/03/20 10:01 MW [id number] 01/03/20 10:09 MW 01/03/20 10:01 Wound Center Nurse 2 [Procedure/Treatment] #7 Sacral -Time 10:04 -Correct Patient Yes -Correct Side, Site, Position Yes -Correct Procedure Yes -Procedure Performed Yes -Type of Procedure Debridement -Clinical Debridement Subcutaneous -Tissue Removed Subcutaneous -Post Debridement (cm) - Length 4.7 -Post Debridement (cm) - Width 12.5 -Post Debridement (cm) - Depth 1.3 -Total Square (Post) (cm) 58.75 -Area of Debridement (cm) - Length 4.7 -Area of Debridement (cm) - Width 12.5 -Total Square (Area) (cm) 58.75 -Tunneling No -Undermining/Tunneling No -Circular Undermining No -Wound/Ulcer Outcome Not Healed -Ulcer Cleansing Rinsed/ Irrigated with Saline -Foul Odor after Cleansing No -Bioengineered Tissue No -Bleeding Controlled with Pressure -Offloading No -Debridement - Subq, 1st 20sq cm Yes -Debridement, SubQ, ea addt'l 20sq cm 6 or part thereof #6 R Buttocks -Time 10:04 -Correct Patient Yes -Correct Side, Site, Position Yes -Correct Procedure Yes -Procedure Performed Yes -Type of Procedure Debridement -Clinical Debridement Subcutaneous -Tissue Removed Subcutaneous -Post Debridement (cm) - Length 7.2 -Post Debridement (cm) - Width 3.5 -Post Debridement (cm) - Depth 7.2 -Total Square (Post) (cm) 25.20 -Area of Debridement (cm) - Length 7.2 -Area of Debridement (cm) - Width 3.5 -Total Square (Area) (cm) 25.20 -Tunneling No -Undermining/Tunneling No -Circular Undermining No -Wound/Ulcer Outcome Not Healed -Ulcer Cleansing Rinsed/ Irrigated with Saline -Foul Odor after Cleansing No -Bioengineered Tissue No -Bleeding Controlled with Pressure -Offloading No -Treatment Response Procedure Tolerated Well -Debridement - Subq, 1st 20sq cm No #5 L Buttocks -Time 10:07 -Correct Patient Yes -Correct Side, Site, Position Yes -Correct Procedure Yes -Procedure Performed Yes -Type of Procedure Debridement -Clinical Debridement Subcutaneous -Tissue Removed Subcutaneous -Post Debridement (cm) - Length 8.0 -Post Debridement (cm) - Width 6.0 -Post Debridement (cm) - Depth 2.3 -Total Square (Post) (cm) 48.00 -Area of Debridement (cm) - Length 8.0 -Area of Debridement (cm) - Width 6.0 -Total Square (Area) (cm) 48.00 -Tunneling No -Undermining/Tunneling No -Circular Undermining No -Wound/Ulcer Outcome Not Healed -Ulcer Cleansing Rinsed/ Irrigated with Saline -Foul Odor after Cleansing No -Bioengineered Tissue No -Bleeding Controlled with Pressure -Offloading No -Debridement - Subq, 1st 20sq cm No [See Physician Procedure note for Specifics] Pain Scale: 0-10 Numeric [Pain] -Is Patient Pain Free? No - Nurse 3 - General Ulcer D/C NN Start: 12/14/19 13:08 Freq: Status: Active Protocol: Activity Type Activity Date Activity User E-Sign Co-Sign Detail Recorded Client Recorded Date Recorded By Document 01/03/20 10:13 DE [id number] 01/03/20 10:17 DE 01/03/20 10:13 Wound Care Nurse 3 [Wound Dressing] #7 Sacral -Other Dressing collagen, ca, mepilex, Vital Signs [Pulse] -Pulse Rate (60-100 beats/min) 89 -Pulse Location Monitor [Respirations] -Respiratory Rate (12-18 breaths/min) 18 -Respiratory rate source Observation [Blood Pressure] -Blood Pressure (90/60-120/80 mm Hg) 130/68 H -Blood Pressure Mean (mm Hg) 88 -Source Monitor -Position Supine -Blood Pressure Location Right Forearm - Visit Discharge [Visit Discharge Information] -Discharge Condition Stable -Ambulatory Status Wheelchair -Transportation Private Auto -Medication Reconcilliation completed No & provided to patient/care provider -Clinical Summary of Care Provided Yes Musculoskeletal: No Muscle Wasting Neurological: Cranial nerves II-XII grossly intact Psych/Mental Status: Normal Affect Debridement Note Post-Debridement Measurements/Treatment - Nurse 2 - General Ulcer CM Notes Start: 12/14/19 13:08 Freq: Status: Active Protocol: Activity Type Activity Date Activity User E-Sign Co-Sign Detail Recorded Client Recorded Date Recorded By Document 12/27/19 09:48 MW [id number] 12/27/19 09:54 MW Document 01/03/20 10:01 MW [id number] 01/03/20 10:09 MW 12/27/19 01/03/20 09:48 10:01 Wound Center Nurse 2 #7 Sacral -Time 09:48 10:04 -Correct Patient Yes Yes -Correct Side, Site, Position Yes Yes -Correct Procedure Yes Yes -Procedure Performed Yes Yes -Type of Procedure Debridement Debridement -Clinical Debridement Subcutaneous Subcutaneous -Tissue Removed Subcutaneous Subcutaneous -Post Debridement (cm) - Length 5.0 4.7 -Post Debridement (cm) - Width 12.5 12.5 -Post Debridement (cm) - Depth 1.7 1.3 -Total Square (Post) (cm) 62.50 58.75 -Area of Debridement (cm) - Length 5.0 4.7 -Area of Debridement (cm) - Width 12.5 12.5 -Total Square (Area) (cm) 62.50 58.75 -Tunneling No No -Undermining/Tunneling No No -Circular Undermining No No -Wound/Ulcer Outcome Not Healed Not Healed -Ulcer Cleansing Rinsed/ Rinsed/ Irrigated with Irrigated with Saline Saline -Foul Odor after Cleansing No No -Bioengineered Tissue No No -Bleeding Controlled with Pressure Pressure -Offloading No No -Treatment Response Procedure Tolerated Well -Debridement - Subq, 1st 20sq cm Yes Yes -Debridement, SubQ, ea addt'l 20sq cm 6 6 or part thereof #6 R Buttocks -Time 09:48 10:04 -Correct Patient Yes Yes -Correct Side, Site, Position Yes Yes -Correct Procedure Yes Yes -Procedure Performed Yes Yes -Type of Procedure Debridement Debridement -Clinical Debridement Subcutaneous Subcutaneous -Tissue Removed Subcutaneous Subcutaneous -Post Debridement (cm) - Length 8.0 7.2 -Post Debridement (cm) - Width 3.3 3.5 -Post Debridement (cm) - Depth 1.7 7.2 -Total Square (Post) (cm) 26.40 25.20 -Area of Debridement (cm) - Length 8.0 7.2 -Area of Debridement (cm) - Width 3.3 3.5 -Total Square (Area) (cm) 26.40 25.20 -Tunneling No No -Undermining/Tunneling No No -Circular Undermining No No -Wound/Ulcer Outcome Not Healed -Ulcer Cleansing Rinsed/ Rinsed/ Irrigated with Irrigated with Saline Saline -Foul Odor after Cleansing No No -Bioengineered Tissue No No -Bleeding Controlled with Pressure Pressure -Offloading No No -Treatment Response Procedure Procedure Tolerated Well Tolerated Well -Debridement - Subq, 1st 20sq cm No No #5 L Buttocks -Time 09:49 10:07 -Correct Patient Yes Yes -Correct Side, Site, Position Yes Yes -Correct Procedure Yes Yes -Procedure Performed Yes Yes -Type of Procedure Debridement Debridement -Clinical Debridement Subcutaneous Subcutaneous -Tissue Removed Subcutaneous Subcutaneous -Post Debridement (cm) - Length 8.0 8.0 -Post Debridement (cm) - Width 5.0 6.0 -Post Debridement (cm) - Depth 2.5 2.3 -Total Square (Post) (cm) 40.00 48.00 -Area of Debridement (cm) - Length 8.0 8.0 -Area of Debridement (cm) - Width 5.0 6.0 -Total Square (Area) (cm) 40.00 48.00 -Tunneling No No -Undermining/Tunneling No No -Circular Undermining No No -Wound/Ulcer Outcome Not Healed -Ulcer Cleansing Rinsed/ Rinsed/ Irrigated with Irrigated with Saline Saline -Foul Odor after Cleansing No No -Bioengineered Tissue No No -Bleeding Controlled with Pressure Pressure -Offloading No No -Treatment Response Procedure Tolerated Well -Debridement - Subq, 1st 20sq cm No No Pain Scale: 0-10 Numeric Is Patient Pain Free? Yes No WC - Nurse 3 - General Ulcer D/C NN Start: 12/14/19 13:08 Freq: Status: Active Protocol: Activity Type Activity Date Activity User E-Sign Co-Sign Detail Recorded Client Recorded Date Recorded By Document 12/14/19 13:08 [id number] 12/14/19 13:13 Document 12/18/19 13:05 JF [id number] 12/18/19 13:09 Document 12/25/19 13:49 [id number] 12/25/19 13:54 Document 12/27/19 10:01 RB [id number] 12/27/19 10:03 RB Document 12/28/19 13:28 JF [id number] 12/28/19 13:31 Document 01/03/20 10:13 MT [id number] 01/03/20 10:17 MT 12/14/19 12/18/19 12/25/19 13:08 13:05 13:49 Wound Care Nurse 3 #7 Sacral -Other Dressing #6 R Buttocks -Other Dressing -Primary Dressing Covered/Secured with #5 L Buttocks -Other Dressing -Primary Dressing Covered/Secured with Treatment Response Pulse Rate (60-100 beats/min) Pulse Location Respiratory Rate (12-18 breaths/min) Respiratory rate source Vital Signs Blood Pressure (90/60-120/80 mm Hg) Blood Pressure Mean (mm Hg) Source Position Blood Pressure Location Pain Scale: 0-10 Numeric Is Patient Pain Free? Yes WC - Visit Discharge Discharge Condition Stable Stable Stable Ambulatory Status Wheelchair Wheelchair Wheelchair Transportation Private Auto Private Auto Private Auto Accompanied by Carmen Carmen Medication Reconcilliation completed & Yes Yes Yes provided to patient/care provider Clinical Summary of Care Provided Yes Yes Yes 12/27/19 12/28/19 01/03/20 10:01 13:28 10:13 Wound Care Nurse 3 #7 Sacral -Other Dressing collagen, collagen, ca, calcuim mepilex, alginate, mepilex border adhesive #6 R Buttocks -Other Dressing collagen, calcium alginate,abd -Primary Dressing Covered/Secured with Secured with Tape #5 L Buttocks -Other Dressing collagen, calcuim alginate, abd -Primary Dressing Covered/Secured with Secured with Tape Treatment Response Procedure Tolerated Well Pulse Rate (60-100 beats/min) 89 Pulse Location Monitor Respiratory Rate (12-18 breaths/min) 18 Respiratory rate source Observation Vital Signs Blood Pressure (90/60-120/80 mm Hg) 136/81 H 130/68 H Blood Pressure Mean (mm Hg) 99 88 Source Monitor Monitor Position Supine Supine Blood Pressure Location Left Arm Right Forearm Pain Scale: 0-10 Numeric Is Patient Pain Free? Yes Yes WC - Visit Discharge Discharge Condition Stable Stable Stable Ambulatory Status Wheelchair Wheelchair Wheelchair Transportation Private Auto Private Auto Private Auto Accompanied by Carmen Medication Reconcilliation completed & No Yes No provided to patient/care provider Clinical Summary of Care Provided Yes Yes Yes Wound debrided: Sacral Wound Grade/Stage: Stage IV Type of Debridement: Excisional debridement Anesthesia Used: 4% Lidocaine Solution Depth: Down to and including healthy tissue, in the subcutaneous layer Percentage of wound debrided: 100 Instrument Used: 7mm curette Tissue Removed: Slough and devitalized tissue Severity: Fat Layer Exposed Amount of bleeding with debridement: Mild Bleeding Controlled with: Pressure Patient tolerated procedure well - Additional Wound Wound debrided: Left Buttock Wound Grade/Stage: Stage IV Type of Debridement: Excisional debridement Anesthesia Used: 4% Lidocaine Solution Depth: Down to and including healthy tissue, in the subcutaneous layer Percentage of wound debrided: 100 Instrument Used: 7mm curette Tissue Removed: Slough and devitalized tissue Severity: Fat Layer Exposed Amount of bleeding with debridement: Mild Bleeding Controlled with: Pressure Patient tolerated procedure: Patient tolerated procedure well - Additional Wound Wound debrided: Right Buttock Wound Grade/Stage: Stage IV Type of Debridement: Excisional debridement Anesthesia Used: 4% Lidocaine Solution Depth: Down to and including healthy tissue, in the subcutaneous layer Percentage of wound debrided: 100 Instrument Used: 7mm curette Tissue Removed: Slough and devitalized tissue Severity: Fat Layer Exposed Amount of bleeding with debridement: Mild Bleeding Controlled with: Pressure Patient tolerated procedure: Patient tolerated procedure well Assessment/Plan Active Problems (Last Updated 12/14/19 @ 15:[address] Meena Coyne, DO) Sacral decubitus ulcer, stage IV (Acute) Chronic osteomyelitis involving pelvic region and thigh (Chronic) Paraplegia (Chronic) Sacral decubitus ulcer, stage IV (Chronic) Decubitus ulcer of right buttock, stage 4 (Chronic) Decubitus ulcer of left buttock, stage 4 (Chronic) Chronic osteomyelitis involving pelvic region and thigh (Chronic) Paraplegia (Chronic) Assessment: Same as above. Plan: Stable ulcers. Debridement done as documented above, procedure well- tolerated. Continue 10 minute Acetic acid soak to all ulcers then calcium alginate/collagen dressing. Change daily to twice daily depending on drainage. Continue optimal dietary and protein intake. Offloading also recommended. His questions were answered and they were advised to call with any further questions or concerns. Follow up in 1 week. This note was generated with [employer] dictation software. It may contain incorrect words, spelling, and punctuation that were not noted in checking the note before signing. [id number]: [id number] Oxana subq tissue 20 sq cm/< Add On Codes: 34707 Oxana subq tissue add-on - Additional Sq Cm debrided, please refer to clinical note
--- NOTE | 2020-01-03 12:55 | PCM.HBO.PN ---
History of Present Illness Date of Service: 01/03/20 Presenting Chief Complaint: Non healing, chronic decubitus pressure ulcers, stage IV, with osteomyelitis - thigh, buttock, sacrum. GABBI CARBAJAL is a 34 year old currently undergoing hyperbaric oxygen therapy for osteomyelitis, Stage 4 pressure ulcer sacrum, thigh, and buttock. Progress: Today is the 59th treatment of hyperbaric oxygen therapy. The patient is scheduled for 60 treatments total. Tolerance of hyperbaric oxygen therapy: Hyperbaric oxygen treatment was provided as per the facility's protocol at 2.0 KRISTEN in 100% oxygen for 90 minutes without air breaks. The patient tolerated hyperbaric oxygen well, without complications or complaints. Upon emergence of the hyperbaric chamber, the patient's vital signs remained stable. He was discharged in good condition. Pre- and post- blood sugars are documented elsewhere. Past Medical History Chronic Problems (Last Updated 12/14/19 @ 15:[address] Meena Coyne DO) Decubitus ulcer of right buttock, stage 4 (Chronic) Decubitus ulcer of left buttock, stage 4 (Chronic) Chronic osteomyelitis involving pelvic region and thigh (Chronic) Paraplegia (Chronic) Sacral decubitus ulcer, stage IV (Chronic) Decubitus ulcer of right buttock, stage 4 (Chronic) Decubitus ulcer of left buttock, stage 4 (Chronic) Chronic osteomyelitis involving pelvic region and thigh (Chronic) Paraplegia (Chronic) Allergies/Adverse Reactions: Allergies lidocaine Allergy (Verified 09/03/19 13:05) Unknown Home Medications: Ambulatory Orders Medication Instructions Recorded Sitagliptin Phosphate [Januvia] 100 mg PO DAILY 10/11/17 Baclofen 5 mg PO BID 10/12/18 Diazepam [Valium] 5 mg PO BID 10/12/18 Fentanyl 200 ea TD 10/12/18 Ferrous Sulfate 325 mg PO 10/12/18 Insulin Glargine,Hum.rec.anlog 10 unit SQ 10/12/18 [Lantus Solostar] Insulin Lispro [Humalog KwikPen] unit SQ 10/12/18 Magnesium Oxide [Magnesium] 400 mg PO BID 10/12/18 Melatonin 3 mg PO 10/12/18 Metoclopramide HCl [Reglan] 5 mg PO TID 10/12/18 Oxycodone [Oxyfast] 30 mg PO Q4H PRN 10/12/18 Pregabalin [Lyrica] 50 mg PO BID 10/12/18 Sitagliptin Phosphate [Januvia] 100 mg PO 10/12/18 traZODone [Desyrel] 50 mg PO QHS 10/12/18 Meloxicam 7.5 mg PO BID PRN 05/17/19 Methenamine Hippurate [Hiprex] 1 gm PO BID 05/17/19 Maternal Family History: No pertinent history Smoking Status: Former smoker Tobacco Use: Non-smoker Physical Exam Vital Signs Temp Pulse Resp BP 98.6 F 89 18 130/68 H 01/03/20 09:30 01/03/20 10:13 01/03/20 10:13 01/03/20 10:13 General: Alert, Oriented x3, Cooperative HEENT: Atraumatic, Normocephalic Lungs: Normal air movement Psych/Mental Status: Normal Affect Assessment/Plan Active Problems (Last Updated 12/14/19 @ 15:[address] Meena Coyne, DO) Sacral decubitus ulcer, stage IV (Acute) Chronic osteomyelitis involving pelvic region and thigh (Chronic) Paraplegia (Chronic) Sacral decubitus ulcer, stage IV (Chronic) Decubitus ulcer of right buttock, stage 4 (Chronic) Decubitus ulcer of left buttock, stage 4 (Chronic) Chronic osteomyelitis involving pelvic region and thigh (Chronic) Paraplegia (Chronic) The patient appears to be tolerating hyperbaric oxygen therapy well, which will continue as per the patient's medical plan. Treatment Course Number Number of HBO Treatments 72 Ordered Treatment Course Number 1 Treatment # 59 Chamber # [id number] Chamber Type Monoplace HBO Diagnosis/Indication Diagnosis/Indication(s) for Standard/Conservative Hyperbaric Therapy Diabetes - Detail Diabetes Diabetes Type II Other - Detail Chronic Refractory Yes Osteomyelitis (specify site in comment) Compromised/Failed Flap/Graft Yes (specify site in comment) Treatment Plan KRISTEN (Atmospheric Absolute) 2.0 Number of Minutes 90 Number of Air Breaks 0 HBO Supervision
[2020-01-03 16:41] VITALS: BP 122/71; BP 123/85; PULSE 72; PULSE 91; RESP 18; TEMP 36; TEMP 36.4
[2020-01-07 10:36] LABS: Bedside Glucose 177 mg/dL (70-110)
[2020-01-07 12:29] VITALS: BP 135/61; BP 95/62; PULSE 66; PULSE 98; RESP 16; RESP 18; TEMP 36.4; TEMP 36.7
--- NOTE | 2020-01-07 13:02 | PCM.HBO.PN ---
History of Present Illness Date of Service: 01/07/20 Presenting Chief Complaint: Non healing, chronic decubitus pressure ulcers, stage IV, with osteomyelitis - thigh, buttock, sacrum. GABBI CARBAJAL is a 34 year old currently undergoing hyperbaric oxygen therapy for osteomyelitis, Stage 4 pressure ulcer sacrum, thigh, and buttock. Progress: Today is the 60th treatment of hyperbaric oxygen therapy. The patient is scheduled for 60 treatments total. Tolerance of hyperbaric oxygen therapy: Hyperbaric oxygen treatment was provided as per the facility's protocol at 2.0 KRISTEN in 100% oxygen for 90 minutes without air breaks. The patient tolerated hyperbaric oxygen well, without complications or complaints. Upon emergence of the hyperbaric chamber, the patient's vital signs remained stable. He was discharged in good condition. Pre- and post- blood sugars are documented elsewhere. Past Medical History Chronic Problems (Last Updated 12/14/19 @ 15:[address] Meena Coyne DO) Decubitus ulcer of right buttock, stage 4 (Chronic) Decubitus ulcer of left buttock, stage 4 (Chronic) Chronic osteomyelitis involving pelvic region and thigh (Chronic) Paraplegia (Chronic) Sacral decubitus ulcer, stage IV (Chronic) Decubitus ulcer of right buttock, stage 4 (Chronic) Decubitus ulcer of left buttock, stage 4 (Chronic) Chronic osteomyelitis involving pelvic region and thigh (Chronic) Paraplegia (Chronic) Allergies/Adverse Reactions: Allergies lidocaine Allergy (Verified 09/03/19 13:05) Unknown Home Medications: Ambulatory Orders Medication Instructions Recorded Sitagliptin Phosphate [Januvia] 100 mg PO DAILY 10/11/17 Baclofen 5 mg PO BID 10/12/18 Diazepam [Valium] 5 mg PO BID 10/12/18 Fentanyl 200 ea TD 10/12/18 Ferrous Sulfate 325 mg PO 10/12/18 Insulin Glargine,Hum.rec.anlog 10 unit SQ 10/12/18 [Lantus Solostar] Insulin Lispro [Humalog KwikPen] unit SQ 10/12/18 Magnesium Oxide [Magnesium] 400 mg PO BID 10/12/18 Melatonin 3 mg PO 10/12/18 Metoclopramide HCl [Reglan] 5 mg PO TID 10/12/18 Oxycodone [Oxyfast] 30 mg PO Q4H PRN 10/12/18 Pregabalin [Lyrica] 50 mg PO BID 10/12/18 Sitagliptin Phosphate [Januvia] 100 mg PO 10/12/18 traZODone [Desyrel] 50 mg PO QHS 10/12/18 Meloxicam 7.5 mg PO BID PRN 05/17/19 Methenamine Hippurate [Hiprex] 1 gm PO BID 05/17/19 Maternal Family History: No pertinent history Smoking Status: Former smoker Tobacco Use: Non-smoker Physical Exam Vital Signs Temp Pulse Resp BP 98.0 F 98 18 95/62 01/07/20 12:29 01/07/20 12:29 01/07/20 12:29 01/07/20 12:29 General: Alert, Cooperative, No apparent distress HEENT: Atraumatic, Normocephalic, TM's Clear - Tympanostomy tubes present bilaterally Lungs: Clear to auscultation, Normal air movement, No rhonchi, No wheeze, No rales Cardiovascular: Regular rate, Regular Rhythm Psych/Mental Status: Normal Affect, Appropriate Assessment/Plan Active Problems (Last Updated 12/14/19 @ 15:[address] Meena Coyne, DO) Sacral decubitus ulcer, stage IV (Acute) Chronic osteomyelitis involving pelvic region and thigh (Chronic) Paraplegia (Chronic) Sacral decubitus ulcer, stage IV (Chronic) Decubitus ulcer of right buttock, stage 4 (Chronic) Decubitus ulcer of left buttock, stage 4 (Chronic) Chronic osteomyelitis involving pelvic region and thigh (Chronic) Paraplegia (Chronic) Treatment Course Number Number of HBO Treatments 72 Ordered Treatment Course Number 1 Treatment # 60 Chamber # [id number] Chamber Type Monoplace HBO Diagnosis/Indication Diagnosis/Indication(s) for Standard/Conservative Hyperbaric Therapy Diabetes - Detail Diabetes Diabetes Type II Other - Detail Chronic Refractory Yes Osteomyelitis (specify site in comment) Compromised/Failed Flap/Graft Yes (specify site in comment) Treatment Plan KRISTEN (Atmospheric Absolute) 2 Number of Minutes 90 Number of Air Breaks 0
[2020-01-07 13:46] LABS: Bedside Glucose 130 mg/dL (70-110)
[2020-01-08 10:10] LABS: Bedside Glucose 154 mg/dL (70-110)
--- NOTE | 2020-01-08 12:14 | PCM.HBO.PN ---
History of Present Illness Date of Service: 01/08/20 Presenting Chief Complaint: Non healing, chronic decubitus pressure ulcers, stage IV, with osteomyelitis - thigh, buttock, sacrum. GABBI CARBAJAL is a 34 year old currently undergoing hyperbaric oxygen therapy for osteomyelitis, Stage 4 pressure ulcer sacrum, thigh, and buttock. Progress: Today is the 61st treatment of hyperbaric oxygen therapy. The patient appears to be tolerating well. Tolerance of hyperbaric oxygen therapy: Hyperbaric oxygen treatment was provided as per the facility's protocol at 2.0 KRISTEN in 100% oxygen for 90 minutes without air breaks. The patient tolerated hyperbaric oxygen well, without complications or complaints. Upon emergence of the hyperbaric chamber, the patient's vital signs remained stable. He was discharged in good condition. Pre- and post- blood sugars are documented elsewhere. Past Medical History Chronic Problems (Last Updated 12/14/19 @ 15:[address] Meena Coyne DO) Decubitus ulcer of right buttock, stage 4 (Chronic) Decubitus ulcer of left buttock, stage 4 (Chronic) Chronic osteomyelitis involving pelvic region and thigh (Chronic) Paraplegia (Chronic) Sacral decubitus ulcer, stage IV (Chronic) Decubitus ulcer of right buttock, stage 4 (Chronic) Decubitus ulcer of left buttock, stage 4 (Chronic) Chronic osteomyelitis involving pelvic region and thigh (Chronic) Paraplegia (Chronic) Allergies/Adverse Reactions: Allergies lidocaine Allergy (Verified 09/03/19 13:05) Unknown Home Medications: Ambulatory Orders Medication Instructions Recorded Sitagliptin Phosphate [Januvia] 100 mg PO DAILY 10/11/17 Baclofen 5 mg PO BID 10/12/18 Diazepam [Valium] 5 mg PO BID 10/12/18 Fentanyl 200 ea TD 10/12/18 Ferrous Sulfate 325 mg PO 10/12/18 Insulin Glargine,Hum.rec.anlog 10 unit SQ 10/12/18 [Lantus Solostar] Insulin Lispro [Humalog KwikPen] unit SQ 10/12/18 Magnesium Oxide [Magnesium] 400 mg PO BID 10/12/18 Melatonin 3 mg PO 10/12/18 Metoclopramide HCl [Reglan] 5 mg PO TID 10/12/18 Oxycodone [Oxyfast] 30 mg PO Q4H PRN 10/12/18 Pregabalin [Lyrica] 50 mg PO BID 10/12/18 Sitagliptin Phosphate [Januvia] 100 mg PO 10/12/18 traZODone [Desyrel] 50 mg PO QHS 10/12/18 Meloxicam 7.5 mg PO BID PRN 05/17/19 Methenamine Hippurate [Hiprex] 1 gm PO BID 05/17/19 Maternal Family History: No pertinent history Smoking Status: Former smoker Tobacco Use: Non-smoker Physical Exam Vital Signs Temp Pulse Resp BP 98.0 F 98 18 95/62 01/07/20 12:29 01/07/20 12:29 01/07/20 12:29 01/07/20 12:29 General: Alert, Oriented x3, Cooperative, No apparent distress, Well developed, Well nourished HEENT: Atraumatic, PERRLA, EOMI, Normocephalic Lungs: Normal air movement Psych/Mental Status: Normal Affect, Appropriate, Alert and oriented to time, place, person, mood and affect Assessment/Plan Active Problems (Last Updated 12/14/19 @ 15:[address] Meena Coyne, DO) Sacral decubitus ulcer, stage IV (Acute) Chronic osteomyelitis involving pelvic region and thigh (Chronic) Paraplegia (Chronic) Sacral decubitus ulcer, stage IV (Chronic) Decubitus ulcer of right buttock, stage 4 (Chronic) Decubitus ulcer of left buttock, stage 4 (Chronic) Chronic osteomyelitis involving pelvic region and thigh (Chronic) Paraplegia (Chronic) The patient appears to be tolerating hyperbaric oxygen therapy well, which will be continued as per the patient's medical plan. Treatment Course Number Number of HBO Treatments 72 Ordered Treatment Course Number 1 Treatment # 60 Chamber # [id number] Chamber Type Monoplace HBO Diagnosis/Indication Diagnosis/Indication(s) for Standard/Conservative Hyperbaric Therapy Diabetes - Detail Diabetes Diabetes Type II Other - Detail Chronic Refractory Yes Osteomyelitis (specify site in comment) Compromised/Failed Flap/Graft Yes (specify site in comment) Treatment Plan KRISTEN (Atmospheric Absolute) 2 Number of Minutes 90 Number of Air Breaks 0
[2020-01-08 12:21] LABS: Bedside Glucose 170 mg/dL (70-110)
[2020-01-08 13:31] VITALS: BP 101/73; BP 155/71; PULSE 91; PULSE 98; RESP 16; TEMP 36.6
[2020-01-09 10:31] LABS: Bedside Glucose 234 mg/dL (70-110)
--- NOTE | 2020-01-09 12:01 | PCM.HBO.PN ---
History of Present Illness Date of Service: 01/09/20 Presenting Chief Complaint: Non healing, chronic decubitus pressure ulcers, stage IV, with osteomyelitis - thigh, buttock, sacrum. GABBI CARBAJAL is a 34 year old currently undergoing hyperbaric oxygen therapy for osteomyelitis, Stage 4 pressure ulcer sacrum, thigh, and buttock. Progress: Today is the 62nd treatment of hyperbaric oxygen therapy. The patient appears to be tolerating well. Tolerance of hyperbaric oxygen therapy: Hyperbaric oxygen treatment was provided as per the facility's protocol at 2.0 KRISTEN in 100% oxygen for 90 minutes without air breaks. The patient tolerated hyperbaric oxygen well, without complications or complaints. Upon emergence of the hyperbaric chamber, the patient's vital signs remained stable. He was discharged in good condition. Pre- and post- blood sugars are documented elsewhere. Past Medical History Chronic Problems (Last Updated 12/14/19 @ 15:[address] Meena Coyne DO) Decubitus ulcer of right buttock, stage 4 (Chronic) Decubitus ulcer of left buttock, stage 4 (Chronic) Chronic osteomyelitis involving pelvic region and thigh (Chronic) Paraplegia (Chronic) Sacral decubitus ulcer, stage IV (Chronic) Decubitus ulcer of right buttock, stage 4 (Chronic) Decubitus ulcer of left buttock, stage 4 (Chronic) Chronic osteomyelitis involving pelvic region and thigh (Chronic) Paraplegia (Chronic) Allergies/Adverse Reactions: Allergies lidocaine Allergy (Verified 09/03/19 13:05) Unknown Home Medications: Ambulatory Orders Medication Instructions Recorded Sitagliptin Phosphate [Januvia] 100 mg PO DAILY 10/11/17 Baclofen 5 mg PO BID 10/12/18 Diazepam [Valium] 5 mg PO BID 10/12/18 Fentanyl 200 ea TD 10/12/18 Ferrous Sulfate 325 mg PO 10/12/18 Insulin Glargine,Hum.rec.anlog 10 unit SQ 10/12/18 [Lantus Solostar] Insulin Lispro [Humalog KwikPen] unit SQ 10/12/18 Magnesium Oxide [Magnesium] 400 mg PO BID 10/12/18 Melatonin 3 mg PO 10/12/18 Metoclopramide HCl [Reglan] 5 mg PO TID 10/12/18 Oxycodone [Oxyfast] 30 mg PO Q4H PRN 10/12/18 Pregabalin [Lyrica] 50 mg PO BID 10/12/18 Sitagliptin Phosphate [Januvia] 100 mg PO 10/12/18 traZODone [Desyrel] 50 mg PO QHS 10/12/18 Meloxicam 7.5 mg PO BID PRN 05/17/19 Methenamine Hippurate [Hiprex] 1 gm PO BID 05/17/19 Maternal Family History: No pertinent history Smoking Status: Former smoker Tobacco Use: Non-smoker Physical Exam Vital Signs Temp Pulse Resp BP 97.8 F 91 16 101/73 01/08/20 13:31 01/08/20 13:31 01/08/20 13:31 01/08/20 13:31 Assessment/Plan Active Problems (Last Updated 12/14/19 @ 15:[address] Meena Coyne, DO) Sacral decubitus ulcer, stage IV (Acute) Chronic osteomyelitis involving pelvic region and thigh (Chronic) Paraplegia (Chronic) Sacral decubitus ulcer, stage IV (Chronic) Decubitus ulcer of right buttock, stage 4 (Chronic) Decubitus ulcer of left buttock, stage 4 (Chronic) Chronic osteomyelitis involving pelvic region and thigh (Chronic) Paraplegia (Chronic) The patient appears to be tolerating hyperbaric oxygen therapy well, which will be continued as per the patient's medical plan. Treatment Course Number Number of HBO Treatments 72 Ordered Treatment Course Number 1 Treatment # 61 Chamber # 2 Chamber Type Monoplace HBO Diagnosis/Indication Diagnosis/Indication(s) for Standard/Conservative Hyperbaric Therapy Diabetes - Detail Diabetes Diabetes Type II Other - Detail Chronic Refractory Yes Osteomyelitis (specify site in comment) Compromised/Failed Flap/Graft Yes (specify site in comment) Treatment Plan KRISTEN (Atmospheric Absolute) 2 Number of Minutes 90 Number of Air Breaks 0
[2020-01-09 12:25] LABS: Bedside Glucose 149 mg/dL (70-110)
[2020-01-09 12:50] VITALS: BP 143/90; BP 172/68; PULSE 65; PULSE 71; RESP 18; TEMP 36.3; TEMP 36.4
[2020-01-10 09:40] VITALS: BP 115/55; PULSE 77; RESP 18; TEMP 36.6; BMI 21.8
[2020-01-10 10:41] LABS: Bedside Glucose 205 mg/dL (70-110)
[2020-01-10 10:43] VITALS: BP 115/55; BP 168/82; PULSE 65; PULSE 77; RESP 18; TEMP 36.4; TEMP 36.6
[2020-01-10 12:40] LABS: Bedside Glucose 117 mg/dL (70-110)
--- NOTE | 2020-01-10 12:52 | PCM.WC.PN ---
(1) Decubitus ulcer of left buttock, stage 4 Status: Chronic Code(s): L89.324 - Pressure ulcer of left buttock, stage 4 (2) Decubitus ulcer of right buttock, stage 4 Status: Chronic Code(s): L89.314 - Pressure ulcer of right buttock, stage 4 (3) Sacral decubitus ulcer, stage IV Status: Chronic Code(s): L89.154 - Pressure ulcer of sacral region, stage 4 (4) Sacral decubitus ulcer, stage IV Status: Acute Code(s): L89.154 - Pressure ulcer of sacral region, stage 4 (5) Chronic osteomyelitis involving pelvic region and thigh Status: Chronic Code(s): M86.659 - Other chronic osteomyelitis, unspecified thigh (6) Paraplegia Status: Chronic Code(s): G82.20 - Paraplegia, unspecified Type of Wound Date of Service: 01/10/20 Chief Complaint: Non healing, chronic decubitus pressure ulcers, stage IV, with osteomyelitis - thigh, buttock, sacrum. History of Wound: Mr. Joyce is a 33yo well known to the wound center but was last seen here over a month ago. Initial sacral ulcer was said to have started in November and Buttock ulcers were noted subsequently. He has had an extensive hospital stay over the last couple of months following a work related injury. Both during his [facility] and [facility] stays, he had wound care ranging from surgical debridement, wound vac and collagen use. He was scheduled to be restarted on his wound Vac prior to his discharge from the [place]. He reports significant drainage from the wounds. Also of note is a history of osteomyelitis for which he was on a 6 week IV antibiotic. His however states they were informed that he had developed chronic extensive pelvic area osteomyelitis. He feels well otherwise at this time and denies chills, fever,nausea, vomitting or change in bowel habit. 02/22/2019: Above, he was last seen here over a month ago. Had an extensive hospital stay [facility] due to complications from prior neck surgery. They state that his ulcers have been stable. Been doing the acetic acid soak for 10 minutes and then calcium alginate/collagen dressings. Is any concerns at this time. Progress of Wound: No new concerns at this time. Stable Ulcers - Physical Exam Vital Signs Temp Pulse Resp BP 98 F 77 18 115/55 L 01/10/20 10:43 01/10/20 10:43 01/10/20 10:43 01/10/20 10:43 General: Alert, Oriented x3, Cooperative, No apparent distress HEENT: Atraumatic, Normocephalic Oral: Moist Mucosa Neck: Supple Lungs: Normal air movement Extremities: No cyanosis Skin: Ulcer/ Wound Wound Measurements and Assessment WC - Nurse 1 - General Ulcer Measurement Start: 12/14/19 13:08 Freq: Status: Active Protocol: Activity Type Activity Date Activity User E-Sign Co-Sign Detail Recorded Client Recorded Date Recorded By Document 01/10/20 09:40 DL [id number] 01/10/20 09:43 DL 01/10/20 09:40 Wound Center Nurse 1 [Ulcer Assessment] #7 Sacral -Current Size (cm) - Length 5.5 -Current Size (cm) - Width 13.1 -Current Size (cm) - Depth 0.9 -Total Square Cm 72.05 -Photo Taken No -Exudate Amt Small -Exudate Type Serosanguineous -Wound Margin Thickened & Rolled Under -Granulation Amt Large (67-100%) -Granulation Quality [place],Red -Necrosis Amt None Present (0 %) -Structure Exposed N/A -Texture (Sheyla-wound Skin Appearance) Scarring -Moisture (Sheyla-wound Skin Appearance No Abnormality ) -Color (Sheyla-wound Skin Appearance) No Abnormality -Temperature (Sheyla-wound Skin No Abnormality Appearance) (Pt Warm) -Tenderness on Palpation (Sheyla-wound No Skin Appearance) -Ulcer Cleansing Wound Cleanser -Foul Odor after Cleansing No #6 R Buttocks -Current Size (cm) - Length 8.8 -Current Size (cm) - Width 3.4 -Current Size (cm) - Depth 1.5 -Total Square Cm 29.92 -Photo Taken No -Exudate Amt Small -Exudate Type Serosanguineous -Wound Margin Thickened & Rolled Under -Granulation Amt Large (67-100%) -Granulation Quality [place],Red -Necrosis Amt None Present (0 %) -Structure Exposed N/A -Texture (Sheyla-wound Skin Appearance) Scarring -Moisture (Sheyla-wound Skin Appearance No Abnormality ) -Color (Sheyla-wound Skin Appearance) No Abnormality -Temperature (Sheyla-wound Skin No Abnormality Appearance) (Pt Warm) -Tenderness on Palpation (Sheyla-wound No Skin Appearance) -Ulcer Cleansing Wound Cleanser -Foul Odor after Cleansing No #5 L Buttocks -Current Size (cm) - Length 8 -Current Size (cm) - Width 6 -Current Size (cm) - Depth 2.6 -Total Square Cm 48 -Photo Taken No -Exudate Amt Small -Exudate Type Serosanguineous -Wound Margin Thickened & Rolled Under -Granulation Amt Large (67-100%) -Granulation Quality [place],Red -Necrosis Amt None Present (0 %) -Texture (Sheyla-wound Skin Appearance) Scarring -Moisture (Sheyla-wound Skin Appearance No Abnormality ) -Color (Sheyla-wound Skin Appearance) No Abnormality -Temperature (Sheyla-wound Skin No Abnormality Appearance) (Pt Warm) -Tenderness on Palpation (Sheyla-wound No Skin Appearance) -Ulcer Cleansing Wound Cleanser -Foul Odor after Cleansing No WC - Nurse 2 - General Ulcer CM Notes Start: 12/14/19 13:08 Freq: Status: Active Protocol: Activity Type Activity Date Activity User E-Sign Co-Sign Detail Recorded Client Recorded Date Recorded By Document 01/10/20 09:57 MW [id number] 01/10/20 10:02 MW 01/10/20 09:57 Wound Center Nurse 2 [Procedure/Treatment] #7 Sacral -Time 09:57 -Correct Patient Yes -Correct Side, Site, Position Yes -Correct Procedure Yes -Procedure Performed Yes -Type of Procedure Debridement -Clinical Debridement Subcutaneous -Tissue Removed Subcutaneous -Post Debridement (cm) - Length 5.0 -Post Debridement (cm) - Width 13.0 -Post Debridement (cm) - Depth 1.4 -Total Square (Post) (cm) 65.00 -Area of Debridement (cm) - Length 5.0 -Area of Debridement (cm) - Width 13.0 -Total Square (Area) (cm) 65.00 -Tunneling No -Undermining/Tunneling No -Circular Undermining No -Wound/Ulcer Outcome Not Healed -Ulcer Cleansing Rinsed/ Irrigated with Saline -Foul Odor after Cleansing No -Bioengineered Tissue No -Bleeding Controlled with Pressure -Offloading No -Treatment Response Procedure Tolerated Well -Debridement - Subq, 1st 20sq cm Yes -Debridement, SubQ, ea addt'l 20sq cm 6 or part thereof #6 R Buttocks -Time 09:57 -Correct Patient Yes -Correct Side, Site, Position Yes -Correct Procedure Yes -Procedure Performed Yes -Type of Procedure Debridement -Clinical Debridement Subcutaneous -Tissue Removed Subcutaneous -Post Debridement (cm) - Length 7.5 -Post Debridement (cm) - Width 3.0 -Post Debridement (cm) - Depth 1.7 -Total Square (Post) (cm) 22.50 -Area of Debridement (cm) - Length 7.5 -Area of Debridement (cm) - Width 3.0 -Total Square (Area) (cm) 22.50 -Tunneling No -Undermining/Tunneling No -Circular Undermining No -Wound/Ulcer Outcome Not Healed -Ulcer Cleansing Rinsed/ Irrigated with Saline -Foul Odor after Cleansing No -Bioengineered Tissue No -Bleeding Controlled with Pressure -Offloading No -Treatment Response Procedure Tolerated Well -Debridement - Subq, 1st 20sq cm No #5 L Buttocks -Time 09:58 -Correct Patient Yes -Correct Side, Site, Position Yes -Correct Procedure Yes -Procedure Performed Yes -Type of Procedure Debridement -Clinical Debridement Subcutaneous -Tissue Removed Subcutaneous -Post Debridement (cm) - Length 8.0 -Post Debridement (cm) - Width 6.0 -Post Debridement (cm) - Depth 2.0 -Total Square (Post) (cm) 48.00 -Area of Debridement (cm) - Length 8.0 -Area of Debridement (cm) - Width 6.0 -Total Square (Area) (cm) 48.00 -Tunneling No -Undermining/Tunneling No -Circular Undermining No -Wound/Ulcer Outcome Not Healed -Ulcer Cleansing Rinsed/ Irrigated with Saline -Foul Odor after Cleansing No -Bioengineered Tissue No -Bleeding Controlled with Pressure -Offloading No -Treatment Response Procedure Tolerated Well -Debridement - Subq, 1st 20sq cm No [See Physician Procedure note for Specifics] Pain Scale: 0-10 Numeric [Pain] -Is Patient Pain Free? Yes WC - Nurse 3 - General Ulcer D/C NN Start: 12/14/19 13:08 Freq: Status: Active Protocol: Activity Type Activity Date Activity User E-Sign Co-Sign Detail Recorded Client Recorded Date Recorded By Document 01/08/20 13:31 HERBER [id number] 10/27/20 13:44 JF Document 01/10/20 10:06 BM [id number] 01/10/20 10:09 BMF 01/08/20 01/10/20 13:31 10:06 Wound Care Nurse 3 [Wound Dressing] #7 Sacral -Ulcer Cleansing Rinsed/ Irrigated with Saline -Foul Odor after Cleansing No -Primary Dressing Applied Other -Other Dressing calcium alginate, collagen, drsgs done by pts personal nurse -Primary Dressing Covered/Secured Secured with with Tape,Other -Other Covering mepilex #6 R Buttocks -Ulcer Cleansing Rinsed/ Irrigated with Saline -Foul Odor after Cleansing No -Primary Dressing Applied Other -Other Dressing collagen, alcium alginate , border drsg -Primary Dressing Covered/Secured Other with -Other Covering drsgs done by pt personal staff #5 L Buttocks -Ulcer Cleansing Rinsed/ Irrigated with Saline -Foul Odor after Cleansing No -Primary Dressing Applied Other -Other Dressing collagen, calcium alginate, border drsg -Primary Dressing Covered/Secured Other with -Other Covering drsgs done by pts own staff [Post Procedure Tolerated] -Treatment Response Procedure Tolerated Well Pain Scale: 0-10 Numeric [Pain] -Is Patient Pain Free? Yes Yes WC - Visit Discharge [Visit Discharge Information] -Discharge Condition Stable Stable -Ambulatory Status Wheelchair Wheelchair -Transportation Private Auto -Accompanied by private caregiver -Medication Reconcilliation completed Yes & provided to patient/care provider -Clinical Summary of Care Provided Yes -Notes: going to [facility] after appt. [Facility Notification] -Facility Type Home Health Musculoskeletal: No Muscle Wasting Neurological: Cranial nerves II-XII grossly intact Psych/Mental Status: Normal Affect Debridement Note Post-Debridement Measurements/Treatment WC - Nurse 2 - General Ulcer CM Notes Start: 12/14/19 13:08 Freq: Status: Active Protocol: Activity Type Activity Date Activity User E-Sign Co-Sign Detail Recorded Client Recorded Date Recorded By Document 12/27/19 09:48 MW [id number] 12/27/19 09:54 MW Document 01/03/20 10:01 MW [id number] 01/03/20 10:09 MW Document 01/10/20 09:57 MW [id number] 01/10/20 10:02 MW 12/27/19 01/03/20 01/10/20 09:48 10:01 09:57 Wound Center Nurse 2 #7 Sacral -Time 09:48 10:04 09:57 -Correct Patient Yes Yes Yes -Correct Side, Site, Position Yes Yes Yes -Correct Procedure Yes Yes Yes -Procedure Performed Yes Yes Yes -Type of Procedure Debridement Debridement Debridement -Clinical Debridement Subcutaneous Subcutaneous Subcutaneous -Tissue Removed Subcutaneous Subcutaneous Subcutaneous -Post Debridement (cm) - Length 5.0 4.7 5.0 -Post Debridement (cm) - Width 12.5 12.5 13.0 -Post Debridement (cm) - Depth 1.7 1.3 1.4 -Total Square (Post) (cm) 62.50 58.75 65.00 -Area of Debridement (cm) - Length 5.0 4.7 5.0 -Area of Debridement (cm) - Width 12.5 12.5 13.0 -Total Square (Area) (cm) 62.50 58.75 65.00 -Tunneling No No No -Undermining/Tunneling No No No -Circular Undermining No No No -Wound/Ulcer Outcome Not Healed Not Healed Not Healed -Ulcer Cleansing Rinsed/ Rinsed/ Rinsed/ Irrigated with Irrigated with Irrigated with Saline Saline Saline -Foul Odor after Cleansing No No No -Bioengineered Tissue No No No -Bleeding Controlled with Pressure Pressure Pressure -Offloading No No No -Treatment Response Procedure Procedure Tolerated Well Tolerated Well -Debridement - Subq, 1st 20sq cm Yes Yes Yes -Debridement, SubQ, ea addt'l 20sq cm 6 6 6 or part thereof #6 R Buttocks -Time 09:48 10:04 09:57 -Correct Patient Yes Yes Yes -Correct Side, Site, Position Yes Yes Yes -Correct Procedure Yes Yes Yes -Procedure Performed Yes Yes Yes -Type of Procedure Debridement Debridement Debridement -Clinical Debridement Subcutaneous Subcutaneous Subcutaneous -Tissue Removed Subcutaneous Subcutaneous Subcutaneous -Post Debridement (cm) - Length 8.0 7.2 7.5 -Post Debridement (cm) - Width 3.3 3.5 3.0 -Post Debridement (cm) - Depth 1.7 7.2 1.7 -Total Square (Post) (cm) 26.40 25.20 22.50 -Area of Debridement (cm) - Length 8.0 7.2 7.5 -Area of Debridement (cm) - Width 3.3 3.5 3.0 -Total Square (Area) (cm) 26.40 25.20 22.50 -Tunneling No No No -Undermining/Tunneling No No No -Circular Undermining No No No -Wound/Ulcer Outcome Not Healed Not Healed -Ulcer Cleansing Rinsed/ Rinsed/ Rinsed/ Irrigated with Irrigated with Irrigated with Saline Saline Saline -Foul Odor after Cleansing No No No -Bioengineered Tissue No No No -Bleeding Controlled with Pressure Pressure Pressure -Offloading No No No -Treatment Response Procedure Procedure Procedure Tolerated Well Tolerated Well Tolerated Well -Debridement - Subq, 1st 20sq cm No No No #5 L Buttocks -Time 09:49 10:07 09:58 -Correct Patient Yes Yes Yes -Correct Side, Site, Position Yes Yes Yes -Correct Procedure Yes Yes Yes -Procedure Performed Yes Yes Yes -Type of Procedure Debridement Debridement Debridement -Clinical Debridement Subcutaneous Subcutaneous Subcutaneous -Tissue Removed Subcutaneous Subcutaneous Subcutaneous -Post Debridement (cm) - Length 8.0 8.0 8.0 -Post Debridement (cm) - Width 5.0 6.0 6.0 -Post Debridement (cm) - Depth 2.5 2.3 2.0 -Total Square (Post) (cm) 40.00 48.00 48.00 -Area of Debridement (cm) - Length 8.0 8.0 8.0 -Area of Debridement (cm) - Width 5.0 6.0 6.0 -Total Square (Area) (cm) 40.00 48.00 48.00 -Tunneling No No No -Undermining/Tunneling No No No -Circular Undermining No No No -Wound/Ulcer Outcome Not Healed Not Healed -Ulcer Cleansing Rinsed/ Rinsed/ Rinsed/ Irrigated with Irrigated with Irrigated with Saline Saline Saline -Foul Odor after Cleansing No No No -Bioengineered Tissue No No No -Bleeding Controlled with Pressure Pressure Pressure -Offloading No No No -Treatment Response Procedure Procedure Tolerated Well Tolerated Well -Debridement - Subq, 1st 20sq cm No No No Pain Scale: 0-10 Numeric Is Patient Pain Free? Yes No Yes - Nurse 3 - General Ulcer D/C NN Start: 12/14/19 13:08 Freq: Status: Active Protocol: Activity Type Activity Date Activity User E-Sign Co-Sign Detail Recorded Client Recorded Date Recorded By Document 12/14/19 13:08 [id number] 12/14/19 13:13 Document 12/18/19 13:05 [id number] 12/18/19 13:09 Document 12/25/19 13:49 [id number] 12/25/19 13:54 Document 12/27/19 10:01 RB [id number] 12/27/19 10:03 RB Document 12/28/19 13:28 JF [id number] 12/28/19 13:31 Document 01/03/20 10:13 MT [id number] 01/03/20 10:17 MT Document 01/08/20 13:31 [id number] 01/08/20 13:44 Document 01/10/20 10:06 BM [id number] 01/10/20 10:09 BMF 12/14/19 12/18/19 12/25/19 13:08 13:05 13:49 Wound Care Nurse 3 #7 Sacral -Ulcer Cleansing -Foul Odor after Cleansing -Primary Dressing Applied -Other Dressing -Primary Dressing Covered/Secured with -Other Covering #6 R Buttocks -Ulcer Cleansing -Foul Odor after Cleansing -Primary Dressing Applied -Other Dressing -Primary Dressing Covered/Secured with -Other Covering #5 L Buttocks -Ulcer Cleansing -Foul Odor after Cleansing -Primary Dressing Applied -Other Dressing -Primary Dressing Covered/Secured with -Other Covering Treatment Response Pulse Rate (60-100 beats/min) Pulse Location Respiratory Rate (12-18 breaths/min) Respiratory rate source Vital Signs Blood Pressure (90/60-120/80 mm Hg) Blood Pressure Mean (mm Hg) Source Position Blood Pressure Location Pain Scale: 0-10 Numeric Is Patient Pain Free? Yes WC - Visit Discharge Discharge Condition Stable Stable Stable Ambulatory Status Wheelchair Wheelchair Wheelchair Transportation Private Auto Private Auto Private Auto Accompanied by Carmen Carmen Medication Reconcilliation completed & Yes Yes Yes provided to patient/care provider Clinical Summary of Care Provided Yes Yes Yes Notes: Facility Type 12/27/19 12/28/19 01/03/20 10:01 13:28 10:13 Wound Care Nurse 3 #7 Sacral -Ulcer Cleansing -Foul Odor after Cleansing -Primary Dressing Applied -Other Dressing collagen, collagen, ca, calcuim mepilex, alginate, mepilex border adhesive -Primary Dressing Covered/Secured with -Other Covering #6 R Buttocks -Ulcer Cleansing -Foul Odor after Cleansing -Primary Dressing Applied -Other Dressing collagen, calcium alginate,abd -Primary Dressing Covered/Secured with Secured with Tape -Other Covering #5 L Buttocks -Ulcer Cleansing -Foul Odor after Cleansing -Primary Dressing Applied -Other Dressing collagen, calcuim alginate, abd -Primary Dressing Covered/Secured with Secured with Tape -Other Covering Treatment Response Procedure Tolerated Well Pulse Rate (60-100 beats/min) 89 Pulse Location Monitor Respiratory Rate (12-18 breaths/min) 18 Respiratory rate source Observation Vital Signs Blood Pressure (90/60-120/80 mm Hg) 136/81 H 130/68 H Blood Pressure Mean (mm Hg) 99 88 Source Monitor Monitor Position Supine Supine Blood Pressure Location Left Arm Right Forearm Pain Scale: 0-10 Numeric Is Patient Pain Free? Yes Yes WC - Visit Discharge Discharge Condition Stable Stable Stable Ambulatory Status Wheelchair Wheelchair Wheelchair Transportation Private Auto Private Auto Private Auto Accompanied by Carmen Medication Reconcilliation completed & No Yes No provided to patient/care provider Clinical Summary of Care Provided Yes Yes Yes Notes: Facility Type 01/08/20 01/10/20 13:31 10:06 Wound Care Nurse 3 #7 Sacral -Ulcer Cleansing Rinsed/ Irrigated with Saline -Foul Odor after Cleansing No -Primary Dressing Applied Other -Other Dressing calcium alginate, collagen, drsgs done by pts personal nurse -Primary Dressing Covered/Secured with Secured with Tape,Other -Other Covering mepilex #6 R Buttocks -Ulcer Cleansing Rinsed/ Irrigated with Saline -Foul Odor after Cleansing No -Primary Dressing Applied Other -Other Dressing collagen, alcium alginate , border drsg -Primary Dressing Covered/Secured with Other -Other Covering drsgs done by pt personal staff #5 L Buttocks -Ulcer Cleansing Rinsed/ Irrigated with Saline -Foul Odor after Cleansing No -Primary Dressing Applied Other -Other Dressing collagen, calcium alginate, border drsg -Primary Dressing Covered/Secured with Other -Other Covering drsgs done by pts own staff Treatment Response Procedure Tolerated Well Pulse Rate (60-100 beats/min) Pulse Location Respiratory Rate (12-18 breaths/min) Respiratory rate source Vital Signs Blood Pressure (90/60-120/80 mm Hg) Blood Pressure Mean (mm Hg) Source Position Blood Pressure Location Pain Scale: 0-10 Numeric Is Patient Pain Free? Yes Yes WC - Visit Discharge Discharge Condition Stable Stable Ambulatory Status Wheelchair Wheelchair Transportation Private Auto Accompanied by private caregiver Medication Reconcilliation completed & Yes provided to patient/care provider Clinical Summary of Care Provided Yes Notes: going to [facility] after appt. Facility Type Home Health Wound debrided: Sacral Wound Grade/Stage: Stage IV Type of Debridement: Excisional debridement Anesthesia Used: 4% Lidocaine Solution Depth: Down to and including healthy tissue, in the subcutaneous layer Percentage of wound debrided: 100 Instrument Used: 5mm curette Tissue Removed: Slough and devitalized tissue Severity: Fat Layer Exposed Amount of bleeding with debridement: Mild Bleeding Controlled with: Pressure Patient tolerated procedure well - Additional Wound Wound debrided: Right Buttock Wound Grade/Stage: Stage IV Type of Debridement: Excisional debridement Anesthesia Used: 4% Lidocaine Solution Depth: Down to and including healthy tissue, in the subcutaneous layer Percentage of wound debrided: 100 Instrument Used: 5mm curette Tissue Removed: Slough and devitalized tissue Severity: Fat Layer Exposed Amount of bleeding with debridement: Mild Bleeding Controlled with: Pressure Patient tolerated procedure: Patient tolerated procedure well - Additional Wound Wound debrided: Left Buttock Wound Grade/Stage: Stage IV Type of Debridement: Excisional debridement Anesthesia Used: 4% Lidocaine Solution Depth: Down to and including healthy tissue, in the subcutaneous layer Percentage of wound debrided: 100 Instrument Used: 5mm curette Tissue Removed: Slough and devitalized tissue Severity: Fat Layer Exposed Amount of bleeding with debridement: Mild Bleeding Controlled with: Pressure Patient tolerated procedure: Patient tolerated procedure well Assessment/Plan Active Problems (Last Updated 12/14/19 @ 15:[address] Meena Coyne, DO) Sacral decubitus ulcer, stage IV (Acute) Chronic osteomyelitis involving pelvic region and thigh (Chronic) Paraplegia (Chronic) Sacral decubitus ulcer, stage IV (Chronic) Decubitus ulcer of right buttock, stage 4 (Chronic) Decubitus ulcer of left buttock, stage 4 (Chronic) Chronic osteomyelitis involving pelvic region and thigh (Chronic) Paraplegia (Chronic) Assessment: Same as above. Plan: Stable ulcers. Debridement done as documented above, procedure well-tolerated. Continue 10 minute Acetic acid soak to all ulcers then calcium alginate/collagen dressing. Change daily to twice daily depending on drainage. Continue optimal dietary and protein intake. Offloading also recommended. His questions were answered and they were advised to call with any further questions or concerns. Follow up in 1 week. This note was generated with [employer] software. It may contain incorrect words, spelling, and punctuation that were not noted in checking the note before signing. [id number]: [id number] [place] subq tissue 20 sq cm/< Add On Codes: 62964 [place] subq tissue add-on
--- NOTE | 2020-01-10 12:55 | PCM.HBO.PN ---
History of Present Illness Date of Service: 01/10/20 Presenting Chief Complaint: Non healing, chronic decubitus pressure ulcers, stage IV, with osteomyelitis - thigh, buttock, sacrum. GABBI CARBAJAL is a 34 year old currently undergoing hyperbaric oxygen therapy for osteomyelitis, Stage 4 pressure ulcer sacrum, thigh, and buttock. Progress: Today is the 623rd treatment of hyperbaric oxygen therapy. The patient appears to be tolerating well. Tolerance of hyperbaric oxygen therapy: Hyperbaric oxygen treatment was provided as per the facility's protocol at 2.0 KRISTEN in 100% oxygen for 90 minutes without air breaks. The patient tolerated hyperbaric oxygen well, without complications or complaints. Upon emergence of the hyperbaric chamber, the patient's vital signs remained stable. He was discharged in good condition. Pre- and post- blood sugars are documented elsewhere. Past Medical History Chronic Problems (Last Updated 12/14/19 @ 15:[address] Meena Coyne, ) Decubitus ulcer of right buttock, stage 4 (Chronic) Decubitus ulcer of left buttock, stage 4 (Chronic) Chronic osteomyelitis involving pelvic region and thigh (Chronic) Paraplegia (Chronic) Sacral decubitus ulcer, stage IV (Chronic) Decubitus ulcer of right buttock, stage 4 (Chronic) Decubitus ulcer of left buttock, stage 4 (Chronic) Chronic osteomyelitis involving pelvic region and thigh (Chronic) Paraplegia (Chronic) Allergies/Adverse Reactions: Allergies lidocaine Allergy (Verified 09/03/19 13:05) Unknown Home Medications: Ambulatory Orders Medication Instructions Recorded Sitagliptin Phosphate [Januvia] 100 mg PO DAILY 10/11/17 Baclofen 5 mg PO BID 10/12/18 Diazepam [Valium] 5 mg PO BID 10/12/18 Fentanyl 200 ea TD 10/12/18 Ferrous Sulfate 325 mg PO 10/12/18 Insulin Glargine,Hum.rec.anlog 10 unit SQ 10/12/18 [Lantus Solostar] Insulin Lispro [Humalog KwikPen] unit SQ 10/12/18 Magnesium Oxide [Magnesium] 400 mg PO BID 10/12/18 Melatonin 3 mg PO 10/12/18 Metoclopramide HCl [Reglan] 5 mg PO TID 10/12/18 Oxycodone [Oxyfast] 30 mg PO Q4H PRN 10/12/18 Pregabalin [Lyrica] 50 mg PO BID 10/12/18 Sitagliptin Phosphate [Januvia] 100 mg PO 10/12/18 traZODone [Desyrel] 50 mg PO QHS 10/12/18 Meloxicam 7.5 mg PO BID PRN 05/17/19 Methenamine Hippurate [Hiprex] 1 gm PO BID 05/17/19 Maternal Family History: No pertinent history Smoking Status: Former smoker Tobacco Use: Non-smoker Physical Exam Vital Signs Temp Pulse Resp BP 98 F 77 18 115/55 L 01/10/20 10:43 01/10/20 10:43 01/10/20 10:43 01/10/20 10:43 General: Alert, Oriented x3, Cooperative, No apparent distress HEENT: Atraumatic, Normocephalic Lungs: Normal air movement Psych/Mental Status: Normal Affect Assessment/Plan Active Problems (Last Updated 12/14/19 @ 15:[address] Meena Coyne, DO) Sacral decubitus ulcer, stage IV (Acute) Chronic osteomyelitis involving pelvic region and thigh (Chronic) Paraplegia (Chronic) Sacral decubitus ulcer, stage IV (Chronic) Decubitus ulcer of right buttock, stage 4 (Chronic) Decubitus ulcer of left buttock, stage 4 (Chronic) Chronic osteomyelitis involving pelvic region and thigh (Chronic) Paraplegia (Chronic) The patient appears to be tolerating hyperbaric oxygen therapy well, which will be continued as per the patient's medical plan. Treatment Course Number Number of HBO Treatments 72 Ordered Treatment Course Number 1 Treatment # 63 Chamber # [id number] Chamber Type Monoplace HBO Diagnosis/Indication Diagnosis/Indication(s) for Standard/Conservative Hyperbaric Therapy Diabetes - Detail Diabetes Diabetes Type II Other - Detail Chronic Refractory Yes Osteomyelitis (specify site in comment) Compromised/Failed Flap/Graft Yes (specify site in comment) Treatment Plan KRISTEN (Atmospheric Absolute) 2 Number of Minutes 90 Number of Air Breaks 0 HBO Supervision
[2020-01-11 10:16] LABS: Bedside Glucose 185 mg/dL (70-110)
[2020-01-11 12:35] VITALS: BP 126/80; BP 137/80; PULSE 76; PULSE 84; RESP 16; TEMP 36.2; TEMP 36.3
--- NOTE | 2020-01-11 14:56 | PCM.HBO.PN ---
History of Present Illness Date of Service: 01/11/20 Presenting Chief Complaint: Non healing, chronic decubitus pressure ulcers, stage IV, with osteomyelitis - thigh, buttock, sacrum. GABBI CARBAJAL is a 34 year old currently undergoing hyperbaric oxygen therapy for osteomyelitis, Stage 4 pressure ulcer sacrum, thigh, and buttock. Progress: Today is the 64th treatment of hyperbaric oxygen therapy. The patient appears to be tolerating well. Tolerance of hyperbaric oxygen therapy: Hyperbaric oxygen treatment was provided as per the facility's protocol at 2.0 KRISTEN in 100% oxygen for 90 minutes without air breaks. The patient tolerated hyperbaric oxygen well, without complications or complaints. Upon emergence of the hyperbaric chamber, the patient's vital signs remained stable. He was discharged in good condition. Pre- and post- blood sugars are documented elsewhere. Past Medical History Chronic Problems (Last Updated 12/14/19 @ 15:[address] Meena Coyne DO) Decubitus ulcer of right buttock, stage 4 (Chronic) Decubitus ulcer of left buttock, stage 4 (Chronic) Chronic osteomyelitis involving pelvic region and thigh (Chronic) Paraplegia (Chronic) Sacral decubitus ulcer, stage IV (Chronic) Decubitus ulcer of right buttock, stage 4 (Chronic) Decubitus ulcer of left buttock, stage 4 (Chronic) Chronic osteomyelitis involving pelvic region and thigh (Chronic) Paraplegia (Chronic) Allergies/Adverse Reactions: Allergies lidocaine Allergy (Verified 09/03/19 13:05) Unknown Home Medications: Ambulatory Orders Medication Instructions Recorded Sitagliptin Phosphate [Januvia] 100 mg PO DAILY 10/11/17 Baclofen 5 mg PO BID 10/12/18 Diazepam [Valium] 5 mg PO BID 10/12/18 Fentanyl 200 ea TD 10/12/18 Ferrous Sulfate 325 mg PO 10/12/18 Insulin Glargine,Hum.rec.anlog 10 unit SQ 10/12/18 [Lantus Solostar] Insulin Lispro [Humalog KwikPen] unit SQ 10/12/18 Magnesium Oxide [Magnesium] 400 mg PO BID 10/12/18 Melatonin 3 mg PO 10/12/18 Metoclopramide HCl [Reglan] 5 mg PO TID 10/12/18 Oxycodone [Oxyfast] 30 mg PO Q4H PRN 10/12/18 Pregabalin [Lyrica] 50 mg PO BID 10/12/18 Sitagliptin Phosphate [Januvia] 100 mg PO 10/12/18 traZODone [Desyrel] 50 mg PO QHS 10/12/18 Meloxicam 7.5 mg PO BID PRN 05/17/19 Methenamine Hippurate [Hiprex] 1 gm PO BID 05/17/19 Maternal Family History: No pertinent history Smoking Status: Former smoker Tobacco Use: Non-smoker Physical Exam Vital Signs Temp Pulse Resp BP 97.1 F L 84 16 126/80 H 01/11/20 12:35 01/11/20 12:35 01/11/20 12:35 01/11/20 12:35 General: Alert, Oriented x3, Cooperative, No apparent distress Psych/Mental Status: Normal Affect, Appropriate Assessment/Plan Active Problems (Last Updated 12/14/19 @ 15:[address] Meena Coyne, DO) Sacral decubitus ulcer, stage IV (Acute) Chronic osteomyelitis involving pelvic region and thigh (Chronic) Paraplegia (Chronic) Sacral decubitus ulcer, stage IV (Chronic) Decubitus ulcer of right buttock, stage 4 (Chronic) Decubitus ulcer of left buttock, stage 4 (Chronic) Chronic osteomyelitis involving pelvic region and thigh (Chronic) Paraplegia (Chronic) The patient appears to be tolerating hyperbaric oxygen therapy well, which will be continued as per the patient's medical plan. Treatment Course Number Number of HBO Treatments 72 Ordered Treatment Course Number 1 Treatment # 64 Chamber # 2 Chamber Type Monoplace HBO Diagnosis/Indication Diagnosis/Indication(s) for Standard/Conservative Hyperbaric Therapy Diabetes - Detail Diabetes Diabetes Type II Other - Detail Chronic Refractory Yes Osteomyelitis (specify site in comment) Compromised/Failed Flap/Graft Yes (specify site in comment) Treatment Plan KRISTEN (Atmospheric Absolute) 2 Number of Minutes 90 Number of Air Breaks 0
== END 2020-01-12 23:59 ==
LOC: WC 10:30
PROVIDERS: Nurse Practitioner Family; Visit Provider Internal Medicine
DX: L89.324 Pressure ulcer of left buttock, stage 4 (principal); L89.314 Pressure ulcer of right buttock, stage 4; L89.154 Pressure ulcer of sacral region, stage 4; G82.20 Paraplegia, unspecified; E11.69 Type 2 diabetes mellitus with other specified complication; M86.68 Other chronic osteomyelitis, other site; Z87.891 Personal history of nicotine dependence
CPT/HCPCS: 11042; 11045; 82962; 99183; G0277

== ENCOUNTER 2020-02-01 10:00 | Outpatient (RCR) | payer OTHER, SELFPAY ==
[2020-01-10 09:40] VITALS: BMI 21.8
[2020-01-13 00:26] VITALS: BP 126/80; PULSE 84; RESP 16; TEMP 36.2
[2020-01-15 10:05] LABS: Bedside Glucose 207 mg/dL (70-110)
[2020-01-15 12:20] VITALS: BP 100/60; BP 119/68; PULSE 82; PULSE 87; RESP 16; TEMP 36.2; TEMP 36.4
[2020-01-15 12:20] LABS: Bedside Glucose 131 mg/dL (70-110)
--- NOTE | 2020-01-15 14:22 | PCM.HBO.PN ---
History of Present Illness Date of Service: 01/15/20 Presenting Chief Complaint: Non healing, chronic decubitus pressure ulcers, stage IV, with osteomyelitis - thigh, buttock, sacrum. GABBI CARBAJAL is a 34 year old currently undergoing hyperbaric oxygen therapy for Stage IV pressure ulcers with osteomyelitis of the thigh, buttocks, and sacrum. Progress: This represents the 65th such session of hyperbaric oxygen therapy. The patient appears to be tolerating HBO therapy well. Tolerance of hyperbaric oxygen therapy: Hyperbaric oxygen therapy was administered as per the facility's protocol. HBO therapy was administered at 2 octavio for 90 minutes with no air breaks. The patient tolerated hyperbaric oxygen therapy well, without complaints or complications. Upon emergence from the hyperbaric chamber, the patient's vital signs remained stable. The patient was discharged in good condition. Pre- and post- blood glucose measurements are documented elsewhere. Past Medical History Chronic Problems (Last Updated 12/14/19 @ 15:[address] Meena Coyne, ) Decubitus ulcer of right buttock, stage 4 (Chronic) Decubitus ulcer of left buttock, stage 4 (Chronic) Chronic osteomyelitis involving pelvic region and thigh (Chronic) Paraplegia (Chronic) Sacral decubitus ulcer, stage IV (Chronic) Decubitus ulcer of right buttock, stage 4 (Chronic) Decubitus ulcer of left buttock, stage 4 (Chronic) Chronic osteomyelitis involving pelvic region and thigh (Chronic) Paraplegia (Chronic) Allergies/Adverse Reactions: Allergies lidocaine Allergy (Verified 09/03/19 13:05) Unknown Home Medications: Ambulatory Orders Medication Instructions Recorded Sitagliptin Phosphate [Januvia] 100 mg PO DAILY 10/11/17 Baclofen 5 mg PO BID 10/12/18 Diazepam [Valium] 5 mg PO BID 10/12/18 Fentanyl 200 ea TD 10/12/18 Ferrous Sulfate 325 mg PO 10/12/18 Insulin Glargine,Hum.rec.anlog 10 unit SQ 10/12/18 [Lantus Solostar] Insulin Lispro [Humalog KwikPen] unit SQ 10/12/18 Magnesium Oxide [Magnesium] 400 mg PO BID 10/12/18 Melatonin 3 mg PO 10/12/18 Metoclopramide HCl [Reglan] 5 mg PO TID 10/12/18 Oxycodone [Oxyfast] 30 mg PO Q4H PRN 10/12/18 Pregabalin [Lyrica] 50 mg PO BID 10/12/18 Sitagliptin Phosphate [Januvia] 100 mg PO 10/12/18 traZODone [Desyrel] 50 mg PO QHS 10/12/18 Meloxicam 7.5 mg PO BID PRN 05/17/19 Methenamine Hippurate [Hiprex] 1 gm PO BID 05/17/19 Maternal Family History: No pertinent history Smoking Status: Former smoker Tobacco Use: Non-smoker Physical Exam Vital Signs Temp Pulse Resp BP 97.1 F L 82 16 119/68 01/15/20 12:20 01/15/20 12:20 01/15/20 12:20 01/15/20 12:20 General: Alert, Oriented x3, Cooperative, No apparent distress, Well developed, Well nourished HEENT: Atraumatic, PERRLA, EOMI, Normocephalic Lungs: Normal air movement Psych/Mental Status: Normal Affect, Appropriate, Alert and oriented to time, place, person, mood and affect Assessment/Plan The patient appears to be tolerating hyperbaric oxygen therapy well, which will be continued as per the patient's medical plan. Treatment Course Number Treatment Course Number 1 Treatment # 65 Chamber # 2 Chamber Type Monoplace HBO Diagnosis/Indication Diagnosis/Indication(s) for Standard/Conservative Hyperbaric Therapy Diabetes - Detail Diabetes Diabetes Type II Other - Detail Chronic Refractory Yes Osteomyelitis (specify site in comment) Compromised/Failed Flap/Graft Yes (specify site in comment) Treatment Plan KRISTEN (Atmospheric Absolute) 2 Number of Minutes 90 Number of Air Breaks 0
[2020-01-16 10:20] LABS: Bedside Glucose 238 mg/dL (70-110)
--- NOTE | 2020-01-16 12:12 | PCM.HBO.PN ---
History of Present Illness Date of Service: 01/16/20 Presenting Chief Complaint: Non healing, chronic decubitus pressure ulcers, stage IV, with osteomyelitis - thigh, buttock, sacrum. GABBI CARBAJAL is a 34 year old currently undergoing hyperbaric oxygen therapy for Stage IV pressure ulcers with osteomyelitis of the thigh, buttocks, and sacrum. Progress: This represents the 66th such session of hyperbaric oxygen therapy. The patient appears to be tolerating HBO therapy well. Tolerance of hyperbaric oxygen therapy: Hyperbaric oxygen therapy was administered as per the facility's protocol. HBO therapy was administered at 2 octavio for 90 minutes with no air breaks. The patient tolerated hyperbaric oxygen therapy well, without complaints or complications. Upon emergence from the hyperbaric chamber, the patient's vital signs remained stable. The patient was discharged in good condition. Pre- and post- blood glucose measurements are documented elsewhere. Past Medical History Chronic Problems (Last Updated 12/14/19 @ 15:[address] Meena Coyne, ) Decubitus ulcer of right buttock, stage 4 (Chronic) Decubitus ulcer of left buttock, stage 4 (Chronic) Chronic osteomyelitis involving pelvic region and thigh (Chronic) Paraplegia (Chronic) Sacral decubitus ulcer, stage IV (Chronic) Decubitus ulcer of right buttock, stage 4 (Chronic) Decubitus ulcer of left buttock, stage 4 (Chronic) Chronic osteomyelitis involving pelvic region and thigh (Chronic) Paraplegia (Chronic) Allergies/Adverse Reactions: Allergies lidocaine Allergy (Verified 09/03/19 13:05) Unknown Home Medications: Ambulatory Orders Medication Instructions Recorded Sitagliptin Phosphate [Januvia] 100 mg PO DAILY 10/11/17 Baclofen 5 mg PO BID 10/12/18 Diazepam [Valium] 5 mg PO BID 10/12/18 Fentanyl 200 ea TD 10/12/18 Ferrous Sulfate 325 mg PO 10/12/18 Insulin Glargine,Hum.rec.anlog 10 unit SQ 10/12/18 [Lantus Solostar] Insulin Lispro [Humalog KwikPen] unit SQ 10/12/18 Magnesium Oxide [Magnesium] 400 mg PO BID 10/12/18 Melatonin 3 mg PO 10/12/18 Metoclopramide HCl [Reglan] 5 mg PO TID 10/12/18 Oxycodone [Oxyfast] 30 mg PO Q4H PRN 10/12/18 Pregabalin [Lyrica] 50 mg PO BID 10/12/18 Sitagliptin Phosphate [Januvia] 100 mg PO 10/12/18 traZODone [Desyrel] 50 mg PO QHS 10/12/18 Meloxicam 7.5 mg PO BID PRN 05/17/19 Methenamine Hippurate [Hiprex] 1 gm PO BID 05/17/19 Maternal Family History: No pertinent history Smoking Status: Former smoker Tobacco Use: Non-smoker Physical Exam Vital Signs Temp Pulse Resp BP 97.1 F L 82 16 119/68 01/15/20 12:20 01/15/20 12:20 01/15/20 12:20 01/15/20 12:20 Assessment/Plan The patient appears to be tolerating hyperbaric oxygen therapy well, which will be continued as per the patient's medical plan. Treatment Course Number Treatment Course Number 1 Treatment # 65 Chamber # 2 Chamber Type Monoplace HBO Diagnosis/Indication Diagnosis/Indication(s) for Standard/Conservative Hyperbaric Therapy Diabetes - Detail Diabetes Diabetes Type II Other - Detail Chronic Refractory Yes Osteomyelitis (specify site in comment) Compromised/Failed Flap/Graft Yes (specify site in comment) Treatment Plan KRISTEN (Atmospheric Absolute) 2 Number of Minutes 90 Number of Air Breaks 0
[2020-01-16 12:21] LABS: Bedside Glucose 132 mg/dL (70-110)
[2020-01-16 15:16] VITALS: BP 157/55; BP 158/72; PULSE 60; PULSE 87; RESP 18; TEMP 36.4
[2020-01-17 09:30] VITALS: BP 133/72; PULSE 82; RESP 16; TEMP 36.6; BMI 21.8
[2020-01-17 10:46] LABS: Bedside Glucose 102 mg/dL (70-110)
[2020-01-17 10:46] LABS: Bedside Glucose 96 mg/dL (70-110)
[2020-01-17 11:00] LABS: Bedside Glucose 91 mg/dL (70-110)
--- NOTE | 2020-01-17 12:54 | PN.PCM_ITS ---
(1) Sacral decubitus ulcer, stage IV Status: Acute Code(s): L89.154 - Pressure ulcer of sacral region, stage 4 (2) Chronic osteomyelitis involving pelvic region and thigh Status: Chronic Code(s): M86.659 - Other chronic osteomyelitis, unspecified thigh (3) Decubitus ulcer of left buttock, stage 4 Status: Chronic Code(s): L89.324 - Pressure ulcer of left buttock, stage 4 (4) Decubitus ulcer of right buttock, stage 4 Status: Chronic Code(s): L89.314 - Pressure ulcer of right buttock, stage 4 (5) Paraplegia Status: Chronic Code(s): G82.20 - Paraplegia, unspecified Type of Wound Date of Service: 01/17/20 Chief Complaint: Non healing, chronic decubitus pressure ulcers, stage IV, with osteomyelitis - thigh, buttock, sacrum. History of Wound: Mr. Joyce is a 33yo well known to the wound center but was last seen here over a month ago. Initial sacral ulcer was said to have started in November and Buttock ulcers were noted subsequently. He has had an extensive hospital stay over the last couple of months following a work related injury. Both during his hopsital and detention stays, he had wound care ranging from surgical debridement, wound vac and collagen use. He was scheduled to be restarted on his wound Vac prior to his discharge from the [place]. He reports significant drainage from the wounds. Also of note is a history of osteomyelitis for which he was on a 6 week IV antibiotic. His however states they were informed that he had developed chronic extensive pelvic area osteomyelitis. He feels well otherwise at this time and denies chills, fever,nausea, vomitting or change in bowel habit. 02/22/2019: Above, he was last seen here over a month ago. Had an extensive hospital stay [facility] due to complications from prior neck surgery. They state that his ulcers have been stable. Been doing the acetic acid soak for 10 minutes and then calcium alginate/collagen dressings. Is any concerns at this time. Progress of Wound: No new concerns at this time. Stable Ulcers - Physical Exam Vital Signs Temp Pulse Resp BP 98 F 82 16 133/72 H 01/17/20 09:30 01/17/20 09:30 01/17/20 09:30 01/17/20 09:30 General: Alert, Oriented x3, Cooperative, No apparent distress HEENT: Atraumatic, Normocephalic Oral: Moist Mucosa Neck: Supple Lungs: Normal air movement Extremities: No cyanosis Skin: Ulcer/ Wound Wound Measurements and Assessment WC - Nurse 1 - General Ulcer Measurement Start: 01/15/20 12:19 Freq: Status: Active Protocol: Activity Type Activity Date Activity User E-Sign Co-Sign Detail Recorded Client Recorded Date Recorded By Document 01/17/20 09:30 [facility] [id number] 01/17/20 09:45 [facility] 01/17/20 09:30 Wound Center Nurse 1 [Ulcer Assessment] #7 Sacral -Combined with other wound No -Current Size (cm) - Length 4.9 -Current Size (cm) - Width 11.7 -Current Size (cm) - Depth 0.5 -Total Square Cm 57.33 -Photo Taken No -Epithelialization Small 1-33% -Tunneling No -Undermining/Tunneling Yes -Undermining/Tunneling Starts (O' 1 clock) -Undermining/Tunneling Ends (O'clock) 2 -Maximum Distance (cm) 2 -Circular Undermining No -Exudate Amt Large -Exudate Type Serosanguineous -Wound Margin Thickened & Rolled Under -Granulation Amt Large (67-100%) -Granulation Quality Solana -Slough/Fibrin No -Necrosis Amt None Present (0 %) -Texture (Sheyla-wound Skin Appearance) Assessed, Scarring -Moisture (Sheyla-wound Skin Appearance Assessed ) -Color (Sheyla-wound Skin Appearance) Assessed -Temperature (Sheyla-wound Skin No Abnormality Appearance) (Pt Warm) -Tenderness on Palpation (Sheyla-wound No Skin Appearance) -Ulcer Cleansing soapy water -Foul Odor after Cleansing No #6 R Buttocks -Combined with other wound No -Current Size (cm) - Length 9 -Current Size (cm) - Width 4.5 -Current Size (cm) - Depth 1.5 -Total Square Cm 40.5 -Photo Taken No -Epithelialization Small 1-33% -Tunneling No -Undermining/Tunneling No -Circular Undermining No -Exudate Amt Large -Exudate Type Serosanguineous -Wound Margin Thickened & Rolled Under -Granulation Amt Large (67-100%) -Granulation Quality Solana -Slough/Fibrin No -Necrosis Amt None Present (0 %) -Texture (Sheyla-wound Skin Appearance) Assessed, Scarring -Moisture (Sheyla-wound Skin Appearance Assessed ) -Color (Sheyla-wound Skin Appearance) Assessed -Temperature (Sheyla-wound Skin No Abnormality Appearance) (Pt Warm) -Tenderness on Palpation (Sheyla-wound No Skin Appearance) -Ulcer Cleansing soapy water -Foul Odor after Cleansing No #5 L Buttocks -Combined with other wound No -Current Size (cm) - Length 7.3 -Current Size (cm) - Width 5.3 -Current Size (cm) - Depth 2.1 -Total Square Cm 38.69 -Photo Taken No -Epithelialization Small 1-33% -Tunneling No -Undermining/Tunneling No -Exudate Amt Medium -Exudate Type Serosanguineous -Wound Margin Thickened & Rolled Under -Granulation Amt Large (67-100%) -Granulation Quality Solana -Slough/Fibrin No -Necrosis Amt None Present (0 %) -Texture (Sheyla-wound Skin Appearance) Assessed, Scarring -Moisture (Sheyla-wound Skin Appearance Assessed ) -Color (Sheyla-wound Skin Appearance) Assessed -Temperature (Sheyla-wound Skin No Abnormality Appearance) (Pt Warm) -Tenderness on Palpation (Sheyla-wound No Skin Appearance) -Ulcer Cleansing soapy water -Foul Odor after Cleansing No WC - Nurse 2 - General Ulcer CM Notes Start: 01/15/20 12:19 Freq: Status: Active Protocol: Activity Type Activity Date Activity User E-Sign Co-Sign Detail Recorded Client Recorded Date Recorded By Document 01/17/20 09:53 MW [id number] 01/17/20 09:57 MW 01/17/20 09:53 Wound Center Nurse 2 [Procedure/Treatment] #7 Sacral -Time 09:53 -Correct Patient Yes -Correct Side, Site, Position Yes -Correct Procedure Yes -Procedure Performed Yes -Type of Procedure Debridement -Clinical Debridement Subcutaneous -Tissue Removed Subcutaneous -Post Debridement (cm) - Length 5.0 -Post Debridement (cm) - Width 13.0 -Post Debridement (cm) - Depth 1.4 -Total Square (Post) (cm) 65.00 -Area of Debridement (cm) - Length 5.0 -Area of Debridement (cm) - Width 13.0 -Total Square (Area) (cm) 65.00 -Tunneling No -Undermining/Tunneling No -Circular Undermining No -Wound/Ulcer Outcome Not Healed -Ulcer Cleansing Rinsed/ Irrigated with Saline -Foul Odor after Cleansing No -Bioengineered Tissue No -Bleeding Controlled with Pressure -Offloading No -Treatment Response Procedure Tolerated Well -Debridement - Subq, 1st 20sq cm Yes -Debridement, SubQ, ea addt'l 20sq cm 7 or part thereof #6 R Buttocks -Time 09:56 -Correct Patient Yes -Correct Side, Site, Position Yes -Correct Procedure Yes -Procedure Performed Yes -Type of Procedure Debridement -Clinical Debridement Subcutaneous -Tissue Removed Subcutaneous -Post Debridement (cm) - Length 8.0 -Post Debridement (cm) - Width 4.0 -Post Debridement (cm) - Depth 1.5 -Total Square (Post) (cm) 32.00 -Area of Debridement (cm) - Length 8.0 -Area of Debridement (cm) - Width 4.0 -Total Square (Area) (cm) 32.00 -Tunneling No -Undermining/Tunneling No -Circular Undermining No -Wound/Ulcer Outcome Not Healed -Ulcer Cleansing Rinsed/ Irrigated with Saline -Foul Odor after Cleansing No -Bioengineered Tissue No -Bleeding Controlled with Pressure -Offloading No -Treatment Response Procedure Tolerated Well -Debridement - Subq, 1st 20sq cm No #5 L Buttocks -Time 09:54 -Correct Patient Yes -Correct Side, Site, Position Yes -Correct Procedure Yes -Procedure Performed Yes -Type of Procedure Debridement -Clinical Debridement Subcutaneous -Tissue Removed Subcutaneous -Post Debridement (cm) - Length 8.0 -Post Debridement (cm) - Width 5.5 -Post Debridement (cm) - Depth 2.5 -Total Square (Post) (cm) 44.00 -Area of Debridement (cm) - Length 8.0 -Area of Debridement (cm) - Width 5.5 -Total Square (Area) (cm) 44.00 -Tunneling No -Undermining/Tunneling No -Circular Undermining No -Wound/Ulcer Outcome Not Healed -Ulcer Cleansing Rinsed/ Irrigated with Saline -Foul Odor after Cleansing No -Bioengineered Tissue No -Bleeding Controlled with Pressure -Offloading No -Treatment Response Procedure Tolerated Well -Debridement - Subq, 1st 20sq cm No [See Physician Procedure note for Specifics] Pain Scale: 0-10 Numeric [Pain] -Is Patient Pain Free? Yes - Nurse 3 - General Ulcer D/C NN Start: 01/15/20 12:19 Freq: Status: Active Protocol: Activity Type Activity Date Activity User E-Sign Co-Sign Detail Recorded Client Recorded Date Recorded By Document 01/15/20 12:20 [id number] 01/15/20 12:23 Document 01/17/20 10:07 [facility] [id number] 01/17/20 10:12 [facility] 01/15/20 01/17/20 12:20 10:07 Wound Care Nurse 3 [Wound Dressing] #7 Sacral -Other Dressing MEPILEX -Primary Dressing Covered/Secured Dry Gauze, with Secured with Tape #6 R Buttocks -Other Dressing abd -Primary Dressing Covered/Secured Dry Gauze, with Secured with Tape #5 L Buttocks -Other Dressing abd -Primary Dressing Covered/Secured Dry Gauze, with Secured with Tape -Is Patient Pain Free? Yes - Visit Discharge [Visit Discharge Information] -Discharge Condition Stable Stable -Ambulatory Status Wheelchair Wheelchair -Transportation Private Auto -Accompanied by Radha -Medication Reconcilliation completed Yes No & provided to patient/care provider -Clinical Summary of Care Provided Yes Yes -Notes: HBO AFTER Musculoskeletal: No Muscle Wasting Neurological: Cranial nerves II-XII grossly intact Psych/Mental Status: Normal Affect Debridement Note Post-Debridement Measurements/Treatment - Nurse 2 - General Ulcer CM Notes Start: 01/15/20 12:19 Freq: Status: Active Protocol: Activity Type Activity Date Activity User E-Sign Co-Sign Detail Recorded Client Recorded Date Recorded By Document 01/17/20 09:53 MW [id number] 01/17/20 09:57 MW 01/17/20 09:53 Wound Center Nurse 2 #7 Sacral -Time 09:53 -Correct Patient Yes -Correct Side, Site, Position Yes -Correct Procedure Yes -Procedure Performed Yes -Type of Procedure Debridement -Clinical Debridement Subcutaneous -Tissue Removed Subcutaneous -Post Debridement (cm) - Length 5.0 -Post Debridement (cm) - Width 13.0 -Post Debridement (cm) - Depth 1.4 -Total Square (Post) (cm) 65.00 -Area of Debridement (cm) - Length 5.0 -Area of Debridement (cm) - Width 13.0 -Total Square (Area) (cm) 65.00 -Tunneling No -Undermining/Tunneling No -Circular Undermining No -Wound/Ulcer Outcome Not Healed -Ulcer Cleansing Rinsed/ Irrigated with Saline -Foul Odor after Cleansing No -Bioengineered Tissue No -Bleeding Controlled with Pressure -Offloading No -Treatment Response Procedure Tolerated Well -Debridement - Subq, 1st 20sq cm Yes -Debridement, SubQ, ea addt'l 20sq cm 7 or part thereof #6 R Buttocks -Time 09:56 -Correct Patient Yes -Correct Side, Site, Position Yes -Correct Procedure Yes -Procedure Performed Yes -Type of Procedure Debridement -Clinical Debridement Subcutaneous -Tissue Removed Subcutaneous -Post Debridement (cm) - Length 8.0 -Post Debridement (cm) - Width 4.0 -Post Debridement (cm) - Depth 1.5 -Total Square (Post) (cm) 32.00 -Area of Debridement (cm) - Length 8.0 -Area of Debridement (cm) - Width 4.0 -Total Square (Area) (cm) 32.00 -Tunneling No -Undermining/Tunneling No -Circular Undermining No -Wound/Ulcer Outcome Not Healed -Ulcer Cleansing Rinsed/ Irrigated with Saline -Foul Odor after Cleansing No -Bioengineered Tissue No -Bleeding Controlled with Pressure -Offloading No -Treatment Response Procedure Tolerated Well -Debridement - Subq, 1st 20sq cm No #5 L Buttocks -Time 09:54 -Correct Patient Yes -Correct Side, Site, Position Yes -Correct Procedure Yes -Procedure Performed Yes -Type of Procedure Debridement -Clinical Debridement Subcutaneous -Tissue Removed Subcutaneous -Post Debridement (cm) - Length 8.0 -Post Debridement (cm) - Width 5.5 -Post Debridement (cm) - Depth 2.5 -Total Square (Post) (cm) 44.00 -Area of Debridement (cm) - Length 8.0 -Area of Debridement (cm) - Width 5.5 -Total Square (Area) (cm) 44.00 -Tunneling No -Undermining/Tunneling No -Circular Undermining No -Wound/Ulcer Outcome Not Healed -Ulcer Cleansing Rinsed/ Irrigated with Saline -Foul Odor after Cleansing No -Bioengineered Tissue No -Bleeding Controlled with Pressure -Offloading No -Treatment Response Procedure Tolerated Well -Debridement - Subq, 1st 20sq cm No Pain Scale: 0-10 Numeric Is Patient Pain Free? Yes - Nurse 3 - General Ulcer D/C NN Start: 01/15/20 12:19 Freq: Status: Active Protocol: Activity Type Activity Date Activity User E-Sign Co-Sign Detail Recorded Client Recorded Date Recorded By Document 01/15/20 12:20 [id number] 01/15/20 12:23 Document 01/17/20 10:07 [facility] [id number] 01/17/20 10:12 [facility] 01/15/20 01/17/20 12:20 10:07 Wound Care Nurse 3 #7 Sacral -Other Dressing MEPILEX -Primary Dressing Covered/Secured with Dry Gauze, Secured with Tape #6 R Buttocks -Other Dressing abd -Primary Dressing Covered/Secured with Dry Gauze, Secured with Tape #5 L Buttocks -Other Dressing abd -Primary Dressing Covered/Secured with Dry Gauze, Secured with Tape Is Patient Pain Free? Yes - Visit Discharge Discharge Condition Stable Stable Ambulatory Status Wheelchair Wheelchair Transportation Private Auto Accompanied by Radha Medication Reconcilliation completed & Yes No provided to patient/care provider Clinical Summary of Care Provided Yes Yes Notes: HBO AFTER Wound debrided: Sacral Type of Debridement: Excisional debridement Anesthesia Used: 4% Lidocaine Solution Depth: Down to and including healthy tissue, in the subcutaneous layer Percentage of wound debrided: 100 Instrument Used: 5mm curette Tissue Removed: Slough and devitalized tissue Severity: Fat Layer Exposed Amount of bleeding with debridement: Mild Bleeding Controlled with: Pressure Patient tolerated procedure well - Additional Wound Wound debrided: Right Buttock Type of Debridement: Excisional debridement Anesthesia Used: 4% Lidocaine Solution Depth: Down to and including healthy tissue, in the subcutaneous layer Percentage of wound debrided: 100 Instrument Used: 5mm curette Tissue Removed: Slough and devitalized tissue Severity: Fat Layer Exposed Amount of bleeding with debridement: Mild Bleeding Controlled with: Pressure Patient tolerated procedure: Patient tolerated procedure well - Additional Wound Wound debrided: Left Buttock Type of Debridement: Excisional debridement Anesthesia Used: 4% Lidocaine Solution Depth: Down to and including healthy tissue, in the subcutaneous layer Percentage of wound debrided: 100 Instrument Used: 5mm curette Tissue Removed: Slough and devitalized tissue Severity: Fat Layer Exposed Amount of bleeding with debridement: Mild Bleeding Controlled with: Pressure Patient tolerated procedure: Patient tolerated procedure well Assessment/Plan Assessment: Same as above. Plan: Stable ulcers. Debridement done as documented above, procedure well- tolerated. Continue 10 minute Acetic acid soak to all ulcers then calcium alginate/collagen dressing. Change daily to twice daily depending on drainage. Continue optimal dietary and protein intake. Offloading also recommended. His questions were answered and they were advised to call with any further questions or concerns. Follow up in 1 week. This note was generated with [employer] dictation software. It may contain incorrect words, spelling, and punctuation that were not noted in checking the note before signing. [id number]: [id number] Oxana subq tissue 20 sq cm/< Add On Codes: 08995 Oxana subq tissue add-on
[2020-01-21 10:46] LABS: Bedside Glucose 197 mg/dL (70-110)
[2020-01-21 11:34] VITALS: BP 116/57; BP 136/62; PULSE 69; PULSE 87; RESP 16; RESP 18; TEMP 36.1; TEMP 36.6
--- NOTE | 2020-01-21 12:34 | PCM.HBO.PN ---
History of Present Illness Date of Service: 01/21/20 Presenting Chief Complaint: Non healing, chronic decubitus pressure ulcers, stage IV, with osteomyelitis - thigh, buttock, sacrum. GABBI CARBAJAL is a 34 year old currently undergoing hyperbaric oxygen therapy for Stage IV pressure ulcers with osteomyelitis of the thigh, buttocks, and sacrum. Progress: This represents the 67th such session of hyperbaric oxygen therapy. The patient appears to be tolerating HBO therapy well. Tolerance of hyperbaric oxygen therapy: Hyperbaric oxygen therapy was administered as per the facility's protocol. HBO therapy was administered at 2 octavio for 90 minutes with no air breaks. The patient tolerated hyperbaric oxygen therapy well, without complaints or complications. Upon emergence from the hyperbaric chamber, the patient's vital signs remained stable. The patient was discharged in good condition. Pre- and post- blood glucose measurements are documented elsewhere. Past Medical History Chronic Problems (Last Updated 12/14/19 @ 15:[address] Meena Coyne, ) Decubitus ulcer of right buttock, stage 4 (Chronic) Decubitus ulcer of left buttock, stage 4 (Chronic) Chronic osteomyelitis involving pelvic region and thigh (Chronic) Paraplegia (Chronic) Sacral decubitus ulcer, stage IV (Chronic) Decubitus ulcer of right buttock, stage 4 (Chronic) Decubitus ulcer of left buttock, stage 4 (Chronic) Chronic osteomyelitis involving pelvic region and thigh (Chronic) Paraplegia (Chronic) Allergies/Adverse Reactions: Allergies lidocaine Allergy (Verified 09/03/19 13:05) Unknown Home Medications: Ambulatory Orders Medication Instructions Recorded Sitagliptin Phosphate [Januvia] 100 mg PO DAILY 10/11/17 Baclofen 5 mg PO BID 10/12/18 Diazepam [Valium] 5 mg PO BID 10/12/18 Fentanyl 200 ea TD 10/12/18 Ferrous Sulfate 325 mg PO 10/12/18 Insulin Glargine,Hum.rec.anlog 10 unit SQ 10/12/18 [Lantus Solostar] Insulin Lispro [Humalog KwikPen] unit SQ 10/12/18 Magnesium Oxide [Magnesium] 400 mg PO BID 10/12/18 Melatonin 3 mg PO 10/12/18 Metoclopramide HCl [Reglan] 5 mg PO TID 10/12/18 Oxycodone [Oxyfast] 30 mg PO Q4H PRN 10/12/18 Pregabalin [Lyrica] 50 mg PO BID 10/12/18 Sitagliptin Phosphate [Januvia] 100 mg PO 10/12/18 traZODone [Desyrel] 50 mg PO QHS 10/12/18 Meloxicam 7.5 mg PO BID PRN 05/17/19 Methenamine Hippurate [Hiprex] 1 gm PO BID 05/17/19 Maternal Family History: No pertinent history Smoking Status: Former smoker Tobacco Use: Non-smoker Physical Exam Vital Signs Temp Pulse Resp BP 97 F L 69 18 116/57 L 01/21/20 11:34 01/21/20 11:34 01/21/20 11:34 01/21/20 11:34 General: Alert, Oriented x3, Cooperative, No apparent distress HEENT: Atraumatic, TM's Clear Lungs: Clear to auscultation, Normal air movement Cardiovascular: Regular rate, Regular Rhythm Psych/Mental Status: Normal Affect, Appropriate, Alert and oriented to time, place, person, mood and affect Assessment/Plan Active Problems (Last Updated 12/14/19 @ 15:[address] Meena Coyne, DO) Sacral decubitus ulcer, stage IV (Acute) Decubitus ulcer of right buttock, stage 4 (Chronic) Decubitus ulcer of left buttock, stage 4 (Chronic) Chronic osteomyelitis involving pelvic region and thigh (Chronic) Paraplegia (Chronic) Treatment Course Number Number of HBO Treatments 86 Ordered Treatment Course Number 1 Treatment # 67 Chamber # [id number] Chamber Type Monoplace HBO Diagnosis/Indication Diagnosis/Indication(s) for Standard/Conservative Hyperbaric Therapy Diabetes - Detail Diabetes Diabetes Type II Other - Detail Chronic Refractory Yes Osteomyelitis (specify site in comment) Compromised/Failed Flap/Graft Yes (specify site in comment) 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
[2020-01-21 12:46] LABS: Bedside Glucose 85 mg/dL (70-110)
[2020-01-23 11:02] VITALS: BP 102/63; BP 116/44; PULSE 85; PULSE 91; RESP 16; RESP 17; TEMP 36.1; TEMP 36.5
[2020-01-23 12:00] LABS: Bedside Glucose 254 mg/dL (70-110)
[2020-01-23 12:00] LABS: Bedside Glucose 233 mg/dL (70-110)
[2020-01-23 12:00] LABS: Bedside Glucose 265 mg/dL (70-110)
--- NOTE | 2020-01-23 12:08 | PCM.HBO.PN ---
History of Present Illness Date of Service: 01/23/20 Presenting Chief Complaint: Non healing, chronic decubitus pressure ulcers, stage IV, with osteomyelitis - thigh, buttock, sacrum. GABBI CARBAJAL is a 34 year old currently undergoing hyperbaric oxygen therapy for Stage IV pressure ulcers with osteomyelitis of the thigh, buttocks, and sacrum. Progress: This represents the 68th such session of hyperbaric oxygen therapy. The patient appears to be tolerating HBO therapy well. Tolerance of hyperbaric oxygen therapy: Hyperbaric oxygen therapy was administered as per the facility's protocol. HBO therapy was administered at 2 octavio for 90 minutes with no air breaks. The patient tolerated hyperbaric oxygen therapy well, without complaints or complications. Upon emergence from the hyperbaric chamber, the patient's vital signs remained stable. The patient was discharged in good condition. Pre- and post- blood glucose measurements are documented elsewhere. Past Medical History Chronic Problems (Last Updated 12/14/19 @ 15:[address] Meena Coyne, ) Decubitus ulcer of right buttock, stage 4 (Chronic) Decubitus ulcer of left buttock, stage 4 (Chronic) Chronic osteomyelitis involving pelvic region and thigh (Chronic) Paraplegia (Chronic) Sacral decubitus ulcer, stage IV (Chronic) Decubitus ulcer of right buttock, stage 4 (Chronic) Decubitus ulcer of left buttock, stage 4 (Chronic) Chronic osteomyelitis involving pelvic region and thigh (Chronic) Paraplegia (Chronic) Allergies/Adverse Reactions: Allergies lidocaine Allergy (Verified 09/03/19 13:05) Unknown Home Medications: Ambulatory Orders Medication Instructions Recorded Sitagliptin Phosphate [Januvia] 100 mg PO DAILY 10/11/17 Baclofen 5 mg PO BID 10/12/18 Diazepam [Valium] 5 mg PO BID 10/12/18 Fentanyl 200 ea TD 10/12/18 Ferrous Sulfate 325 mg PO 10/12/18 Insulin Glargine,Hum.rec.anlog 10 unit SQ 10/12/18 [Lantus Solostar] Insulin Lispro [Humalog KwikPen] unit SQ 10/12/18 Magnesium Oxide [Magnesium] 400 mg PO BID 10/12/18 Melatonin 3 mg PO 10/12/18 Metoclopramide HCl [Reglan] 5 mg PO TID 10/12/18 Oxycodone [Oxyfast] 30 mg PO Q4H PRN 10/12/18 Pregabalin [Lyrica] 50 mg PO BID 10/12/18 Sitagliptin Phosphate [Januvia] 100 mg PO 10/12/18 traZODone [Desyrel] 50 mg PO QHS 10/12/18 Meloxicam 7.5 mg PO BID PRN 05/17/19 Methenamine Hippurate [Hiprex] 1 gm PO BID 05/17/19 Maternal Family History: No pertinent history Smoking Status: Former smoker Tobacco Use: Non-smoker Physical Exam Vital Signs Temp Pulse Resp BP 97.7 F L 91 17 102/63 01/23/20 11:02 01/23/20 11:02 01/23/20 11:02 01/23/20 11:02 Assessment/Plan Active Problems (Last Updated 12/14/19 @ 15:[address] Meena Coyne, DO) Sacral decubitus ulcer, stage IV (Acute) Decubitus ulcer of right buttock, stage 4 (Chronic) Decubitus ulcer of left buttock, stage 4 (Chronic) Chronic osteomyelitis involving pelvic region and thigh (Chronic) Paraplegia (Chronic) The patient appears to be tolerating hyperbaric oxygen therapy well, which will be continued as per the patient's medical plan. 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
[2020-01-23 13:25] LABS: Bedside Glucose 97 mg/dL (70-110)
[2020-01-24 09:27] VITALS: BP 113/65; PULSE 80; RESP 18; TEMP 36.6; BMI 21.8
[2020-01-24 10:20] LABS: Bedside Glucose 201 mg/dL (70-110)
--- NOTE | 2020-01-24 11:01 | PN.PCM_ITS ---
(1) Sacral decubitus ulcer, stage IV Status: Acute Code(s): L89.154 - Pressure ulcer of sacral region, stage 4 (2) Chronic osteomyelitis involving pelvic region and thigh Status: Chronic Code(s): M86.659 - Other chronic osteomyelitis, unspecified thigh (3) Decubitus ulcer of left buttock, stage 4 Status: Chronic Code(s): L89.324 - Pressure ulcer of left buttock, stage 4 (4) Decubitus ulcer of right buttock, stage 4 Status: Chronic Code(s): L89.314 - Pressure ulcer of right buttock, stage 4 (5) Paraplegia Status: Chronic Code(s): G82.20 - Paraplegia, unspecified Type of Wound Date of Service: 01/24/20 Chief Complaint: Non healing, chronic decubitus pressure ulcers, stage IV, with osteomyelitis - thigh, buttock, sacrum. History of Wound: Mr. Joyce is a 33yo well known to the wound center but was last seen here over a month ago. Initial sacral ulcer was said to have started in November and Buttock ulcers were noted subsequently. He has had an extensive hospital stay over the last couple of months following a work related injury. Both during his hopsital and group home stays, he had wound care ranging from surgical debridement, wound vac and collagen use. He was scheduled to be restarted on his wound Vac prior to his discharge from the [facility]. He reports significant drainage from the wounds. Also of note is a history of osteomyelitis for which he was on a 6 week IV antibiotic. His however states they were informed that he had developed chronic extensive pelvic area osteomyelitis. He feels well otherwise at this time and denies chills, fever,nausea, vomitting or change in bowel habit. 02/22/2019: Above, he was last seen here over a month ago. Had an extensive hospital stay [facility] due to complications from prior neck surgery. They state that his ulcers have been stable. Been doing the acetic acid soak for 10 minutes and then calcium alginate/collagen dressings. Is any concerns at this time. Progress of Wound: Left buttock ulcer tenderness. Increased drainage noted as well. - Physical Exam Vital Signs Temp Pulse Resp BP 98 F 80 18 113/65 01/24/20 09:27 01/24/20 09:27 01/24/20 09:27 01/24/20 09:27 General: Alert, Oriented x3, Cooperative, No apparent distress HEENT: Atraumatic, Normocephalic Oral: Moist Mucosa Neck: Supple Lungs: Normal air movement Abdomen: Non Tender, Obese Extremities: No cyanosis Skin: Ulcer/ Wound Wound Measurements and Assessment WC - Nurse 1 - General Ulcer Measurement Start: 01/15/20 12:19 Freq: Status: Active Protocol: Activity Type Activity Date Activity User E-Sign Co-Sign Detail Recorded Client Recorded Date Recorded By Document 01/24/20 09:27 RB [id number] 01/24/20 09:37 RB 01/24/20 09:27 Wound Center Nurse 1 [Ulcer Assessment] #7 Sacral -Combined with other wound No -Current Size (cm) - Length 6 -Current Size (cm) - Width 13.4 -Current Size (cm) - Depth 0.7 -Total Square Cm 80.4 -Undermining/Tunneling Yes -Undermining/Tunneling Starts (O' 10 clock) -Undermining/Tunneling Ends (O'clock) 11 -Maximum Distance (cm) 5.2 -Undermining/Tunneling Starts #2 (O' 1 clock) -Undermining/Tunneling Ends #2 (O' 2 clock) -Maximum Distance #2 (cm) 2.1 -Circular Undermining No -Exudate Amt Large -Exudate Type Serosanguineous -Wound Margin Thickened & Rolled Under -Granulation Amt Large (67-100%) -Granulation Quality [place],Red -Slough/Fibrin Yes -Necrosis Amt Small (1-33%) -Necrotic Tissue Type Adherent Slough -Structure Exposed N/A -Texture (Sheyla-wound Skin Appearance) Assessed, Scarring -Moisture (Sheyla-wound Skin Appearance Assessed ) -Color (Sheyla-wound Skin Appearance) Assessed -Temperature (Sheyla-wound Skin No Abnormality Appearance) (Pt Warm) -Tenderness on Palpation (Sheyla-wound No Skin Appearance) -Ulcer Cleansing Wound Cleanser -Foul Odor after Cleansing No #6 R Buttocks -Combined with other wound No -Current Size (cm) - Length 8.9 -Current Size (cm) - Width 4 -Current Size (cm) - Depth 1.1 -Total Square Cm 35.6 -Tunneling No -Undermining/Tunneling No -Circular Undermining No -Exudate Amt Large -Exudate Type Serosanguineous -Wound Margin Thickened & Rolled Under -Granulation Amt Large (67-100%) -Granulation Quality [place] -Slough/Fibrin Yes -Necrosis Amt Small (1-33%) -Necrotic Tissue Type Adherent Slough -Structure Exposed N/A -Texture (Sheyla-wound Skin Appearance) Assessed, Scarring -Moisture (Sheyla-wound Skin Appearance Assessed ) -Color (Sheyla-wound Skin Appearance) Assessed -Temperature (Sheyla-wound Skin No Abnormality Appearance) (Pt Warm) -Tenderness on Palpation (Sheyla-wound No Skin Appearance) -Ulcer Cleansing Wound Cleanser -Foul Odor after Cleansing No #5 L Buttocks -Combined with other wound No -Current Size (cm) - Length 7.3 -Current Size (cm) - Width 5.2 -Current Size (cm) - Depth 1.6 -Total Square Cm 37.96 -Tunneling No -Undermining/Tunneling No -Circular Undermining No -Exudate Amt Large -Exudate Type Serosanguineous -Wound Margin Thickened & Rolled Under -Granulation Amt Large (67-100%) -Granulation Quality [place] -Slough/Fibrin Yes -Necrosis Amt Small (1-33%) -Necrotic Tissue Type Adherent Slough -Structure Exposed N/A -Texture (Sheyla-wound Skin Appearance) Scarring -Moisture (Sheyla-wound Skin Appearance Assessed ) -Color (Sheyla-wound Skin Appearance) Assessed -Temperature (Sheyla-wound Skin No Abnormality Appearance) (Pt Warm) -Tenderness on Palpation (Sheyla-wound No Skin Appearance) -Ulcer Cleansing Wound Cleanser -Foul Odor after Cleansing No WC - Nurse 2 - General Ulcer CM Notes Start: 01/15/20 12:19 Freq: Status: Active Protocol: Activity Type Activity Date Activity User E-Sign Co-Sign Detail Recorded Client Recorded Date Recorded By Document 01/24/20 09:57 MW [id number] 01/24/20 10:03 MW 01/24/20 09:57 Wound Center Nurse 2 [Procedure/Treatment] #7 Sacral -Time 09:58 -Correct Patient Yes -Correct Side, Site, Position Yes -Correct Procedure Yes -Procedure Performed Yes -Type of Procedure Debridement -Clinical Debridement Subcutaneous -Tissue Removed Subcutaneous -Post Debridement (cm) - Length 5.0 -Post Debridement (cm) - Width 13.0 -Post Debridement (cm) - Depth 1.5 -Total Square (Post) (cm) 65.00 -Area of Debridement (cm) - Length 5.0 -Area of Debridement (cm) - Width 13.0 -Total Square (Area) (cm) 65.00 -Tunneling No -Undermining/Tunneling No -Circular Undermining No -Wound/Ulcer Outcome Not Healed -Ulcer Cleansing Rinsed/ Irrigated with Saline -Foul Odor after Cleansing No -Bioengineered Tissue No -Bleeding Controlled with Pressure -Offloading No -Debridement - Subq, 1st 20sq cm Yes -Debridement, SubQ, ea addt'l 20sq cm 7 or part thereof #6 R Buttocks -Time 09:59 -Correct Patient Yes -Correct Side, Site, Position Yes -Correct Procedure Yes -Procedure Performed Yes -Type of Procedure Debridement -Clinical Debridement Subcutaneous -Tissue Removed Subcutaneous -Post Debridement (cm) - Length 9.0 -Post Debridement (cm) - Width 4.0 -Post Debridement (cm) - Depth 1.5 -Total Square (Post) (cm) 36.00 -Area of Debridement (cm) - Length 9.0 -Area of Debridement (cm) - Width 4.0 -Total Square (Area) (cm) 36.00 -Tunneling No -Undermining/Tunneling No -Circular Undermining No -Wound/Ulcer Outcome Not Healed -Ulcer Cleansing Rinsed/ Irrigated with Saline -Foul Odor after Cleansing No -Bioengineered Tissue No -Bleeding Controlled with Pressure -Offloading No -Treatment Response Procedure Tolerated Well -Debridement - Subq, 1st 20sq cm No #5 L Buttocks -Time 10:02 -Correct Patient Yes -Correct Side, Site, Position Yes -Correct Procedure Yes -Procedure Performed Yes -Type of Procedure Debridement -Clinical Debridement Subcutaneous -Tissue Removed Subcutaneous -Post Debridement (cm) - Length 8.5 -Post Debridement (cm) - Width 6.0 -Post Debridement (cm) - Depth 2.0 -Total Square (Post) (cm) 51.00 -Area of Debridement (cm) - Length 8.5 -Area of Debridement (cm) - Width 6.0 -Total Square (Area) (cm) 51.00 -Tunneling No -Undermining/Tunneling No -Circular Undermining No -Wound/Ulcer Outcome Not Healed -Ulcer Cleansing Rinsed/ Irrigated with Saline -Foul Odor after Cleansing No -Bioengineered Tissue No -Bleeding Controlled with Pressure -Offloading No -Treatment Response Procedure Tolerated Well -Debridement - Subq, 1st 20sq cm No [See Physician Procedure note for Specifics] Pain Scale: 0-10 Numeric [Pain] -Is Patient Pain Free? Yes - Nurse 3 - General Ulcer D/C NN Start: 01/15/20 12:19 Freq: Status: Active Protocol: Activity Type Activity Date Activity User E-Sign Co-Sign Detail Recorded Client Recorded Date Recorded By Document 01/24/20 10:09 [facility] [id number] 01/24/20 10:11 [facility] 01/24/20 10:09 Wound Care Nurse 3 [Wound Dressing] #7 Sacral -Other Dressing drsg applied per pt's HH staff. collagen , calcium alginate, abd #6 R Buttocks -Other Dressing applied per HH staff, collagen , calcium alginate, abd #5 L Buttocks -Other Dressing drsg per HH staff. calcium alginate, collagen, mepilex [Post Procedure Tolerated] -Treatment Response Procedure Tolerated Well Pain Scale: 0-10 Numeric [Pain] -Is Patient Pain Free? Yes - Visit Discharge [Visit Discharge Information] -Discharge Condition Stable -Ambulatory Status Wheelchair -Transportation Private Auto -Accompanied by HH aide [Facility Notification] -Facility Type Home Health Musculoskeletal: No Muscle Wasting Neurological: Cranial nerves II-XII grossly intact Psych/Mental Status: Normal Affect Debridement Note Post-Debridement Measurements/Treatment - Nurse 2 - General Ulcer CM Notes Start: 01/15/20 12:19 Freq: Status: Active Protocol: Activity Type Activity Date Activity User E-Sign Co-Sign Detail Recorded Client Recorded Date Recorded By Document 01/17/20 09:53 MW [id number] 01/17/20 09:57 MW Document 01/24/20 09:57 MW [id number] 01/24/20 10:03 MW 01/17/20 01/24/20 09:53 09:57 Wound Center Nurse 2 #7 Sacral -Time 09:53 09:58 -Correct Patient Yes Yes -Correct Side, Site, Position Yes Yes -Correct Procedure Yes Yes -Procedure Performed Yes Yes -Type of Procedure Debridement Debridement -Clinical Debridement Subcutaneous Subcutaneous -Tissue Removed Subcutaneous Subcutaneous -Post Debridement (cm) - Length 5.0 5.0 -Post Debridement (cm) - Width 13.0 13.0 -Post Debridement (cm) - Depth 1.4 1.5 -Total Square (Post) (cm) 65.00 65.00 -Area of Debridement (cm) - Length 5.0 5.0 -Area of Debridement (cm) - Width 13.0 13.0 -Total Square (Area) (cm) 65.00 65.00 -Tunneling No No -Undermining/Tunneling No No -Circular Undermining No No -Wound/Ulcer Outcome Not Healed Not Healed -Ulcer Cleansing Rinsed/ Rinsed/ Irrigated with Irrigated with Saline Saline -Foul Odor after Cleansing No No -Bioengineered Tissue No No -Bleeding Controlled with Pressure Pressure -Offloading No No -Treatment Response Procedure Tolerated Well -Debridement - Subq, 1st 20sq cm Yes Yes -Debridement, SubQ, ea addt'l 20sq cm 7 7 or part thereof #6 R Buttocks -Time 09:56 09:59 -Correct Patient Yes Yes -Correct Side, Site, Position Yes Yes -Correct Procedure Yes Yes -Procedure Performed Yes Yes -Type of Procedure Debridement Debridement -Clinical Debridement Subcutaneous Subcutaneous -Tissue Removed Subcutaneous Subcutaneous -Post Debridement (cm) - Length 8.0 9.0 -Post Debridement (cm) - Width 4.0 4.0 -Post Debridement (cm) - Depth 1.5 1.5 -Total Square (Post) (cm) 32.00 36.00 -Area of Debridement (cm) - Length 8.0 9.0 -Area of Debridement (cm) - Width 4.0 4.0 -Total Square (Area) (cm) 32.00 36.00 -Tunneling No No -Undermining/Tunneling No No -Circular Undermining No No -Wound/Ulcer Outcome Not Healed Not Healed -Ulcer Cleansing Rinsed/ Rinsed/ Irrigated with Irrigated with Saline Saline -Foul Odor after Cleansing No No -Bioengineered Tissue No No -Bleeding Controlled with Pressure Pressure -Offloading No No -Treatment Response Procedure Procedure Tolerated Well Tolerated Well -Debridement - Subq, 1st 20sq cm No No #5 L Buttocks -Time 09:54 10:02 -Correct Patient Yes Yes -Correct Side, Site, Position Yes Yes -Correct Procedure Yes Yes -Procedure Performed Yes Yes -Type of Procedure Debridement Debridement -Clinical Debridement Subcutaneous Subcutaneous -Tissue Removed Subcutaneous Subcutaneous -Post Debridement (cm) - Length 8.0 8.5 -Post Debridement (cm) - Width 5.5 6.0 -Post Debridement (cm) - Depth 2.5 2.0 -Total Square (Post) (cm) 44.00 51.00 -Area of Debridement (cm) - Length 8.0 8.5 -Area of Debridement (cm) - Width 5.5 6.0 -Total Square (Area) (cm) 44.00 51.00 -Tunneling No No -Undermining/Tunneling No No -Circular Undermining No No -Wound/Ulcer Outcome Not Healed Not Healed -Ulcer Cleansing Rinsed/ Rinsed/ Irrigated with Irrigated with Saline Saline -Foul Odor after Cleansing No No -Bioengineered Tissue No No -Bleeding Controlled with Pressure Pressure -Offloading No No -Treatment Response Procedure Procedure Tolerated Well Tolerated Well -Debridement - Subq, 1st 20sq cm No No Pain Scale: 0-10 Numeric Is Patient Pain Free? Yes Yes - Nurse 3 - General Ulcer D/C NN Start: 01/15/20 12:19 Freq: Status: Active Protocol: Activity Type Activity Date Activity User E-Sign Co-Sign Detail Recorded Client Recorded Date Recorded By Document 01/15/20 12:20 [id number] 01/15/20 12:23 Document 01/17/20 10:07 MI [id number] 01/17/20 10:12 MI Document 01/24/20 10:09 [facility] [id number] 01/24/20 10:11 [facility] 01/15/20 01/17/20 01/24/20 12:20 10:07 10:09 Wound Care Nurse 3 #7 Sacral -Other Dressing MEPILEX drsg applied per pt's staff. collagen , calcium alginate, abd -Primary Dressing Covered/Secured with Dry Gauze, Secured with Tape #6 R Buttocks -Other Dressing abd applied per staff, collagen , calcium alginate, abd -Primary Dressing Covered/Secured with Dry Gauze, Secured with Tape #5 L Buttocks -Other Dressing abd drsg per staff. calcium alginate, collagen, mepilex -Primary Dressing Covered/Secured with Dry Gauze, Secured with Tape Treatment Response Procedure Tolerated Well Pain Scale: 0-10 Numeric Is Patient Pain Free? Yes Yes - Visit Discharge Discharge Condition Stable Stable Stable Ambulatory Status Wheelchair Wheelchair Wheelchair Transportation Private Auto Private Auto Accompanied by Radha HH aide Medication Reconcilliation completed & Yes No provided to patient/care provider Clinical Summary of Care Provided Yes Yes Notes: HBO AFTER Facility Type Home Health Wound debrided: Sacral Wound Grade/Stage: Stage IV Type of Debridement: Excisional debridement Anesthesia Used: 4% Lidocaine Solution Depth: Down to and including healthy tissue, in the subcutaneous layer Percentage of wound debrided: 100 Instrument Used: 5mm curette Tissue Removed: Slough and devitalized tissue Severity: Fat Layer Exposed Amount of bleeding with debridement: Mild Bleeding Controlled with: Pressure Patient tolerated procedure well - Additional Wound Wound debrided: Right buttock Wound Grade/Stage: Stage 4 Type of Debridement: Excisional debridement Anesthesia Used: 4% Lidocaine Solution Depth: Down to and including healthy tissue, in the subcutaneous layer Percentage of wound debrided: 100 Instrument Used: 5mm curette Tissue Removed: Slough and devitalized tissue Severity: Fat Layer Exposed Amount of bleeding with debridement: Mild Bleeding Controlled with: Pressure Patient tolerated procedure: Patient tolerated procedure well - Additional Wound Wound debrided: Left buttock Wound Grade/Stage: Stage IV Type of Debridement: Excisional debridement Anesthesia Used: 4% Lidocaine Solution Depth: Down to and including healthy tissue, in the subcutaneous layer Percentage of wound debrided: 100 Instrument Used: 5mm curette Tissue Removed: Slough and devitalized tissue Severity: Fat Layer Exposed Amount of bleeding with debridement: Mild Bleeding Controlled with: Pressure Patient tolerated procedure: Patient tolerated procedure well Assessment/Plan Active Problems (Last Updated 12/14/19 @ 15:[address] Meena Coyne, DO) Sacral decubitus ulcer, stage IV (Acute) Decubitus ulcer of right buttock, stage 4 (Chronic) Decubitus ulcer of left buttock, stage 4 (Chronic) Chronic osteomyelitis involving pelvic region and thigh (Chronic) Paraplegia (Chronic) Assessment: Same as above. Plan: Debridement done as documented above, procedure well-tolerated. Left Buttock ulcer tenderness and increased drainage from all ulcers. Cultures taken. Continue 10 minute Acetic acid soak to all ulcers then calcium alginate/collagen dressing. Change daily to twice daily depending on drainage. Continue optimal dietary and protein intake. Offloading also recommended. His questions were answered and they were advised to call with any further questions or concerns. Follow up in 1 week. This note was generated with [employer]icket software. It may contain incorrect words, spelling, and punctuation that were not noted in checking the note before signing. [id number]: [id number] Oxana subq tissue 20 sq cm/< Add On Codes: 65183 Oxana subq tissue add-on - Additional square centimeter debrided, please refer to clinical note.
--- NOTE | 2020-01-24 11:04 | PCM.HBO.PN ---
History of Present Illness Date of Service: 01/28/20 Presenting Chief Complaint: Non healing, chronic decubitus pressure ulcers, stage IV, with osteomyelitis - thigh, buttock, sacrum. GABBI CARBAJAL is a 34 year old currently undergoing hyperbaric oxygen therapy for Stage IV pressure ulcers with osteomyelitis of the thigh, buttocks, and sacrum. Progress: This represents the 69th such session of hyperbaric oxygen therapy. The patient appears to be tolerating HBO therapy well. Tolerance of hyperbaric oxygen therapy: Hyperbaric oxygen therapy was administered as per the facility's protocol. HBO therapy was administered at 2 octavio for 90 minutes with no air breaks. The patient tolerated hyperbaric oxygen therapy well, without complaints or complications. Upon emergence from the hyperbaric chamber, the patient's vital signs remained stable. The patient was discharged in good condition. Pre- and post- blood glucose measurements are documented elsewhere. Past Medical History Chronic Problems (Last Updated 12/14/19 @ 15:[address] Meena Coyne, ) Decubitus ulcer of right buttock, stage 4 (Chronic) Decubitus ulcer of left buttock, stage 4 (Chronic) Chronic osteomyelitis involving pelvic region and thigh (Chronic) Paraplegia (Chronic) Sacral decubitus ulcer, stage IV (Chronic) Decubitus ulcer of right buttock, stage 4 (Chronic) Decubitus ulcer of left buttock, stage 4 (Chronic) Chronic osteomyelitis involving pelvic region and thigh (Chronic) Paraplegia (Chronic) Allergies/Adverse Reactions: Allergies lidocaine Allergy (Verified 09/03/19 13:05) Unknown Home Medications: Ambulatory Orders Medication Instructions Recorded Sitagliptin Phosphate [Januvia] 100 mg PO DAILY 10/11/17 Baclofen 5 mg PO BID 10/12/18 Diazepam [Valium] 5 mg PO BID 10/12/18 Fentanyl 200 ea TD 10/12/18 Ferrous Sulfate 325 mg PO 10/12/18 Insulin Glargine,Hum.rec.anlog 10 unit SQ 10/12/18 [Lantus Solostar] Insulin Lispro [Humalog KwikPen] unit SQ 10/12/18 Magnesium Oxide [Magnesium] 400 mg PO BID 10/12/18 Melatonin 3 mg PO 10/12/18 Metoclopramide HCl [Reglan] 5 mg PO TID 10/12/18 Oxycodone [Oxyfast] 30 mg PO Q4H PRN 10/12/18 Pregabalin [Lyrica] 50 mg PO BID 10/12/18 Sitagliptin Phosphate [Januvia] 100 mg PO 10/12/18 traZODone [Desyrel] 50 mg PO QHS 10/12/18 Meloxicam 7.5 mg PO BID PRN 05/17/19 Methenamine Hippurate [Hiprex] 1 gm PO BID 05/17/19 Maternal Family History: No pertinent history Smoking Status: Former smoker Tobacco Use: Non-smoker Physical Exam Vital Signs Temp Pulse Resp BP 98 F 80 18 113/65 01/24/20 09:27 01/24/20 09:27 01/24/20 09:27 01/24/20 09:27 General: Alert, Oriented x3, Cooperative, No apparent distress HEENT: Atraumatic, Normocephalic Lungs: Normal air movement Psych/Mental Status: Normal Affect Assessment/Plan Active Problems (Last Updated 12/14/19 @ 15:[address] Meena Coyne, DO) Sacral decubitus ulcer, stage IV (Acute) Decubitus ulcer of right buttock, stage 4 (Chronic) Decubitus ulcer of left buttock, stage 4 (Chronic) Chronic osteomyelitis involving pelvic region and thigh (Chronic) Paraplegia (Chronic) The patient appears to be tolerating hyperbaric oxygen therapy well, which will be continued as per the patient's medical plan. 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
[2020-01-24 11:21] VITALS: BP 113/65; BP 126/84; PULSE 71; PULSE 88; RESP 16; TEMP 36.6
[2020-01-24 13:25] LABS: Bedside Glucose 99 mg/dL (70-110)
[2020-01-25 10:52] VITALS: BP 147/51; BP 160/80; PULSE 68; PULSE 69; RESP 16; RESP 18; TEMP 36.4; TEMP 37
--- NOTE | 2020-01-25 11:20 | PCM.HBO.PN ---
History of Present Illness Date of Service: 01/25/20 Presenting Chief Complaint: Non healing, chronic decubitus pressure ulcers, stage IV, with osteomyelitis - thigh, buttock, sacrum. GABBI CARBAJAL is a 34 year old currently undergoing hyperbaric oxygen therapy for Stage IV pressure ulcers with osteomyelitis of the thigh, buttocks, and sacrum. Progress: This represents the 70th such session of hyperbaric oxygen therapy. The patient appears to be tolerating HBO therapy well. Tolerance of hyperbaric oxygen therapy: Hyperbaric oxygen therapy was administered as per the facility's protocol. HBO therapy was administered at 2 octavio for 90 minutes with no air breaks. The patient tolerated hyperbaric oxygen therapy well, without complaints or complications. Upon emergence from the hyperbaric chamber, the patient's vital signs remained stable. The patient was discharged in good condition. Pre- and post- blood glucose measurements are documented elsewhere. Past Medical History Chronic Problems (Last Updated 12/14/19 @ 15:[address] Meena Coyne, ) Decubitus ulcer of right buttock, stage 4 (Chronic) Decubitus ulcer of left buttock, stage 4 (Chronic) Chronic osteomyelitis involving pelvic region and thigh (Chronic) Paraplegia (Chronic) Sacral decubitus ulcer, stage IV (Chronic) Decubitus ulcer of right buttock, stage 4 (Chronic) Decubitus ulcer of left buttock, stage 4 (Chronic) Chronic osteomyelitis involving pelvic region and thigh (Chronic) Paraplegia (Chronic) Allergies/Adverse Reactions: Allergies lidocaine Allergy (Verified 09/03/19 13:05) Unknown Home Medications: Ambulatory Orders Medication Instructions Recorded Sitagliptin Phosphate [Januvia] 100 mg PO DAILY 10/11/17 Baclofen 5 mg PO BID 10/12/18 Diazepam [Valium] 5 mg PO BID 10/12/18 Fentanyl 200 ea TD 10/12/18 Ferrous Sulfate 325 mg PO 10/12/18 Insulin Glargine,Hum.rec.anlog 10 unit SQ 10/12/18 [Lantus Solostar] Insulin Lispro [Humalog KwikPen] unit SQ 10/12/18 Magnesium Oxide [Magnesium] 400 mg PO BID 10/12/18 Melatonin 3 mg PO 10/12/18 Metoclopramide HCl [Reglan] 5 mg PO TID 10/12/18 Oxycodone [Oxyfast] 30 mg PO Q4H PRN 10/12/18 Pregabalin [Lyrica] 50 mg PO BID 10/12/18 Sitagliptin Phosphate [Januvia] 100 mg PO 10/12/18 traZODone [Desyrel] 50 mg PO QHS 10/12/18 Meloxicam 7.5 mg PO BID PRN 05/17/19 Methenamine Hippurate [Hiprex] 1 gm PO BID 05/17/19 Maternal Family History: No pertinent history Smoking Status: Former smoker Tobacco Use: Non-smoker Physical Exam Vital Signs Temp Pulse Resp BP 97.5 F L 68 18 147/51 H 01/25/20 10:52 01/25/20 10:52 01/25/20 10:52 01/25/20 10:52 General: Alert, Oriented x3, Cooperative, No apparent distress HEENT: Atraumatic, TM's Clear Lungs: Clear to auscultation, Normal air movement Cardiovascular: Regular rate, Regular Rhythm Psych/Mental Status: Normal Affect, Appropriate, Alert and oriented to time, place, person, mood and affect Assessment/Plan Active Problems (Last Updated 12/14/19 @ 15:[address] Meena Coyne, DO) Sacral decubitus ulcer, stage IV (Acute) Decubitus ulcer of right buttock, stage 4 (Chronic) Decubitus ulcer of left buttock, stage 4 (Chronic) Chronic osteomyelitis involving pelvic region and thigh (Chronic) Paraplegia (Chronic) Treatment Course Number Number of HBO Treatments 86 Ordered Treatment Course Number 1 Treatment # 70 Chamber # 2 Chamber Type Monoplace HBO Diagnosis/Indication Diagnosis/Indication(s) for Standard/Conservative Hyperbaric Therapy Diabetes - Detail Diabetes Diabetes Type II Other - Detail Chronic Refractory Yes Osteomyelitis (specify site in comment) Compromised/Failed Flap/Graft Yes (specify site in comment) 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
[2020-01-25 12:31] LABS: Bedside Glucose 187 mg/dL (70-110)
[2020-01-25 12:40] LABS: Bedside Glucose 124 mg/dL (70-110)
[2020-01-28 10:21] LABS: Bedside Glucose 134 mg/dL (70-110)
[2020-01-28 11:06] VITALS: BP 135/75; PULSE 70; RESP 16; TEMP 35.8
--- NOTE | 2020-01-28 11:37 | PCM.HBO.PN ---
History of Present Illness Date of Service: 01/28/20 Presenting Chief Complaint: Non healing, chronic decubitus pressure ulcers, stage IV, with osteomyelitis - thigh, buttock, sacrum. GABBI CARBAJAL is a 34 year old currently undergoing hyperbaric oxygen therapy for Stage IV pressure ulcers with osteomyelitis of the thigh, buttocks, and sacrum. Progress: This represents the 71st such session of hyperbaric oxygen therapy. The patient appears to be tolerating HBO therapy well. Tolerance of hyperbaric oxygen therapy: Hyperbaric oxygen therapy was administered as per the facility's protocol. HBO therapy was administered at 2 octavio for 90 minutes with no air breaks. The patient tolerated hyperbaric oxygen therapy well, without complaints or complications. Upon emergence from the hyperbaric chamber, the patient's vital signs remained stable. The patient was discharged in good condition. Pre- and post- blood glucose measurements are documented elsewhere. Past Medical History Chronic Problems (Last Updated 12/14/19 @ 15:[address] Meena Coyne, ) Decubitus ulcer of right buttock, stage 4 (Chronic) Decubitus ulcer of left buttock, stage 4 (Chronic) Chronic osteomyelitis involving pelvic region and thigh (Chronic) Paraplegia (Chronic) Sacral decubitus ulcer, stage IV (Chronic) Decubitus ulcer of right buttock, stage 4 (Chronic) Decubitus ulcer of left buttock, stage 4 (Chronic) Chronic osteomyelitis involving pelvic region and thigh (Chronic) Paraplegia (Chronic) Allergies/Adverse Reactions: Allergies lidocaine Allergy (Verified 09/03/19 13:05) Unknown Home Medications: Ambulatory Orders Medication Instructions Recorded Sitagliptin Phosphate [Januvia] 100 mg PO DAILY 10/11/17 Baclofen 5 mg PO BID 10/12/18 Diazepam [Valium] 5 mg PO BID 10/12/18 Fentanyl 200 ea TD 10/12/18 Ferrous Sulfate 325 mg PO 10/12/18 Insulin Glargine,Hum.rec.anlog 10 unit SQ 10/12/18 [Lantus Solostar] Insulin Lispro [Humalog KwikPen] unit SQ 10/12/18 Magnesium Oxide [Magnesium] 400 mg PO BID 10/12/18 Melatonin 3 mg PO 10/12/18 Metoclopramide HCl [Reglan] 5 mg PO TID 10/12/18 Oxycodone [Oxyfast] 30 mg PO Q4H PRN 10/12/18 Pregabalin [Lyrica] 50 mg PO BID 10/12/18 Sitagliptin Phosphate [Januvia] 100 mg PO 10/12/18 traZODone [Desyrel] 50 mg PO QHS 10/12/18 Meloxicam 7.5 mg PO BID PRN 05/17/19 Methenamine Hippurate [Hiprex] 1 gm PO BID 05/17/19 Maternal Family History: No pertinent history Smoking Status: Former smoker Tobacco Use: Non-smoker Physical Exam Vital Signs Temp Pulse Resp BP 96.4 F L 70 16 135/75 H 01/28/20 11:06 01/28/20 11:06 01/28/20 11:06 01/28/20 11:06 General: Alert, Oriented x3, Cooperative, No apparent distress HEENT: Atraumatic, TM's Clear Lungs: Clear to auscultation, Normal air movement Cardiovascular: Regular rate, Regular Rhythm Psych/Mental Status: Normal Affect, Appropriate, Alert and oriented to time, place, person, mood and affect Assessment/Plan Active Problems (Last Updated 12/14/19 @ 15:[address] Meena Coyne, DO) Sacral decubitus ulcer, stage IV (Acute) Decubitus ulcer of right buttock, stage 4 (Chronic) Decubitus ulcer of left buttock, stage 4 (Chronic) Chronic osteomyelitis involving pelvic region and thigh (Chronic) Paraplegia (Chronic) Treatment Course Number Number of HBO Treatments 86 Ordered Treatment Course Number 1 Treatment # 71 Chamber # 2 Chamber Type Monoplace HBO Diagnosis/Indication Diagnosis/Indication(s) for Standard/Conservative Hyperbaric Therapy Diabetes - Detail Diabetes Diabetes Type II Other - Detail Chronic Refractory Yes Osteomyelitis (specify site in comment) Compromised/Failed Flap/Graft Yes (specify site in comment) 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
[2020-01-28 12:40] LABS: Bedside Glucose 107 mg/dL (70-110)
[2020-01-30 15:55] LABS: Bedside Glucose 111 mg/dL (70-110)
[2020-01-30 15:55] LABS: Bedside Glucose 126 mg/dL (70-110)
[2020-01-30 15:55] LABS: Bedside Glucose 108 mg/dL (70-110)
[2020-01-31 09:30] VITALS: BP 143/71; PULSE 72; TEMP 36.3; BMI 21.8
[2020-01-31 10:35] LABS: Bedside Glucose 156 mg/dL (70-110)
[2020-01-31 10:55] VITALS: BP 141/91; BP 143/71; PULSE 61; PULSE 72; RESP 16; RESP 18; TEMP 36.3
--- NOTE | 2020-01-31 12:52 | PCM.WC.PN ---
(1) Sacral decubitus ulcer, stage IV Status: Acute Code(s): L89.154 - Pressure ulcer of sacral region, stage 4 (2) Chronic osteomyelitis involving pelvic region and thigh Status: Chronic Code(s): M86.659 - Other chronic osteomyelitis, unspecified thigh (3) Decubitus ulcer of left buttock, stage 4 Status: Chronic Code(s): L89.324 - Pressure ulcer of left buttock, stage 4 (4) Decubitus ulcer of right buttock, stage 4 Status: Chronic Code(s): L89.314 - Pressure ulcer of right buttock, stage 4 (5) Paraplegia Status: Chronic Code(s): G82.20 - Paraplegia, unspecified Type of Wound Date of Service: 01/31/20 Chief Complaint: Non healing, chronic decubitus pressure ulcers, stage IV, with osteomyelitis - thigh, buttock, sacrum. History of Wound: Mr. Joyce is a 33yo well known to the wound center but was last seen here over a month ago. Initial sacral ulcer was said to have started in November and Buttock ulcers were noted subsequently. He has had an extensive hospital stay over the last couple of months following a work related injury. Both during his hopsital and half-way stays, he had wound care ranging from surgical debridement, wound vac and collagen use. He was scheduled to be restarted on his wound Vac prior to his discharge from the [place]. He reports significant drainage from the wounds. Also of note is a history of osteomyelitis for which he was on a 6 week IV antibiotic. His however states they were informed that he had developed chronic extensive pelvic area osteomyelitis. He feels well otherwise at this time and denies chills, fever,nausea, vomitting or change in bowel habit. 02/22/2019: Above, he was last seen here over a month ago. Had an extensive hospital stay [facility] due to complications from prior neck surgery. They state that his ulcers have been stable. Been doing the acetic acid soak for 10 minutes and then calcium alginate/collagen dressings. Is any concerns at this time. Progress of Wound: Drainage improved however appears to have more slough bothering today. - Physical Exam Vital Signs Temp Pulse Resp BP 97.4 F L 72 18 143/71 H 01/31/20 10:55 01/31/20 10:55 01/31/20 10:55 01/31/20 10:55 General: Alert, Oriented x3, Cooperative, No apparent distress HEENT: Atraumatic, Normocephalic Oral: Moist Mucosa Neck: Supple Lungs: Normal air movement Abdomen: Non Tender, Obese Extremities: No cyanosis Skin: Ulcer/ Wound Wound Measurements and Assessment WC - Nurse 1 - General Ulcer Measurement Start: 01/15/20 12:19 Freq: Status: Active Protocol: Activity Type Activity Date Activity User E-Sign Co-Sign Detail Recorded Client Recorded Date Recorded By Document 01/31/20 09:30 FRANCO [id number] 01/31/20 10:00 FRANCO 01/31/20 09:30 Wound Center Nurse 1 [Ulcer Assessment] #7 Sacral -Current Size (cm) - Length 6.5 -Current Size (cm) - Width 13 -Current Size (cm) - Depth 0.9 -Total Square Cm 84.5 -Photo Taken No -Undermining/Tunneling Yes -Undermining/Tunneling Starts (O' 12 clock) -Undermining/Tunneling Ends (O'clock) 3 -Maximum Distance (cm) 0.1 -Undermining/Tunneling Starts #2 (O' 11 clock) -Undermining/Tunneling Ends #2 (O' 12 clock) -Maximum Distance #2 (cm) 4.8 -Circular Undermining No -Classification - Thickness Full Thickness with Exposed Support Structure -Exudate Amt Large -Exudate Type Serosanguineous -Granulation Amt Large (67-100%) -Granulation Quality [place],Red -Necrosis Amt Small (1-33%) -Necrotic Tissue Type Adherent Slough -Texture (Sheyla-wound Skin Appearance) No Abnormality -Moisture (Sheyla-wound Skin Appearance No Abnormality ) -Color (Sheyla-wound Skin Appearance) No Abnormality -Temperature (Sheyla-wound Skin No Abnormality Appearance) (Pt Warm) -Tenderness on Palpation (Sheyla-wound No Skin Appearance) -Ulcer Cleansing Rinsed/ Irrigated with Saline -Foul Odor after Cleansing No #6 R Buttocks -Current Size (cm) - Length 4.5 -Current Size (cm) - Width 5.1 -Current Size (cm) - Depth 0.5 -Total Square Cm 22.95 -Undermining/Tunneling Yes -Undermining/Tunneling Starts (O' 3 clock) -Undermining/Tunneling Ends (O'clock) 6 -Maximum Distance (cm) 0.9 -Classification - Thickness Full Thickness with Exposed Support Structure -Exudate Amt Large -Exudate Type Serosanguineous -Wound Margin Thickened & Rolled Under -Granulation Amt Large (67-100%) -Granulation Quality Red -Necrosis Amt Small (1-33%) -Necrotic Tissue Type Adherent Slough -Texture (Sheyla-wound Skin Appearance) No Abnormality -Moisture (Sheyla-wound Skin Appearance No Abnormality ) -Color (Sheyla-wound Skin Appearance) No Abnormality -Temperature (Sheyla-wound Skin No Abnormality Appearance) (Pt Warm) -Tenderness on Palpation (Sheyla-wound No Skin Appearance) -Ulcer Cleansing Rinsed/ Irrigated with Saline -Foul Odor after Cleansing No #5 L Buttocks -Current Size (cm) - Length 8.2 -Current Size (cm) - Width 3.9 -Current Size (cm) - Depth 0.5 -Total Square Cm 31.98 -Tunneling Yes -Tunneling Position (O'clock) 12 -Tunneling Distance (cm) 0.6 -Undermining/Tunneling No -Classification - Thickness Full Thickness with Exposed Support Structure -Exudate Amt Large -Exudate Type Serosanguineous -Wound Margin Thickened & Rolled Under -Granulation Amt Large (67-100%) -Granulation Quality Red -Necrosis Amt Small (1-33%) -Necrotic Tissue Type Adherent Slough -Texture (Sheyla-wound Skin Appearance) No Abnormality -Moisture (Sheyla-wound Skin Appearance No Abnormality ) -Color (Sheyla-wound Skin Appearance) No Abnormality -Temperature (Sheyla-wound Skin No Abnormality Appearance) (Pt Warm) -Tenderness on Palpation (Sheyla-wound No Skin Appearance) -Ulcer Cleansing Rinsed/ Irrigated with Saline -Foul Odor after Cleansing No WC - Nurse 2 - General Ulcer CM Notes Start: 01/15/20 12:19 Freq: Status: Active Protocol: Activity Type Activity Date Activity User E-Sign Co-Sign Detail Recorded Client Recorded Date Recorded By Document 01/31/20 10:05 MW [id number] 01/31/20 10:17 MW 01/31/20 10:05 Wound Center Nurse 2 [Procedure/Treatment] #7 Sacral -Time 10:10 -Correct Patient Yes -Correct Side, Site, Position Yes -Correct Procedure Yes -Procedure Performed Yes -Type of Procedure Debridement -Clinical Debridement Subcutaneous -Tissue Removed Subcutaneous -Post Debridement (cm) - Length 5.3 -Post Debridement (cm) - Width 12.7 -Post Debridement (cm) - Depth 1.7 -Total Square (Post) (cm) 67.31 -Area of Debridement (cm) - Length 5.3 -Area of Debridement (cm) - Width 12.7 -Total Square (Area) (cm) 67.31 -Tunneling No -Undermining/Tunneling No -Circular Undermining No -Wound/Ulcer Outcome Not Healed -Ulcer Cleansing Rinsed/ Irrigated with Saline -Foul Odor after Cleansing No -Bioengineered Tissue No -Bleeding Controlled with Pressure -Offloading No -Treatment Response Procedure Tolerated Well -Debridement - Subq, 1st 20sq cm Yes -Debridement, SubQ, ea addt'l 20sq cm 7 or part thereof #6 R Buttocks -Time 10:10 -Correct Patient Yes -Correct Side, Site, Position Yes -Correct Procedure Yes -Procedure Performed Yes -Type of Procedure Debridement -Clinical Debridement Subcutaneous -Tissue Removed Subcutaneous -Post Debridement (cm) - Length 8.5 -Post Debridement (cm) - Width 3.8 -Post Debridement (cm) - Depth 1.5 -Total Square (Post) (cm) 32.30 -Area of Debridement (cm) - Length 8.5 -Area of Debridement (cm) - Width 3.8 -Total Square (Area) (cm) 32.30 -Tunneling No -Undermining/Tunneling No -Circular Undermining No -Wound/Ulcer Outcome Not Healed -Ulcer Cleansing Rinsed/ Irrigated with Saline -Foul Odor after Cleansing No -Bioengineered Tissue No -Bleeding Controlled with Pressure -Offloading No -Treatment Response Procedure Tolerated Well -Debridement - Subq, 1st 20sq cm No #5 L Buttocks -Time 10:10 -Correct Patient Yes -Correct Side, Site, Position Yes -Correct Procedure Yes -Procedure Performed Yes -Type of Procedure Debridement -Clinical Debridement Subcutaneous -Tissue Removed Subcutaneous -Post Debridement (cm) - Length 8.0 -Post Debridement (cm) - Width 6.0 -Post Debridement (cm) - Depth 2.0 -Total Square (Post) (cm) 48.00 -Area of Debridement (cm) - Length 8.0 -Area of Debridement (cm) - Width 6.0 -Total Square (Area) (cm) 48.00 -Tunneling No -Undermining/Tunneling No -Circular Undermining No -Wound/Ulcer Outcome Not Healed -Ulcer Cleansing Rinsed/ Irrigated with Saline -Foul Odor after Cleansing No -Bioengineered Tissue No -Bleeding Controlled with Pressure -Offloading No -Debridement - Subq, 1st 20sq cm No [See Physician Procedure note for Specifics] Pain Scale: 0-10 Numeric [Pain] -Is Patient Pain Free? Yes ARTIS - Nurse 3 - General Ulcer D/C NN Start: 01/15/20 12:19 Freq: Status: Active Protocol: Activity Type Activity Date Activity User E-Sign Co-Sign Detail Recorded Client Recorded Date Recorded By Document 01/31/20 10:24 DL [id number] 01/31/20 10:29 DL 01/31/20 10:24 Wound Care Nurse 3 [Wound Dressing] #7 Sacral -Ulcer Cleansing Wound Cleanser -Foul Odor after Cleansing No -Other Dressing Hrydrogel/Radames Alginate -Primary Dressing Covered/Secured Dry Gauze,Other with -Other Covering Mepilex #6 R Buttocks -Ulcer Cleansing Wound Cleanser -Foul Odor after Cleansing No -Other Dressing hydrogel/Radames Aliginate/ Mepilex -Primary Dressing Covered/Secured Dry Gauze with #5 L Buttocks -Ulcer Cleansing Wound Cleanser -Foul Odor after Cleansing No -Other Dressing hydrogel/Radames Alginate/ Mepilex -Primary Dressing Covered/Secured Dry Gauze with [Post Procedure Tolerated] -Treatment Response Procedure Tolerated Well Pain Scale: 0-10 Numeric [Pain] -Is Patient Pain Free? Yes - Visit Discharge [Visit Discharge Information] -Discharge Condition Stable -Ambulatory Status Wheelchair -Transportation Private Auto -Notes: Pt to do HBO Tx after dr.visit . Post VS done at this time. Acetic Acid wash done at home prior to drsg changes by . [Facility Notification] -Facility Type Home Health -Orders Sent Yes Musculoskeletal: No Muscle Wasting Neurological: Cranial nerves II-XII grossly intact Psych/Mental Status: Normal Affect Debridement Note Post-Debridement Measurements/Treatment ARTIS - Nurse 2 - General Ulcer CM Notes Start: 01/15/20 12:19 Freq: Status: Active Protocol: Activity Type Activity Date Activity User E-Sign Co-Sign Detail Recorded Client Recorded Date Recorded By Document 01/17/20 09:53 MW [id number] 01/17/20 09:57 MW Document 01/24/20 09:57 MW [id number] 01/24/20 10:03 MW Document 01/31/20 10:05 MW [id number] 01/31/20 10:17 MW 01/17/20 01/24/20 01/31/20 09:53 09:57 10:05 Wound Center Nurse 2 #7 Sacral -Time 09:53 09:58 10:10 -Correct Patient Yes Yes Yes -Correct Side, Site, Position Yes Yes Yes -Correct Procedure Yes Yes Yes -Procedure Performed Yes Yes Yes -Type of Procedure Debridement Debridement Debridement -Clinical Debridement Subcutaneous Subcutaneous Subcutaneous -Tissue Removed Subcutaneous Subcutaneous Subcutaneous -Post Debridement (cm) - Length 5.0 5.0 5.3 -Post Debridement (cm) - Width 13.0 13.0 12.7 -Post Debridement (cm) - Depth 1.4 1.5 1.7 -Total Square (Post) (cm) 65.00 65.00 67.31 -Area of Debridement (cm) - Length 5.0 5.0 5.3 -Area of Debridement (cm) - Width 13.0 13.0 12.7 -Total Square (Area) (cm) 65.00 65.00 67.31 -Tunneling No No No -Undermining/Tunneling No No No -Circular Undermining No No No -Wound/Ulcer Outcome Not Healed Not Healed Not Healed -Ulcer Cleansing Rinsed/ Rinsed/ Rinsed/ Irrigated with Irrigated with Irrigated with Saline Saline Saline -Foul Odor after Cleansing No No No -Bioengineered Tissue No No No -Bleeding Controlled with Pressure Pressure Pressure -Offloading No No No -Treatment Response Procedure Procedure Tolerated Well Tolerated Well -Debridement - Subq, 1st 20sq cm Yes Yes Yes -Debridement, SubQ, ea addt'l 20sq cm 7 7 7 or part thereof #6 R Buttocks -Time 09:56 09:59 10:10 -Correct Patient Yes Yes Yes -Correct Side, Site, Position Yes Yes Yes -Correct Procedure Yes Yes Yes -Procedure Performed Yes Yes Yes -Type of Procedure Debridement Debridement Debridement -Clinical Debridement Subcutaneous Subcutaneous Subcutaneous -Tissue Removed Subcutaneous Subcutaneous Subcutaneous -Post Debridement (cm) - Length 8.0 9.0 8.5 -Post Debridement (cm) - Width 4.0 4.0 3.8 -Post Debridement (cm) - Depth 1.5 1.5 1.5 -Total Square (Post) (cm) 32.00 36.00 32.30 -Area of Debridement (cm) - Length 8.0 9.0 8.5 -Area of Debridement (cm) - Width 4.0 4.0 3.8 -Total Square (Area) (cm) 32.00 36.00 32.30 -Tunneling No No No -Undermining/Tunneling No No No -Circular Undermining No No No -Wound/Ulcer Outcome Not Healed Not Healed Not Healed -Ulcer Cleansing Rinsed/ Rinsed/ Rinsed/ Irrigated with Irrigated with Irrigated with Saline Saline Saline -Foul Odor after Cleansing No No No -Bioengineered Tissue No No No -Bleeding Controlled with Pressure Pressure Pressure -Offloading No No No -Treatment Response Procedure Procedure Procedure Tolerated Well Tolerated Well Tolerated Well -Debridement - Subq, 1st 20sq cm No No No #5 L Buttocks -Time 09:54 10:02 10:10 -Correct Patient Yes Yes Yes -Correct Side, Site, Position Yes Yes Yes -Correct Procedure Yes Yes Yes -Procedure Performed Yes Yes Yes -Type of Procedure Debridement Debridement Debridement -Clinical Debridement Subcutaneous Subcutaneous Subcutaneous -Tissue Removed Subcutaneous Subcutaneous Subcutaneous -Post Debridement (cm) - Length 8.0 8.5 8.0 -Post Debridement (cm) - Width 5.5 6.0 6.0 -Post Debridement (cm) - Depth 2.5 2.0 2.0 -Total Square (Post) (cm) 44.00 51.00 48.00 -Area of Debridement (cm) - Length 8.0 8.5 8.0 -Area of Debridement (cm) - Width 5.5 6.0 6.0 -Total Square (Area) (cm) 44.00 51.00 48.00 -Tunneling No No No -Undermining/Tunneling No No No -Circular Undermining No No No -Wound/Ulcer Outcome Not Healed Not Healed Not Healed -Ulcer Cleansing Rinsed/ Rinsed/ Rinsed/ Irrigated with Irrigated with Irrigated with Saline Saline Saline -Foul Odor after Cleansing No No No -Bioengineered Tissue No No No -Bleeding Controlled with Pressure Pressure Pressure -Offloading No No No -Treatment Response Procedure Procedure Tolerated Well Tolerated Well -Debridement - Subq, 1st 20sq cm No No No Pain Scale: 0-10 Numeric Is Patient Pain Free? Yes Yes Yes WC - Nurse 3 - General Ulcer D/C NN Start: 01/15/20 12:19 Freq: Status: Active Protocol: Activity Type Activity Date Activity User E-Sign Co-Sign Detail Recorded Client Recorded Date Recorded By Document 01/15/20 12:20 [id number] 01/15/20 12:23 Document 01/17/20 10:07 MT [id number] 01/17/20 10:12 MT Document 01/24/20 10:09 BM [id number] 01/24/20 10:11 BMF Document 01/31/20 10:24 DL [id number] 01/31/20 10:29 DL 01/15/20 01/17/20 01/24/20 12:20 10:07 10:09 Wound Care Nurse 3 #7 Sacral -Ulcer Cleansing -Foul Odor after Cleansing -Other Dressing MEPILEX drsg applied per pt's HH staff. collagen , calcium alginate, abd -Primary Dressing Covered/Secured with Dry Gauze, Secured with Tape -Other Covering #6 R Buttocks -Ulcer Cleansing -Foul Odor after Cleansing -Other Dressing abd applied per HH staff, collagen , calcium alginate, abd -Primary Dressing Covered/Secured with Dry Gauze, Secured with Tape #5 L Buttocks -Ulcer Cleansing -Foul Odor after Cleansing -Other Dressing abd drsg per HH staff. calcium alginate, collagen, mepilex -Primary Dressing Covered/Secured with Dry Gauze, Secured with Tape Treatment Response Procedure Tolerated Well Pain Scale: 0-10 Numeric Is Patient Pain Free? Yes Yes - Visit Discharge Discharge Condition Stable Stable Stable Ambulatory Status Wheelchair Wheelchair Wheelchair Transportation Private Auto Private Auto Accompanied by Radha aide Medication Reconcilliation completed & Yes No provided to patient/care provider Clinical Summary of Care Provided Yes Yes Notes: HBO AFTER Facility Type Home Health Orders Sent 01/31/20 10:24 Wound Care Nurse 3 #7 Sacral -Ulcer Cleansing Wound Cleanser -Foul Odor after Cleansing No -Other Dressing Hrydrogel/Radames Alginate -Primary Dressing Covered/Secured with Dry Gauze,Other -Other Covering Mepilex #6 R Buttocks -Ulcer Cleansing Wound Cleanser -Foul Odor after Cleansing No -Other Dressing hydrogel/Radames Aliginate/ Mepilex -Primary Dressing Covered/Secured with Dry Gauze #5 L Buttocks -Ulcer Cleansing Wound Cleanser -Foul Odor after Cleansing No -Other Dressing hydrogel/Radames Alginate/ Mepilex -Primary Dressing Covered/Secured with Dry Gauze Treatment Response Procedure Tolerated Well Pain Scale: 0-10 Numeric Is Patient Pain Free? Yes WC - Visit Discharge Discharge Condition Stable Ambulatory Status Wheelchair Transportation Private Auto Accompanied by Medication Reconcilliation completed & provided to patient/care provider Clinical Summary of Care Provided Notes: Pt to do HBO Tx after dr.visit . Post VS done at this time. Acetic Acid wash done at home prior to drsg changes by HH. Facility Type Home Health Orders Sent Yes Wound debrided: Sacral Wound Grade/Stage: Stage IV Type of Debridement: Excisional debridement Anesthesia Used: 4% Lidocaine Solution Depth: Down to and including healthy tissue, in the subcutaneous layer Percentage of wound debrided: 100 Instrument Used: 5mm curette Tissue Removed: Slough and devitalized tissue Severity: Fat Layer Exposed Amount of bleeding with debridement: Mild Bleeding Controlled with: Pressure Patient tolerated procedure well - Additional Wound Wound debrided: Left buttock Wound Grade/Stage: Stage IV Type of Debridement: Excisional debridement Anesthesia Used: 4% Lidocaine Solution Depth: Down to and including healthy tissue, in the subcutaneous layer Percentage of wound debrided: 100 Instrument Used: 5mm curette Tissue Removed: Slough and devitalized tissue Severity: Fat Layer Exposed Amount of bleeding with debridement: Mild Bleeding Controlled with: Pressure Patient tolerated procedure: Patient tolerated procedure well - Additional Wound Wound debrided: Right buttock Wound Grade/Stage: Stage IV Type of Debridement: Excisional debridement Anesthesia Used: 4% Lidocaine Solution Depth: Down to and including healthy tissue, in the subcutaneous layer Percentage of wound debrided: 100 Tissue Removed: Slough and devitalized tissue Severity: Fat Layer Exposed Amount of bleeding with debridement: Mild Bleeding Controlled with: Pressure Patient tolerated procedure: Patient tolerated procedure well Assessment/Plan Active Problems (Last Updated 12/14/19 @ 15:[address] Meena Coyne DO) Sacral decubitus ulcer, stage IV (Acute) Decubitus ulcer of right buttock, stage 4 (Chronic) Decubitus ulcer of left buttock, stage 4 (Chronic) Chronic osteomyelitis involving pelvic region and thigh (Chronic) Paraplegia (Chronic) Assessment: Same as above. Plan: Debridement done as documented above, procedure well-tolerated. Left buttock only slightly tender today however increased slough burden. Will start on ciprofloxacin per culture and sensitivity. Continue 10 minute Acetic acid soak to all ulcers then calcium alginate/collagen dressing. Change daily to twice daily depending on drainage. Continue optimal dietary and protein intake. Offloading also recommended. His questions were answered and they were advised to call with any further questions or concerns. Follow up in 2 weeks. This note was generated with [employer] dictation software. It may contain incorrect words, spelling, and punctuation that were not noted in checking the note before signing. [id number]: [id number] Oxana subq tissue 20 sq cm/< Add On Codes: 61866 Oxana subq tissue add-on - Additional square centimeter debrided, please refer to clinical note.
--- NOTE | 2020-01-31 12:55 | PCM.HBO.PN ---
History of Present Illness Date of Service: 01/31/20 Presenting Chief Complaint: Non healing, chronic decubitus pressure ulcers, stage IV, with osteomyelitis - thigh, buttock, sacrum. GABBI CARBAJAL is a 34 year old currently undergoing hyperbaric oxygen therapy for Stage IV pressure ulcers with osteomyelitis of the thigh, buttocks, and sacrum. Progress: This represents the 72nd such session of hyperbaric oxygen therapy. The patient appears to be tolerating HBO therapy well. Tolerance of hyperbaric oxygen therapy: Hyperbaric oxygen therapy was administered as per the facility's protocol. HBO therapy was administered at 2 octavio for 90 minutes with no air breaks. The patient tolerated hyperbaric oxygen therapy well, without complaints or complications. Upon emergence from the hyperbaric chamber, the patient's vital signs remained stable. The patient was discharged in good condition. Pre- and post- blood glucose measurements are documented elsewhere. Past Medical History Chronic Problems (Last Updated 12/14/19 @ 15:[address] Meena Coyne, ) Decubitus ulcer of right buttock, stage 4 (Chronic) Decubitus ulcer of left buttock, stage 4 (Chronic) Chronic osteomyelitis involving pelvic region and thigh (Chronic) Paraplegia (Chronic) Sacral decubitus ulcer, stage IV (Chronic) Decubitus ulcer of right buttock, stage 4 (Chronic) Decubitus ulcer of left buttock, stage 4 (Chronic) Chronic osteomyelitis involving pelvic region and thigh (Chronic) Paraplegia (Chronic) Allergies/Adverse Reactions: Allergies lidocaine Allergy (Verified 09/03/19 13:05) Unknown Home Medications: Ambulatory Orders Medication Instructions Recorded Sitagliptin Phosphate [Januvia] 100 mg PO DAILY 10/11/17 Baclofen 5 mg PO BID 10/12/18 Diazepam [Valium] 5 mg PO BID 10/12/18 Fentanyl 200 ea TD 10/12/18 Ferrous Sulfate 325 mg PO 10/12/18 Insulin Glargine,Hum.rec.anlog 10 unit SQ 10/12/18 [Lantus Solostar] Insulin Lispro [Humalog KwikPen] unit SQ 10/12/18 Magnesium Oxide [Magnesium] 400 mg PO BID 10/12/18 Melatonin 3 mg PO 10/12/18 Metoclopramide HCl [Reglan] 5 mg PO TID 10/12/18 Oxycodone [Oxyfast] 30 mg PO Q4H PRN 10/12/18 Pregabalin [Lyrica] 50 mg PO BID 10/12/18 Sitagliptin Phosphate [Januvia] 100 mg PO 10/12/18 traZODone [Desyrel] 50 mg PO QHS 10/12/18 Meloxicam 7.5 mg PO BID PRN 05/17/19 Methenamine Hippurate [Hiprex] 1 gm PO BID 05/17/19 Maternal Family History: No pertinent history Smoking Status: Former smoker Tobacco Use: Non-smoker Physical Exam Vital Signs Temp Pulse Resp BP 97.4 F L 72 18 143/71 H 01/31/20 10:55 01/31/20 10:55 01/31/20 10:55 01/31/20 10:55 General: Alert, Oriented x3, Cooperative, No apparent distress HEENT: Atraumatic, Normocephalic Lungs: Normal air movement Psych/Mental Status: Normal Affect Assessment/Plan Active Problems (Last Updated 12/14/19 @ 15:[address] Meena Coyne, ) Sacral decubitus ulcer, stage IV (Acute) Decubitus ulcer of right buttock, stage 4 (Chronic) Decubitus ulcer of left buttock, stage 4 (Chronic) Chronic osteomyelitis involving pelvic region and thigh (Chronic) Paraplegia (Chronic) The patient appears to be tolerating hyperbaric oxygen therapy well, which will be continued as per the patient's medical plan. 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
[2020-01-31 13:00] LABS: Bedside Glucose 82 mg/dL (70-110)
[2020-02-01 10:35] LABS: Bedside Glucose 192 mg/dL (70-110)
[2020-02-01 11:03] VITALS: BP 110/72; BP 129/71; PULSE 73; PULSE 82; RESP 16; TEMP 35.9; TEMP 36.2
--- NOTE | 2020-02-01 12:51 | PCM.HBO.PN ---
History of Present Illness Date of Service: 02/01/20 Presenting Chief Complaint: Non healing, chronic decubitus pressure ulcers, stage IV, with osteomyelitis - thigh, buttock, sacrum. GABBI CARBAJAL is a 34 year old currently undergoing hyperbaric oxygen therapy for Stage IV pressure ulcers with osteomyelitis of the thigh, buttocks, and sacrum. Progress: This represents the 73nd such session of hyperbaric oxygen therapy. The patient appears to be tolerating HBO therapy well. Tolerance of hyperbaric oxygen therapy: Hyperbaric oxygen therapy was administered as per the facility's protocol. HBO therapy was administered at 2 octavio for 90 minutes with no air breaks. The patient tolerated hyperbaric oxygen therapy well, without complaints or complications. Upon emergence from the hyperbaric chamber, the patient's vital signs remained stable. The patient was discharged in good condition. Pre- and post- blood glucose measurements are documented elsewhere. Past Medical History Chronic Problems (Last Updated 12/14/19 @ 15:[address] Meena Coyne, ) Decubitus ulcer of right buttock, stage 4 (Chronic) Decubitus ulcer of left buttock, stage 4 (Chronic) Chronic osteomyelitis involving pelvic region and thigh (Chronic) Paraplegia (Chronic) Sacral decubitus ulcer, stage IV (Chronic) Decubitus ulcer of right buttock, stage 4 (Chronic) Decubitus ulcer of left buttock, stage 4 (Chronic) Chronic osteomyelitis involving pelvic region and thigh (Chronic) Paraplegia (Chronic) Allergies/Adverse Reactions: Allergies lidocaine Allergy (Verified 09/03/19 13:05) Unknown Home Medications: Ambulatory Orders Medication Instructions Recorded Sitagliptin Phosphate [Januvia] 100 mg PO DAILY 10/11/17 Baclofen 5 mg PO BID 10/12/18 Diazepam [Valium] 5 mg PO BID 10/12/18 Fentanyl 200 ea TD 10/12/18 Ferrous Sulfate 325 mg PO 10/12/18 Insulin Glargine,Hum.rec.anlog 10 unit SQ 10/12/18 [Lantus Solostar] Insulin Lispro [Humalog KwikPen] unit SQ 10/12/18 Magnesium Oxide [Magnesium] 400 mg PO BID 10/12/18 Melatonin 3 mg PO 10/12/18 Metoclopramide HCl [Reglan] 5 mg PO TID 10/12/18 Oxycodone [Oxyfast] 30 mg PO Q4H PRN 10/12/18 Pregabalin [Lyrica] 50 mg PO BID 10/12/18 Sitagliptin Phosphate [Januvia] 100 mg PO 10/12/18 traZODone [Desyrel] 50 mg PO QHS 10/12/18 Meloxicam 7.5 mg PO BID PRN 05/17/19 Methenamine Hippurate [Hiprex] 1 gm PO BID 05/17/19 Maternal Family History: No pertinent history Smoking Status: Former smoker Tobacco Use: Non-smoker Physical Exam Vital Signs Temp Pulse Resp BP 96.7 F L 82 16 110/72 02/01/20 11:03 02/01/20 11:03 02/01/20 11:03 02/01/20 11:03 General: Alert, Cooperative, No apparent distress HEENT: Atraumatic, Normocephalic Lungs: Normal air movement Psych/Mental Status: Normal Affect, Appropriate Assessment/Plan Active Problems (Last Updated 12/14/19 @ 15:[address] Meena Coyne, DO) Sacral decubitus ulcer, stage IV (Acute) Decubitus ulcer of right buttock, stage 4 (Chronic) Decubitus ulcer of left buttock, stage 4 (Chronic) Chronic osteomyelitis involving pelvic region and thigh (Chronic) Paraplegia (Chronic) The patient appears to be tolerating hyperbaric oxygen therapy well, which will be continued as per the patient's medical plan. 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
[2020-02-01 13:05] LABS: Bedside Glucose 99 mg/dL (70-110)
== END 2020-02-11 23:59 ==
LOC: WC 10:00
PROVIDERS: Visit Provider Internal Medicine
DX: L89.154 Pressure ulcer of sacral region, stage 4 (principal); L89.324 Pressure ulcer of left buttock, stage 4; L89.314 Pressure ulcer of right buttock, stage 4; G82.20 Paraplegia, unspecified; M86.68 Other chronic osteomyelitis, other site
CPT/HCPCS: 11042; 11045; 82962; 87070; 87075; 87077; 87186; 87205; 99183; 99211; G0277; G0463

== ENCOUNTER 2020-03-10 10:00 | Outpatient (RCR) | payer OTHER, SELFPAY ==
[2020-01-31 09:30] VITALS: BMI 21.8
[2020-02-12 00:25] VITALS: BP 129/71; PULSE 73; RESP 16; TEMP 36.2
[2020-02-14 09:24] VITALS: BP 111/67; PULSE 81; RESP 18; TEMP 36.6; BMI 21.8
--- NOTE | 2020-02-14 10:54 | PN.PCM_ITS ---
(1) Sacral decubitus ulcer, stage IV Status: Chronic Code(s): L89.154 - Pressure ulcer of sacral region, stage 4 (2) Chronic osteomyelitis involving pelvic region and thigh Status: Chronic Code(s): M86.659 - Other chronic osteomyelitis, unspecified thigh (3) Decubitus ulcer of left buttock, stage 4 Status: Chronic Code(s): L89.324 - Pressure ulcer of left buttock, stage 4 (4) Decubitus ulcer of right buttock, stage 4 Status: Chronic Code(s): L89.314 - Pressure ulcer of right buttock, stage 4 (5) Paraplegia Status: Chronic Code(s): G82.20 - Paraplegia, unspecified Type of Wound Date of Service: 02/14/20 Chief Complaint: Non healing, chronic decubitus pressure ulcers, stage IV, with osteomyelitis - thigh, buttock, sacrum. History of Wound: Mr. Joyce is a 33yo well known to the wound center but was last seen here over a month ago. Initial sacral ulcer was said to have started in November and Buttock ulcers were noted subsequently. He has had an extensive hospital stay over the last couple of months following a work related injury. Both during his hopsital and shelter stays, he had wound care ranging from surgical debridement, wound vac and collagen use. He was scheduled to be restarted on his wound Vac prior to his discharge from the [facility]. He reports significant drainage from the wounds. Also of note is a history of osteomyelitis for which he was on a 6 week IV antibiotic. His however states they were informed that he had developed chronic extensive pelvic area osteomyelitis. He feels well otherwise at this time and denies chills, fever,nausea, vomitting or change in bowel habit. 02/22/2019: Above, he was last seen here over a month ago. Had an extensive hospital stay [facility] due to compli cations from prior neck surgery. They state that his ulcers have been stable. Been doing the acetic acid soak for 10 minutes and then calcium alginate/collagen dressings. Is any concerns at this time. Progress of Wound: No new concerns at this time. Has completed antibiotics. - Physical Exam Vital Signs Temp Pulse Resp BP 97.9 F 81 18 111/67 02/14/20 09:24 02/14/20 09:24 02/14/20 09:24 02/14/20 09:24 General: Alert, Oriented x3, Cooperative, No apparent distress HEENT: Atraumatic, Normocephalic Oral: Moist Mucosa Neck: Supple Lungs: Normal air movement Extremities: No cyanosis Skin: Ulcer/ Wound Wound Measurements and Assessment WC - Nurse 1 - General Ulcer Measurement Start: 02/14/20 09:23 Freq: Status: Active Protocol: Activity Type Activity Date Activity User E-Sign Co-Sign Detail Recorded Client Recorded Date Recorded By Document 02/14/20 09:24 RB [id number] 02/14/20 09:31 RB 02/14/20 09:24 Wound Center Nurse 1 [Ulcer Assessment] #7 Sacral -Combined with other wound No -Current Size (cm) - Length 5.6 -Current Size (cm) - Width 12.2 -Current Size (cm) - Depth 1.2 -Total Square Cm 68.32 -Tunneling No -Undermining/Tunneling No -Circular Undermining No -Exudate Amt Large -Exudate Type Serosanguineous -Wound Margin Thickened & Rolled Under -Granulation Amt Large (67-100%) -Granulation Quality [place],Red -Slough/Fibrin Yes -Necrosis Amt Small (1-33%) -Necrotic Tissue Type Adherent Slough -Structure Exposed N/A -Texture (Sheyla-wound Skin Appearance) Scarring -Moisture (Sheyla-wound Skin Appearance Assessed ) -Color (Sheyla-wound Skin Appearance) Assessed -Temperature (Sheyla-wound Skin No Abnormality Appearance) (Pt Warm) -Tenderness on Palpation (Sheyla-wound No Skin Appearance) -Ulcer Cleansing Wound Cleanser -Foul Odor after Cleansing No #6 R Buttocks -Current Size (cm) - Length 8 -Current Size (cm) - Width 3.3 -Current Size (cm) - Depth 1.5 -Total Square Cm 26.4 -Tunneling No -Undermining/Tunneling No -Circular Undermining No -Exudate Amt Large -Exudate Type Serosanguineous -Wound Margin Thickened & Rolled Under -Granulation Amt Large (67-100%) -Granulation Quality Red -Slough/Fibrin Yes -Necrosis Amt Small (1-33%) -Necrotic Tissue Type Adherent Slough -Structure Exposed N/A -Texture (Sheyla-wound Skin Appearance) Assessed, Scarring -Moisture (Sheyla-wound Skin Appearance Assessed ) -Color (Sheyla-wound Skin Appearance) Assessed -Temperature (Sheyla-wound Skin No Abnormality Appearance) (Pt Warm) -Tenderness on Palpation (Sheyla-wound No Skin Appearance) -Ulcer Cleansing Wound Cleanser -Foul Odor after Cleansing No #5 L Buttocks -Combined with other wound No -Current Size (cm) - Length 8 -Current Size (cm) - Width 5.3 -Current Size (cm) - Depth 2 -Total Square Cm 42.4 -Tunneling No -Undermining/Tunneling No -Circular Undermining No -Exudate Amt Large -Exudate Type Serosanguineous -Wound Margin Thickened & Rolled Under -Granulation Amt Medium (34-66%) -Granulation Quality Red -Slough/Fibrin Yes -Necrosis Amt Small (1-33%) -Necrotic Tissue Type Adherent Slough -Structure Exposed N/A -Texture (Sheyla-wound Skin Appearance) Assessed, Scarring -Moisture (Sheyla-wound Skin Appearance Assessed ) -Color (Sheyla-wound Skin Appearance) Assessed -Temperature (Sheyla-wound Skin No Abnormality Appearance) (Pt Warm) -Tenderness on Palpation (Sheyla-wound No Skin Appearance) -Ulcer Cleansing Wound Cleanser -Foul Odor after Cleansing No WC - Nurse 2 - General Ulcer CM Notes Start: 02/14/20 09:23 Freq: Status: Active Protocol: Activity Type Activity Date Activity User E-Sign Co-Sign Detail Recorded Client Recorded Date Recorded By Document 02/14/20 09:52 MW [id number] 02/14/20 09:58 MW 02/14/20 09:52 Wound Center Nurse 2 [Procedure/Treatment] #7 Sacral -Time 09:52 -Correct Patient Yes -Correct Side, Site, Position Yes -Correct Procedure Yes -Procedure Performed Yes -Type of Procedure Debridement -Clinical Debridement Subcutaneous -Tissue Removed Subcutaneous -Post Debridement (cm) - Length 5.0 -Post Debridement (cm) - Width 12.5 -Post Debridement (cm) - Depth 1.6 -Total Square (Post) (cm) 62.50 -Area of Debridement (cm) - Length 5.0 -Area of Debridement (cm) - Width 12.5 -Total Square (Area) (cm) 62.50 -Tunneling No -Undermining/Tunneling No -Circular Undermining No -Wound/Ulcer Outcome Not Healed -Ulcer Cleansing Rinsed/ Irrigated with Saline -Foul Odor after Cleansing No -Bioengineered Tissue No -Bleeding Controlled with Pressure -Offloading No -Treatment Response Procedure Tolerated Well -Debridement - Subq, 1st 20sq cm Yes -Debridement, SubQ, ea addt'l 20sq cm 6 or part thereof #6 R Buttocks -Time 09:52 -Correct Patient Yes -Correct Side, Site, Position Yes -Correct Procedure Yes -Procedure Performed Yes -Type of Procedure Debridement -Clinical Debridement Subcutaneous -Tissue Removed Subcutaneous -Post Debridement (cm) - Length 8.0 -Post Debridement (cm) - Width 3.5 -Post Debridement (cm) - Depth 1.6 -Total Square (Post) (cm) 28.00 -Area of Debridement (cm) - Length 8.0 -Area of Debridement (cm) - Width 3.5 -Total Square (Area) (cm) 28.00 -Tunneling No -Undermining/Tunneling No -Circular Undermining No -Wound/Ulcer Outcome Not Healed -Ulcer Cleansing Rinsed/ Irrigated with Saline -Foul Odor after Cleansing No -Bioengineered Tissue No -Bleeding Controlled with Pressure -Offloading No -Treatment Response Procedure Tolerated Well -Debridement - Subq, 1st 20sq cm No #5 L Buttocks -Time 09:53 -Correct Patient Yes -Correct Side, Site, Position Yes -Correct Procedure Yes -Procedure Performed Yes -Type of Procedure Debridement -Clinical Debridement Subcutaneous -Tissue Removed Subcutaneous -Post Debridement (cm) - Length 8.5 -Post Debridement (cm) - Width 5.0 -Post Debridement (cm) - Depth 2.0 -Total Square (Post) (cm) 42.50 -Area of Debridement (cm) - Length 8.5 -Area of Debridement (cm) - Width 5.0 -Total Square (Area) (cm) 42.50 -Tunneling No -Undermining/Tunneling No -Circular Undermining No -Wound/Ulcer Outcome Not Healed -Ulcer Cleansing Rinsed/ Irrigated with Saline -Foul Odor after Cleansing No -Bioengineered Tissue No -Bleeding Controlled with Pressure -Offloading No -Treatment Response Procedure Tolerated Well -Debridement - Subq, 1st 20sq cm No [See Physician Procedure note for Specifics] Pain Scale: 0-10 Numeric [Pain] -Is Patient Pain Free? Yes WC - Nurse 3 - General Ulcer D/C NN Start: 02/14/20 09:23 Freq: Status: Active Protocol: Activity Type Activity Date Activity User E-Sign Co-Sign Detail Recorded Client Recorded Date Recorded By Document 02/14/20 10:03 [facility] [id number] 02/14/20 10:06 [facility] 02/14/20 10:03 Wound Care Nurse 3 [Wound Dressing] #7 Sacral -Ulcer Cleansing Rinsed/ Irrigated with Saline -Foul Odor after Cleansing No -Primary Dressing Applied Other -Other Dressing collagen, calcium alginate, mepilex, per nurse #6 R Buttocks -Ulcer Cleansing Rinsed/ Irrigated with Saline -Foul Odor after Cleansing No -Primary Dressing Applied Other -Other Dressing collagen, calcium alginate, mepilex per nurse #5 L Buttocks -Ulcer Cleansing Rinsed/ Irrigated with Saline -Foul Odor after Cleansing No -Primary Dressing Applied Other -Other Dressing collagen, calcium alginate, mepilex per nurse [Post Procedure Tolerated] -Treatment Response Procedure Tolerated Well Pain Scale: 0-10 Numeric [Pain] -Is Patient Pain Free? Yes - Visit Discharge [Visit Discharge Information] -Discharge Condition Stable -Ambulatory Status Wheelchair -Transportation Private Auto -Accompanied by nurse [Facility Notification] -Facility Type Home Health Musculoskeletal: No Muscle Wasting Neurological: Cranial nerves II-XII grossly intact Psych/Mental Status: Normal Affect Debridement Note Post-Debridement Measurements/Treatment - Nurse 2 - General Ulcer CM Notes Start: 02/14/20 09:23 Freq: Status: Active Protocol: Activity Type Activity Date Activity User E-Sign Co-Sign Detail Recorded Client Recorded Date Recorded By Document 02/14/20 09:52 [id number] 02/14/20 09:58 MW 02/14/20 09:52 Wound Center Nurse 2 #7 Sacral -Time 09:52 -Correct Patient Yes -Correct Side, Site, Position Yes -Correct Procedure Yes -Procedure Performed Yes -Type of Procedure Debridement -Clinical Debridement Subcutaneous -Tissue Removed Subcutaneous -Post Debridement (cm) - Length 5.0 -Post Debridement (cm) - Width 12.5 -Post Debridement (cm) - Depth 1.6 -Total Square (Post) (cm) 62.50 -Area of Debridement (cm) - Length 5.0 -Area of Debridement (cm) - Width 12.5 -Total Square (Area) (cm) 62.50 -Tunneling No -Undermining/Tunneling No -Circular Undermining No -Wound/Ulcer Outcome Not Healed -Ulcer Cleansing Rinsed/ Irrigated with Saline -Foul Odor after Cleansing No -Bioengineered Tissue No -Bleeding Controlled with Pressure -Offloading No -Treatment Response Procedure Tolerated Well -Debridement - Subq, 1st 20sq cm Yes -Debridement, SubQ, ea addt'l 20sq cm 6 or part thereof #6 R Buttocks -Time 09:52 -Correct Patient Yes -Correct Side, Site, Position Yes -Correct Procedure Yes -Procedure Performed Yes -Type of Procedure Debridement -Clinical Debridement Subcutaneous -Tissue Removed Subcutaneous -Post Debridement (cm) - Length 8.0 -Post Debridement (cm) - Width 3.5 -Post Debridement (cm) - Depth 1.6 -Total Square (Post) (cm) 28.00 -Area of Debridement (cm) - Length 8.0 -Area of Debridement (cm) - Width 3.5 -Total Square (Area) (cm) 28.00 -Tunneling No -Undermining/Tunneling No -Circular Undermining No -Wound/Ulcer Outcome Not Healed -Ulcer Cleansing Rinsed/ Irrigated with Saline -Foul Odor after Cleansing No -Bioengineered Tissue No -Bleeding Controlled with Pressure -Offloading No -Treatment Response Procedure Tolerated Well -Debridement - Subq, 1st 20sq cm No #5 L Buttocks -Time 09:53 -Correct Patient Yes -Correct Side, Site, Position Yes -Correct Procedure Yes -Procedure Performed Yes -Type of Procedure Debridement -Clinical Debridement Subcutaneous -Tissue Removed Subcutaneous -Post Debridement (cm) - Length 8.5 -Post Debridement (cm) - Width 5.0 -Post Debridement (cm) - Depth 2.0 -Total Square (Post) (cm) 42.50 -Area of Debridement (cm) - Length 8.5 -Area of Debridement (cm) - Width 5.0 -Total Square (Area) (cm) 42.50 -Tunneling No -Undermining/Tunneling No -Circular Undermining No -Wound/Ulcer Outcome Not Healed -Ulcer Cleansing Rinsed/ Irrigated with Saline -Foul Odor after Cleansing No -Bioengineered Tissue No -Bleeding Controlled with Pressure -Offloading No -Treatment Response Procedure Tolerated Well -Debridement - Subq, 1st 20sq cm No Pain Scale: 0-10 Numeric Is Patient Pain Free? Yes WC - Nurse 3 - General Ulcer D/C NN Start: 02/14/20 09:23 Freq: Status: Active Protocol: Activity Type Activity Date Activity User E-Sign Co-Sign Detail Recorded Client Recorded Date Recorded By Document 02/14/20 10:03 [facility] [id number] 02/14/20 10:06 [facility] 02/14/20 10:03 Wound Care Nurse 3 #7 Sacral -Ulcer Cleansing Rinsed/ Irrigated with Saline -Foul Odor after Cleansing No -Primary Dressing Applied Other -Other Dressing collagen, calcium alginate, mepilex, per nurse #6 R Buttocks -Ulcer Cleansing Rinsed/ Irrigated with Saline -Foul Odor after Cleansing No -Primary Dressing Applied Other -Other Dressing collagen, calcium alginate, mepilex per nurse #5 L Buttocks -Ulcer Cleansing Rinsed/ Irrigated with Saline -Foul Odor after Cleansing No -Primary Dressing Applied Other -Other Dressing collagen, calcium alginate, mepilex per nurse Treatment Response Procedure Tolerated Well Pain Scale: 0-10 Numeric Is Patient Pain Free? Yes WC - Visit Discharge Discharge Condition Stable Ambulatory Status Wheelchair Transportation Private Auto Accompanied by nurse Facility Type Home Health Wound debrided: Sacral Wound Grade/Stage: Stage IV Type of Debridement: Excisional debridement Anesthesia Used: 4% Lidocaine Solution Depth: Down to and including healthy tissue, in the subcutaneous layer Percentage of wound debrided: 100 Instrument Used: 5mm curette Tissue Removed: Slough and devitalized tissue Severity: Fat Layer Exposed Amount of bleeding with debridement: Mild Bleeding Controlled with: Pressure Patient tolerated procedure well - Additional Wound Wound debrided: Left buttock Wound Grade/Stage: Stage IV Type of Debridement: Excisional debridement Anesthesia Used: 4% Lidocaine Solution Depth: Down to and including healthy tissue, in the subcutaneous layer Percentage of wound debrided: 100 Instrument Used: 5mm curette Tissue Removed: Slough and devitalized tissue Severity: Fat Layer Exposed Amount of bleeding with debridement: Mild Bleeding Controlled with: Pressure Patient tolerated procedure: Patient tolerated procedure well - Additional Wound Wound debrided: Right buttock Wound Grade/Stage: Stage IV Type of Debridement: Excisional debridement Anesthesia Used: 4% Lidocaine Solution Depth: Down to and including healthy tissue, in the subcutaneous layer Percentage of wound debrided: 100 Instrument Used: 5mm curette Tissue Removed: Slough and devitalized tissue Severity: Fat Layer Exposed Amount of bleeding with debridement: Mild Bleeding Controlled with: Pressure Patient tolerated procedure: Patient tolerated procedure well Assessment/Plan Active Problems (Last Updated 12/14/19 @ 15:[address] Meena Coyne, DO) Sacral decubitus ulcer, stage IV (Chronic) Decubitus ulcer of right buttock, stage 4 (Chronic) Decubitus ulcer of left buttock, stage 4 (Chronic) Chronic osteomyelitis involving pelvic region and thigh (Chronic) Paraplegia (Chronic) Assessment: Same as above. Plan: Debridement done as documented above, procedure well-tolerated. Tenderness and slough burden have improved. Better granulation tissue. Has completed his antibiotics. Continue 10 minute Acetic acid soak to all ulcers then calcium alginate/collagen dressing. Change daily to twice daily depending on drainage. Continue optimal dietary and protein intake. Offloading also recommended. His questions were answered and they were advised to call with any further questions or concerns. Follow up in 2 weeks. This note was generated with [employer] software. It may contain incorrect words, spelling, and punctuation that were not noted in checking the note before signing. [id number]: [id number] Oxana subq tissue 20 sq cm/< Add On Codes: 24987 Oxana subq tissue add-on - x5. Additional square centimeters debrided. Please refer to clinical note.
[2020-02-18 10:20] LABS: Bedside Glucose 173 mg/dL (70-110)
[2020-02-18 10:49] VITALS: BP 113/66; BP 138/50; PULSE 50; PULSE 76; RESP 16; TEMP 36.3; TEMP 36.4
[2020-02-18 12:35] LABS: Bedside Glucose 108 mg/dL (70-110)
--- NOTE | 2020-02-18 13:09 | HBO.PN.PCM_ITS ---
History of Present Illness Date of Service: 02/18/20 Presenting Chief Complaint: Non healing, chronic decubitus pressure ulcers, stage IV, with osteomyelitis - thigh, buttock, sacrum. GABBI CARBAJAL is a 34 year old currently undergoing hyperbaric oxygen therapy for Stage IV pressure ulcers with osteomyelitis of the thigh, buttocks, and sacrum. Progress: This represents the 74th such session of hyperbaric oxygen therapy. He has not had a treatment in a couple weeks because he was having issues with h is ears. The patient appeared to tolerate HBO therapy well today. Tolerance of hyperbaric oxygen therapy: Hyperbaric oxygen therapy was administered as per the facility's protocol. HBO therapy was administered at 2 octavio for 90 minutes with no air breaks. The patient tolerated hyperbaric oxygen therapy well, without complaints or complications. Upon emergence from the hyperbaric chamber, the patient's vital signs remained stable. The patient was discharged in good condition. Pre- and post- blood glucose measurements are documented elsewhere. Past Medical History Chronic Problems (Last Updated 12/14/19 @ 15:[address] Meena Coyne, DO) Sacral decubitus ulcer, stage IV (Chronic) Decubitus ulcer of right buttock, stage 4 (Chronic) Decubitus ulcer of left buttock, stage 4 (Chronic) Chronic osteomyelitis involving pelvic region and thigh (Chronic) Paraplegia (Chronic) Sacral decubitus ulcer, stage IV (Chronic) Decubitus ulcer of right buttock, stage 4 (Chronic) Decubitus ulcer of left buttock, stage 4 (Chronic) Chronic osteomyelitis involving pelvic region and thigh (Chronic) Paraplegia (Chronic) Allergies/Adverse Reactions: Allergies lidocaine Allergy (Verified 09/03/19 13:05) Unknown Home Medications: Ambulatory Orders Medication Instructions Recorded Sitagliptin Phosphate [Januvia] 100 mg PO DAILY 10/11/17 Baclofen 5 mg PO BID 10/12/18 Diazepam [Valium] 5 mg PO BID 10/12/18 Fentanyl 200 ea TD 10/12/18 Ferrous Sulfate 325 mg PO 10/12/18 Insulin Glargine,Hum.rec.anlog 10 unit SQ 10/12/18 [Lantus Solostar] Insulin Lispro [Humalog KwikPen] unit SQ 10/12/18 Magnesium Oxide [Magnesium] 400 mg PO BID 10/12/18 Melatonin 3 mg PO 10/12/18 Metoclopramide HCl [Reglan] 5 mg PO TID 10/12/18 Oxycodone [Oxyfast] 30 mg PO Q4H PRN 10/12/18 Pregabalin [Lyrica] 50 mg PO BID 10/12/18 Sitagliptin Phosphate [Januvia] 100 mg PO 10/12/18 traZODone [Desyrel] 50 mg PO QHS 10/12/18 Meloxicam 7.5 mg PO BID PRN 05/17/19 Methenamine Hippurate [Hiprex] 1 gm PO BID 05/17/19 Maternal Family History: No pertinent history Smoking Status: Former smoker Tobacco Use: Non-smoker Physical Exam Vital Signs Temp Pulse Resp BP 97.5 F L 76 16 113/66 02/18/20 10:49 02/18/20 10:49 02/18/20 10:49 02/18/20 10:49 General: Alert, Oriented x3, Cooperative HEENT: Atraumatic, TM's Clear - Bilateral ear tubes in place, clear/white drainage present in right ear Lungs: Clear to auscultation, Normal air movement Cardiovascular: Regular rate, Regular Rhythm Psych/Mental Status: Normal Affect, Appropriate Assessment/Plan Active Problems (Last Updated 12/14/19 @ 15:[address] Meena Coyne, DO) Sacral decubitus ulcer, stage IV (Chronic) Decubitus ulcer of right buttock, stage 4 (Chronic) Decubitus ulcer of left buttock, stage 4 (Chronic) Chronic osteomyelitis involving pelvic region and thigh (Chronic) Paraplegia (Chronic) The patient appears to be tolerating hyperbaric oxygen therapy well, which will be continued as per the patient's medical plan. 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
[2020-02-19 10:21] LABS: Bedside Glucose 174 mg/dL (70-110)
[2020-02-19 10:45] VITALS: BP 116/72; BP 129/84; PULSE 85; PULSE 92; RESP 16; TEMP 35.6; TEMP 35.8
[2020-02-19 12:55] LABS: Bedside Glucose 189 mg/dL (70-110)
--- NOTE | 2020-02-19 14:03 | PCM.HBO.PN ---
History of Present Illness Date of Service: 02/19/20 Presenting Chief Complaint: Non healing, chronic decubitus pressure ulcers, stage IV, with osteomyelitis - thigh, buttock, sacrum. GABBI CARBAJAL is a 34 year old currently undergoing hyperbaric oxygen therapy for Stage IV pressure ulcers with osteomyelitis of the thigh, buttocks, and sacrum. Progress: This represents the 75th such session of hyperbaric oxygen therapy. The patient appeared to tolerate HBO therapy well today. Tolerance of hyperbaric oxygen therapy: Hyperbaric oxygen therapy was administered as per the facility's protocol. HBO therapy was administered at 2 octavio for 90 minutes with no air breaks. The patient tolerated hyperbaric oxygen therapy well, without complaints or complications. Upon emergence from the hyperbaric chamber, the patient's vital signs remained stable. The patient was discharged in good condition. Pre- and post- blood glucose measurements are documented elsewhere. Past Medical History Chronic Problems (Last Updated 12/14/19 @ 15:[address] Meena Coyne, DO) Sacral decubitus ulcer, stage IV (Chronic) Decubitus ulcer of right buttock, stage 4 (Chronic) Decubitus ulcer of left buttock, stage 4 (Chronic) Chronic osteomyelitis involving pelvic region and thigh (Chronic) Paraplegia (Chronic) Sacral decubitus ulcer, stage IV (Chronic) Decubitus ulcer of right buttock, stage 4 (Chronic) Decubitus ulcer of left buttock, stage 4 (Chronic) Chronic osteomyelitis involving pelvic region and thigh (Chronic) Paraplegia (Chronic) Allergies/Adverse Reactions: Allergies lidocaine Allergy (Verified 09/03/19 13:05) Unknown Home Medications: Ambulatory Orders Medication Instructions Recorded Sitagliptin Phosphate [Januvia] 100 mg PO DAILY 10/11/17 Baclofen 5 mg PO BID 10/12/18 Diazepam [Valium] 5 mg PO BID 10/12/18 Fentanyl 200 ea TD 10/12/18 Ferrous Sulfate 325 mg PO 10/12/18 Insulin Glargine,Hum.rec.anlog 10 unit SQ 10/12/18 [Lantus Solostar] Insulin Lispro [Humalog KwikPen] unit SQ 10/12/18 Magnesium Oxide [Magnesium] 400 mg PO BID 10/12/18 Melatonin 3 mg PO 10/12/18 Metoclopramide HCl [Reglan] 5 mg PO TID 10/12/18 Oxycodone [Oxyfast] 30 mg PO Q4H PRN 10/12/18 Pregabalin [Lyrica] 50 mg PO BID 10/12/18 Sitagliptin Phosphate [Januvia] 100 mg PO 10/12/18 traZODone [Desyrel] 50 mg PO QHS 10/12/18 Meloxicam 7.5 mg PO BID PRN 05/17/19 Methenamine Hippurate [Hiprex] 1 gm PO BID 05/17/19 Maternal Family History: No pertinent history Smoking Status: Former smoker Tobacco Use: Non-smoker Physical Exam Vital Signs Temp Pulse Resp BP 96.0 F L 85 16 116/72 02/19/20 10:45 02/19/20 10:45 02/19/20 10:45 02/19/20 10:45 General: Alert, Oriented x3, Cooperative, No apparent distress, Well developed, Well nourished HEENT: Atraumatic, PERRLA, EOMI, Normocephalic Lungs: Normal air movement Psych/Mental Status: Normal Affect, Appropriate, Alert and oriented to time, place, person, mood and affect Assessment/Plan Active Problems (Last Updated 12/14/19 @ 15:[address] Meena Coyne, DO) Sacral decubitus ulcer, stage IV (Chronic) Decubitus ulcer of right buttock, stage 4 (Chronic) Decubitus ulcer of left buttock, stage 4 (Chronic) Chronic osteomyelitis involving pelvic region and thigh (Chronic) Paraplegia (Chronic) The patient appears to be tolerating hyperbaric oxygen therapy well, which will be continued as per the patient's medical plan. 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
[2020-02-20 10:25] LABS: Bedside Glucose 200 mg/dL (70-110)
[2020-02-20 10:46] VITALS: BP 118/66; BP 143/73; PULSE 101; PULSE 81; RESP 17; RESP 18; TEMP 36.2; TEMP 36.3
--- NOTE | 2020-02-20 12:30 | PCM.HBO.PN ---
History of Present Illness Date of Service: 02/20/20 Presenting Chief Complaint: Non healing, chronic decubitus pressure ulcers, stage IV, with osteomyelitis - thigh, buttock, sacrum. GABBI CARBAJAL is a 34 year old currently undergoing hyperbaric oxygen therapy for Stage IV pressure ulcers with osteomyelitis of the thigh, buttocks, and sacrum. Progress: This represents the 76th such session of hyperbaric oxygen therapy. The patient appeared to tolerate HBO therapy well today. Tolerance of hyperbaric oxygen therapy: Hyperbaric oxygen therapy was administered as per the facility's protocol. HBO therapy was administered at 2 octavio for 90 minutes with no air breaks. The patient tolerated hyperbaric oxygen therapy well, without complaints or complications. Upon emergence from the hyperbaric chamber, the patient's vital signs remained stable. The patient was discharged in good condition. Pre- and post- blood glucose measurements are documented elsewhere. Past Medical History Chronic Problems (Last Updated 12/14/19 @ 15:[address] Meena Coyne, ) Sacral decubitus ulcer, stage IV (Chronic) Decubitus ulcer of right buttock, stage 4 (Chronic) Decubitus ulcer of left buttock, stage 4 (Chronic) Chronic osteomyelitis involving pelvic region and thigh (Chronic) Paraplegia (Chronic) Sacral decubitus ulcer, stage IV (Chronic) Decubitus ulcer of right buttock, stage 4 (Chronic) Decubitus ulcer of left buttock, stage 4 (Chronic) Chronic osteomyelitis involving pelvic region and thigh (Chronic) Paraplegia (Chronic) Allergies/Adverse Reactions: Allergies lidocaine Allergy (Verified 09/03/19 13:05) Unknown Home Medications: Ambulatory Orders Medication Instructions Recorded Sitagliptin Phosphate [Januvia] 100 mg PO DAILY 10/11/17 Baclofen 5 mg PO BID 10/12/18 Diazepam [Valium] 5 mg PO BID 10/12/18 Fentanyl 200 ea TD 10/12/18 Ferrous Sulfate 325 mg PO 10/12/18 Insulin Glargine,Hum.rec.anlog 10 unit SQ 10/12/18 [Lantus Solostar] Insulin Lispro [Humalog KwikPen] unit SQ 10/12/18 Magnesium Oxide [Magnesium] 400 mg PO BID 10/12/18 Melatonin 3 mg PO 10/12/18 Metoclopramide HCl [Reglan] 5 mg PO TID 10/12/18 Oxycodone [Oxyfast] 30 mg PO Q4H PRN 10/12/18 Pregabalin [Lyrica] 50 mg PO BID 10/12/18 Sitagliptin Phosphate [Januvia] 100 mg PO 10/12/18 traZODone [Desyrel] 50 mg PO QHS 10/12/18 Meloxicam 7.5 mg PO BID PRN 05/17/19 Methenamine Hippurate [Hiprex] 1 gm PO BID 05/17/19 Maternal Family History: No pertinent history Smoking Status: Former smoker Tobacco Use: Non-smoker Physical Exam Vital Signs Temp Pulse Resp BP 97.3 F L 101 H 18 118/66 02/20/20 10:46 02/20/20 10:46 02/20/20 10:46 02/20/20 10:46 Assessment/Plan Active Problems (Last Updated 12/14/19 @ 15:[address] Meena Coyne, DO) Sacral decubitus ulcer, stage IV (Chronic) Decubitus ulcer of right buttock, stage 4 (Chronic) Decubitus ulcer of left buttock, stage 4 (Chronic) Chronic osteomyelitis involving pelvic region and thigh (Chronic) Paraplegia (Chronic) The patient appears to be tolerating hyperbaric oxygen therapy well, which will be continued as per the patient's medical plan. 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
[2020-02-20 12:31] LABS: Bedside Glucose 137 mg/dL (70-110)
[2020-02-21 10:26] LABS: Bedside Glucose 180 mg/dL (70-110)
--- NOTE | 2020-02-21 10:37 | PCM.HBO.PN ---
History of Present Illness Date of Service: 02/21/20 Presenting Chief Complaint: Non healing, chronic decubitus pressure ulcers, stage IV, with osteomyelitis - thigh, buttock, sacrum. GABBI CARBAJAL is a 34 year old currently undergoing hyperbaric oxygen therapy for Stage IV pressure ulcers with osteomyelitis of the thigh, buttocks, and sacrum. Progress: This represents the 77th such session of hyperbaric oxygen therapy. The patient appeared to tolerate HBO therapy well today. Tolerance of hyperbaric oxygen therapy: Hyperbaric oxygen therapy was administered as per the facility's protocol. HBO therapy was administered at 2 octavio for 90 minutes with no air breaks. The patient tolerated hyperbaric oxygen therapy well, without complaints or complications. Upon emergence from the hyperbaric chamber, the patient's vital signs remained stable. The patient was discharged in good condition. Pre- and post- blood glucose measurements are documented elsewhere. Past Medical History Chronic Problems (Last Updated 12/14/19 @ 15:[address] Meena Coyne, ) Sacral decubitus ulcer, stage IV (Chronic) Decubitus ulcer of right buttock, stage 4 (Chronic) Decubitus ulcer of left buttock, stage 4 (Chronic) Chronic osteomyelitis involving pelvic region and thigh (Chronic) Paraplegia (Chronic) Sacral decubitus ulcer, stage IV (Chronic) Decubitus ulcer of right buttock, stage 4 (Chronic) Decubitus ulcer of left buttock, stage 4 (Chronic) Chronic osteomyelitis involving pelvic region and thigh (Chronic) Paraplegia (Chronic) Allergies/Adverse Reactions: Allergies lidocaine Allergy (Verified 09/03/19 13:05) Unknown Home Medications: Ambulatory Orders Medication Instructions Recorded Sitagliptin Phosphate [Januvia] 100 mg PO DAILY 10/11/17 Baclofen 5 mg PO BID 10/12/18 Diazepam [Valium] 5 mg PO BID 10/12/18 Fentanyl 200 ea TD 10/12/18 Ferrous Sulfate 325 mg PO 10/12/18 Insulin Glargine,Hum.rec.anlog 10 unit SQ 10/12/18 [Lantus Solostar] Insulin Lispro [Humalog KwikPen] unit SQ 10/12/18 Magnesium Oxide [Magnesium] 400 mg PO BID 10/12/18 Melatonin 3 mg PO 10/12/18 Metoclopramide HCl [Reglan] 5 mg PO TID 10/12/18 Oxycodone [Oxyfast] 30 mg PO Q4H PRN 10/12/18 Pregabalin [Lyrica] 50 mg PO BID 10/12/18 Sitagliptin Phosphate [Januvia] 100 mg PO 10/12/18 traZODone [Desyrel] 50 mg PO QHS 10/12/18 Meloxicam 7.5 mg PO BID PRN 05/17/19 Methenamine Hippurate [Hiprex] 1 gm PO BID 05/17/19 Maternal Family History: No pertinent history Smoking Status: Former smoker Tobacco Use: Non-smoker Physical Exam Vital Signs Temp Pulse Resp BP 97.3 F L 101 H 18 118/66 02/20/20 10:46 02/20/20 10:46 02/20/20 10:46 02/20/20 10:46 General: Alert, Oriented x3, Cooperative, No apparent distress HEENT: Atraumatic, TM's Clear Lungs: Clear to auscultation, Normal air movement Cardiovascular: Regular rate, Regular Rhythm Psych/Mental Status: Normal Affect, Appropriate, Alert and oriented to time, place, person, mood and affect Assessment/Plan Active Problems (Last Updated 12/14/19 @ 15:[address] Meena Coyne, DO) Sacral decubitus ulcer, stage IV (Chronic) Decubitus ulcer of right buttock, stage 4 (Chronic) Decubitus ulcer of left buttock, stage 4 (Chronic) Chronic osteomyelitis involving pelvic region and thigh (Chronic) Paraplegia (Chronic) Treatment Course Number Number of HBO Treatments 91 Ordered Treatment Course Number 1 Treatment # 77 Chamber # 2 Chamber Type Monoplace HBO Diagnosis/Indication Diagnosis/Indication(s) for Standard/Conservative Hyperbaric Therapy Diabetes - Detail Diabetes Diabetes Type II Other - Detail Chronic Refractory Yes Osteomyelitis (specify site in comment) Compromised/Failed Flap/Graft Yes (specify site in comment) 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
[2020-02-21 10:57] VITALS: BP 138/73; BP 141/69; PULSE 72; PULSE 96; RESP 17; RESP 18; TEMP 36.2; TEMP 36.4
[2020-02-21 12:41] LABS: Bedside Glucose 127 mg/dL (70-110)
[2020-02-27 10:25] LABS: Bedside Glucose 191 mg/dL (70-110)
[2020-02-27 10:55] VITALS: BP 127/52; BP 143/67; PULSE 73; PULSE 74; RESP 16; TEMP 36.4; TEMP 36.6
--- NOTE | 2020-02-27 11:43 | PCM.HBO.PN ---
History of Present Illness Date of Service: 02/27/20 Presenting Chief Complaint: Non healing, chronic decubitus pressure ulcers, stage IV, with osteomyelitis - thigh, buttock, sacrum. GABBI CARBAJAL is a 34 year old currently undergoing hyperbaric oxygen therapy for Stage IV pressure ulcers with osteomyelitis of the thigh, buttocks, and sacrum. Progress: This represents the 78th such session of hyperbaric oxygen therapy. The patient appeared to tolerate HBO therapy well today. Tolerance of hyperbaric oxygen therapy: Hyperbaric oxygen therapy was administered as per the facility's protocol. HBO therapy was administered at 2 octavio for 90 minutes with no air breaks. The patient tolerated hyperbaric oxygen therapy well, without complaints or complications. Upon emergence from the hyperbaric chamber, the patient's vital signs remained stable. The patient was discharged in good condition. Pre- and post- blood glucose measurements are documented elsewhere. Past Medical History Chronic Problems (Last Updated 12/14/19 @ 15:[address] Meena Coyne, ) Sacral decubitus ulcer, stage IV (Chronic) Decubitus ulcer of right buttock, stage 4 (Chronic) Decubitus ulcer of left buttock, stage 4 (Chronic) Chronic osteomyelitis involving pelvic region and thigh (Chronic) Paraplegia (Chronic) Sacral decubitus ulcer, stage IV (Chronic) Decubitus ulcer of right buttock, stage 4 (Chronic) Decubitus ulcer of left buttock, stage 4 (Chronic) Chronic osteomyelitis involving pelvic region and thigh (Chronic) Paraplegia (Chronic) Allergies/Adverse Reactions: Allergies lidocaine Allergy (Verified 09/03/19 13:05) Unknown Home Medications: Ambulatory Orders Medication Instructions Recorded Sitagliptin Phosphate [Januvia] 100 mg PO DAILY 10/11/17 Baclofen 5 mg PO BID 10/12/18 Diazepam [Valium] 5 mg PO BID 10/12/18 Fentanyl 200 ea TD 10/12/18 Ferrous Sulfate 325 mg PO 10/12/18 Insulin Glargine,Hum.rec.anlog 10 unit SQ 10/12/18 [Lantus Solostar] Insulin Lispro [Humalog KwikPen] unit SQ 10/12/18 Magnesium Oxide [Magnesium] 400 mg PO BID 10/12/18 Melatonin 3 mg PO 10/12/18 Metoclopramide HCl [Reglan] 5 mg PO TID 10/12/18 Oxycodone [Oxyfast] 30 mg PO Q4H PRN 10/12/18 Pregabalin [Lyrica] 50 mg PO BID 10/12/18 Sitagliptin Phosphate [Januvia] 100 mg PO 10/12/18 traZODone [Desyrel] 50 mg PO QHS 10/12/18 Meloxicam 7.5 mg PO BID PRN 05/17/19 Methenamine Hippurate [Hiprex] 1 gm PO BID 05/17/19 Maternal Family History: No pertinent history Smoking Status: Former smoker Tobacco Use: Non-smoker Physical Exam Vital Signs Temp Pulse Resp BP 97.8 F 74 16 127/52 H 02/27/20 10:55 02/27/20 10:55 02/27/20 10:55 02/27/20 10:55 Assessment/Plan Active Problems (Last Updated 12/14/19 @ 15:[address] Meena Coyne, DO) Sacral decubitus ulcer, stage IV (Chronic) Decubitus ulcer of right buttock, stage 4 (Chronic) Decubitus ulcer of left buttock, stage 4 (Chronic) Chronic osteomyelitis involving pelvic region and thigh (Chronic) Paraplegia (Chronic) The patient appears to be tolerating hyperbaric oxygen therapy well, which will be continued as per the patient's medical plan. 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
[2020-02-27 12:35] LABS: Bedside Glucose 96 mg/dL (70-110)
[2020-02-28 09:17] VITALS: BP 132/79; PULSE 76; TEMP 36.5; BMI 21.8
[2020-02-28 10:02] VITALS: BP 132/80
[2020-02-28 10:05] LABS: Bedside Glucose 143 mg/dL (70-110)
[2020-02-28 10:31] VITALS: BP 116/62; BP 132/80; PULSE 68; PULSE 73; RESP 16; RESP 19; TEMP 35.8; TEMP 35.9
[2020-02-28 12:26] LABS: Bedside Glucose 81 mg/dL (70-110)
--- NOTE | 2020-02-28 12:28 | PCM.WC.PN ---
(1) Sacral decubitus ulcer, stage IV Status: Chronic Code(s): L89.154 - Pressure ulcer of sacral region, stage 4 (2) Chronic osteomyelitis involving pelvic region and thigh Status: Chronic Code(s): M86.659 - Other chronic osteomyelitis, unspecified thigh (3) Decubitus ulcer of left buttock, stage 4 Status: Chronic Code(s): L89.324 - Pressure ulcer of left buttock, stage 4 (4) Decubitus ulcer of right buttock, stage 4 Status: Chronic Code(s): L89.314 - Pressure ulcer of right buttock, stage 4 (5) Paraplegia Status: Chronic Code(s): G82.20 - Paraplegia, unspecified Type of Wound Date of Service: 02/28/20 Chief Complaint: Non healing, chronic decubitus pressure ulcers, stage IV, with osteomyelitis - thigh, buttock, sacrum. History of Wound: Mr. Joyce is a 33yo well known to the wound center but was last seen here over a month ago. Initial sacral ulcer was said to have started in November and Buttock ulcers were noted subsequently. He has had an extensive hospital stay over the last couple of months following a work related injury. Both during his hopsital and prison stays, he had wound care ranging from surgical debridement, wound vac and collagen use. He was scheduled to be restarted on his wound Vac prior to his discharge from the [place]. He reports significant drainage from the wounds. Also of note is a history of osteomyelitis for which he was on a 6 week IV antibiotic. His however states they were informed that he had developed chronic extensive pelvic area osteomyelitis. He feels well otherwise at this time and denies chills, fever,nausea, vomitting or change in bowel habit. 02/22/2019: Above, he was last seen here over a month ago. Had an extensive hospital stay [facility] due to complications from prior neck surgery. They state that his ulcers have been stable. Been doing the acetic acid soak for 10 minutes and then calcium alginate/collagen dressings. Is any concerns at this time. Progress of Wound: Stable/improving ulcers. No new concerns. - Physical Exam Vital Signs Temp Pulse Resp BP 96.7 F L 68 19 H 132/80 H 02/28/20 10:31 02/28/20 10:31 02/28/20 10:31 02/28/20 10:31 General: Alert, Oriented x3, Cooperative, No apparent distress HEENT: Atraumatic, Normocephalic Oral: Moist Mucosa Neck: Supple Lungs: Normal air movement Extremities: No cyanosis, Edema Skin: Ulcer/ Wound Wound Measurements and Assessment WC - Nurse 1 - General Ulcer Measurement Start: 02/14/20 09:23 Freq: Status: Active Protocol: Activity Type Activity Date Activity User E-Sign Co-Sign Detail Recorded Client Recorded Date Recorded By Document 02/28/20 09:17 FRANCO [id number] 02/28/20 09:26 FRANCO 02/28/20 09:17 Wound Center Nurse 1 [Ulcer Assessment] #7 Sacral -Current Size (cm) - Length 5 -Current Size (cm) - Width 11.1 -Current Size (cm) - Depth 0.6 -Total Square Cm 55.5 -Undermining/Tunneling Starts (O' 10 clock) -Undermining/Tunneling Ends (O'clock) 11 -Maximum Distance (cm) 6 -Undermining/Tunneling Starts #2 (O' 2 clock) -Undermining/Tunneling Ends #2 (O' 3 clock) -Maximum Distance #2 (cm) 2.5 -Classification - Thickness Partial Thickness -Exudate Amt Medium -Exudate Type Serosanguineous -Wound Margin Thickened & Rolled Under -Granulation Amt Medium (34-66%) -Granulation Quality Red -Necrosis Amt Medium (34-66%) -Necrotic Tissue Type Adherent Slough -Texture (Sheyla-wound Skin Appearance) Assessed, Scarring -Color (Sheyla-wound Skin Appearance) No Abnormality, Assessed -Temperature (Sheyla-wound Skin No Abnormality Appearance) (Pt Warm) -Tenderness on Palpation (Sheyla-wound No Skin Appearance) -Ulcer Cleansing soap and water -Foul Odor after Cleansing No #6 R Buttocks -Current Size (cm) - Length 9 -Current Size (cm) - Width 3.6 -Current Size (cm) - Depth 1 -Total Square Cm 32.4 -Exudate Amt Medium -Exudate Type Serosanguineous -Wound Margin Thickened & Rolled Under -Granulation Amt Medium (34-66%) -Granulation Quality Red -Necrosis Amt Medium (34-66%) -Necrotic Tissue Type Adherent Slough -Texture (Sheyla-wound Skin Appearance) Assessed, Scarring -Moisture (Sheyla-wound Skin Appearance No Abnormality, ) Assessed -Color (Sheyla-wound Skin Appearance) No Abnormality, Assessed -Temperature (Sheyla-wound Skin No Abnormality Appearance) (Pt Warm) -Tenderness on Palpation (Sheyla-wound No Skin Appearance) -Ulcer Cleansing Rinsed/ Irrigated with Saline -Foul Odor after Cleansing No #5 L Buttocks -Current Size (cm) - Length 7 -Current Size (cm) - Width 6.1 -Current Size (cm) - Depth 2.5 -Total Square Cm 42.7 -Exudate Amt Medium -Exudate Type Serosanguineous -Wound Margin Thickened & Rolled Under -Granulation Amt Medium (34-66%) -Granulation Quality Red -Slough/Fibrin Yes -Necrosis Amt Medium (34-66%) -Necrotic Tissue Type Adherent Slough -Texture (Sheyla-wound Skin Appearance) Assessed, Scarring -Moisture (Sheyla-wound Skin Appearance No Abnormality, ) Assessed -Color (Sheyla-wound Skin Appearance) No Abnormality, Assessed -Temperature (Sheyla-wound Skin No Abnormality Appearance) (Pt Warm) -Tenderness on Palpation (Sheyla-wound No Skin Appearance) -Ulcer Cleansing soap and water -Foul Odor after Cleansing No WC - Nurse 2 - General Ulcer CM Notes Start: 02/14/20 09:23 Freq: Status: Active Protocol: Activity Type Activity Date Activity User E-Sign Co-Sign Detail Recorded Client Recorded Date Recorded By Document 02/28/20 09:36 MW [id number] 02/28/20 09:48 MW 02/28/20 09:36 Wound Center Nurse 2 [Procedure/Treatment] #7 Sacral -Time 09:37 -Correct Patient Yes -Correct Side, Site, Position Yes -Correct Procedure Yes -Procedure Performed Yes -Type of Procedure Debridement -Clinical Debridement Subcutaneous -Tissue Removed Subcutaneous -Post Debridement (cm) - Length 4.0 -Post Debridement (cm) - Width 13.0 -Post Debridement (cm) - Depth 1.5 -Total Square (Post) (cm) 52.00 -Area of Debridement (cm) - Length 4.0 -Area of Debridement (cm) - Width 13.0 -Total Square (Area) (cm) 52.00 -Tunneling No -Undermining/Tunneling No -Circular Undermining No -Wound/Ulcer Outcome Not Healed -Ulcer Cleansing Rinsed/ Irrigated with Saline -Foul Odor after Cleansing No -Bioengineered Tissue No -Bleeding Controlled with Pressure -Offloading No -Treatment Response Procedure Tolerated Well -Debridement - Subq, 1st 20sq cm Yes -Debridement, SubQ, ea addt'l 20sq cm 6 or part thereof #6 R Buttocks -Time 09:37 -Correct Patient Yes -Correct Side, Site, Position Yes -Correct Procedure Yes -Procedure Performed Yes -Type of Procedure Debridement -Clinical Debridement Subcutaneous -Tissue Removed Subcutaneous -Post Debridement (cm) - Length 8.0 -Post Debridement (cm) - Width 3.5 -Post Debridement (cm) - Depth 1.5 -Total Square (Post) (cm) 28.00 -Area of Debridement (cm) - Length 8.0 -Area of Debridement (cm) - Width 3.5 -Total Square (Area) (cm) 28.00 -Tunneling No -Undermining/Tunneling No -Circular Undermining No -Wound/Ulcer Outcome Not Healed -Ulcer Cleansing Rinsed/ Irrigated with Saline -Foul Odor after Cleansing No -Bioengineered Tissue No -Bleeding Controlled with Pressure -Offloading No -Treatment Response Procedure Tolerated Well -Debridement - Subq, 1st 20sq cm No #5 L Buttocks -Time 09:37 -Correct Patient Yes -Correct Side, Site, Position Yes -Correct Procedure Yes -Procedure Performed Yes -Type of Procedure Debridement -Clinical Debridement Subcutaneous -Tissue Removed Subcutaneous -Post Debridement (cm) - Length 8.5 -Post Debridement (cm) - Width 5.0 -Post Debridement (cm) - Depth 2.0 -Total Square (Post) (cm) 42.50 -Area of Debridement (cm) - Length 8.5 -Area of Debridement (cm) - Width 5.0 -Total Square (Area) (cm) 42.50 -Tunneling No -Undermining/Tunneling No -Circular Undermining No -Wound/Ulcer Outcome Not Healed -Ulcer Cleansing Rinsed/ Irrigated with Saline -Foul Odor after Cleansing No -Bioengineered Tissue No -Bleeding Controlled with Pressure -Offloading No -Debridement - Subq, 1st 20sq cm No [See Physician Procedure note for Specifics] Pain Scale: 0-10 Numeric [Pain] -Is Patient Pain Free? Yes WC - Nurse 3 - General Ulcer D/C NN Start: 02/14/20 09:23 Freq: Status: Active Protocol: Activity Type Activity Date Activity User E-Sign Co-Sign Detail Recorded Client Recorded Date Recorded By Document 02/28/20 10:02 RB [id number] 02/28/20 10:05 RB 02/28/20 10:02 Wound Care Nurse 3 [Wound Dressing] #7 Sacral -Other Dressing calcium alginae , collagen, mepilex #6 R Buttocks -Other Dressing collagen, calcium alginate, islkand drsg and abd pad -Primary Dressing Covered/Secured Secured with with Tape #5 L Buttocks -Other Dressing collagen, calcium alginate and islan d drsg and abd pad -Primary Dressing Covered/Secured Secured with with Tape Vital Signs [Blood Pressure] -Blood Pressure (90/60-120/80 mm Hg) 132/80 H -Blood Pressure Mean (mm Hg) 97 -Source Monitor -Position Semi-Fowlers -Blood Pressure Location Left Arm Pain Scale: 0-10 Numeric [Pain] -Is Patient Pain Free? Yes WC - Visit Discharge [Visit Discharge Information] -Discharge Condition Stable -Ambulatory Status Wheelchair -Transportation Private Auto -Medication Reconcilliation completed No & provided to patient/care provider -Clinical Summary of Care Provided Yes Musculoskeletal: No Muscle Wasting Neurological: Cranial nerves II-XII grossly intact Psych/Mental Status: Normal Affect Debridement Note Post-Debridement Measurements/Treatment WC - Nurse 2 - General Ulcer CM Notes Start: 02/14/20 09:23 Freq: Status: Active Protocol: Activity Type Activity Date Activity User E-Sign Co-Sign Detail Recorded Client Recorded Date Recorded By Document 02/14/20 09:52 MW [id number] 02/14/20 09:58 MW Document 02/28/20 09:36 MW [id number] 02/28/20 09:48 MW 02/14/20 02/28/20 09:52 09:36 Wound Center Nurse 2 #7 Sacral -Time 09:52 09:37 -Correct Patient Yes Yes -Correct Side, Site, Position Yes Yes -Correct Procedure Yes Yes -Procedure Performed Yes Yes -Type of Procedure Debridement Debridement -Clinical Debridement Subcutaneous Subcutaneous -Tissue Removed Subcutaneous Subcutaneous -Post Debridement (cm) - Length 5.0 4.0 -Post Debridement (cm) - Width 12.5 13.0 -Post Debridement (cm) - Depth 1.6 1.5 -Total Square (Post) (cm) 62.50 52.00 -Area of Debridement (cm) - Length 5.0 4.0 -Area of Debridement (cm) - Width 12.5 13.0 -Total Square (Area) (cm) 62.50 52.00 -Tunneling No No -Undermining/Tunneling No No -Circular Undermining No No -Wound/Ulcer Outcome Not Healed Not Healed -Ulcer Cleansing Rinsed/ Rinsed/ Irrigated with Irrigated with Saline Saline -Foul Odor after Cleansing No No -Bioengineered Tissue No No -Bleeding Controlled with Pressure Pressure -Offloading No No -Treatment Response Procedure Procedure Tolerated Well Tolerated Well -Debridement - Subq, 1st 20sq cm Yes Yes -Debridement, SubQ, ea addt'l 20sq cm 6 6 or part thereof #6 R Buttocks -Time 09:52 09:37 -Correct Patient Yes Yes -Correct Side, Site, Position Yes Yes -Correct Procedure Yes Yes -Procedure Performed Yes Yes -Type of Procedure Debridement Debridement -Clinical Debridement Subcutaneous Subcutaneous -Tissue Removed Subcutaneous Subcutaneous -Post Debridement (cm) - Length 8.0 8.0 -Post Debridement (cm) - Width 3.5 3.5 -Post Debridement (cm) - Depth 1.6 1.5 -Total Square (Post) (cm) 28.00 28.00 -Area of Debridement (cm) - Length 8.0 8.0 -Area of Debridement (cm) - Width 3.5 3.5 -Total Square (Area) (cm) 28.00 28.00 -Tunneling No No -Undermining/Tunneling No No -Circular Undermining No No -Wound/Ulcer Outcome Not Healed Not Healed -Ulcer Cleansing Rinsed/ Rinsed/ Irrigated with Irrigated with Saline Saline -Foul Odor after Cleansing No No -Bioengineered Tissue No No -Bleeding Controlled with Pressure Pressure -Offloading No No -Treatment Response Procedure Procedure Tolerated Well Tolerated Well -Debridement - Subq, 1st 20sq cm No No #5 L Buttocks -Time 09:53 09:37 -Correct Patient Yes Yes -Correct Side, Site, Position Yes Yes -Correct Procedure Yes Yes -Procedure Performed Yes Yes -Type of Procedure Debridement Debridement -Clinical Debridement Subcutaneous Subcutaneous -Tissue Removed Subcutaneous Subcutaneous -Post Debridement (cm) - Length 8.5 8.5 -Post Debridement (cm) - Width 5.0 5.0 -Post Debridement (cm) - Depth 2.0 2.0 -Total Square (Post) (cm) 42.50 42.50 -Area of Debridement (cm) - Length 8.5 8.5 -Area of Debridement (cm) - Width 5.0 5.0 -Total Square (Area) (cm) 42.50 42.50 -Tunneling No No -Undermining/Tunneling No No -Circular Undermining No No -Wound/Ulcer Outcome Not Healed Not Healed -Ulcer Cleansing Rinsed/ Rinsed/ Irrigated with Irrigated with Saline Saline -Foul Odor after Cleansing No No -Bioengineered Tissue No No -Bleeding Controlled with Pressure Pressure -Offloading No No -Treatment Response Procedure Tolerated Well -Debridement - Subq, 1st 20sq cm No No Pain Scale: 0-10 Numeric Is Patient Pain Free? Yes Yes WC - Nurse 3 - General Ulcer D/C NN Start: 02/14/20 09:23 Freq: Status: Active Protocol: Activity Type Activity Date Activity User E-Sign Co-Sign Detail Recorded Client Recorded Date Recorded By Document 02/14/20 10:03 [facility] [id number] 02/14/20 10:06 [facility] Document 02/28/20 10:02 [id number] 02/28/20 10:05 RB 02/14/20 02/28/20 10:03 10:02 Wound Care Nurse 3 #7 Sacral -Ulcer Cleansing Rinsed/ Irrigated with Saline -Foul Odor after Cleansing No -Primary Dressing Applied Other -Other Dressing collagen, calcium alginae calcium , collagen, alginate, mepilex mepilex, per nurse #6 R Buttocks -Ulcer Cleansing Rinsed/ Irrigated with Saline -Foul Odor after Cleansing No -Primary Dressing Applied Other -Other Dressing collagen, collagen, calcium calcium alginate, alginate, mepilex per islcassie drsg nurse and abd pad -Primary Dressing Covered/Secured with Secured with Tape #5 L Buttocks -Ulcer Cleansing Rinsed/ Irrigated with Saline -Foul Odor after Cleansing No -Primary Dressing Applied Other -Other Dressing collagen, collagen, calcium calcium alginate, alginate and mepilex per islan antwon drsg nurse and abd pad -Primary Dressing Covered/Secured with Secured with Tape Treatment Response Procedure Tolerated Well Vital Signs Blood Pressure (90/60-120/80 mm Hg) 132/80 H Blood Pressure Mean (mm Hg) 97 Source Monitor Position Semi-Fowlers Blood Pressure Location Left Arm Pain Scale: 0-10 Numeric Is Patient Pain Free? Yes Yes WC - Visit Discharge Discharge Condition Stable Stable Ambulatory Status Wheelchair Wheelchair Transportation Private Auto Private Auto Accompanied by nurse Medication Reconcilliation completed & No provided to patient/care provider Clinical Summary of Care Provided Yes Facility Type Home Health Wound debrided: Sacral Wound Grade/Stage: Stage IV Type of Debridement: Excisional debridement Anesthesia Used: 4% Lidocaine Solution Depth: Down to and including healthy tissue, in the subcutaneous layer Percentage of wound debrided: 100 Instrument Used: 5mm curette Tissue Removed: Slough and devitalized tissue Severity: Fat Layer Exposed Amount of bleeding with debridement: Mild Bleeding Controlled with: Pressure Patient tolerated procedure well - Additional Wound Wound debrided: Left buttock Wound Grade/Stage: Stage IV Type of Debridement: Excisional debridement Anesthesia Used: 4% Lidocaine Solution Depth: Down to and including healthy tissue, in the subcutaneous layer Percentage of wound debrided: 100 Instrument Used: 5mm curette Tissue Removed: Slough and devitalized tissue Severity: Fat Layer Exposed Amount of bleeding with debridement: Mild Bleeding Controlled with: Pressure Patient tolerated procedure: Patient tolerated procedure well - Additional Wound Wound debrided: Right buttock Wound Grade/Stage: Stage IV Type of Debridement: Excisional debridement Anesthesia Used: 4% Lidocaine Solution Depth: Down to and including healthy tissue, in the subcutaneous layer Percentage of wound debrided: 100 Instrument Used: 5mm curette Tissue Removed: Slough and devitalized tissue Severity: Fat Layer Exposed Amount of bleeding with debridement: Mild Bleeding Controlled with: Pressure Assessment/Plan Active Problems (Last Updated 12/14/19 @ 15:[address] Meena Coyne, DO) Sacral decubitus ulcer, stage IV (Chronic) Decubitus ulcer of right buttock, stage 4 (Chronic) Decubitus ulcer of left buttock, stage 4 (Chronic) Chronic osteomyelitis involving pelvic region and thigh (Chronic) Paraplegia (Chronic) Assessment: Same as above. Plan: Debridement done as documented above, procedure well-tolerated. Continue 10 minute Acetic acid soak to all ulcers then calcium alginate/collagen dressing. Change daily to twice daily depending on drainage. Continue optimal dietary and protein intake. Offloading also recommended. His questions were answered and they were advised to call with any further questions or concerns. Follow up in 1 week. This note was generated with [email or web address] software. It may contain incorrect words, spelling, and punctuation that were not noted in checking the note before signing. [id number]: [id number] Oxana subq tissue 20 sq cm/< Add On Codes: 83006 Oxana subq tissue add-on - x6 additional square centimeter debrided, please refer to clinical note.
--- NOTE | 2020-02-28 12:32 | PCM.HBO.PN ---
History of Present Illness Date of Service: 02/28/20 Presenting Chief Complaint: Non healing, chronic decubitus pressure ulcers, stage IV, with osteomyelitis - thigh, buttock, sacrum. GABBI CARBAJAL is a 34 year old currently undergoing hyperbaric oxygen therapy for Stage IV pressure ulcers with osteomyelitis of the thigh, buttocks, and sacrum. Progress: This represents the 79th such session of hyperbaric oxygen therapy. The patient appeared to tolerate HBO therapy well today. Tolerance of hyperbaric oxygen therapy: Hyperbaric oxygen therapy was administered as per the facility's protocol. HBO therapy was administered at 2 octavio for 90 minutes with no air breaks. The patient tolerated hyperbaric oxygen therapy well, without complaints or complications. Upon emergence from the hyperbaric chamber, the patient's vital signs remained stable. The patient was discharged in good condition. Pre- and post- blood glucose measurements are documented elsewhere. Past Medical History Chronic Problems (Last Updated 12/14/19 @ 15:[address] Meena Coyne, ) Sacral decubitus ulcer, stage IV (Chronic) Decubitus ulcer of right buttock, stage 4 (Chronic) Decubitus ulcer of left buttock, stage 4 (Chronic) Chronic osteomyelitis involving pelvic region and thigh (Chronic) Paraplegia (Chronic) Sacral decubitus ulcer, stage IV (Chronic) Decubitus ulcer of right buttock, stage 4 (Chronic) Decubitus ulcer of left buttock, stage 4 (Chronic) Chronic osteomyelitis involving pelvic region and thigh (Chronic) Paraplegia (Chronic) Allergies/Adverse Reactions: Allergies lidocaine Allergy (Verified 09/03/19 13:05) Unknown Home Medications: Ambulatory Orders Medication Instructions Recorded Sitagliptin Phosphate [Januvia] 100 mg PO DAILY 10/11/17 Baclofen 5 mg PO BID 10/12/18 Diazepam [Valium] 5 mg PO BID 10/12/18 Fentanyl 200 ea TD 10/12/18 Ferrous Sulfate 325 mg PO 10/12/18 Insulin Glargine,Hum.rec.anlog 10 unit SQ 10/12/18 [Lantus Solostar] Insulin Lispro [Humalog KwikPen] unit SQ 10/12/18 Magnesium Oxide [Magnesium] 400 mg PO BID 10/12/18 Melatonin 3 mg PO 10/12/18 Metoclopramide HCl [Reglan] 5 mg PO TID 10/12/18 Oxycodone [Oxyfast] 30 mg PO Q4H PRN 10/12/18 Pregabalin [Lyrica] 50 mg PO BID 10/12/18 Sitagliptin Phosphate [Januvia] 100 mg PO 10/12/18 traZODone [Desyrel] 50 mg PO QHS 10/12/18 Meloxicam 7.5 mg PO BID PRN 05/17/19 Methenamine Hippurate [Hiprex] 1 gm PO BID 05/17/19 Maternal Family History: No pertinent history Smoking Status: Former smoker Tobacco Use: Non-smoker Physical Exam Vital Signs Temp Pulse Resp BP 96.7 F L 68 19 H 132/80 H 02/28/20 10:31 02/28/20 10:31 02/28/20 10:31 02/28/20 10:31 General: Alert, Oriented x3, Cooperative, No apparent distress HEENT: Atraumatic, Normocephalic Lungs: Normal air movement Psych/Mental Status: Normal Affect Assessment/Plan Active Problems (Last Updated 12/14/19 @ 15:[address] Meena Coyne, DO) Sacral decubitus ulcer, stage IV (Chronic) Decubitus ulcer of right buttock, stage 4 (Chronic) Decubitus ulcer of left buttock, stage 4 (Chronic) Chronic osteomyelitis involving pelvic region and thigh (Chronic) Paraplegia (Chronic) The patient appears to be tolerating hyperbaric oxygen therapy well, which will be continued as per the patient's medical plan. 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
[2020-02-29 10:15] LABS: Bedside Glucose 222 mg/dL (70-110)
[2020-02-29 11:04] VITALS: BP 125/86; BP 140/74; PULSE 71; PULSE 96; RESP 16; TEMP 36.7; TEMP 36.8
[2020-02-29 12:36] LABS: Bedside Glucose 122 mg/dL (70-110)
[2020-03-03 10:10] LABS: Bedside Glucose 189 mg/dL (70-110)
--- NOTE | 2020-03-03 10:36 | PCM.HBO.PN ---
History of Present Illness Date of Service: 03/03/20 Presenting Chief Complaint: Non healing, chronic decubitus pressure ulcers, stage IV, with osteomyelitis - thigh, buttock, sacrum. GABBI CARBAJAL is a 34 year old currently undergoing hyperbaric oxygen therapy for Stage IV pressure ulcers with osteomyelitis of the thigh, buttocks, and sacrum. Progress: This represents the 81st such session of hyperbaric oxygen therapy. The patient appeared to tolerate HBO therapy well today. Tolerance of hyperbaric oxygen therapy: Hyperbaric oxygen therapy was administered as per the facility's protocol. HBO therapy was administered at 2 octavio for 90 minutes with no air breaks. The patient tolerated hyperbaric oxygen therapy well, without complaints or complications. Upon emergence from the hyperbaric chamber, the patient's vital signs remained stable. The patient was discharged in good condition. Pre- and post- blood glucose measurements are documented elsewhere. Past Medical History Chronic Problems (Last Updated 12/14/19 @ 15:[address] Meena Coyne, ) Sacral decubitus ulcer, stage IV (Chronic) Decubitus ulcer of right buttock, stage 4 (Chronic) Decubitus ulcer of left buttock, stage 4 (Chronic) Chronic osteomyelitis involving pelvic region and thigh (Chronic) Paraplegia (Chronic) Sacral decubitus ulcer, stage IV (Chronic) Decubitus ulcer of right buttock, stage 4 (Chronic) Decubitus ulcer of left buttock, stage 4 (Chronic) Chronic osteomyelitis involving pelvic region and thigh (Chronic) Paraplegia (Chronic) Allergies/Adverse Reactions: Allergies lidocaine Allergy (Verified 09/03/19 13:05) Unknown Home Medications: Ambulatory Orders Medication Instructions Recorded Sitagliptin Phosphate [Januvia] 100 mg PO DAILY 10/11/17 Baclofen 5 mg PO BID 10/12/18 Diazepam [Valium] 5 mg PO BID 10/12/18 Fentanyl 200 ea TD 10/12/18 Ferrous Sulfate 325 mg PO 10/12/18 Insulin Glargine,Hum.rec.anlog 10 unit SQ 10/12/18 [Lantus Solostar] Insulin Lispro [Humalog KwikPen] unit SQ 10/12/18 Magnesium Oxide [Magnesium] 400 mg PO BID 10/12/18 Melatonin 3 mg PO 10/12/18 Metoclopramide HCl [Reglan] 5 mg PO TID 10/12/18 Oxycodone [Oxyfast] 30 mg PO Q4H PRN 10/12/18 Pregabalin [Lyrica] 50 mg PO BID 10/12/18 Sitagliptin Phosphate [Januvia] 100 mg PO 10/12/18 traZODone [Desyrel] 50 mg PO QHS 10/12/18 Meloxicam 7.5 mg PO BID PRN 05/17/19 Methenamine Hippurate [Hiprex] 1 gm PO BID 05/17/19 Maternal Family History: No pertinent history Smoking Status: Former smoker Tobacco Use: Non-smoker Physical Exam Vital Signs Temp Pulse Resp BP 98.3 F 96 16 140/74 H 02/29/20 11:04 02/29/20 11:04 02/29/20 11:04 02/29/20 11:04 General: Alert, Oriented x3, Cooperative, No apparent distress HEENT: Atraumatic, TM's Clear Lungs: Clear to auscultation, Normal air movement Cardiovascular: Regular rate, Regular Rhythm Psych/Mental Status: Normal Affect, Appropriate, Alert and oriented to time, place, person, mood and affect Assessment/Plan Active Problems (Last Updated 12/14/19 @ 15:[address] Meena Coyne, DO) Sacral decubitus ulcer, stage IV (Chronic) Decubitus ulcer of right buttock, stage 4 (Chronic) Decubitus ulcer of left buttock, stage 4 (Chronic) Chronic osteomyelitis involving pelvic region and thigh (Chronic) Paraplegia (Chronic) Treatment Course Number Number of HBO Treatments 91 Ordered Treatment Course Number 1 Treatment # 81 Chamber # 2 Chamber Type Monoplace HBO Diagnosis/Indication Diagnosis/Indication(s) for Standard/Conservative Hyperbaric Therapy Diabetes - Detail Diabetes Diabetes Type II Other - Detail Chronic Refractory Yes Osteomyelitis (specify site in comment) Compromised/Failed Flap/Graft Yes (specify site in comment) 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
[2020-03-03 10:46] VITALS: BP 131/57; BP 191/67; PULSE 72; PULSE 75; RESP 16; RESP 18; TEMP 36.4; TEMP 36.7
[2020-03-03 12:26] LABS: Bedside Glucose 134 mg/dL (70-110)
[2020-03-04 10:21] LABS: Bedside Glucose 178 mg/dL (70-110)
[2020-03-04 10:40] VITALS: BP 139/62; BP 151/89; PULSE 80; PULSE 92; RESP 16; RESP 18; TEMP 36.7; TEMP 36.8
[2020-03-04 12:20] LABS: Bedside Glucose 146 mg/dL (70-110)
--- NOTE | 2020-03-04 13:58 | PCM.HBO.PN ---
History of Present Illness Date of Service: 03/04/20 Presenting Chief Complaint: Non healing, chronic decubitus pressure ulcers, stage IV, with osteomyelitis - thigh, buttock, sacrum. GABBI CARBAJAL is a 34 year old currently undergoing hyperbaric oxygen therapy for Stage IV pressure ulcers with osteomyelitis of the thigh, buttocks, and sacrum. Progress: This represents the 82nd such session of hyperbaric oxygen therapy. The patient appeared to tolerate HBO therapy well today. Tolerance of hyperbaric oxygen therapy: Hyperbaric oxygen therapy was administered as per the facility's protocol. HBO therapy was administered at 2 octavio for 90 minutes with no air breaks. The patient tolerated hyperbaric oxygen therapy well, without complaints or complications. Upon emergence from the hyperbaric chamber, the patient's vital signs remained stable. The patient was discharged in good condition. Pre- and post- blood glucose measurements are documented elsewhere. Past Medical History Chronic Problems (Last Updated 12/14/19 @ 15:[address] Meena Coyne, ) Sacral decubitus ulcer, stage IV (Chronic) Decubitus ulcer of right buttock, stage 4 (Chronic) Decubitus ulcer of left buttock, stage 4 (Chronic) Chronic osteomyelitis involving pelvic region and thigh (Chronic) Paraplegia (Chronic) Sacral decubitus ulcer, stage IV (Chronic) Decubitus ulcer of right buttock, stage 4 (Chronic) Decubitus ulcer of left buttock, stage 4 (Chronic) Chronic osteomyelitis involving pelvic region and thigh (Chronic) Paraplegia (Chronic) Allergies/Adverse Reactions: Allergies lidocaine Allergy (Verified 09/03/19 13:05) Unknown Home Medications: Ambulatory Orders Medication Instructions Recorded Sitagliptin Phosphate [Januvia] 100 mg PO DAILY 10/11/17 Baclofen 5 mg PO BID 10/12/18 Diazepam [Valium] 5 mg PO BID 10/12/18 Fentanyl 200 ea TD 10/12/18 Ferrous Sulfate 325 mg PO 10/12/18 Insulin Glargine,Hum.rec.anlog 10 unit SQ 10/12/18 [Lantus Solostar] Insulin Lispro [Humalog KwikPen] unit SQ 10/12/18 Magnesium Oxide [Magnesium] 400 mg PO BID 10/12/18 Melatonin 3 mg PO 10/12/18 Metoclopramide HCl [Reglan] 5 mg PO TID 10/12/18 Oxycodone [Oxyfast] 30 mg PO Q4H PRN 10/12/18 Pregabalin [Lyrica] 50 mg PO BID 10/12/18 Sitagliptin Phosphate [Januvia] 100 mg PO 10/12/18 traZODone [Desyrel] 50 mg PO QHS 10/12/18 Meloxicam 7.5 mg PO BID PRN 05/17/19 Methenamine Hippurate [Hiprex] 1 gm PO BID 05/17/19 Maternal Family History: No pertinent history Smoking Status: Former smoker Tobacco Use: Non-smoker Physical Exam Vital Signs Temp Pulse Resp BP 98.3 F 92 16 139/62 H 03/04/20 10:40 03/04/20 10:40 03/04/20 10:40 03/04/20 10:40 General: Alert, Oriented x3, Cooperative, No apparent distress, Well developed, Well nourished HEENT: Atraumatic, PERRLA, EOMI, Normocephalic Lungs: Normal air movement Psych/Mental Status: Normal Affect, Appropriate, Alert and oriented to time, place, person, mood and affect Assessment/Plan Active Problems (Last Updated 12/14/19 @ 15:[address] Meena Coyne, DO) Sacral decubitus ulcer, stage IV (Chronic) Decubitus ulcer of right buttock, stage 4 (Chronic) Decubitus ulcer of left buttock, stage 4 (Chronic) Chronic osteomyelitis involving pelvic region and thigh (Chronic) Paraplegia (Chronic) The patient appears to be tolerating hyperbaric oxygen therapy well, which will continue as per the patient's medical plan. 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
[2020-03-05 10:15] LABS: Bedside Glucose 177 mg/dL (70-110)
[2020-03-05 10:55] VITALS: BP 168/91; BP 188/77; PULSE 57; PULSE 62; RESP 16; RESP 18; TEMP 36.2; TEMP 36.3
[2020-03-05 12:26] LABS: Bedside Glucose 97 mg/dL (70-110)
--- NOTE | 2020-03-05 12:29 | PCM.HBO.PN ---
History of Present Illness Date of Service: 03/05/20 Presenting Chief Complaint: Non healing, chronic decubitus pressure ulcers, stage IV, with osteomyelitis - thigh, buttock, sacrum. GABBI CARBAJAL is a 34 year old currently undergoing hyperbaric oxygen therapy for Stage IV pressure ulcers with osteomyelitis of the thigh, buttocks, and sacrum. Progress: This represents the 83rd such session of hyperbaric oxygen therapy. The patient appeared to tolerate HBO therapy well today. Tolerance of hyperbaric oxygen therapy: Hyperbaric oxygen therapy was administered as per the facility's protocol. HBO therapy was administered at 2 octavio for 90 minutes with no air breaks. The patient tolerated hyperbaric oxygen therapy well, without complaints or complications. Upon emergence from the hyperbaric chamber, the patient's vital signs remained stable. The patient was discharged in good condition. Pre- and post- blood glucose measurements are documented elsewhere. Past Medical History Chronic Problems (Last Updated 12/14/19 @ 15:[address] Meena oCyne, ) Sacral decubitus ulcer, stage IV (Chronic) Decubitus ulcer of right buttock, stage 4 (Chronic) Decubitus ulcer of left buttock, stage 4 (Chronic) Chronic osteomyelitis involving pelvic region and thigh (Chronic) Paraplegia (Chronic) Sacral decubitus ulcer, stage IV (Chronic) Decubitus ulcer of right buttock, stage 4 (Chronic) Decubitus ulcer of left buttock, stage 4 (Chronic) Chronic osteomyelitis involving pelvic region and thigh (Chronic) Paraplegia (Chronic) Allergies/Adverse Reactions: Allergies lidocaine Allergy (Verified 09/03/19 13:05) Unknown Home Medications: Ambulatory Orders Medication Instructions Recorded Sitagliptin Phosphate [Januvia] 100 mg PO DAILY 10/11/17 Baclofen 5 mg PO BID 10/12/18 Diazepam [Valium] 5 mg PO BID 10/12/18 Fentanyl 200 ea TD 10/12/18 Ferrous Sulfate 325 mg PO 10/12/18 Insulin Glargine,Hum.rec.anlog 10 unit SQ 10/12/18 [Lantus Solostar] Insulin Lispro [Humalog KwikPen] unit SQ 10/12/18 Magnesium Oxide [Magnesium] 400 mg PO BID 10/12/18 Melatonin 3 mg PO 10/12/18 Metoclopramide HCl [Reglan] 5 mg PO TID 10/12/18 Oxycodone [Oxyfast] 30 mg PO Q4H PRN 10/12/18 Pregabalin [Lyrica] 50 mg PO BID 10/12/18 Sitagliptin Phosphate [Januvia] 100 mg PO 10/12/18 traZODone [Desyrel] 50 mg PO QHS 10/12/18 Meloxicam 7.5 mg PO BID PRN 05/17/19 Methenamine Hippurate [Hiprex] 1 gm PO BID 05/17/19 Maternal Family History: No pertinent history Smoking Status: Former smoker Tobacco Use: Non-smoker Physical Exam Vital Signs Temp Pulse Resp BP 97.4 F L 57 L 16 188/77 H 03/05/20 10:55 03/05/20 10:55 03/05/20 10:55 03/05/20 10:55 Assessment/Plan Active Problems (Last Updated 12/14/19 @ 15:[address] Meena Coyne, DO) Sacral decubitus ulcer, stage IV (Chronic) Decubitus ulcer of right buttock, stage 4 (Chronic) Decubitus ulcer of left buttock, stage 4 (Chronic) Chronic osteomyelitis involving pelvic region and thigh (Chronic) Paraplegia (Chronic) The patient appears to be tolerating hyperbaric oxygen therapy well, which will continue as per the patient's medical plan. 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
[2020-03-10 10:06] LABS: Bedside Glucose 185 mg/dL (70-110)
--- NOTE | 2020-03-10 10:28 | PCM.HBO.PN ---
History of Present Illness Date of Service: 03/10/20 Presenting Chief Complaint: Non healing, chronic decubitus pressure ulcers, stage IV, with osteomyelitis - thigh, buttock, sacrum. GABBI CARBAJAL is a 34 year old currently undergoing hyperbaric oxygen therapy for Stage IV pressure ulcers with osteomyelitis of the thigh, buttocks, and sacrum. Progress: This represents the 84th such session of hyperbaric oxygen therapy. The patient appeared to tolerate HBO therapy well today. Tolerance of hyperbaric oxygen therapy: Hyperbaric oxygen therapy was administered as per the facility's protocol. HBO therapy was administered at 2 octavio for 90 minutes with no air breaks. The patient tolerated hyperbaric oxygen therapy well, without complaints or complications. Upon emergence from the hyperbaric chamber, the patient's vital signs remained stable. The patient was discharged in good condition. Pre- and post- blood glucose measurements are documented elsewhere. Past Medical History Chronic Problems (Last Updated 12/14/19 @ 15:[address] Meena Coyne, ) Sacral decubitus ulcer, stage IV (Chronic) Decubitus ulcer of right buttock, stage 4 (Chronic) Decubitus ulcer of left buttock, stage 4 (Chronic) Chronic osteomyelitis involving pelvic region and thigh (Chronic) Paraplegia (Chronic) Sacral decubitus ulcer, stage IV (Chronic) Decubitus ulcer of right buttock, stage 4 (Chronic) Decubitus ulcer of left buttock, stage 4 (Chronic) Chronic osteomyelitis involving pelvic region and thigh (Chronic) Paraplegia (Chronic) Allergies/Adverse Reactions: Allergies lidocaine Allergy (Verified 09/03/19 13:05) Unknown Home Medications: Ambulatory Orders Medication Instructions Recorded Sitagliptin Phosphate [Januvia] 100 mg PO DAILY 10/11/17 Baclofen 5 mg PO BID 10/12/18 Diazepam [Valium] 5 mg PO BID 10/12/18 Fentanyl 200 ea TD 10/12/18 Ferrous Sulfate 325 mg PO 10/12/18 Insulin Glargine,Hum.rec.anlog 10 unit SQ 10/12/18 [Lantus Solostar] Insulin Lispro [Humalog KwikPen] unit SQ 10/12/18 Magnesium Oxide [Magnesium] 400 mg PO BID 10/12/18 Melatonin 3 mg PO 10/12/18 Metoclopramide HCl [Reglan] 5 mg PO TID 10/12/18 Oxycodone [Oxyfast] 30 mg PO Q4H PRN 10/12/18 Pregabalin [Lyrica] 50 mg PO BID 10/12/18 Sitagliptin Phosphate [Januvia] 100 mg PO 10/12/18 traZODone [Desyrel] 50 mg PO QHS 10/12/18 Meloxicam 7.5 mg PO BID PRN 05/17/19 Methenamine Hippurate [Hiprex] 1 gm PO BID 05/17/19 Maternal Family History: No pertinent history Smoking Status: Former smoker Tobacco Use: Non-smoker Physical Exam Vital Signs Temp Pulse Resp BP 97.4 F L 57 L 16 188/77 H 03/05/20 10:55 03/05/20 10:55 03/05/20 10:55 03/05/20 10:55 General: Alert, Oriented x3, Cooperative, No apparent distress HEENT: Atraumatic, TM's Clear Lungs: Clear to auscultation, Normal air movement Cardiovascular: Regular rate, Regular Rhythm Psych/Mental Status: Normal Affect, Appropriate, Alert and oriented to time, place, person, mood and affect Assessment/Plan Active Problems (Last Updated 12/14/19 @ 15:[address] Meena Coyne, DO) Sacral decubitus ulcer, stage IV (Chronic) Decubitus ulcer of right buttock, stage 4 (Chronic) Decubitus ulcer of left buttock, stage 4 (Chronic) Chronic osteomyelitis involving pelvic region and thigh (Chronic) Paraplegia (Chronic) The patient appears to be tolerating hyperbaric oxygen therapy well, which will continue as per the patient's medical plan. 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
[2020-03-10 10:46] VITALS: BP 151/73; BP 156/72; PULSE 66; PULSE 89; RESP 17; TEMP 36.6
[2020-03-10 12:20] LABS: Bedside Glucose 147 mg/dL (70-110)
== END 2020-03-13 23:59 ==
LOC: WC 10:00
PROVIDERS: Visit Provider Internal Medicine
DX: L89.154 Pressure ulcer of sacral region, stage 4 (principal); L89.314 Pressure ulcer of right buttock, stage 4; L89.324 Pressure ulcer of left buttock, stage 4; M86.68 Other chronic osteomyelitis, other site; G82.20 Paraplegia, unspecified; Z79.899 Other long term (current) drug therapy
CPT/HCPCS: 11042; 11045; 82962; 99183; G0277

== ENCOUNTER 2020-04-10 10:45 | Outpatient (RCR) | payer OTHER, SELFPAY ==
[2020-02-28 09:17] VITALS: BMI 21.8
[2020-03-14 00:22] VITALS: BP 156/72; PULSE 89; RESP 17; TEMP 36.6
[2020-04-03 10:16] VITALS: BP 98/50; PULSE 87; RESP 18; TEMP 37.1; BMI 21.8
--- NOTE | 2020-04-03 13:07 | PN.PCM_ITS ---
(1) Chronic osteomyelitis involving pelvic region and thigh Status: Chronic Code(s): M86.659 - Other chronic osteomyelitis, unspecified thigh (2) Decubitus ulcer of left buttock, stage 4 Status: Chronic Code(s): L89.324 - Pressure ulcer of left buttock, stage 4 (3) Decubitus ulcer of right buttock, stage 4 Status: Chronic Code(s): L89.314 - Pressure ulcer of right buttock, stage 4 (4) Paraplegia Status: Chronic Code(s): G82.20 - Paraplegia, unspecified (5) Sacral decubitus ulcer, stage IV Status: Chronic Code(s): L89.154 - Pressure ulcer of sacral region, stage 4 Type of Wound Date of Service: 04/03/20 Chief Complaint: Non healing, chronic decubitus pressure ulcers, stage IV, with osteomyelitis - thigh, buttock, sacrum. History of Wound: Mr. Joyce is a 33yo well known to the wound center but was last seen here over a month ago. Initial sacral ulcer was said to have started in November and Buttock ulcers were noted subsequently. He has had an extensive hospital stay over the last couple of months following a work related injury. Both during his [facility] and [facility] stays, he had wound care ranging from surgical debridement, wound vac and collagen use. He was scheduled to be restarted on his wound Vac prior to his discharge from the [place]. He reports significant drainage from the wounds. Also of note is a history of osteomyelitis for which he was on a 6 week IV antibiotic. His however states they were informed that he had developed chronic extensive pelvic area osteomyelitis. He feels well otherwise at this time and denies chills, fever,nausea, vomitting or change in bowel habit. 02/22/2019: Above, he was last seen here over a month ago. Had an extensive hospital stay [facility] due to compli cations from prior neck surgery. They state that his ulcers have been stable. Been doing the acetic acid soak for 10 minutes and then calcium alginate/collagen dressings. Denies any concerns at this time. Progress of Wound: Last visit about 3 weeks ago following brief episode of aspiration pneumonia. Doing well at this time. Stable ulcers. No acute concerns. - Physical Exam Vital Signs Temp Pulse Resp BP 98.7 F 87 18 98/50 L 04/03/20 10:16 04/03/20 10:16 04/03/20 10:16 04/03/20 10:16 General: Alert, Oriented x3, Cooperative, No apparent distress HEENT: Atraumatic, Normocephalic Oral: Moist Mucosa Neck: Supple Lungs: Clear to auscultation, Normal air movement Cardiovascular: Regular rate, Regular Rhythm, Normal S1, Normal S2 Extremities: No cyanosis Skin: Ulcer/ Wound Wound Measurements and Assessment WC - Nurse 1 - General Ulcer Measurement Start: 04/03/20 10:02 Freq: Status: Active Protocol: Activity Type Activity Date Activity User E-Sign Co-Sign Detail Recorded Client Recorded Date Recorded By Document 04/03/20 10:16 DL [id number] 04/03/20 10:27 DL 04/03/20 10:16 Wound Center Nurse 1 [Ulcer Assessment] #7 Sacral -Current Size (cm) - Length 5.5 -Current Size (cm) - Width 11.5 -Current Size (cm) - Depth 0.5 -Total Square Cm 63.25 -Photo Taken No -Undermining/Tunneling Starts (O' 10 clock) -Undermining/Tunneling Ends (O'clock) 11 -Maximum Distance (cm) 5.8 -Undermining/Tunneling Starts #2 (O' 1 clock) -Undermining/Tunneling Ends #2 (O' 2 clock) -Maximum Distance #2 (cm) 1.8 -Exudate Amt Medium -Exudate Type Serosanguineous -Wound Margin Thickened & Rolled Under -Granulation Amt Large (67-100%) -Granulation Quality [place],Red -Necrosis Amt Small (1-33%) -Necrotic Tissue Type Adherent Slough -Structure Exposed N/A -Texture (Sheyla-wound Skin Appearance) Scarring -Moisture (Sheyla-wound Skin Appearance No Abnormality ) -Color (Sheyla-wound Skin Appearance) No Abnormality -Temperature (Sheyla-wound Skin No Abnormality Appearance) (Pt Warm) -Tenderness on Palpation (Sheyla-wound No Skin Appearance) -Ulcer Cleansing Wound Cleanser -Foul Odor after Cleansing No #6 R Buttocks -Current Size (cm) - Length 7.5 -Current Size (cm) - Width 3.7 -Current Size (cm) - Depth 2 -Total Square Cm 27.75 -Photo Taken No -Exudate Amt Medium -Exudate Type Serosanguineous -Wound Margin Distinct, Outline Attached -Granulation Amt Large (67-100%) -Granulation Quality [place],Red -Necrosis Amt Small (1-33%) -Necrotic Tissue Type Adherent Slough -Structure Exposed N/A -Texture (Sheyla-wound Skin Appearance) Scarring -Moisture (Sheyla-wound Skin Appearance No Abnormality ) -Color (Sheyla-wound Skin Appearance) No Abnormality -Temperature (Sheyla-wound Skin No Abnormality Appearance) (Pt Warm) -Tenderness on Palpation (Sheyla-wound No Skin Appearance) -Ulcer Cleansing Wound Cleanser -Foul Odor after Cleansing No #5 L Buttocks -Current Size (cm) - Length 5 -Current Size (cm) - Width 7 -Current Size (cm) - Depth 2.3 -Total Square Cm 35 -Photo Taken No -Exudate Amt Medium -Exudate Type Serosanguineous -Wound Margin Distinct, Outline Attached -Granulation Amt Large (67-100%) -Granulation Quality [place],Red -Necrosis Amt Small (1-33%) -Necrotic Tissue Type Adherent Slough -Structure Exposed N/A -Texture (Sheyla-wound Skin Appearance) Scarring -Moisture (Sheyla-wound Skin Appearance No Abnormality ) -Color (Sheyla-wound Skin Appearance) No Abnormality -Temperature (Sheyla-wound Skin No Abnormality Appearance) (Pt Warm) -Tenderness on Palpation (Sheyla-wound No Skin Appearance) -Ulcer Cleansing Wound Cleanser -Foul Odor after Cleansing No WC - Nurse 2 - General Ulcer CM Notes Start: 04/03/20 10:02 Freq: Status: Active Protocol: Activity Type Activity Date Activity User E-Sign Co-Sign Detail Recorded Client Recorded Date Recorded By Document 04/03/20 10:45 MW [id number] 04/03/20 10:54 MW 04/03/20 10:45 Wound Center Nurse 2 [Procedure/Treatment] #7 Sacral -Time 10:45 -Correct Patient Yes -Correct Side, Site, Position Yes -Correct Procedure Yes -Procedure Performed Yes -Type of Procedure Debridement -Clinical Debridement Subcutaneous -Tissue Removed Subcutaneous -Post Debridement (cm) - Length 4.0 -Post Debridement (cm) - Width 12.5 -Post Debridement (cm) - Depth 1.3 -Total Square (Post) (cm) 50.00 -Area of Debridement (cm) - Length 4.0 -Area of Debridement (cm) - Width 12.5 -Total Square (Area) (cm) 50.00 -Tunneling No -Undermining/Tunneling No -Circular Undermining No -Wound/Ulcer Outcome Not Healed -Ulcer Cleansing Rinsed/ Irrigated with Saline -Foul Odor after Cleansing No -Bioengineered Tissue No -Bleeding Controlled with Pressure -Offloading No -Treatment Response Procedure Tolerated Well -Debridement - Subq, 1st 20sq cm Yes -Debridement, SubQ, ea addt'l 20sq cm 5 or part thereof #6 R Buttocks -Time 10:46 -Correct Patient Yes -Correct Side, Site, Position Yes -Correct Procedure Yes -Procedure Performed Yes -Type of Procedure Debridement -Clinical Debridement Subcutaneous -Tissue Removed Subcutaneous -Post Debridement (cm) - Length 7.2 -Post Debridement (cm) - Width 3.0 -Post Debridement (cm) - Depth 2.5 -Total Square (Post) (cm) 21.60 -Area of Debridement (cm) - Length 7.2 -Area of Debridement (cm) - Width 3.0 -Total Square (Area) (cm) 21.60 -Tunneling No -Undermining/Tunneling No -Circular Undermining No -Wound/Ulcer Outcome Not Healed -Ulcer Cleansing Rinsed/ Irrigated with Saline -Foul Odor after Cleansing No -Bioengineered Tissue No -Bleeding Controlled with Pressure -Offloading No -Type of Offloading Surgical Shoe -Debridement - Subq, 1st 20sq cm No #5 L Buttocks -Time 10:46 -Correct Patient Yes -Correct Side, Site, Position Yes -Correct Procedure Yes -Procedure Performed Yes -Type of Procedure Debridement -Clinical Debridement Subcutaneous -Tissue Removed Subcutaneous -Post Debridement (cm) - Length 8.0 -Post Debridement (cm) - Width 5.5 -Post Debridement (cm) - Depth 2.0 -Total Square (Post) (cm) 44.00 -Area of Debridement (cm) - Length 8.0 -Area of Debridement (cm) - Width 5.5 -Total Square (Area) (cm) 44.00 -Tunneling No -Undermining/Tunneling No -Circular Undermining No -Wound/Ulcer Outcome Not Healed -Ulcer Cleansing Rinsed/ Irrigated with Saline -Foul Odor after Cleansing No -Bioengineered Tissue No -Bleeding Controlled with Pressure -Offloading No -Treatment Response Procedure Tolerated Well -Debridement - Subq, 1st 20sq cm No [See Physician Procedure note for Specifics] Pain Scale: 0-10 Numeric [Pain] -Is Patient Pain Free? Yes Musculoskeletal: No Muscle Wasting Neurological: Cranial nerves II-XII grossly intact Psych/Mental Status: Normal Affect Debridement Note Post-Debridement Measurements/Treatment WC - Nurse 2 - General Ulcer CM Notes Start: 04/03/20 10:02 Freq: Status: Active Protocol: Activity Type Activity Date Activity User E-Sign Co-Sign Detail Recorded Client Recorded Date Recorded By Document 04/03/20 10:45 MW [id number] 04/03/20 10:54 MW 04/03/20 10:45 Wound Center Nurse 2 #7 Sacral -Time 10:45 -Correct Patient Yes -Correct Side, Site, Position Yes -Correct Procedure Yes -Procedure Performed Yes -Type of Procedure Debridement -Clinical Debridement Subcutaneous -Tissue Removed Subcutaneous -Post Debridement (cm) - Length 4.0 -Post Debridement (cm) - Width 12.5 -Post Debridement (cm) - Depth 1.3 -Total Square (Post) (cm) 50.00 -Area of Debridement (cm) - Length 4.0 -Area of Debridement (cm) - Width 12.5 -Total Square (Area) (cm) 50.00 -Tunneling No -Undermining/Tunneling No -Circular Undermining No -Wound/Ulcer Outcome Not Healed -Ulcer Cleansing Rinsed/ Irrigated with Saline -Foul Odor after Cleansing No -Bioengineered Tissue No -Bleeding Controlled with Pressure -Offloading No -Treatment Response Procedure Tolerated Well -Debridement - Subq, 1st 20sq cm Yes -Debridement, SubQ, ea addt'l 20sq cm 5 or part thereof #6 R Buttocks -Time 10:46 -Correct Patient Yes -Correct Side, Site, Position Yes -Correct Procedure Yes -Procedure Performed Yes -Type of Procedure Debridement -Clinical Debridement Subcutaneous -Tissue Removed Subcutaneous -Post Debridement (cm) - Length 7.2 -Post Debridement (cm) - Width 3.0 -Post Debridement (cm) - Depth 2.5 -Total Square (Post) (cm) 21.60 -Area of Debridement (cm) - Length 7.2 -Area of Debridement (cm) - Width 3.0 -Total Square (Area) (cm) 21.60 -Tunneling No -Undermining/Tunneling No -Circular Undermining No -Wound/Ulcer Outcome Not Healed -Ulcer Cleansing Rinsed/ Irrigated with Saline -Foul Odor after Cleansing No -Bioengineered Tissue No -Bleeding Controlled with Pressure -Offloading No -Type of Offloading Surgical Shoe -Debridement - Subq, 20sq cm No #5 L Buttocks -Time 10:46 -Correct Patient Yes -Correct Side, Site, Position Yes -Correct Procedure Yes -Procedure Performed Yes -Type of Procedure Debridement -Clinical Debridement Subcutaneous -Tissue Removed Subcutaneous -Post Debridement (cm) - Length 8.0 -Post Debridement (cm) - Width 5.5 -Post Debridement (cm) - Depth 2.0 -Total Square (Post) (cm) 44.00 -Area of Debridement (cm) - Length 8.0 -Area of Debridement (cm) - Width 5.5 -Total Square (Area) (cm) 44.00 -Tunneling No -Undermining/Tunneling No -Circular Undermining No -Wound/Ulcer Outcome Not Healed -Ulcer Cleansing Rinsed/ Irrigated with Saline -Foul Odor after Cleansing No -Bioengineered Tissue No -Bleeding Controlled with Pressure -Offloading No -Treatment Response Procedure Tolerated Well -Debridement - Subq, 20sq cm No Pain Scale: 0-10 Numeric Is Patient Pain Free? Yes Wound debrided: Sacral Wound Grade/Stage: Stage IV Type of Debridement: Excisional debridement Anesthesia Used: 4% Lidocaine Solution Depth: Down to and including healthy tissue, in the subcutaneous layer Percentage of wound debrided: 100 Instrument Used: 5mm curette Tissue Removed: Slough and devitalized tissue Severity: Fat Layer Exposed Amount of bleeding with debridement: Mild Bleeding Controlled with: Pressure Patient tolerated procedure well - Additional Wound Wound debrided: Left Buttock Wound Grade/Stage: Stage IV Anesthesia Used: 4% Lidocaine Solution Depth: Down to and including healthy tissue Percentage of wound debrided: 100 Instrument Used: 5mm curette Tissue Removed: Slough and devitalized tissue Severity: Fat Layer Exposed Amount of bleeding with debridement: Mild Bleeding Controlled with: Pressure Patient tolerated procedure: Patient tolerated procedure well - Additional Wound Wound debrided: Right Buttock Wound Grade/Stage: Stage IV Type of Debridement: Excisional debridement Anesthesia Used: 4% Lidocaine Solution Depth: Down to and including healthy tissue, in the subcutaneous layer Percentage of wound debrided: 100 Instrument Used: 5mm curette Tissue Removed: Slough and devitalized tissue Amount of bleeding with debridement: Mild Bleeding Controlled with: Pressure Patient tolerated procedure: Patient tolerated procedure well Assessment/Plan Active Problems (Last Updated 12/14/19 @ 15:[address] Meena Coyne, DO) Decubitus ulcer of right buttock, stage 4 (Chronic) Decubitus ulcer of left buttock, stage 4 (Chronic) Chronic osteomyelitis involving pelvic region and thigh (Chronic) Sacral decubitus ulcer, stage IV (Chronic) Paraplegia (Chronic) Assessment: Same as above. Plan: Debridement done as documented above, procedure well-tolerated. Continue 10 minute Acetic acid soak to all ulcers then calcium alginate/collagen dressing. Change daily to twice daily depending on drainage. Continue optimal dietary and protein intake. Offloading also recommended. Now open to possible surgical correction/closure. Refer to [facility] plastic surgery.His questions were answered and they were advised to call with any further questions or concerns. Follow up in 1 week. This note was generated with [employer] dictation software. It may contain incorrect words, spelling, and punctuation that were not noted in checking the note before signing. [id number]: [id number] [place] subq tissue 20 sq cm/< Add On Codes: [id number] [place] subq tissue add-on - Additional Sq Cm debrided. Please refer to clinical note.
--- NOTE | 2020-04-03 13:26 | HBO.CON.PC_ITS ---
(1) Chronic osteomyelitis involving pelvic region and thigh Status: Chronic Code(s): M86.659 - Other chronic osteomyelitis, unspecified thigh (2) Decubitus ulcer of left buttock, stage 4 Status: Chronic Code(s): L89.324 - Pressure ulcer of left buttock, stage 4 (3) Decubitus ulcer of right buttock, stage 4 Status: Chronic Code(s): L89.314 - Pressure ulcer of right buttock, stage 4 (4) Paraplegia Status: Chronic Code(s): G82.20 - Paraplegia, unspecified (5) Sacral decubitus ulcer, stage IV Status: Chronic Code(s): L89.154 - Pressure ulcer of sacral region, stage 4 History of Present Illness Date of Service: 04/03/20 Presenting Chief Complaint: Non healing, chronic decubitus pressure ulcers, stage IV, with osteomyelitis - thigh, buttock, sacrum. The patient is a 35 year old M who [facility] the possibility of continuing hyperbaric oxygen therapy for treatment of chronic sacral and bilateral buttock ulcers. Session so far have been uneventful and well tolerated. He is however s/p a short hospital stay on 03/14/20 for aspiration pneumonia. Patient states that he vomited and subsequently aspirated. He was evaluated at a local hospital and subsequently transferred to the [facility] main campus where he eas evaluated at the ER, had imgaing and was released to go home. Since discharge, has felt well. No chills, fever or diff iculty breathing. Past Medical History Chronic Problems (Last Updated 12/14/19 @ 15:[address] Meena Coyne DO) Sacral decubitus ulcer, stage IV (Chronic) Decubitus ulcer of right buttock, stage 4 (Chronic) Decubitus ulcer of left buttock, stage 4 (Chronic) Chronic osteomyelitis involving pelvic region and thigh (Chronic) Paraplegia (Chronic) Sacral decubitus ulcer, stage IV (Chronic) Decubitus ulcer of right buttock, stage 4 (Chronic) Decubitus ulcer of left buttock, stage 4 (Chronic) Chronic osteomyelitis involving pelvic region and thigh (Chronic) Paraplegia (Chronic) Allergies/Adverse Reactions: Allergies lidocaine Allergy (Verified 09/03/19 13:05) Unknown Home Medications: Ambulatory Orders Medication Instructions Recorded Sitagliptin Phosphate [Januvia] 100 mg PO DAILY 10/11/17 Baclofen 5 mg PO BID 10/12/18 Diazepam [Valium] 5 mg PO BID 10/12/18 Fentanyl 200 ea TD 10/12/18 Ferrous Sulfate 325 mg PO 10/12/18 Insulin Glargine,Hum.rec.anlog 10 unit SQ 10/12/18 [Lantus Solostar] Insulin Lispro [Humalog KwikPen] unit SQ 10/12/18 Magnesium Oxide [Magnesium] 400 mg PO BID 10/12/18 Melatonin 3 mg PO 10/12/18 Metoclopramide HCl [Reglan] 5 mg PO TID 10/12/18 Oxycodone [Oxyfast] 30 mg PO Q4H PRN 10/12/18 Pregabalin [Lyrica] 50 mg PO BID 10/12/18 Sitagliptin Phosphate [Januvia] 100 mg PO 10/12/18 traZODone [Desyrel] 50 mg PO QHS 10/12/18 Meloxicam 7.5 mg PO BID PRN 05/17/19 Methenamine Hippurate [Hiprex] 1 gm PO BID 05/17/19 Maternal Family History: No pertinent history Smoking Status: Former smoker Tobacco Use: Non-smoker Review of Systems Constitutional: Denies: Anorexia, Chills, Fever, Night Sweats Eyes: Denies: Blurred vision, Pain, Redness HEENT: Denies: Difficulty Hearing, Difficulty Swallowing Cardiovascular: Denies: Chest Pain, Claudication, Orthopnea Respiratory: Denies: Cough, Hemoptysis, Pleuritic Pain Gastrointestinal: Denies: Abdominal Pain, Hematemesis, Vomiting Psychiatric: Denies: Anxiety - Physical Exam Vital Signs Temp Pulse Resp BP 98.7 F 87 18 98/50 L 04/03/20 10:16 04/03/20 10:16 04/03/20 10:16 04/03/20 10:16 General: Alert, Oriented x3, Cooperative, No apparent distress HEENT: Atraumatic, Normocephalic Oral: Moist Mucosa Neck: Supple Lungs: Clear to auscultation, Normal air movement, No rhonchi, No wheeze Cardiovascular: Regular rate, Regular Rhythm, Normal S1, Normal S2 Abdomen: Non Tender, Obese Extremities: No cyanosis Skin: Ulcer/ Wound Wound Measurements and Assessment WC - Nurse 1 - General Ulcer Measurement Start: 04/03/20 10:02 Freq: Status: Active Protocol: Activity Type Activity Date Activity User E-Sign Co-Sign Detail Recorded Client Recorded Date Recorded By Document 04/03/20 10:16 DL [id number] 04/03/20 10:27 DL 04/03/20 10:16 Wound Center Nurse 1 [Ulcer Assessment] #7 Sacral -Current Size (cm) - Length 5.5 -Current Size (cm) - Width 11.5 -Current Size (cm) - Depth 0.5 -Total Square Cm 63.25 -Photo Taken No -Undermining/Tunneling Starts (O' 10 clock) -Undermining/Tunneling Ends (O'clock) 11 -Maximum Distance (cm) 5.8 -Undermining/Tunneling Starts #2 (O' 1 clock) -Undermining/Tunneling Ends #2 (O' 2 clock) -Maximum Distance #2 (cm) 1.8 -Exudate Amt Medium -Exudate Type Serosanguineous -Wound Margin Thickened & Rolled Under -Granulation Amt Large (67-100%) -Granulation Quality [place],Red -Necrosis Amt Small (1-33%) -Necrotic Tissue Type Adherent Slough -Structure Exposed N/A -Texture (Sheyla-wound Skin Appearance) Scarring -Moisture (Sheyla-wound Skin Appearance No Abnormality ) -Color (Sheyla-wound Skin Appearance) No Abnormality -Temperature (Sheyla-wound Skin No Abnormality Appearance) (Pt Warm) -Tenderness on Palpation (Sheyla-wound No Skin Appearance) -Ulcer Cleansing Wound Cleanser -Foul Odor after Cleansing No #6 R Buttocks -Current Size (cm) - Length 7.5 -Current Size (cm) - Width 3.7 -Current Size (cm) - Depth 2 -Total Square Cm 27.75 -Photo Taken No -Exudate Amt Medium -Exudate Type Serosanguineous -Wound Margin Distinct, Outline Attached -Granulation Amt Large (67-100%) -Granulation Quality [place],Red -Necrosis Amt Small (1-33%) -Necrotic Tissue Type Adherent Slough -Structure Exposed N/A -Texture (Sheyla-wound Skin Appearance) Scarring -Moisture (Sheyla-wound Skin Appearance No Abnormality ) -Color (Sheyla-wound Skin Appearance) No Abnormality -Temperature (Sheyla-wound Skin No Abnormality Appearance) (Pt Warm) -Tenderness on Palpation (Sheyla-wound No Skin Appearance) -Ulcer Cleansing Wound Cleanser -Foul Odor after Cleansing No #5 L Buttocks -Current Size (cm) - Length 5 -Current Size (cm) - Width 7 -Current Size (cm) - Depth 2.3 -Total Square Cm 35 -Photo Taken No -Exudate Amt Medium -Exudate Type Serosanguineous -Wound Margin Distinct, Outline Attached -Granulation Amt Large (67-100%) -Granulation Quality [place],Red -Necrosis Amt Small (1-33%) -Necrotic Tissue Type Adherent Slough -Structure Exposed N/A -Texture (Sheyla-wound Skin Appearance) Scarring -Moisture (Sheyla-wound Skin Appearance No Abnormality ) -Color (Sheyla-wound Skin Appearance) No Abnormality -Temperature (Sheyla-wound Skin No Abnormality Appearance) (Pt Warm) -Tenderness on Palpation (Sheyla-wound No Skin Appearance) -Ulcer Cleansing Wound Cleanser -Foul Odor after Cleansing No WC - Nurse 2 - General Ulcer CM Notes Start: 04/03/20 10:02 Freq: Status: Active Protocol: Activity Type Activity Date Activity User E-Sign Co-Sign Detail Recorded Client Recorded Date Recorded By Document 04/03/20 10:45 MW [id number] 04/03/20 10:54 MW 04/03/20 10:45 Wound Center Nurse 2 [Procedure/Treatment] #7 Sacral -Time 10:45 -Correct Patient Yes -Correct Side, Site, Position Yes -Correct Procedure Yes -Procedure Performed Yes -Type of Procedure Debridement -Clinical Debridement Subcutaneous -Tissue Removed Subcutaneous -Post Debridement (cm) - Length 4.0 -Post Debridement (cm) - Width 12.5 -Post Debridement (cm) - Depth 1.3 -Total Square (Post) (cm) 50.00 -Area of Debridement (cm) - Length 4.0 -Area of Debridement (cm) - Width 12.5 -Total Square (Area) (cm) 50.00 -Tunneling No -Undermining/Tunneling No -Circular Undermining No -Wound/Ulcer Outcome Not Healed -Ulcer Cleansing Rinsed/ Irrigated with Saline -Foul Odor after Cleansing No -Bioengineered Tissue No -Bleeding Controlled with Pressure -Offloading No -Treatment Response Procedure Tolerated Well -Debridement - Subq, 1st 20sq cm Yes -Debridement, SubQ, ea addt'l 20sq cm 5 or part thereof #6 R Buttocks -Time 10:46 -Correct Patient Yes -Correct Side, Site, Position Yes -Correct Procedure Yes -Procedure Performed Yes -Type of Procedure Debridement -Clinical Debridement Subcutaneous -Tissue Removed Subcutaneous -Post Debridement (cm) - Length 7.2 -Post Debridement (cm) - Width 3.0 -Post Debridement (cm) - Depth 2.5 -Total Square (Post) (cm) 21.60 -Area of Debridement (cm) - Length 7.2 -Area of Debridement (cm) - Width 3.0 -Total Square (Area) (cm) 21.60 -Tunneling No -Undermining/Tunneling No -Circular Undermining No -Wound/Ulcer Outcome Not Healed -Ulcer Cleansing Rinsed/ Irrigated with Saline -Foul Odor after Cleansing No -Bioengineered Tissue No -Bleeding Controlled with Pressure -Offloading No -Type of Offloading Surgical Shoe -Debridement - Subq, 1st 20sq cm No #5 L Buttocks -Time 10:46 -Correct Patient Yes -Correct Side, Site, Position Yes -Correct Procedure Yes -Procedure Performed Yes -Type of Procedure Debridement -Clinical Debridement Subcutaneous -Tissue Removed Subcutaneous -Post Debridement (cm) - Length 8.0 -Post Debridement (cm) - Width 5.5 -Post Debridement (cm) - Depth 2.0 -Total Square (Post) (cm) 44.00 -Area of Debridement (cm) - Length 8.0 -Area of Debridement (cm) - Width 5.5 -Total Square (Area) (cm) 44.00 -Tunneling No -Undermining/Tunneling No -Circular Undermining No -Wound/Ulcer Outcome Not Healed -Ulcer Cleansing Rinsed/ Irrigated with Saline -Foul Odor after Cleansing No -Bioengineered Tissue No -Bleeding Controlled with Pressure -Offloading No -Treatment Response Procedure Tolerated Well -Debridement - Subq, 1st 20sq cm No [See Physician Procedure note for Specifics] Pain Scale: 0-10 Numeric [Pain] -Is Patient Pain Free? Yes Musculoskeletal: No Muscle Wasting Neurological: Cranial nerves II-XII grossly intact Psych/Mental Status: Normal Affect Assessment/Plan Active Problems (Last Updated 12/14/19 @ 15:[address] Meena Coyne, DO) Decubitus ulcer of right buttock, stage 4 (Chronic) Decubitus ulcer of left buttock, stage 4 (Chronic) Chronic osteomyelitis involving pelvic region and thigh (Chronic) Sacral decubitus ulcer, stage IV (Chronic) Paraplegia (Chronic) GABBI YORK RAVEN is an appropriate candidate for hyperbaric oxygen therapy. Hyperbaric Oxygen Therapy would be an essential adjunct in the resolution and treatment of this patient's presenting problem. This patient has sufficient physiologic and psychological stamina to undergo the rigors of hyperbaric oxygen therapy. As such, I recommend the following: Hyperbaric Oxygen Treatments at 2.0 KRISTEN in 100% Oxygen for 90 minutes per treatment, for the rest of his assigned david atments I have discussed the possible benefits of hyperbaric oxygen therapy with this patient. I have also presented and described the risks, including: air gas embolism, pneumothorax, central nervous system and pulmonary oxygen toxicity, flash pulmonary edema, hypoglycemia, reversible visual refractive changes, ear and sinus matthew-trauma, and confinement anxiety. The patient has verbalized under standing of these risks, and is still wanting to undergo hyperbaric oxygen therapy. The patient understands the significant time and transportation commitment involved in daily treatments of up to two hours duration and has stated that they are willing to commit to this therapy. Office Visits / Consults: [id number] Est
[2020-04-10 10:55] VITALS: BP 100/67; PULSE 85; RESP 18; TEMP 36.4; BMI 21.8
--- NOTE | 2020-04-10 11:24 | PN.PCM_ITS ---
(1) Chronic osteomyelitis involving pelvic region and thigh Status: Chronic Code(s): M86.659 - Other chronic osteomyelitis, unspecified thigh (2) Decubitus ulcer of left buttock, stage 4 Status: Chronic Code(s): L89.324 - Pressure ulcer of left buttock, stage 4 (3) Decubitus ulcer of right buttock, stage 4 Status: Chronic Code(s): L89.314 - Pressure ulcer of right buttock, stage 4 (4) Paraplegia Status: Chronic Code(s): G82.20 - Paraplegia, unspecified (5) Sacral decubitus ulcer, stage IV Status: Chronic Code(s): L89.154 - Pressure ulcer of sacral region, stage 4 Type of Wound Date of Service: 04/10/20 Chief Complaint: Non healing, chronic decubitus pressure ulcers, stage IV, with osteomyelitis - thigh, buttock, sacrum. History of Wound: Mr. Joyce is a 33yo well known to the wound center but was last seen here over a month ago. Initial sacral ulcer was said to have started in November and Buttock ulcers were noted subsequently. He has had an extensive hospital stay over the last couple of months following a work related injury. Both during his hopsital and half-way stays, he had wound care ranging from surgical debridement, wound vac and collagen use. He was scheduled to be restarted on his wound Vac prior to his discharge from [facility]. He reports significant drainage from the wounds. Also of note is a history of osteomyelitis for which he was on a 6 week IV antibiotic. His however states they were informed that he had developed chronic extensive pelvic area osteomyelitis. He feels well otherwise at this time and denies chills, fever,nausea, vomitting or change in bowel habit. 02/22/2019: Above, he was last seen here over a month ago. Had an extensive hospital stay [facility] due to compli cations from prior neck surgery. They state that his ulcers have been stable. Been doing the acetic acid soak for 10 minutes and then calcium alginate/collagen dressings. Denies any concerns at this time. Progress of Wound: No new concerns at this time. Stable ulcers. - Physical Exam Vital Signs Temp Pulse Resp BP 97.6 F L 85 18 100/67 04/10/20 10:55 04/10/20 10:55 04/10/20 10:55 04/10/20 10:55 General: Alert, Oriented x3, Cooperative, No apparent distress HEENT: Atraumatic, Normocephalic Oral: Moist Mucosa Neck: Supple Lungs: Normal air movement Extremities: No cyanosis Skin: Ulcer/ Wound Wound Measurements and Assessment WC - Nurse 1 - General Ulcer Measurement Start: 04/03/20 10:02 Freq: Status: Active Protocol: Activity Type Activity Date Activity User E-Sign Co-Sign Detail Recorded Client Recorded Date Recorded By Document 04/10/20 10:55 PL [id number] 04/10/20 11:05 PL 04/10/20 10:55 Wound Center Nurse 1 [Ulcer Assessment] #7 Sacral -Combined with other wound No -Current Size (cm) - Length 6.5 -Current Size (cm) - Width 11.5 -Current Size (cm) - Depth 0.5 -Total Square Cm 74.75 -Photo Taken No -Epithelialization None Present -Tunneling No -Undermining/Tunneling No -Circular Undermining No -Exudate Amt Medium -Exudate Type Serosanguineous -Granulation Amt Large (67-100%) -Granulation Quality Haslet -Necrosis Amt Small (1-33%) -Necrotic Tissue Type Adherent Slough -Texture (Sheyla-wound Skin Appearance) No Abnormality -Moisture (Sheyla-wound Skin Appearance No Abnormality ) -Color (Sheyla-wound Skin Appearance) No Abnormality -Temperature (Sheyla-wound Skin No Abnormality Appearance) (Pt Warm) -Ulcer Cleansing Rinsed/ Irrigated with Saline -Foul Odor after Cleansing No #6 R Buttocks -Combined with other wound No -Current Size (cm) - Length 6.0 -Current Size (cm) - Width 5.0 -Current Size (cm) - Depth 2.5 -Total Square Cm 30.00 -Photo Taken No -Epithelialization Medium 34-66% -Tunneling No -Undermining/Tunneling No -Circular Undermining No -Exudate Amt Medium -Exudate Type Serosanguineous -Granulation Amt Large (67-100%) -Granulation Quality Haslet -Slough/Fibrin No -Necrosis Amt Small (1-33%) -Necrotic Tissue Type Adherent Slough -Texture (Sheyla-wound Skin Appearance) No Abnormality -Moisture (Sheyla-wound Skin Appearance No Abnormality ) -Color (Sheyla-wound Skin Appearance) No Abnormality -Temperature (Sheyla-wound Skin No Abnormality Appearance) (Pt Warm) -Ulcer Cleansing Rinsed/ Irrigated with Saline -Foul Odor after Cleansing No #5 L Buttocks -Combined with other wound No -Current Size (cm) - Length 8 -Current Size (cm) - Width 3.5 -Current Size (cm) - Depth 0.8 -Total Square Cm 28.0 -Photo Taken No -Epithelialization Small 1-33% -Tunneling No -Undermining/Tunneling No -Circular Undermining No -Exudate Amt Medium -Exudate Type Serosanguineous -Granulation Amt Large (67-100%) -Granulation Quality Haslet -Necrosis Amt Small (1-33%) -Necrotic Tissue Type Adherent Slough -Texture (Sheyla-wound Skin Appearance) No Abnormality -Moisture (Sheyla-wound Skin Appearance No Abnormality ) -Color (Sheyla-wound Skin Appearance) No Abnormality -Temperature (Sheyla-wound Skin No Abnormality Appearance) (Pt Warm) -Ulcer Cleansing Rinsed/ Irrigated with Saline -Foul Odor after Cleansing No WC - Nurse 2 - General Ulcer CM Notes Start: 04/03/20 10:02 Freq: Status: Active Protocol: Activity Type Activity Date Activity User E-Sign Co-Sign Detail Recorded Client Recorded Date Recorded By Document 04/10/20 11:14 MW [id number] 04/10/20 11:19 MW 04/10/20 11:14 Wound Center Nurse 2 [Procedure/Treatment] #7 Sacral -Time 11:15 -Correct Patient Yes -Correct Side, Site, Position Yes -Correct Procedure Yes -Procedure Performed Yes -Type of Procedure Debridement -Clinical Debridement Subcutaneous -Tissue Removed Subcutaneous -Post Debridement (cm) - Length 4.0 -Post Debridement (cm) - Width 12.5 -Post Debridement (cm) - Depth 1.2 -Total Square (Post) (cm) 50.00 -Area of Debridement (cm) - Length 4.0 -Area of Debridement (cm) - Width 12.5 -Total Square (Area) (cm) 50.00 -Tunneling No -Undermining/Tunneling No -Circular Undermining No -Wound/Ulcer Outcome Not Healed -Ulcer Cleansing Rinsed/ Irrigated with Saline -Foul Odor after Cleansing No -Bioengineered Tissue No -Bleeding Controlled with Pressure -Offloading No -Treatment Response Procedure Tolerated Well -Debridement - Subq, 1st 20sq cm Yes -Debridement, SubQ, ea addt'l 20sq cm 6 or part thereof #6 R Buttocks -Time 11:15 -Correct Patient Yes -Correct Side, Site, Position Yes -Correct Procedure Yes -Procedure Performed Yes -Type of Procedure Debridement -Clinical Debridement Subcutaneous -Tissue Removed Subcutaneous -Post Debridement (cm) - Length 9.0 -Post Debridement (cm) - Width 3.7 -Post Debridement (cm) - Depth 1.3 -Total Square (Post) (cm) 33.30 -Area of Debridement (cm) - Length 9.0 -Area of Debridement (cm) - Width 3.7 -Total Square (Area) (cm) 33.30 -Tunneling No -Undermining/Tunneling No -Circular Undermining No -Wound/Ulcer Outcome Not Healed -Ulcer Cleansing Rinsed/ Irrigated with Saline -Foul Odor after Cleansing No -Bioengineered Tissue No -Bleeding Controlled with Pressure -Offloading No -Debridement - Subq, 1st 20sq cm No #5 L Buttocks -Time 11:17 -Correct Patient Yes -Correct Side, Site, Position Yes -Correct Procedure Yes -Procedure Performed Yes -Type of Procedure Debridement -Clinical Debridement Subcutaneous -Tissue Removed Subcutaneous -Post Debridement (cm) - Length 8.0 -Post Debridement (cm) - Width 4.6 -Post Debridement (cm) - Depth 2.2 -Total Square (Post) (cm) 36.80 -Area of Debridement (cm) - Length 8.0 -Area of Debridement (cm) - Width 4.6 -Total Square (Area) (cm) 36.80 -Tunneling No -Undermining/Tunneling No -Circular Undermining No -Wound/Ulcer Outcome Not Healed -Ulcer Cleansing Rinsed/ Irrigated with Saline -Foul Odor after Cleansing No -Bioengineered Tissue No -Bleeding Controlled with Pressure -Offloading No -Treatment Response Procedure Tolerated Well -Debridement - Subq, 1st 20sq cm No [See Physician Procedure note for Specifics] Pain Scale: 0-10 Numeric [Pain] -Is Patient Pain Free? Yes Musculoskeletal: No Muscle Wasting Neurological: Cranial nerves II-XII grossly intact Psych/Mental Status: Normal Affect Debridement Note Post-Debridement Measurements/Treatment WC - Nurse 2 - General Ulcer CM Notes Start: 04/03/20 10:02 Freq: Status: Active Protocol: Activity Type Activity Date Activity User E-Sign Co-Sign Detail Recorded Client Recorded Date Recorded By Document 04/03/20 10:45 MW [id number] 04/03/20 10:54 MW Document 04/10/20 11:14 MW [id number] 04/10/20 11:19 MW 04/03/20 04/10/20 10:45 11:14 Wound Center Nurse 2 #7 Sacral -Time 10:45 11:15 -Correct Patient Yes Yes -Correct Side, Site, Position Yes Yes -Correct Procedure Yes Yes -Procedure Performed Yes Yes -Type of Procedure Debridement Debridement -Clinical Debridement Subcutaneous Subcutaneous -Tissue Removed Subcutaneous Subcutaneous -Post Debridement (cm) - Length 4.0 4.0 -Post Debridement (cm) - Width 12.5 12.5 -Post Debridement (cm) - Depth 1.3 1.2 -Total Square (Post) (cm) 50.00 50.00 -Area of Debridement (cm) - Length 4.0 4.0 -Area of Debridement (cm) - Width 12.5 12.5 -Total Square (Area) (cm) 50.00 50.00 -Tunneling No No -Undermining/Tunneling No No -Circular Undermining No No -Wound/Ulcer Outcome Not Healed Not Healed -Ulcer Cleansing Rinsed/ Rinsed/ Irrigated with Irrigated with Saline Saline -Foul Odor after Cleansing No No -Bioengineered Tissue No No -Bleeding Controlled with Pressure Pressure -Offloading No No -Treatment Response Procedure Procedure Tolerated Well Tolerated Well -Debridement - Subq, 1st 20sq cm Yes Yes -Debridement, SubQ, ea addt'l 20sq cm 5 6 or part thereof #6 R Buttocks -Time 10:46 11:15 -Correct Patient Yes Yes -Correct Side, Site, Position Yes Yes -Correct Procedure Yes Yes -Procedure Performed Yes Yes -Type of Procedure Debridement Debridement -Clinical Debridement Subcutaneous Subcutaneous -Tissue Removed Subcutaneous Subcutaneous -Post Debridement (cm) - Length 7.2 9.0 -Post Debridement (cm) - Width 3.0 3.7 -Post Debridement (cm) - Depth 2.5 1.3 -Total Square (Post) (cm) 21.60 33.30 -Area of Debridement (cm) - Length 7.2 9.0 -Area of Debridement (cm) - Width 3.0 3.7 -Total Square (Area) (cm) 21.60 33.30 -Tunneling No No -Undermining/Tunneling No No -Circular Undermining No No -Wound/Ulcer Outcome Not Healed Not Healed -Ulcer Cleansing Rinsed/ Rinsed/ Irrigated with Irrigated with Saline Saline -Foul Odor after Cleansing No No -Bioengineered Tissue No No -Bleeding Controlled with Pressure Pressure -Offloading No No -Type of Offloading Surgical Shoe -Debridement - Subq, 1st 20sq cm No No #5 L Buttocks -Time 10:46 11:17 -Correct Patient Yes Yes -Correct Side, Site, Position Yes Yes -Correct Procedure Yes Yes -Procedure Performed Yes Yes -Type of Procedure Debridement Debridement -Clinical Debridement Subcutaneous Subcutaneous -Tissue Removed Subcutaneous Subcutaneous -Post Debridement (cm) - Length 8.0 8.0 -Post Debridement (cm) - Width 5.5 4.6 -Post Debridement (cm) - Depth 2.0 2.2 -Total Square (Post) (cm) 44.00 36.80 -Area of Debridement (cm) - Length 8.0 8.0 -Area of Debridement (cm) - Width 5.5 4.6 -Total Square (Area) (cm) 44.00 36.80 -Tunneling No No -Undermining/Tunneling No No -Circular Undermining No No -Wound/Ulcer Outcome Not Healed Not Healed -Ulcer Cleansing Rinsed/ Rinsed/ Irrigated with Irrigated with Saline Saline -Foul Odor after Cleansing No No -Bioengineered Tissue No No -Bleeding Controlled with Pressure Pressure -Offloading No No -Treatment Response Procedure Procedure Tolerated Well Tolerated Well -Debridement - Subq, 1st 20sq cm No No Pain Scale: 0-10 Numeric Is Patient Pain Free? Yes Yes Wound debrided: Sacral Wound Grade/Stage: Stage IV Type of Debridement: Excisional debridement Anesthesia Used: 4% Lidocaine Solution Depth: Down to and including healthy tissue, in the subcutaneous layer Percentage of wound debrided: 100 Instrument Used: 5mm curette Tissue Removed: Slough and devitalized tissue Severity: Fat Layer Exposed Amount of bleeding with debridement: Mild Bleeding Controlled with: Pressure Patient tolerated procedure well - Additional Wound Wound debrided: Left buttock Wound Grade/Stage: Stage IV Type of Debridement: Excisional debridement Anesthesia Used: 4% Lidocaine Solution Depth: Down to and including healthy tissue, in the subcutaneous layer Percentage of wound debrided: 100 Instrument Used: 5mm curette Tissue Removed: Slough and devitalized tissue Severity: Fat Layer Exposed Amount of bleeding with debridement: Mild Bleeding Controlled with: Pressure Patient tolerated procedure: Patient tolerated procedure well - Additional Wound Wound debrided: Right buttock Wound Grade/Stage: Stage IV Type of Debridement: Excisional debridement Anesthesia Used: 4% Lidocaine Solution Depth: Down to and including healthy tissue, in the subcutaneous layer Percentage of wound debrided: 100 Instrument Used: 5mm curette Tissue Removed: Slough and devitalized tissue Severity: Fat Layer Exposed Amount of bleeding with debridement: Mild Bleeding Controlled with: Pressure Patient tolerated procedure: Patient tolerated procedure well Assessment/Plan Active Problems (Last Updated 12/14/19 @ 15:[address] Meena Coyne DO) Decubitus ulcer of right buttock, stage 4 (Chronic) Decubitus ulcer of left buttock, stage 4 (Chronic) Chronic osteomyelitis involving pelvic region and thigh (Chronic) Sacral decubitus ulcer, stage IV (Chronic) Paraplegia (Chronic) Assessment: Same as above. Plan: Debridement done as documented above, procedure well-tolerated. Continue 10 minute Acetic acid soak to all ulcers then calcium alginate/collagen dressing. Change daily to twice daily depending on drainage. Continue optimal dietary and protein intake. Offloading also recommended. Now open to possible surgical correction/closure. Referred to [facility] plastic surgery. He states that they are yet to contact him. His questions were answered and they were advised to call with any further questions or concerns. Follow up in 1 week. This note was generated with [employer] dictation software. It may contain incorrect words, spelling, and punctuation that were not noted in checking the note before signing. [id number]: [id number] Oxana subq tissue 20 sq cm/< Add On Codes: 62710 Oxana subq tissue add-on - X 6. Additional square centimeter debrided, please refer to clinical note.
== END 2020-04-13 23:59 ==
LOC: WC 10:45
PROVIDERS: Visit Provider Internal Medicine
DX: L89.324 Pressure ulcer of left buttock, stage 4 (principal); L89.314 Pressure ulcer of right buttock, stage 4; L89.154 Pressure ulcer of sacral region, stage 4; M86.69 Other chronic osteomyelitis, multiple sites; G82.20 Paraplegia, unspecified; Z79.4 Long term (current) use of insulin; Z79.899 Other long term (current) drug therapy; Z87.891 Personal history of nicotine dependence
CPT/HCPCS: 11042; 11045

== ENCOUNTER 2020-05-08 10:30 | Outpatient (RCR) | payer OTHER, SELFPAY ==
[2020-04-14 00:22] VITALS: BP 100/67; PULSE 85; RESP 18; TEMP 36.4
[2020-04-16 11:56] VITALS: BP 131/57; BP 146/76; PULSE 68; PULSE 86; RESP 16; RESP 86; TEMP -8.8; TEMP 16; TEMP 36.7
--- NOTE | 2020-04-16 15:57 | PCM.HBO.PN ---
History of Present Illness Date of Service: 04/16/20 Presenting Chief Complaint: Non healing, chronic decubitus pressure ulcers, stage IV, with osteomyelitis - thigh, buttock, sacrum. GABBI CARBAJAL is a 35 year old currently undergoing hyperbaric oxygen therapy for Stage IV pressure ulcers with osteomyelitis of the thigh, buttocks, and sacrum. Progress: This represents the 85th such session of Planed 111 sessions of hyperbaric oxygen therapy. The patient appeared to tolerate HBO therapy well today. Tolerance of hyperbaric oxygen therapy: Hyperbaric oxygen therapy was administered as per the facility's protocol. HBO therapy was administered at 2 octavio for 90 minutes with no air breaks. The patient tolerated hyperbaric oxygen therapy well, without complaints or complications. Upon emergence from the hyperbaric chamber, the patient's vital signs remained stable. The patient was discharged in good condition. Pre- and post- blood glucose measurements are documented elsewhere. Past Medical History Chronic Problems (Last Updated 12/14/19 @ 15:[address] Meena Coyne, DO) Sacral decubitus ulcer, stage IV (Chronic) Decubitus ulcer of right buttock, stage 4 (Chronic) Decubitus ulcer of left buttock, stage 4 (Chronic) Chronic osteomyelitis involving pelvic region and thigh (Chronic) Paraplegia (Chronic) Sacral decubitus ulcer, stage IV (Chronic) Decubitus ulcer of right buttock, stage 4 (Chronic) Decubitus ulcer of left buttock, stage 4 (Chronic) Chronic osteomyelitis involving pelvic region and thigh (Chronic) Paraplegia (Chronic) Allergies/Adverse Reactions: Allergies lidocaine Allergy (Verified 09/03/19 13:05) Unknown Home Medications: Ambulatory Orders Medication Instructions Recorded Sitagliptin Phosphate [Januvia] 100 mg PO DAILY 10/11/17 Baclofen 5 mg PO BID 10/12/18 Diazepam [Valium] 5 mg PO BID 10/12/18 Fentanyl 200 ea TD 10/12/18 Ferrous Sulfate 325 mg PO 10/12/18 Insulin Glargine,Hum.rec.anlog 10 unit SQ 10/12/18 [Lantus Solostar] Insulin Lispro [Humalog KwikPen] unit SQ 10/12/18 Magnesium Oxide [Magnesium] 400 mg PO BID 10/12/18 Melatonin 3 mg PO 10/12/18 Metoclopramide HCl [Reglan] 5 mg PO TID 10/12/18 Oxycodone [Oxyfast] 30 mg PO Q4H PRN 10/12/18 Pregabalin [Lyrica] 50 mg PO BID 10/12/18 Sitagliptin Phosphate [Januvia] 100 mg PO 10/12/18 traZODone [Desyrel] 50 mg PO QHS 10/12/18 Meloxicam 7.5 mg PO BID PRN 05/17/19 Methenamine Hippurate [Hiprex] 1 gm PO BID 05/17/19 Maternal Family History: No pertinent history Smoking Status: Former smoker Tobacco Use: Non-smoker Physical Exam Vital Signs Temp Pulse Resp BP 16 F L 86 86 H 131/57 H 04/16/20 11:56 04/16/20 11:56 04/16/20 11:56 04/16/20 11:56 General: Alert, Oriented x3, Cooperative, No apparent distress HEENT: Atraumatic, TM's Clear Lungs: Clear to auscultation, Normal air movement Cardiovascular: Regular rate, Regular Rhythm Psych/Mental Status: Normal Affect, Appropriate, Alert and oriented to time, place, person, mood and affect Assessment/Plan The patient appears to be tolerating hyperbaric oxygen therapy well, which will continue as per the patient's medical plan. 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
[2020-04-17 07:25] LABS: Bedside Glucose 122 mg/dL (70-110)
[2020-04-17 07:25] LABS: Bedside Glucose 212 mg/dL (70-110)
[2020-04-17 11:16] VITALS: BP 106/69; PULSE 109; RESP 18; TEMP 37; BMI 21.8
[2020-04-17 12:26] LABS: Bedside Glucose 89 mg/dL (70-110)
[2020-04-17 12:41] LABS: Bedside Glucose 94 mg/dL (70-110)
--- NOTE | 2020-04-17 14:09 | PN.PCM_ITS ---
(1) Chronic osteomyelitis involving pelvic region and thigh Status: Chronic Code(s): M86.659 - Other chronic osteomyelitis, unspecified thigh (2) Decubitus ulcer of left buttock, stage 4 Status: Chronic Code(s): L89.324 - Pressure ulcer of left buttock, stage 4 (3) Decubitus ulcer of right buttock, stage 4 Status: Chronic Code(s): L89.314 - Pressure ulcer of right buttock, stage 4 (4) Paraplegia Status: Chronic Code(s): G82.20 - Paraplegia, unspecified (5) Sacral decubitus ulcer, stage IV Status: Chronic Code(s): L89.154 - Pressure ulcer of sacral region, stage 4 Type of Wound Date of Service: 04/17/20 Chief Complaint: Non healing, chronic decubitus pressure ulcers, stage IV, with osteomyelitis - thigh, buttock, sacrum. History of Wound: Mr. Joyce is a 33yo well known to the wound center but was last seen here over a month ago. Initial sacral ulcer was said to have started in November and Buttock ulcers were noted subsequently. He has had an extensive hospital stay over the last couple of months following a work related injury. Both during his hopsital and skilled nursing stays, he had wound care ranging from surgical debridement, wound vac and collagen use. He was scheduled to be restarted on his wound Vac prior to his discharge from [place]. He reports significant drainage from the wounds. Also of note is a history of osteomyelitis for which he was on a 6 week IV antibiotic. His however states they were informed that he had developed chronic extensive pelvic area osteomyelitis. He feels well otherwise at this time and denies chills, fever,nausea, vomitting or change in bowel habit. 02/22/2019: Above, he was last seen here over a month ago. Had an extensive hospital stay [facility] due to compli cations from prior neck surgery. They state that his ulcers have been stable. Been doing the acetic acid soak for 10 minutes and then calcium alginate/collagen dressings. Denies any concerns at this time. Progress of Wound: No new concerns. Stable Ulcers. yet to get an appointment at [facility] for possible graft closure. - Physical Exam Vital Signs Temp Pulse Resp BP 98.6 F 109 H 18 106/69 04/17/20 11:16 04/17/20 11:16 04/17/20 11:16 04/17/20 11:16 General: Alert, Oriented x3, Cooperative, No apparent distress HEENT: Atraumatic, Normocephalic Oral: Moist Mucosa Lungs: Normal air movement Extremities: No cyanosis Skin: Ulcer/ Wound Wound Measurements and Assessment WC - Nurse 1 - General Ulcer Measurement Start: 04/16/20 11:56 Freq: Status: Active Protocol: Activity Type Activity Date Activity User E-Sign Co-Sign Detail Recorded Client Recorded Date Recorded By Document 04/17/20 11:16 PL [id number] 04/17/20 11:29 PL 04/17/20 11:16 Wound Center Nurse 1 [Ulcer Assessment] #7 Sacral -Combined with other wound No -Current Size (cm) - Length 4.5 -Current Size (cm) - Width 12 -Current Size (cm) - Depth 0.4 -Total Square Cm 54.0 -Epithelialization Small 1-33% -Undermining/Tunneling Yes -Undermining/Tunneling Starts (O' 12 clock) -Undermining/Tunneling Ends (O'clock) 1 -Maximum Distance (cm) 1.0 -Undermining/Tunneling Starts #2 (O' 10 clock) -Undermining/Tunneling Ends #2 (O' 11 clock) -Maximum Distance #2 (cm) 5.8 -Circular Undermining No -Exudate Amt Large -Exudate Type Serosanguineous -Wound Margin Thickened & Rolled Under -Granulation Amt Medium (34-66%) -Granulation Quality Berwind,Red -Slough/Fibrin Yes -Necrosis Amt Medium (34-66%) -Necrotic Tissue Type Adherent Slough -Texture (Sheyla-wound Skin Appearance) No Abnormality -Moisture (Sheyla-wound Skin Appearance No Abnormality ) -Color (Sheyla-wound Skin Appearance) No Abnormality -Temperature (Sheyla-wound Skin No Abnormality Appearance) (Pt Warm) -Ulcer Cleansing Rinsed/ Irrigated with Saline -Foul Odor after Cleansing No #6 R Buttocks -Combined with other wound No -Current Size (cm) - Length 8 -Current Size (cm) - Width 4 -Current Size (cm) - Depth 0.4 -Total Square Cm 32 -Epithelialization None Present -Tunneling No -Undermining/Tunneling No -Circular Undermining No -Exudate Amt Large -Exudate Type Serosanguineous -Granulation Amt Medium (34-66%) -Granulation Quality Hyper- granulation -Necrosis Amt Medium (34-66%) -Necrotic Tissue Type Adherent Slough -Texture (Sheyla-wound Skin Appearance) No Abnormality -Moisture (Sheyla-wound Skin Appearance No Abnormality ) -Color (Sheyla-wound Skin Appearance) No Abnormality -Temperature (Sheyla-wound Skin No Abnormality Appearance) (Pt Warm) -Ulcer Cleansing Rinsed/ Irrigated with Saline -Foul Odor after Cleansing No #5 L Buttocks -Combined with other wound No -Current Size (cm) - Length 7.5 -Current Size (cm) - Width 5 -Current Size (cm) - Depth 2 -Total Square Cm 37.5 -Epithelialization None Present -Tunneling No -Undermining/Tunneling No -Circular Undermining No -Exudate Amt Large -Exudate Type Serosanguineous -Granulation Amt Medium (34-66%) -Granulation Quality Berwind,Red -Slough/Fibrin Yes -Necrosis Amt Medium (34-66%) -Necrotic Tissue Type Adherent Slough -Texture (Sheyla-wound Skin Appearance) No Abnormality -Moisture (Sheyla-wound Skin Appearance No Abnormality ) -Color (Sheyla-wound Skin Appearance) No Abnormality -Temperature (Sheyla-wound Skin No Abnormality Appearance) (Pt Warm) -Ulcer Cleansing Rinsed/ Irrigated with Saline -Foul Odor after Cleansing No WC - Nurse 2 - General Ulcer CM Notes Start: 04/16/20 11:56 Freq: Status: Active Protocol: Activity Type Activity Date Activity User E-Sign Co-Sign Detail Recorded Client Recorded Date Recorded By Document 04/17/20 11:38 MW [email or web address] 04/17/20 11:44 MW 04/17/20 11:38 Wound Center Nurse 2 [Procedure/Treatment] #7 Sacral -Time 11:38 -Correct Patient Yes -Correct Side, Site, Position Yes -Correct Procedure Yes -Procedure Performed Yes -Type of Procedure Debridement -Clinical Debridement Subcutaneous -Tissue Removed Subcutaneous -Post Debridement (cm) - Length 4.0 -Post Debridement (cm) - Width 13.0 -Post Debridement (cm) - Depth 1.5 -Total Square (Post) (cm) 52.00 -Area of Debridement (cm) - Length 4.0 -Area of Debridement (cm) - Width 13.0 -Total Square (Area) (cm) 52.00 -Tunneling No -Undermining/Tunneling No -Circular Undermining No -Wound/Ulcer Outcome Not Healed -Ulcer Cleansing Rinsed/ Irrigated with Saline -Foul Odor after Cleansing No -Bioengineered Tissue No -Bleeding Controlled with Pressure -Offloading No -Treatment Response Procedure Tolerated Well -Debridement - Subq, 1st 20sq cm Yes -Debridement, SubQ, ea addt'l 20sq cm 6 or part thereof #6 R Buttocks -Time 11:39 -Correct Patient Yes -Correct Side, Site, Position Yes -Correct Procedure Yes -Procedure Performed Yes -Type of Procedure Debridement -Clinical Debridement Subcutaneous -Tissue Removed Subcutaneous -Post Debridement (cm) - Length 9.0 -Post Debridement (cm) - Width 4.0 -Post Debridement (cm) - Depth 1.5 -Total Square (Post) (cm) 36.00 -Area of Debridement (cm) - Length 9.0 -Area of Debridement (cm) - Width 4.0 -Total Square (Area) (cm) 36.00 -Tunneling No -Undermining/Tunneling No -Circular Undermining No -Wound/Ulcer Outcome Not Healed -Ulcer Cleansing Rinsed/ Irrigated with Saline -Foul Odor after Cleansing No -Bioengineered Tissue No -Bleeding Controlled with Pressure -Offloading No -Treatment Response Procedure Tolerated Well -Debridement - Subq, 1st 20sq cm No #5 L Buttocks -Time 11:39 -Correct Patient Yes -Correct Side, Site, Position Yes -Correct Procedure Yes -Procedure Performed Yes -Type of Procedure Debridement -Clinical Debridement Subcutaneous -Tissue Removed Subcutaneous -Post Debridement (cm) - Length 8.0 -Post Debridement (cm) - Width 5.0 -Post Debridement (cm) - Depth 2.3 -Total Square (Post) (cm) 40.00 -Area of Debridement (cm) - Length 8.0 -Area of Debridement (cm) - Width 5.0 -Total Square (Area) (cm) 40.00 -Tunneling No -Undermining/Tunneling No -Circular Undermining No -Wound/Ulcer Outcome Not Healed -Ulcer Cleansing Rinsed/ Irrigated with Saline -Foul Odor after Cleansing No -Bioengineered Tissue No -Bleeding Controlled with Pressure -Offloading No -Debridement - Subq, 1st 20sq cm No [See Physician Procedure note for Specifics] Pain Scale: 0-10 Numeric [Pain] -Is Patient Pain Free? Yes Musculoskeletal: No Muscle Wasting Neurological: Cranial nerves II-XII grossly intact Psych/Mental Status: Normal Affect Debridement Note Post-Debridement Measurements/Treatment WC - Nurse 2 - General Ulcer CM Notes Start: 04/16/20 11:56 Freq: Status: Active Protocol: Activity Type Activity Date Activity User E-Sign Co-Sign Detail Recorded Client Recorded Date Recorded By Document 04/17/20 11:38 MW [email or web address] 04/17/20 11:44 MW 04/17/20 11:38 Wound Center Nurse 2 #7 Sacral -Time 11:38 -Correct Patient Yes -Correct Side, Site, Position Yes -Correct Procedure Yes -Procedure Performed Yes -Type of Procedure Debridement -Clinical Debridement Subcutaneous -Tissue Removed Subcutaneous -Post Debridement (cm) - Length 4.0 -Post Debridement (cm) - Width 13.0 -Post Debridement (cm) - Depth 1.5 -Total Square (Post) (cm) 52.00 -Area of Debridement (cm) - Length 4.0 -Area of Debridement (cm) - Width 13.0 -Total Square (Area) (cm) 52.00 -Tunneling No -Undermining/Tunneling No -Circular Undermining No -Wound/Ulcer Outcome Not Healed -Ulcer Cleansing Rinsed/ Irrigated with Saline -Foul Odor after Cleansing No -Bioengineered Tissue No -Bleeding Controlled with Pressure -Offloading No -Treatment Response Procedure Tolerated Well -Debridement - Subq, 1st 20sq cm Yes -Debridement, SubQ, ea addt'l 20sq cm 6 or part thereof #6 R Buttocks -Time 11:39 -Correct Patient Yes -Correct Side, Site, Position Yes -Correct Procedure Yes -Procedure Performed Yes -Type of Procedure Debridement -Clinical Debridement Subcutaneous -Tissue Removed Subcutaneous -Post Debridement (cm) - Length 9.0 -Post Debridement (cm) - Width 4.0 -Post Debridement (cm) - Depth 1.5 -Total Square (Post) (cm) 36.00 -Area of Debridement (cm) - Length 9.0 -Area of Debridement (cm) - Width 4.0 -Total Square (Area) (cm) 36.00 -Tunneling No -Undermining/Tunneling No -Circular Undermining No -Wound/Ulcer Outcome Not Healed -Ulcer Cleansing Rinsed/ Irrigated with Saline -Foul Odor after Cleansing No -Bioengineered Tissue No -Bleeding Controlled with Pressure -Offloading No -Treatment Response Procedure Tolerated Well -Debridement - Subq, 1st 20sq cm No #5 L Buttocks -Time 11:39 -Correct Patient Yes -Correct Side, Site, Position Yes -Correct Procedure Yes -Procedure Performed Yes -Type of Procedure Debridement -Clinical Debridement Subcutaneous -Tissue Removed Subcutaneous -Post Debridement (cm) - Length 8.0 -Post Debridement (cm) - Width 5.0 -Post Debridement (cm) - Depth 2.3 -Total Square (Post) (cm) 40.00 -Area of Debridement (cm) - Length 8.0 -Area of Debridement (cm) - Width 5.0 -Total Square (Area) (cm) 40.00 -Tunneling No -Undermining/Tunneling No -Circular Undermining No -Wound/Ulcer Outcome Not Healed -Ulcer Cleansing Rinsed/ Irrigated with Saline -Foul Odor after Cleansing No -Bioengineered Tissue No -Bleeding Controlled with Pressure -Offloading No -Debridement - Subq, 1st 20sq cm No Pain Scale: 0-10 Numeric Is Patient Pain Free? Yes Wound debrided: Sacral Wound Grade/Stage: Stage IV Type of Debridement: Excisional debridement Anesthesia Used: 4% Lidocaine Solution Depth: Down to and including healthy tissue, in the subcutaneous layer Percentage of wound debrided: 100 Instrument Used: 7mm curette Tissue Removed: Slough and devitalized tissue Severity: Fat Layer Exposed Amount of bleeding with debridement: Mild Bleeding Controlled with: Pressure Patient tolerated procedure well - Additional Wound Wound debrided: Right Buttock Wound Grade/Stage: Stage IV Type of Debridement: Excisional debridement Anesthesia Used: 4% Lidocaine Solution Depth: Down to and including healthy tissue, in the subcutaneous layer Percentage of wound debrided: 100 Instrument Used: 7mm curette Tissue Removed: Slough and devitalized tissue Severity: Fat Layer Exposed Amount of bleeding with debridement: Mild Bleeding Controlled with: Pressure Patient tolerated procedure: Patient tolerated procedure well - Additional Wound Wound debrided: Left Buttock Wound Grade/Stage: Stage IV Type of Debridement: Excisional debridement Anesthesia Used: 4% Lidocaine Solution Depth: Down to and including healthy tissue, to muscle Percentage of wound debrided: 100 Instrument Used: 7mm curette Tissue Removed: Slough and devitalized tissue Severity: Fat Layer Exposed Amount of bleeding with debridement: Mild Bleeding Controlled with: Pressure Patient tolerated procedure: Patient tolerated procedure well Assessment/Plan Assessment: Chronic Stage IV sacral, left and right decubitus ulcers. Paraplegia. Chronic Osteomyelitis of pelvic region. Plan: Debridement done as documented above, procedure well-tolerated. Continue 10 minute Acetic acid soak to all ulcers then calcium alginate/collagen dr essing. Change daily to twice daily depending on drainage. Continue optimal dietary and protein intake. Offloading also recommended. Now open to possible surgical closure/ graft. Referred to [facility] plastic surgery. He states that they are yet to contact him. He also would like to take a break from HBO after 90 treatments. Okay to take a break pending palstic surgery review. His questions were answered and they were advised to call with any further questions or concerns. Follow up in 1 week. This note was generated with [employer] dictation software. It may contain incorrect words, spelling, and punctuation that were not noted in checking the note before signing. [id number]: [id number] Oxana subq tissue 20 sq cm/< Add On Codes: 96546 Oxana subq tissue add-on - x6. Additional Sq Cm debrided. Please refer to clinical note.
[2020-04-18 11:01] LABS: Bedside Glucose 152 mg/dL (70-110)
[2020-04-18 11:37] VITALS: BP 104/66; BP 130/86; PULSE 61; PULSE 81; RESP 16; RESP 18; TEMP 36.3; TEMP 36.5
--- NOTE | 2020-04-18 12:25 | PCM.HBO.PN ---
History of Present Illness Date of Service: 04/18/20 Presenting Chief Complaint: Non healing, chronic decubitus pressure ulcers, stage IV, with osteomyelitis - thigh, buttock, sacrum. GABBI CARBAJAL is a 35 year old currently undergoing hyperbaric oxygen therapy for Stage IV pressure ulcers with osteomyelitis of the thigh, buttocks, and sacrum. Progress: This represents the 86th such session of Planed 111 sessions of hyperbaric oxygen therapy. The patient appeared to tolerate HBO therapy well today. Tolerance of hyperbaric oxygen therapy: Hyperbaric oxygen therapy was administered as per the facility's protocol. HBO therapy was administered at 2 octavio for 90 minutes with no air breaks. The patient tolerated hyperbaric oxygen therapy well, without complaints or complications. Upon emergence from the hyperbaric chamber, the patient's vital signs remained stable. The patient was discharged in good condition. Pre- and post- blood glucose measurements are documented elsewhere. Past Medical History Chronic Problems (Last Updated 12/14/19 @ 15:[address] Meena Coyne, DO) Sacral decubitus ulcer, stage IV (Chronic) Decubitus ulcer of right buttock, stage 4 (Chronic) Decubitus ulcer of left buttock, stage 4 (Chronic) Chronic osteomyelitis involving pelvic region and thigh (Chronic) Paraplegia (Chronic) Sacral decubitus ulcer, stage IV (Chronic) Decubitus ulcer of right buttock, stage 4 (Chronic) Decubitus ulcer of left buttock, stage 4 (Chronic) Chronic osteomyelitis involving pelvic region and thigh (Chronic) Paraplegia (Chronic) Allergies/Adverse Reactions: Allergies lidocaine Allergy (Verified 09/03/19 13:05) Unknown Home Medications: Ambulatory Orders Medication Instructions Recorded Sitagliptin Phosphate [Januvia] 100 mg PO DAILY 10/11/17 Baclofen 5 mg PO BID 10/12/18 Diazepam [Valium] 5 mg PO BID 10/12/18 Fentanyl 200 ea TD 10/12/18 Ferrous Sulfate 325 mg PO 10/12/18 Insulin Glargine,Hum.rec.anlog 10 unit SQ 10/12/18 [Lantus Solostar] Insulin Lispro [Humalog KwikPen] unit SQ 10/12/18 Magnesium Oxide [Magnesium] 400 mg PO BID 10/12/18 Melatonin 3 mg PO 10/12/18 Metoclopramide HCl [Reglan] 5 mg PO TID 10/12/18 Oxycodone [Oxyfast] 30 mg PO Q4H PRN 10/12/18 Pregabalin [Lyrica] 50 mg PO BID 10/12/18 Sitagliptin Phosphate [Januvia] 100 mg PO 10/12/18 traZODone [Desyrel] 50 mg PO QHS 10/12/18 Meloxicam 7.5 mg PO BID PRN 05/17/19 Methenamine Hippurate [Hiprex] 1 gm PO BID 05/17/19 Maternal Family History: No pertinent history Smoking Status: Former smoker Tobacco Use: Non-smoker Physical Exam Vital Signs Temp Pulse Resp BP 97.7 F L 81 16 104/66 04/18/20 11:37 04/18/20 11:37 04/18/20 11:37 04/18/20 11:37 General: Alert, Oriented x3, Cooperative, No apparent distress HEENT: Atraumatic, TM's Clear Lungs: Clear to auscultation, Normal air movement Cardiovascular: Regular rate, Regular Rhythm Psych/Mental Status: Normal Affect, Appropriate, Alert and oriented to time, place, person, mood and affect Assessment/Plan Active Problems (Last Updated 12/14/19 @ 15:[address] Meena Coyne, DO) Chronic osteomyelitis involving pelvic region and thigh (Chronic) Sacral decubitus ulcer, stage IV (Chronic) Decubitus ulcer of right buttock, stage 4 (Chronic) Decubitus ulcer of left buttock, stage 4 (Chronic) Paraplegia (Chronic) The patient appears to be tolerating hyperbaric oxygen therapy well, which will continue as per the patient's medical plan. 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
[2020-04-18 13:25] LABS: Bedside Glucose 81 mg/dL (70-110)
[2020-04-21 11:30] LABS: Bedside Glucose 188 mg/dL (70-110)
--- NOTE | 2020-04-21 12:10 | PCM.HBO.PN ---
History of Present Illness Date of Service: 04/21/20 Presenting Chief Complaint: Non healing, chronic decubitus pressure ulcers, stage IV, with osteomyelitis - thigh, buttock, sacrum. GABBI CARBAJAL is a 35 year old currently undergoing hyperbaric oxygen therapy for Stage IV pressure ulcers with osteomyelitis of the thigh, buttocks, and sacrum. Progress: This represents the 87th such session of Planed 90 sessions of hyperbaric oxygen therapy. The patient appeared to tolerate HBO therapy well today. Tolerance of hyperbaric oxygen therapy: Hyperbaric oxygen therapy was administered as per the facility's protocol. HBO therapy was administered at 2 octavio for 90 minutes with no air breaks. The patient tolerated hyperbaric oxygen therapy well, without complaints or complications. Upon emergence from the hyperbaric chamber, the patient's vital signs remained stable. The patient was discharged in good condition. Pre- and post- blood glucose measurements are documented elsewhere. Past Medical History Chronic Problems (Last Updated 12/14/19 @ 15:[address] Meena Coyne, DO) Sacral decubitus ulcer, stage IV (Chronic) Decubitus ulcer of right buttock, stage 4 (Chronic) Decubitus ulcer of left buttock, stage 4 (Chronic) Chronic osteomyelitis involving pelvic region and thigh (Chronic) Paraplegia (Chronic) Sacral decubitus ulcer, stage IV (Chronic) Decubitus ulcer of right buttock, stage 4 (Chronic) Decubitus ulcer of left buttock, stage 4 (Chronic) Chronic osteomyelitis involving pelvic region and thigh (Chronic) Paraplegia (Chronic) Allergies/Adverse Reactions: Allergies lidocaine Allergy (Verified 09/03/19 13:05) Unknown Home Medications: Ambulatory Orders Medication Instructions Recorded Sitagliptin Phosphate [Januvia] 100 mg PO DAILY 10/11/17 Baclofen 5 mg PO BID 10/12/18 Diazepam [Valium] 5 mg PO BID 10/12/18 Fentanyl 200 ea TD 10/12/18 Ferrous Sulfate 325 mg PO 10/12/18 Insulin Glargine,Hum.rec.anlog 10 unit SQ 10/12/18 [Lantus Solostar] Insulin Lispro [Humalog KwikPen] unit SQ 10/12/18 Magnesium Oxide [Magnesium] 400 mg PO BID 10/12/18 Melatonin 3 mg PO 10/12/18 Metoclopramide HCl [Reglan] 5 mg PO TID 10/12/18 Oxycodone [Oxyfast] 30 mg PO Q4H PRN 10/12/18 Pregabalin [Lyrica] 50 mg PO BID 10/12/18 Sitagliptin Phosphate [Januvia] 100 mg PO 10/12/18 traZODone [Desyrel] 50 mg PO QHS 10/12/18 Meloxicam 7.5 mg PO BID PRN 05/17/19 Methenamine Hippurate [Hiprex] 1 gm PO BID 05/17/19 Maternal Family History: No pertinent history Smoking Status: Former smoker Tobacco Use: Non-smoker Physical Exam Vital Signs Temp Pulse Resp BP 97.7 F L 81 16 104/66 04/18/20 11:37 04/18/20 11:37 04/18/20 11:37 04/18/20 11:37 General: Alert, Oriented x3, Cooperative, No apparent distress HEENT: Atraumatic, TM's Clear Lungs: Clear to auscultation, Normal air movement Cardiovascular: Regular rate, Regular Rhythm Psych/Mental Status: Normal Affect, Appropriate, Alert and oriented to time, place, person, mood and affect Assessment/Plan Active Problems (Last Updated 12/14/19 @ 15:[address] Meena Coyne, DO) Chronic osteomyelitis involving pelvic region and thigh (Chronic) Sacral decubitus ulcer, stage IV (Chronic) Decubitus ulcer of right buttock, stage 4 (Chronic) Decubitus ulcer of left buttock, stage 4 (Chronic) Paraplegia (Chronic) The patient appears to be tolerating hyperbaric oxygen therapy well, which will continue as per the patient's medical plan. 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
[2020-04-21 13:31] VITALS: BP 132/78; BP 137/72; PULSE 70; PULSE 76; RESP 17; TEMP 36.3; TEMP 36.9
[2020-04-21 13:51] LABS: Bedside Glucose 97 mg/dL (70-110)
[2020-04-22 11:21] LABS: Bedside Glucose 175 mg/dL (70-110)
[2020-04-22 11:47] VITALS: BP 124/61; BP 132/73; PULSE 84; PULSE 91; RESP 16; RESP 17; TEMP 36.4; TEMP 36.8
--- NOTE | 2020-04-22 11:59 | PCM.HBO.PN ---
History of Present Illness Date of Service: 04/22/20 Presenting Chief Complaint: Non healing, chronic decubitus pressure ulcers, stage IV, with osteomyelitis - thigh, buttock, sacrum. GABBI CARBAJAL is a 35 year old currently undergoing hyperbaric oxygen therapy for Stage IV pressure ulcers with osteomyelitis of the thigh, buttocks, and sacrum. Progress: This represents the 88th such session of Planed 90 sessions of hyperbaric oxygen therapy. The patient appeared to tolerate HBO therapy well today. Tolerance of hyperbaric oxygen therapy: Hyperbaric oxygen therapy was administered as per the facility's protocol. HBO therapy was administered at 2 octavio for 90 minutes with no air breaks. The patient tolerated hyperbaric oxygen therapy well, without complaints or complications. Upon emergence from the hyperbaric chamber, the patient's vital signs remained stable. The patient was discharged in good condition. Pre- and post- blood glucose measurements are documented elsewhere. Past Medical History Chronic Problems (Last Updated 12/14/19 @ 15:[address] Meena Coyen, DO) Sacral decubitus ulcer, stage IV (Chronic) Decubitus ulcer of right buttock, stage 4 (Chronic) Decubitus ulcer of left buttock, stage 4 (Chronic) Chronic osteomyelitis involving pelvic region and thigh (Chronic) Paraplegia (Chronic) Sacral decubitus ulcer, stage IV (Chronic) Decubitus ulcer of right buttock, stage 4 (Chronic) Decubitus ulcer of left buttock, stage 4 (Chronic) Chronic osteomyelitis involving pelvic region and thigh (Chronic) Paraplegia (Chronic) Allergies/Adverse Reactions: Allergies lidocaine Allergy (Verified 09/03/19 13:05) Unknown Home Medications: Ambulatory Orders Medication Instructions Recorded Sitagliptin Phosphate [Januvia] 100 mg PO DAILY 10/11/17 Baclofen 5 mg PO BID 10/12/18 Diazepam [Valium] 5 mg PO BID 10/12/18 Fentanyl 200 ea TD 10/12/18 Ferrous Sulfate 325 mg PO 10/12/18 Insulin Glargine,Hum.rec.anlog 10 unit SQ 10/12/18 [Lantus Solostar] Insulin Lispro [Humalog KwikPen] unit SQ 10/12/18 Magnesium Oxide [Magnesium] 400 mg PO BID 10/12/18 Melatonin 3 mg PO 10/12/18 Metoclopramide HCl [Reglan] 5 mg PO TID 10/12/18 Oxycodone [Oxyfast] 30 mg PO Q4H PRN 10/12/18 Pregabalin [Lyrica] 50 mg PO BID 10/12/18 Sitagliptin Phosphate [Januvia] 100 mg PO 10/12/18 traZODone [Desyrel] 50 mg PO QHS 10/12/18 Meloxicam 7.5 mg PO BID PRN 05/17/19 Methenamine Hippurate [Hiprex] 1 gm PO BID 05/17/19 Maternal Family History: No pertinent history Smoking Status: Former smoker Tobacco Use: Non-smoker Physical Exam Vital Signs Temp Pulse Resp BP 97.6 F L 91 17 124/61 H 04/22/20 11:47 04/22/20 11:47 04/22/20 11:47 04/22/20 11:47 General: Alert, Oriented x3, Cooperative, No apparent distress HEENT: Atraumatic, TM's Clear Lungs: Clear to auscultation, Normal air movement Cardiovascular: Regular rate, Regular Rhythm Psych/Mental Status: Normal Affect, Appropriate, Alert and oriented to time, place, person, mood and affect Assessment/Plan Active Problems (Last Updated 12/14/19 @ 15:[address] Meena Coyne, DO) Chronic osteomyelitis involving pelvic region and thigh (Chronic) Sacral decubitus ulcer, stage IV (Chronic) Decubitus ulcer of right buttock, stage 4 (Chronic) Decubitus ulcer of left buttock, stage 4 (Chronic) Paraplegia (Chronic) The patient appears to be tolerating hyperbaric oxygen therapy well, which will continue as per the patient's medical plan. 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
[2020-04-22 13:35] LABS: Bedside Glucose 77 mg/dL (70-110)
[2020-04-23 11:15] LABS: Bedside Glucose 167 mg/dL (70-110)
[2020-04-23 11:48] VITALS: BP 121/70; BP 139/78; PULSE 61; PULSE 63; RESP 16; TEMP 36.4; TEMP 36.7
[2020-04-23 13:45] LABS: Bedside Glucose 151 mg/dL (70-110)
--- NOTE | 2020-04-23 14:54 | PCM.HBO.PN ---
History of Present Illness Date of Service: 04/23/20 Presenting Chief Complaint: Non healing, chronic decubitus pressure ulcers, stage IV, with osteomyelitis - thigh, buttock, sacrum. GABBI CARBAJAL is a 35 year old currently undergoing hyperbaric oxygen therapy for Stage IV pressure ulcers with osteomyelitis of the thigh, buttocks, and sacrum. Progress: This represents the 89th such session of Planed 90 sessions of hyperbaric oxygen therapy. The patient appeared to tolerate HBO therapy well today. Tolerance of hyperbaric oxygen therapy: Hyperbaric oxygen therapy was administered as per the facility's protocol. HBO therapy was administered at 2 octavio for 90 minutes with no air breaks. The patient tolerated hyperbaric oxygen therapy well, without complaints or complications. Upon emergence from the hyperbaric chamber, the patient's vital signs remained stable. The patient was discharged in good condition. Pre- and post- blood glucose measurements are documented elsewhere. Past Medical History Chronic Problems (Last Updated 12/14/19 @ 15:[address] Meena Coyne, DO) Sacral decubitus ulcer, stage IV (Chronic) Decubitus ulcer of right buttock, stage 4 (Chronic) Decubitus ulcer of left buttock, stage 4 (Chronic) Chronic osteomyelitis involving pelvic region and thigh (Chronic) Paraplegia (Chronic) Sacral decubitus ulcer, stage IV (Chronic) Decubitus ulcer of right buttock, stage 4 (Chronic) Decubitus ulcer of left buttock, stage 4 (Chronic) Chronic osteomyelitis involving pelvic region and thigh (Chronic) Paraplegia (Chronic) Allergies/Adverse Reactions: Allergies lidocaine Allergy (Verified 09/03/19 13:05) Unknown Home Medications: Ambulatory Orders Medication Instructions Recorded Sitagliptin Phosphate [Januvia] 100 mg PO DAILY 10/11/17 Baclofen 5 mg PO BID 10/12/18 Diazepam [Valium] 5 mg PO BID 10/12/18 Fentanyl 200 ea TD 10/12/18 Ferrous Sulfate 325 mg PO 10/12/18 Insulin Glargine,Hum.rec.anlog 10 unit SQ 10/12/18 [Lantus Solostar] Insulin Lispro [Humalog KwikPen] unit SQ 10/12/18 Magnesium Oxide [Magnesium] 400 mg PO BID 10/12/18 Melatonin 3 mg PO 10/12/18 Metoclopramide HCl [Reglan] 5 mg PO TID 10/12/18 Oxycodone [Oxyfast] 30 mg PO Q4H PRN 10/12/18 Pregabalin [Lyrica] 50 mg PO BID 10/12/18 Sitagliptin Phosphate [Januvia] 100 mg PO 10/12/18 traZODone [Desyrel] 50 mg PO QHS 10/12/18 Meloxicam 7.5 mg PO BID PRN 05/17/19 Methenamine Hippurate [Hiprex] 1 gm PO BID 05/17/19 Maternal Family History: No pertinent history Smoking Status: Former smoker Tobacco Use: Non-smoker Physical Exam Vital Signs Temp Pulse Resp BP 97.6 F L 61 16 121/70 H 04/23/20 11:48 04/23/20 11:48 04/23/20 11:48 04/23/20 11:48 General: Alert, Oriented x3, Cooperative, No apparent distress HEENT: Atraumatic, TM's Clear Lungs: Clear to auscultation, Normal air movement Cardiovascular: Regular rate, Regular Rhythm Psych/Mental Status: Normal Affect, Appropriate, Alert and oriented to time, place, person, mood and affect Assessment/Plan Active Problems (Last Updated 12/14/19 @ 15:[address] Meena Coyne, DO) Chronic osteomyelitis involving pelvic region and thigh (Chronic) Sacral decubitus ulcer, stage IV (Chronic) Decubitus ulcer of right buttock, stage 4 (Chronic) Decubitus ulcer of left buttock, stage 4 (Chronic) Paraplegia (Chronic) The patient appears to be tolerating hyperbaric oxygen therapy well, which will continue as per the patient's medical plan. 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
[2020-04-24 10:51] VITALS: BP 124/52; PULSE 92; RESP 16; TEMP 36.6; BMI 21.8
[2020-04-24 11:21] LABS: Bedside Glucose 144 mg/dL (70-110)
--- NOTE | 2020-04-24 12:43 | PCM.HBO.PN ---
History of Present Illness Date of Service: 04/24/20 Presenting Chief Complaint: Non healing, chronic decubitus pressure ulcers, stage IV, with osteomyelitis - thigh, buttock, sacrum. GABBI CARBAJAL is a 35 year old currently undergoing hyperbaric oxygen therapy for Stage IV pressure ulcers with osteomyelitis of the thigh, buttocks, and sacrum. Progress: This represents the 90th such session of Planed 90 sessions of hyperbaric oxygen therapy. The patient appeared to tolerate HBO therapy well today. Tolerance of hyperbaric oxygen therapy: Hyperbaric oxygen therapy was administered as per the facility's protocol. HBO therapy was administered at 2 octavio for 90 minutes with no air breaks. The patient tolerated hyperbaric oxygen therapy well, without complaints or complications. Upon emergence from the hyperbaric chamber, the patient's vital signs remained stable. The patient was discharged in good condition. Pre- and post- blood glucose measurements are documented elsewhere. Past Medical History Chronic Problems (Last Updated 12/14/19 @ 15:[address] Meena Coyne, DO) Sacral decubitus ulcer, stage IV (Chronic) Decubitus ulcer of right buttock, stage 4 (Chronic) Decubitus ulcer of left buttock, stage 4 (Chronic) Chronic osteomyelitis involving pelvic region and thigh (Chronic) Paraplegia (Chronic) Sacral decubitus ulcer, stage IV (Chronic) Decubitus ulcer of right buttock, stage 4 (Chronic) Decubitus ulcer of left buttock, stage 4 (Chronic) Chronic osteomyelitis involving pelvic region and thigh (Chronic) Paraplegia (Chronic) Allergies/Adverse Reactions: Allergies lidocaine Allergy (Verified 09/03/19 13:05) Unknown Home Medications: Ambulatory Orders Medication Instructions Recorded Sitagliptin Phosphate [Januvia] 100 mg PO DAILY 10/11/17 Baclofen 5 mg PO BID 10/12/18 Diazepam [Valium] 5 mg PO BID 10/12/18 Fentanyl 200 ea TD 10/12/18 Ferrous Sulfate 325 mg PO 10/12/18 Insulin Glargine,Hum.rec.anlog 10 unit SQ 10/12/18 [Lantus Solostar] Insulin Lispro [Humalog KwikPen] unit SQ 10/12/18 Magnesium Oxide [Magnesium] 400 mg PO BID 10/12/18 Melatonin 3 mg PO 10/12/18 Metoclopramide HCl [Reglan] 5 mg PO TID 10/12/18 Oxycodone [Oxyfast] 30 mg PO Q4H PRN 10/12/18 Pregabalin [Lyrica] 50 mg PO BID 10/12/18 Sitagliptin Phosphate [Januvia] 100 mg PO 10/12/18 traZODone [Desyrel] 50 mg PO QHS 10/12/18 Meloxicam 7.5 mg PO BID PRN 05/17/19 Methenamine Hippurate [Hiprex] 1 gm PO BID 05/17/19 Maternal Family History: No pertinent history Smoking Status: Former smoker Tobacco Use: Non-smoker Physical Exam Vital Signs Temp Pulse Resp BP 97.9 F 92 16 124/52 H 04/24/20 10:51 04/24/20 10:51 04/24/20 10:51 04/24/20 10:51 General: Alert, Oriented x3, Cooperative, No apparent distress HEENT: Atraumatic, TM's Clear Lungs: Clear to auscultation, Normal air movement Cardiovascular: Regular rate, Regular Rhythm Psych/Mental Status: Normal Affect, Appropriate, Alert and oriented to time, place, person, mood and affect Assessment/Plan Active Problems (Last Updated 12/14/19 @ 15:[address] Meena Coyne, DO) Chronic osteomyelitis involving pelvic region and thigh (Chronic) Sacral decubitus ulcer, stage IV (Chronic) Decubitus ulcer of right buttock, stage 4 (Chronic) Decubitus ulcer of left buttock, stage 4 (Chronic) Paraplegia (Chronic) The patient appears to be tolerating hyperbaric oxygen therapy well, which will continue as per the patient's medical plan. 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
[2020-04-24 13:41] LABS: Bedside Glucose 175 mg/dL (70-110)
[2020-04-24 14:25] VITALS: BP 119/86; BP 124/52; PULSE 69; PULSE 96; RESP 16; TEMP 36.5; TEMP 36.6
[2020-05-08 10:33] VITALS: BP 118/72; PULSE 91; RESP 18; TEMP 36.7; BMI 21.8
--- NOTE | 2020-05-08 12:50 | PN.PCM_ITS ---
(1) Chronic osteomyelitis involving pelvic region and thigh Status: Chronic Code(s): M86.659 - Other chronic osteomyelitis, unspecified thigh (2) Decubitus ulcer of left buttock, stage 4 Status: Chronic Code(s): L89.324 - Pressure ulcer of left buttock, stage 4 (3) Decubitus ulcer of right buttock, stage 4 Status: Chronic Code(s): L89.314 - Pressure ulcer of right buttock, stage 4 (4) Paraplegia Status: Chronic Code(s): G82.20 - Paraplegia, unspecified (5) Sacral decubitus ulcer, stage IV Status: Chronic Code(s): L89.154 - Pressure ulcer of sacral region, stage 4 Type of Wound Date of Service: 05/08/20 Chief Complaint: Non healing, chronic decubitus pressure ulcers, stage IV, with osteomyelitis - thigh, buttock, sacrum. History of Wound: Mr. Joyce is a 33yo well known to the wound center but was last seen here over a month ago. Initial sacral ulcer was said to have started in November and Buttock ulcers were noted subsequently. He has had an extensive hospital stay over the last couple of months following a work related injury. Both during his hopsital and prison stays, he had wound care ranging from surgical debridement, wound vac and collagen use. He was scheduled to be restarted on his wound Vac prior to [facility] [place]. He reports significant drainage from the wounds. Also of note is a history of osteomyelitis for which he was on a 6 week IV antibiotic. His however states they were informed that he had developed chronic extensive pelvic area osteomyelitis. He feels well otherwise at this time and denies chills, fever,nausea, vomitting or change in bowel habit. 02/22/2019: Above, he was last seen here over a month ago. Had an extensive hospital stay [facility] due to compli cations from prior neck surgery. They state that his ulcers have been stable. Been doing the acetic acid soak for 10 minutes and then calcium alginate/collagen dressings. Denies any concerns at this time. Progress of Wound: No new concerns. Stable Ulcers. Has an appointment at [facility] in June. - Physical Exam Vital Signs Temp Pulse Resp BP 98.1 F 91 18 118/72 05/08/20 10:33 05/08/20 10:33 05/08/20 10:33 05/08/20 10:33 General: Alert, Oriented x3, Cooperative, No apparent distress HEENT: Atraumatic, Normocephalic Oral: Moist Mucosa Neck: Supple Lungs: Normal air movement Extremities: No cyanosis Skin: Ulcer/ Wound Wound Measurements and Assessment WC - Nurse 1 - General Ulcer Measurement Start: 04/16/20 11:56 Freq: Status: Active Protocol: Activity Type Activity Date Activity User E-Sign Co-Sign Detail Recorded Client Recorded Date Recorded By Document 05/08/20 10:33 DL [id number] 05/08/20 10:44 DL 05/08/20 10:33 Wound Center Nurse 1 [Ulcer Assessment] #7 Sacral -Current Size (cm) - Length 4.8 -Current Size (cm) - Width 11 -Current Size (cm) - Depth 1 -Total Square Cm 52.8 -Photo Taken No -Undermining/Tunneling Starts (O' 10 clock) -Undermining/Tunneling Ends (O'clock) 11 -Maximum Distance (cm) 6 -Undermining/Tunneling Starts #2 (O' 1 clock) -Undermining/Tunneling Ends #2 (O' 2 clock) -Maximum Distance #2 (cm) 1.2 -Exudate Amt Large -Exudate Type Serosanguineous -Wound Margin Thickened & Rolled Under -Granulation Amt Medium (34-66%) -Granulation Quality Red -Necrosis Amt Medium (34-66%) -Necrotic Tissue Type Adherent Slough -Texture (Sheyla-wound Skin Appearance) Assessed, Scarring -Moisture (Sheyla-wound Skin Appearance No Abnormality, ) Assessed -Color (Sheyla-wound Skin Appearance) No Abnormality, Assessed -Temperature (Sheyla-wound Skin No Abnormality Appearance) (Pt Warm) -Tenderness on Palpation (Sheyla-wound No Skin Appearance) -Ulcer Cleansing soap and water -Foul Odor after Cleansing No -Anesthetic Used 4% Lidocaine Solution #6 R Buttocks -Current Size (cm) - Length 7.1 -Current Size (cm) - Width 3.5 -Current Size (cm) - Depth 1.1 -Total Square Cm 24.85 -Exudate Amt Large -Exudate Type Serosanguineous -Wound Margin Distinct, Outline Attached -Granulation Amt Medium (34-66%) -Granulation Quality Red -Necrosis Amt Medium (34-66%) -Necrotic Tissue Type Adherent Slough -Texture (Sheyla-wound Skin Appearance) Assessed, Scarring -Moisture (Sheyla-wound Skin Appearance No Abnormality, ) Assessed -Color (Sheyla-wound Skin Appearance) No Abnormality, Assessed -Temperature (Sheyla-wound Skin No Abnormality Appearance) (Pt Warm) -Tenderness on Palpation (Sheyla-wound No Skin Appearance) -Ulcer Cleansing soap and water -Foul Odor after Cleansing No -Anesthetic Used 4% Lidocaine Solution #5 L Buttocks -Current Size (cm) - Length 7.2 -Current Size (cm) - Width 4 -Current Size (cm) - Depth 2 -Total Square Cm 28.8 -Exudate Amt Medium -Exudate Type Serosanguineous -Wound Margin Distinct, Outline Attached -Granulation Amt Medium (34-66%) -Granulation Quality Red -Necrosis Amt Medium (34-66%) -Necrotic Tissue Type Adherent Slough -Texture (Sheyla-wound Skin Appearance) Assessed, Scarring -Moisture (Sheyla-wound Skin Appearance No Abnormality, ) Assessed -Color (Sheyla-wound Skin Appearance) No Abnormality, Assessed -Temperature (Sheyla-wound Skin No Abnormality Appearance) (Pt Warm) -Tenderness on Palpation (Sheyla-wound No Skin Appearance) -Ulcer Cleansing soap and water -Foul Odor after Cleansing No -Anesthetic Used 4% Lidocaine Solution WC - Nurse 2 - General Ulcer CM Notes Start: 04/16/20 11:56 Freq: Status: Active Protocol: Activity Type Activity Date Activity User E-Sign Co-Sign Detail Recorded Client Recorded Date Recorded By Document 05/08/20 10:55 MW [id number] 05/08/20 11:02 MW 05/08/20 10:55 Wound Center Nurse 2 [Procedure/Treatment] #7 Sacral -Time 10:55 -Correct Patient Yes -Correct Side, Site, Position Yes -Correct Procedure Yes -Procedure Performed Yes -Type of Procedure Debridement -Clinical Debridement Subcutaneous -Tissue Removed Subcutaneous -Post Debridement (cm) - Length 4.5 -Post Debridement (cm) - Width 12.0 -Post Debridement (cm) - Depth 1.5 -Total Square (Post) (cm) 54.00 -Area of Debridement (cm) - Length 4.5 -Area of Debridement (cm) - Width 12.0 -Total Square (Area) (cm) 54.00 -Tunneling No -Undermining/Tunneling No -Circular Undermining No -Wound/Ulcer Outcome Not Healed -Ulcer Cleansing Rinsed/ Irrigated with Saline -Foul Odor after Cleansing No -Bioengineered Tissue No -Bleeding Controlled with Pressure -Offloading No -Treatment Response Procedure Tolerated Well -Debridement - Subq, 1st 20sq cm Yes -Debridement, SubQ, ea addt'l 20sq cm 5 or part thereof #6 R Buttocks -Time 10:55 -Correct Patient Yes -Correct Side, Site, Position Yes -Correct Procedure Yes -Procedure Performed Yes -Type of Procedure Debridement -Clinical Debridement Subcutaneous -Tissue Removed Subcutaneous -Post Debridement (cm) - Length 7.5 -Post Debridement (cm) - Width 3.0 -Post Debridement (cm) - Depth 1.9 -Total Square (Post) (cm) 22.50 -Area of Debridement (cm) - Length 7.5 -Area of Debridement (cm) - Width 3.0 -Total Square (Area) (cm) 22.50 -Tunneling No -Undermining/Tunneling No -Circular Undermining No -Wound/Ulcer Outcome Not Healed -Ulcer Cleansing Rinsed/ Irrigated with Saline -Foul Odor after Cleansing No -Bioengineered Tissue No -Bleeding Controlled with Pressure -Offloading No -Treatment Response Procedure Tolerated Well -Debridement - Subq, 1st 20sq cm No #5 L Buttocks -Time 10:56 -Correct Patient Yes -Correct Side, Site, Position Yes -Correct Procedure Yes -Procedure Performed Yes -Type of Procedure Debridement -Clinical Debridement Subcutaneous -Tissue Removed Subcutaneous -Post Debridement (cm) - Length 8.0 -Post Debridement (cm) - Width 4.0 -Post Debridement (cm) - Depth 2.3 -Total Square (Post) (cm) 32.00 -Area of Debridement (cm) - Length 8.0 -Area of Debridement (cm) - Width 4.0 -Total Square (Area) (cm) 32.00 -Tunneling No -Undermining/Tunneling No -Circular Undermining No -Wound/Ulcer Outcome Not Healed -Ulcer Cleansing Rinsed/ Irrigated with Saline -Foul Odor after Cleansing No -Bioengineered Tissue No -Bleeding Controlled with Pressure -Offloading No -Treatment Response Procedure Tolerated Well -Debridement - Subq, 1st 20sq cm No [See Physician Procedure note for Specifics] Pain Scale: 0-10 Numeric [Pain] -Is Patient Pain Free? Yes Musculoskeletal: No Muscle Wasting Neurological: Cranial nerves II-XII grossly intact Psych/Mental Status: Normal Affect Debridement Note Post-Debridement Measurements/Treatment WC - Nurse 2 - General Ulcer CM Notes Start: 04/16/20 11:56 Freq: Status: Active Protocol: Activity Type Activity Date Activity User E-Sign Co-Sign Detail Recorded Client Recorded Date Recorded By Document 04/17/20 11:38 MW [id number] 04/17/20 11:44 MW Document 04/24/20 11:04 MW [id number] 04/24/20 11:15 MW Document 05/08/20 10:55 MW [id number] 05/08/20 11:02 MW 04/17/20 04/24/20 05/08/20 11:38 11:04 10:55 Wound Center Nurse 2 #7 Sacral -Time 11:38 11:04 10:55 -Correct Patient Yes Yes Yes -Correct Side, Site, Position Yes Yes Yes -Correct Procedure Yes Yes Yes -Procedure Performed Yes Yes Yes -Type of Procedure Debridement Debridement Debridement -Clinical Debridement Subcutaneous Subcutaneous Subcutaneous -Tissue Removed Subcutaneous Subcutaneous Subcutaneous -Post Debridement (cm) - Length 4.0 4.0 4.5 -Post Debridement (cm) - Width 13.0 12.0 12.0 -Post Debridement (cm) - Depth 1.5 1.4 1.5 -Total Square (Post) (cm) 52.00 48.00 54.00 -Area of Debridement (cm) - Length 4.0 4.0 4.5 -Area of Debridement (cm) - Width 13.0 12.0 12.0 -Total Square (Area) (cm) 52.00 48.00 54.00 -Tunneling No No No -Undermining/Tunneling No No No -Circular Undermining No No No -Wound/Ulcer Outcome Not Healed Not Healed Not Healed -Ulcer Cleansing Rinsed/ Rinsed/ Rinsed/ Irrigated with Irrigated with Irrigated with Saline Saline Saline -Foul Odor after Cleansing No No No -Bioengineered Tissue No No No -Bleeding Controlled with Pressure Pressure Pressure -Offloading No No No -Treatment Response Procedure Procedure Procedure Tolerated Well Tolerated Well Tolerated Well -Debridement - Subq, 1st 20sq cm Yes Yes Yes -Debridement, SubQ, ea addt'l 20sq cm 6 5 5 or part thereof #6 R Buttocks -Time 11:39 11:05 10:55 -Correct Patient Yes Yes Yes -Correct Side, Site, Position Yes Yes Yes -Correct Procedure Yes Yes Yes -Procedure Performed Yes Yes Yes -Type of Procedure Debridement Debridement Debridement -Clinical Debridement Subcutaneous Subcutaneous Subcutaneous -Tissue Removed Subcutaneous Subcutaneous Subcutaneous -Post Debridement (cm) - Length 9.0 8.0 7.5 -Post Debridement (cm) - Width 4.0 3.0 3.0 -Post Debridement (cm) - Depth 1.5 1.8 1.9 -Total Square (Post) (cm) 36.00 24.00 22.50 -Area of Debridement (cm) - Length 9.0 8.0 7.5 -Area of Debridement (cm) - Width 4.0 3.0 3.0 -Total Square (Area) (cm) 36.00 24.00 22.50 -Tunneling No No No -Undermining/Tunneling No No No -Circular Undermining No No No -Wound/Ulcer Outcome Not Healed Not Healed Not Healed -Ulcer Cleansing Rinsed/ Rinsed/ Rinsed/ Irrigated with Irrigated with Irrigated with Saline Saline Saline -Foul Odor after Cleansing No No No -Bioengineered Tissue No No No -Bleeding Controlled with Pressure Pressure Pressure -Offloading No No No -Treatment Response Procedure Procedure Procedure Tolerated Well Tolerated Well Tolerated Well -Debridement - Subq, 1st 20sq cm No No No #5 L Buttocks -Time 11:39 11:09 10:56 -Correct Patient Yes Yes Yes -Correct Side, Site, Position Yes Yes Yes -Correct Procedure Yes Yes Yes -Procedure Performed Yes Yes Yes -Type of Procedure Debridement Debridement Debridement -Clinical Debridement Subcutaneous Subcutaneous Subcutaneous -Tissue Removed Subcutaneous Subcutaneous Subcutaneous -Post Debridement (cm) - Length 8.0 8.0 8.0 -Post Debridement (cm) - Width 5.0 5.0 4.0 -Post Debridement (cm) - Depth 2.3 2.0 2.3 -Total Square (Post) (cm) 40.00 40.00 32.00 -Area of Debridement (cm) - Length 8.0 8.0 8.0 -Area of Debridement (cm) - Width 5.0 5.0 4.0 -Total Square (Area) (cm) 40.00 40.00 32.00 -Tunneling No No No -Undermining/Tunneling No No No -Circular Undermining No No No -Wound/Ulcer Outcome Not Healed Not Healed Not Healed -Ulcer Cleansing Rinsed/ Rinsed/ Rinsed/ Irrigated with Irrigated with Irrigated with Saline Saline Saline -Foul Odor after Cleansing No No No -Bioengineered Tissue No No No -Bleeding Controlled with Pressure Pressure Pressure -Offloading No No No -Treatment Response Procedure Procedure Tolerated Well Tolerated Well -Debridement - Subq, 1st 20sq cm No No No Pain Scale: 0-10 Numeric Is Patient Pain Free? Yes Yes Yes Wound debrided: Sacral Wound Grade/Stage: Stage IV Type of Debridement: Excisional debridement Anesthesia Used: 4% Lidocaine Solution Depth: Down to and including healthy tissue, in the subcutaneous layer Percentage of wound debrided: 100 Instrument Used: 5mm curette Tissue Removed: Slough and devitalized tissue Severity: Fat Layer Exposed Amount of bleeding with debridement: Mild Bleeding Controlled with: Pressure Patient tolerated procedure well - Additional Wound Wound debrided: Right Buttock Wound Grade/Stage: Stage IV Type of Debridement: Excisional debridement Anesthesia Used: 4% Lidocaine Solution Depth: Down to and including healthy tissue, in the subcutaneous layer Percentage of wound debrided: 100 Instrument Used: 5mm curette Tissue Removed: Slough and devitalized tissue Severity: Fat Layer Exposed Amount of bleeding with debridement: Mild Bleeding Controlled with: Pressure Patient tolerated procedure: Patient tolerated procedure well - Additional Wound Wound debrided: Left Buttock Wound Grade/Stage: Stage IV Type of Debridement: Excisional debridement Anesthesia Used: 4% Lidocaine Solution Depth: Down to and including healthy tissue, in the subcutaneous layer Percentage of wound debrided: 100 Instrument Used: 5mm curette Tissue Removed: Slough and devitalized tissue Severity: Fat Layer Exposed Amount of bleeding with debridement: Mild Bleeding Controlled with: Pressure Patient tolerated procedure: Patient tolerated procedure well Assessment/Plan Active Problems (Last Updated 12/14/19 @ 15:[address] Meena Coyne, DO) Chronic osteomyelitis involving pelvic region and thigh (Chronic) Sacral decubitus ulcer, stage IV (Chronic) Decubitus ulcer of right buttock, stage 4 (Chronic) Decubitus ulcer of left buttock, stage 4 (Chronic) Paraplegia (Chronic) Assessment: Chronic Stage IV sacral, left and right decubitus ulcers. Paraplegia. Chronic Osteomyelitis of pelvic region. Plan: Debridement done as documented above, procedure well-tolerated. Continue 10 minute Acetic acid soak to all ulcers then calcium alginate/collagen dressing. Change daily to twice daily depending on drainage. Continue optimal dietary and protein intake. Offloading also recommended. Now open to possible surgical closure/ graft. Referred to [facility] plastic surgery and has an appointment in June. Currently on a break from [employer]. His questions were answered and they were advised to call with any further questions or concerns. Follow up in 1 week. This note was generated with [employer] dictation software. It may contain incorrect words, spelling, and punctuation that were not noted in checking the note before signing. [id number]: [id number] Oxana subq tissue 20 sq cm/< Add On Codes: 25191 Oxana subq tissue add-on - x 5. Additional square centimeter debrided, please refer to clinical note.
== END 2020-05-11 23:59 ==
LOC: WC 10:30
PROVIDERS: Visit Provider Internal Medicine
DX: L89.324 Pressure ulcer of left buttock, stage 4 (principal); L89.314 Pressure ulcer of right buttock, stage 4; L89.154 Pressure ulcer of sacral region, stage 4; M86.69 Other chronic osteomyelitis, multiple sites; G82.20 Paraplegia, unspecified; Z79.4 Long term (current) use of insulin; Z79.899 Other long term (current) drug therapy; Z87.891 Personal history of nicotine dependence
CPT/HCPCS: 11042; 11045; 82962; 99183; G0277

== ENCOUNTER 2020-05-15 10:15 | Outpatient (RCR) | payer OTHER, MEDICAID, SELFPAY ==
[2020-05-12 00:20] VITALS: BP 118/72; PULSE 91; RESP 18; TEMP 36.7
[2020-05-15 10:15] VITALS: BP 110/63; PULSE 85; TEMP 35.7; BMI 21.8
--- NOTE | 2020-05-15 13:48 | PCM.WC.PN ---
(1) Chronic osteomyelitis involving pelvic region and thigh Status: Chronic Code(s): M86.659 - Other chronic osteomyelitis, unspecified thigh (2) Decubitus ulcer of left buttock, stage 4 Status: Chronic Code(s): L89.324 - Pressure ulcer of left buttock, stage 4 (3) Decubitus ulcer of right buttock, stage 4 Status: Chronic Code(s): L89.314 - Pressure ulcer of right buttock, stage 4 (4) Paraplegia Status: Chronic Code(s): G82.20 - Paraplegia, unspecified (5) Sacral decubitus ulcer, stage IV Status: Chronic Code(s): L89.154 - Pressure ulcer of sacral region, stage 4 Type of Wound Date of Service: 05/15/20 Chief Complaint: Non healing, chronic decubitus pressure ulcers, stage IV, with osteomyelitis - thigh, buttock, sacrum. History of Wound: Mr. Joyce is a 33yo well known to the wound center but was last seen here over a month ago. Initial sacral ulcer was said to have started in November and Buttock ulcers were noted subsequently. He has had an extensive hospital stay over the last couple of months following a work related injury. Both during his hopsital and skilled nursing stays, he had wound care ranging from surgical debridement, wound vac and collagen use. He was scheduled to be restarted on his wound Vac prior to his discharge from [facility]. He reports significant drainage from the wounds. Also of note is a history of osteomyelitis for which he was on a 6 week IV antibiotic. His however states they were informed that he had developed chronic extensive pelvic area osteomyelitis. He feels well otherwise at this time and denies chills, fever,nausea, vomitting or change in bowel habit. 02/22/2019: Above, he was last seen here over a month ago. Had an extensive hospital stay [facility] due to complications from prior neck surgery. They state that his ulcers have been stable. Been doing the acetic acid soak for 10 minutes and then calcium alginate/collagen dressings. Denies any concerns at this time. Progress of Wound: No new concerns. Stable Ulcers. Has an appointment at [facility] in June. - Physical Exam Vital Signs Temp Pulse Resp BP 96.2 F L 85 18 110/63 05/15/20 10:15 05/15/20 10:15 05/12/20 00:20 05/15/20 10:15 General: Alert, Oriented x3, Cooperative, No apparent distress HEENT: Atraumatic, Normocephalic Oral: Moist Mucosa Neck: Supple Lungs: Normal air movement Extremities: No cyanosis Skin: Ulcer/ Wound Wound Measurements and Assessment WC - Nurse 1 - General Ulcer Measurement Start: 05/15/20 10:15 Freq: Status: Active Protocol: Activity Type Activity Date Activity User E-Sign Co-Sign Detail Recorded Client Recorded Date Recorded By Document 05/15/20 10:15 FRANCO [id number] 05/15/20 10:23 FRANCO 05/15/20 10:15 Wound Center Nurse 1 [Ulcer Assessment] #7 Sacral -Current Size (cm) - Length 4.3 -Current Size (cm) - Width 11 -Current Size (cm) - Depth 1.5 -Total Square Cm 47.3 -Undermining/Tunneling Starts (O' 1 clock) -Undermining/Tunneling Ends (O'clock) 2 -Maximum Distance (cm) 1 -Undermining/Tunneling Starts #2 (O' 11 clock) -Undermining/Tunneling Ends #2 (O' 12 clock) -Maximum Distance #2 (cm) 4 -Classification - Thickness Partial Thickness -Exudate Amt Large -Exudate Type Serosanguineous -Wound Margin Thickened & Rolled Under -Granulation Amt Medium (34-66%) -Granulation Quality Red -Necrosis Amt Medium (34-66%) -Necrotic Tissue Type Adherent Slough -Texture (Sheyla-wound Skin Appearance) Assessed, Scarring -Moisture (Sheyla-wound Skin Appearance Assessed,Dry/ ) Scaly -Color (Sheyla-wound Skin Appearance) No Abnormality, Assessed -Temperature (Sheyla-wound Skin No Abnormality Appearance) (Pt Warm) -Tenderness on Palpation (Sheyla-wound No Skin Appearance) -Ulcer Cleansing Rinsed/ Irrigated with Saline -Foul Odor after Cleansing Yes #6 R Buttocks -Current Size (cm) - Length 7 -Current Size (cm) - Width 2.5 -Current Size (cm) - Depth 1.7 -Total Square Cm 17.5 -Exudate Amt Medium -Exudate Type Serosanguineous -Wound Margin Distinct, Outline Attached -Granulation Amt Medium (34-66%) -Granulation Quality Red -Necrosis Amt Medium (34-66%) -Necrotic Tissue Type Adherent Slough -Texture (Sheyla-wound Skin Appearance) Assessed, Scarring -Moisture (Sheyla-wound Skin Appearance No Abnormality, ) Assessed -Color (Sheyla-wound Skin Appearance) No Abnormality, Assessed -Temperature (Sheyla-wound Skin No Abnormality Appearance) (Pt Warm) -Tenderness on Palpation (Sheyla-wound No Skin Appearance) -Ulcer Cleansing Rinsed/ Irrigated with Saline -Foul Odor after Cleansing Yes #5 L Buttocks -Current Size (cm) - Length 8 -Current Size (cm) - Width 4 -Current Size (cm) - Depth 1.5 -Total Square Cm 32 -Undermining/Tunneling Starts (O' 3 clock) -Undermining/Tunneling Ends (O'clock) 4 -Maximum Distance (cm) 2 -Exudate Amt Large -Exudate Type Serosanguineous -Wound Margin Distinct, Outline Attached -Granulation Amt Medium (34-66%) -Granulation Quality Red -Necrosis Amt Medium (34-66%) -Necrotic Tissue Type Adherent Slough -Texture (Sheyla-wound Skin Appearance) Assessed, Scarring -Moisture (Sheyla-wound Skin Appearance No Abnormality, ) Assessed -Color (Sheyla-wound Skin Appearance) No Abnormality, Assessed -Temperature (Sheyla-wound Skin No Abnormality Appearance) (Pt Warm) -Tenderness on Palpation (Sheyla-wound No Skin Appearance) -Ulcer Cleansing Rinsed/ Irrigated with Saline -Foul Odor after Cleansing Yes WC - Nurse 2 - General Ulcer CM Notes Start: 05/15/20 10:15 Freq: Status: Active Protocol: Activity Type Activity Date Activity User E-Sign Co-Sign Detail Recorded Client Recorded Date Recorded By Document 05/15/20 10:48 MW [id number] 05/15/20 10:54 MW 05/15/20 10:48 Wound Center Nurse 2 [Procedure/Treatment] #7 Sacral -Time 10:48 -Correct Patient Yes -Correct Side, Site, Position Yes -Correct Procedure Yes -Procedure Performed Yes -Type of Procedure Debridement -Clinical Debridement Subcutaneous -Tissue Removed Subcutaneous -Post Debridement (cm) - Length 4.0 -Post Debridement (cm) - Width 12.0 -Post Debridement (cm) - Depth 1.2 -Total Square (Post) (cm) 48.00 -Area of Debridement (cm) - Length 4.0 -Area of Debridement (cm) - Width 12.0 -Total Square (Area) (cm) 48.00 -Tunneling No -Undermining/Tunneling No -Circular Undermining No -Wound/Ulcer Outcome Not Healed -Ulcer Cleansing Rinsed/ Irrigated with Saline -Foul Odor after Cleansing No -Bioengineered Tissue No -Bleeding Controlled with Pressure -Offloading No -Treatment Response Procedure Tolerated Well -Debridement - Subq, 1st 20sq cm Yes -Debridement, SubQ, ea addt'l 20sq cm 6 or part thereof #6 R Buttocks -Time 10:48 -Correct Patient Yes -Correct Side, Site, Position Yes -Correct Procedure Yes -Procedure Performed Yes -Type of Procedure Debridement -Clinical Debridement Subcutaneous -Tissue Removed Subcutaneous -Post Debridement (cm) - Length 8.0 -Post Debridement (cm) - Width 4.0 -Post Debridement (cm) - Depth 1.5 -Total Square (Post) (cm) 32.00 -Area of Debridement (cm) - Length 8.0 -Area of Debridement (cm) - Width 4.0 -Total Square (Area) (cm) 32.00 -Tunneling No -Undermining/Tunneling No -Circular Undermining No -Wound/Ulcer Outcome Not Healed -Ulcer Cleansing Rinsed/ Irrigated with Saline -Foul Odor after Cleansing No -Bioengineered Tissue No -Bleeding Controlled with Pressure -Offloading No -Treatment Response Procedure Tolerated Well -Debridement - Subq, 1st 20sq cm No #5 L Buttocks -Time 10:49 -Correct Patient Yes -Correct Side, Site, Position Yes -Correct Procedure Yes -Procedure Performed Yes -Type of Procedure Debridement -Clinical Debridement Subcutaneous -Tissue Removed Subcutaneous -Post Debridement (cm) - Length 8.0 -Post Debridement (cm) - Width 6.0 -Post Debridement (cm) - Depth 2.0 -Total Square (Post) (cm) 48.00 -Area of Debridement (cm) - Length 8.0 -Area of Debridement (cm) - Width 6.0 -Total Square (Area) (cm) 48.00 -Tunneling No -Undermining/Tunneling No -Circular Undermining No -Wound/Ulcer Outcome Not Healed -Ulcer Cleansing Rinsed/ Irrigated with Saline -Foul Odor after Cleansing No -Bioengineered Tissue No -Bleeding Controlled with Pressure -Offloading No -Treatment Response Procedure Tolerated Well -Debridement - Subq, 1st 20sq cm No [See Physician Procedure note for Specifics] Pain Scale: 0-10 Numeric [Pain] -Is Patient Pain Free? Yes - Nurse 3 - General Ulcer D/C NN Start: 05/15/20 10:15 Freq: Status: Active Protocol: Activity Type Activity Date Activity User E-Sign Co-Sign Detail Recorded Client Recorded Date Recorded By Document 05/15/20 11:36 DL [id number] 05/15/20 11:38 DL 05/15/20 11:36 Wound Care Nurse 3 [Wound Dressing] #7 Sacral -Ulcer Cleansing Rinsed/ Irrigated with Saline -Foul Odor after Cleansing No #6 R Buttocks -Ulcer Cleansing Rinsed/ Irrigated with Saline #5 L Buttocks -Ulcer Cleansing Rinsed/ Irrigated with Saline -Foul Odor after Cleansing No Pain Scale: 0-10 Numeric [Pain] -Is Patient Pain Free? Yes - Visit Discharge [Visit Discharge Information] -Discharge Condition Stable -Ambulatory Status Wheelchair -Transportation Private Auto -Accompanied by HH Aid -Notes: Dressings applied per Radha, HH Aid/ caregiver Musculoskeletal: No Muscle Wasting Neurological: Cranial nerves II-XII grossly intact Psych/Mental Status: Normal Affect Debridement Note Post-Debridement Measurements/Treatment WC - Nurse 2 - General Ulcer CM Notes Start: 05/15/20 10:15 Freq: Status: Active Protocol: Activity Type Activity Date Activity User E-Sign Co-Sign Detail Recorded Client Recorded Date Recorded By Document 05/15/20 10:48 MW [id number] 05/15/20 10:54 MW 05/15/20 10:48 Wound Center Nurse 2 #7 Sacral -Time 10:48 -Correct Patient Yes -Correct Side, Site, Position Yes -Correct Procedure Yes -Procedure Performed Yes -Type of Procedure Debridement -Clinical Debridement Subcutaneous -Tissue Removed Subcutaneous -Post Debridement (cm) - Length 4.0 -Post Debridement (cm) - Width 12.0 -Post Debridement (cm) - Depth 1.2 -Total Square (Post) (cm) 48.00 -Area of Debridement (cm) - Length 4.0 -Area of Debridement (cm) - Width 12.0 -Total Square (Area) (cm) 48.00 -Tunneling No -Undermining/Tunneling No -Circular Undermining No -Wound/Ulcer Outcome Not Healed -Ulcer Cleansing Rinsed/ Irrigated with Saline -Foul Odor after Cleansing No -Bioengineered Tissue No -Bleeding Controlled with Pressure -Offloading No -Treatment Response Procedure Tolerated Well -Debridement - Subq, 1st 20sq cm Yes -Debridement, SubQ, ea addt'l 20sq cm 6 or part thereof #6 R Buttocks -Time 10:48 -Correct Patient Yes -Correct Side, Site, Position Yes -Correct Procedure Yes -Procedure Performed Yes -Type of Procedure Debridement -Clinical Debridement Subcutaneous -Tissue Removed Subcutaneous -Post Debridement (cm) - Length 8.0 -Post Debridement (cm) - Width 4.0 -Post Debridement (cm) - Depth 1.5 -Total Square (Post) (cm) 32.00 -Area of Debridement (cm) - Length 8.0 -Area of Debridement (cm) - Width 4.0 -Total Square (Area) (cm) 32.00 -Tunneling No -Undermining/Tunneling No -Circular Undermining No -Wound/Ulcer Outcome Not Healed -Ulcer Cleansing Rinsed/ Irrigated with Saline -Foul Odor after Cleansing No -Bioengineered Tissue No -Bleeding Controlled with Pressure -Offloading No -Treatment Response Procedure Tolerated Well -Debridement - Subq, 1st 20sq cm No #5 L Buttocks -Time 10:49 -Correct Patient Yes -Correct Side, Site, Position Yes -Correct Procedure Yes -Procedure Performed Yes -Type of Procedure Debridement -Clinical Debridement Subcutaneous -Tissue Removed Subcutaneous -Post Debridement (cm) - Length 8.0 -Post Debridement (cm) - Width 6.0 -Post Debridement (cm) - Depth 2.0 -Total Square (Post) (cm) 48.00 -Area of Debridement (cm) - Length 8.0 -Area of Debridement (cm) - Width 6.0 -Total Square (Area) (cm) 48.00 -Tunneling No -Undermining/Tunneling No -Circular Undermining No -Wound/Ulcer Outcome Not Healed -Ulcer Cleansing Rinsed/ Irrigated with Saline -Foul Odor after Cleansing No -Bioengineered Tissue No -Bleeding Controlled with Pressure -Offloading No -Treatment Response Procedure Tolerated Well -Debridement - Subq, 1st 20sq cm No Pain Scale: 0-10 Numeric Is Patient Pain Free? Yes WC - Nurse 3 - General Ulcer D/C NN Start: 05/15/20 10:15 Freq: Status: Active Protocol: Activity Type Activity Date Activity User E-Sign Co-Sign Detail Recorded Client Recorded Date Recorded By Document 05/15/20 11:36 DL [id number] 05/15/20 11:38 DL 05/15/20 11:36 Wound Care Nurse 3 #7 Sacral -Ulcer Cleansing Rinsed/ Irrigated with Saline -Foul Odor after Cleansing No #6 R Buttocks -Ulcer Cleansing Rinsed/ Irrigated with Saline #5 L Buttocks -Ulcer Cleansing Rinsed/ Irrigated with Saline -Foul Odor after Cleansing No Pain Scale: 0-10 Numeric Is Patient Pain Free? Yes WC - Visit Discharge Discharge Condition Stable Ambulatory Status Wheelchair Transportation Private Auto Accompanied by HH Aid Notes: Dressings applied per Radha, HH Aid/ caregiver Wound debrided: Sacral Wound Grade/Stage: Stage IV Type of Debridement: Excisional debridement Anesthesia Used: 4% Lidocaine Solution Depth: Down to and including healthy tissue, in the subcutaneous layer Percentage of wound debrided: 100 Instrument Used: 5mm curette Tissue Removed: Slough and devitalized tissue Severity: Fat Layer Exposed Amount of bleeding with debridement: Mild Bleeding Controlled with: Pressure Patient tolerated procedure well - Additional Wound Wound debrided: Left Buttock Wound Grade/Stage: Stage IV Type of Debridement: Excisional debridement Anesthesia Used: 4% Lidocaine Solution Depth: Down to and including healthy tissue, in the subcutaneous layer Percentage of wound debrided: 100 Instrument Used: 5mm curette Tissue Removed: Slough and devitalized tissue Severity: Fat Layer Exposed Amount of bleeding with debridement: Mild Bleeding Controlled with: Pressure Patient tolerated procedure: Patient tolerated procedure well - Additional Wound Wound debrided: Right Buttock Wound Grade/Stage: Stage IV Type of Debridement: Excisional debridement Anesthesia Used: 4% Lidocaine Solution Depth: Down to and including healthy tissue, in the subcutaneous layer Percentage of wound debrided: 100 Instrument Used: 5mm curette Tissue Removed: Slough and devitalized tissue Severity: Fat Layer Exposed Amount of bleeding with debridement: Mild Bleeding Controlled with: Pressure Patient tolerated procedure: Patient tolerated procedure well Assessment/Plan Active Problems (Last Updated 12/14/19 @ 15:[address] Meena Coyne DO) Sacral decubitus ulcer, stage IV (Chronic) Decubitus ulcer of right buttock, stage 4 (Chronic) Decubitus ulcer of left buttock, stage 4 (Chronic) Chronic osteomyelitis involving pelvic region and thigh (Chronic) Paraplegia (Chronic) Assessment: Chronic Stage IV sacral, left and right decubitus ulcers. Paraplegia. Chronic Osteomyelitis of pelvic region. Plan: Debridement done as documented above, procedure well-tolerated. Continue 10 minute Acetic acid soak to all ulcers then calcium alginate/collagen dressing. Change daily to twice daily depending on drainage. Continue optimal dietary and protein intake. Offloading also recommended. Now open to possible surgical closure/ graft. Referred to [facility] plastic surgery and has an appointment in June. Currently on a break from [facility]. His questions were answered and they were advised to call with any further questions or concerns. Follow up in 2 weeks. This note was generated with [employer] dictation software. It may contain incorrect words, spelling, and punctuation that were not noted in checking the note before signing. [id number]: [id number] [place] subq tissue 20 sq cm/< Add On Codes: 74953 Oxana subq tissue add-on - Additional Sq cm debrided, please refer to clinical note
== END 2020-06-11 23:59 ==
LOC: WC 10:15
PROVIDERS: Visit Provider Internal Medicine
DX: L89.324 Pressure ulcer of left buttock, stage 4 (principal); L89.314 Pressure ulcer of right buttock, stage 4; L89.154 Pressure ulcer of sacral region, stage 4; M86.69 Other chronic osteomyelitis, multiple sites; G82.20 Paraplegia, unspecified; Z79.84 Long term (current) use of oral hypoglycemic drugs; Z79.899 Other long term (current) drug therapy
CPT/HCPCS: 11042; 11045; 87070; 87077; 87186; 87205

== ENCOUNTER → 2020-05-16 12:01 | Outpatient (CLI) | payer OTHER, MEDICAID, SELFPAY ==
[2020-05-15 10:15] VITALS: BMI 21.8
--- NOTE | 2020-05-16 12:03 | RAD_ITS ---
STUDY: X-RAY - ESOPHAGUS (BARIUM SWALLOW) WITH FLUOROSCOPY REASON FOR EXAM: Male, 35 years old. DYSPHAGIA. History of esophageal fistula. TECHNIQUE: 21 view(s) of the esophagus were obtained following swallowing of barium. FLUOROSCOPY TIME (if supplied): (0:58) minutes/seconds COMPARISON: None. FINDINGS: The patient is status post screw and rosy fixation of the cervical spine. There is evidence of a fistulous communication arising from the posterior left lateral wall of the esophagus at its origin. This extends caudally. Normal visualized aortic arch and descending thoracic aorta. Normal visualized pulmonary parenchyma. Normal visualized osseous structures of the thorax. RAD/Esophagus Single Contrast IMPRESSION: Fistula arising from the posterior left side of the esophagus at its origin extending caudally at the level of the T1-T2 and T3 vertebrae. Electronically Signed: Bryant Swan MD at 13:07 EST , Service support ,
== END ==
PROVIDERS: PCP Internal Medicine; Referring Provider Otolaryngology; Visit Provider Otolaryngology
DX: K22.8 Other specified diseases of esophagus (principal)
CPT/HCPCS: 74220

== ENCOUNTER 2020-05-16 16:53 | Emergency (ER) | payer OTHER, SELFPAY ==
[2020-05-15 10:15] VITALS: BMI 21.8
[2020-05-16 16:55] VITALS: BP 96/65; PULSE 77; RESP 16; TEMP 36.2; O2SAT 95; BMI 27.8
[2020-05-16 17:55] LABS: Absolute Neutrophil Count 5.3 X10^3/uL (2.0-7.7); Basophil# 0.04 X10^3/uL; Basophil% 0.4 % (0-1); Eosinophil# 0.31 X10^3/uL; Eosinophils% 3.4 % (0-5); Hematocrit 32.7 % (40-54); Hemoglobin 10.1 g/dL (13.0-16.5); Lymphocyte % 27.6 % (19-41); Mean Corp Hgb Conc 30.9 g/dL (32-36); Mean Platelet Vol. 10.3 fl (6.2-12.0); Monocyte# 0.81 X10^3/uL; Monocyte% 8.9 % (0-10); NRBC Flagged by Analyzer 0 % (0-5); Neutrophil # 5.28 X10^3/uL (2.7-7.7); Neutrophil % 58.4 % (47-70); Platelet Count 244 K/mm3 (150-450); RBC Distribution Width CV 13.5 % (11.6-14.6); RBC Distribution Width SD 46.1 fl (35.1-43.9); Red Blood Count 3.48 M/mm3 (4.6-6.2); White Blood Count 9.1 K/mm3 (4.4-11.0)
[2020-05-16 18:07] LABS: Anion Gap 8 (5-15); BUN 35 mg/dL (7-18); BUN/Creat Ratio 33.3 RATIO (10-20); Calcium,Total 9.3 mg/dL (8.5-10.1); Chloride 105 mmol/L (98-107); Creatinine, Serum 1.05 mg/dL (0.70-1.30); EST Glomerular Filtration Rate 86 mL/min (>60); Est Glom Filt Rate - Afr Amer 104 mL/min (>60); Estimated Creatinine Clearance 105.58 ml/min; Glucose 137 mg/dL (74-106); Potassium 4.1 mmol/L (3.5-5.1); Sodium Level 139 mmol/L (136-145)
--- NOTE | 2020-05-16 18:26 | ED.DCSUM_ITS ---
- ER Visit Summary Date of Service: 05/16/20 Chief Complaint: Tracheoesophageal fistula History of Present Illness: The patient is a 35 M presenting due to infected tracheoesophageal fistula. Patient was sent in by [facility]. 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 Patient states he has had approximately 4 surgeries at [facility] with the last being approximately 1 year ago. He does not wish to go back to [facility]. He has been seen by ENT Dr. Bach. Dr. Bach performed I&D yesterday draining a large amount of pus. Wound cultures were sent. He had a barium swallow test today. He was sent to the hospital for [facility] for surgery. Physical Examination: Vitals are stable. Patient is afebrile. Alert no acute distress. HEENT exam lateral neck 2 cm open defect with no significant drainage or fluctuance. Neck is supple. Lungs are clear and equal bilaterally. Heart is regular rate and rhythm. Abdomen is soft nontender nondistended. Extremities are unremarkable. Skin is warm and dry. Remainder of exam is unremarkable. Emergency Department Course and Treatment: Patient was given clindamycin IV and fentanyl IV. Blood cultures were sent. CBC, chemistries unremarkable other than hemoglobin 10.1, glucose 137, BUN 35. Covid is pending. Wound cultures showed gram-positive cocci, gram-negative rods. Outpatient barium swallow shows fistula arising from the posterior left side of the esophagus at its origin extending caudally at the level of the T1-T2 and T3 vertebrae. Radiology discussed with hospitalist and is concerned about his fistula going into the mediastinum. Hospitalist feels patient requires transfer to tertiary care center. Discussed with Dr. Bach. Patient has been seen at [facility] before and is agreeable to transfer to [facility]. Discussed with [facility] for transfer. Disposition: Transfer to [facility] Impression: Tracheoesophageal fistula, infected This note was generated with [employer] dictation software. It may contain incorrect words, spelling, and punctuation that were not noted in review of the chart prior to signing ED Disposition - Plan for ED Patient: Referrals: Katharine Elmore, [Primary Care Provider] -
[2020-05-16] MEDS: fentaNYL 100 MCG/2 ML Ampul 50 MCG IV (18:32)
[2020-05-16 18:36] VITALS: BP 92/68; PULSE 74; RESP 16; O2SAT 98
[2020-05-16 19:30] VITALS: BP 92/68; PULSE 74; RESP 15; TEMP 36.6; O2SAT 98
--- NOTE | 2020-05-16 19:31 | ED.RN ---
#22 ga iv left & right hand intact upon d/c to [facility]. Dr. Rae aware and ok with leaving the iv's in place.
== END 2020-05-16 19:20 | disposition short-term general hospital (02) ==
LOC: ED 17:30
PROVIDERS: Emergency Provider Emergency Medicine; PCP Internal Medicine
DX: J86.0 Pyothorax with fistula (principal); K22.8 Other specified diseases of esophagus
CPT/HCPCS: 74220; 80048; 85025; 87040; 87426; 96374; 99285; J7050; A4216

== ENCOUNTER 2020-06-26 11:00 | Outpatient (RCR) | payer OTHER, SELFPAY ==
[2020-06-12 00:31] VITALS: BP 110/63; PULSE 85; RESP 18; TEMP 35.7
[2020-06-26 10:50] VITALS: BP 124/75; PULSE 80; RESP 18; TEMP 37.1; BMI 27.8
--- NOTE | 2020-06-26 14:34 | PCM.WC.PN ---
(1) Decubitus ulcer of left buttock, stage 4 Status: Chronic Code(s): L89.324 - Pressure ulcer of left buttock, stage 4 (2) Decubitus ulcer of right buttock, stage 4 Status: Chronic Code(s): L89.314 - Pressure ulcer of right buttock, stage 4 (3) Sacral decubitus ulcer, stage IV Status: Chronic Code(s): L89.154 - Pressure ulcer of sacral region, stage 4 (4) Chronic osteomyelitis involving pelvic region and thigh Status: Chronic Code(s): M86.659 - Other chronic osteomyelitis, unspecified thigh (5) Paraplegia Status: Chronic Code(s): G82.20 - Paraplegia, unspecified Type of Wound Date of Service: 06/26/20 Chief Complaint: Non healing, chronic decubitus pressure ulcers, stage IV, with osteomyelitis - thigh, buttock, sacrum. History of Wound: Mr. Joyce is a 33yo well known to the wound center but was last seen here over a month ago. Initial sacral ulcer was said to have started in November and Buttock ulcers were noted subsequently. He has had an extensive hospital stay over the last couple of months following a work related injury. Both during his hops[facility] and [facility] stays, he had wound care ranging from surgical debridement, wound vac and collagen use. He was scheduled to be restarted on his wound Vac prior to his discharge from the [place]. He reports significant drainage from the wounds. Also of note is a history of osteomyelitis for which he was on a 6 week IV antibiotic. His however states they were informed that he had developed chronic extensive pelvic area osteomyelitis. He feels well otherwise at this time and denies chills, fever,nausea, vomitting or change in bowel habit. 02/22/2019: Above, he was last seen here over a month ago. Had an extensive hospital stay [facility] due to complications from prior neck surgery. They state that his ulcers have been stable. Been doing the acetic acid soak for 10 minutes and then calcium alginate/collagen dressings. Denies any concerns at this time. Progress of Wound: Stable Ulcers. Missed his appointment for some weeks due to hospital admission for an infected hardware. Currently on IV Unasyn and Vancomycin. No new concerns at this time. - Physical Exam Vital Signs Temp Pulse Resp BP 98.8 F 80 18 124/75 H 04/15/21 10:50 06/26/20 10:50 06/26/20 10:50 06/26/20 10:50 General: Alert, Oriented x3, Cooperative, No apparent distress HEENT: Atraumatic, Normocephalic Oral: Moist Mucosa Neck: Supple Lungs: Normal air movement Extremities: No cyanosis Skin: Ulcer/ Wound Wound Measurements and Assessment WC - Nurse 1 - General Ulcer Measurement Start: 06/26/20 10:50 Freq: Status: Active Protocol: Activity Type Activity Date Activity User E-Sign Co-Sign Detail Recorded Client Recorded Date Recorded By Document 06/26/20 10:50 DL [id number] 06/26/20 11:10 DL 06/26/20 10:50 Wound Center Nurse 1 [Ulcer Assessment] #10 Sacral -Current Size (cm) - Length 4 -Current Size (cm) - Width 11.7 -Current Size (cm) - Depth 0.6 -Total Square Cm 46.8 -Photo Taken Yes -Undermining/Tunneling Starts (O' 11 clock) -Undermining/Tunneling Ends (O'clock) 12 -Maximum Distance (cm) 7 -Undermining/Tunneling Starts #2 (O' 1 clock) -Undermining/Tunneling Ends #2 (O' 2 clock) -Maximum Distance #2 (cm) 2 -Exudate Amt Medium -Exudate Type Serosanguineous -Wound Margin Distinct, Outline Attached -Granulation Amt Large (67-100%) -Granulation Quality Clemmons,Red -Necrosis Amt Small (1-33%) -Necrotic Tissue Type Adherent Slough -Structure Exposed N/A -Texture (Sheyla-wound Skin Appearance) Scarring -Moisture (Sheyla-wound Skin Appearance No Abnormality ) -Color (Sheyla-wound Skin Appearance) No Abnormality -Temperature (Sheyla-wound Skin No Abnormality Appearance) (Pt Warm) -Tenderness on Palpation (Sheyla-wound No Skin Appearance) -Ulcer Cleansing Wound Cleanser -Foul Odor after Cleansing No #9 R Buttocks -Current Size (cm) - Length 9 -Current Size (cm) - Width 3 -Current Size (cm) - Depth 0.5 -Total Square Cm 27 -Photo Taken Yes -Exudate Amt Medium -Exudate Type Serosanguineous -Wound Margin Thickened & Rolled Under -Granulation Amt Large (67-100%) -Granulation Quality Clemmons,Red -Necrosis Amt Small (1-33%) -Necrotic Tissue Type Adherent Slough -Structure Exposed N/A -Texture (Sheyla-wound Skin Appearance) Scarring -Moisture (Sheyla-wound Skin Appearance No Abnormality ) -Color (Sheyla-wound Skin Appearance) No Abnormality -Temperature (Sheyla-wound Skin No Abnormality Appearance) (Pt Warm) -Tenderness on Palpation (Sheyla-wound No Skin Appearance) -Ulcer Cleansing Wound Cleanser #8 L Buttucks -Current Size (cm) - Length 8 -Current Size (cm) - Width 4 -Current Size (cm) - Depth 1.8 -Total Square Cm 32 -Photo Taken Yes -Undermining/Tunneling Starts (O' 12 clock) -Undermining/Tunneling Ends (O'clock) 6 -Maximum Distance (cm) 2 -Exudate Amt Medium -Exudate Type Serosanguineous -Wound Margin Thickened & Rolled Under -Granulation Amt Large (67-100%) -Granulation Quality Clemmons,Red -Necrosis Amt Small (1-33%) -Necrotic Tissue Type Adherent Slough -Structure Exposed N/A -Texture (Sheyla-wound Skin Appearance) Scarring -Moisture (Sheyla-wound Skin Appearance No Abnormality ) -Color (Sheyla-wound Skin Appearance) No Abnormality -Temperature (Sheyla-wound Skin No Abnormality Appearance) (Pt Warm) -Tenderness on Palpation (Sheyla-wound No Skin Appearance) -Ulcer Cleansing Wound Cleanser -Foul Odor after Cleansing No WC - Nurse 2 - General Ulcer CM Notes Start: 06/26/20 10:50 Freq: Status: Active Protocol: Activity Type Activity Date Activity User E-Sign Co-Sign Detail Recorded Client Recorded Date Recorded By Document 06/26/20 11:24 MW [id number] 06/26/20 11:35 MW 06/26/20 11:24 Wound Center Nurse 2 [Procedure/Treatment] #10 Sacral -Time 11:26 -Correct Patient Yes -Correct Side, Site, Position Yes -Correct Procedure Yes -Procedure Performed Yes -Type of Procedure Debridement -Clinical Debridement Subcutaneous -Tissue Removed Subcutaneous -Post Debridement (cm) - Length 3.8 -Post Debridement (cm) - Width 12.5 -Post Debridement (cm) - Depth 1.2 -Total Square (Post) (cm) 47.50 -Area of Debridement (cm) - Length 3.8 -Area of Debridement (cm) - Width 12.5 -Total Square (Area) (cm) 47.50 -Tunneling No -Undermining/Tunneling No -Circular Undermining No -Wound/Ulcer Outcome Not Healed -Ulcer Cleansing Rinsed/ Irrigated with Saline -Foul Odor after Cleansing No -Bioengineered Tissue No -Bleeding Controlled with Pressure -Offloading No -Treatment Response Procedure Tolerated Well -Debridement - Subq, 1st 20sq cm Yes -Debridement, SubQ, ea addt'l 20sq cm 4 or part thereof #9 R Buttocks -Time 11:26 -Correct Patient Yes -Correct Side, Site, Position Yes -Correct Procedure Yes -Procedure Performed Yes -Type of Procedure Debridement -Clinical Debridement Subcutaneous -Tissue Removed Subcutaneous -Post Debridement (cm) - Length 3.5 -Post Debridement (cm) - Width 3.3 -Post Debridement (cm) - Depth 1.6 -Total Square (Post) (cm) 11.55 -Area of Debridement (cm) - Length 3.5 -Area of Debridement (cm) - Width 3.3 -Total Square (Area) (cm) 11.55 -Tunneling No -Undermining/Tunneling No -Circular Undermining No -Wound/Ulcer Outcome Not Healed -Ulcer Cleansing Rinsed/ Irrigated with Saline -Foul Odor after Cleansing No -Bioengineered Tissue No -Bleeding Controlled with Pressure -Offloading No -Treatment Response Procedure Tolerated Well -Debridement - Subq, 1st 20sq cm No #8 L Buttucks -Time 11:26 -Correct Patient Yes -Correct Side, Site, Position Yes -Correct Procedure Yes -Procedure Performed Yes -Type of Procedure Debridement -Clinical Debridement Subcutaneous -Tissue Removed Subcutaneous -Post Debridement (cm) - Length 7.5 -Post Debridement (cm) - Width 5.0 -Post Debridement (cm) - Depth 1.7 -Total Square (Post) (cm) 37.50 -Area of Debridement (cm) - Length 7.5 -Area of Debridement (cm) - Width 5.0 -Total Square (Area) (cm) 37.50 -Tunneling No -Undermining/Tunneling No -Circular Undermining No -Wound/Ulcer Outcome Not Healed -Ulcer Cleansing Rinsed/ Irrigated with Saline -Foul Odor after Cleansing No -Bioengineered Tissue No -Bleeding Controlled with Pressure -Offloading No -Treatment Response Procedure Tolerated Well -Debridement - Subq, 1st 20sq cm No [See Physician Procedure note for Specifics] Pain Scale: 0-10 Numeric [Pain] -Is Patient Pain Free? Yes - Nurse 3 - General Ulcer D/C NN Start: 06/26/20 10:50 Freq: Status: Active Protocol: Activity Type Activity Date Activity User E-Sign Co-Sign Detail Recorded Client Recorded Date Recorded By Document 06/26/20 11:40 DL [id number] 06/26/20 11:45 DL 06/26/20 11:40 Wound Care Nurse 3 [Wound Dressing] #10 Sacral -Ulcer Cleansing acetic acid -Foul Odor after Cleansing No -Other Dressing calcium Alginate/ Melpilex #9 R Buttocks -Ulcer Cleansing acetic acid -Foul Odor after Cleansing No -Other Dressing calcium Alginate/ Mepilex #8 L Buttucks -Ulcer Cleansing acetic acid -Foul Odor after Cleansing No -Other Dressing calcim alginate /mepilex [Post Procedure Tolerated] -Treatment Response Procedure Tolerated Well Pain Scale: 0-10 Numeric [Pain] -Is Patient Pain Free? Yes - Visit Discharge [Visit Discharge Information] -Discharge Condition Stable -Ambulatory Status Wheelchair -Transportation Private Auto -Notes: Dressing applied per caregiver today . [Facility Notification] -Facility Type Home Health -Orders Sent Yes Musculoskeletal: No Muscle Wasting Neurological: Cranial nerves II-XII grossly intact Psych/Mental Status: Normal Affect Debridement Note Post-Debridement Measurements/Treatment - Nurse 2 - General Ulcer CM Notes Start: 06/26/20 10:50 Freq: Status: Active Protocol: Activity Type Activity Date Activity User E-Sign Co-Sign Detail Recorded Client Recorded Date Recorded By Document 06/26/20 11:24 MW [id number] 06/26/20 11:35 MW 06/26/20 11:24 Wound Center Nurse 2 #10 Sacral -Time 11:26 -Correct Patient Yes -Correct Side, Site, Position Yes -Correct Procedure Yes -Procedure Performed Yes -Type of Procedure Debridement -Clinical Debridement Subcutaneous -Tissue Removed Subcutaneous -Post Debridement (cm) - Length 3.8 -Post Debridement (cm) - Width 12.5 -Post Debridement (cm) - Depth 1.2 -Total Square (Post) (cm) 47.50 -Area of Debridement (cm) - Length 3.8 -Area of Debridement (cm) - Width 12.5 -Total Square (Area) (cm) 47.50 -Tunneling No -Undermining/Tunneling No -Circular Undermining No -Wound/Ulcer Outcome Not Healed -Ulcer Cleansing Rinsed/ Irrigated with Saline -Foul Odor after Cleansing No -Bioengineered Tissue No -Bleeding Controlled with Pressure -Offloading No -Treatment Response Procedure Tolerated Well -Debridement - Subq, 1st 20sq cm Yes -Debridement, SubQ, ea addt'l 20sq cm 4 or part thereof #9 R Buttocks -Time 11:26 -Correct Patient Yes -Correct Side, Site, Position Yes -Correct Procedure Yes -Procedure Performed Yes -Type of Procedure Debridement -Clinical Debridement Subcutaneous -Tissue Removed Subcutaneous -Post Debridement (cm) - Length 3.5 -Post Debridement (cm) - Width 3.3 -Post Debridement (cm) - Depth 1.6 -Total Square (Post) (cm) 11.55 -Area of Debridement (cm) - Length 3.5 -Area of Debridement (cm) - Width 3.3 -Total Square (Area) (cm) 11.55 -Tunneling No -Undermining/Tunneling No -Circular Undermining No -Wound/Ulcer Outcome Not Healed -Ulcer Cleansing Rinsed/ Irrigated with Saline -Foul Odor after Cleansing No -Bioengineered Tissue No -Bleeding Controlled with Pressure -Offloading No -Treatment Response Procedure Tolerated Well -Debridement - Subq, 1st 20sq cm No #8 L Buttucks -Time 11:26 -Correct Patient Yes -Correct Side, Site, Position Yes -Correct Procedure Yes -Procedure Performed Yes -Type of Procedure Debridement -Clinical Debridement Subcutaneous -Tissue Removed Subcutaneous -Post Debridement (cm) - Length 7.5 -Post Debridement (cm) - Width 5.0 -Post Debridement (cm) - Depth 1.7 -Total Square (Post) (cm) 37.50 -Area of Debridement (cm) - Length 7.5 -Area of Debridement (cm) - Width 5.0 -Total Square (Area) (cm) 37.50 -Tunneling No -Undermining/Tunneling No -Circular Undermining No -Wound/Ulcer Outcome Not Healed -Ulcer Cleansing Rinsed/ Irrigated with Saline -Foul Odor after Cleansing No -Bioengineered Tissue No -Bleeding Controlled with Pressure -Offloading No -Treatment Response Procedure Tolerated Well -Debridement - Subq, 1st 20sq cm No Pain Scale: 0-10 Numeric Is Patient Pain Free? Yes - Nurse 3 - General Ulcer D/C NN Start: 06/26/20 10:50 Freq: Status: Active Protocol: Activity Type Activity Date Activity User E-Sign Co-Sign Detail Recorded Client Recorded Date Recorded By Document 06/26/20 11:40 DL [id number] 06/26/20 11:45 DL 06/26/20 11:40 Wound Care Nurse 3 #10 Sacral -Ulcer Cleansing acetic acid -Foul Odor after Cleansing No -Other Dressing calcium Alginate/ Melpilex #9 R Buttocks -Ulcer Cleansing acetic acid -Foul Odor after Cleansing No -Other Dressing calcium Alginate/ Mepilex #8 L Buttucks -Ulcer Cleansing acetic acid -Foul Odor after Cleansing No -Other Dressing calcim alginate /mepilex Treatment Response Procedure Tolerated Well Pain Scale: 0-10 Numeric Is Patient Pain Free? Yes WC - Visit Discharge Discharge Condition Stable Ambulatory Status Wheelchair Transportation Private Auto Notes: Dressing applied per caregiver today . Facility Type Home Health Orders Sent Yes Wound debrided: Sacral Type of Debridement: Excisional debridement Anesthesia Used: 4% Lidocaine Solution Depth: Down to and including healthy tissue, in the subcutaneous layer Percentage of wound debrided: 100 Instrument Used: 5mm curette Tissue Removed: Slough and devitalized tissue Severity: Fat Layer Exposed Amount of bleeding with debridement: Mild Bleeding Controlled with: Pressure Patient tolerated procedure well - Additional Wound Wound debrided: Left Buttock Type of Debridement: Excisional debridement Anesthesia Used: 4% Lidocaine Solution Depth: Down to and including healthy tissue, in the subcutaneous layer Percentage of wound debrided: 100 Instrument Used: 5mm curette Tissue Removed: Slough and devitalized tissue Severity: Fat Layer Exposed Amount of bleeding with debridement: Mild Bleeding Controlled with: Pressure Patient tolerated procedure: Patient tolerated procedure well - Additional Wound Wound debrided: Right Buttock Type of Debridement: Excisional debridement Anesthesia Used: 4% Lidocaine Solution Depth: Down to and including healthy tissue, in the subcutaneous layer Percentage of wound debrided: 100 Instrument Used: 5mm curette Tissue Removed: Slough and devitalized tissue Severity: Fat Layer Exposed Amount of bleeding with debridement: Mild Bleeding Controlled with: Pressure Patient tolerated procedure: Patient tolerated procedure well Assessment/Plan Assessment: Chronic Stage IV sacral, left and right decubitus ulcers. Paraplegia. Chronic Osteomyelitis of pelvic region. Plan: Debridement done as documented above, procedure well-tolerated. Continue 10 minute Acetic acid soak to all ulcers then calcium alginate/collagen dressing. Change daily to twice daily depending on drainage. Continue optimal dietary and protein intake. Offloading also recommended. Now open to possible surgical closure/ graft. Referred to [facility] plastic surgery, Had an appointment in June however this had to be moved due to his hospital admission. Next appointment is in July. Currently on a break from [facility]. His questions were answered and they were advised to call with any further questions or concerns. Follow up in 2 weeks Per patient preference. This note was generated with [employer] dictation software. It may contain incorrect words, spelling, and punctuation that were not noted in checking the note before signing. [id number]: [id number] [place]ana subq tissue 20 sq cm/< Add On Codes: 88649 Oxana subq tissue add-on - Additional square centimeter x4 debrided, please refer to clinical note
== END 2020-07-11 23:59 ==
LOC: WC 11:00
PROVIDERS: PCP Internal Medicine; Visit Provider Internal Medicine
DX: L89.324 Pressure ulcer of left buttock, stage 4 (principal); L89.314 Pressure ulcer of right buttock, stage 4; L89.154 Pressure ulcer of sacral region, stage 4; G82.20 Paraplegia, unspecified; M86.69 Other chronic osteomyelitis, multiple sites; Z79.899 Other long term (current) drug therapy
CPT/HCPCS: 11042; 11045

== ENCOUNTER 2020-07-31 11:30 | Outpatient (RCR) | payer OTHER, SELFPAY ==
[2020-07-12 00:32] VITALS: BP 124/75; PULSE 80; RESP 18; TEMP 37.1
[2020-07-31 10:54] VITALS: BP 102/63; PULSE 81; RESP 18; TEMP 37; BMI 27.8
--- NOTE | 2020-07-31 12:45 | PCM.WC.PN ---
History of Present Illness Date of Service: 07/31/20 Chief Complaint: Non healing, chronic decubitus pressure ulcers, stage IV, with osteomyelitis - thigh, buttock, sacrum. History of Wound: Mr. Joyce is a 33yo well known to the wound center but was last seen here over a month ago. Initial sacral ulcer was said to have started in November and Buttock ulcers were noted subsequently. He has had an extensive hospital stay over the last couple of months following a work related injury. Both during his hopsital and residential stays, he had wound care ranging from surgical debridement, wound vac and collagen use. He was scheduled to be restarted on his wound Vac prior to his discharge from the [place]. He reports significant drainage from the wounds. Also of note is a history of osteomyelitis for which he was on a 6 week IV antibiotic. His however states they were informed that he had developed chronic extensive pelvic area osteomyelitis. He feels well otherwise at this time and denies chills, fever,nausea, vomitting or change in bowel habit. 02/22/2019: Above, he was last seen here over a month ago. Had an extensive hospital stay [facility] due to complications from prior neck surgery. They state that his ulcers have been stable. Been doing the acetic acid soak for 10 minutes and then calcium alginate/collagen dressings. Denies any concerns at this time. Subjective Subjective No new concerns at this time. Has not been seen here in about a month due to hospital visits and appointment. Denies any significant changes. Was seen by plastic surgery at [facility] and plan was to continue current management. Objective Data Objective Data Vital Signs: Vital Signs Temp Pulse Resp BP 98.6 F 81 18 102/63 07/31/20 10:54 07/31/20 10:54 07/31/20 10:54 07/31/20 10:54 Body Mass Index (BMI) 27.8 Charges/Coding Procedures Integumentary 111xxx-113xx: 97915 Oxana subq tissue 20 sq cm/< Add On Codes: 49231 Oxana subq tissue add-on (X4. Additional square centimeter debrided, please refer to clinical note.) Physical Exam Const alert and oriented x3 General Appearance: cooperative and comfortable HEENT normocephalic and hearing grossly normal bilaterally Head and Scalp: normal to inspection and normocephalic Neck full ROM and supple Resp normal respiratory effort Effort and Inspection: able to speak in complete sentences Skin Wounds: wounds noted Debridement Note Debridement Note Post-Debridement Measurements and Additional Note: Post-Debridement Measurements/Treatment - Nurse 1 - General Ulcer Assessment Start: 07/31/20 10:54 Freq: Status: Active Protocol: JUDITH Activity Type Activity Date Activity User E-Sign Co-Sign Detail Recorded Client Recorded Date Recorded By Document 07/31/20 10:54 PL Desktop 07/31/20 11:09 PL 07/31/20 10:54 - Today's Visit Information Type of service Follow-up Visit (Physician/[employer] ) Arrival Mode Wheelchair Transfer Assistance Manual Patient Identification Verified (Name & Yes ) Patient Requires Transmission-Based No Precautions Safety Precautions NA Height and Weight Body Mass Index (BMI) 27.8 BMI Classification Overweight Vital Signs Temperature (97.8 F-99.1 F) 98.6 F Temperature Source Temporal Pulse Rate (60-100) 81 Respiratory Rate (12-18) 18 Blood Pressure (90/60-120/80) 102/63 Blood Pressure Mean (mm Hg) 76 History Since Last Visit- (Skip if this is Patient's initial visit) Have you changed medications since your No last visit? Any new allergies or adverse reactions No Had a fall/change in ADL's that may No increase risk of falls Signs or symptoms of abuse and/or No neglect since last visit Have you been in the hospital since your No last visit? Has dressing in place as prescribed Yes Has compression in place as prescribed N/A Has offloadiing in place as prescribed N/A Experienced any changes in pain level or No management Pain Scale: 0-10 Numeric Is Patient Pain Free? Yes - Nurse 1 - General Ulcer Measurement Start: 07/31/20 10:54 Freq: Status: Active Protocol: Activity Type Activity Date Activity User E-Sign Co-Sign Detail Recorded Client Recorded Date Recorded By Document 07/31/20 10:54 PL Desktop 07/31/20 11:09 PL 07/31/20 10:54 Wound Center Nurse 1 #10 Sacral -Combined with other wound No -Current Size (cm) - Length 5.0 -Current Size (cm) - Width 11.0 -Current Size (cm) - Depth 0.7 -Total Square Cm 55.00 -Photo Taken No -Epithelialization Large 67-100% -Tunneling Yes -Tunneling Position (O'clock) 1 -Tunneling Distance (cm) 1.0 -Tunneling Position #2 (O'clock) 11 -Tunneling Distance #2 (cm) 4.5 -Undermining/Tunneling No -Circular Undermining No -Exudate Amt Large -Exudate Type Serosanguineous -Granulation Amt Large (67-100%) -Granulation Quality [place],Red -Slough/Fibrin Yes -Necrosis Amt Small (1-33%) -Necrotic Tissue Type Adherent Slough -Temperature (Sheyla-wound Skin No Abnormality Appearance) (Pt Warm) -Ulcer Cleansing Rinsed/ Irrigated with Saline -Foul Odor after Cleansing No #9 R Buttocks -Combined with other wound No -Current Size (cm) - Length 7 -Current Size (cm) - Width 3.5 -Current Size (cm) - Depth 0.8 -Total Square Cm 24.5 -Photo Taken No -Epithelialization None Present -Tunneling No -Undermining/Tunneling No -Circular Undermining No -Exudate Amt Large -Exudate Type Serosanguineous -Granulation Amt Medium (34-66%) -Granulation Quality [place] -Slough/Fibrin Yes -Necrosis Amt Medium (34-66%) -Necrotic Tissue Type Adherent Slough -Texture (Sheyla-wound Skin Appearance) No Abnormality -Moisture (Sheyla-wound Skin Appearance) No Abnormality -Color (Sheyla-wound Skin Appearance) No Abnormality -Temperature (Sheyla-wound Skin No Abnormality Appearance) (Pt Warm) -Ulcer Cleansing Rinsed/ Irrigated with Saline -Foul Odor after Cleansing No #8 L Buttucks -Combined with other wound No -Current Size (cm) - Length 4.0 -Current Size (cm) - Width 4.0 -Current Size (cm) - Depth 2.0 -Total Square Cm 16.00 -Photo Taken No -Epithelialization None Present -Tunneling No -Undermining/Tunneling No -Circular Undermining No -Exudate Amt Large -Exudate Type Serosanguineous -Granulation Amt Medium (34-66%) -Granulation Quality [place] -Slough/Fibrin Yes -Necrosis Amt Medium (34-66%) -Necrotic Tissue Type Adherent Slough -Texture (Sheyla-wound Skin Appearance) No Abnormality -Moisture (Sheyla-wound Skin Appearance) No Abnormality -Color (Sheyla-wound Skin Appearance) No Abnormality -Temperature (Sheyla-wound Skin No Abnormality Appearance) (Pt Warm) -Ulcer Cleansing Rinsed/ Irrigated with Saline -Foul Odor after Cleansing No WC - Nurse 2 - General Ulcer CM Notes Start: 07/31/20 10:54 Freq: Status: Active Protocol: Activity Type Activity Date Activity User E-Sign Co-Sign Detail Recorded Client Recorded Date Recorded By Document 07/31/20 11:34 MW Desktop 07/31/20 11:40 MW 07/31/20 11:34 Wound Center Nurse 2 #12 left sacral -Time 11:35 -Correct Patient Yes -Correct Side, Site, Position Yes -Correct Procedure Yes -Procedure Performed Yes -Type of Procedure Debridement -Clinical Debridement Subcutaneous -Tissue Removed Subcutaneous -Post Debridement (cm) - Length 4.0 -Post Debridement (cm) - Width 3.0 -Post Debridement (cm) - Depth 1.0 -Total Square (Post) (cm) 12.00 -Area of Debridement (cm) - Length 4.0 -Area of Debridement (cm) - Width 3.0 -Total Square (Area) (cm) 12.00 -Tunneling No -Undermining/Tunneling No -Circular Undermining No -Wound/Ulcer Outcome Not Healed -Ulcer Cleansing Rinsed/ Irrigated with Saline -Foul Odor after Cleansing No -Bioengineered Tissue No -Bleeding Controlled with Pressure -Offloading No -Treatment Response Procedure Tolerated Well -Debridement - Subq, 1st 20sq cm No #11 right sacral -Time 11:35 -Correct Patient Yes -Correct Side, Site, Position Yes -Correct Procedure Yes -Procedure Performed Yes -Type of Procedure Debridement -Clinical Debridement Subcutaneous -Tissue Removed Subcutaneous -Post Debridement (cm) - Length 3.0 -Post Debridement (cm) - Width 1.5 -Post Debridement (cm) - Depth 0.7 -Total Square (Post) (cm) 4.50 -Area of Debridement (cm) - Length 3.0 -Area of Debridement (cm) - Width 1.5 -Total Square (Area) (cm) 4.50 -Tunneling No -Undermining/Tunneling No -Circular Undermining No -Wound/Ulcer Outcome Not Healed -Ulcer Cleansing Rinsed/ Irrigated with Saline -Foul Odor after Cleansing No -Bioengineered Tissue No -Bleeding Controlled with Pressure -Offloading No -Treatment Response Procedure Tolerated Well -Debridement - Subq, 1st 20sq cm No #9 R Buttocks -Time 11:37 -Correct Patient Yes -Correct Side, Site, Position Yes -Correct Procedure Yes -Procedure Performed Yes -Type of Procedure Debridement -Clinical Debridement Subcutaneous -Tissue Removed Subcutaneous -Post Debridement (cm) - Length 8.5 -Post Debridement (cm) - Width 3.4 -Post Debridement (cm) - Depth 1.6 -Total Square (Post) (cm) 28.90 -Area of Debridement (cm) - Length 8.5 -Area of Debridement (cm) - Width 3.4 -Total Square (Area) (cm) 28.90 -Tunneling No -Undermining/Tunneling No -Circular Undermining No -Wound/Ulcer Outcome Not Healed -Ulcer Cleansing Rinsed/ Irrigated with Saline -Foul Odor after Cleansing No -Bioengineered Tissue No -Bleeding Controlled with Pressure -Offloading No -Treatment Response Procedure Tolerated Well -Debridement - Subq, 1st 20sq cm Yes -Debridement, SubQ, ea addt'l 20sq cm 4 or part thereof #8 L Buttucks -Time 11:38 -Correct Patient Yes -Correct Side, Site, Position Yes -Correct Procedure Yes -Procedure Performed Yes -Type of Procedure Debridement -Clinical Debridement Subcutaneous -Tissue Removed Subcutaneous -Post Debridement (cm) - Length 7.8 -Post Debridement (cm) - Width 4.5 -Post Debridement (cm) - Depth 1.8 -Total Square (Post) (cm) 35.10 -Area of Debridement (cm) - Length 7.8 -Area of Debridement (cm) - Width 4.5 -Total Square (Area) (cm) 35.10 -Tunneling No -Undermining/Tunneling No -Circular Undermining No -Wound/Ulcer Outcome Not Healed -Ulcer Cleansing Rinsed/ Irrigated with Saline -Foul Odor after Cleansing No -Bioengineered Tissue No -Bleeding Controlled with Pressure -Offloading No -Treatment Response Procedure Tolerated Well -Debridement - Subq, 1st 20sq cm No Pain Scale: 0-10 Numeric Is Patient Pain Free? Yes Wound debrided: Left sacral ulcer Type of Debridement: Excisional debridement Anesthesia Used: 4% Lidocaine Solution Depth: Down to and including healthy tissue and in the subcutaneous layer Percentage of wound debrided: 100 Instrument Used: 5mm curette Tissue Removed: Slough and devitalized tissue Severity: Fat Layer Exposed Amount of bleeding with debridement: Mild Bleeding Controlled with: Pressure Patient tolerated procedure: Patient tolerated procedure well Additional Wound Wound debrided: Right sacral ulcer Type of Debridement: Excisional debridement Anesthesia Used: 4% Lidocaine Solution Depth: Down to and including healthy tissue Percentage of wound debrided: 100 Instrument Used: 5mm curette Tissue Removed: Slough and devitalized tissue Severity: Fat Layer Exposed Amount of bleeding with debridement: Mild Bleeding Controlled with: Pressure Patient tolerated procedure: Patient tolerated procedure well Additional Wound Wound debrided: Left buttock Type of Debridement: Excisional debridement Anesthesia Used: 4% Lidocaine Solution Depth: Down to and including healthy tissue and in the subcutaneous layer Percentage of wound debrided: 100 Instrument Used: 5mm curette Tissue Removed: Slough and devitalized tissue Severity: Fat Layer Exposed Amount of bleeding with debridement: Mild Bleeding Controlled with: Pressure Patient tolerated procedure: Patient tolerated procedure well Additional Wound Wound debrided: Right buttock Type of Debridement: Excisional debridement Anesthesia Used: 4% Lidocaine Solution Depth: Down to and including healthy tissue and in the subcutaneous layer Percentage of wound debrided: 100 Instrument Used: 5mm curette Tissue Removed: Slough and devitalized tissue Severity: Fat Layer Exposed Amount of bleeding with debridement: Mild Bleeding Controlled with: Pressure Patient tolerated procedure: Patient tolerated procedure well Assessment/Plan Assessment/Plan (1) Sacral decubitus ulcer, stage IV: CODE(S): Code(s): L89.154 - Pressure ulcer of sacral region, stage 4 (2) Decubitus ulcer of right buttock, stage 4: CODE(S): Code(s): L89.314 - Pressure ulcer of right buttock, stage 4 (3) Decubitus ulcer of left buttock, stage 4: CODE(S): Code(s): L89.324 - Pressure ulcer of left buttock, stage 4 (4) Chronic osteomyelitis involving pelvic region and thigh: CODE(S): Code(s): M86.659 - Other chronic osteomyelitis, unspecified thigh (5) Paraplegia: CODE(S): Code(s): G82.20 - Paraplegia, unspecified PLAN: Debridement done as documented above, procedure well-tolerated. Continue 10 minute Acetic acid soak to all ulcers then calcium alginate/collagen dressing. Change daily to twice daily depending on drainage. Continue optimal dietary and protein intake. Offloading also recommended. Now open to possible surgical closure/ graft. Was seen by plastic surgery however plan is to continue current wound care. Patient not open to a colostomy. Currently on a break from [employer]. His questions were answered and they were advised to call with any further questions or concerns. Follow up in 2 weeks Per patient preference. This note was generated with [employer] software. It may contain incorrect words, spelling, and punctuation that were not noted in checking the note before signing. This note was generated with [employer] software. It may contain incorrect words, spelling, and punctuation that were not noted in checking the note before signing.
== END 2020-08-11 23:59 ==
LOC: WC 11:30
PROVIDERS: PCP Internal Medicine; Visit Provider Internal Medicine
DX: L89.154 Pressure ulcer of sacral region, stage 4 (principal); L89.314 Pressure ulcer of right buttock, stage 4; L89.324 Pressure ulcer of left buttock, stage 4; M86.69 Other chronic osteomyelitis, multiple sites; G82.20 Paraplegia, unspecified; Z79.899 Other long term (current) drug therapy
CPT/HCPCS: 11042; 11045; 99213; G0463

== ENCOUNTER 2020-08-28 10:30 | Outpatient (RCR) | payer OTHER, SELFPAY ==
[2020-08-12 00:21] VITALS: BP 102/63; PULSE 81; RESP 18; TEMP 37
[2020-08-14 11:13] VITALS: BP 109/65; PULSE 74; RESP 18; TEMP 36.4; BMI 27.8
--- NOTE | 2020-08-14 13:36 | PN.PCM_ITS ---
History of Present Illness Date of Service: 08/14/20 Chief Complaint: Non healing, chronic decubitus pressure ulcers, stage IV, with osteomyelitis - thigh, buttock, sacrum. History of Wound: Mr. Joyce is a 33yo well known to the wound center but was last seen here over a month ago. Initial sacral ulcer was said to have started in November and Buttock ulcers were noted subsequently. He has had an extensive hospital stay over the last couple of months following a work related injury. Both during his hopsital and intermediate stays, he had wound care ranging from surgical debridement, wound vac and collagen use. He was scheduled to be restarted on his wound Vac prior to [facility] [place]. He reports significant drainage from the wounds. Also of note is a history of osteomyelitis for which he was on a 6 week IV antibiotic. His however states they were informed that he had developed chronic extensive pelvic area osteomyelitis. He feels well otherwise at this time and denies chills, fever,nausea, vomitting or change in bowel habit. 02/22/2019: Above, he was last seen here over a month ago. Had an extensive hospital stay [facility] due to complications from prior neck surgery. They state that his ulcers have been stable. Been doing the acetic a kelly soak for 10 minutes and then calcium alginate/collagen dressings. Denies any concerns at this time. Subjective Subjective No new concerns at this time. Wound is improving. Now open to wound VAC. Objective Data Objective Data Vital Signs: Vital Signs Temp Pulse Resp BP 97.6 F L 74 18 109/65 08/14/20 11:13 08/14/20 11:13 08/14/20 11:13 08/14/20 11:13 Body Mass Index (BMI) 27.8 Charges/Coding Procedures Integumentary 111xxx-113xx: 47062 Oxana subq tissue 20 sq cm/< Add On Codes: 84816 Oxana subq tissue add-on (X4.) Physical Exam Const alert and oriented x3 General Appearance: cooperative and comfortable HEENT normocephalic and hearing grossly normal bilaterally Head and Scalp: normal to inspection and normocephalic Neck full ROM and supple Resp normal respiratory effort Effort and Inspection: able to speak in complete sentences Skin Wounds: wounds noted Debridement Note Debridement Note Post-Debridement Measurements and Additional Note: Post-Debridement Measurements/Treatment WC - Nurse 1 - General Ulcer Assessment Start: 08/14/20 11:13 Freq: Status: Active Protocol: JUDITH Activity Type Activity Date Activity User E-Sign Co-Sign Detail Recorded Client Recorded Date Recorded By Document 08/14/20 11:13 PETROS [id number] 08/14/20 11:18 08/14/20 11:13 - Today's Visit Information Type of service Follow-up Visit (Physician/LUSTERER ) Arrival Mode Wheelchair Transfer Assistance Manual Patient Identification Verified (Name & Yes ) Patient Requires Transmission-Based No Precautions Safety Precautions NA Height and Weight Body Mass Index (BMI) 27.8 BMI Classification Overweight Vital Signs Temperature (97.8 F-99.1 F) 97.6 F L Temperature Source Temporal Pulse Rate (60-100) 74 Respiratory Rate (12-18) 18 Blood Pressure (90/60-120/80) 109/65 Blood Pressure Mean (mm Hg) 79 History Since Last Visit- (Skip if this is Patient's initial visit) Have you changed medications since your No last visit? Any new allergies or adverse reactions No Had a fall/change in ADL's that may No increase risk of falls Signs or symptoms of abuse and/or No neglect since last visit Have you been in the hospital since your No last visit? Has dressing in place as prescribed Yes Has compression in place as prescribed N/A Has offloadiing in place as prescribed N/A Pain Scale: 0-10 Numeric Is Patient Pain Free? Yes - Nurse 1 - General Ulcer Measurement Start: 08/14/20 11:13 Freq: Status: Active Protocol: Activity Type Activity Date Activity User E-Sign Co-Sign Detail Recorded Client Recorded Date Recorded By Document 08/14/20 11:13 [email or web address] [id number] 08/14/20 11:18 08/14/20 11:13 Wound Center Nurse 1 #12 left sacral -Combined with other wound No -Current Size (cm) - Length 4 -Current Size (cm) - Width 0.5 -Current Size (cm) - Depth 0.3 -Total Square Cm 2.0 -Photo Taken No -Epithelialization None Present -Tunneling Yes -Tunneling Position (O'clock) 12 -Tunneling Distance (cm) 5 -Undermining/Tunneling No -Circular Undermining No -Exudate Amt Medium -Exudate Type Serosanguineous -Wound Margin Thickened & Rolled Under -Granulation Amt Large (67-100%) -Granulation Quality [place] -Slough/Fibrin Yes -Necrosis Amt Small (1-33%) -Necrotic Tissue Type Adherent Slough -Texture (Sheyla-wound Skin Appearance) No Abnormality -Moisture (Sheyla-wound Skin Appearance) No Abnormality, Assessed -Color (Sheyla-wound Skin Appearance) Ecchymosis -Ulcer Cleansing Soap And Water -Foul Odor after Cleansing No #11 right sacral -Combined with other wound No -Current Size (cm) - Length 1 -Current Size (cm) - Width 1 -Current Size (cm) - Depth 0.3 -Total Square Cm 1 -Photo Taken No -Tunneling No -Undermining/Tunneling No -Circular Undermining No -Exudate Amt Medium -Exudate Type Serosanguineous -Wound Margin Thickened -Granulation Amt Large (67-100%) -Granulation Quality Pale -Slough/Fibrin Yes -Necrosis Amt Small (1-33%) -Necrotic Tissue Type Adherent Slough -Texture (Sheyla-wound Skin Appearance) No Abnormality -Moisture (Sheyla-wound Skin Appearance) No Abnormality -Color (Sheyla-wound Skin Appearance) No Abnormality -Temperature (Sheyla-wound Skin No Abnormality Appearance) (Pt Warm) -Ulcer Cleansing Soap And Water -Foul Odor after Cleansing No #9 R Buttocks -Combined with other wound No -Current Size (cm) - Length 1.5 -Current Size (cm) - Width 3.0 -Current Size (cm) - Depth 0.6 -Total Square Cm 4.50 -Photo Taken No -Epithelialization None Present -Tunneling No -Undermining/Tunneling No -Circular Undermining No -Exudate Amt Medium -Exudate Type Serosanguineous -Wound Margin Thickened & Rolled Under -Granulation Amt Large (67-100%) -Granulation Quality [place] -Slough/Fibrin Yes -Necrosis Amt Small (1-33%) -Necrotic Tissue Type Adherent Slough -Texture (Sheyla-wound Skin Appearance) No Abnormality -Moisture (Sheyla-wound Skin Appearance) No Abnormality -Color (Sheyla-wound Skin Appearance) No Abnormality -Temperature (Sheyla-wound Skin No Abnormality Appearance) (Pt Warm) -Ulcer Cleansing Soap And Water -Foul Odor after Cleansing No #8 L Buttucks -Combined with other wound No -Photo Taken No -Tunneling No -Undermining/Tunneling No -Circular Undermining No -Exudate Amt Medium -Exudate Type Serosanguineous -Wound Margin Thickened & Rolled Under -Granulation Amt Large (67-100%) -Granulation Quality [place] -Slough/Fibrin Yes -Necrosis Amt Small (1-33%) -Necrotic Tissue Type Adherent Slough -Texture (Sheyla-wound Skin Appearance) No Abnormality -Moisture (Sheyla-wound Skin Appearance) No Abnormality -Color (Sheyla-wound Skin Appearance) No Abnormality -Temperature (Sheyla-wound Skin No Abnormality Appearance) (Pt Warm) -Ulcer Cleansing Soap And Water WC - Nurse 2 - General Ulcer CM Notes Start: 08/14/20 11:13 Freq: Status: Active Protocol: Activity Type Activity Date Activity User E-Sign Co-Sign Detail Recorded Client Recorded Date Recorded By Document 08/14/20 11:29 MW Desktop 08/14/20 11:37 MW 08/14/20 11:29 Wound Center Nurse 2 #12 left sacral -Time 11:29 -Correct Patient Yes -Correct Side, Site, Position Yes -Correct Procedure Yes -Procedure Performed Yes -Type of Procedure Debridement -Clinical Debridement Subcutaneous -Tissue Removed Subcutaneous -Post Debridement (cm) - Length 3.5 -Post Debridement (cm) - Width 2.5 -Post Debridement (cm) - Depth 1.3 -Total Square (Post) (cm) 8.75 -Area of Debridement (cm) - Length 3.5 -Area of Debridement (cm) - Width 2.5 -Total Square (Area) (cm) 8.75 -Tunneling No -Undermining/Tunneling No -Circular Undermining No -Wound/Ulcer Outcome Not Healed -Ulcer Cleansing Rinsed/ Irrigated with Saline -Foul Odor after Cleansing No -Bioengineered Tissue No -Bleeding Controlled with Pressure -Offloading No -Treatment Response Procedure Tolerated Well -Debridement - Subq, 1st 20sq cm Yes -Debridement, SubQ, ea addt'l 20sq cm 4 or part thereof #11 right sacral -Time 11:29 -Correct Patient Yes -Correct Side, Site, Position Yes -Correct Procedure Yes -Procedure Performed Yes -Type of Procedure Debridement -Clinical Debridement Subcutaneous -Tissue Removed Subcutaneous -Post Debridement (cm) - Length 3.3 -Post Debridement (cm) - Width 0.8 -Post Debridement (cm) - Depth 1.2 -Total Square (Post) (cm) 2.64 -Area of Debridement (cm) - Length 3.3 -Area of Debridement (cm) - Width 0.8 -Total Square (Area) (cm) 2.64 -Tunneling No -Undermining/Tunneling No -Circular Undermining No -Wound/Ulcer Outcome Not Healed -Ulcer Cleansing Rinsed/ Irrigated with Saline -Foul Odor after Cleansing No -Bioengineered Tissue No -Bleeding Controlled with Pressure -Offloading No -Treatment Response Procedure Tolerated Well -Debridement - Subq, 1st 20sq cm No #9 R Buttocks -Time 11:30 -Correct Patient Yes -Correct Side, Site, Position Yes -Correct Procedure Yes -Procedure Performed Yes -Type of Procedure Debridement -Clinical Debridement Subcutaneous -Tissue Removed Subcutaneous -Post Debridement (cm) - Length 9.0 -Post Debridement (cm) - Width 3.5 -Post Debridement (cm) - Depth 1.1 -Total Square (Post) (cm) 31.50 -Area of Debridement (cm) - Length 9.0 -Area of Debridement (cm) - Width 3.5 -Total Square (Area) (cm) 31.50 -Tunneling No -Undermining/Tunneling No -Circular Undermining No -Wound/Ulcer Outcome Not Healed -Ulcer Cleansing Rinsed/ Irrigated with Saline -Foul Odor after Cleansing No -Bioengineered Tissue No -Bleeding Controlled with Pressure -Offloading No -Treatment Response Procedure Tolerated Well -Debridement - Subq, 1st 20sq cm No #8 L Buttucks -Time 11:30 -Correct Patient Yes -Correct Side, Site, Position Yes -Correct Procedure Yes -Procedure Performed Yes -Type of Procedure Debridement -Clinical Debridement Subcutaneous -Tissue Removed Subcutaneous -Post Debridement (cm) - Length 7.5 -Post Debridement (cm) - Width 5.0 -Post Debridement (cm) - Depth 1.8 -Total Square (Post) (cm) 37.50 -Area of Debridement (cm) - Length 7.5 -Area of Debridement (cm) - Width 5.0 -Total Square (Area) (cm) 37.50 -Tunneling No -Undermining/Tunneling No -Circular Undermining No -Wound/Ulcer Outcome Not Healed -Ulcer Cleansing Rinsed/ Irrigated with Saline -Foul Odor after Cleansing No -Bioengineered Tissue No -Bleeding Controlled with Pressure -Offloading No -Treatment Response Procedure Tolerated Well -Debridement - Subq, 1st 20sq cm No Pain Scale: 0-10 Numeric Is Patient Pain Free? Yes Wound debrided: Left sacral ulcer Type of Debridement: Excisional debridement Anesthesia Used: 4% Lidocaine Solution Depth: Down to and including healthy tissue and in the subcutaneous layer Percentage of wound debrided: 100 Instrument Used: 5mm curette Tissue Removed: Slough and devitalized tissue Severity: Fat Layer Exposed Amount of bleeding with debridement: Mild Bleeding Controlled with: Pressure Patient tolerated procedure: Patient tolerated procedure well Additional Wound Wound debrided: Right sacral ulcer Type of Debridement: Excisional debridement Anesthesia Used: 4% Lidocaine Solution Depth: Down to and including healthy tissue and in the subcutaneous layer Percentage of wound debrided: 100 Instrument Used: 5mm curette Tissue Removed: Slough and devitalized tissue Severity: Fat Layer Exposed Amount of bleeding with debridement: Mild Bleeding Controlled with: Pressure Patient tolerated procedure: Patient tolerated procedure well Additional Wound Wound debrided: Left buttock Type of Debridement: Excisional debridement Anesthesia Used: 4% Lidocaine Solution Depth: Down to and including healthy tissue and in the subcutaneous layer Percentage of wound debrided: 100 Instrument Used: 5mm curette Tissue Removed: Slough and devitalized tissue Severity: Fat Layer Exposed Amount of bleeding with debridement: Mild Bleeding Controlled with: Pressure Patient tolerated procedure: Patient tolerated procedure well Additional Wound Wound debrided: Right buttock Type of Debridement: Excisional debridement Anesthesia Used: 4% Lidocaine Solution Depth: Down to and including healthy tissue and in the subcutaneous layer Percentage of wound debrided: 100 Instrument Used: 5mm curette Tissue Removed: Slough and devitalized tissue Severity: Fat Layer Exposed Amount of bleeding with debridement: Mild Bleeding Controlled with: Pressure Patient tolerated procedure: Patient tolerated procedure well Assessment/Plan Assessment/Plan (1) Sacral decubitus ulcer, stage IV: CODE(S): L89.154 - Pressure ulcer of sacral region, stage 4 (2) Decubitus ulcer of right buttock, stage 4: CODE(S): L89.314 - Pressure ulcer of right buttock, stage 4 (3) Decubitus ulcer of left buttock, stage 4: CODE(S): L89.324 - Pressure ulcer of left buttock, stage 4 (4) Chronic osteomyelitis involving pelvic region and thigh: CODE(S): M86.659 - Other chronic osteomyelitis, unspecified thigh (5) Paraplegia: CODE(S): G82.20 - Paraplegia, unspecified PLAN: Debridement done as documented above, procedure well-tolerated. Continue 10 minute Acetic acid soak to all ulcers then calcium alginate/collagen dressing. Change daily to twice daily depending on drainage. Continue optimal dietary and protein intake. Offloading also recommended. Now open to wound VAC. We will only do 100 time. Apply wound VAC to right buttock ulcer. 125mmHg. Change every 48 hours by home health. His questions were answered and they were advised to call with any further questions or concerns. Follow up in 2 weeks Per patient preference. This note was generated with [employer] dictation software. It may contain incorrect words, spelling, and punctuation that were not noted in checking the note before signing. This note was generated with [employer] dictation software. It may contain incorrect words, spelling, and punctuation that were not noted in checking the note before signing.
[2020-08-28 10:43] VITALS: BP 102/56; PULSE 83; RESP 18; TEMP 36.4; BMI 27.8
--- NOTE | 2020-08-28 12:36 | PCM.WC.PN ---
History of Present Illness Date of Service: 08/28/20 Chief Complaint: Non healing, chronic decubitus pressure ulcers, stage IV, with osteomyelitis - thigh, buttock, sacrum. History of Wound: Mr. Joyce is a 33yo well known to the wound center but was last seen here over a month ago. Initial sacral ulcer was said to have started in November and Buttock ulcers were noted subsequently. He has had an extensive hospital stay over the last couple of months following a work related injury. Both during his [facility] and [facility] stays, he had wound care ranging from surgical debridement, wound vac and collagen use. He was scheduled to be restarted on his wound Vac prior to his discharge from the [place]. He reports significant drainage from the wounds. Also of note is a history of osteomyelitis for which he was on a 6 week IV antibiotic. His however states they were informed that he had developed chronic extensive pelvic area osteomyelitis. He feels well otherwise at this time and denies chills, fever,nausea, vomitting or change in bowel habit. 02/22/2019: Above, he was last seen here over a month ago. Had an extensive hospital stay [facility] due to complications from prior neck surgery. They state that his ulcers have been stable. Been doing the acetic acid soak for 10 minutes and then calcium alginate/collagen dressings. Denies any concerns at this time. Subjective Subjective Mid sacral area with some superficial opening. Yet to receive wound VAC. Objective Data Objective Data Vital Signs: Vital Signs Temp Pulse Resp BP 97.6 F L 83 18 102/56 L 08/28/20 10:43 08/28/20 10:43 08/28/20 10:43 08/28/20 10:43 Body Mass Index (BMI) 27.8 Charges/Coding Procedures Integumentary 111xxx-113xx: [id number] Oxana subq tissue 20 sq cm/< Add On Codes: 79799 Oxana subq tissue add-on (x3 additional square centimeter debrided, please refer to clinical note) Physical Exam Const alert and oriented x3 General Appearance: cooperative and comfortable HEENT normocephalic and hearing grossly normal bilaterally Head and Scalp: normal to inspection and normocephalic Neck full ROM and supple Resp normal respiratory effort Effort and Inspection: able to speak in complete sentences Skin Wounds: wounds noted Debridement Note Debridement Note Post-Debridement Measurements and Additional Note: Post-Debridement Measurements/Treatment WC - Nurse 1 - General Ulcer Assessment Start: 08/14/20 11:13 Freq: Status: Active Protocol: JUDITH Activity Type Activity Date Activity User E-Sign Co-Sign Detail Recorded Client Recorded Date Recorded By Document 08/14/20 11:13 PL [id number] 08/14/20 11:18 PL Document 08/28/20 10:43 PL [id number] 08/28/20 10:56 PL 08/14/20 08/28/20 11:13 10:43 WC - Today's Visit Information Type of service Follow-up Visit Follow-up Visit (Physician/DELI COOK (Physician/DELI COOK ) ) Arrival Mode Wheelchair Wheelchair Transfer Assistance Manual Manual Patient Identification Verified (Name & Yes Yes ) Patient Requires Transmission-Based No No Precautions Safety Precautions NA NA Height and Weight Body Mass Index (BMI) 27.8 27.8 BMI Classification Overweight Overweight Vital Signs Temperature (97.8 F-99.1 F) 97.6 F L 97.6 F L Temperature Source Temporal Temporal Pulse Rate (60-100) 74 83 Respiratory Rate (12-18) 18 18 Blood Pressure (90/60-120/80) 109/65 102/56 L Blood Pressure Mean (mm Hg) 79 71 History Since Last Visit- (Skip if this is Patient's initial visit) Have you changed medications since your No No last visit? Any new allergies or adverse reactions No No Had a fall/change in ADL's that may No No increase risk of falls Signs or symptoms of abuse and/or No No neglect since last visit Have you been in the hospital since your No No last visit? Has dressing in place as prescribed Yes Yes Has compression in place as prescribed N/A N/A Has offloadiing in place as prescribed N/A Yes Experienced any changes in pain level or No management Pain Scale: 0-10 Numeric Is Patient Pain Free? Yes - Nurse 1 - General Ulcer Measurement Start: 08/14/20 11:13 Freq: Status: Active Protocol: Activity Type Activity Date Activity User E-Sign Co-Sign Detail Recorded Client Recorded Date Recorded By Document 08/14/20 11:13 PL [id number] 08/14/20 11:18 PL Document 08/28/20 10:43 PL [id number] 08/28/20 10:56 PL 08/14/20 08/28/20 11:13 10:43 Wound Center Nurse 1 #13 Sacral Middle -Combined with other wound No -Current Size (cm) - Length 2 -Current Size (cm) - Width 4.4 -Current Size (cm) - Depth 0.1 -Total Square Cm 8.8 -Date of Last Picture (Recall this 08/28/20 field) -Photo Taken Yes -Epithelialization Medium 34-66% -Tunneling No -Undermining/Tunneling No -Circular Undermining No -Exudate Amt Medium -Exudate Type Serosanguineous -Wound Margin Indistinct, Non -Visible -Granulation Amt Large (67-100%) -Granulation Quality [place] -Slough/Fibrin Yes -Necrosis Amt Small (1-33%) -Necrotic Tissue Type Adherent Slough -Texture (Sheyla-wound Skin Appearance) No Abnormality -Moisture (Sheyla-wound Skin Appearance) No Abnormality -Color (Sheyla-wound Skin Appearance) No Abnormality -Temperature (Sheyla-wound Skin No Abnormality Appearance) (Pt Warm) -Tenderness on Palpation (Sheyla-wound No Skin Appearance) -Ulcer Cleansing Soap and Water #12 left sacral -Combined with other wound No No -Current Size (cm) - Length 4 3.6 -Current Size (cm) - Width 0.5 2.5 -Current Size (cm) - Depth 0.3 0.1 -Total Square Cm 2.0 9.00 -Photo Taken No No -Epithelialization None Present None Present -Tunneling Yes No -Tunneling Position (O'clock) 12 -Tunneling Distance (cm) 5 -Undermining/Tunneling No No -Circular Undermining No No -Exudate Amt Medium Medium -Exudate Type Serosanguineous Serosanguineous -Wound Margin Thickened & Rolled Under -Granulation Amt Large (67-100%) Large (67-100%) -Granulation Quality [place] -Slough/Fibrin Yes Yes -Necrosis Amt Small (1-33%) Small (1-33%) -Necrotic Tissue Type Adherent Slough Adherent Slough -Texture (Sheyla-wound Skin Appearance) No Abnormality No Abnormality -Moisture (Sheyla-wound Skin Appearance) No Abnormality, No Abnormality Assessed -Color (Sheyla-wound Skin Appearance) Ecchymosis No Abnormality -Temperature (Sheyla-wound Skin No Abnormality Appearance) (Pt Warm) -Ulcer Cleansing Soap And Water Soap and Water -Foul Odor after Cleansing No #11 right sacral -Combined with other wound No -Current Size (cm) - Length 1 3.0 -Current Size (cm) - Width 1 1.0 -Current Size (cm) - Depth 0.3 0.1 -Total Square Cm 1 3.00 -Photo Taken No No -Epithelialization None Present -Tunneling No No -Undermining/Tunneling No No -Circular Undermining No No -Exudate Amt Medium Medium -Exudate Type Serosanguineous Serous -Wound Margin Thickened -Granulation Amt Large (67-100%) Medium (34-66%) -Granulation Quality [place] -Slough/Fibrin Yes Yes -Necrosis Amt Small (1-33%) Small (1-33%) -Necrotic Tissue Type Adherent Slough Adherent Slough -Texture (Sheyla-wound Skin Appearance) No Abnormality No Abnormality -Moisture (Sheyla-wound Skin Appearance) No Abnormality No Abnormality -Color (Sheyla-wound Skin Appearance) No Abnormality No Abnormality -Temperature (Sheyla-wound Skin No Abnormality Appearance) (Pt Warm) -Ulcer Cleansing Soap And Water Rinsed/ Irrigated with Saline -Foul Odor after Cleansing No No #9 R Buttocks -Combined with other wound No No -Current Size (cm) - Length 1.5 7.5 -Current Size (cm) - Width 3.0 3.8 -Current Size (cm) - Depth 0.6 1.0 -Total Square Cm 4.50 28.50 -Photo Taken No No -Epithelialization None Present None Present -Tunneling No No -Undermining/Tunneling No No -Circular Undermining No No -Exudate Amt Medium Medium -Exudate Type Serosanguineous Serosanguineous -Wound Margin Thickened & Rolled Under -Granulation Amt Large (67-100%) Large (67-100%) -Granulation Quality [place] -Slough/Fibrin Yes Yes -Necrosis Amt Small (1-33%) Small (1-33%) -Necrotic Tissue Type Adherent Slough Adherent Slough -Texture (Sheyla-wound Skin Appearance) No Abnormality No Abnormality -Moisture (Sheyla-wound Skin Appearance) No Abnormality No Abnormality -Color (Sheyla-wound Skin Appearance) No Abnormality No Abnormality -Temperature (Sheyla-wound Skin No Abnormality Appearance) (Pt Warm) -Ulcer Cleansing Soap And Water Soap and Water -Foul Odor after Cleansing No #8 L Buttucks -Combined with other wound No No -Current Size (cm) - Length 6.7 -Current Size (cm) - Width 5.0 -Current Size (cm) - Depth 1.7 -Total Square Cm 33.50 -Photo Taken No No -Epithelialization None Present -Tunneling No No -Undermining/Tunneling No No -Circular Undermining No No -Exudate Amt Medium Medium -Exudate Type Serosanguineous Serosanguineous -Wound Margin Thickened & Rolled Under -Granulation Amt Large (67-100%) Large (67-100%) -Granulation Quality [place] -Slough/Fibrin Yes Yes -Necrosis Amt Small (1-33%) Small (1-33%) -Necrotic Tissue Type Adherent Slough Adherent Slough -Texture (Sheyla-wound Skin Appearance) No Abnormality -Moisture (Sheyla-wound Skin Appearance) No Abnormality No Abnormality -Color (Sheyla-wound Skin Appearance) No Abnormality No Abnormality -Temperature (Sheyla-wound Skin No Abnormality No Abnormality Appearance) (Pt Warm) (Pt Warm) -Ulcer Cleansing Soap And Water Rinsed/ Irrigated with Saline -Foul Odor after Cleansing No WC - Nurse 2 - General Ulcer CM Notes Start: 08/14/20 11:13 Freq: Status: Active Protocol: Activity Type Activity Date Activity User E-Sign Co-Sign Detail Recorded Client Recorded Date Recorded By Document 08/14/20 11:29 MW Desktop 08/14/20 11:37 MW Document 08/28/20 11:06 MW [id number] 08/28/20 11:18 MW 08/14/20 08/28/20 11:29 11:06 Wound Center Nurse 2 #13 Sacral Middle -Time 11:10 -Correct Patient Yes -Correct Side, Site, Position Yes -Correct Procedure Yes -Procedure Performed Yes -Type of Procedure Debridement -Clinical Debridement Subcutaneous -Tissue Removed Subcutaneous -Post Debridement (cm) - Length 0.1 -Post Debridement (cm) - Width 0.1 -Post Debridement (cm) - Depth 0.1 -Total Square (Post) (cm) 0.01 -Area of Debridement (cm) - Length 0.1 -Area of Debridement (cm) - Width 0.1 -Total Square (Area) (cm) 0.01 -Tunneling No -Undermining/Tunneling No -Circular Undermining No -Wound/Ulcer Outcome Not Healed -Ulcer Cleansing Rinsed/ Irrigated with Saline -Foul Odor after Cleansing No -Bioengineered Tissue No -Bleeding Controlled with Pressure -Offloading No -Treatment Response Procedure Tolerated Well -Debridement - Subq, 1st 20sq cm No #12 left sacral -Time 11:11 -Correct Patient Yes Yes -Correct Side, Site, Position Yes Yes -Correct Procedure Yes Yes -Procedure Performed Yes Yes -Type of Procedure Debridement Debridement -Clinical Debridement Subcutaneous Subcutaneous -Tissue Removed Subcutaneous Subcutaneous -Post Debridement (cm) - Length 3.5 3.5 -Post Debridement (cm) - Width 2.5 2.0 -Post Debridement (cm) - Depth 1.3 1.2 -Total Square (Post) (cm) 8.75 7.00 -Area of Debridement (cm) - Length 3.5 3.5 -Area of Debridement (cm) - Width 2.5 2.0 -Total Square (Area) (cm) 8.75 7.00 -Tunneling No No -Undermining/Tunneling No No -Circular Undermining No No -Wound/Ulcer Outcome Not Healed Not Healed -Ulcer Cleansing Rinsed/ Rinsed/ Irrigated with Irrigated with Saline Saline -Foul Odor after Cleansing No No -Bioengineered Tissue No No -Bleeding Controlled with Pressure Pressure -Offloading No No -Treatment Response Procedure Procedure Tolerated Well Tolerated Well -Debridement - Subq, 1st 20sq cm Yes Yes -Debridement, SubQ, ea addt'l 20sq cm 4 3 or part thereof #11 right sacral -Time 11:11 -Correct Patient Yes Yes -Correct Side, Site, Position Yes Yes -Correct Procedure Yes Yes -Procedure Performed Yes Yes -Type of Procedure Debridement Debridement -Clinical Debridement Subcutaneous Subcutaneous -Tissue Removed Subcutaneous Subcutaneous -Post Debridement (cm) - Length 3.3 3.5 -Post Debridement (cm) - Width 0.8 0.5 -Post Debridement (cm) - Depth 1.2 0.9 -Total Square (Post) (cm) 2.64 1.75 -Area of Debridement (cm) - Length 3.3 3.5 -Area of Debridement (cm) - Width 0.8 0.5 -Total Square (Area) (cm) 2.64 1.75 -Tunneling No No -Undermining/Tunneling No No -Circular Undermining No No -Wound/Ulcer Outcome Not Healed Not Healed -Ulcer Cleansing Rinsed/ Rinsed/ Irrigated with Irrigated with Saline Saline -Foul Odor after Cleansing No No -Bioengineered Tissue No No -Bleeding Controlled with Pressure Pressure -Offloading No No -Treatment Response Procedure Procedure Tolerated Well Tolerated Well -Debridement - Subq, 1st 20sq cm No No #9 R Buttocks -Time 11:30 11:11 -Correct Patient Yes Yes -Correct Side, Site, Position Yes Yes -Correct Procedure Yes Yes -Procedure Performed Yes Yes -Type of Procedure Debridement Debridement -Clinical Debridement Subcutaneous Subcutaneous -Tissue Removed Subcutaneous Subcutaneous -Post Debridement (cm) - Length 9.0 7.8 -Post Debridement (cm) - Width 3.5 3.8 -Post Debridement (cm) - Depth 1.1 1.2 -Total Square (Post) (cm) 31.50 29.64 -Area of Debridement (cm) - Length 9.0 7.8 -Area of Debridement (cm) - Width 3.5 3.8 -Total Square (Area) (cm) 31.50 29.64 -Tunneling No No -Undermining/Tunneling No No -Circular Undermining No No -Wound/Ulcer Outcome Not Healed Not Healed -Ulcer Cleansing Rinsed/ Rinsed/ Irrigated with Irrigated with Saline Saline -Foul Odor after Cleansing No No -Bioengineered Tissue No No -Bleeding Controlled with Pressure Pressure -Offloading No No -Treatment Response Procedure Procedure Tolerated Well Tolerated Well -Debridement - Subq, 1st 20sq cm No No #8 L Buttucks -Time 11:30 11:15 -Correct Patient Yes Yes -Correct Side, Site, Position Yes Yes -Correct Procedure Yes Yes -Procedure Performed Yes Yes -Type of Procedure Debridement Debridement -Clinical Debridement Subcutaneous Subcutaneous -Tissue Removed Subcutaneous Subcutaneous -Post Debridement (cm) - Length 7.5 7.5 -Post Debridement (cm) - Width 5.0 5.0 -Post Debridement (cm) - Depth 1.8 1.6 -Total Square (Post) (cm) 37.50 37.50 -Area of Debridement (cm) - Length 7.5 7.5 -Area of Debridement (cm) - Width 5.0 5.0 -Total Square (Area) (cm) 37.50 37.50 -Tunneling No No -Undermining/Tunneling No No -Circular Undermining No No -Wound/Ulcer Outcome Not Healed Not Healed -Ulcer Cleansing Rinsed/ Rinsed/ Irrigated with Irrigated with Saline Saline -Foul Odor after Cleansing No No -Bioengineered Tissue No No -Bleeding Controlled with Pressure Pressure -Offloading No No -Treatment Response Procedure Procedure Tolerated Well Tolerated Well -Debridement - Subq, 1st 20sq cm No No Pain Scale: 0-10 Numeric Is Patient Pain Free? Yes Yes Wound debrided: Left sacral ulcer Wound Grade/Stage: Stage IV Type of Debridement: Excisional debridement Anesthesia Used: 4% Lidocaine Solution Depth: Down to and including healthy tissue and in the subcutaneous layer Percentage of wound debrided: 100 Instrument Used: 5mm curette Tissue Removed: Slough and devitalized tissue Severity: Fat Layer Exposed Amount of bleeding with debridement: Mild Bleeding Controlled with: Pressure Patient tolerated procedure: Patient tolerated procedure well Additional Wound Wound debrided: Right sacral ulcer Type of Debridement: Excisional debridement Anesthesia Used: 4% Lidocaine Solution Depth: Down to and including healthy tissue and in the subcutaneous layer Percentage of wound debrided: 100 Instrument Used: 5mm curette Tissue Removed: Slough and devitalized tissue Severity: Fat Layer Exposed Amount of bleeding with debridement: Mild Bleeding Controlled with: Pressure Patient tolerated procedure: Patient tolerated procedure well Additional Wound Wound debrided: Left buttock Type of Debridement: Excisional debridement Anesthesia Used: 4% Lidocaine Solution Depth: Down to and including healthy tissue Percentage of wound debrided: 100 Instrument Used: 5mm curette Severity: Fat Layer Exposed Amount of bleeding with debridement: Mild Bleeding Controlled with: Pressure Patient tolerated procedure: Patient tolerated procedure well Additional Wound Wound debrided: Right buttock Type of Debridement: Excisional debridement Anesthesia Used: 4% Lidocaine Solution Depth: Down to and including healthy tissue and in the subcutaneous layer Percentage of wound debrided: 100 Instrument Used: 5mm curette Tissue Removed: Slough and devitalized tissue Severity: Fat Layer Exposed Amount of bleeding with debridement: Mild Bleeding Controlled with: Pressure Patient tolerated procedure: Patient tolerated procedure well Assessment/Plan Assessment/Plan (1) Sacral decubitus ulcer, stage IV: CODE(S): L89.154 - Pressure ulcer of sacral region, stage 4 (2) Decubitus ulcer of right buttock, stage 4: CODE(S): L89.314 - Pressure ulcer of right buttock, stage 4 (3) Decubitus ulcer of left buttock, stage 4: CODE(S): L89.324 - Pressure ulcer of left buttock, stage 4 (4) Chronic osteomyelitis involving pelvic region and thigh: CODE(S): M86.659 - Other chronic osteomyelitis, unspecified thigh (5) Paraplegia: CODE(S): G82.20 - Paraplegia, unspecified PLAN: Debridement done as documented above, procedure well-tolerated. Continue 10 minute Acetic acid soak to all ulcers then calcium alginate/collagen dressing. Change daily to twice daily depending on drainage. Continue optimal dietary and protein intake. Offloading also recommended. Yet to receive wound VAC. We will reach out to agency. When available, change every 48 hours by home health. His questions were answered and they were advised to call with any further questions or concerns. Follow up in 2 weeks Per patient preference. This note was generated with [employer] software. It may contain incorrect words, spelling, and punctuation that were not noted in checking the note before signing. This note was generated with [employer] software. It may contain incorrect words, spelling, and punctuation that were not noted in checking the note before signing.
== END 2020-09-10 23:59 ==
LOC: WC 10:30
PROVIDERS: PCP Internal Medicine; Visit Provider Internal Medicine
DX: L89.154 Pressure ulcer of sacral region, stage 4 (principal); L89.314 Pressure ulcer of right buttock, stage 4; L89.324 Pressure ulcer of left buttock, stage 4; M86.69 Other chronic osteomyelitis, multiple sites; G82.20 Paraplegia, unspecified; E66.3 Overweight; Z68.27 Body mass index [BMI] 27.0-27.9, adult; Z79.84 Long term (current) use of oral hypoglycemic drugs; Z79.1 Long term (current) use of non-steroidal anti-inflammatories (NSAID)
CPT/HCPCS: 11042; 11045

== ENCOUNTER 2020-10-09 11:00 | Outpatient (RCR) | payer OTHER, SELFPAY ==
[2020-09-11 00:18] VITALS: BP 102/56; PULSE 83; RESP 18; TEMP 36.4
[2020-09-18 11:37] VITALS: BP 117/64; PULSE 75; RESP 18; TEMP 36.3; BMI 27.8
--- NOTE | 2020-09-18 13:07 | PN.PCM_ITS ---
History of Present Illness Date of Service: 09/18/20 Chief Complaint: Non healing, chronic decubitus pressure ulcers, stage IV, with osteomyelitis - thigh, buttock, sacrum. History of Wound: Mr. Joyce is a 33yo well known to the wound center but was last seen here over a month ago. Initial sacral ulcer was said to have started in November and Buttock ulcers were noted subsequently. He has had an extensive hospital stay over the last couple of months following a work related injury. Both during his hopsital and alf stays, he had wound care ranging from surgical debridement, wound vac and collagen use. He was scheduled to be restarted on his wound Vac prior to his discharge from the MD. He reports significant drainage from the wounds. Also of note is a history of osteomyelitis for which he was on a 6 week IV antibiotic. His however states they were informed that he had developed chronic extensive pelvic area osteomyelitis. He feels well otherwise at this time and denies chills, fever,nausea, vomitting or change in bowel habit. 02/22/2019: Above, he was last seen here over a month ago. Had an extensive hospital stay [facility] due to complications from prior neck surgery. They state that his ulcers have been stable. Been doing the acetic a kelly soak for 10 minutes and then calcium alginate/collagen dressings. Denies any concerns at this time. Subjective Subjective Yet to start wound VAC. Still pending formalities with insurance. Middle sacral ulcer still open. His home care nurse does not report increased drainage. Objective Data Objective Data Vital Signs: Vital Signs Temp Pulse Resp BP 97.3 F L 75 18 117/64 09/18/20 11:37 09/18/20 11:37 09/18/20 11:37 09/18/20 11:37 Body Mass Index (BMI) 27.8 Charges/Coding Procedures Integumentary 111xxx-113xx: [id number] Oxana subq tissue 20 sq cm/< Add On Codes: 80541 Oxana subq tissue add-on Physical Exam Const alert and oriented x3 General Appearance: cooperative and comfortable HEENT normocephalic and hearing grossly normal bilaterally Head and Scalp: normal to inspection and normocephalic Neck full ROM and supple Resp normal respiratory effort Effort and Inspection: able to speak in complete sentences Skin Wounds: wounds noted Debridement Note Debridement Note Post-Debridement Measurements and Additional Note: Post-Debridement Measurements/Treatment - Nurse 1 - General Ulcer Assessment Start: 09/18/20 11:37 Freq: Status: Active Protocol: JUDITH Activity Type Activity Date Activity User E-Sign Co-Sign Detail Recorded Client Recorded Date Recorded By Document 09/18/20 11:37 AILEEN [id number] 09/18/20 11:46 AILEEN 09/18/20 11:37 - Today's Visit Information Type of service Follow-up Visit (Physician/SWEATBAND FLANGER ) Arrival Mode Ambulatory Transfer Assistance None Patient Identification Verified (Name & Yes ) Patient Requires Transmission-Based No Precautions Height and Weight Body Mass Index (BMI) 27.8 BMI Classification Overweight Vital Signs Temperature (97.8 F-99.1 F) 97.3 F L Temperature Source Temporal Pulse Rate (60-100) 75 Pulse Location Monitor Respiratory Rate (12-18) 18 Respiratory rate source Observation Blood Pressure (90/60-120/80) 117/64 Blood Pressure Mean (mm Hg) 81 Source Monitor Position Semi-Fowlers Blood Pressure Location Left Arm History Since Last Visit- (Skip if this is Patient's initial visit) Have you changed medications since your No last visit? Any new allergies or adverse reactions No Had a fall/change in ADL's that may No increase risk of falls Signs or symptoms of abuse and/or No neglect since last visit Have you been in the hospital since your No last visit? Has dressing in place as prescribed Yes Has compression in place as prescribed No Has offloadiing in place as prescribed No Experienced any changes in pain level or No management Left Footwear Regular Shoe Right Footwear Regular Shoe Pain Scale: 0-10 Numeric Is Patient Pain Free? Yes - Nurse 1 - General Ulcer Measurement Start: 09/18/20 11:37 Freq: Status: Active Protocol: Activity Type Activity Date Activity User E-Sign Co-Sign Detail Recorded Client Recorded Date Recorded By Document 09/18/20 11:37 AILEEN [id number] 09/18/20 11:46 AILEEN 09/18/20 11:37 Wound Center Nurse 1 #13 Sacral Middle -Combined with other wound No -Current Size (cm) - Length 1.8 -Current Size (cm) - Width 4.2 -Current Size (cm) - Depth 0.1 -Total Square Cm 7.56 -Tunneling No -Undermining/Tunneling No -Circular Undermining No -Exudate Amt Medium -Exudate Type Serosanguineous -Wound Margin Distinct, Outline Attached -Granulation Amt Medium (34-66%) -Granulation Quality Guthrie -Slough/Fibrin Yes -Necrosis Amt Small (1-33%) -Necrotic Tissue Type Adherent Slough -Structure Exposed N/A -Texture (Sheyla-wound Skin Appearance) Assessed, Scarring -Moisture (Sheyla-wound Skin Appearance) Assessed -Color (Sheyla-wound Skin Appearance) Assessed -Temperature (Sheyla-wound Skin No Abnormality Appearance) (Pt Warm) -Tenderness on Palpation (Sheyla-wound No Skin Appearance) -Ulcer Cleansing Wound Cleanser -Foul Odor after Cleansing No #12 left sacral -Combined with other wound No -Current Size (cm) - Length 4.5 -Current Size (cm) - Width 3 -Current Size (cm) - Depth 0.3 -Total Square Cm 13.5 -Photo Taken No -Tunneling No -Undermining/Tunneling Yes -Undermining/Tunneling Starts (O'clock 6 ) -Undermining/Tunneling Ends (O'clock) 10 -Maximum Distance (cm) 1.4 -Circular Undermining No -Exudate Amt Medium -Exudate Type Serosanguineous -Wound Margin Distinct, Outline Attached -Granulation Amt Medium (34-66%) -Granulation Quality Guthrie -Necrosis Amt Medium (34-66%) -Necrotic Tissue Type Adherent Slough -Structure Exposed N/A -Texture (Sheyla-wound Skin Appearance) Assessed, Scarring -Moisture (Sheyla-wound Skin Appearance) Assessed -Color (Sheyla-wound Skin Appearance) Assessed -Temperature (Sheyla-wound Skin No Abnormality Appearance) (Pt Warm) -Tenderness on Palpation (Sheyla-wound No Skin Appearance) -Ulcer Cleansing Wound Cleanser -Foul Odor after Cleansing No #11 right sacral -Combined with other wound No -Current Size (cm) - Length 3.5 -Current Size (cm) - Width 2.3 -Current Size (cm) - Depth 0.3 -Total Square Cm 8.05 -Tunneling No -Undermining/Tunneling No -Circular Undermining No -Exudate Amt Medium -Exudate Type Serosanguineous -Wound Margin Distinct, Outline Attached -Granulation Amt Medium (34-66%) -Granulation Quality Guthrie -Slough/Fibrin Yes -Necrosis Amt Small (1-33%) -Necrotic Tissue Type Adherent Slough -Structure Exposed N/A -Texture (Sheyla-wound Skin Appearance) Assessed, Fluctuance -Moisture (Sheyla-wound Skin Appearance) Assessed -Color (Sheyla-wound Skin Appearance) Assessed -Temperature (Sheyla-wound Skin No Abnormality Appearance) (Pt Warm) -Tenderness on Palpation (Sheyla-wound No Skin Appearance) -Ulcer Cleansing Wound Cleanser -Foul Odor after Cleansing No #9 R Buttocks -Combined with other wound No -Current Size (cm) - Length 7.2 -Current Size (cm) - Width 3.1 -Current Size (cm) - Depth 1 -Total Square Cm 22.32 -Tunneling No -Undermining/Tunneling No -Circular Undermining No -Exudate Amt Medium -Exudate Type Serosanguineous -Wound Margin Distinct, Outline Attached -Granulation Amt Medium (34-66%) -Granulation Quality Guthrie -Necrosis Amt Small (1-33%) -Necrotic Tissue Type Adherent Slough -Structure Exposed N/A -Texture (Sheyla-wound Skin Appearance) Assessed, Scarring -Moisture (Sheyla-wound Skin Appearance) Assessed -Color (Sheyla-wound Skin Appearance) Assessed -Temperature (Sheyla-wound Skin No Abnormality Appearance) (Pt Warm) -Tenderness on Palpation (Sheyla-wound No Skin Appearance) -Ulcer Cleansing Wound Cleanser -Foul Odor after Cleansing No #8 L Buttucks -Combined with other wound No -Current Size (cm) - Length 6.5 -Current Size (cm) - Width 7.3 -Current Size (cm) - Depth 1.7 -Total Square Cm 47.45 -Tunneling No -Undermining/Tunneling No -Circular Undermining No -Exudate Amt Medium -Exudate Type Serosanguineous -Wound Margin Distinct, Outline Attached -Granulation Amt Medium (34-66%) -Granulation Quality Guthrie -Slough/Fibrin Yes -Necrosis Amt Small (1-33%) -Necrotic Tissue Type Adherent Slough -Structure Exposed N/A -Texture (Sheyla-wound Skin Appearance) Assessed, Scarring -Moisture (Sheyla-wound Skin Appearance) Assessed -Color (Sheyla-wound Skin Appearance) Assessed -Temperature (Sheyla-wound Skin No Abnormality Appearance) (Pt Warm) -Tenderness on Palpation (Sheyla-wound No Skin Appearance) -Ulcer Cleansing Wound Cleanser -Foul Odor after Cleansing No WC - Nurse 2 - General Ulcer CM Notes Start: 09/18/20 11:37 Freq: Status: Active Protocol: Activity Type Activity Date Activity User E-Sign Co-Sign Detail Recorded Client Recorded Date Recorded By Document 09/18/20 11:57 MW [id number] 09/18/20 12:09 MW 09/18/20 11:57 Wound Center Nurse 2 #13 Sacral Middle -Time 12:04 -Correct Patient Yes -Correct Side, Site, Position Yes -Correct Procedure Yes -Procedure Performed Yes -Type of Procedure Debridement -Clinical Debridement Subcutaneous -Tissue Removed Subcutaneous -Post Debridement (cm) - Length 1.5 -Post Debridement (cm) - Width 5.0 -Post Debridement (cm) - Depth 0.1 -Total Square (Post) (cm) 7.50 -Area of Debridement (cm) - Length 1.5 -Area of Debridement (cm) - Width 5.0 -Total Square (Area) (cm) 7.50 -Tunneling No -Undermining/Tunneling No -Circular Undermining No -Wound/Ulcer Outcome Not Healed -Ulcer Cleansing Rinsed/ Irrigated with Saline -Foul Odor after Cleansing No -Bioengineered Tissue No -Bleeding Controlled with Pressure -Offloading No -Treatment Response Procedure Tolerated Well -Debridement - Subq, 1st 20sq cm Yes -Debridement, SubQ, ea addt'l 20sq cm 4 or part thereof #12 left sacral -Time 12:04 -Correct Patient Yes -Correct Side, Site, Position Yes -Correct Procedure Yes -Procedure Performed Yes -Type of Procedure Debridement -Clinical Debridement Subcutaneous -Tissue Removed Subcutaneous -Post Debridement (cm) - Length 3.5 -Post Debridement (cm) - Width 3.0 -Post Debridement (cm) - Depth 1.3 -Total Square (Post) (cm) 10.50 -Area of Debridement (cm) - Length 3.5 -Area of Debridement (cm) - Width 3.0 -Total Square (Area) (cm) 10.50 -Tunneling No -Circular Undermining No -Wound/Ulcer Outcome Not Healed -Ulcer Cleansing Rinsed/ Irrigated with Saline -Foul Odor after Cleansing No -Bioengineered Tissue No -Bleeding Controlled with Pressure -Offloading No -Treatment Response Procedure Tolerated Well -Debridement - Subq, 1st 20sq cm No #11 right sacral -Time 12:05 -Correct Patient Yes -Correct Side, Site, Position Yes -Correct Procedure Yes -Procedure Performed Yes -Type of Procedure Debridement -Clinical Debridement Subcutaneous -Tissue Removed Subcutaneous -Post Debridement (cm) - Length 2.0 -Post Debridement (cm) - Width 1.0 -Post Debridement (cm) - Depth 1.0 -Total Square (Post) (cm) 2.00 -Area of Debridement (cm) - Length 2.0 -Area of Debridement (cm) - Width 1.0 -Total Square (Area) (cm) 2.00 -Tunneling No -Undermining/Tunneling No -Circular Undermining No -Wound/Ulcer Outcome Not Healed -Ulcer Cleansing Rinsed/ Irrigated with Saline -Foul Odor after Cleansing No -Bioengineered Tissue No -Bleeding Controlled with Pressure -Offloading No -Treatment Response Procedure Tolerated Well -Debridement - Subq, 1st 20sq cm No #9 R Buttocks -Time 12:05 -Correct Patient Yes -Correct Side, Site, Position Yes -Correct Procedure Yes -Procedure Performed Yes -Type of Procedure Debridement -Clinical Debridement Subcutaneous -Tissue Removed Subcutaneous -Post Debridement (cm) - Length 7.5 -Post Debridement (cm) - Width 3.2 -Post Debridement (cm) - Depth 1.7 -Total Square (Post) (cm) 24.00 -Area of Debridement (cm) - Length 7.5 -Area of Debridement (cm) - Width 3.2 -Total Square (Area) (cm) 24.00 -Tunneling No -Undermining/Tunneling No -Circular Undermining No -Wound/Ulcer Outcome Not Healed -Ulcer Cleansing Rinsed/ Irrigated with Saline -Foul Odor after Cleansing No -Bioengineered Tissue No -Bleeding Controlled with Pressure -Offloading No -Treatment Response Procedure Tolerated Well -Debridement - Subq, 1st 20sq cm No #8 L Buttucks -Time 12:05 -Correct Patient Yes -Correct Side, Site, Position Yes -Correct Procedure Yes -Procedure Performed Yes -Type of Procedure Debridement -Clinical Debridement Subcutaneous -Tissue Removed Subcutaneous -Post Debridement (cm) - Length 7.5 -Post Debridement (cm) - Width 5.0 -Post Debridement (cm) - Depth 1.8 -Total Square (Post) (cm) 37.50 -Area of Debridement (cm) - Length 7.5 -Area of Debridement (cm) - Width 5.0 -Total Square (Area) (cm) 37.50 -Tunneling No -Undermining/Tunneling No -Circular Undermining No -Wound/Ulcer Outcome Not Healed -Ulcer Cleansing Rinsed/ Irrigated with Saline -Foul Odor after Cleansing No -Bioengineered Tissue No -Bleeding Controlled with Pressure -Offloading No -Treatment Response Procedure Tolerated Well -Debridement - Subq, 1st 20sq cm No Pain Scale: 0-10 Numeric Is Patient Pain Free? Yes - Nurse 3 - General Ulcer D/C NN Start: 09/18/20 11:37 Freq: Status: Active Protocol: Activity Type Activity Date Activity User E-Sign Co-Sign Detail Recorded Client Recorded Date Recorded By Document 09/18/20 12:08 Desktop 09/18/20 12:12 09/18/20 12:08 Wound Care Nurse 3 #13 Sacral Middle -Ulcer Cleansing Rinsed/ Irrigated with Saline -Other Dressing COLLAGEN, CALCIUM ALGINATE MEPILEX #12 left sacral -Ulcer Cleansing Rinsed/ Irrigated with Saline -Other Dressing COLLAGEN, CALCIUM ALGINATE, MEPILEX #11 right sacral -Ulcer Cleansing Rinsed/ Irrigated with Saline -Other Dressing COLLAGEN, CLCIUM ALGINAE, MEPILEX #9 R Buttocks -Ulcer Cleansing Rinsed/ Irrigated with Saline -Other Dressing COLLAGEN, CALCIUM ALINATE , ISLAND DRESSING OR MEPILEX #8 L Buttucks -Ulcer Cleansing Rinsed/ Irrigated with Saline -Other Dressing COLLAGEN, CALCIUM ALGINTE , ISLAND MEPILEX Treatment Response Procedure Tolerated Well Pain Scale: 0-10 Numeric Is Patient Pain Free? Yes - Visit Discharge Discharge Condition Stable Ambulatory Status Wheelchair Transportation Private Auto Medication Reconcilliation completed & No provided to patient/care provider Clinical Summary of Care Provided Yes Wound debrided: Left sacral Type of Debridement: Excisional debridement Anesthesia Used: 4% Lidocaine Solution Depth: Down to and including healthy tissue and in the subcutaneous layer Percentage of wound debrided: 100 Instrument Used: 5mm curette Tissue Removed: Slough and devitalized tissue Severity: Fat Layer Exposed Amount of bleeding with debridement: Mild Bleeding Controlled with: Pressure Patient tolerated procedure: Patient tolerated procedure well Additional Wound Wound debrided: Middle sacral Type of Debridement: Excisional debridement Anesthesia Used: 4% Lidocaine Solution Depth: Down to and including healthy tissue and in the subcutaneous layer Percentage of wound debrided: 100 Instrument Used: 5mm curette Tissue Removed: Slough and devitalized tissue Severity: Fat Layer Exposed Amount of bleeding with debridement: Mild Bleeding Controlled with: Pressure Patient tolerated procedure: Patient tolerated procedure well Additional Wound Wound debrided: Right sacral Type of Debridement: Excisional debridement Anesthesia Used: 4% Lidocaine Solution Depth: Down to and including healthy tissue and in the subcutaneous layer Percentage of wound debrided: 100 Instrument Used: 5mm curette Tissue Removed: Slough and devitalized tissue Severity: Fat Layer Exposed Amount of bleeding with debridement: Mild Bleeding Controlled with: Pressure Patient tolerated procedure: Patient tolerated procedure well Additional Wound Wound debrided: Right buttock Type of Debridement: Excisional debridement Anesthesia Used: 4% Lidocaine Solution Depth: Down to and including healthy tissue and in the subcutaneous layer Percentage of wound debrided: 100 Instrument Used: 5mm curette Tissue Removed: Slough and devitalized tissue Severity: Fat Layer Exposed Amount of bleeding with debridement: Mild Bleeding Controlled with: Pressure Patient tolerated procedure: Patient tolerated procedure well Additional Wound Wound debrided: Left buttock Type of Debridement: Excisional debridement Anesthesia Used: 4% Lidocaine Solution Depth: Down to and including healthy tissue and in the subcutaneous layer Percentage of wound debrided: 100 Instrument Used: 5mm curette Tissue Removed: Slough and devitalized tissue Severity: Fat Layer Exposed Amount of bleeding with debridement: Mild Bleeding Controlled with: Pressure Patient tolerated procedure: Patient tolerated procedure well Assessment/Plan Assessment/Plan (1) Sacral decubitus ulcer, stage IV: CODE(S): L89.154 - Pressure ulcer of sacral region, stage 4 (2) Decubitus ulcer of right buttock, stage 4: CODE(S): L89.314 - Pressure ulcer of right buttock, stage 4 (3) Decubitus ulcer of left buttock, stage 4: CODE(S): L89.324 - Pressure ulcer of left buttock, stage 4 (4) Chronic osteomyelitis involving pelvic region and thigh: CODE(S): M86.659 - Other chronic osteomyelitis, unspecified thigh (5) Paraplegia: CODE(S): G82.20 - Paraplegia, unspecified PLAN: Debridement done as documented above, procedure well-tolerated. Cultures taken due to worsening medial sacral ulcer. Continue 10 minute Acetic acid soak to all ulcers then calcium alginate/collagen dressing. Change daily to twice daily depending on drainage. Continue optimal dietary and protein intake. Offloading been strongly recommended. Yet to receive wound VAC. When available, started 125 mcg and change every 48 hours by home health. His questions were answered and they were advised to call with any further questions or concerns. Follow up in 2 weeks Per patient preference. This note was generated with [employer] software. It may contain incorrect words, spelling, and punctuation that were not noted in checking the note before signing. This note was generated with [employer] software. It may contain incorrect words, spelling, and punctuation that were not noted in checking the note before signing.
[2020-10-09 11:11] VITALS: BP 93/61; PULSE 73; RESP 20; TEMP 36.6; BMI 27.8
--- NOTE | 2020-10-09 16:26 | PN.PCM_ITS ---
History of Present Illness Date of Service: 10/09/20 Chief Complaint: Non healing, chronic decubitus pressure ulcers, stage IV, with osteomyelitis - thigh, buttock, sacrum. History of Wound: Mr. Joyce is a 33yo well known to the wound center but was last seen here over a month ago. Initial sacral ulcer was said to have started in November and Buttock ulcers were noted subsequently. He has had an extensive hospital stay over the last couple of months following a work related injury. Both during his hopsital and group home stays, he had wound care ranging from surgical debridement, wound vac and collagen use. He was scheduled to be restarted on his wound Vac prior to his discharge from the [place]. He reports significant drainage from the wounds. Also of note is a history of osteomyelitis for which he was on a 6 week IV antibiotic. His however states they were informed that he had developed chronic extensive pelvic area osteomyelitis. He feels well otherwise at this time and denies chills, fever,nausea, vomitting or change in bowel habit. 02/22/2019: Above, he was last seen here over a month ago. Had an extensive hospital stay [facility] due to complications from prior neck surgery. They state that his ulcers have been stable. Been doing the acetic a kelly soak for 10 minutes and then calcium alginate/collagen dressings. Denies any concerns at this time. Subjective Subjective No acute concerns at this time. Has been using his wound VAC to right buttock ulcer for the past 2 weeks. Tolerating it well. Currently at 125 mmHg. Objective Data Objective Data Vital Signs: Vital Signs Temp Pulse Resp BP 97.8 F 73 20 H 93/61 10/09/20 11:11 10/09/20 11:11 10/09/20 11:11 10/09/20 11:11 Body Mass Index (BMI) 27.8 Lab / Micro Data Micro: Microbiology 09/18/20 12:00 Wound - Sacral Gram Stain - Final 09/18/20 12:00 Wound - Sacral Wound Culture - Final Escherichia coli Staphylococcus haemolyticus Corynebacterium striatum 09/18/20 12:00 Wound - Sacral Anaerobic Culture - Final No anaerobic bacteria isolated. Charges/Coding Procedures Integumentary [id number]: [id number] Oxana subq tissue 20 sq cm/< Add On Codes: 65088 Oxana subq tissue add-on (Additional square centimeter debrided, please refer to clinical note) Physical Exam Const alert and oriented x3 General Appearance: cooperative and comfortable HEENT normocephalic and hearing grossly normal bilaterally Head and Scalp: normal to inspection and normocephalic Neck full ROM and supple Resp normal respiratory effort Effort and Inspection: able to speak in complete sentences Skin Wounds: wounds noted Debridement Note Debridement Note Post-Debridement Measurements and Additional Note: Post-Debridement Measurements/Treatment WC - Nurse 1 - General Ulcer Assessment Start: 09/18/20 11:37 Freq: Status: Active Protocol: Dragonfly ListLYNNE Activity Type Activity Date Activity User E-Sign Co-Sign Detail Recorded Client Recorded Date Recorded By Document 09/18/20 11:37 RB [id number] 09/18/20 11:46 RB Document 10/09/20 11:11 DL [id number] 10/09/20 11:27 DL 09/18/20 10/09/20 11:37 11:11 - Today's Visit Information Type of service Follow-up Visit Follow-up Visit (Physician/SALES ASSOCIATE (Physician/SALES ASSOCIATE ) ) Arrival Mode Ambulatory Wheelchair Transfer Assistance None Manual Transfer Assist (Other) x3 Patient Identification Verified (Name & Yes ) Patient Requires Transmission-Based No No Precautions Finger Stick Blood Sugar(mg/dl) (if 156 indicated): Blood Sugar Stated by Patient Height and Weight Body Mass Index (BMI) 27.8 27.8 BMI Classification Overweight Overweight Vital Signs Temperature (97.8 F-99.1 F) 97.3 F L 97.8 F Temperature Source Temporal Temporal Pulse Rate (60-100) 75 73 Pulse Location Monitor Monitor Respiratory Rate (12-18) 18 20 H Respiratory rate source Observation Observation Blood Pressure (90/60-120/80) 117/64 93/61 Blood Pressure Mean (mm Hg) 81 71 Source Monitor Monitor Position Semi-Fowlers Blood Pressure Location Left Arm History Since Last Visit- (Skip if this is Patient's initial visit) Have you changed medications since your No No last visit? Any new allergies or adverse reactions No No Had a fall/change in ADL's that may No No increase risk of falls Signs or symptoms of abuse and/or No No neglect since last visit Have you been in the hospital since your No No last visit? Has dressing in place as prescribed Yes Yes Has compression in place as prescribed No N/A Has offloadiing in place as prescribed No Yes Experienced any changes in pain level or No No management Left Footwear Regular Shoe Right Footwear Regular Shoe Pain Scale: 0-10 Numeric Is Patient Pain Free? Yes Yes WC - Nurse 1 - General Ulcer Measurement Start: 09/18/20 11:37 Freq: Status: Active Protocol: Activity Type Activity Date Activity User E-Sign Co-Sign Detail Recorded Client Recorded Date Recorded By Document 09/18/20 11:37 RB [id number] 09/18/20 11:46 RB Document 10/09/20 11:11 DL [id number] 10/09/20 11:27 DL 09/18/20 10/09/20 11:37 11:11 Wound Center Nurse 1 #13 Sacral Middle -Combined with other wound No No -Current Size (cm) - Length 1.8 0.1 -Current Size (cm) - Width 4.2 0.1 -Current Size (cm) - Depth 0.1 0.1 -Total Square Cm 7.56 0.01 -Tunneling No No -Undermining/Tunneling No No -Circular Undermining No No -Exudate Amt Medium Medium -Exudate Type Serosanguineous Serosanguineous -Wound Margin Distinct, Distinct, Outline Outline Attached Attached -Granulation Amt Medium (34-66%) Medium (34-66%) -Granulation Quality [place] -Slough/Fibrin Yes Yes -Necrosis Amt Small (1-33%) Medium (34-66%) -Necrotic Tissue Type Adherent Slough Adherent Slough -Structure Exposed N/A N/A -Texture (Sheyla-wound Skin Appearance) Assessed, Assessed, Scarring Excoriation -Moisture (Sheyla-wound Skin Appearance) Assessed Assessed -Color (Sheyla-wound Skin Appearance) Assessed Assessed -Temperature (Sheyla-wound Skin No Abnormality No Abnormality Appearance) (Pt Warm) (Pt Warm) -Tenderness on Palpation (Sheyla-wound No No Skin Appearance) -Ulcer Cleansing Wound Cleanser Wound Cleanser -Foul Odor after Cleansing No No #12 left sacral -Combined with other wound No No -Current Size (cm) - Length 4.5 4 -Current Size (cm) - Width 3 2 -Current Size (cm) - Depth 0.3 0.1 -Total Square Cm 13.5 8 -Photo Taken No -Tunneling No No -Undermining/Tunneling Yes Yes -Undermining/Tunneling Starts (O'clock 6 12 ) -Undermining/Tunneling Ends (O'clock) 10 1 -Maximum Distance (cm) 1.4 5.5 -Circular Undermining No No -Exudate Amt Medium Small -Exudate Type Serosanguineous Serosanguineous -Wound Margin Distinct, Distinct, Outline Outline Attached Attached -Granulation Amt Medium (34-66%) Medium (34-66%) -Granulation Quality [place] -Slough/Fibrin Yes -Necrosis Amt Medium (34-66%) None Present (0 %) -Necrotic Tissue Type Adherent Slough -Structure Exposed N/A N/A -Texture (Sheyla-wound Skin Appearance) Assessed, Assessed Scarring -Moisture (Sheyla-wound Skin Appearance) Assessed Assessed -Color (Sheyla-wound Skin Appearance) Assessed Assessed -Temperature (Sheyla-wound Skin No Abnormality No Abnormality Appearance) (Pt Warm) (Pt Warm) -Tenderness on Palpation (Sheyla-wound No No Skin Appearance) -Ulcer Cleansing Wound Cleanser Wound Cleanser -Foul Odor after Cleansing No No #11 right sacral -Combined with other wound No No -Current Size (cm) - Length 3.5 2 -Current Size (cm) - Width 2.3 0.5 -Current Size (cm) - Depth 0.3 0.1 -Total Square Cm 8.05 1.0 -Tunneling No No -Undermining/Tunneling No No -Circular Undermining No No -Exudate Amt Medium Small -Exudate Type Serosanguineous Serosanguineous -Wound Margin Distinct, Distinct, Outline Outline Attached Attached -Granulation Amt Medium (34-66%) Medium (34-66%) -Granulation Quality [place] -Slough/Fibrin Yes Yes -Necrosis Amt Small (1-33%) Small (1-33%) -Necrotic Tissue Type Adherent Slough Adherent Slough -Structure Exposed N/A N/A -Texture (Sheyla-wound Skin Appearance) Assessed, Assessed Fluctuance -Moisture (Sheyla-wound Skin Appearance) Assessed Assessed -Color (Sheyla-wound Skin Appearance) Assessed Assessed -Temperature (Sheyla-wound Skin No Abnormality No Abnormality Appearance) (Pt Warm) (Pt Warm) -Tenderness on Palpation (Sheyla-wound No No Skin Appearance) -Ulcer Cleansing Wound Cleanser Wound Cleanser -Foul Odor after Cleansing No No #9 R Buttocks -Combined with other wound No No -Current Size (cm) - Length 7.2 7 -Current Size (cm) - Width 3.1 4 -Current Size (cm) - Depth 1 1.5 -Total Square Cm 22.32 28 -Tunneling No No -Undermining/Tunneling No No -Circular Undermining No No -Exudate Amt Medium Large -Exudate Type Serosanguineous Serosanguineous -Wound Margin Distinct, Thickened & Outline Rolled Under Attached -Granulation Amt Medium (34-66%) Large (67-100%) -Granulation Quality [place],Red -Slough/Fibrin Yes -Necrosis Amt Small (1-33%) Small (1-33%) -Necrotic Tissue Type Adherent Slough Adherent Slough -Structure Exposed N/A N/A -Texture (Sheyla-wound Skin Appearance) Assessed, Assessed, Scarring Scarring -Moisture (Sheyla-wound Skin Appearance) Assessed Assessed -Color (Sheyla-wound Skin Appearance) Assessed Assessed -Temperature (Sheyla-wound Skin No Abnormality No Abnormality Appearance) (Pt Warm) (Pt Warm) -Tenderness on Palpation (Sheyla-wound No No Skin Appearance) -Ulcer Cleansing Wound Cleanser Wound Cleanser -Foul Odor after Cleansing No No #8 L Buttucks -Combined with other wound No No -Current Size (cm) - Length 6.5 7 -Current Size (cm) - Width 7.3 4 -Current Size (cm) - Depth 1.7 3.2 -Total Square Cm 47.45 28 -Tunneling No No -Undermining/Tunneling No No -Circular Undermining No No -Exudate Amt Medium Large -Exudate Type Serosanguineous Serosanguineous -Wound Margin Distinct, Thickened & Outline Rolled Under Attached -Granulation Amt Medium (34-66%) Medium (34-66%) -Granulation Quality [place] -Slough/Fibrin Yes Yes -Necrosis Amt Small (1-33%) Small (1-33%) -Necrotic Tissue Type Adherent Slough Adherent Slough -Structure Exposed N/A N/A -Texture (Sheyla-wound Skin Appearance) Assessed, Assessed, Scarring Scarring -Moisture (Sheyla-wound Skin Appearance) Assessed Assessed -Color (Sheyla-wound Skin Appearance) Assessed Assessed -Temperature (Sheyla-wound Skin No Abnormality No Abnormality Appearance) (Pt Warm) (Pt Warm) -Tenderness on Palpation (Sheyla-wound No No Skin Appearance) -Ulcer Cleansing Wound Cleanser Wound Cleanser -Foul Odor after Cleansing No No WC - Nurse 2 - General Ulcer CM Notes Start: 09/18/20 11:37 Freq: Status: Active Protocol: Activity Type Activity Date Activity User E-Sign Co-Sign Detail Recorded Client Recorded Date Recorded By Document 09/18/20 11:57 MW [id number] 09/18/20 12:09 MW Document 10/09/20 12:05 MW [id number] 10/09/20 12:18 MW 09/18/20 10/09/20 11:57 12:05 Wound Center Nurse 2 #13 Sacral Middle -Time 12:04 12:07 -Correct Patient Yes Yes -Correct Side, Site, Position Yes Yes -Correct Procedure Yes Yes -Procedure Performed Yes Yes -Type of Procedure Debridement Debridement -Clinical Debridement Subcutaneous Subcutaneous -Tissue Removed Subcutaneous Subcutaneous -Post Debridement (cm) - Length 1.5 2.0 -Post Debridement (cm) - Width 5.0 4.5 -Post Debridement (cm) - Depth 0.1 0.1 -Total Square (Post) (cm) 7.50 9.00 -Area of Debridement (cm) - Length 1.5 2.0 -Area of Debridement (cm) - Width 5.0 4.5 -Total Square (Area) (cm) 7.50 9.00 -Tunneling No No -Undermining/Tunneling No No -Circular Undermining No No -Wound/Ulcer Outcome Not Healed Not Healed -Ulcer Cleansing Rinsed/ Rinsed/ Irrigated with Irrigated with Saline Saline -Foul Odor after Cleansing No No -Bioengineered Tissue No No -Bleeding Controlled with Pressure Pressure -Offloading No No -Treatment Response Procedure Procedure Tolerated Well Tolerated Well -Debridement - Subq, 1st 20sq cm Yes Yes -Debridement, SubQ, ea addt'l 20sq cm 4 or part thereof #12 left sacral -Time 12:04 12:07 -Correct Patient Yes Yes -Correct Side, Site, Position Yes Yes -Correct Procedure Yes Yes -Procedure Performed Yes Yes -Type of Procedure Debridement Debridement -Clinical Debridement Subcutaneous Subcutaneous -Tissue Removed Subcutaneous Subcutaneous -Post Debridement (cm) - Length 3.5 3.5 -Post Debridement (cm) - Width 3.0 2.0 -Post Debridement (cm) - Depth 1.3 1.2 -Total Square (Post) (cm) 10.50 7.00 -Area of Debridement (cm) - Length 3.5 3.5 -Area of Debridement (cm) - Width 3.0 2.0 -Total Square (Area) (cm) 10.50 7.00 -Tunneling No No -Undermining/Tunneling No -Circular Undermining No No -Wound/Ulcer Outcome Not Healed Not Healed -Ulcer Cleansing Rinsed/ Rinsed/ Irrigated with Irrigated with Saline Saline -Foul Odor after Cleansing No No -Bioengineered Tissue No No -Bleeding Controlled with Pressure Pressure -Offloading No No -Treatment Response Procedure Tolerated Well -Debridement - Subq, 1st 20sq cm No No #11 right sacral -Time 12:05 12:07 -Correct Patient Yes Yes -Correct Side, Site, Position Yes Yes -Correct Procedure Yes Yes -Procedure Performed Yes Yes -Type of Procedure Debridement Debridement -Clinical Debridement Subcutaneous Subcutaneous -Tissue Removed Subcutaneous Subcutaneous -Post Debridement (cm) - Length 2.0 2.0 -Post Debridement (cm) - Width 1.0 0.7 -Post Debridement (cm) - Depth 1.0 0.5 -Total Square (Post) (cm) 2.00 1.40 -Area of Debridement (cm) - Length 2.0 2.0 -Area of Debridement (cm) - Width 1.0 0.7 -Total Square (Area) (cm) 2.00 1.40 -Tunneling No No -Undermining/Tunneling No No -Circular Undermining No No -Wound/Ulcer Outcome Not Healed Not Healed -Ulcer Cleansing Rinsed/ Rinsed/ Irrigated with Irrigated with Saline Saline -Foul Odor after Cleansing No No -Bioengineered Tissue No No -Bleeding Controlled with Pressure Pressure -Offloading No No -Treatment Response Procedure Procedure Tolerated Well Tolerated Well -Debridement - Subq, 1st 20sq cm No No #9 R Buttocks -Time 12:05 12:08 -Correct Patient Yes Yes -Correct Side, Site, Position Yes Yes -Correct Procedure Yes Yes -Procedure Performed Yes Yes -Type of Procedure Debridement Debridement -Clinical Debridement Subcutaneous Subcutaneous -Tissue Removed Subcutaneous Subcutaneous -Post Debridement (cm) - Length 7.5 7.4 -Post Debridement (cm) - Width 3.2 4.0 -Post Debridement (cm) - Depth 1.7 1.5 -Total Square (Post) (cm) 24.00 29.60 -Area of Debridement (cm) - Length 7.5 7.4 -Area of Debridement (cm) - Width 3.2 4.0 -Total Square (Area) (cm) 24.00 29.60 -Tunneling No No -Undermining/Tunneling No No -Circular Undermining No No -Wound/Ulcer Outcome Not Healed Not Healed -Ulcer Cleansing Rinsed/ Rinsed/ Irrigated with Irrigated with Saline Saline -Foul Odor after Cleansing No No -Bioengineered Tissue No No -Bleeding Controlled with Pressure Pressure -Offloading No No -Treatment Response Procedure Procedure Tolerated Well Tolerated Well -Debridement - Subq, 1st 20sq cm No No #8 L Buttucks -Time 12:05 12:08 -Correct Patient Yes Yes -Correct Side, Site, Position Yes Yes -Correct Procedure Yes Yes -Procedure Performed Yes Yes -Type of Procedure Debridement Debridement -Clinical Debridement Subcutaneous Subcutaneous -Tissue Removed Subcutaneous Subcutaneous -Post Debridement (cm) - Length 7.5 7.8 -Post Debridement (cm) - Width 5.0 4.0 -Post Debridement (cm) - Depth 1.8 1.8 -Total Square (Post) (cm) 37.50 31.20 -Area of Debridement (cm) - Length 7.5 7.8 -Area of Debridement (cm) - Width 5.0 4.0 -Total Square (Area) (cm) 37.50 31.20 -Tunneling No No -Undermining/Tunneling No No -Circular Undermining No No -Wound/Ulcer Outcome Not Healed Not Healed -Ulcer Cleansing Rinsed/ Rinsed/ Irrigated with Irrigated with Saline Saline -Foul Odor after Cleansing No No -Bioengineered Tissue No No -Bleeding Controlled with Pressure Pressure -Offloading No No -Treatment Response Procedure Procedure Tolerated Well Tolerated Well -Debridement - Subq, 1st 20sq cm No No Pain Scale: 0-10 Numeric Is Patient Pain Free? Yes Yes WC - Nurse 3 - General Ulcer D/C NN Start: 09/18/20 11:37 Freq: Status: Active Protocol: Activity Type Activity Date Activity User E-Sign Co-Sign Detail Recorded Client Recorded Date Recorded By Document 09/18/20 12:08 RB Desktop 09/18/20 12:12 RB Document 10/09/20 12:20 MW [id number] 10/09/20 12:23 MW 09/18/20 10/09/20 12:08 12:20 Wound Care Nurse 3 #13 Sacral Middle -Ulcer Cleansing Rinsed/ Rinsed/ Irrigated with Irrigated with Saline Saline -Foul Odor after Cleansing No -Negative Pressure Wound Therapy N/A -Other Dressing COLLAGEN, collagen, CALCIUM calcium ALGINATE alginate MEPILEX -Other Covering mepilex #12 left sacral -Ulcer Cleansing Rinsed/ Rinsed/ Irrigated with Irrigated with Saline Saline -Foul Odor after Cleansing No -Negative Pressure Wound Therapy N/A -Other Dressing COLLAGEN, collagen, CALCIUM calcium ALGINATE, alginate MEPILEX -Other Covering mepliex #11 right sacral -Ulcer Cleansing Rinsed/ Rinsed/ Irrigated with Irrigated with Saline Saline -Foul Odor after Cleansing No -Negative Pressure Wound Therapy N/A -Other Dressing COLLAGEN, collagen, CLCIUM ALGINAE, calcium MEPILEX alginate -Other Covering mepilex #9 R Buttocks -Ulcer Cleansing Rinsed/ Rinsed/ Irrigated with Irrigated with Saline Saline -Foul Odor after Cleansing No -Negative Pressure Wound Therapy Start -Setting (mmHg) 150 -Negative Pressure is Continuous -Other Dressing COLLAGEN, black foam CALCIUM ALINATE , ISLAND DRESSING OR MEPILEX -NPWT Application Charge ($) NPWT </= 50 sq cm #8 L Buttucks -Ulcer Cleansing Rinsed/ Rinsed/ Irrigated with Irrigated with Saline Saline -Foul Odor after Cleansing No -Negative Pressure Wound Therapy N/A -Other Dressing COLLAGEN, collagen, CALCIUM ALGINTE calcium , ISLAND alginate MEPILEX -Other Covering mepilex Treatment Response Procedure Procedure Tolerated Well Tolerated Well Pain Scale: 0-10 Numeric Is Patient Pain Free? Yes Yes Teaching: Wound Center Dressing Your Wound -Person Taught Patient -Teaching Method Discussion, Demonstration -Response to teaching Verbalize understanding WC - Visit Discharge Discharge Condition Stable Stable Ambulatory Status Wheelchair Wheelchair Transportation Private Auto Private Auto Accompanied by caregiver Medication Reconcilliation completed & No No provided to patient/care provider Clinical Summary of Care Provided Yes Yes Wound debrided: Sacral (left) Type of Debridement: Excisional debridement Anesthesia Used: 4% Lidocaine Solution Depth: Down to and including healthy tissue Percentage of wound debrided: 100 Instrument Used: 5mm curette Tissue Removed: Slough and devitalized tissue Severity: Fat Layer Exposed Amount of bleeding with debridement: Mild Bleeding Controlled with: Pressure Patient tolerated procedure: Patient tolerated procedure well Additional Wound Wound debrided: Sacral (medial) Type of Debridement: Selective debridement Anesthesia Used: 4% Lidocaine Solution Depth: Down to and including healthy tissue Percentage of wound debrided: 100 Instrument Used: 5mm curette Tissue Removed: Slough and devitalized tissue Severity: Limited To Skin Breakdown Amount of bleeding with debridement: Mild Bleeding Controlled with: Pressure Patient tolerated procedure: Patient tolerated procedure well Additional Wound Wound debrided: Sacral (right) Type of Debridement: Excisional debridement Anesthesia Used: 4% Lidocaine Solution Depth: Down to and including healthy tissue and in the subcutaneous layer Percentage of wound debrided: 100 Instrument Used: 5mm curette Tissue Removed: Slough and devitalized tissue Severity: Fat Layer Exposed Amount of bleeding with debridement: Mild Bleeding Controlled with: Pressure Patient tolerated procedure: Patient tolerated procedure well Additional Wound Wound debrided: Left buttock Type of Debridement: Excisional debridement Anesthesia Used: 4% Lidocaine Solution Depth: Down to and including healthy tissue Percentage of wound debrided: 100 Instrument Used: 5mm curette Tissue Removed: Slough and devitalized tissue Severity: Fat Layer Exposed Amount of bleeding with debridement: Mild Bleeding Controlled with: Pressure Patient tolerated procedure: Patient tolerated procedure well Additional Wound Wound debrided: Right buttock Type of Debridement: Excisional debridement Depth: Down to and including healthy tissue and in the subcutaneous layer Percentage of wound debrided: 100 Instrument Used: 5mm curette Tissue Removed: Slough and devitalized tissue Severity: Fat Layer Exposed Amount of bleeding with debridement: Mild Bleeding Controlled with: Pressure Patient tolerated procedure: Patient tolerated procedure well Assessment/Plan Assessment/Plan (1) Sacral decubitus ulcer, stage IV: CODE(S): L89.154 - Pressure ulcer of sacral region, stage 4 (2) Decubitus ulcer of right buttock, stage 4: CODE(S): L89.314 - Pressure ulcer of right buttock, stage 4 (3) Decubitus ulcer of left buttock, stage 4: CODE(S): L89.324 - Pressure ulcer of left buttock, stage 4 (4) Chronic osteomyelitis involving pelvic region and thigh: CODE(S): M86.659 - Other chronic osteomyelitis, unspecified thigh (5) Paraplegia: CODE(S): G82.20 - Paraplegia, unspecified PLAN: Debridement done as documented above, procedure well-tolerated. No new concerns at this time. Continue wound VAC to right buttock however increased to 150 mmHg. Change every other day by home health. Continue 10 minute Acetic acid soak to sacral and left buttock ulcers, then calcium algin ate/collagen dressing. Change daily to twice daily depending on drainage. Continue optimal dietary and protein intake. Offloading been strongly recommended. His questions were answered and they were advised to call with any further questions or concerns. Follow up in 2 weeks Per patient preference. This note was generated with invendo medical dictation software. It may contain incorrect words, spelling, and punctuation that were not noted in checking the note before signing. Follow-up in 2 weeks per patient preference This note was generated with [employer]endo medical dictation software. It may contain incorrect words, spelling, and punctuation that were not noted in checking the note before signing.
== END 2020-10-11 23:59 ==
LOC: WC 11:00
PROVIDERS: PCP Internal Medicine; Visit Provider Internal Medicine
DX: L89.154 Pressure ulcer of sacral region, stage 4 (principal); L89.314 Pressure ulcer of right buttock, stage 4; L89.324 Pressure ulcer of left buttock, stage 4; M86.69 Other chronic osteomyelitis, multiple sites; G82.20 Paraplegia, unspecified; E66.3 Overweight; Z68.27 Body mass index [BMI] 27.0-27.9, adult; Z79.899 Other long term (current) drug therapy
CPT/HCPCS: 11042; 11045; 87070; 87075; 87077; 87186; 87205; 97605

== ENCOUNTER 2020-11-06 11:00 | Outpatient (RCR) | payer OTHER, SELFPAY ==
[2020-10-12 00:23] VITALS: BP 93/61; PULSE 73; RESP 20; TEMP 36.6
[2020-11-06 10:55] VITALS: BP 100/67; PULSE 70; RESP 20; TEMP 36.5; BMI 27.8
== END 2020-11-11 23:59 ==
LOC: WC 11:00
PROVIDERS: PCP Internal Medicine; Visit Provider Internal Medicine
DX: Z09 Encounter for follow-up examination after completed treatment for conditions other than malignant neoplasm (principal)
CPT/HCPCS: 11042; 11045

== ENCOUNTER 2020-12-11 11:00 | Outpatient (RCR) | payer OTHER, SELFPAY ==
[2020-11-12 00:27] VITALS: BP 100/67; PULSE 70; RESP 20; TEMP 36.5; BMI 27.8
[2020-11-27 10:54] VITALS: BP 104/55; PULSE 88; BMI 27.8
--- NOTE | 2020-11-27 13:26 | PN.PCM_ITS ---
History of Present Illness Date of Service: 11/27/20 Chief Complaint: Non healing, chronic decubitus pressure ulcers, stage IV, with osteomyelitis - thigh, buttock, sacrum. History of Wound: Mr. Joyce is a 33yo well known to the wound center but was last seen here over a month ago. Initial sacral ulcer was said to have started in November and Buttock ulcers were noted subsequently. He has had an extensive hospital stay over the last couple of months following a work related injury. Both during his hopsital and long term stays, he had wound care ranging from surgical debridement, wound vac and collagen use. He was scheduled to be restarted on his wound Vac prior to his discharge from the [place]. He reports significant drainage from the wounds. Also of note is a history of osteomyelitis for which he was on a 6 week IV antibiotic. His however states they were informed that he had developed chronic extensive pelvic area osteomyelitis. He feels well otherwise at this time and denies chills, fever,nausea, vomitting or change in bowel habit. 02/22/2019: Above, he was last seen here over a month ago. Had an extensive hospital stay [facility] due to complications from prior neck surgery. They state that his ulcers have been stable. Been doing the acetic a kelly soak for 10 minutes and then calcium alginate/collagen dressings. Denies any concerns at this time. Subjective Subjective No new concerns at this time. Has had a wound VAC to his right buttock ulcer for weeks now and there has not been any significant improvement. Patient will like to try holiday. Objective Data Objective Data Vital Signs: Vital Signs Temp Pulse Resp BP 97.7 F L 88 20 H 104/55 L 11/12/20 00:27 11/27/20 10:54 11/12/20 00:27 11/27/20 10:54 Body Mass Index (BMI) 27.8 Charges/Coding Procedures Integumentary 111xxx-113xx: 81537 Oxana subq tissue 20 sq cm/< Add On Codes: 01298 Oxana subq tissue add-on (Additional square centimeter debrided, please refer to clinical note.) Physical Exam Const alert and oriented x3 General Appearance: cooperative and comfortable HEENT normocephalic and hearing grossly normal bilaterally Head and Scalp: normal to inspection and normocephalic Neck full ROM and supple Resp normal respiratory effort Effort and Inspection: able to speak in complete sentences Skin Wounds: wounds noted Debridement Note Debridement Note Wound debrided: Left sacral Type of Debridement: Excisional debridement Anesthesia Used: 4% Lidocaine Solution Depth: Down to and including healthy tissue and in the subcutaneous layer Percentage of wound debrided: 100 Instrument Used: 5mm curette Tissue Removed: Slough and devitalized tissue Severity: Fat Layer Exposed Amount of bleeding with debridement: Mild Bleeding Controlled with: Pressure Patient tolerated procedure: Patient tolerated procedure well Post-Debridement Measurements and Additional Note: Post-Debridement Measurements/Treatment - Nurse 1 - General Ulcer Assessment Start: 11/27/20 10:53 Freq: Status: Active Protocol: JUDITH Activity Type Activity Date Activity User E-Sign Co-Sign Detail Recorded Client Recorded Date Recorded By Document 11/27/20 10:54 [facility] [id number] 11/27/20 11:09 [facility] 11/27/20 10:54 - Today's Visit Information Type of service Follow-up Visit (Physician/MEDICAL BILLING ASSOCIATE ) Arrival Mode Wheelchair Patient Identification Verified (Name & Yes ) Height and Weight Body Mass Index (BMI) 27.8 BMI Classification Overweight Vital Signs Temperature Source Temporal Pulse Rate (60-100) 88 Pulse Location Monitor Blood Pressure (90/60-120/80) 104/55 L Blood Pressure Mean (mm Hg) 71 Source Monitor Position Semi-Fowlers Blood Pressure Location Right Arm History Since Last Visit- (Skip if this is Patient's initial visit) Have you changed medications since your No last visit? Any new allergies or adverse reactions No Had a fall/change in ADL's that may No increase risk of falls Signs or symptoms of abuse and/or No neglect since last visit Have you been in the hospital since your No last visit? Has dressing in place as prescribed Yes Has compression in place as prescribed N/A Has offloadiing in place as prescribed N/A Experienced any changes in pain level or No management Left Footwear Regular Shoe Right Footwear Regular Shoe Pain Scale: 0-10 Numeric Is Patient Pain Free? Yes [facility] Nurse 1 - General Ulcer Measurement Start: 11/27/20 10:53 Freq: Status: Active Protocol: Activity Type Activity Date Activity User E-Sign Co-Sign Detail Recorded Client Recorded Date Recorded By Document 11/27/20 10:54 [facility] [id number] 11/27/20 11:09 [facility] 11/27/20 10:54 [facility] Nurse 1 #13 Sacral Middle -Current Size (cm) - Length 0.1 -Current Size (cm) - Width 0.1 -Current Size (cm) - Depth 0.1 -Total Square Cm 0.01 -Exudate Amt None Present -Wound Margin Distinct, Outline Attached -Granulation Amt Medium (34-66%) -Granulation Quality Hyper- granulation -Necrosis Amt None Present (0 %) -Texture (Sheyla-wound Skin Appearance) Assessed, Scarring -Moisture (Sheyla-wound Skin Appearance) No Abnormality, Assessed -Color (Sheyla-wound Skin Appearance) No Abnormality, Assessed -Temperature (Sheyla-wound Skin No Abnormality Appearance) (Pt Warm) -Tenderness on Palpation (Sheyla-wound No Skin Appearance) -Ulcer Cleansing SOAP AND WATER #12 left sacral -Current Size (cm) - Length 4 -Current Size (cm) - Width 1.7 -Current Size (cm) - Depth 0.2 -Total Square Cm 6.8 -Undermining/Tunneling Starts (O'clock 12 ) -Maximum Distance (cm) 3.4 -Exudate Amt Medium -Exudate Type Serosanguineous -Wound Margin Distinct, Outline Attached -Granulation Amt Large (67-100%) -Granulation Quality Belt -Necrosis Amt None Present (0 %) -Texture (Sheyla-wound Skin Appearance) Assessed, Scarring -Moisture (Sheyla-wound Skin Appearance) No Abnormality, Assessed -Color (Sheyla-wound Skin Appearance) No Abnormality, Assessed -Temperature (Sheyla-wound Skin No Abnormality Appearance) (Pt Warm) -Tenderness on Palpation (Sheyla-wound No Skin Appearance) -Ulcer Cleansing SOAP AND WATER #11 right sacral -Current Size (cm) - Length 1.1 -Current Size (cm) - Width 0.4 -Current Size (cm) - Depth 0.3 -Total Square Cm 0.44 -Exudate Amt Small -Exudate Type Serosanguineous -Wound Margin Distinct, Outline Attached -Granulation Amt Large (67-100%) -Granulation Quality Red -Necrosis Amt None Present (0 %) -Texture (Sheyla-wound Skin Appearance) Assessed, Scarring -Moisture (Sheyla-wound Skin Appearance) No Abnormality, Assessed -Color (Sheyla-wound Skin Appearance) No Abnormality, Assessed -Temperature (Sheyla-wound Skin No Abnormality Appearance) (Pt Warm) -Tenderness on Palpation (Sheyla-wound No Skin Appearance) -Ulcer Cleansing soap and water -Foul Odor after Cleansing No #9 R Buttocks -Current Size (cm) - Length 7 -Current Size (cm) - Width 3.5 -Current Size (cm) - Depth 1.1 -Total Square Cm 24.5 -Undermining/Tunneling Starts (O'clock 1 ) -Undermining/Tunneling Ends (O'clock) 5 -Maximum Distance (cm) 2 -Exudate Amt None Present -Wound Margin Distinct, Outline Attached -Granulation Amt Large (67-100%) -Granulation Quality Belt -Necrosis Amt None Present (0 %) -Texture (Sheyla-wound Skin Appearance) Assessed -Moisture (Sheyla-wound Skin Appearance) No Abnormality, Assessed -Color (Sheyla-wound Skin Appearance) No Abnormality, Assessed -Temperature (Sheyla-wound Skin No Abnormality Appearance) (Pt Warm) -Tenderness on Palpation (Sheyla-wound No Skin Appearance) -Ulcer Cleansing soap and water -Foul Odor after Cleansing No #8 L Buttucks -Current Size (cm) - Length 7.2 -Current Size (cm) - Width 3.8 -Current Size (cm) - Depth 1.5 -Total Square Cm 27.36 -Exudate Amt None Present -Wound Margin Distinct, Outline Attached -Granulation Amt Large (67-100%) -Granulation Quality Red -Necrosis Amt None Present (0 %) -Texture (Sheyla-wound Skin Appearance) No Abnormality, Assessed,Rash -Moisture (Sheyla-wound Skin Appearance) No Abnormality, Assessed -Color (Sheyla-wound Skin Appearance) No Abnormality, Assessed -Temperature (Sheyla-wound Skin No Abnormality Appearance) (Pt Warm) -Tenderness on Palpation (Sheyla-wound No Skin Appearance) -Ulcer Cleansing soap and water WC - Nurse 2 - General Ulcer CM Notes Start: 11/27/20 10:53 Freq: Status: Active Protocol: Activity Type Activity Date Activity User E-Sign Co-Sign Detail Recorded Client Recorded Date Recorded By Document 11/27/20 11:26 [facility] [id number] 11/27/20 11:38 MW 11/27/20 11:26 Wound Center Nurse 2 #13 Sacral Middle -Time 11:31 -Correct Patient Yes -Correct Side, Site, Position Yes -Correct Procedure Yes -Procedure Performed No -Post Debridement (cm) - Length 0 -Post Debridement (cm) - Width 0 -Post Debridement (cm) - Depth 0 -Total Square (Post) (cm) 0 -Tunneling No -Undermining/Tunneling No -Circular Undermining No -Wound/Ulcer Outcome Healed- Epithelialized #12 left sacral -Time 11:32 -Correct Patient Yes -Correct Side, Site, Position Yes -Correct Procedure Yes -Procedure Performed Yes -Type of Procedure Debridement -Clinical Debridement Subcutaneous -Tissue Removed Subcutaneous -Post Debridement (cm) - Length 2.0 -Post Debridement (cm) - Width 1.6 -Post Debridement (cm) - Depth 0.1 -Total Square (Post) (cm) 3.20 -Area of Debridement (cm) - Length 2.0 -Area of Debridement (cm) - Width 1.6 -Total Square (Area) (cm) 3.20 -Tunneling No -Undermining/Tunneling No -Circular Undermining No -Wound/Ulcer Outcome Not Healed -Ulcer Cleansing Rinsed/ Irrigated with Saline -Foul Odor after Cleansing No -Bioengineered Tissue No -Bleeding Controlled with Pressure -Offloading No -Treatment Response Procedure Tolerated Well -Debridement - Subq, 1st 20sq cm Yes -Debridement, SubQ, ea addt'l 20sq cm 3 or part thereof #11 right sacral -Time 11:35 -Correct Patient Yes -Correct Side, Site, Position Yes -Correct Procedure Yes -Procedure Performed Yes -Type of Procedure Debridement -Clinical Debridement Subcutaneous -Tissue Removed Subcutaneous -Post Debridement (cm) - Length 1.3 -Post Debridement (cm) - Width 0.5 -Post Debridement (cm) - Depth 0.1 -Total Square (Post) (cm) 0.65 -Area of Debridement (cm) - Length 1.3 -Area of Debridement (cm) - Width 0.5 -Total Square (Area) (cm) 0.65 -Tunneling No -Undermining/Tunneling No -Circular Undermining No -Wound/Ulcer Outcome Not Healed -Ulcer Cleansing Rinsed/ Irrigated with Saline -Foul Odor after Cleansing No -Bioengineered Tissue No -Bleeding Controlled with Pressure -Offloading No -Treatment Response Procedure Tolerated Well -Debridement - Subq, 1st 20sq cm No #9 R Buttocks -Time 11:35 -Correct Patient Yes -Correct Side, Site, Position Yes -Correct Procedure Yes -Procedure Performed Yes -Type of Procedure Debridement -Clinical Debridement Subcutaneous -Tissue Removed Subcutaneous -Post Debridement (cm) - Length 7.5 -Post Debridement (cm) - Width 5.0 -Post Debridement (cm) - Depth 1.5 -Total Square (Post) (cm) 37.50 -Area of Debridement (cm) - Length 7.5 -Area of Debridement (cm) - Width 5.0 -Total Square (Area) (cm) 37.50 -Tunneling No -Undermining/Tunneling No -Circular Undermining No -Wound/Ulcer Outcome Not Healed -Ulcer Cleansing Rinsed/ Irrigated with Saline -Foul Odor after Cleansing No -Bioengineered Tissue No -Bleeding Controlled with Pressure -Offloading No -Debridement - Open, 1st 20sq cm No -Debridement - Subq, 1st 20sq cm No #8 L Buttucks -Time 11:36 -Correct Patient Yes -Correct Side, Site, Position Yes -Correct Procedure Yes -Procedure Performed Yes -Type of Procedure Debridement -Clinical Debridement Subcutaneous -Tissue Removed Subcutaneous -Post Debridement (cm) - Length 7.4 -Post Debridement (cm) - Width 5.0 -Post Debridement (cm) - Depth 1.7 -Total Square (Post) (cm) 37.00 -Area of Debridement (cm) - Length 7.4 -Area of Debridement (cm) - Width 5.0 -Total Square (Area) (cm) 37.00 -Tunneling No -Undermining/Tunneling No -Circular Undermining No -Wound/Ulcer Outcome Not Healed -Ulcer Cleansing Rinsed/ Irrigated with Saline -Foul Odor after Cleansing No -Bioengineered Tissue No -Bleeding Controlled with Pressure -Offloading No -Debridement - Subq, 1st 20sq cm No Pain Scale: 0-10 Numeric Is Patient Pain Free? Yes WC - Nurse 3 - General Ulcer D/C NN Start: 11/27/20 10:53 Freq: Status: Active Protocol: Activity Type Activity Date Activity User E-Sign Co-Sign Detail Recorded Client Recorded Date Recorded By Document 11/27/20 11:43 [facility] [id number] 11/27/20 11:45 [facility] 11/27/20 11:43 Wound Care Nurse 3 #12 left sacral -Primary Dressing Applied Other -Other Dressing pts nurse applied collagen drsg w / border drsg #11 right sacral -Primary Dressing Applied Other -Other Dressing pts nurse applied collagen w/ border drsg #9 R Buttocks -Primary Dressing Applied Other -Other Dressing pts nurse applied collagen and border drsg #8 L Buttucks -Primary Dressing Applied Other -Other Dressing pts nurse applied collagen and border drsg Treatment Response Procedure Tolerated Well Pain Scale: 0-10 Numeric Is Patient Pain Free? Yes WC - Visit Discharge Discharge Condition Stable Ambulatory Status Wheelchair Transportation Private Auto Accompanied by personal nurse Facility Type Home Health Additional Wound Wound debrided: Right sacral Type of Debridement: Excisional debridement Anesthesia Used: 4% Lidocaine Solution Depth: Down to and including healthy tissue and in the subcutaneous layer Percentage of wound debrided: 100 Instrument Used: 5mm curette Tissue Removed: Slough and devitalized tissue Severity: Fat Layer Exposed Amount of bleeding with debridement: Mild Bleeding Controlled with: Pressure Patient tolerated procedure: Patient tolerated procedure well Additional Wound Wound debrided: Left buttock Type of Debridement: Excisional debridement Anesthesia Used: 4% Lidocaine Solution Depth: Down to and including healthy tissue and in the subcutaneous layer Percentage of wound debrided: 100 Instrument Used: 5mm curette Tissue Removed: Slough and devitalized tissue Severity: Fat Layer Exposed Amount of bleeding with debridement: Mild Bleeding Controlled with: Pressure Patient tolerated procedure: Patient tolerated procedure well Additional Wound Wound debrided: Right buttock Type of Debridement: Excisional debridement Anesthesia Used: 4% Lidocaine Solution Depth: Down to and including healthy tissue and in the subcutaneous layer Percentage of wound debrided: 100 Instrument Used: 5mm curette Tissue Removed: Slough and devitalized tissue Severity: Fat Layer Exposed Amount of bleeding with debridement: Mild Bleeding Controlled with: Pressure Patient tolerated procedure: Patient tolerated procedure well Assessment/Plan Assessment/Plan (1) Sacral decubitus ulcer, stage IV: CODE(S): L89.154 - Pressure ulcer of sacral region, stage 4 (2) Decubitus ulcer of right buttock, stage 4: CODE(S): L89.314 - Pressure ulcer of right buttock, stage 4 (3) Decubitus ulcer of left buttock, stage 4: CODE(S): L89.324 - Pressure ulcer of left buttock, stage 4 (4) Chronic osteomyelitis involving pelvic region and thigh: CODE(S): M86.659 - Other chronic osteomyelitis, unspecified thigh (5) Paraplegia: CODE(S): G82.20 - Paraplegia, unspecified PLAN: Debridement done as documented above, procedure well-tolerated. No new concerns at this time. Truly there has been no significant improvement to the right buttock ulcer on the wound VAC. We will hold and reassess at next visit. Continue 10 minute Acetic acid soak to all ulcers,then calcium alginate/collagen dressing. Change daily to twice daily depending on drainage. May apply Adaptic to the healed portion of the sacral. Continue optimal dietary and protein intake. Offloading strongly recommended. His questions were answered and they were advised to call with any further questions or concerns. Follow up in 2 weeks Per patient preference. This note was generated with [employer] dictation software. It may contain incorrect words, spelling, and punctuation that were not noted in checking the note before signing. This note was generated with [employer] dictation software. It may contain incorrect words, spelling, and punctuation that were not noted in checking the note before signing.
[2020-12-11 11:07] VITALS: BP 128/74; PULSE 67; TEMP 36.2; BMI 27.8
--- NOTE | 2020-12-11 13:14 | PCM.WC.PN ---
History of Present Illness Date of Service: 12/11/20 Chief Complaint: Non healing, chronic decubitus pressure ulcers, stage IV, with osteomyelitis - thigh, buttock, sacrum. History of Wound: Mr. Joyce is a 33yo well known to the wound center but was last seen here over a month ago. Initial sacral ulcer was said to have started in November and Buttock ulcers were noted subsequently. He has had an extensive hospital stay over the last couple of months following a work related injury. Both during his hopsital and long term stays, he had wound care ranging from surgical debridement, wound vac and collagen use. He was scheduled to be restarted on his wound Vac prior to his discharge from the ID. He reports significant drainage from the wounds. Also of note is a history of osteomyelitis for which he was on a 6 week IV antibiotic. His however states they were informed that he had developed chronic extensive pelvic area osteomyelitis. He feels well otherwise at this time and denies chills, fever,nausea, vomitting or change in bowel habit. 02/22/2019: Above, he was last seen here over a month ago. Had an extensive hospital stay [facility] due to complications from prior neck surgery. They state that his ulcers have been stable. Been doing the acetic acid soak for 10 minutes and then calcium alginate/collagen dressings. Denies any concerns at this time. Subjective Subjective No new concerns at this time. Has had a Vac Holiday for 2 weeks. Objective Data Objective Data Vital Signs: Vital Signs Temp Pulse Resp BP 97.1 F L 67 20 H 128/74 H 12/11/20 11:07 12/11/20 11:07 11/12/20 00:27 12/11/20 11:07 Body Mass Index (BMI) 27.8 Charges/Coding Procedures Integumentary 111xxx-113xx: 15190 Oxana subq tissue 20 sq cm/< Add On Codes: 50849 Oxana subq tissue add-on (x3 additional square centimeter debrided, please refer to clinical note.) Physical Exam Const alert and oriented x3 General Appearance: cooperative and comfortable HEENT normocephalic and hearing grossly normal bilaterally Head and Scalp: normal to inspection and normocephalic Neck full ROM and supple Resp normal respiratory effort Effort and Inspection: able to speak in complete sentences Skin Wounds: wounds noted Debridement Note Debridement Note Wound debrided: Left sacral Type of Debridement: Excisional debridement Anesthesia Used: 4% Lidocaine Solution Depth: Down to and including healthy tissue and in the subcutaneous layer Percentage of wound debrided: 100 Instrument Used: 7mm curette Tissue Removed: Slough and devitalized tissue Severity: Fat Layer Exposed Amount of bleeding with debridement: Mild Bleeding Controlled with: Pressure Patient tolerated procedure: Patient tolerated procedure well Post-Debridement Measurements and Additional Note: Post-Debridement Measurements/Treatment - Nurse 1 - General Ulcer Assessment Start: 11/27/20 10:53 Freq: Status: Active Protocol: [email or web address] Activity Type Activity Date Activity User E-Sign Co-Sign Detail Recorded Client Recorded Date Recorded By Document 11/27/20 10:54 [facility] [id number] 11/27/20 11:09 [facility] Document 12/11/20 11:07 [place] [id number] 12/11/20 11:24 [place] 11/27/20 12/11/20 10:54 11:07 - Today's Visit Information Type of service Follow-up Visit Follow-up Visit (Physician/NEUROUROLOGIST (Physician/NEUROUROLOGIST ) ) Arrival Mode Wheelchair Wheelchair Arrival Mode (Other) 2 assist Transfer Assistance Whit Lift Patient Identification Verified (Name & Yes Yes ) Patient Requires Transmission-Based No Precautions Safety Precautions NA Height and Weight Body Mass Index (BMI) 27.8 27.8 BMI Classification Overweight Overweight Vital Signs Temperature (97.8 F-99.1 F) 97.1 F L Temperature Source Temporal Temporal Pulse Rate (60-100) 88 67 Pulse Location Monitor Monitor Blood Pressure (90/60-120/80) 104/55 L 128/74 H Blood Pressure Mean (mm Hg) 71 92 Source Monitor Position Semi-Fowlers Blood Pressure Location Right Arm History Since Last Visit- (Skip if this is Patient's initial visit) Have you changed medications since your No No last visit? Any new allergies or adverse reactions No No Had a fall/change in ADL's that may No No increase risk of falls Signs or symptoms of abuse and/or No No neglect since last visit Have you been in the hospital since your No No last visit? Has dressing in place as prescribed Yes Yes Has compression in place as prescribed N/A N/A Has offloadiing in place as prescribed N/A N/A Experienced any changes in pain level or No No management Left Footwear Regular Shoe Regular Shoe Right Footwear Regular Shoe Regular Shoe Pain Scale: 0-10 Numeric Is Patient Pain Free? Yes Yes WC - Nurse 1 - General Ulcer Measurement Start: 11/27/20 10:53 Freq: Status: Active Protocol: Activity Type Activity Date Activity User E-Sign Co-Sign Detail Recorded Client Recorded Date Recorded By Document 11/27/20 10:54 [facility] [id number] 11/27/20 11:09 [facility] Document 12/11/20 11:07 [place] [id number] 12/11/20 11:24 [place] 11/27/20 12/11/20 10:54 11:07 Wound Center Nurse 1 #13 Sacral Middle -Current Size (cm) - Length 0.1 -Current Size (cm) - Width 0.1 -Current Size (cm) - Depth 0.1 -Total Square Cm 0.01 -Exudate Amt None Present -Wound Margin Distinct, Outline Attached -Granulation Amt Medium (34-66%) -Granulation Quality Hyper- granulation -Necrosis Amt None Present (0 %) -Texture (Sheyla-wound Skin Appearance) Assessed, Scarring -Moisture (Sheyla-wound Skin Appearance) No Abnormality, Assessed -Color (Sheyla-wound Skin Appearance) No Abnormality, Assessed -Temperature (Sheyla-wound Skin No Abnormality Appearance) (Pt Warm) -Tenderness on Palpation (Sheyla-wound No Skin Appearance) -Ulcer Cleansing SOAP AND WATER #12 left sacral -Current Size (cm) - Length 4 3 -Current Size (cm) - Width 1.7 0.4 -Current Size (cm) - Depth 0.2 0.2 -Total Square Cm 6.8 1.2 -Undermining/Tunneling Starts (O'clock 12 ) -Maximum Distance (cm) 3.4 -Exudate Amt Medium Small -Exudate Type Serosanguineous Serosanguineous -Wound Margin Distinct, Thickened & Outline Rolled Under Attached -Granulation Amt Large (67-100%) Large (67-100%) -Granulation Quality [facility] -Necrosis Amt None Present (0 None Present (0 %) %) -Texture (Sheyla-wound Skin Appearance) Assessed, Assessed, Scarring Scarring -Moisture (Sheyla-wound Skin Appearance) No Abnormality, No Abnormality, Assessed Assessed -Color (Sheyla-wound Skin Appearance) No Abnormality, No Abnormality, Assessed Assessed -Temperature (Sheyla-wound Skin No Abnormality No Abnormality Appearance) (Pt Warm) (Pt Warm) -Tenderness on Palpation (Sheyla-wound No No Skin Appearance) -Ulcer Cleansing SOAP AND WATER Soap and Water #11 right sacral -Current Size (cm) - Length 1.1 6.7 -Current Size (cm) - Width 0.4 1.6 -Current Size (cm) - Depth 0.3 1 -Total Square Cm 0.44 10.72 -Exudate Amt Small Medium -Exudate Type Serosanguineous Serosanguineous -Wound Margin Distinct, Thickened & Outline Rolled Under Attached -Granulation Amt Large (67-100%) Large (67-100%) -Granulation Quality Red Red -Necrosis Amt None Present (0 None Present (0 %) %) -Texture (Sheyla-wound Skin Appearance) Assessed, Assessed, Scarring Scarring -Moisture (Sheyla-wound Skin Appearance) No Abnormality, No Abnormality, Assessed Assessed -Color (Sheyla-wound Skin Appearance) No Abnormality, No Abnormality, Assessed Assessed -Temperature (Sheyla-wound Skin No Abnormality No Abnormality Appearance) (Pt Warm) (Pt Warm) -Tenderness on Palpation (Sheyla-wound No No Skin Appearance) -Ulcer Cleansing soap and water Soap and Water -Foul Odor after Cleansing No No #9 R Buttocks -Current Size (cm) - Length 7 7 -Current Size (cm) - Width 3.5 3.6 -Current Size (cm) - Depth 1.1 1.4 -Total Square Cm 24.5 25.2 -Undermining/Tunneling Starts (O'clock 1 ) -Undermining/Tunneling Ends (O'clock) 5 -Maximum Distance (cm) 2 -Exudate Amt None Present Medium -Exudate Type Serosanguineous -Wound Margin Distinct, Thickened & Outline Rolled Under Attached -Granulation Amt Large (67-100%) Large (67-100%) -Granulation Quality [facility] Red -Necrosis Amt None Present (0 None Present (0 %) %) -Texture (Sheyla-wound Skin Appearance) Assessed Assessed, Scarring -Moisture (Sheyla-wound Skin Appearance) No Abnormality, No Abnormality, Assessed Assessed -Color (Sheyla-wound Skin Appearance) No Abnormality, No Abnormality, Assessed Assessed -Temperature (Sheyla-wound Skin No Abnormality No Abnormality Appearance) (Pt Warm) (Pt Warm) -Tenderness on Palpation (Sheyla-wound No No Skin Appearance) -Ulcer Cleansing soap and water Soap and Water -Foul Odor after Cleansing No No #8 L Buttucks -Current Size (cm) - Length 7.2 7.5 -Current Size (cm) - Width 3.8 4.6 -Current Size (cm) - Depth 1.5 1.5 -Total Square Cm 27.36 34.50 -Exudate Amt None Present Medium -Exudate Type Serosanguineous -Wound Margin Distinct, Thickened & Outline Rolled Under Attached -Granulation Amt Large (67-100%) Large (67-100%) -Granulation Quality Red Red -Necrosis Amt None Present (0 Medium (34-66%) %) -Necrotic Tissue Type Adherent Slough -Structure Exposed Fat Layer Exposed -Texture (Sheyla-wound Skin Appearance) No Abnormality, Assessed, Assessed,Rash Scarring -Moisture (Sheyla-wound Skin Appearance) No Abnormality, No Abnormality, Assessed Assessed -Color (Sheyla-wound Skin Appearance) No Abnormality, No Abnormality, Assessed Assessed -Temperature (Sheyla-wound Skin No Abnormality No Abnormality Appearance) (Pt Warm) (Pt Warm) -Tenderness on Palpation (Hseyla-wound No No Skin Appearance) -Ulcer Cleansing soap and water Soap and Water -Foul Odor after Cleansing No WC - Nurse 2 - General Ulcer CM Notes Start: 11/27/20 10:53 Freq: Status: Active Protocol: Activity Type Activity Date Activity User E-Sign Co-Sign Detail Recorded Client Recorded Date Recorded By Document 11/27/20 11:26 MW [id number] 11/27/20 11:38 MW Document 12/11/20 12:05 MW [id number] 12/11/20 12:13 MW 11/27/20 12/11/20 11:26 12:05 Wound Center Nurse 2 #13 Sacral Middle -Time 11:31 -Correct Patient Yes -Correct Side, Site, Position Yes -Correct Procedure Yes -Procedure Performed No -Post Debridement (cm) - Length 0 -Post Debridement (cm) - Width 0 -Post Debridement (cm) - Depth 0 -Total Square (Post) (cm) 0 -Tunneling No -Undermining/Tunneling No -Circular Undermining No -Wound/Ulcer Outcome Healed- Epithelialized #12 left sacral -Time 11:32 12:05 -Correct Patient Yes Yes -Correct Side, Site, Position Yes Yes -Correct Procedure Yes Yes -Procedure Performed Yes Yes -Type of Procedure Debridement Debridement -Clinical Debridement Subcutaneous Subcutaneous -Tissue Removed Subcutaneous Subcutaneous -Post Debridement (cm) - Length 2.0 3.5 -Post Debridement (cm) - Width 1.6 1.5 -Post Debridement (cm) - Depth 0.1 0.1 -Total Square (Post) (cm) 3.20 5.25 -Area of Debridement (cm) - Length 2.0 3.5 -Area of Debridement (cm) - Width 1.6 1.5 -Total Square (Area) (cm) 3.20 5.25 -Tunneling No No -Undermining/Tunneling No No -Circular Undermining No No -Wound/Ulcer Outcome Not Healed Not Healed -Ulcer Cleansing Rinsed/ Rinsed/ Irrigated with Irrigated with Saline Saline -Foul Odor after Cleansing No No -Bioengineered Tissue No No -Bleeding Controlled with Pressure Pressure -Offloading No No -Treatment Response Procedure Procedure Tolerated Well Tolerated Well -Debridement - Subq, 1st 20sq cm Yes Yes -Debridement, SubQ, ea addt'l 20sq cm 3 or part thereof #11 right sacral -Time 11:35 12:10 -Correct Patient Yes Yes -Correct Side, Site, Position Yes Yes -Correct Procedure Yes Yes -Procedure Performed Yes Yes -Type of Procedure Debridement Debridement -Clinical Debridement Subcutaneous Subcutaneous -Tissue Removed Subcutaneous Subcutaneous -Post Debridement (cm) - Length 1.3 3.5 -Post Debridement (cm) - Width 0.5 0.5 -Post Debridement (cm) - Depth 0.1 0.1 -Total Square (Post) (cm) 0.65 1.75 -Area of Debridement (cm) - Length 1.3 3.5 -Area of Debridement (cm) - Width 0.5 0.5 -Total Square (Area) (cm) 0.65 1.75 -Tunneling No No -Undermining/Tunneling No No -Circular Undermining No No -Wound/Ulcer Outcome Not Healed Not Healed -Ulcer Cleansing Rinsed/ Rinsed/ Irrigated with Irrigated with Saline Saline -Foul Odor after Cleansing No No -Bioengineered Tissue No No -Bleeding Controlled with Pressure Pressure -Offloading No No -Treatment Response Procedure Procedure Tolerated Well Tolerated Well -Debridement - Subq, 1st 20sq cm No No #9 R Buttocks -Time 11:35 12:11 -Correct Patient Yes Yes -Correct Side, Site, Position Yes Yes -Correct Procedure Yes Yes -Procedure Performed Yes Yes -Type of Procedure Debridement Debridement -Clinical Debridement Subcutaneous Subcutaneous -Tissue Removed Subcutaneous Subcutaneous -Post Debridement (cm) - Length 7.5 7.5 -Post Debridement (cm) - Width 5.0 4.0 -Post Debridement (cm) - Depth 1.5 1.5 -Total Square (Post) (cm) 37.50 30.00 -Area of Debridement (cm) - Length 7.5 7.5 -Area of Debridement (cm) - Width 5.0 4.0 -Total Square (Area) (cm) 37.50 30.00 -Tunneling No No -Undermining/Tunneling No No -Circular Undermining No No -Wound/Ulcer Outcome Not Healed Not Healed -Ulcer Cleansing Rinsed/ Rinsed/ Irrigated with Irrigated with Saline Saline -Foul Odor after Cleansing No No -Bioengineered Tissue No No -Bleeding Controlled with Pressure Pressure -Offloading No No -Treatment Response Procedure Tolerated Well -Debridement - Open, 1st 20sq cm No -Debridement - Subq, 1st 20sq cm No No #8 L Buttucks -Time 11:36 12:12 -Correct Patient Yes Yes -Correct Side, Site, Position Yes Yes -Correct Procedure Yes -Procedure Performed Yes Yes -Type of Procedure Debridement Debridement -Clinical Debridement Subcutaneous Subcutaneous -Tissue Removed Subcutaneous Subcutaneous -Post Debridement (cm) - Length 7.4 7.5 -Post Debridement (cm) - Width 5.0 4.5 -Post Debridement (cm) - Depth 1.7 1.8 -Total Square (Post) (cm) 37.00 33.75 -Area of Debridement (cm) - Length 7.4 7.5 -Area of Debridement (cm) - Width 5.0 4.5 -Total Square (Area) (cm) 37.00 33.75 -Tunneling No No -Undermining/Tunneling No No -Circular Undermining No No -Wound/Ulcer Outcome Not Healed Not Healed -Ulcer Cleansing Rinsed/ Rinsed/ Irrigated with Irrigated with Saline Saline -Foul Odor after Cleansing No No -Bioengineered Tissue No No -Bleeding Controlled with Pressure Pressure -Offloading No No -Treatment Response Procedure Tolerated Well -Debridement - Subq, 1st 20sq cm No No Pain Scale: 0-10 Numeric Is Patient Pain Free? Yes Yes WC - Nurse 3 - General Ulcer D/C NN Start: 11/27/20 10:53 Freq: Status: Active Protocol: Activity Type Activity Date Activity User E-Sign Co-Sign Detail Recorded Client Recorded Date Recorded By Document 11/27/20 11:43 [facility] [id number] 11/27/20 11:45 [facility] Document 12/11/20 12:14 [facility] [id number] 12/11/20 12:17 [facility] 11/27/20 12/11/20 11:43 12:14 Wound Care Nurse 3 #12 left sacral -Ulcer Cleansing Rinsed/ Irrigated with Saline -Foul Odor after Cleansing No -Primary Dressing Applied Other Other -Other Dressing pts nurse collagen, applied calcium collagen drsg w alginate, / border drsg island drsg per pt's nurse #11 right sacral -Ulcer Cleansing Rinsed/ Irrigated with Saline -Foul Odor after Cleansing No -Primary Dressing Applied Other -Other Dressing pts nurse collagen, applied calcium collagen w/ alginate, border drsg island drsg per pts nurse #9 R Buttocks -Ulcer Cleansing Rinsed/ Irrigated with Saline -Foul Odor after Cleansing No -Primary Dressing Applied Other Other -Other Dressing pts nurse collagen, applied calcium collagen and algniate, border drsg island per pts nurse #8 L Buttucks -Ulcer Cleansing Rinsed/ Irrigated with Saline -Foul Odor after Cleansing No -Primary Dressing Applied Other -Other Dressing pts nurse collagen, applied calcium collagen and alginate, border drsg island drsg per pts nurse Treatment Response Procedure Procedure Tolerated Well Tolerated Well Pain Scale: 0-10 Numeric Is Patient Pain Free? Yes Yes WC - Visit Discharge Discharge Condition Stable Stable Ambulatory Status Wheelchair Wheelchair Transportation Private Auto Private Auto Accompanied by personal nurse pts nurse Facility Type Home Health Home Health Additional Wound Wound debrided: Right sacral Type of Debridement: Excisional debridement Anesthesia Used: 4% Lidocaine Solution Depth: Down to and including healthy tissue Percentage of wound debrided: 100 Instrument Used: 7mm curette Tissue Removed: Slough and devitalized tissue Severity: Fat Layer Exposed Amount of bleeding with debridement: Mild Bleeding Controlled with: Pressure Patient tolerated procedure: Patient tolerated procedure well Additional Wound Wound debrided: Left buttock Type of Debridement: Excisional debridement Anesthesia Used: 4% Lidocaine Solution Depth: Down to and including healthy tissue and in the subcutaneous layer Percentage of wound debrided: 100 Instrument Used: 7mm curette Tissue Removed: Slough and devitalized tissue Severity: Fat Layer Exposed Amount of bleeding with debridement: Mild Bleeding Controlled with: Pressure Patient tolerated procedure: Patient tolerated procedure well Additional Wound Wound debrided: Right buttock Type of Debridement: Excisional debridement Anesthesia Used: 4% Lidocaine Solution Depth: Down to and including healthy tissue and in the subcutaneous layer Percentage of wound debrided: 100 Instrument Used: 7mm curette Tissue Removed: Slough and devitalized tissue Severity: Fat Layer Exposed Bleeding Controlled with: Pressure Patient tolerated procedure: Patient tolerated procedure well Assessment/Plan Assessment/Plan (1) Sacral decubitus ulcer, stage IV: CODE(S): L89.154 - Pressure ulcer of sacral region, stage 4 (2) Decubitus ulcer of right buttock, stage 4: CODE(S): L89.314 - Pressure ulcer of right buttock, stage 4 (3) Decubitus ulcer of left buttock, stage 4: CODE(S): L89.324 - Pressure ulcer of left buttock, stage 4 (4) Chronic osteomyelitis involving pelvic region and thigh: CODE(S): M86.659 - Other chronic osteomyelitis, unspecified thigh (5) Paraplegia: CODE(S): G82.20 - Paraplegia, unspecified PLAN: Debridement done as documented above, procedure well-tolerated. No new concerns at this time. Right buttock has done okay without the VAC. Discontinued. Continue 10 minute Acetic acid soak to all ulcers,then calcium alginate/collagen dressing. Change daily to twice daily depending on drainage. May apply Adaptic to the healed portion of the sacral. Continue optimal dietary and protein intake. Offloading strongly recommended. His questions were answered and they were advised to call with any further questions or concerns. Follow up in 2 weeks Per patient preference. This note was generated with [employer] software. It may contain incorrect words, spelling, and punctuation that were not noted in checking the note before signing. This note was generated with [employer] software. It may contain incorrect words, spelling, and punctuation that were not noted in checking the note before signing.
== END 2020-12-11 23:59 ==
LOC: WC 11:00
PROVIDERS: PCP Internal Medicine; Visit Provider Internal Medicine
DX: L89.154 Pressure ulcer of sacral region, stage 4 (principal); L89.314 Pressure ulcer of right buttock, stage 4; L89.324 Pressure ulcer of left buttock, stage 4; G82.20 Paraplegia, unspecified; M86.69 Other chronic osteomyelitis, multiple sites; E66.3 Overweight; Z68.27 Body mass index [BMI] 27.0-27.9, adult; Z79.84 Long term (current) use of oral hypoglycemic drugs; Z79.1 Long term (current) use of non-steroidal anti-inflammatories (NSAID); Z79.899 Other long term (current) drug therapy
CPT/HCPCS: 11042; 11045

== ENCOUNTER 2021-01-08 11:00 | Outpatient (RCR) | payer OTHER, SELFPAY ==
[2020-12-12 00:22] VITALS: BP 128/74; PULSE 67; RESP 20; TEMP 36.2; BMI 27.8
[2020-12-25 11:01] VITALS: BP 131/55; PULSE 75; RESP 20; TEMP 36.4; BMI 27.8
--- NOTE | 2020-12-25 13:15 | PCM.WC.PN ---
History of Present Illness Date of Service: 12/25/20 Chief Complaint: Non healing, chronic decubitus pressure ulcers, stage IV, with osteomyelitis - thigh, buttock, sacrum. History of Wound: Mr. Joyce is a 33yo well known to the wound center but was last seen here over a month ago. Initial sacral ulcer was said to have started in November and Buttock ulcers were noted subsequently. He has had an extensive hospital stay over the last couple of months following a work related injury. Both during his hopsital and longterm stays, he had wound care ranging from surgical debridement, wound vac and collagen use. He was scheduled to be restarted on his wound Vac prior to his discharge from the [place]. He reports significant drainage from the wounds. Also of note is a history of osteomyelitis for which he was on a 6 week IV antibiotic. His however states they were informed that he had developed chronic extensive pelvic area osteomyelitis. He feels well otherwise at this time and denies chills, fever,nausea, vomitting or change in bowel habit. 02/22/2019: Above, he was last seen here over a month ago. Had an extensive hospital stay [facility] due to complications from prior neck surgery. They state that his ulcers have been stable. Been doing the acetic acid soak for 10 minutes and then calcium alginate/collagen dressings. Denies any concerns at this time. Subjective Subjective No new concerns at this time. Has been without the VAC now for 4 weeks, no significant change or concerns. Objective Data Objective Data Vital Signs: Vital Signs Temp Pulse Resp BP 97.5 F L 75 20 H 131/55 H 12/25/20 11:01 12/25/20 11:01 12/25/20 11:01 12/25/20 11:01 Body Mass Index (BMI) 27.8 Charges/Coding Procedures Integumentary 111xxx-113xx: 50294 Oxana subq tissue 20 sq cm/< Add On Codes: 65040 Oxana subq tissue add-on (X2. Additional square centimeters debrided, please refer to clinical note.) Physical Exam Const alert and oriented x3 General Appearance: cooperative and comfortable HEENT normocephalic and hearing grossly normal bilaterally Head and Scalp: normal to inspection and normocephalic Neck full ROM and supple Resp normal respiratory effort Effort and Inspection: able to speak in complete sentences Skin Wounds: wounds noted Debridement Note Debridement Note Wound debrided: Left Sacral Wound Grade/Stage: Stage IV Type of Debridement: Excisional debridement Anesthesia Used: 4% Lidocaine Solution Depth: Down to and including healthy tissue and in the subcutaneous layer Percentage of wound debrided: 100 Instrument Used: 5mm curette Tissue Removed: Slough and devitalized tissue Severity: Fat Layer Exposed Amount of bleeding with debridement: Mild Bleeding Controlled with: Pressure Patient tolerated procedure: Patient tolerated procedure well Post-Debridement Measurements and Additional Note: Post-Debridement Measurements/Treatment - Nurse 1 - General Ulcer Assessment Start: 12/25/20 10:48 Freq: Status: Active Protocol: JUDITH Activity Type Activity Date Activity User E-Sign Co-Sign Detail Recorded Client Recorded Date Recorded By Document 12/25/20 11:01 FRANCO [id number] 12/25/20 11:12 FRANCO 12/25/20 11:01 WC - Today's Visit Information Type of service Follow-up Visit (Physician/BRAKE ASSEMBLER ) Arrival Mode Stretcher Transfer Assistance Manual Transfer Assist (Other) x3 Patient Identification Verified (Name & Yes ) Patient Requires Transmission-Based No Precautions Finger Stick Blood Sugar(mg/dl) (if didnt check indicated): Blood Sugar Stated by Patient Height and Weight Body Mass Index (BMI) 27.8 BMI Classification Overweight Vital Signs Temperature (97.8 F-99.1 F) 97.5 F L Temperature Source Temporal Pulse Rate (60-100) 75 Pulse Location Monitor Respiratory Rate (12-18) 20 H Respiratory rate source Observation Blood Pressure (90/60-120/80) 131/55 H Blood Pressure Mean (mm Hg) 80 Source Monitor History Since Last Visit- (Skip if this is Patient's initial visit) Have you changed medications since your No last visit? Any new allergies or adverse reactions No Had a fall/change in ADL's that may No increase risk of falls Signs or symptoms of abuse and/or No neglect since last visit Have you been in the hospital since your No last visit? Has dressing in place as prescribed Yes Has compression in place as prescribed N/A Has offloadiing in place as prescribed Yes Experienced any changes in pain level or No management Pain Scale: 0-10 Numeric Is Patient Pain Free? Yes - Nurse 1 - General Ulcer Measurement Start: 12/25/20 10:48 Freq: Status: Active Protocol: Activity Type Activity Date Activity User E-Sign Co-Sign Detail Recorded Client Recorded Date Recorded By Document 12/25/20 11:01 KR [id number] 12/25/20 11:12 KR 12/25/20 11:01 Wound Center Nurse 1 #12 left sacral -Current Size (cm) - Length 3.5 -Current Size (cm) - Width 1.5 -Current Size (cm) - Depth 0.2 -Total Square Cm 5.25 -Photo Taken No -Exudate Amt Small -Wound Margin Distinct, Outline Attached -Granulation Amt Small (1-33%) -Granulation Quality [place] -Necrosis Amt Small (1-33%) -Necrotic Tissue Type Adherent Slough -Structure Exposed N/A -Texture (Sheyla-wound Skin Appearance) Scarring -Moisture (Sheyla-wound Skin Appearance) No Abnormality -Color (Sheyla-wound Skin Appearance) No Abnormality -Temperature (Sheyla-wound Skin No Abnormality Appearance) (Pt Warm) -Tenderness on Palpation (Sheyla-wound No Skin Appearance) -Ulcer Cleansing Soap and Water -Foul Odor after Cleansing No #11 right sacral -Current Size (cm) - Length 2.6 -Current Size (cm) - Width 0.6 -Current Size (cm) - Depth 0.2 -Total Square Cm 1.56 -Photo Taken No -Exudate Amt Small -Wound Margin Distinct, Outline Attached -Granulation Amt Small (1-33%) -Granulation Quality [place] -Necrosis Amt Small (1-33%) -Necrotic Tissue Type Adherent Slough -Structure Exposed N/A -Texture (Sheyla-wound Skin Appearance) Scarring -Moisture (Sheyla-wound Skin Appearance) No Abnormality -Color (Sheyla-wound Skin Appearance) No Abnormality -Temperature (Sheyla-wound Skin No Abnormality Appearance) (Pt Warm) -Tenderness on Palpation (Sheyla-wound No Skin Appearance) -Ulcer Cleansing Soap and Water -Foul Odor after Cleansing No #9 R Buttocks -Current Size (cm) - Length 8 -Current Size (cm) - Width 4.4 -Current Size (cm) - Depth 1.5 -Total Square Cm 35.2 -Photo Taken No -Exudate Amt Medium -Exudate Type Serosanguineous -Wound Margin Thickened -Granulation Amt Large (67-100%) -Granulation Quality Red -Necrosis Amt Small (1-33%) -Necrotic Tissue Type Adherent Slough -Structure Exposed N/A -Texture (Sheyla-wound Skin Appearance) Scarring -Moisture (Sheyla-wound Skin Appearance) No Abnormality -Color (Sheyla-wound Skin Appearance) No Abnormality -Temperature (Sheyla-wound Skin No Abnormality Appearance) (Pt Warm) -Tenderness on Palpation (Sheyla-wound No Skin Appearance) -Ulcer Cleansing Soap and Water -Foul Odor after Cleansing No #8 L Buttucks -Current Size (cm) - Length 7 -Current Size (cm) - Width 4 -Current Size (cm) - Depth 1.7 -Total Square Cm 28 -Photo Taken No -Exudate Amt Medium -Exudate Type Serosanguineous -Wound Margin Thickened & Rolled Under -Granulation Amt Large (67-100%) -Granulation Quality Red -Necrosis Amt Small (1-33%) -Necrotic Tissue Type Adherent Slough -Structure Exposed N/A -Texture (Sheyla-wound Skin Appearance) Scarring -Moisture (Hseyla-wound Skin Appearance) No Abnormality -Color (Sheyla-wound Skin Appearance) No Abnormality -Temperature (Sheyla-wound Skin No Abnormality Appearance) (Pt Warm) -Tenderness on Palpation (Sheyla-wound No Skin Appearance) -Ulcer Cleansing Soap and Water -Foul Odor after Cleansing No WC - Nurse 2 - General Ulcer CM Notes Start: 12/25/20 10:48 Freq: Status: Active Protocol: Activity Type Activity Date Activity User E-Sign Co-Sign Detail Recorded Client Recorded Date Recorded By Document 12/25/20 11:36 MW [id number] 12/25/20 11:47 MW Edit Result 12/25/20 11:36 MW (1) [id number] 12/25/20 11:48 MW (1) #12 left sacral - Debridement, SubQ, ea addt'l 20sq cm => 3 or part thereof 12/25/20 11:36 Wound Center Nurse 2 #12 left sacral -Time 11:38 -Correct Patient Yes -Correct Side, Site, Position Yes -Correct Procedure Yes -Procedure Performed Yes -Type of Procedure Debridement -Clinical Debridement Subcutaneous -Tissue Removed Subcutaneous -Post Debridement (cm) - Length 3.5 -Post Debridement (cm) - Width 0.3 -Post Debridement (cm) - Depth 0.1 -Total Square (Post) (cm) 1.05 -Area of Debridement (cm) - Length 3.5 -Area of Debridement (cm) - Width 0.3 -Total Square (Area) (cm) 1.05 -Tunneling No -Undermining/Tunneling No -Circular Undermining No -Wound/Ulcer Outcome Not Healed -Ulcer Cleansing Rinsed/ Irrigated with Saline -Foul Odor after Cleansing No -Bioengineered Tissue No -Bleeding Controlled with Pressure -Offloading No -Treatment Response Procedure Tolerated Well -Debridement - Subq, 1st 20sq cm Yes -Debridement, SubQ, ea addt'l 20sq cm 3 or part thereof #11 right sacral -Time 11:39 -Correct Patient Yes -Correct Side, Site, Position Yes -Correct Procedure Yes -Procedure Performed Yes -Type of Procedure Debridement -Clinical Debridement Subcutaneous -Tissue Removed Subcutaneous -Post Debridement (cm) - Length 2.5 -Post Debridement (cm) - Width 0.5 -Post Debridement (cm) - Depth 0.1 -Total Square (Post) (cm) 1.25 -Area of Debridement (cm) - Length 2.5 -Area of Debridement (cm) - Width 0.5 -Total Square (Area) (cm) 1.25 -Tunneling No -Undermining/Tunneling No -Circular Undermining No -Wound/Ulcer Outcome Not Healed -Ulcer Cleansing Rinsed/ Irrigated with Saline -Foul Odor after Cleansing No -Bioengineered Tissue No -Bleeding Controlled with Pressure -Offloading No -Treatment Response Procedure Tolerated Well -Debridement - Subq, 1st 20sq cm No #9 R Buttocks -Time 11:39 -Correct Patient Yes -Correct Side, Site, Position Yes -Correct Procedure Yes -Procedure Performed Yes -Type of Procedure Debridement -Clinical Debridement Subcutaneous -Tissue Removed Subcutaneous -Post Debridement (cm) - Length 8.0 -Post Debridement (cm) - Width 4.0 -Post Debridement (cm) - Depth 1.7 -Total Square (Post) (cm) 32.00 -Area of Debridement (cm) - Length 8.0 -Area of Debridement (cm) - Width 4.0 -Total Square (Area) (cm) 32.00 -Tunneling No -Undermining/Tunneling No -Circular Undermining No -Wound/Ulcer Outcome Not Healed -Ulcer Cleansing Rinsed/ Irrigated with Saline -Foul Odor after Cleansing No -Bioengineered Tissue No -Bleeding Controlled with Pressure -Offloading No -Treatment Response Procedure Tolerated Well -Debridement - Subq, 1st 20sq cm No #8 L Buttucks -Time 11:39 -Correct Patient Yes -Correct Side, Site, Position Yes -Correct Procedure Yes -Procedure Performed Yes -Type of Procedure Debridement -Clinical Debridement Subcutaneous -Tissue Removed Subcutaneous -Post Debridement (cm) - Length 7.4 -Post Debridement (cm) - Width 4.0 -Post Debridement (cm) - Depth 2.0 -Total Square (Post) (cm) 29.60 -Area of Debridement (cm) - Length 7.4 -Area of Debridement (cm) - Width 4.0 -Total Square (Area) (cm) 29.60 -Tunneling No -Undermining/Tunneling No -Circular Undermining No -Wound/Ulcer Outcome Not Healed -Ulcer Cleansing Rinsed/ Irrigated with Saline -Foul Odor after Cleansing No -Bioengineered Tissue No -Bleeding Controlled with Pressure -Offloading No -Treatment Response Procedure Tolerated Well -Debridement - Subq, 1st 20sq cm No Pain Scale: 0-10 Numeric Is Patient Pain Free? Yes WC - Nurse 3 - General Ulcer D/C NN Start: 12/25/20 10:48 Freq: Status: Active Protocol: Activity Type Activity Date Activity User E-Sign Co-Sign Detail Recorded Client Recorded Date Recorded By Document 12/25/20 11:51 JOSE [id number] 12/25/20 11:54 JOSE 12/25/20 11:51 Wound Care Nurse 3 #12 left sacral -Ulcer Cleansing Rinsed/ Irrigated with Saline -Foul Odor after Cleansing No -Negative Pressure Wound Therapy N/A -Other Dressing acetic acid- wet todry collagen cover with calcium alginate dressing #11 right sacral -Ulcer Cleansing Rinsed/ Irrigated with Saline -Foul Odor after Cleansing No -Negative Pressure Wound Therapy N/A -Other Dressing acetic acid- wet todry collagen cover with calcium alginate dressing #9 R Buttocks -Ulcer Cleansing Rinsed/ Irrigated with Saline -Foul Odor after Cleansing No -Negative Pressure Wound Therapy N/A -Other Dressing acetic acid- wet todry collagen cover with calcium alginate dressing #8 L Buttucks -Ulcer Cleansing Rinsed/ Irrigated with Saline -Foul Odor after Cleansing No -Negative Pressure Wound Therapy N/A -Other Covering acetic acid- wet todry collagen cover with calcium alginate dressing WC - Visit Discharge Discharge Condition Stable Ambulatory Status Wheelchair Medication Reconcilliation completed & Yes provided to patient/care provider Clinical Summary of Care Provided No Additional Wound Wound debrided: Right Sacral Type of Debridement: Excisional debridement Anesthesia Used: 4% Lidocaine Solution Depth: Down to and including healthy tissue Percentage of wound debrided: 100 Instrument Used: 5mm curette Tissue Removed: Slough and devitalized tissue Severity: Fat Layer Exposed Amount of bleeding with debridement: Mild Bleeding Controlled with: Pressure Patient tolerated procedure: Patient tolerated procedure well Additional Wound Wound debrided: Left Buttock Type of Debridement: Excisional debridement Anesthesia Used: 4% Lidocaine Solution Depth: Down to and including healthy tissue and in the subcutaneous layer Percentage of wound debrided: 100 Instrument Used: 5mm curette Tissue Removed: Slough and devitalized tissue Severity: Fat Layer Exposed Amount of bleeding with debridement: Mild Bleeding Controlled with: Pressure Patient tolerated procedure: Patient tolerated procedure well Additional Wound Wound debrided: Right Buttock Type of Debridement: Excisional debridement Anesthesia Used: 4% Lidocaine Solution Depth: Down to and including healthy tissue and in the subcutaneous layer Percentage of wound debrided: 100 Instrument Used: 5mm curette Tissue Removed: Slough and devitalized tissue Severity: Fat Layer Exposed Amount of bleeding with debridement: Mild Bleeding Controlled with: Pressure Patient tolerated procedure: Patient tolerated procedure well Assessment/Plan Assessment/Plan (1) Sacral decubitus ulcer, stage IV: CODE(S): L89.154 - Pressure ulcer of sacral region, stage 4 (2) Decubitus ulcer of right buttock, stage 4: CODE(S): L89.314 - Pressure ulcer of right buttock, stage 4 (3) Decubitus ulcer of left buttock, stage 4: CODE(S): L89.324 - Pressure ulcer of left buttock, stage 4 (4) Chronic osteomyelitis involving pelvic region and thigh: CODE(S): M86.659 - Other chronic osteomyelitis, unspecified thigh (5) Paraplegia: CODE(S): G82.20 - Paraplegia, unspecified PLAN: Debridement done as documented above, procedure well-tolerated. No new concerns at this time. Continue 10 minute Acetic acid soak to all ulcers,then calcium alginate/collagen dressing. Change daily to twice daily depending on drainage. May apply Adaptic to the healed portion of the sacral. Continue optimal dietary and protein intake. Offloading strongly recommended. His questions were answered and they were advised to call with any further questions or concerns. Follow up in 2 weeks Per patient preference. This note was generated with [employer] software. It may contain incorrect words, spelling, and punctuation that were not noted in checking the note before signing. This note was generated with [employer] dictation software. It may contain incorrect words, spelling, and punctuation that were not noted in checking the note before signing.
[2021-01-08 11:23] VITALS: BP 96/57; PULSE 82; RESP 20; TEMP 36.6; BMI 27.8
--- NOTE | 2021-01-08 12:57 | PN.PCM_ITS ---
History of Present Illness Date of Service: 01/08/21 Chief Complaint: Non healing, chronic decubitus pressure ulcers, stage IV, with osteomyelitis - thigh, buttock, sacrum. History of Wound: Mr. Joyce is a 33yo well known to the wound center but was last seen here over a month ago. Initial sacral ulcer was said to have started in November and Buttock ulcers were noted subsequently. He has had an extensive hospital stay over the last couple of months following a work related injury. Both during his hopsital and long-term stays, he had wound care ranging from surgical debridement, wound vac and collagen use. He was scheduled to be restarted on his wound Vac prior to his [place] from the [place]. He reports significant drainage from the wounds. Also of note is a history of osteomyelitis for which he was on a 6 week IV antibiotic. His however states they were informed that he had developed chronic extensive pelvic area osteomyelitis. He feels well otherwise at this time and denies chills, fever,nausea, vomitting or change in bowel habit. 02/22/2019: Above, he was last seen here over a month ago. Had an extensive hospital stay [facility] due to complications from prior neck surgery. They state that his ulcers have been stable. Been doing the acetic a kelly soak for 10 minutes and then calcium alginate/collagen dressings. Denies any concerns at this time. Subjective Subjective No new concerns at this time. Stable ulcers. No chills, fever or feeling of unwell. Objective Data Objective Data Vital Signs: Vital Signs Temp Pulse Resp BP 97.9 F 82 20 H 96/57 L 01/08/21 11:23 01/08/21 11:23 01/08/21 11:23 01/08/21 11:23 Body Mass Index (BMI) 27.8 Charges/Coding Procedures Integumentary 111xxx-113xx: 28181 Oxana subq tissue 20 sq cm/< Add On Codes: 98971 Oxana subq tissue add-on Physical Exam Const alert and oriented x3 General Appearance: cooperative and comfortable HEENT normocephalic and hearing grossly normal bilaterally Head and Scalp: normal to inspection and normocephalic Neck full ROM and supple Resp normal respiratory effort Effort and Inspection: able to speak in complete sentences Skin Wounds: wounds noted Debridement Note Debridement Note Wound debrided: Left sacral Wound Grade/Stage: Stage IV Type of Debridement: Excisional debridement Anesthesia Used: 4% Lidocaine Solution Depth: Down to and including healthy tissue and in the subcutaneous layer Percentage of wound debrided: 100 Instrument Used: 5mm curette Tissue Removed: Slough and devitalized tissue Severity: Fat Layer Exposed Amount of bleeding with debridement: Mild Bleeding Controlled with: Pressure Patient tolerated procedure: Patient tolerated procedure well Post-Debridement Measurements and Additional Note: Post-Debridement Measurements/Treatment WC - Nurse 1 - General Ulcer Assessment Start: 12/25/20 10:48 Freq: Status: Active Protocol: JUDITH Activity Type Activity Date Activity User E-Sign Co-Sign Detail Recorded Client Recorded Date Recorded By Document 12/25/20 11:01 KR [id number] 12/25/20 11:12 KR Document 01/08/21 11:23 DL [id number] 01/08/21 11:33 DL 12/25/20 01/08/21 11:01 11:23 - Today's Visit Information Type of service Follow-up Visit Follow-up Visit (Physician/MILK ROUTE SUPERVISOR (Physician/MILK ROUTE SUPERVISOR ) ) Arrival Mode Stretcher Wheelchair Transfer Assistance Manual Whit Lift Transfer Assist (Other) x3 Patient Identification Verified (Name & Yes Yes ) Patient Requires Transmission-Based No No Precautions Finger Stick Blood Sugar(mg/dl) (if didnt check 122 indicated): Blood Sugar Stated by Stated by Patient Patient Height and Weight Body Mass Index (BMI) 27.8 27.8 BMI Classification Overweight Overweight Vital Signs Temperature (97.8 F-99.1 F) 97.5 F L 97.9 F Temperature Source Temporal Temporal Pulse Rate (60-100) 75 82 Pulse Location Monitor Monitor Respiratory Rate (12-18) 20 H 20 H Respiratory rate source Observation Observation Blood Pressure (90/60-120/80) 131/55 H 96/57 L Blood Pressure Mean (mm Hg) 80 70 Source Monitor Monitor History Since Last Visit- (Skip if this is Patient's initial visit) Have you changed medications since your No No last visit? Any new allergies or adverse reactions No No Had a fall/change in ADL's that may No No increase risk of falls Signs or symptoms of abuse and/or No No neglect since last visit Have you been in the hospital since your No No last visit? Has dressing in place as prescribed Yes Yes Has compression in place as prescribed N/A N/A Has offloadiing in place as prescribed Yes Yes Experienced any changes in pain level or No No management Pain Scale: 0-10 Numeric Is Patient Pain Free? Yes Yes WC - Nurse 1 - General Ulcer Measurement Start: 12/25/20 10:48 Freq: Status: Active Protocol: Activity Type Activity Date Activity User E-Sign Co-Sign Detail Recorded Client Recorded Date Recorded By Document 12/25/20 11:01 KR [id number] 12/25/20 11:12 KR Document 01/08/21 11:23 DL [id number] 01/08/21 11:33 DL 12/25/20 01/08/21 11:01 11:23 Wound Center Nurse 1 #12 left sacral -Current Size (cm) - Length 3.5 3.6 -Current Size (cm) - Width 1.5 1.6 -Current Size (cm) - Depth 0.2 0.1 -Total Square Cm 5.25 5.76 -Photo Taken No No -Exudate Amt Small Medium -Exudate Type Serosanguineous -Wound Margin Distinct, Distinct, Outline Outline Attached Attached -Granulation Amt Small (1-33%) Large (67-100%) -Granulation Quality [place] Red -Necrosis Amt Small (1-33%) Small (1-33%) -Necrotic Tissue Type Adherent Slough -Structure Exposed N/A N/A -Texture (Sheyla-wound Skin Appearance) Scarring Scarring -Moisture (Sheyla-wound Skin Appearance) No Abnormality No Abnormality -Color (Sheyla-wound Skin Appearance) No Abnormality No Abnormality -Temperature (Sheyla-wound Skin No Abnormality No Abnormality Appearance) (Pt Warm) (Pt Warm) -Tenderness on Palpation (Sheyla-wound No No Skin Appearance) -Ulcer Cleansing Soap and Water Soap and Water -Foul Odor after Cleansing No No #11 right sacral -Current Size (cm) - Length 2.6 3 -Current Size (cm) - Width 0.6 0.8 -Current Size (cm) - Depth 0.2 0.1 -Total Square Cm 1.56 2.4 -Photo Taken No No -Exudate Amt Small Medium -Exudate Type Serosanguineous -Wound Margin Distinct, Distinct, Outline Outline Attached Attached -Granulation Amt Small (1-33%) Large (67-100%) -Granulation Quality [place],Red -Necrosis Amt Small (1-33%) Small (1-33%) -Necrotic Tissue Type Adherent Slough Adherent Slough -Structure Exposed N/A N/A -Texture (Sheyla-wound Skin Appearance) Scarring Scarring -Moisture (Sheyla-wound Skin Appearance) No Abnormality No Abnormality -Color (Sheyla-wound Skin Appearance) No Abnormality No Abnormality -Temperature (Sheyla-wound Skin No Abnormality No Abnormality Appearance) (Pt Warm) (Pt Warm) -Tenderness on Palpation (Sheyla-wound No No Skin Appearance) -Ulcer Cleansing Soap and Water Wound Cleanser -Foul Odor after Cleansing No No -Anesthetic Used 4% Lidocaine Solution #9 R Buttocks -Current Size (cm) - Length 8 7.5 -Current Size (cm) - Width 4.4 3.8 -Current Size (cm) - Depth 1.5 2 -Total Square Cm 35.2 28.50 -Photo Taken No No -Exudate Amt Medium Medium -Exudate Type Serosanguineous Serosanguineous -Wound Margin Thickened Thickened & Rolled Under -Granulation Amt Large (67-100%) Large (67-100%) -Granulation Quality Red Red -Necrosis Amt Small (1-33%) Small (1-33%) -Necrotic Tissue Type Adherent Slough Adherent Slough -Structure Exposed N/A N/A -Texture (Sheyla-wound Skin Appearance) Scarring Scarring -Moisture (Sheyla-wound Skin Appearance) No Abnormality No Abnormality -Color (Sheyla-wound Skin Appearance) No Abnormality Assessed -Temperature (Sheyla-wound Skin No Abnormality Appearance) (Pt Warm) -Tenderness on Palpation (Sheyla-wound No No Skin Appearance) -Ulcer Cleansing Soap and Water Soap and Water -Foul Odor after Cleansing No No #8 L Buttucks -Current Size (cm) - Length 7 7 -Current Size (cm) - Width 4 3.5 -Current Size (cm) - Depth 1.7 1.2 -Total Square Cm 28 24.5 -Photo Taken No No -Exudate Amt Medium Medium -Exudate Type Serosanguineous Serosanguineous -Wound Margin Thickened & Thickened & Rolled Under Rolled Under -Granulation Amt Large (67-100%) Large (67-100%) -Granulation Quality [place],Red -Necrosis Amt Small (1-33%) Small (1-33%) -Necrotic Tissue Type Adherent Slough Adherent Slough -Structure Exposed N/A N/A -Texture (Sheyla-wound Skin Appearance) Scarring Scarring -Moisture (Sheyla-wound Skin Appearance) No Abnormality No Abnormality -Color (Sheyla-wound Skin Appearance) No Abnormality No Abnormality -Temperature (Sheyla-wound Skin No Abnormality No Abnormality Appearance) (Pt Warm) (Pt Warm) -Tenderness on Palpation (Sheyla-wound No No Skin Appearance) -Ulcer Cleansing Soap and Water Soap and Water -Foul Odor after Cleansing No No WC - Nurse 2 - General Ulcer CM Notes Start: 12/25/20 10:48 Freq: Status: Active Protocol: Activity Type Activity Date Activity User E-Sign Co-Sign Detail Recorded Client Recorded Date Recorded By Document 12/25/20 11:36 MW [id number] 12/25/20 11:47 MW Edit Result 12/25/20 11:36 MW (1) [id number] 12/25/20 11:48 MW Document 01/08/21 11:54 MW [id number] 01/08/21 12:05 MW (1) #12 left sacral - Debridement, SubQ, ea addt'l 20sq cm => 3 or part thereof 12/25/20 01/08/21 11:36 11:54 Wound Center Nurse 2 #12 left sacral -Time 11:38 11:54 -Correct Patient Yes Yes -Correct Side, Site, Position Yes Yes -Correct Procedure Yes Yes -Procedure Performed Yes Yes -Type of Procedure Debridement Debridement -Clinical Debridement Subcutaneous Subcutaneous -Tissue Removed Subcutaneous Subcutaneous -Post Debridement (cm) - Length 3.5 3.5 -Post Debridement (cm) - Width 0.3 1.4 -Post Debridement (cm) - Depth 0.1 0.1 -Total Square (Post) (cm) 1.05 4.90 -Area of Debridement (cm) - Length 3.5 3.5 -Area of Debridement (cm) - Width 0.3 1.4 -Total Square (Area) (cm) 1.05 4.90 -Tunneling No No -Undermining/Tunneling No No -Circular Undermining No No -Wound/Ulcer Outcome Not Healed Not Healed -Ulcer Cleansing Rinsed/ Rinsed/ Irrigated with Irrigated with Saline Saline -Foul Odor after Cleansing No No -Bioengineered Tissue No No -Bleeding Controlled with Pressure Pressure -Offloading No No -Treatment Response Procedure Procedure Tolerated Well Tolerated Well -Debridement - Subq, 1st 20sq cm Yes Yes -Debridement, SubQ, ea addt'l 20sq cm 3 3 or part thereof #11 right sacral -Time 11:39 11:54 -Correct Patient Yes Yes -Correct Side, Site, Position Yes Yes -Correct Procedure Yes Yes -Procedure Performed Yes Yes -Type of Procedure Debridement Debridement -Clinical Debridement Subcutaneous Subcutaneous -Tissue Removed Subcutaneous Subcutaneous -Post Debridement (cm) - Length 2.5 3.0 -Post Debridement (cm) - Width 0.5 0.4 -Post Debridement (cm) - Depth 0.1 0.1 -Total Square (Post) (cm) 1.25 1.20 -Area of Debridement (cm) - Length 2.5 3.0 -Area of Debridement (cm) - Width 0.5 0.4 -Total Square (Area) (cm) 1.25 1.20 -Tunneling No No -Undermining/Tunneling No No -Circular Undermining No No -Wound/Ulcer Outcome Not Healed Not Healed -Ulcer Cleansing Rinsed/ Rinsed/ Irrigated with Irrigated with Saline Saline -Foul Odor after Cleansing No No -Bioengineered Tissue No No -Bleeding Controlled with Pressure Pressure -Offloading No No -Treatment Response Procedure Procedure Tolerated Well Tolerated Well -Debridement - Subq, 1st 20sq cm No No #9 R Buttocks -Time 11:39 11:54 -Correct Patient Yes Yes -Correct Side, Site, Position Yes Yes -Correct Procedure Yes Yes -Procedure Performed Yes Yes -Type of Procedure Debridement Debridement -Clinical Debridement Subcutaneous Subcutaneous -Tissue Removed Subcutaneous Subcutaneous -Post Debridement (cm) - Length 8.0 8.0 -Post Debridement (cm) - Width 4.0 3.0 -Post Debridement (cm) - Depth 1.7 1.7 -Total Square (Post) (cm) 32.00 24.00 -Area of Debridement (cm) - Length 8.0 8.0 -Area of Debridement (cm) - Width 4.0 3.0 -Total Square (Area) (cm) 32.00 24.00 -Tunneling No No -Undermining/Tunneling No No -Circular Undermining No No -Wound/Ulcer Outcome Not Healed Not Healed -Ulcer Cleansing Rinsed/ Rinsed/ Irrigated with Irrigated with Saline Saline -Foul Odor after Cleansing No No -Bioengineered Tissue No No -Bleeding Controlled with Pressure Pressure -Offloading No No -Treatment Response Procedure Procedure Tolerated Well Tolerated Well -Debridement - Subq, 1st 20sq cm No No #8 L Buttucks -Time 11:39 11:55 -Correct Patient Yes Yes -Correct Side, Site, Position Yes Yes -Correct Procedure Yes Yes -Procedure Performed Yes Yes -Type of Procedure Debridement Debridement -Clinical Debridement Subcutaneous Subcutaneous -Tissue Removed Subcutaneous Subcutaneous -Post Debridement (cm) - Length 7.4 7.5 -Post Debridement (cm) - Width 4.0 4.0 -Post Debridement (cm) - Depth 2.0 1.8 -Total Square (Post) (cm) 29.60 30.00 -Area of Debridement (cm) - Length 7.4 7.5 -Area of Debridement (cm) - Width 4.0 4.0 -Total Square (Area) (cm) 29.60 30.00 -Tunneling No No -Undermining/Tunneling No No -Circular Undermining No No -Wound/Ulcer Outcome Not Healed Not Healed -Ulcer Cleansing Rinsed/ Rinsed/ Irrigated with Irrigated with Saline Saline -Foul Odor after Cleansing No No -Bioengineered Tissue No No -Bleeding Controlled with Pressure Pressure -Offloading No No -Treatment Response Procedure Procedure Tolerated Well Tolerated Well -Debridement - Subq, 1st 20sq cm No No Pain Scale: 0-10 Numeric Is Patient Pain Free? Yes Yes - Nurse 3 - General Ulcer D/C NN Start: 12/25/20 10:48 Freq: Status: Active Protocol: Activity Type Activity Date Activity User E-Sign Co-Sign Detail Recorded Client Recorded Date Recorded By Document 12/25/20 11:51 AK [id number] 12/25/20 11:54 AK Document 01/08/21 12:09 AK [id number] 01/08/21 12:13 AK 12/25/20 01/08/21 11:51 12:09 Wound Care Nurse 3 #12 left sacral -Ulcer Cleansing Rinsed/ Rinsed/ Irrigated with Irrigated with Saline Saline -Foul Odor after Cleansing No No -Negative Pressure Wound Therapy N/A N/A -Other Dressing acetic acid- provides wet todry care- acetic collagen cover acid- collegen- with calcium calcium alginate alginate and dressing mepiplex #11 right sacral -Ulcer Cleansing Rinsed/ Rinsed/ Irrigated with Irrigated with Saline Saline -Foul Odor after Cleansing No No -Negative Pressure Wound Therapy N/A N/A -Other Dressing acetic acid- provides wet todry care- acetic collagen cover acid- collegen- with calcium calcium alginate alginate and dressing mepiplex #9 R Buttocks -Ulcer Cleansing Rinsed/ Rinsed/ Irrigated with Irrigated with Saline Saline -Foul Odor after Cleansing No No -Negative Pressure Wound Therapy N/A N/A -Other Dressing acetic acid- provides wet todry care- acetic collagen cover acid- collegen- with calcium calcium alginate alginate and dressing mepiplex #8 L Buttucks -Ulcer Cleansing Rinsed/ Rinsed/ Irrigated with Irrigated with Saline Saline -Foul Odor after Cleansing No No -Negative Pressure Wound Therapy N/A N/A -Other Dressing provides care- acetic acid- collegen- calcium alginate and mepiplex -Other Covering acetic acid- wet todry collagen cover with calcium alginate dressing WC - Visit Discharge Discharge Condition Stable Stable Ambulatory Status Wheelchair Wheelchair Transportation Private Auto Accompanied by Medication Reconcilliation completed & Yes No provided to patient/care provider Clinical Summary of Care Provided No Yes Additional Wound Wound debrided: Right sacral Type of Debridement: Excisional debridement Anesthesia Used: 4% Lidocaine Solution Depth: Down to and including healthy tissue and in the subcutaneous layer Percentage of wound debrided: 100 Instrument Used: 5mm curette Tissue Removed: Slough and devitalized tissue Severity: Fat Layer Exposed Amount of bleeding with debridement: Mild Bleeding Controlled with: Pressure Patient tolerated procedure: Patient tolerated procedure well Additional Wound Wound debrided: Left buttock Wound Grade/Stage: Stage IV Type of Debridement: Excisional debridement Anesthesia Used: 4% Lidocaine Solution Depth: Down to and including healthy tissue and in the subcutaneous layer Percentage of wound debrided: 100 Instrument Used: 5mm curette Tissue Removed: Slough and devitalized tissue Severity: Fat Layer Exposed Amount of bleeding with debridement: Mild Bleeding Controlled with: Pressure Patient tolerated procedure: Patient tolerated procedure well Additional Wound Wound debrided: Right buttock Type of Debridement: Excisional debridement Anesthesia Used: 4% Lidocaine Solution Depth: Down to and including healthy tissue and in the subcutaneous layer Percentage of wound debrided: 100 Instrument Used: 5mm curette Tissue Removed: Slough and devitalized tissue Severity: Fat Layer Exposed Amount of bleeding with debridement: Mild Bleeding Controlled with: Pressure Patient tolerated procedure: Patient tolerated procedure well Assessment/Plan Assessment/Plan (1) Sacral decubitus ulcer, stage IV: CODE(S): L89.154 - Pressure ulcer of sacral region, stage 4 (2) Decubitus ulcer of right buttock, stage 4: CODE(S): L89.314 - Pressure ulcer of right buttock, stage 4 (3) Decubitus ulcer of left buttock, stage 4: CODE(S): L89.324 - Pressure ulcer of left buttock, stage 4 (4) Chronic osteomyelitis involving pelvic region and thigh: CODE(S): M86.659 - Other chronic osteomyelitis, unspecified thigh (5) Paraplegia: CODE(S): G82.20 - Paraplegia, unspecified PLAN: Debridement done as documented above, procedure well-tolerated. No new concerns at this time. Continue 10 minute Acetic acid soak to all ulcers,then calcium alginate/collagen dressing. Change daily to twice daily depending on drainage. May apply Adaptic to the healed portion of the sacral. Continue optimal dietary and protein intake. Offloading strongly recommended. His questions were answered and they were advised to call with any further questions or concerns. Follow up in 2 weeks. This note was generated with Get[employer] software. It may contain incorrect words, spelling, and punctuation that were not noted in checking the note before signing. This note was generated with Get[employer] software. It may contain incorrect words, spelling, and punctuation that were not noted in checking the note before signing.
== END 2021-01-11 23:59 ==
LOC: WC 11:00
PROVIDERS: PCP Internal Medicine; Visit Provider Internal Medicine
DX: L89.154 Pressure ulcer of sacral region, stage 4 (principal); L89.314 Pressure ulcer of right buttock, stage 4; L89.324 Pressure ulcer of left buttock, stage 4; M86.69 Other chronic osteomyelitis, multiple sites; G82.20 Paraplegia, unspecified; Z79.52 Long term (current) use of systemic steroids; Z79.899 Other long term (current) drug therapy
CPT/HCPCS: 11042; 11045

== ENCOUNTER 2021-01-22 11:15 | Outpatient (RCR) | payer OTHER, SELFPAY ==
[2021-01-12 00:18] VITALS: BP 96/57; PULSE 82; RESP 20; TEMP 36.6; BMI 27.8
[2021-01-22 11:11] VITALS: BP 90/60; PULSE 78; RESP 16; TEMP 36.8; BMI 27.8
--- NOTE | 2021-01-22 12:19 | PCM.WC.PN ---
History of Present Illness Date of Service: 01/22/21 Chief Complaint: Non healing, chronic decubitus pressure ulcers, stage IV, with osteomyelitis - thigh, buttock, sacrum. History of Wound: Mr. Joyce is a 33yo well known to the wound center but was last seen here over a month ago. Initial sacral ulcer was said to have started in November and Buttock ulcers were noted subsequently. He has had an extensive hospital stay over the last couple of months following a work related injury. Both during his [facility] and [facility] stays, he had wound care ranging from surgical debridement, wound vac and collagen use. He was scheduled to be restarted on his wound Vac prior to his discharge from the OR. He reports significant drainage from the wounds. Also of note is a history of osteomyelitis for which he was on a 6 week IV antibiotic. His however states they were informed that he had developed chronic extensive pelvic area osteomyelitis. He feels well otherwise at this time and denies chills, fever,nausea, vomitting or change in bowel habit. 02/22/2019: Above, he was last seen here over a month ago. Had an extensive hospital stay [facility] due to complications from prior neck surgery. They state that his ulcers have been stable. Been doing the acetic acid soak for 10 minutes and then calcium alginate/collagen dressings. Denies any concerns at this time. Progress of Wound: Right sacral ulcer is healed. Other ulcers are stable/improving. No increased drainage or pain reported. Subjective Subjective No new concerns at this time. No chills, fever or feeling of unwell. Objective Data Objective Data Vital Signs: Vital Signs Temp Pulse Resp BP 98.3 F 78 16 90/60 01/22/21 11:11 01/22/21 11:11 01/22/21 11:11 01/22/21 11:11 Body Mass Index (BMI) 27.8 Charges/Coding Procedures Integumentary 111xxx-113xx: [id number] Oxana subq tissue 20 sq cm/< Add On Codes: 71200 Oxana subq tissue add-on (x2. Additional square centimeter debrided, please refer to clinical note) Physical Exam Const alert and oriented x3 General Appearance: cooperative and comfortable HEENT normocephalic and hearing grossly normal bilaterally Head and Scalp: normal to inspection and normocephalic Neck full ROM and supple Resp normal respiratory effort Effort and Inspection: able to speak in complete sentences Skin Wounds: wounds noted Debridement Note Debridement Note Wound debrided: Sacral ( Left ) Type of Debridement: Excisional debridement Anesthesia Used: 4% Lidocaine Solution Depth: Down to and including healthy tissue and in the subcutaneous layer Percentage of wound debrided: 100 Instrument Used: 5mm curette Tissue Removed: Slough and devitalized tissue Severity: Fat Layer Exposed Amount of bleeding with debridement: Mild Bleeding Controlled with: Pressure Patient tolerated procedure: Patient tolerated procedure well Post-Debridement Measurements and Additional Note: Post-Debridement Measurements/Treatment - Nurse 1 - General Ulcer Assessment Start: 01/22/21 11:02 Freq: Status: Active Protocol: JUDITH Activity Type Activity Date Activity User E-Sign Co-Sign Detail Recorded Client Recorded Date Recorded By Document 01/22/21 11:11 HERBER [id number] 01/22/21 11:22 HERBER 01/22/21 11:11 ARTIS - Today's Visit Information Type of service Follow-up Visit (Physician/RETAIL SOLAR ADVISOR ) Arrival Mode Stretcher Transfer Assistance Whit Lift Patient Identification Verified (Name & Yes ) Patient Requires Transmission-Based No Precautions Height and Weight Body Mass Index (BMI) 27.8 BMI Classification Overweight Vital Signs Temperature (97.8 F-99.1 F) 98.3 F Temperature Source Temporal Pulse Rate (60-100) 78 Pulse Location Monitor Respiratory Rate (12-18) 16 Respiratory rate source Observation Blood Pressure (90/60-120/80) 90/60 Blood Pressure Mean (mm Hg) 70 Source Monitor Position Sitting Blood Pressure Location Left Arm History Since Last Visit- (Skip if this is Patient's initial visit) Have you changed medications since your No last visit? Any new allergies or adverse reactions No Had a fall/change in ADL's that may No increase risk of falls Have you been in the hospital since your No last visit? Has dressing in place as prescribed Yes Has compression in place as prescribed N/A Has offloadiing in place as prescribed Yes Experienced any changes in pain level or No management Left Footwear Regular Shoe Right Footwear Regular Shoe Pain Scale: 0-10 Numeric Is Patient Pain Free? Yes ARTIS Lee Nurse 1 - General Ulcer Measurement Start: 01/22/21 11:02 Freq: Status: Active Protocol: Activity Type Activity Date Activity User E-Sign Co-Sign Detail Recorded Client Recorded Date Recorded By Document 01/22/21 11:11 HERBER [id number] 01/22/21 11:22 HERBER 01/22/21 11:11 Wound Center Nurse 1 #12 left sacral -Combined with other wound No -Current Size (cm) - Length 3 -Current Size (cm) - Width 1 -Current Size (cm) - Depth 0.1 -Total Square Cm 3 -Photo Taken No -Epithelialization None Present -Tunneling No -Undermining/Tunneling No -Circular Undermining No -Exudate Amt Medium -Exudate Type Serosanguineous -Wound Margin Distinct, Outline Attached -Granulation Amt Large (67-100%) -Granulation Quality Red -Slough/Fibrin Yes -Necrosis Amt Small (1-33%) -Necrotic Tissue Type Adherent Slough -Texture (Sheyla-wound Skin Appearance) Assessed -Moisture (Sheyla-wound Skin Appearance) No Abnormality, Dry/Scaly -Color (Sheyla-wound Skin Appearance) Assessed -Temperature (Sheyla-wound Skin No Abnormality Appearance) (Pt Warm) -Tenderness on Palpation (Sheyla-wound No Skin Appearance) -Ulcer Cleansing Wound Cleanser -Foul Odor after Cleansing No #11 right sacral -Combined with other wound No -Current Size (cm) - Length 3 -Current Size (cm) - Width 1 -Current Size (cm) - Depth 0.1 -Total Square Cm 3 -Photo Taken No -Epithelialization Small 1-33% -Tunneling Yes -Tunneling Position (O'clock) 12 -Tunneling Distance (cm) 3 -Undermining/Tunneling No -Circular Undermining No -Exudate Amt Medium -Exudate Type Serosanguineous -Wound Margin Distinct, Outline Attached -Granulation Amt Medium (34-66%) -Granulation Quality Red -Slough/Fibrin Yes -Necrosis Amt Medium (34-66%) -Necrotic Tissue Type Adherent Slough -Structure Exposed N/A -Texture (Sheyla-wound Skin Appearance) Assessed -Color (Sheyla-wound Skin Appearance) Assessed -Temperature (Sheyla-wound Skin No Abnormality Appearance) (Pt Warm) -Tenderness on Palpation (Sheyla-wound No Skin Appearance) -Ulcer Cleansing Wound Cleanser -Foul Odor after Cleansing No #9 R Buttocks -Combined with other wound No -Current Size (cm) - Length 7 -Current Size (cm) - Width 3 -Current Size (cm) - Depth 2 -Total Square Cm 21 -Photo Taken No -Epithelialization Small 1-33% -Tunneling No -Undermining/Tunneling No -Circular Undermining No -Exudate Amt Medium -Exudate Type Serosanguineous -Wound Margin Distinct, Outline Attached -Granulation Amt Large (67-100%) -Granulation Quality Red -Slough/Fibrin Yes -Necrosis Amt Small (1-33%) -Necrotic Tissue Type Adherent Slough -Structure Exposed N/A -Texture (Sheyla-wound Skin Appearance) Assessed -Moisture (Sheyla-wound Skin Appearance) Dry/Scaly -Color (Sheyla-wound Skin Appearance) Assessed -Temperature (Sheyla-wound Skin No Abnormality Appearance) (Pt Warm) -Tenderness on Palpation (Sheyla-wound No Skin Appearance) -Ulcer Cleansing Wound Cleanser -Foul Odor after Cleansing No #8 L Buttucks -Combined with other wound No -Current Size (cm) - Length 7 -Current Size (cm) - Width 0.8 -Current Size (cm) - Depth 1.6 -Total Square Cm 5.6 -Photo Taken No -Epithelialization None Present -Tunneling No -Undermining/Tunneling No -Circular Undermining No -Exudate Amt Large -Exudate Type Serosanguineous -Wound Margin Distinct, Outline Attached -Granulation Amt Large (67-100%) -Granulation Quality Red -Slough/Fibrin Yes -Necrosis Amt Small (1-33%) -Necrotic Tissue Type Adherent Slough -Structure Exposed N/A -Texture (Sheyla-wound Skin Appearance) Assessed -Moisture (Sheyla-wound Skin Appearance) No Abnormality -Color (Sheyla-wound Skin Appearance) Assessed -Temperature (Sheyla-wound Skin No Abnormality Appearance) (Pt Warm) -Tenderness on Palpation (Sehyla-wound No Skin Appearance) -Ulcer Cleansing Wound Cleanser -Foul Odor after Cleansing No Lower Limb Edema Present NA WC - Nurse 2 - General Ulcer CM Notes Start: 01/22/21 11:02 Freq: Status: Active Protocol: Activity Type Activity Date Activity User E-Sign Co-Sign Detail Recorded Client Recorded Date Recorded By Document 01/22/21 11:29 MW [id number] 01/22/21 11:39 MW 01/22/21 11:29 Wound Center Nurse 2 #12 left sacral -Time 11:29 -Correct Patient Yes -Correct Side, Site, Position Yes -Correct Procedure Yes -Procedure Performed Yes -Type of Procedure Debridement -Clinical Debridement Subcutaneous -Tissue Removed Subcutaneous -Post Debridement (cm) - Length 3.5 -Post Debridement (cm) - Width 1.0 -Post Debridement (cm) - Depth 0.1 -Total Square (Post) (cm) 3.50 -Area of Debridement (cm) - Length 3.5 -Area of Debridement (cm) - Width 1.0 -Total Square (Area) (cm) 3.50 -Tunneling No -Undermining/Tunneling No -Circular Undermining No -Wound/Ulcer Outcome Not Healed -Ulcer Cleansing Rinsed/ Irrigated with Saline -Foul Odor after Cleansing No -Bioengineered Tissue No -Bleeding Controlled with Pressure -Offloading No -Treatment Response Procedure Tolerated Well -Debridement - Subq, 1st 20sq cm Yes -Debridement, SubQ, ea addt'l 20sq cm 3 or part thereof #11 right sacral -Time 11:30 -Correct Patient Yes -Correct Side, Site, Position Yes -Correct Procedure Yes -Procedure Performed No -Post Debridement (cm) - Length 0.1 -Post Debridement (cm) - Width 0.1 -Post Debridement (cm) - Depth 0.1 -Total Square (Post) (cm) 0.01 -Tunneling No -Undermining/Tunneling No -Circular Undermining No -Wound/Ulcer Outcome Not Healed -Ulcer Cleansing Rinsed/ Irrigated with Saline -Foul Odor after Cleansing No -Bioengineered Tissue No #9 R Buttocks -Time 11:34 -Correct Patient Yes -Correct Side, Site, Position Yes -Correct Procedure Yes -Procedure Performed Yes -Type of Procedure Debridement -Clinical Debridement Subcutaneous -Tissue Removed Subcutaneous -Post Debridement (cm) - Length 8.0 -Post Debridement (cm) - Width 3.0 -Post Debridement (cm) - Depth 1.9 -Total Square (Post) (cm) 24.00 -Area of Debridement (cm) - Length 8.0 -Area of Debridement (cm) - Width 3.0 -Total Square (Area) (cm) 24.00 -Tunneling No -Undermining/Tunneling No -Circular Undermining No -Wound/Ulcer Outcome Not Healed -Ulcer Cleansing Rinsed/ Irrigated with Saline -Foul Odor after Cleansing No -Bioengineered Tissue No -Bleeding Controlled with Pressure -Offloading No -Treatment Response Procedure Tolerated Well -Debridement - Subq, 1st 20sq cm No #8 L Buttucks -Time 11:34 -Correct Patient Yes -Correct Side, Site, Position Yes -Correct Procedure Yes -Procedure Performed Yes -Type of Procedure Debridement -Clinical Debridement Subcutaneous -Tissue Removed Subcutaneous -Post Debridement (cm) - Length 7.5 -Post Debridement (cm) - Width 4.0 -Post Debridement (cm) - Depth 1.7 -Total Square (Post) (cm) 30.00 -Area of Debridement (cm) - Length 7.5 -Area of Debridement (cm) - Width 4.0 -Total Square (Area) (cm) 30.00 -Tunneling No -Undermining/Tunneling No -Circular Undermining No -Wound/Ulcer Outcome Not Healed -Ulcer Cleansing Rinsed/ Irrigated with Saline -Foul Odor after Cleansing No -Bioengineered Tissue No -Bleeding Controlled with Pressure -Offloading No -Treatment Response Procedure Tolerated Well -Debridement - Subq, 1st 20sq cm No Pain Scale: 0-10 Numeric Is Patient Pain Free? Yes Additional Wound Wound debrided: Left Buttock Type of Debridement: Excisional debridement Anesthesia Used: 4% Lidocaine Solution Depth: Down to and including healthy tissue and in the subcutaneous layer Percentage of wound debrided: 100 Instrument Used: 5mm curette Tissue Removed: Slough and devitalized tissue Severity: Fat Layer Exposed Amount of bleeding with debridement: Mild Bleeding Controlled with: Pressure Patient tolerated procedure: Patient tolerated procedure well Additional Wound Wound debrided: Right Buttock Type of Debridement: Excisional debridement Anesthesia Used: 4% Lidocaine Solution Depth: Down to and including healthy tissue and in the subcutaneous layer Percentage of wound debrided: 100 Instrument Used: 5mm curette Tissue Removed: Slough and devitalized tissue Severity: Fat Layer Exposed Amount of bleeding with debridement: Mild Bleeding Controlled with: Pressure Patient tolerated procedure: Patient tolerated procedure well Assessment/Plan Assessment/Plan (1) Sacral decubitus ulcer, stage IV: CODE(S): L89.154 - Pressure ulcer of sacral region, stage 4 (2) Decubitus ulcer of right buttock, stage 4: CODE(S): L89.314 - Pressure ulcer of right buttock, stage 4 (3) Decubitus ulcer of left buttock, stage 4: CODE(S): L89.324 - Pressure ulcer of left buttock, stage 4 (4) Chronic osteomyelitis involving pelvic region and thigh: CODE(S): M86.659 - Other chronic osteomyelitis, unspecified thigh (5) Paraplegia: CODE(S): G82.20 - Paraplegia, unspecified PLAN: Debridement done as documented above, procedure well-tolerated. Sacral ulcer with the most improvement. No new concerns at this time. Continue 10 minute Acetic acid soak to all ulcers,then calcium alginate/collagen dressing. Change daily to twice daily depending on drainage. May apply Adaptic to the healed portion of the sacral. Continue optimal dietary and protein intake. Offloading strongly recommended. His questions were answered and they were advised to call with any further questions or concerns. Follow up in 3 weeks due to the holiday. This note was generated with [employer] software. It may contain incorrect words, spelling, and punctuation that were not noted in checking the note before signing. This note was generated with [employer] software. It may contain incorrect words, spelling, and punctuation that were not noted in checking the note before signing.
== END 2021-02-10 23:59 ==
LOC: WC 11:15
PROVIDERS: PCP Internal Medicine; Visit Provider Internal Medicine
DX: L89.154 Pressure ulcer of sacral region, stage 4 (principal); L89.314 Pressure ulcer of right buttock, stage 4; L89.324 Pressure ulcer of left buttock, stage 4; M86.69 Other chronic osteomyelitis, multiple sites; G82.20 Paraplegia, unspecified; E66.3 Overweight; Z68.27 Body mass index [BMI] 27.0-27.9, adult; Z79.899 Other long term (current) drug therapy
CPT/HCPCS: 11042; 11045

== ENCOUNTER 2021-03-12 11:15 | Outpatient (RCR) | payer OTHER, SELFPAY ==
[2021-02-11 00:23] VITALS: BP 90/60; PULSE 78; RESP 16; TEMP 36.8; BMI 27.8
[2021-02-12 11:32] VITALS: BMI 27.8
[2021-02-12 11:41] VITALS: BP 132/69; PULSE 77; TEMP 36.8; BMI 27.8
--- NOTE | 2021-02-12 12:29 | PN.PCM_ITS ---
History of Present Illness Date of Service: 02/12/21 Chief Complaint: Non healing, chronic decubitus pressure ulcers, stage IV, with osteomyelitis - thigh, buttock, sacrum. History of Wound: Mr. Joyce is a 33yo well known to the wound center but was last seen here over a month ago. Initial sacral ulcer was said to have started in November and Buttock ulcers were noted subsequently. He has had an extensive hospital stay over the last couple of months following a work related injury. Both during his [facility] and [facility] stays, he had wound care ranging from surgical debridement, wound vac and collagen use. He was scheduled to be restarted on his wound Vac prior to his discharge from the [facility]. He reports significant drainage from the wounds. Also of note is a history of osteomyelitis for which he was on a 6 week IV antibiotic. His however states they were informed that he had developed chronic extensive pelvic area osteomyelitis. He feels well otherwise at this time and denies chills, fever,nausea, vomitting or change in bowel habit. 02/22/2019: Above, he was last seen here over a month ago. Had an extensive hospital stay [facility] due to complications from prior neck surgery. They state that his ulcers have been stable. Been doing the acetic a kelly soak for 10 minutes and then calcium alginate/collagen dressings. Denies any concerns at this time. Progress of Wound: Right Sacral and Buttock with some worsening noted. Patient and his home health nurse deny any new changes or concerns. Subjective Subjective No new concerns at this time. No chills, fever or feeling of unwell. Objective Data Objective Data Vital Signs: Vital Signs Temp Pulse Resp BP 98.2 F 77 16 132/69 H 02/12/21 11:41 02/12/21 11:41 02/11/21 00:23 02/12/21 11:41 Body Mass Index (BMI) 27.8 Charges/Coding Procedures Integumentary 111xxx-113xx: 90310 Oxana subq tissue 20 sq cm/< Add On Codes: 27242 Oxana subq tissue add-on (x2 Additional Sq Cm debrided, please refer to clinical note) Physical Exam Const alert and oriented x3 General Appearance: cooperative and comfortable HEENT normocephalic and hearing grossly normal bilaterally Head and Scalp: normal to inspection and normocephalic Neck full ROM and supple Resp normal respiratory effort Effort and Inspection: able to speak in complete sentences Skin Wounds: wounds noted Debridement Note Debridement Note Wound debrided: Left Sacral Type of Debridement: Excisional debridement Anesthesia Used: 4% Lidocaine Solution Depth: Down to and including healthy tissue and in the subcutaneous layer Percentage of wound debrided: 100 Instrument Used: 3mm curette Tissue Removed: Slough and Devitalized tissue Severity: Fat Layer Exposed Amount of bleeding with debridement: Mild Bleeding Controlled with: Pressure Patient tolerated procedure: Patient tolerated procedure well Post-Debridement Measurements and Additional Note: Post-Debridement Measurements/Treatment - Nurse 1 - General Ulcer Assessment Start: 02/12/21 11:13 Freq: Status: Active Protocol: RemoovKadi Activity Type Activity Date Activity User E-Sign Co-Sign Detail Recorded Client Recorded Date Recorded By Document 02/12/21 11:32 FRANCO [id number] 02/12/21 11:39 KR Document 02/12/21 11:41 JOSE [id number] 02/12/21 11:47 JOSE 02/12/21 02/12/21 11:32 11:41 - Today's Visit Information Type of service Follow-up Visit Follow-up Visit (Physician/TRENCH DIGGER HELPER (Physician/TRENCH DIGGER HELPER ) ) Arrival Mode Wheelchair Wheelchair Transfer Assistance Manual Transfer Assist (Other) 4 4 assist Patient Identification Verified (Name & Yes ) Patient Requires Transmission-Based No Precautions Safety Precautions NA Height and Weight Body Mass Index (BMI) 27.8 27.8 BMI Classification Overweight Overweight Vital Signs Temperature (97.8 F-99.1 F) 98.2 F Temperature Source Temporal Pulse Rate (60-100) 77 Pulse Location Monitor Blood Pressure (90/60-120/80) 132/69 H Blood Pressure Mean (mm Hg) 90 Source Monitor History Since Last Visit- (Skip if this is Patient's initial visit) Have you changed medications since your No last visit? Any new allergies or adverse reactions No Had a fall/change in ADL's that may No increase risk of falls Signs or symptoms of abuse and/or No neglect since last visit Have you been in the hospital since your No last visit? Has dressing in place as prescribed Yes Has compression in place as prescribed N/A Has offloadiing in place as prescribed Yes Experienced any changes in pain level or No management Left Footwear Regular Shoe Right Footwear Regular Shoe - Nurse 1 - General Ulcer Measurement Start: 02/12/21 11:13 Freq: Status: Active Protocol: Activity Type Activity Date Activity User E-Sign Co-Sign Detail Recorded Client Recorded Date Recorded By Document 02/12/21 11:41 JOSE [id number] 02/12/21 11:47 JOSE 02/12/21 11:41 Wound Center Nurse 1 #12 left sacral -Combined with other wound No -Current Size (cm) - Length 3.7 -Current Size (cm) - Width 2.8 -Current Size (cm) - Depth 2.3 -Total Square Cm 10.36 -Photo Taken No -Tunneling No -Undermining/Tunneling No -Circular Undermining No -Change in Wound Grade/Stage No -Exudate Amt None Present -Wound Margin Distinct, Outline Attached -Granulation Amt None Present (0 %) -Slough/Fibrin No -Necrosis Amt None Present (0 %) -Structure Exposed N/A -Texture (Sheyla-wound Skin Appearance) Assessed, Localized Edema -Moisture (Sheyla-wound Skin Appearance) Assessed -Color (Sheyla-wound Skin Appearance) Assessed -Temperature (Sheyla-wound Skin No Abnormality Appearance) (Pt Warm) -Tenderness on Palpation (Sheyla-wound No Skin Appearance) -Ulcer Cleansing Rinsed/ Irrigated with Saline -Foul Odor after Cleansing No #11 right sacral -Combined with other wound No -Current Size (cm) - Length 2.8 -Current Size (cm) - Width 1 -Current Size (cm) - Depth 0.1 -Total Square Cm 2.8 -Photo Taken No -Tunneling No -Undermining/Tunneling No -Circular Undermining No -Change in Wound Grade/Stage No -Exudate Amt None Present -Granulation Amt Small (1-33%) -Granulation Quality N/A -Slough/Fibrin Yes -Necrosis Amt Small (1-33%) -Necrotic Tissue Type Adherent Slough -Structure Exposed N/A -Texture (Sheyla-wound Skin Appearance) No Abnormality, Assessed -Moisture (Sheyla-wound Skin Appearance) No Abnormality, Assessed -Color (Sheyla-wound Skin Appearance) No Abnormality, Assessed -Temperature (Sheyla-wound Skin No Abnormality Appearance) (Pt Warm) -Tenderness on Palpation (Sheyla-wound Yes Skin Appearance) -Ulcer Cleansing Rinsed/ Irrigated with Saline -Foul Odor after Cleansing No #9 R Buttocks -Combined with other wound No -Current Size (cm) - Length 7.1 -Current Size (cm) - Width 2 -Current Size (cm) - Depth 2.1 -Total Square Cm 14.2 -Photo Taken No -Tunneling No -Undermining/Tunneling No -Circular Undermining No -Change in Wound Grade/Stage No -Exudate Amt None Present -Wound Margin Distinct, Outline Attached -Granulation Amt None Present (0 %) -Granulation Quality N/A -Slough/Fibrin No -Structure Exposed N/A -Texture (Sheyla-wound Skin Appearance) No Abnormality, Assessed -Moisture (Sheyla-wound Skin Appearance) No Abnormality, Assessed -Color (Sheyla-wound Skin Appearance) No Abnormality, Assessed -Temperature (Sheyla-wound Skin No Abnormality Appearance) (Pt Warm) -Tenderness on Palpation (Sheyla-wound No Skin Appearance) -Ulcer Cleansing Rinsed/ Irrigated with Saline -Foul Odor after Cleansing No #8 L Buttucks -Combined with other wound No -Current Size (cm) - Length 6.7 -Current Size (cm) - Width 3.5 -Current Size (cm) - Depth 3.5 -Total Square Cm 23.45 -Photo Taken No -Epithelialization None Present -Tunneling No -Undermining/Tunneling No -Circular Undermining No -Change in Wound Grade/Stage No -Exudate Amt None Present -Wound Margin Distinct, Outline Attached -Granulation Amt None Present (0 %) -Slough/Fibrin No -Necrosis Amt None Present (0 %) -Structure Exposed N/A -Texture (Sheyla-wound Skin Appearance) No Abnormality, Assessed -Moisture (Sheyla-wound Skin Appearance) No Abnormality, Assessed -Color (Sheyla-wound Skin Appearance) No Abnormality, Assessed -Temperature (Sheyla-wound Skin No Abnormality Appearance) (Pt Warm) -Tenderness on Palpation (Sheyla-wound No Skin Appearance) -Ulcer Cleansing Rinsed/ Irrigated with Saline -Foul Odor after Cleansing No WC - Nurse 2 - General Ulcer CM Notes Start: 02/12/21 11:13 Freq: Status: Active Protocol: Activity Type Activity Date Activity User E-Sign Co-Sign Detail Recorded Client Recorded Date Recorded By Document 02/12/21 11:49 MW [id number] 02/12/21 11:59 MW 02/12/21 11:49 Wound Center Nurse 2 #12 left sacral -Time 11:49 -Correct Patient Yes -Correct Side, Site, Position Yes -Correct Procedure Yes -Procedure Performed Yes -Type of Procedure Debridement -Clinical Debridement Subcutaneous -Tissue Removed Subcutaneous -Post Debridement (cm) - Length 4.0 -Post Debridement (cm) - Width 1.0 -Post Debridement (cm) - Depth 0.1 -Total Square (Post) (cm) 4.00 -Area of Debridement (cm) - Length 4.0 -Area of Debridement (cm) - Width 1.0 -Total Square (Area) (cm) 4.00 -Tunneling No -Undermining/Tunneling No -Circular Undermining No -Wound/Ulcer Outcome Not Healed -Ulcer Cleansing Rinsed/ Irrigated with Saline -Foul Odor after Cleansing No -Bioengineered Tissue No -Bleeding Controlled with Pressure -Offloading No -Treatment Response Procedure Tolerated Well -Debridement - Subq, 1st 20sq cm Yes -Debridement, SubQ, ea addt'l 20sq cm 2 or part thereof #11 right sacral -Time 11:49 -Correct Patient Yes -Correct Side, Site, Position Yes -Correct Procedure Yes -Procedure Performed Yes -Type of Procedure Debridement -Clinical Debridement Subcutaneous -Tissue Removed Subcutaneous -Post Debridement (cm) - Length 3.2 -Post Debridement (cm) - Width 0.4 -Post Debridement (cm) - Depth 0.1 -Total Square (Post) (cm) 1.28 -Area of Debridement (cm) - Length 3.2 -Area of Debridement (cm) - Width 0.4 -Total Square (Area) (cm) 1.28 -Tunneling No -Undermining/Tunneling No -Circular Undermining No -Wound/Ulcer Outcome Not Healed -Ulcer Cleansing Rinsed/ Irrigated with Saline -Foul Odor after Cleansing No -Bioengineered Tissue No -Bleeding Controlled with Pressure -Offloading No -Treatment Response Procedure Tolerated Well -Debridement - Subq, 1st 20sq cm No #9 R Buttocks -Time 11:50 -Correct Patient Yes -Correct Side, Site, Position Yes -Correct Procedure Yes -Procedure Performed Yes -Type of Procedure Debridement -Clinical Debridement Subcutaneous -Tissue Removed Subcutaneous -Post Debridement (cm) - Length 8.0 -Post Debridement (cm) - Width 3.0 -Post Debridement (cm) - Depth 1.8 -Total Square (Post) (cm) 24.00 -Area of Debridement (cm) - Length 8.0 -Area of Debridement (cm) - Width 3.0 -Total Square (Area) (cm) 24.00 -Tunneling No -Undermining/Tunneling No -Circular Undermining No -Wound/Ulcer Outcome Not Healed -Ulcer Cleansing Rinsed/ Irrigated with Saline -Foul Odor after Cleansing No -Bioengineered Tissue No -Bleeding Controlled with Pressure -Offloading No -Treatment Response Procedure Tolerated Well -Debridement - Subq, 1st 20sq cm No #8 L Buttucks -Time 11:50 -Correct Patient Yes -Correct Side, Site, Position Yes -Correct Procedure Yes -Procedure Performed Yes -Type of Procedure Debridement -Clinical Debridement Subcutaneous -Tissue Removed Subcutaneous -Post Debridement (cm) - Length 7.0 -Post Debridement (cm) - Width 4.0 -Post Debridement (cm) - Depth 1.5 -Total Square (Post) (cm) 28.00 -Area of Debridement (cm) - Length 7.0 -Area of Debridement (cm) - Width 4.0 -Total Square (Area) (cm) 28.00 -Tunneling No -Undermining/Tunneling No -Circular Undermining No -Wound/Ulcer Outcome Not Healed -Ulcer Cleansing Rinsed/ Irrigated with Saline -Foul Odor after Cleansing No -Bioengineered Tissue No -Bleeding Controlled with Pressure -Offloading No -Treatment Response Procedure Tolerated Well -Debridement - Subq, 1st 20sq cm No Pain Scale: 0-10 Numeric Is Patient Pain Free? Yes WC - Nurse 3 - General Ulcer D/C NN Start: 02/12/21 11:13 Freq: Status: Active Protocol: Activity Type Activity Date Activity User E-Sign Co-Sign Detail Recorded Client Recorded Date Recorded By Document 02/12/21 12:01 HERBER [id number] 02/12/21 12:04 HERBER 02/12/21 12:01 Wound Care Nurse 3 #12 left sacral -Ulcer Cleansing Rinsed/ Irrigated with Saline -Foul Odor after Cleansing No -Negative Pressure Wound Therapy N/A -Primary Dressing Applied Aquacel Extra,C Hydrogel ($), Mepilex Border -Primary Dressing Covered/Secured with Dry Gauze, Secured with Tape -Aquacel Extra 0 -Mepilex Border 0 #11 right sacral -Ulcer Cleansing Rinsed/ Irrigated with Saline -Foul Odor after Cleansing No -Primary Dressing Covered/Secured with Dry Gauze, Secured with Tape #9 R Buttocks -Ulcer Cleansing Rinsed/ Irrigated with Saline -Foul Odor after Cleansing No -Primary Dressing Covered/Secured with Dry Gauze, Secured with Tape #8 L Buttucks -Ulcer Cleansing Rinsed/ Irrigated with Saline -Foul Odor after Cleansing No -Primary Dressing Covered/Secured with Dry Gauze, Secured with Tape -Other Covering patient's caregiver brought own supplies from home. caregiver did his dress Pain Scale: 0-10 Numeric Is Patient Pain Free? Yes WC - Visit Discharge Discharge Condition Stable Ambulatory Status Wheelchair Transportation Private Auto Accompanied by caregiver Additional Wound Wound debrided: Right sacral Type of Debridement: Excisional debridement Anesthesia Used: 4% Lidocaine Solution Depth: Down to and including healthy tissue and in the subcutaneous layer Instrument Used: 3mm curette Tissue Removed: Slough and devitalized tissue Severity: Fat Layer Exposed Amount of bleeding with debridement: Mild Bleeding Controlled with: Pressure Patient tolerated procedure: Patient tolerated procedure well Additional Wound Wound debrided: Right Buttock Wound Grade/Stage: Stage IV Type of Debridement: Excisional debridement Anesthesia Used: 4% Lidocaine Solution Depth: Down to and including healthy tissue and in the subcutaneous layer Percentage of wound debrided: 100 Instrument Used: 5mm curette Tissue Removed: Slough and devitalized tissue Severity: Fat Layer Exposed Amount of bleeding with debridement: Mild Bleeding Controlled with: Pressure Patient tolerated procedure: Patient tolerated procedure well Additional Wound Wound debrided: Left buttock Type of Debridement: Excisional debridement Depth: Down to and including healthy tissue and in the subcutaneous layer Percentage of wound debrided: 100 Instrument Used: 5mm curette Tissue Removed: Slough and devitalized tissue Severity: Fat Layer Exposed Amount of bleeding with debridement: Mild Bleeding Controlled with: Pressure Patient tolerated procedure: Patient tolerated procedure well Assessment/Plan Assessment/Plan (1) Sacral decubitus ulcer, stage IV: CODE(S): L89.154 - Pressure ulcer of sacral region, stage 4 (2) Decubitus ulcer of right buttock, stage 4: CODE(S): L89.314 - Pressure ulcer of right buttock, stage 4 (3) Decubitus ulcer of left buttock, stage 4: CODE(S): L89.324 - Pressure ulcer of left buttock, stage 4 (4) Chronic osteomyelitis involving pelvic region and thigh: CODE(S): M86.659 - Other chronic osteomyelitis, unspecified thigh (5) Paraplegia: CODE(S): G82.20 - Paraplegia, unspecified PLAN: Debridement done as documented above, procedure well-tolerated. Some worsening of the right sacral and right buttock. As above above, they do no report any new changes or concerns. Continue 10 minute Acetic acid soak to all ulcers,then calcium alginate/collagen dressing. Change daily to twice daily depending on drainage. May apply Adaptic to the healed portion of the sacral. Continue optimal dietary and protein intake. Offloading strongly recommended. His questions were answered and they were advised to call with any further questions or concerns. Follow up in 2 weeks. This note was generated with [email or web address] software. It may contain incorrect words, spelling, and punctuation that were not noted in checking the note before signing. This note was generated with [employer] software. It may contain incorrect words, spelling, and punctuation that were not noted in checking the note before signing.
[2021-03-12 11:22] VITALS: BP 124/75; PULSE 65; RESP 20; TEMP 36.3; BMI 27.8
--- NOTE | 2021-03-12 12:16 | PN.PCM_ITS ---
History of Present Illness Date of Service: 03/12/21 Chief Complaint: Non healing, chronic decubitus pressure ulcers, stage IV, with osteomyelitis - thigh, buttock, sacrum. History of Wound: Mr. Joyce is a 33yo well known to the wound center but was last seen here over a month ago. Initial sacral ulcer was said to have started in November and Buttock ulcers were noted subsequently. He has had an extensive hospital stay over the last couple of months following a work related injury. Both during his hopsital and jail stays, he had wound care ranging from surgical debridement, wound vac and collagen use. He was scheduled to be restarted on his wound Vac prior to his discharge from the [place]. He reports significant drainage from the wounds. Also of note is a history of osteomyelitis for which he was on a 6 week IV antibiotic. His however states they were informed that he had developed chronic extensive pelvic area osteomyelitis. He feels well otherwise at this time and denies chills, fever,nausea, vomitting or change in bowel habit. 02/22/2019: Above, he was last seen here over a month ago. Had an extensive hospital stay [facility] due to complications from prior neck surgery. They state that his ulcers have been stable. Been doing the acetic a kelly soak for 10 minutes and then calcium alginate/collagen dressings. Denies any concerns at this time. Progress of Wound: Overall stable ulcers. No significant changes Subjective Subjective No new concerns at this time. No chills, fever or feeling of unwell. Objective Data Objective Data Vital Signs: Vital Signs Temp Pulse Resp BP 97.3 F L 65 20 H 124/75 H 03/12/21 11:22 03/12/21 11:22 03/12/21 11:22 03/12/21 11:22 Body Mass Index (BMI) 27.8 Charges/Coding Procedures Integumentary 111xxx-113xx: 79570 Oxana subq tissue 20 sq cm/< Add On Codes: 94313 Oxana subq tissue add-on (X1. Additional square centimeter debrided, please refer to clinical note) Physical Exam Const alert and oriented x3 General Appearance: cooperative and comfortable HEENT normocephalic and hearing grossly normal bilaterally Head and Scalp: normal to inspection and normocephalic Neck full ROM and supple Resp normal respiratory effort Effort and Inspection: able to speak in complete sentences Skin Wounds: wounds noted Debridement Note Debridement Note Wound debrided: Left Sacral Type of Debridement: Excisional debridement Anesthesia Used: 4% Lidocaine Solution Depth: Down to and including healthy tissue and in the subcutaneous layer Percentage of wound debrided: 100 Instrument Used: 3mm curette Tissue Removed: Slough and devitalized tissue Severity: Fat Layer Exposed Amount of bleeding with debridement: Mild Bleeding Controlled with: Pressure Patient tolerated procedure: Patient tolerated procedure well Post-Debridement Measurements and Additional Note: Post-Debridement Measurements/Treatment - Nurse 1 - General Ulcer Assessment Start: 02/12/21 11:13 Freq: Status: Active Protocol: JUDITH Activity Type Activity Date Activity User E-Sign Co-Sign Detail Recorded Client Recorded Date Recorded By Document 02/12/21 11:32 KR [id number] 02/12/21 11:39 KR Document 02/12/21 11:41 AK [id number] 02/12/21 11:47 AK Document 03/12/21 11:22 DL [id number] 03/12/21 11:28 DL 02/12/21 02/12/21 03/12/21 11:32 11:41 11:22 - Today's Visit Information Type of service Follow-up Visit Follow-up Visit Follow-up Visit (Physician/CORK CUTTER (Physician/CORK CUTTER (Physician/CORK CUTTER ) ) ) Arrival Mode Wheelchair Wheelchair Wheelchair Transfer Assistance Manual Whit Lift Transfer Assist (Other) 4 4 assist Patient Identification Verified (Name & Yes Yes ) Patient Requires Transmission-Based No No Precautions Safety Precautions NA Finger Stick Blood Sugar(mg/dl) (if 119 indicated): Blood Sugar Stated by Patient Height and Weight Body Mass Index (BMI) 27.8 27.8 27.8 BMI Classification Overweight Overweight Overweight Vital Signs Temperature (97.8 F-99.1 F) 98.2 F 97.3 F L Temperature Source Temporal Temporal Pulse Rate (60-100) 77 65 Pulse Location Monitor Monitor Respiratory Rate (12-18) 20 H Respiratory rate source Observation Blood Pressure (90/60-120/80) 132/69 H 124/75 H Blood Pressure Mean (mm Hg) 90 91 Source Monitor Monitor History Since Last Visit- (Skip if this is Patient's initial visit) Have you changed medications since your No last visit? Any new allergies or adverse reactions No Had a fall/change in ADL's that may No increase risk of falls Signs or symptoms of abuse and/or No neglect since last visit Have you been in the hospital since your No last visit? Has dressing in place as prescribed Yes Has compression in place as prescribed N/A Has offloadiing in place as prescribed Yes Experienced any changes in pain level or No management Left Footwear Regular Shoe Right Footwear Regular Shoe WC - Nurse 1 - General Ulcer Measurement Start: 02/12/21 11:13 Freq: Status: Active Protocol: Activity Type Activity Date Activity User E-Sign Co-Sign Detail Recorded Client Recorded Date Recorded By Document 02/12/21 11:41 AK [id number] 02/12/21 11:47 AK Document 03/12/21 11:22 DL [id number] 03/12/21 11:28 DL 02/12/21 03/12/21 11:41 11:22 Wound Center Nurse 1 #12 left sacral -Combined with other wound No -Current Size (cm) - Length 3.7 3.9 -Current Size (cm) - Width 2.8 1.3 -Current Size (cm) - Depth 2.3 0.6 -Total Square Cm 10.36 5.07 -Photo Taken No No -Tunneling No -Undermining/Tunneling No -Circular Undermining No -Change in Wound Grade/Stage No -Exudate Amt None Present Medium -Exudate Type Serosanguineous -Wound Margin Distinct, Distinct, Outline Outline Attached Attached -Granulation Amt None Present (0 Medium (34-66%) %) -Granulation Quality Ricardo -Slough/Fibrin No -Necrosis Amt None Present (0 Small (1-33%) %) -Structure Exposed N/A N/A -Texture (Sheyla-wound Skin Appearance) Assessed, Scarring Localized Edema -Moisture (Sheyla-wound Skin Appearance) Assessed No Abnormality -Color (Sheyla-wound Skin Appearance) Assessed No Abnormality -Temperature (Sheyla-wound Skin No Abnormality No Abnormality Appearance) (Pt Warm) (Pt Warm) -Tenderness on Palpation (Sheyla-wound No No Skin Appearance) -Ulcer Cleansing Rinsed/ Soap and Water Irrigated with Saline -Foul Odor after Cleansing No No #11 right sacral -Combined with other wound No -Current Size (cm) - Length 2.8 3.2 -Current Size (cm) - Width 1 0.7 -Current Size (cm) - Depth 0.1 0.3 -Total Square Cm 2.8 2.24 -Photo Taken No No -Tunneling No -Undermining/Tunneling No -Circular Undermining No -Change in Wound Grade/Stage No -Exudate Amt None Present -Exudate Type Serosanguineous -Wound Margin Distinct, Outline Attached -Granulation Amt Small (1-33%) Medium (34-66%) -Granulation Quality N/A -Slough/Fibrin Yes -Necrosis Amt Small (1-33%) Medium (34-66%) -Necrotic Tissue Type Adherent Slough Adherent Slough -Structure Exposed N/A N/A -Texture (Sheyla-wound Skin Appearance) No Abnormality, Scarring Assessed -Moisture (Sheyla-wound Skin Appearance) No Abnormality, No Abnormality Assessed -Color (Sheyla-wound Skin Appearance) No Abnormality, No Abnormality Assessed -Temperature (Sheyla-wound Skin No Abnormality No Abnormality Appearance) (Pt Warm) (Pt Warm) -Tenderness on Palpation (Sheyla-wound Yes No Skin Appearance) -Ulcer Cleansing Rinsed/ Soap and Water Irrigated with Saline -Foul Odor after Cleansing No No #9 R Buttocks -Combined with other wound No -Current Size (cm) - Length 7.1 8.5 -Current Size (cm) - Width 2 3.3 -Current Size (cm) - Depth 2.1 1.8 -Total Square Cm 14.2 28.05 -Photo Taken No No -Tunneling No -Undermining/Tunneling No -Circular Undermining No -Change in Wound Grade/Stage No -Exudate Amt None Present Medium -Exudate Type Serosanguineous -Wound Margin Distinct, Distinct, Outline Outline Attached Attached -Granulation Amt None Present (0 Large (67-100%) %) -Granulation Quality N/A Red -Slough/Fibrin No -Necrosis Amt Small (1-33%) -Necrotic Tissue Type Adherent Slough -Structure Exposed N/A N/A -Texture (Sheyla-wound Skin Appearance) No Abnormality, Scarring Assessed -Moisture (Sheyla-wound Skin Appearance) No Abnormality, No Abnormality Assessed -Color (Sheyla-wound Skin Appearance) No Abnormality, No Abnormality Assessed -Temperature (Sheyla-wound Skin No Abnormality No Abnormality Appearance) (Pt Warm) (Pt Warm) -Tenderness on Palpation (Sheyla-wound No No Skin Appearance) -Ulcer Cleansing Rinsed/ Soap and Water Irrigated with Saline -Foul Odor after Cleansing No No #8 L Buttucks -Combined with other wound No -Current Size (cm) - Length 6.7 7 -Current Size (cm) - Width 3.5 4.3 -Current Size (cm) - Depth 3.5 2.1 -Total Square Cm 23.45 30.1 -Photo Taken No No -Epithelialization None Present -Tunneling No -Undermining/Tunneling No -Circular Undermining No -Change in Wound Grade/Stage No -Exudate Amt None Present Medium -Exudate Type Serosanguineous -Wound Margin Distinct, Distinct, Outline Outline Attached Attached -Granulation Amt None Present (0 Large (67-100%) %) -Granulation Quality Red -Slough/Fibrin No -Necrosis Amt None Present (0 Small (1-33%) %) -Necrotic Tissue Type Adherent Slough -Structure Exposed N/A -Texture (Sheyla-wound Skin Appearance) No Abnormality, Rash Assessed -Moisture (Sheyla-wound Skin Appearance) No Abnormality, No Abnormality Assessed -Color (Sheyla-wound Skin Appearance) No Abnormality, No Abnormality Assessed -Temperature (Sheyla-wound Skin No Abnormality No Abnormality Appearance) (Pt Warm) (Pt Warm) -Tenderness on Palpation (Sheyla-wound No No Skin Appearance) -Ulcer Cleansing Rinsed/ Soap and Water Irrigated with Saline -Foul Odor after Cleansing No No WC - Nurse 2 - General Ulcer CM Notes Start: 02/12/21 11:13 Freq: Status: Active Protocol: Activity Type Activity Date Activity User E-Sign Co-Sign Detail Recorded Client Recorded Date Recorded By Document 02/12/21 11:49 MW [id number] 02/12/21 11:59 MW Document 03/12/21 11:41 MW [id number] 03/12/21 11:57 MW Edit Result 03/12/21 11:41 MW (1) [id number] 03/12/21 11:57 MW (1) #12 left sacral - Debridement, SubQ, ea addt'l 20sq cm => 2 or part thereof 02/12/21 03/12/21 11:49 11:41 Wound Center Nurse 2 #12 left sacral -Time 11:49 11:41 -Correct Patient Yes Yes -Correct Side, Site, Position Yes Yes -Correct Procedure Yes Yes -Procedure Performed Yes Yes -Type of Procedure Debridement Debridement -Clinical Debridement Subcutaneous Subcutaneous -Tissue Removed Subcutaneous Subcutaneous -Post Debridement (cm) - Length 4.0 3.5 -Post Debridement (cm) - Width 1.0 1.2 -Post Debridement (cm) - Depth 0.1 0.1 -Total Square (Post) (cm) 4.00 4.20 -Area of Debridement (cm) - Length 4.0 3.5 -Area of Debridement (cm) - Width 1.0 1.2 -Total Square (Area) (cm) 4.00 4.20 -Tunneling No No -Undermining/Tunneling No No -Circular Undermining No No -Wound/Ulcer Outcome Not Healed Not Healed -Ulcer Cleansing Rinsed/ Rinsed/ Irrigated with Irrigated with Saline Saline -Foul Odor after Cleansing No No -Bioengineered Tissue No No -Bleeding Controlled with Pressure Pressure -Offloading No No -Treatment Response Procedure Procedure Tolerated Well Tolerated Well -Debridement - Subq, 1st 20sq cm Yes Yes -Debridement, SubQ, ea addt'l 20sq cm 2 2 or part thereof #11 right sacral -Time 11:49 11:42 -Correct Patient Yes Yes -Correct Side, Site, Position Yes Yes -Correct Procedure Yes Yes -Procedure Performed Yes Yes -Type of Procedure Debridement Debridement -Clinical Debridement Subcutaneous Subcutaneous -Tissue Removed Subcutaneous Subcutaneous -Post Debridement (cm) - Length 3.2 3.3 -Post Debridement (cm) - Width 0.4 0.5 -Post Debridement (cm) - Depth 0.1 0.1 -Total Square (Post) (cm) 1.28 1.65 -Area of Debridement (cm) - Length 3.2 3.3 -Area of Debridement (cm) - Width 0.4 0.5 -Total Square (Area) (cm) 1.28 1.65 -Tunneling No No -Undermining/Tunneling No No -Circular Undermining No No -Wound/Ulcer Outcome Not Healed Not Healed -Ulcer Cleansing Rinsed/ Rinsed/ Irrigated with Irrigated with Saline Saline -Foul Odor after Cleansing No No -Bioengineered Tissue No No -Bleeding Controlled with Pressure Pressure -Offloading No No -Treatment Response Procedure Procedure Tolerated Well Tolerated Well -Debridement - Subq, 1st 20sq cm No No #9 R Buttocks -Time 11:50 11:42 -Correct Patient Yes Yes -Correct Side, Site, Position Yes Yes -Correct Procedure Yes Yes -Procedure Performed Yes Yes -Type of Procedure Debridement Debridement -Clinical Debridement Subcutaneous Subcutaneous -Tissue Removed Subcutaneous Subcutaneous -Post Debridement (cm) - Length 8.0 8.0 -Post Debridement (cm) - Width 3.0 3.0 -Post Debridement (cm) - Depth 1.8 1.6 -Total Square (Post) (cm) 24.00 24.00 -Area of Debridement (cm) - Length 8.0 8.0 -Area of Debridement (cm) - Width 3.0 3.0 -Total Square (Area) (cm) 24.00 24.00 -Tunneling No No -Undermining/Tunneling No No -Circular Undermining No No -Wound/Ulcer Outcome Not Healed Not Healed -Ulcer Cleansing Rinsed/ Rinsed/ Irrigated with Irrigated with Saline Saline -Foul Odor after Cleansing No No -Bioengineered Tissue No No -Bleeding Controlled with Pressure Pressure -Offloading No No -Treatment Response Procedure Procedure Tolerated Well Tolerated Well -Debridement - Subq, 1st 20sq cm No No #8 L Buttucks -Time 11:50 11:42 -Correct Patient Yes Yes -Correct Side, Site, Position Yes Yes -Correct Procedure Yes Yes -Procedure Performed Yes Yes -Type of Procedure Debridement Debridement -Clinical Debridement Subcutaneous Subcutaneous -Tissue Removed Subcutaneous Subcutaneous -Post Debridement (cm) - Length 7.0 7.5 -Post Debridement (cm) - Width 4.0 4.0 -Post Debridement (cm) - Depth 1.5 1.9 -Total Square (Post) (cm) 28.00 30.00 -Area of Debridement (cm) - Length 7.0 7.5 -Area of Debridement (cm) - Width 4.0 4.0 -Total Square (Area) (cm) 28.00 30.00 -Tunneling No No -Undermining/Tunneling No No -Circular Undermining No No -Wound/Ulcer Outcome Not Healed Not Healed -Ulcer Cleansing Rinsed/ Rinsed/ Irrigated with Irrigated with Saline Saline -Foul Odor after Cleansing No No -Bioengineered Tissue No No -Bleeding Controlled with Pressure Pressure -Offloading No No -Treatment Response Procedure Procedure Tolerated Well Tolerated Well -Debridement - Subq, 1st 20sq cm No No Pain Scale: 0-10 Numeric Is Patient Pain Free? Yes Yes - Nurse 3 - General Ulcer D/C NN Start: 02/12/21 11:13 Freq: Status: Active Protocol: Activity Type Activity Date Activity User E-Sign Co-Sign Detail Recorded Client Recorded Date Recorded By Document 02/12/21 12:01 [id number] 02/12/21 12:04 JF Document 03/12/21 11:57 MW [id number] 03/12/21 12:02 MW 02/12/21 03/12/21 12:01 11:57 Wound Care Nurse 3 #12 left sacral -Ulcer Cleansing Rinsed/ Rinsed/ Irrigated with Irrigated with Saline Saline -Foul Odor after Cleansing No No -Negative Pressure Wound Therapy N/A N/A -Primary Dressing Applied Aquacel Extra,C Hydrogel ($), Mepilex Border -Other Dressing collagen, calcium alginate -Primary Dressing Covered/Secured with Dry Gauze, Secured with Tape -Other Covering mepilex -Aquacel Extra 0 -Mepilex Border 0 #11 right sacral -Ulcer Cleansing Rinsed/ Rinsed/ Irrigated with Irrigated with Saline Saline -Foul Odor after Cleansing No No -Negative Pressure Wound Therapy N/A -Other Dressing collagen, calcium alginate -Primary Dressing Covered/Secured with Dry Gauze, Secured with Tape -Other Covering mepilex #9 R Buttocks -Ulcer Cleansing Rinsed/ Not Cleansed Irrigated with Saline -Foul Odor after Cleansing No -Other Dressing collagen, calcium alginate -Primary Dressing Covered/Secured with Dry Gauze, Secured with Tape -Other Covering mepilex #8 L Buttucks -Ulcer Cleansing Rinsed/ Not Cleansed Irrigated with Saline -Foul Odor after Cleansing No -Negative Pressure Wound Therapy N/A -Other Dressing collagen, calcium alginate -Primary Dressing Covered/Secured with Dry Gauze, Secured with Tape -Other Covering patient's mepilex caregiver brought own supplies from home. caregiver did his dress Treatment Response Procedure Tolerated Well Pain Scale: 0-10 Numeric Is Patient Pain Free? Yes Yes Teaching: Wound Center Dressing Your Wound -Person Taught Patient,Primary Caregiver -Teaching Method Discussion -Response to teaching Verbalize understanding WC - Visit Discharge Discharge Condition Stable Stable Ambulatory Status Wheelchair Wheelchair Transportation Private Auto Private Auto Accompanied by caregiver Medication Reconcilliation completed & No provided to patient/care provider Clinical Summary of Care Provided Yes Additional Wound Wound debrided: Right Sacral Type of Debridement: Excisional debridement Anesthesia Used: 4% Lidocaine Solution Depth: Down to and including healthy tissue and in the subcutaneous layer Percentage of wound debrided: 100 Instrument Used: 3mm curette and 5mm curette Tissue Removed: Slough and devitalized tissue Severity: Fat Layer Exposed Amount of bleeding with debridement: Mild Bleeding Controlled with: Pressure Patient tolerated procedure: Patient tolerated procedure well Additional Wound Wound debrided: Left buttock Type of Debridement: Excisional debridement Anesthesia Used: 4% Lidocaine Solution Depth: Down to and including healthy tissue and in the subcutaneous layer Percentage of wound debrided: 100 Instrument Used: 7mm curette Tissue Removed: Slough and devitalized tissue Severity: Fat Layer Exposed Amount of bleeding with debridement: Mild Bleeding Controlled with: Pressure Patient tolerated procedure: Patient tolerated procedure well Additional Wound Wound debrided: Right buttock Type of Debridement: Excisional debridement Anesthesia Used: 4% Lidocaine Solution Depth: Down to and including healthy tissue and in the subcutaneous layer Percentage of wound debrided: 100 Instrument Used: 7mm curette Tissue Removed: Slough and devitalized tissue Severity: Fat Layer Exposed Amount of bleeding with debridement: Mild Bleeding Controlled with: Pressure Patient tolerated procedure: Patient tolerated procedure well Assessment/Plan Assessment/Plan (1) Sacral decubitus ulcer, stage IV: CODE(S): L89.154 - Pressure ulcer of sacral region, stage 4 (2) Decubitus ulcer of right buttock, stage 4: CODE(S): L89.314 - Pressure ulcer of right buttock, stage 4 (3) Decubitus ulcer of left buttock, stage 4: CODE(S): L89.324 - Pressure ulcer of left buttock, stage 4 (4) Chronic osteomyelitis involving pelvic region and thigh: CODE(S): M86.659 - Other chronic osteomyelitis, unspecified thigh (5) Paraplegia: CODE(S): G82.20 - Paraplegia, unspecified PLAN: Debridement done as documented above, procedure well-tolerated. Overall stable, no new concerns at this time. Continue 10 minute Acetic acid soak to all ulcers,then calcium alginate/collagen dressing. Change daily to twice daily depending on drainage. May apply Adaptic to the healed portion of the sacral. Continue optimal dietary and protein intake. Offloading strongly recommended. His questions were answered and they were advised to call with any further questions or concerns. Follow up in 2 weeks. This note was generated with [employer] software. It may contain incorrect words, spelling, and punctuation that were not noted in checking the note before signing. This note was generated with [employer] software. It may contain incorrect words, spelling, and punctuation that were not noted in checking the note before signing.
== END 2021-03-13 23:59 ==
LOC: WC 11:15
PROVIDERS: PCP Internal Medicine; Visit Provider Internal Medicine
DX: L89.154 Pressure ulcer of sacral region, stage 4 (principal); L89.314 Pressure ulcer of right buttock, stage 4; L89.324 Pressure ulcer of left buttock, stage 4; M86.69 Other chronic osteomyelitis, multiple sites; G82.20 Paraplegia, unspecified; E66.3 Overweight; Z68.27 Body mass index [BMI] 27.0-27.9, adult; Z79.899 Other long term (current) drug therapy
CPT/HCPCS: 11042; 11045

== ENCOUNTER 2021-03-26 11:15 | Outpatient (RCR) | payer OTHER, SELFPAY ==
[2021-03-14 00:22] VITALS: BP 124/75; PULSE 65; RESP 20; TEMP 36.3; BMI 27.8
[2021-03-26 11:12] VITALS: BP 120/75; PULSE 74; RESP 16; TEMP 36.3; BMI 27.8
--- NOTE | 2021-03-26 11:46 | WC ---
acetic acid were to dry rinse with saline apply skin prep. Apply triple helix powder to wound bed. Cover with calcium alginate and allergen life bandages. His nurse does the entire nurse 3.
--- NOTE | 2021-03-26 11:59 | PCM.WC.PN ---
History of Present Illness Date of Service: 03/26/21 Chief Complaint: Non healing, chronic decubitus pressure ulcers, stage IV, with osteomyelitis - thigh, buttock, sacrum. History of Wound: Mr. Joyce is a 33yo well known to the wound center but was last seen here over a month ago. Initial sacral ulcer was said to have started in November and Buttock ulcers were noted subsequently. He has had an extensive hospital stay over the last couple of months following a work related injury. Both during his hopsital and prison stays, he had wound care ranging from surgical debridement, wound vac and collagen use. He was scheduled to be restarted on his wound Vac prior to his [facility] from [facility] [place]. He reports significant drainage from the wounds. Also of note is a history of osteomyelitis for which he was on a 6 week IV antibiotic. His however states they were informed that he had developed chronic extensive pelvic area osteomyelitis. He feels well otherwise at this time and denies chills, fever,nausea, vomitting or change in bowel habit. 02/22/2019: Above, he was last seen here over a month ago. Had an extensive hospital stay [facility] due to complications from prior neck surgery. They state that his ulcers have been stable. Been doing the acetic acid soak for 10 minutes and then calcium alginate/collagen dressings. Denies any concerns at this time. Progress of Wound: Stable Ulcers. No new concerns at this time. Subjective Subjective Patient denies any new concerns. Objective Data Objective Data Vital Signs: Vital Signs Temp Pulse Resp BP 97.4 F L 74 16 120/75 03/26/21 11:12 03/26/21 11:12 03/26/21 11:12 03/26/21 11:12 Body Mass Index (BMI) 27.8 Charges/Coding Procedures Integumentary 111xxx-113xx: 74093 Oxana subq tissue 20 sq cm/< Add On Codes: 40088 Oxana subq tissue add-on (x3.Additional square centimeter debrided, please refer to clinical note.) Physical Exam Const alert and oriented x3 General Appearance: cooperative and comfortable HEENT normocephalic and hearing grossly normal bilaterally Head and Scalp: normal to inspection and normocephalic Neck full ROM and supple Resp normal respiratory effort Effort and Inspection: able to speak in complete sentences Skin Wounds: wounds noted Debridement Note Debridement Note Wound debrided: Left Sacral Type of Debridement: Excisional debridement Anesthesia Used: 4% Lidocaine Solution Depth: Down to and including healthy tissue and in the subcutaneous layer Percentage of wound debrided: 100 Instrument Used: 5mm curette Tissue Removed: Slough and devitalized tissue Severity: Fat Layer Exposed Amount of bleeding with debridement: Mild Bleeding Controlled with: Pressure Patient tolerated procedure: Patient tolerated procedure well Post-Debridement Measurements and Additional Note: Post-Debridement Measurements/Treatment ARTIS - Nurse 1 - General Ulcer Assessment Start: 03/26/21 11:09 Freq: Status: Active Protocol: JUDITH Activity Type Activity Date Activity User E-Sign Co-Sign Detail Recorded Client Recorded Date Recorded By Document 03/26/21 11:12 HERBER [id number] 03/26/21 11:19 HERBER 03/26/21 11:12 ARTIS Lee Today's Visit Information Type of service Follow-up Visit (Physician/AIR BRAKE ADJUSTER ) Arrival Mode Wheelchair Transfer Assistance Whit Lift Accompanied by caregiver Patient Identification Verified (Name & Yes ) Patient Requires Transmission-Based No Precautions Height and Weight Body Mass Index (BMI) 27.8 BMI Classification Overweight Vital Signs Temperature (97.8 F-99.1 F) 97.4 F L Temperature Source Temporal Pulse Rate (60-100) 74 Pulse Location Monitor Respiratory Rate (12-18) 16 Respiratory rate source Observation Blood Pressure (90/60-120/80) 120/75 Blood Pressure Mean (mm Hg) 90 Source Monitor Position Sitting Blood Pressure Location Right Arm History Since Last Visit- (Skip if this is Patient's initial visit) Have you changed medications since your No last visit? Any new allergies or adverse reactions No Had a fall/change in ADL's that may No increase risk of falls Signs or symptoms of abuse and/or No neglect since last visit Have you been in the hospital since your No last visit? Has dressing in place as prescribed Yes Has offloadiing in place as prescribed Yes Experienced any changes in pain level or No management Left Footwear Regular Shoe Right Footwear Regular Shoe Pain Scale: 0-10 Numeric Is Patient Pain Free? Yes ARTIS Lee Nurse 1 - General Ulcer Measurement Start: 03/26/21 11:09 Freq: Status: Active Protocol: Activity Type Activity Date Activity User E-Sign Co-Sign Detail Recorded Client Recorded Date Recorded By Document 03/26/21 11:12 HERBER [id number] 03/26/21 11:19 03/26/21 11:12 Wound Center Nurse 1 #12 left sacral -Combined with other wound No -Current Size (cm) - Length 3.8 -Current Size (cm) - Width 1 -Current Size (cm) - Depth 0.2 -Total Square Cm 3.8 -Photo Taken No -Epithelialization None Present -Tunneling No -Undermining/Tunneling No -Circular Undermining No -Exudate Amt Medium -Exudate Type Serosanguineous -Wound Margin Flat & Intact -Granulation Amt Large (67-100%) -Granulation Quality Red -Slough/Fibrin Yes -Necrosis Amt Small (1-33%) -Necrotic Tissue Type Adherent Slough -Structure Exposed N/A -Texture (Sheyla-wound Skin Appearance) Assessed, Scarring -Moisture (Sheyla-wound Skin Appearance) Assessed,Dry/ Scaly -Color (Sheyla-wound Skin Appearance) Assessed -Temperature (Sheyla-wound Skin No Abnormality Appearance) (Pt Warm) -Tenderness on Palpation (Sheyla-wound No Skin Appearance) -Ulcer Cleansing Wound Cleanser -Foul Odor after Cleansing No #11 right sacral -Combined with other wound No -Current Size (cm) - Length 3.3 -Current Size (cm) - Width 0.5 -Current Size (cm) - Depth 0.2 -Total Square Cm 1.65 -Photo Taken No -Epithelialization Small 1-33% -Tunneling No -Undermining/Tunneling No -Circular Undermining No -Exudate Amt Medium -Exudate Type Serosanguineous -Wound Margin Flat & Intact -Granulation Amt Large (67-100%) -Granulation Quality Red -Slough/Fibrin Yes -Necrosis Amt Small (1-33%) -Necrotic Tissue Type Adherent Slough -Structure Exposed N/A -Texture (Sheyla-wound Skin Appearance) Assessed, Scarring -Moisture (Sheyla-wound Skin Appearance) Assessed,Dry/ Scaly -Color (Sheyla-wound Skin Appearance) Assessed -Temperature (Sheyla-wound Skin No Abnormality Appearance) (Pt Warm) -Tenderness on Palpation (Sheyla-wound No Skin Appearance) -Ulcer Cleansing Wound Cleanser -Foul Odor after Cleansing No #9 R Buttocks -Combined with other wound No -Current Size (cm) - Length 8 -Current Size (cm) - Width 2.5 -Current Size (cm) - Depth 1.6 -Total Square Cm 20.0 -Photo Taken No -Epithelialization None Present -Tunneling No -Undermining/Tunneling No -Circular Undermining No -Exudate Amt Large -Exudate Type Serosanguineous -Wound Margin Flat & Intact -Granulation Amt Large (67-100%) -Granulation Quality Red -Slough/Fibrin Yes -Necrosis Amt Small (1-33%) -Necrotic Tissue Type Eschar -Structure Exposed N/A -Texture (Sheyla-wound Skin Appearance) Assessed, Scarring -Moisture (Sheyla-wound Skin Appearance) Assessed,Dry/ Scaly -Color (Sheyla-wound Skin Appearance) Assessed -Temperature (Sheyla-wound Skin No Abnormality Appearance) (Pt Warm) -Tenderness on Palpation (Sheyla-wound No Skin Appearance) -Ulcer Cleansing Wound Cleanser -Foul Odor after Cleansing No #8 L Buttucks -Combined with other wound No -Current Size (cm) - Length 8.1 -Current Size (cm) - Width 2.5 -Current Size (cm) - Depth 1.3 -Total Square Cm 20.25 -Photo Taken No -Epithelialization None Present -Undermining/Tunneling No -Circular Undermining No -Exudate Amt Large -Exudate Type Serosanguineous -Wound Margin Flat & Intact -Granulation Amt Large (67-100%) -Granulation Quality Red -Slough/Fibrin Yes -Necrosis Amt Small (1-33%) -Necrotic Tissue Type Adherent Slough -Structure Exposed N/A -Texture (Sheyla-wound Skin Appearance) Assessed, Scarring -Moisture (Sheyla-wound Skin Appearance) Assessed,Dry/ Scaly -Color (Sheyla-wound Skin Appearance) Assessed -Temperature (Sheyla-wound Skin No Abnormality Appearance) (Pt Warm) -Tenderness on Palpation (Sheyla-wound No Skin Appearance) -Ulcer Cleansing Wound Cleanser -Foul Odor after Cleansing No Lower Limb Edema Present NA WC - Nurse 2 - General Ulcer CM Notes Start: 03/26/21 11:09 Freq: Status: Active Protocol: Activity Type Activity Date Activity User E-Sign Co-Sign Detail Recorded Client Recorded Date Recorded By Document 03/26/21 11:26 MW [id number] 03/26/21 11:43 MW 03/26/21 11:26 Wound Center Nurse 2 #12 left sacral -Time 11:28 -Correct Patient Yes -Correct Side, Site, Position Yes -Correct Procedure Yes -Procedure Performed Yes -Type of Procedure Debridement -Clinical Debridement Subcutaneous -Tissue Removed Subcutaneous -Post Debridement (cm) - Length 3.4 -Post Debridement (cm) - Width 0.7 -Post Debridement (cm) - Depth 0.1 -Total Square (Post) (cm) 2.38 -Area of Debridement (cm) - Length 3.4 -Area of Debridement (cm) - Width 1.7 -Total Square (Area) (cm) 5.78 -Tunneling No -Undermining/Tunneling No -Circular Undermining No -Wound/Ulcer Outcome Not Healed -Ulcer Cleansing Rinsed/ Irrigated with Saline -Foul Odor after Cleansing No -Bioengineered Tissue No -Bleeding Controlled with Pressure -Offloading No -Treatment Response Procedure Tolerated Well -Debridement - Subq, 1st 20sq cm Yes #11 right sacral -Time 11:28 -Correct Patient Yes -Correct Side, Site, Position Yes -Correct Procedure Yes -Procedure Performed Yes -Type of Procedure Debridement -Clinical Debridement Subcutaneous -Tissue Removed Subcutaneous -Post Debridement (cm) - Length 3.3 -Post Debridement (cm) - Width 0.6 -Post Debridement (cm) - Depth 0.1 -Total Square (Post) (cm) 1.98 -Area of Debridement (cm) - Length 3.3 -Area of Debridement (cm) - Width 0.6 -Total Square (Area) (cm) 1.98 -Tunneling No -Undermining/Tunneling No -Circular Undermining No -Wound/Ulcer Outcome Not Healed -Ulcer Cleansing Rinsed/ Irrigated with Saline -Foul Odor after Cleansing No -Bioengineered Tissue No -Bleeding Controlled with Pressure -Offloading No -Treatment Response Procedure Tolerated Well -Debridement - Subq, 1st 20sq cm No #9 R Buttocks -Time 11:29 -Correct Patient Yes -Correct Side, Site, Position Yes -Correct Procedure Yes -Procedure Performed Yes -Type of Procedure Debridement -Clinical Debridement Subcutaneous -Tissue Removed Subcutaneous -Post Debridement (cm) - Length 8.5 -Post Debridement (cm) - Width 2.5 -Post Debridement (cm) - Depth 1.6 -Total Square (Post) (cm) 21.25 -Area of Debridement (cm) - Length 8.5 -Area of Debridement (cm) - Width 2.5 -Total Square (Area) (cm) 21.25 -Tunneling No -Undermining/Tunneling No -Circular Undermining No -Wound/Ulcer Outcome Not Healed -Ulcer Cleansing Rinsed/ Irrigated with Saline -Foul Odor after Cleansing No -Bioengineered Tissue No -Bleeding Controlled with Pressure -Offloading No -Treatment Response Procedure Tolerated Well -Debridement - Subq, 1st 20sq cm No #8 L Buttucks -Time 11:29 -Correct Patient Yes -Correct Side, Site, Position Yes -Correct Procedure Yes -Procedure Performed Yes -Type of Procedure Debridement -Clinical Debridement Subcutaneous -Tissue Removed Subcutaneous -Post Debridement (cm) - Length 8.0 -Post Debridement (cm) - Width 3.0 -Post Debridement (cm) - Depth 1.5 -Total Square (Post) (cm) 24.00 -Area of Debridement (cm) - Length 8.0 -Area of Debridement (cm) - Width 3.0 -Total Square (Area) (cm) 24.00 -Tunneling No -Undermining/Tunneling No -Circular Undermining No -Wound/Ulcer Outcome Not Healed -Ulcer Cleansing Rinsed/ Irrigated with Saline -Foul Odor after Cleansing No -Bioengineered Tissue No -Bleeding Controlled with Pressure -Offloading No -Treatment Response Procedure Tolerated Well -Debridement - Subq, 1st 20sq cm No Pain Scale: 0-10 Numeric Is Patient Pain Free? Yes - Nurse 3 - General Ulcer D/C NN Start: 03/26/21 11:09 Freq: Status: Active Protocol: Activity Type Activity Date Activity User E-Sign Co-Sign Detail Recorded Client Recorded Date Recorded By Document 03/26/21 11:45 IN [id number] 03/26/21 11:49 AK 03/26/21 11:45 Wound Care Nurse 3 #12 left sacral -Ulcer Cleansing Rinsed/ Irrigated with Saline -Foul Odor after Cleansing No -Negative Pressure Wound Therapy N/A #11 right sacral -Ulcer Cleansing Rinsed/ Irrigated with Saline #9 R Buttocks -Ulcer Cleansing Rinsed/ Irrigated with Saline #8 L Buttucks -Ulcer Cleansing Rinsed/ Irrigated with Saline Pain Scale: 0-10 Numeric Is Patient Pain Free? Yes - Visit Discharge Discharge Condition Stable Ambulatory Status Wheelchair Transportation Private Auto Accompanied by nurse Medication Reconcilliation completed & No provided to patient/care provider Clinical Summary of Care Provided Yes 03/26/21 11:46 Wound Center by Adiel Villanueva were to dry rinse with saline apply skin prep. Apply triple helix powder to wound bed. Cover with calcium alginate and allergen life bandages. His nurse does the entire nurse 3. Initialized on 03/26/21 11:46 - END OF NOTE Additional Wound Wound debrided: Right Sacral Type of Debridement: Excisional debridement Anesthesia Used: 4% Lidocaine Solution Depth: Down to and including healthy tissue and in the subcutaneous layer Percentage of wound debrided: 100 Instrument Used: 5mm curette Tissue Removed: Slough and devitalized tissue Severity: Fat Layer Exposed Amount of bleeding with debridement: Mild Bleeding Controlled with: Pressure Patient tolerated procedure: Patient tolerated procedure well Additional Wound Wound debrided: Left Buttock Type of Debridement: Excisional debridement Anesthesia Used: 4% Lidocaine Solution Depth: Down to and including healthy tissue Percentage of wound debrided: 100 Instrument Used: 5mm curette Tissue Removed: Slough and devitalized tissue Severity: Fat Layer Exposed Amount of bleeding with debridement: Mild Bleeding Controlled with: Pressure Patient tolerated procedure: Patient tolerated procedure well Additional Wound Wound debrided: Right Buttock Laterality: Left Type of Debridement: Excisional debridement Anesthesia Used: 4% Lidocaine Solution Depth: Down to and including healthy tissue and in the subcutaneous layer Instrument Used: 5mm curette Tissue Removed: Slough and devitalized tissue Severity: Fat Layer Exposed Amount of bleeding with debridement: Mild Bleeding Controlled with: Pressure Patient tolerated procedure: Patient tolerated procedure well Assessment/Plan Assessment/Plan (1) Sacral decubitus ulcer, stage IV: CODE(S): L89.154 - Pressure ulcer of sacral region, stage 4 (2) Decubitus ulcer of right buttock, stage 4: CODE(S): L89.314 - Pressure ulcer of right buttock, stage 4 (3) Decubitus ulcer of left buttock, stage 4: CODE(S): L89.324 - Pressure ulcer of left buttock, stage 4 (4) Chronic osteomyelitis involving pelvic region and thigh: CODE(S): M86.659 - Other chronic osteomyelitis, unspecified thigh (5) Paraplegia: CODE(S): G82.20 - Paraplegia, unspecified PLAN: Debridement done as documented above, procedure well-tolerated. Overall stable, no new concerns at this time. Continue 10 minute Acetic acid soak to all ulcers. Triple helix powder and Calcium alginate dressings to all ulcers and cover with Allevyn life bandages. Change daily to twice daily depending on drainage. May apply Adaptic to the healed portion of the sacral ulcer. Continue optimal dietary and protein intake. Offloading strongly recommended. His questions were answered and they were advised to call with any further questions or concerns. Follow up in 2 weeks. This note was generated with [employer] dictation software. It may contain incorrect words, spelling, and punctuation that were not noted in checking the note before signing.
== END 2021-04-13 23:59 ==
LOC: WC 11:15
PROVIDERS: PCP Internal Medicine; Visit Provider Internal Medicine
DX: L89.154 Pressure ulcer of sacral region, stage 4 (principal); L89.314 Pressure ulcer of right buttock, stage 4; L89.324 Pressure ulcer of left buttock, stage 4; G82.20 Paraplegia, unspecified; M86.659 Other chronic osteomyelitis, unspecified thigh; M46.28 Osteomyelitis of vertebra, sacral and sacrococcygeal region
CPT/HCPCS: 11042; 11045